=== PATIENT | male | born 1995 | race Caucasian/White ===

== ENCOUNTER 2022-04-01 10:30 | Outpatient (RCR) | payer OTHER, MEDICARE, MEDICAID, SELFPAY | END 2022-05-11 11:22 | disposition home or self-care (01) | PROVIDERS: PCP Physician Assistant Medical; Visit Provider Physician Assistant Medical | DX: Q05.9 Spina bifida, unspecified (principal); Z51.89 Encounter for other specified aftercare | CPT/HCPCS: 97110; 97140; 97161 ==

== ENCOUNTER 2022-05-27 15:08 | Outpatient (CLI) | payer OTHER, MEDICARE, MEDICAID, SELFPAY ==
--- OUTSIDE RECORDS SUMMARY | 2022-05-27 10:12 | XMS_ITS | Clinical Summary ---
:1995 Author Organization [facility] Address [address] [place] [address] Care Team Providers Name Role Phone Rob Tillman MD Primary Care Provider Source Comments You are receiving this document as you are listed as the primary care provider,follow-up provider, or the patient has been referred to you for consultation.This is in compliance with the Medicare and Medicaid EHR Incentive Program,which states Providers who transition their patient to another setting of careor provider of care or refers their patient to another provider of care shouldprovide summarycare record for each transition of care or referral. [facility] Allergies Active Allergy Reactions Severity Noted Date Comments Adhesive Rash 04/13/2013 Latex Other, see comments 09/12/2002 Precauti on Molds & Smuts Other, see comments 06/06/2012 [place] mo ld- Respiratory Distress Other Swelling 06/02/2012 Spider Venom: S evere local swelling Pollen Extract Breathing Difficulty High 06/02/2012 Nasal congestion Medications Medication Sig Dispensed Refills Start Date End Date Status Multiple daily. 0 Active Vitamins-Minerals (CENTRUM ADULTS OR) Carnitine 250 MG 500 mg Codeine 0 Active daily. cholecalciferol (VITAMIN Take 5,000 Units 0 Active D3) 1000 units tablet by mouth daily. cetirizine (ZYRTEC) 10 Take 1 Tablet by 0 06/02/2012 Active MG tablet mouth. ARIPiprazole (ABILIFY) 5 Take 1 Tablet (5 90 Tablet 1 12/12/19 22 Active MG tablet mg) by mouth daily. buPROPion (WELLBUTRIN Take 1 Tablet 90 Tablet 1 12/11/2021 Active XL) 300 MG 24 hour (300 mg) by release tablet mouth daily. sertraline (ZOLOFT) 100 Take 1 Tablet 90 Tablet 1 12/11/2021 Active MG tablet (100 mg) by mouth daily. methylphenidate Take 1 Tablet 90 Tablet 0 04/01/2022 Active (CONCERTA) 54 MG (54 mg) by mouth controlled release daily. tablet Active Problems Problem Noted Date Neurogenic dysfunction of the urinary bladder 12/19/19 21 Pelvic floor dysfunction 12/18/2020 Impaired mobility 10/13/2019 ADHD (attention deficit hyperactivity disorder), inatt entive type 08/30/2019 Nonverbal learning disorder 08/30/2019 Alternating esotropia with A pattern, s/p bimedial rec ession 10/05/07, then 09/23/2018 repair consecutive XT with bimedial advancement Overview: Surgery at [facility] - see scanned rec ords Hodgkin lymphoma, unspecified, lymph nodes of axilla a nd upper limb 04/21/2018 Spina bifida 04/21/2018 Attention deficit hyperactivity disorder (ADHD), combi divya type 06/07/2017 Major depressive disorder, single episode, severe 05/28 Mild intermittent asthma 06/03/2006 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 08/26 Encounters Date Type Specialty Care Team Description 05/13/2022 Office Visit Hematology and Wyatt Oneil Hodgki n lymphoma, Oncology unspecified, ly mph nodes of axilla and upper limb (HRC ) (Primary Dx) 04/17/2022 Lab Visit Laboratory Organic erectil e dysfunction 04/09/2022 Office Visit Urology Raj Castro, Organic er ectile dysfunction (Primary Dx); Neurogenic thalia gina 03/31/2022 Refill Psychiatry Humera Bush Refill MD (methylphenidat e); Rachelle 03/27/2022 Telemedicine Psychiatry Humera Bush, ADHD (at tention deficit hyperactivity disorder), inattentive type (HRC) (Primary Dx); Nonverbal learn ing disorder; Major depressiv e disorder, single episode, severe (HRC); Spina bifida, u nspecified hydrocephalus presence, unspecified spinal region (HRC); Anxiety (HRC) from Last 3 Months Immunizations Name Administration Dates Next Due Influenza IIV4 (Quadrivalent) 0.5mL (49438) 06/29/2019 Pfizer (Comirnaty) COVID-19, 12+ Yrs Purple Top 11/15/2020, 10/25/2020 Family History Medical History Relation Name Comments Glaucoma Negative Family History Macular Degeneration Negative Family History Retinal Detachment Negative Family History Social History Tobacco Use Types Packs/Day Years Used Date Smoking Tobacco: Never Smokeless Tobacco: Never Alcohol Use Standard Drinks/Week Comments Yes 0 (1 standard drink = 0.6 oz pure alcoho l) occasional Sex Assigned at Date Recorded Male 07/12/2021 3:57 PM UTILIZATION REVIEW NURSE Last Filed Vital Signs Vital Sign Reading Time Taken Comments Blood Pressure 135/72 05/13/2022 3:49 PM UTILIZATION REVIEW NURSE Pulse 82 05/13/2022 3:49 PM UTILIZATION REVIEW NURSE Temperature 36.6 ??C (97.8 ??F) 05/13/2022 3:49 PM UTILIZATION REVIEW NURSE Respiratory Rate 18 05/13/2022 3:49 PM UTILIZATION REVIEW NURSE Oxygen Saturation 100% 05/13/2022 3:49 PM UTILIZATION REVIEW NURSE Inhaled Oxygen Concentration - - Weight 69.3 kg (152 lb 12.8 oz) 05/13/2022 3:49 PM UTILIZATION REVIEW NURSE Height 154.9 cm (5' 1) 12/18/2020 2:08 PM CDT Body Mass Index 28.87 12/18/2020 2:08 PM CDT Plan of Treatment Upcoming Encounters Date Type Specialty Care Team Description 06/12/2022 Appointment Urology Raj Castro MD [address] [place], [place] [address] (Wo rk) 09/28/2022 Telemedicine Psychiatry Humera Bush MD [address] [place], [place] [address] (Wo rk) Health Maintenance Due Date Last Done Comments Hep C Screening (Preventive 1996 Services) HepB (1) 1996 Pneumococcal (1 - PCV) 2002 HIV Screening (Preventive 2012 Services) DTaP/Tdap/Td (6 - Tdap) 02/15/2014 02/14/2014, 10/30/2008, 10/10/2001, Additional history exists HPV Vaccine (2 - Male 09/12/2014 08/15/2014 3-dose series) HepA (2 of 2 - 2-dose 02/12/2015 08/15/2014 series) Zoster/Shingles (1 of 2) 2015 COVID-19 Vaccine (3 - 01/10/2021 11/15/2020, 10/25/2020 Booster for Pfizer series) Medicare Annual Wellness 06/28/2021 06/29/2019 Visit Asthma ACT 07/19/2021 07/19/2020, 07/19/2020, 08/16/2019, Additional history exists Influenza (#1) 2022 06/29/2019, 04/24/2016, 05/23/2014, Additional history exists MCV4 Completed 08/15/2014 Hib Aged Out No longer eligib le based on patient 's age to complete this topic IPV (Polio) Aged Out No longer eligib le based on patient 's age to complete this topic Procedures Procedure Name Priority Date/Time Associated Diagnosis Comme nts COMPLETE BLOOD STAT 05/13/2022 4:26 PM Hodgkin lymphoma, Re sults for this COUNT-W/DIFF UTILIZATION REVIEW NURSE unspecified, lymph procedure are in nodes of axilla and the resu lts upper limb (HRC) section. ANTITHYROID Routine 05/13/2022 4:26 PM Hodgkin lymphoma, Resu lts for this PEROXIDASE UTILIZATION REVIEW NURSE unspecified, lymph procedure are in nodes of axilla and the resu lts upper limb (HRC) section. TSH, SENSITIVE Routine 05/13/2022 4:26 PM Hodgkin lymphoma, Re sults for this UTILIZATION REVIEW NURSE unspecified, lymph procedure are in nodes of axilla and the resu lts upper limb (HRC) section. ESR Routine 05/13/2022 4:26 PM Hodgkin lymphoma, Resu lts for this UTILIZATION REVIEW NURSE unspecified, lymph procedure are in nodes of axilla and the resu lts upper limb (HRC) section. LD TOTAL (LDH) Routine 05/13/2022 4:26 PM Hodgkin lymphoma, Re sults for this UTILIZATION REVIEW NURSE unspecified, lymph procedure are in nodes of axilla and the resu lts upper limb (HRC) section. BASIC METABOLIC PANEL STAT 05/13/2022 4:26 PM Hodgkin lymph tony, Results for this UTILIZATION REVIEW NURSE unspecified, lymph procedure are in nodes of axilla and the resu lts upper limb (HRC) section. CBC AND DIFFERENTIAL STAT 05/13/2022 4:26 PM Hodgkin lympho ma, Results for this PANEL UTILIZATION REVIEW NURSE unspecified, lymph procedure are in nodes of axilla and the resu lts upper limb (HRC) section. LIPID PANEL AND Routine 04/17/2022 8:34 AM Organic erectile Re sults for this DIRECT LDL(IF NEEDED) CDT dysfunction proced ure are in the results section. HGB A1C Routine 04/17/2022 8:34 AM Organic erectile Resul ts for this CDT dysfunction procedure are i n the results section. TESTOSTERONE, MALES Routine 04/17/2022 8:34 AM Organic erectil e Results for this CDT dysfunction procedure are i n the results section. from Last 3 Months Results (ABNORMAL) Complete Blood Count-W/Diff (05/13/2022 4:26 PM UTILIZATION REVIEW NURSE) Analysis Performed At Patho logist Time Signature WBC 4.6 3.5 - 10.5 05/13/2022 [facility] x10(9)/L 4:[address] [facility] RBC 5.07 4.32 - 05/13/2022 [facility] 5.72 4:[address] [facility] x10(12)/L Hemoglobin 16.1 13.5 - 05/13/2022 [facility] 17.5 g/dL 4:[address] [facility] HCT 45.1 38.8 - 05/13/2022 [facility] 50.0 % 4:[address] [facility] MCV 89.0 80.0 - 05/13/2022 [facility] 100.0 fL 4:[address] [facility] MCH 31.8 27.6 - 05/13/2022 [facility] 33.3 pg 4:[address] [facility] MCHC 35.7 (H) 31.5 - 05/13/2022 [facility] 35.2 g/dL 4:[address] [facility] RDW 12.2 11.9 - 05/13/2022 [facility] 15.5 % 4:[address] [facility] Platelets 231 150 - 450 05/13/2022 [facility] x10(9)/L 4:37 PM UTILIZATION RE[facility]SE [facility] Automated NRBC 0 <=0 /100 05/13/2022 [facility] WBC 4:37 PM [facility] Neutrophil 2.2 1.7 - 7.0 05/13/2022 [facility] Absolute 10(9)/L 4:37 PM [facility] Lymphocyte 1.6 1.0 - 4.8 05/13/2022 [facility] Absolute 10(9)/L 4:37 PM [facility] Monocytes 0.6 0.2 - 0.9 05/13/2022 [facility] Absolute 10(9)/L 4:37 PM [facility] Eosinophil 0.2 0.0 - 0.5 05/13/2022 [facility] Absolute 10(9)/L 4:37 PM [facility] Basophil 0.1 0.0 - 0.3 05/13/2022 [facility] Absolute 10(9)/L 4:37 PM [facility] Automated Neut 2.2 10(9)/L 05/13/2022 [facility] Count (Prelim) 4:37 PM [facility] Comment: The Instrument Absolute Neutrop hil Count (IANC) is calculated from the automated differential and may differ sl ightly from the manual differential Absolute Neutrophil Count (IANC), if subsequently reported. Immature Gran % 0.0 0.0 - 0.5 % 05/13/2022 4:37 PM [facility] Specimen Anatomical Collection Method / Collection Time Recei rufus Time (Source) Location / Volume Laterality Blood Lab OP Venipuncture 05/13/2022 4:26 05/13 4:31 / Unknown PM UTILIZATION REVIEW NURSE PM UTILIZATION REVIEW NURSE Wyatt Oneil MD LAB_1 Performing Organization Address City/[facility]/ZIP [facility] Phon e Number [address] [address] TSH - today (05/13/2022 4:26 PM UTILIZATION REVIEW NURSE) P athologist Signature TSH, Sensitive 2.81 0.30 - 05/13/2022 [facility] 4.50 5:19 PM [facility] uIU/mL Specimen Anatomical Collection Method / Collection Time Recei rufus Time (Source) Location / Volume Laterality Blood Lab OP Venipuncture 05/13/2022 4:26 05/13 4:31 / Unknown PM UTILIZATION REVIEW NURSE PM UTILIZATION REVIEW NURSE Wyatt Oneil MD LAB_1 Performing Organization Address City/State/ZIP [facility] Phon e Number [address] [place] [address] Basic Metabolic Panel - STAT (05/13/2022 4:26 PM UTILIZATION REVIEW NURSE) athologist Signature Sodium 138 136 - 145 05/13/2022 [facility] mmol/L 5:06 PM [facility] Potassium 3.9 3.5 - 5.1 05/13/2022 [facility] mmol/L 5:06 PM [facility] Chloride 100 98 - 109 05/13/2022 [facility] mmol/L 5:[address] [facility] CO2 28 20 - 29 05/13/2022 [facility] mmol/L 5:06 PM [facility] Anion Gap 10 7 - 16 05/13/2022 [facility] mmol/L 5:06 PM [facility] Calcium 9.9 8.4 - 10.4 05/13/2022 [facility] mg/dL 5:06 PM [facility] BUN 15 7 - 26 05/13/2022 [facility] mg/dL 5:06 PM [facility] Creatinine 0.90 0.73 - 1.18 05/13/2022 [facility] mg/dL 5:06 PM [facility] Glucose 91 70 - 100 05/13/2022 [facility] mg/dL 5:06 PM [facility] Comment: The given reference range is fo r the fasting state. Non-fasting reference range for glucose is 70 - 180 mg/dL. Hours Fasting N/A 05/13/2022 5:06 PM [facility] GFR, Estimated >60 >60 mL/min/1.73m2 05/13/2022 5:06 P [facility] Specimen Anatomical Collection Method / Collection Time Recei rufus Time (Source) Location / Volume Laterality Blood Lab OP Venipuncture 05/13/2022 4:26 05/13 4:31 / Unknown PM UTILIZATION REVIEW NURSE PM UTILIZATION REVIEW NURSE Wyatt Oneil MD LAB_1 Performing Organization Address City/State/ZIP Code Phon e Number [facility] [address] [place] [address] Thyroperoxidase (TPO) Antibody (05/13/2022 4:26 PM UTILIZATION REVIEW NURSE) Patholo gist Method Time Signature Thyroperoxidase Ab <1 <=8 IU/ml 05/14/2022 [facility] 12:43 PM [facility] UTILIZATION REVIEW NURSE Specimen Anatomical Collection Method / Collection Time Recei rufus Time (Source) Location / Volume Laterality Blood Lab OP Venipuncture 05/13/2022 4:26 05/13 4:31 / Unknown PM UTILIZATION REVIEW NURSE PM UTILIZATION REVIEW NURSE Wyatt Oneil MD LAB_1 Performing Organization Address [facility]/ZIP Code Phon e Number [facility] [address] [address] Lactate Dehydrogenase (LDH) (05/13/2022 4:26 PM UTILIZATION REVIEW NURSE) P athologist Signature LD 172 119 - 235 05/13/2022 [facility] U/L 4:55 PM UTIL[facility]ATION REVIEW [facility]SE [facility]OSPITAL Specimen Anatomical Collection Method / Collection Time Recei rufus Time (Source) Location / Volume Laterality Blood Lab OP Venipuncture 05/13/2022 4:26 05/13 4:31 / Unknown PM UTILIZATION REVIEW NURSE PM UTILIZATION REVIEW NURSE Wyatt Oneil MD LAB_1 Performing Organization Address [facility] e Number [address] [address] ESR (Sedimentation Rate) (05/13/2022 4:26 PM UTILIZATION REVIEW NURSE) Analysis Performed At Patho logist Time Signature Sedimentation Rate 2 0 - 15 05/13/2022 [facility] mm/hr 5:38 PM UTILIZATION REVIEW NURSE HOSPITAL Specimen Anatomical Collection Method / Collection Time Recei rufus Time (Source) Location / Volume Laterality Blood Lab OP Venipuncture 05/13/2022 4:26 05/13 4:31 / Unknown PM UTILIZATION REVIEW NURSE PM UTILIZATION REVIEW NURSE Wyatt Oneil MD LAB_1 Performing Organization Address City/[facility] Phon e Number [address] [address] (ABNORMAL) Lipid Panel and Direct LDL (If Needed) (04/17/2022 8:34 AM CDT) Patholo gist Method Time Signature Cholesterol 210 (H) 0 - 199 04/17/2022 [facility] mg/dL 11:09 AM CENTRAL LAB CDT Triglyceride 191 (H) <=149 04/17/2022 [facility] mg/dL 11:09 AM [facility]AL LAB CDT HDL Cholesterol 33 (L) >=40 04/17/2022 [facility] mg/dL 11:09 AM [facility] CDT LDL, Calculated 139 (H) <130 04/17/2022 [facility] mg/dL 11:09 AM [facility] LAB CDT Non HDL Chol, 177 (H) <=159 04/17/2022 [facility] Calculated mg/dL 11:09 AM [facility]TRAL LAB CDT Cholesterol/HDL 6.4 04/17/2022 [facility] Ratio 11:09 AM [facility] LAB CDT Hours Fasting 0 04/17/2022 [facility] 11:09 AM CDT Specimen Anatomical Collection Method / Collection Time Recei rufus Time (Source) Location / Volume Laterality Blood Venipuncture / 04/17/2022 8:34 04/17/2022 8:38 Unknown AM CDT AM CDT Raj Castro MD LAB_1 Performing Organization Address [facility] Phon e Number [facility] [address] [address] [facility] [address] [place] [address] Testosterone,Adult Males or Individuals on Testosterone Hormone Therapy (04/17/2022 8:34 AM CDT) Analysis Performed At Patho logist Time Signature Testosterone 389 200 - 745 04/17/2022 [facility] ng/dL 11:40 AM CDT CENTRAL LAB Specimen Anatomical Collection Method / Collection Time Recei rufus Time (Source) Location / Volume Laterality Blood Venipuncture / 04/17/2022 8:34 04/17/2022 8:38 Unknown AM CDT AM CDT Raj Castro MD LAB_1 Performing Organization Address City/[facility] Phon e Number [facility] [address] [address] Hgb A1C (04/17/2022 8:34 AM CDT) Patholo gist Method Time Signature Hemoglobin A1C 4.8 <=5.6 % 04/17/2022 [facility] 11:44 AM CDT CEN[facility]AL LAB Specimen Anatomical Collection Method / Collection Time Recei rufus Time (Source) Location / Volume Laterality Blood Venipuncture / 04/17/2022 8:34 04/17/2022 8:38 Unknown AM CDT AM CDT Raj Castro MD LAB_1 Performing Organization Address City/State/ZIP Code Phon e Number [facility] [address] [place] [phone] from Last 3 Months Insurance Payer Benefit Plan Subscriber ID Effective Phone Address Typ e / Group Dates [facility] SELF [id number] 2014-Prese Commercial INSURED nt [employer]ARE [employer] [id number] 2021-Prese [phone] Medicare PLUS MEDICARE nt 07 Fly Moran Personal/Family Self 1995 [address] (Home) [address] [place] [id number] Care Teams Weatherization Specialist Relationship Specialty Start Date End Date Rob Tillman MD PCP - General Physical Medicine and 08/01/19 [address] [facility] [place], [place] [id number]
--- OUTSIDE RECORDS SUMMARY | 2022-05-27 10:12 | XMS_ITS | Encounter Summary ---
:1995 Author Organization Formerly [facility] Address [address] [place] [address] Care Team Providers Name Role Phone Rob Tillman MD Primary Care Provider Encounter Details Date Type Department Care Team Description 05/13/2022 Office Visit [facility] Cancer [facility], [facility] MD Brina unspecified, [facility] [address] [facility] nodes of axilla and [address] [place], [place] upper limb (HRC) [place] [phone] (Primary Dx) [phone] Social History Tobacco Use Types Packs/Day Years Used Date Smoking Tobacco: Never Smokeless Tobacco: Never Alcohol Use Standard Drinks/Week Comments Yes 0 (1 standard drink = 0.6 oz pure alcoho l) occasional Sex Assigned at Date Recorded Male 07/12/2021 3:57 PM [employer] documented as of this encounter Last Filed Vital Signs Vital Sign Reading Time Taken Comments Blood Pressure 135/72 05/13/2022 3:49 PM [employer] Pulse 82 05/13/2022 3:49 PM [employer] Temperature 36.6 ??C (97.8 ??F) 05/13/2022 3:49 PM [employer] Respiratory Rate 18 05/13/2022 3:49 PM [employer] Oxygen Saturation 100% 05/13/2022 3:49 PM [employer] Inhaled Oxygen Concentration - - Weight 69.3 kg (152 lb 12.8 oz) 05/13/2022 3:49 PM [employer] Height - - Body Mass Index 28.87 12/18/2020 2:08 PM CDT documented in this encounter Patient Instructions Patient InstructionsWiIsabel cordoba - 05/13/2022 3:50 PM CST DIAGNOSES: 1. 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 2. Mild neutropenia, persistent following prior chemotherapy. TREATMENT: 1. 4 months of ABVE-PC chemotherapy followed by 2100 cGy of radiation therapy to the chest and mediastinum, completed June 2013. PLAN: Lab work today Return 1 year Wyatt Oneil MD Patient placed on 1 year wait list and directed to OP lab. SCW 4:22 PM 05/13/22 ER AIRCRAFT documented in this encounter Progress Notes Wyatt Oneil MD - 05/13/2022 3:50 PM CST This office note has been dictated. [phone] Wyatt Oneil MD ER AIRCRAFT Karen Heath RN - 05/13/2022 3:50 PM CST Completed per provider's orders. Patient sent to OP lab Placed on 1 year waitlist for follow up with Dr. Oneil QOPI: Is patient starting new chemotherapy medications today or in the near future? No Karen Clark RN BSN 05/13/2022 4:28 PM ER AIRCRAFT Wyatt Oneil MD - 05/13/2022 12:00 AM CST NAME: LUCÍA MARTINEZ CSN: [id number] CLINIC NOTE DATE OF SERVICE: 05/13/2022 : 1995 DIAGNOSES: 1.History of stage II nodular-sclerosing Hodgkin lymphoma diagnosed in February 2013 at [facility], manifesting as 6.4 cm mediastinal mass with PET scan evidence of bilateral axillae and supraclavicular lymph node involvement identified with PET-CT and bone marrow biopsy. 2.Mild neutropenia persisting following prior chemotherapy. 3.Spina bifida. TREATMENT: Four months of ABVE-PC chemotherapy, followed by 2100 cGy of radiation therapy to the chest and mediastinum completed June 2013. SUBJECTIVE: Patient and his mother return for followup of a history of stage II nodular-sclerosing Hodgkin lymphoma. He is a 26-year-old man, now nearly 9 years status post completion of all therapy. For the most part, he feels well. He has been evaluated for erectile dysfunction. He follows with Dr. Tillman for spina bifida. 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 He still admits to fatigue. He has had a somewhat pruritic papular rash over his arms, which he feels isrelated to picking his skin. He has had no fevers, night sweats, or weight loss. There have been no infectious symptoms. He has been fully vaccinated for COVID-19, but also suffered COVID infection last July. PHYSICAL EXAMINATION: HEENT: There is no conjunctival pallor. Lymph: There is no cervical or axillary adenopathy. Neck: There is no thyromegaly. Skin: He has a number of excoriated papules over his arms. There is a little erythema in his lumbosacral incision. Lungs: Clear. Heart: Regular. Abdomen: Soft. No hepatosplenomegaly. ASSESSMENT: Nine years following chemoradiotherapy for stage IIA Hodgkin lymphoma with no clinical evidence of recurrence. PLAN: He is due for repeat labs today. He will return to clinic in 1 year. WYATT ONEIL MD [facility]ICOLE /[id number] ER AIRCRAFT documented in this encounter Plan of Treatment Upcoming Encounters Date Type Specialty Care Team Description 06/12/2022 Appointment Urology Raj Castro MD [address] [place] [address] [phone] (Wo rk) 09/28/2022 Telemedicine Psychiatry Humera Bush MD [address] [place] [phone] (Wo rk) documented as of this encounter Procedures Procedure Name Priority Date/Time Associated Comments Diagnosis CBC AND DIFFERENTIAL STAT 05/13/2022 4:26 PM Hodgkin lympho ma, Results for this PANEL [employer] unspecified, lymph procedure are in nodes of axilla and the resu lts upper limb (HRC) section. COMPLETE BLOOD STAT 05/13/2022 4:26 PM Hodgkin lymphoma, Re sults for this COUNT-W/DIFF [employer] unspecified, lymph procedure are in nodes of axilla and the resu lts upper limb (HRC) section. TSH, SENSITIVE Routine 05/13/2022 4:26 PM Hodgkin lymphoma, Re sults for this [employer] unspecified, lymph procedure are in nodes of axilla and the resu lts upper limb (HRC) section. BASIC METABOLIC PANEL STAT 05/13/2022 4:26 PM Hodgkin lymph tony, Results for this [employer] unspecified, lymph procedure are in nodes of axilla and the resu lts upper limb (HRC) section. ANTITHYROID Routine 05/13/2022 4:26 PM Hodgkin lymphoma, Resu lts for this PEROXIDASE [employer] unspecified, lymph procedure are in nodes of axilla and the resu lts upper limb (HRC) section. LD TOTAL (LDH) Routine 05/13/2022 4:26 PM Hodgkin lymphoma, Re sults for this [employer] unspecified, lymph procedure are in nodes of axilla and the resu lts upper limb (HRC) section. ESR Routine 05/13/2022 4:26 PM Hodgkin lymphoma, Resu lts for this [employer] unspecified, lymph procedure are in nodes of axilla and the resu lts upper limb (HRC) section. documented in this encounter Results (ABNORMAL) Complete Blood Count-W/Diff (05/13/2022 4:26 PM [employer]) Analysis Performed At [facility] logist Time Signature WBC 4.6 3.5 - 10.5 05/13/2022 [facility] x10(9)/L 4:37 PM [facility] RBC 5.07 4.32 - 05/13/2022 [facility] 5.72 4:37 PM [facility] x10(12)/L Hemoglobin 16.1 13.5 - 05/13/2022 [facility] 17.5 g/dL 4:37 PM [facility] HCT 45.1 38.8 - 05/13/2022 [facility] 50.0 % 4:37 PM [facility] MCV 89.0 80.0 - 05/13/2022 [facility] 100.0 fL 4:37 PM [facility] MCH 31.8 27.6 - 05/13/2022 [facility] 33.3 pg 4:37 PM [facility] MCHC 35.7 (H) 31.5 - 05/13/2022 [facility] 35.2 g/dL 4:37 PM [facility] RDW 12.2 11.9 - 05/13/2022 [facility] 15.5 % 4:37 PM [facility] Platelets 231 150 - 450 05/13/2022 [facility] x10(9)/L 4:37 PM [facility] Automated NRBC 0 <=0 /100 05/13/2022 [facility] WBC 4:37 PM [facility] Neutrophil 2.2 1.7 - 7.0 05/13/2022 [facility] Absolute 10(9)/L 4:37 PM [facility] Lymphocyte 1.6 1.0 - 4.8 05/13/2022 [facility] Absolute 10(9)/L 4:37 PM [facility] Monocytes 0.6 0.2 - 0.9 05/13/2022 [facility] Absolute 10(9)/L 4:37 PM [facility] Eosinophil 0.2 0.0 - 0.5 05/13/2022 [facility] Absolute 10(9)/L 4:37 PM [facility] Basophil 0.1 0.0 - 0.3 05/13/2022 [facility] Absolute 10(9)/L 4:37 PM [facility] Automated Neut 2.2 10(9)/L 05/13/2022 [facility] Count (Prelim) 4:37 PM [facility] Comment: The Instrument Absolute Neutrop hil Count (IANC) is calculated from the automated differential and may differ sl ightly from the manual differential Absolute Neutrophil Count (IANC), if subsequently reported. Immature Gran % 0.0 0.0 - 0.5 % 05/13/2022 4:37 PM [employer] [facility] Specimen Anatomical Collection Method / Collection Time Recei rufus Time (Source) Location / Volume Laterality Blood Lab OP Venipuncture 05/13/2022 4:26 05/13 4:31 / Unknown PM [employer] PM [employer] Wyatt Oneil MD LAB_1 Performing Organization Address [facility]/ZIP Code Phon e Number [address] [address] Thyroperoxidase (TPO) Antibody (05/13/2022 4:26 PM [employer]) Patholo gist Method Time Signature Thyroperoxidase Ab <1 <=8 IU/ml 05/14/2022 [facility] NERS 12:43 PM CENTRAL LAB [employer] Specimen Anatomical Collection Method / Collection Time Recei rufus Time (Source) Location / Volume Laterality Blood Lab OP Venipuncture 05/13/2022 4:26 05/13 4:31 / Unknown PM [employer] PM [employer] Wyatt Oneil MD LAB_1 Performing Organization Address [facility]/ZIP [facility] Phon e Number [facility] CENTRAL LAB [address] [address] TSH - today (05/13/2022 4:26 PM [employer]) P athologist Signature TSH, Sensitive 2.81 0.30 - 05/13/2022 [facility] 4.50 5:19 PM [facility] uIU/mL Specimen Anatomical Collection Method / Collection Time Recei rufus Time (Source) Location / Volume Laterality Blood Lab OP Venipuncture 05/13/2022 4:26 05/13 4:31 / Unknown PM [employer] PM [employer] Wyatt Oneil MD LAB_1 Performing Organization Address [facility]/ZIP [facility] Phon e Number [address] [address] ESR (Sedimentation Rate) (05/13/2022 4:26 PM [employer]) Analysis Performed At Patho logist Time Signature Sedimentation Rate 2 0 - 15 05/13/2022 [facility] mm/hr 5:38 PM [facility] Specimen Anatomical Collection Method / Collection Time Recei rufus Time (Source) Location / Volume Laterality Blood Lab OP Venipuncture 05/13/2022 4:26 05/13 4:31 / Unknown PM [employer] PM [employer] Wyatt Oneil MD LAB_1 Performing Organization Address [facility] e Number [address] [address] Lactate Dehydrogenase (LDH) (05/13/2022 4:26 PM [employer]) athologist Signature LD 172 119 - 235 05/13/2022 [facility] U/L 4:55 PM [facility] Specimen Anatomical Collection Method / Collection Time Recei rufus Time (Source) Location / Volume Laterality Blood Lab OP Venipuncture 05/13/2022 4:26 05/13 4:31 / Unknown PM [employer] PM [employer] Wyatt Oneil MD LAB_1 Performing Organization Address [facility] e Number [address] [address] Basic Metabolic Panel - STAT (05/13/2022 4:26 PM [employer]) athologist Signature Sodium 138 136 - 145 05/13/2022 [facility] mmol/L 5:06 PM [facility] Potassium 3.9 3.5 - 5.1 05/13/2022 [facility] mmol/L 5:06 PM [facility] Chloride 100 98 - 109 05/13/2022 [facility] mmol/L 5:06 PM [facility] CO2 28 20 - 29 05/13/2022 [facility] mmol/L 5:06 PM [facility] Anion Gap 10 7 - 16 05/13/2022 [facility] mmol/L 5:06 PM [facility] Calcium 9.9 8.4 - 10.4 05/13/2022 [facility] mg/dL 5:06 PM [facility] BUN 15 7 - 26 05/13/2022 [facility] mg/dL 5:06 PM [facility] Creatinine 0.90 0.73 - 1.18 05/13/2022 [facility] mg/dL 5:06 PM [facility] Glucose 91 70 - 100 05/13/2022 [facility] mg/dL 5:06 PM [facility] Comment: The given reference range is fo r the fasting state. Non-fasting reference range for glucose is 70 - 180 mg/dL. Hours Fasting N/A 05/13/2022 5:06 PM [employer] [facility] GFR, Estimated >60 >60 mL/min/1.73m2 05/13/2022 5:06 P M [employer] [facility] Specimen Anatomical Collection Method / Collection Time Recei rufus Time (Source) Location / Volume Laterality Blood Lab OP Venipuncture 05/13/2022 4:26 05/13 4:31 / Unknown PM [employer] PM [employer] Wyatt Oneil MD LAB_1 Performing Organization Address City/State/ZIP Code Phon e Number [facility] [address] [place] [address] documented in this encounter Visit Diagnoses Diagnosis Hodgkin lymphoma, unspecified, lymph nod es of axilla and upper limb (HRC) - Primary documented in this encounter Care Teams Systems Test Technician Relationship Specialty Start Date End Date Rob Tillman MD PCP - General Physical Medicine and 08/01/[address] [facility] [place] [address] documented as of this encounter
--- OUTSIDE RECORDS SUMMARY | 2022-05-27 10:12 | XMS_ITS | Encounter Summary ---
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 Please schedule an appointment with your primary care provider to discuss treatment options. Rob Tillman MD 04/20/2022, 12:21 PM documented in this encounter Plan of Treatment Upcoming Encounters Date Type Specialty Care Team Description 06/12/2022 Appointment Urology Raj Castro MD [address] [place] [phone] (Wo rk) 09/28/2022 Telemedicine Psychiatry Humera Bush MD [address] [place] [phone] (Wo rk) documented as of this encounter Procedures Procedure Name Priority Date/Time Associated Diagnosis Comme nts LIPID PANEL AND Routine 04/17/2022 8:34 AM Organic erectile Re sults for this DIRECT LDL(IF CDT dysfunction procedure are in NEEDED) the results section. TESTOSTERONE, MALES Routine 04/17/2022 8:34 AM Organic erectil e Results for this CDT dysfunction procedure are i n the results section. HGB A1C Routine 04/17/2022 8:34 AM Organic erectile Resul ts for this CDT dysfunction procedure are i n the results section. documented in this encounter Results (ABNORMAL) Lipid Panel and Direct LDL (If Needed) (04/17/2022 8:34 AM CDT) [facility] gist Method Time Signature Cholesterol 210 (H) 0 - 199 04/17/2022 [facility] mg/dL 11:09 AM CENTRAL LAB CDT Triglyceride [...] CENTRAL LAB CDT Hours Fasting 0 04/17/2022 [facility] 11:09 AM CDT Specimen Anatomical Collection Method / Collection Time Recei rufus Time (Source) Location / Volume Laterality Blood Venipuncture / 04/17/2022 8:34 04/17/2022 8:38 Unknown AM CDT AM CDT Raj aCstro MD LAB_1 Performing Organization Address City/State/ZIP Code Phon e Number [employer] [facility] CENTRAL LAB [address] [address] [facility] [address] [place] [address], [facility] Hgb A1C (04/17/2022 8:34 AM CDT) Patholo gist Method Time Signature Hemoglobin A1C 4.8 <=5.6 % 04/17/2022 [facility] 11:44 AM CDT CENTRAL LAB Specimen Anatomical Collection Method / Collection Time Recei rufus Time (Source) Location / Volume Laterality Blood Venipuncture / 04/17/2022 8:34 04/17/2022 8:38 Unknown AM CDT AM CDT Raj Castro MD LAB_1 Performing Organization Address City/[facility]/ZIP Code Phon e Number [facility] CENTRAL LAB [address] [address] Testosterone,Adult Males or Individuals on Testosterone Hormone Therapy (04/17/2022 8:34 AM CDT) Analysis Performed At Patho logist Time Signature Testosterone 389 200 - 745 04/17/2022 [facility] ng/dL 11:40 AM CDT CENTRAL LAB Specimen Anatomical Collection Method / Collection Time Recei rufus Time (Source) Location / Volume Laterality Blood Venipuncture / 04/17/2022 8:34 04/17/2022 8:38 Unknown AM CDT AM CDT Raj Castro MD LAB_1 Performing Organization Address City/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
--- OUTSIDE RECORDS SUMMARY | 2022-05-27 10:12 | XMS_ITS | Encounter Summary ---
:1995 Author Organization [employer] Address [address] [place] [address] Care Team Providers Name Role Phone Rob Tillman MD Primary Care Provider Reason for Visit Reason Comments CONSULT ED Encounter Details Date Type Department Care Team Description 04/09/2022 Office Visit Specialty Center Raj Castro Org anic erectile dysfunction (Primary Dx); [facility] Neurogenic bladder [address] [place] [address] [place], [place] [phone] [id number] Social History Tobacco Use Types Packs/Day Years Used Date Smoking Tobacco: Never Smokeless Tobacco: Never Alcohol Use Standard Drinks/Week Comments Yes 0 (1 standard drink = 0.6 oz pure alcoho l) occasional Sex Assigned at Date Recorded Male 07/12/2021 3:57 PM [employer] documented as of this encounter Patient Instructions Patient InstructionsRaj Castro MD - 04/09/2022 1:45 PM CDT Images from the original note were not included. What is Erectile Dysfunction? Male Reproductive Organs Erectile dysfunction, or ED, is when it is hard to get or keep an erection that's firm enough for sex. ED affects as many as 30 million men. Most men have problems with erections from time to time. But when this happens more than half of thetime, then ED is present. ED can happen when health problems limit blood flow or damage nerves in the penis. ED can also be caused by stress or emotional reasons. ED can be an early warning of a more serious illness. Heart disease, high blood pressure and high blood sugar can all cause ED. Finding andtreating the cause(s) of your ED can help your overall health and well-being. How Erections Work When you are not sexually aroused, your penis is soft and limp. During sexual arousal, nerve messages release chemicals that increase blood flow into the penis. The blood flows into 2 erection chambersmade of spongy tissue (the corpus cavernosum) in the penis. The smooth muscle in the erection chambers relaxes, which lets blood enter and stay in the chambers. The pressure of the blood in the chambers makes the penis firm, giving you an erection. After you have an orgasm, the blood flows out of the chambers and the erection goes away. What are the Symptoms of ED? When you have ED, it is hard to get or keep an erection that is firm enough for sex. Most men have trouble with erections from time to time, but in some men it is a regular and more bothersome problem.ED can cause: Low self-esteem Performance anxiety Depression Stress ED may affect the quality of a marriage or intimate relationships. What Causes ED? ED can result from health or emotional problems or from both. Lower blood flow or harm to nerves in the penis can lead to erection problems. Physical Causes of ED Some things that can increase the chances of getting ED (known as risk factors) are: Age over 50 High blood sugar (diabetes) High blood pressure High cholesterol Smoking Cardiovascular disease Drug or alcohol abuse Obesity Lack of exercise Even though ED becomes more common as men age, growing old is not the cause of the problem. ED can be an early sign of a more serious health problem. Finding and treating the cause(s) of your ED can improve your overall health and well-being. ED may happen because: Not enough blood flows into the penis Many health issues can reduce blood flow into the penis, such as heart disease, high blood sugar (diabetes), and smoking. The penis cannot store blood during an erection A man with this problem cannot keep an erection because blood does not stay trapped in the penis. This condition can occur in men of any age. Nerve signals from the brain or spinal cord do not reach the penis Certain diseases, injury or surgery in the pelvic area can harm nerves in the penis. Emotional Causes of ED Sex activity needs the mind and body to work together. Emotional or relationship problems can cause or worsen ED. Some emotional issues that can cause ED are: Depression Relationship conflicts Stress at home or work Worry about sexual performance How is ED Diagnosed? Finding the cause of your ED will help your health care provider find the best treatment choices foryou. Most health care providers will ask you about your general health and the history of your erection problem. Your health care provider may also give you a physical exam and order lab tests. Health and ED History Your doctor will ask you questions about your health and lifestyle. For example, certain medicines may be helping to cause your ED. Also, smoking or alcohol use can affect erections. Being open with your health providers will allow them to find the best treatment choices for you. It's important to discuss different things that you can do to improve your condition and your health. What Questions Might My Health Care Provider Ask? Questions About Health Problems Some questions you may be asked are: What health problems do you have? What medicines do you take? Do you smoke, drink, or use other drugs? If so, how much? Do you have any prior history of surgery or radiation therapy, especially in the pelvic area? Do you have urinary problems? Questions About ED Asking questions about your history of ED can help your health care provider find out whether your problems are with desire for sex, erection, ejaculation, or orgasm (climax). Some of these questions will be personal and may seem embarrassing. Honest answers will help find the cause and best treatmentfor your ED. Some questions about your ED that you may be asked are: How long have you had these symptoms? Did they start slowly or all at once? Do you wake up in the morning with an erection? Do you wake up during the night with an erection? If you do have erections, how firm are they? Is penetration difficult? Do your erections change at different times such as when entering a partner, during stimulation by mouth or with masturbation? Do you have problems with sex drive, arousal, ejaculation, or orgasm (climax)? How is this problem affecting your enjoyment of sex? What effect is this problem having on your relationship (if you are in one)? Questions About Stress and Emotional Health Your health care provider may ask you questions about feelings such as depression or worry. He or she may also ask about problems in your relationship with a partner. Some health care providers may askif it is okay to talk to your sex partner, also. Some questions you may be asked about your emotional health are: How is your relationship with your partner? Has anything changed lately? How satisfied are you with your sex life? Has anything changed lately? Are you under a lot of stress most of the time? Or has anything especially upsetting happened to you? Do you have any mental illnesses or depression? Are you taking any meds for depression or anxiety? Physical Exam A physical exam checks overall health. This may involve checking your blood pressure, penis and testicles. You may need to have a rectal exam to check your prostate. These tests are not painful and maygive useful information about the cause of your ED. Most patients do not need a lot of testing before starting treatment. Lab Tests To test for diseases that cause ED, your health care provider may order blood tests and collect a urine sample. Other Tests Erectile Function Tests Your health care provider will test to see how the blood vessels, nerves, muscles and other tissues of your penis and pelvic area are working. Normal nocturnal penile tumescence (NPT), or healthy automatic erections during sleep, shows that your nerves and blood supply are working properly. Imaging A duplex ultrasound shows what's happening inside your body by bouncing sound waves off an organ to form pictures on a monitor. It checks for blood flow, vein leaks, scars on erectile tissue and some signs of clogged arteries. If you take this test, you may be given an injection into your penis to cause an erection. The desktop technician can then see how the blood flow and pressure changes in your penis, aswell as how it expands. These images are compared to images of the limp penis. How is ED Treated? The treatment for ED depends on what is causing it. Your health care provider may ask you to change certain habits, stop smoking, or using drugs or alcohol. He or she may suggest treatment for emotional problems, relationship conflicts, depression, or performance anxiety. Or you may be asked to change the way you take other medicines. (Never stop or change any drug without first talking to your health care provider.) Testosterone Replacement Therapy If a blood test shows low testosterone levels (low T), testosterone replacement therapy (TRT) may help. However, adding TRT will not help your erection problems if you have normal testosterone levels. Supplements Dietary supplements (often called herbal remedies) for ED are popular but may not be safe or even work. Unlike prescription drugs, they do not have to be proven to work to be sold. Check with your health care provider before you take any supplements or drugs to treat your ED. Other Treatments Most of the best-known treatments for ED work well and are safe. But in making your choice, ask yourhealth care provider about any possible problems that could result with each option: Vacuum erection device Oral drugs Drugs in the penis Surgery Vacuum Erection Device Vacuum Erection Device National [place] of Diabetes and Digestive and Kidney Diseases, National Institutes of Health A vacuum erection device is a plastic tube that slips over the penis, making a seal with the skin ofthe body. A pump at the other end of the tube creates a low-pressure vacuum around the erectile tissue, which results in an erection. An elastic ring is then slipped onto the base of the penis. This holds the blood in the penis (and keeps it hard) for up to 30 minutes. With proper training, 75 out of 100 men can get a working erection using a vacuum erection device. Oral Drugs Drugs known as PDE-5 inhibitors relax muscle cells in the penis and increase blood flow. (These are the drugs you often see on TV and in Internet ads.) Viagra?? (sildenafil citrate) Levitra?? (vardenafil HCl) Cialis?? (tadalafil) Men with ED take these pills before having sex. The drugs boost the natural signals that are generated during sex to help you have a better erection that lasts longer. The drug works by relaxing the muscle cells in the penis, letting the blood flow better to give a firm erection. These drugs often work well, and nearly 80 out 100 men show improvement once they start using them. The side effects of PDE-5 inhibitors are mild and often last just a short time. The side effects also get weaker the longer you use the drug. The most common side effects are: Headache Stuffy nose Flushing Muscle aches In rare cases, sildenafil can cause blue-green shading of vision that lasts for a short time. There is no long-term risk and the problem goes away as the amount of the drug in the body lowers. It is important to follow the instructions for taking this drug to get the best results. If you are taking nitrates for your heart, you should speak with your health care provider before using a PDE-5 inhibitor to learn how it might affect your health. Drugs in the Penis If oral drugs don't work, another drug, alprostadil, is approved for use in men with ED. This drug comes in two forms, depending on how it is to be used: Self-Injection Therapy Medical Injections for Impotence The drug is injected into the side of penis with a very fine needle. The success rate for getting anerection firm enough to have sex is as high as 85%. Intraurethral Therapy Transurethral Therapy for Impotence A tiny medicated pellet of the drug is placed in the urethra (the tube that carries urine out of your body). Using the drug this way avoids having to give yourself a shot, but makes it less likely to work. The most common side effects of alprostadil are a burning feeling in the penis, and an erection thatcan last for over four hours and need medical attention to make it go down. Surgical Treatment When other treatments do not improve ED, your health care provider may offer you surgery. Surgeries that help treat ED are penile implant surgery and surgeries to fix problems with blood vessels in thepenis. Fixing blood vessels only helps in very specific cases. Penile Prostheses Penile implants (also called penile prostheses) are devices that are placed completely inside your body. They produce a stiff penis that lets you have normal sex. Penile implants are a good treatment choice for some men. There are two types of penile implants. Bendable Implant The simplest kind of implant consists of 2 [id number] rods that are most often made of silicone. These silicone rods give the man's penis the firmness needed to have sex. The implant can be bent downward for peeing or upward for sex. Inflatable Implant Penile Pump Implant - Inflatable Image ?? 2002 [employer]. With an inflatable implant, fluid-filled cylinders are placed lengthwise in the penis. Tubing connects these rods to a pump that is placed inside the scrotum (the sac that holds the testicles). When the pump pushes fluid into the cylinders, they make the penis hard. Inflatable implants are the most natural feeling of the penile implants, as they let you control firmness and size. In the simplest inflatable implants, the pump moves a small amount of fluid into the cylinders for erection then out again when erection is no longer needed. These devices are often called 2-part (or 2-component) penile implants. One part is the paired cylinders and the second part is the scrotal pump. A 3-part inflatable penile implant has paired cylinders, a scrotal pump, and a fluid reservoir in the belly. With these three-part devices, a larger volume of fluid is pumped into the cylinders for erection and out of the cylinders when erection is no longer needed. What is the Surgery Like? Penile implants are usually placed under anesthesia, during a 1-hour surgery. Usually 1 small surgical cut is made either above the penis where it joins the abdomen or under the penis where it joins the scrotum. No tissue is removed, blood loss is small and blood transfusion is almost never needed. A patient will usually spend 1 night in the hospital for observation. Most men have pain after the surgery for about 4 weeks. During this time, oral pain medicine is needed and you are not allowed to drive. If men limit their physical activity while pain is present, the pain usually ends sooner. Men can often be taught how to use the prosthesis for sex 1 month after surgery, but if there is still pain and soreness this may be delayed for another month. If there is an infection, or the implant fails to work, it will usually have to be removed. On rare occasions, the device can cause pain or reduced feeling. It is important to know that after an implant is placed, other non-surgical treatments will no longer work if that prosthesis is removed. Fortunately, most men with penile implants and their partners say that they're satisfied with the results. Penile Arterial Revascularization Young men (under 45) who have had injuries to the pelvis or penis are most likely to be helped by this treatment. This surgery fixes problems with blocked or injured blood vessels in the penis. It may help in rare cases. It is mostly considered for men with no known risk factors for hardened arteries.When an accident leaves a penile vessel too injured or blocked to carry blood, the surgeon may connect to a nearby artery to get around the site. This can clear a pathway so enough blood can be supplied to the penis to cause an erection. Venous Ligation Surgery This procedure binds leaky penile vessels that cause the penis to soften during an erection. Becauseproper firmness depends on blood flow through the arteries and relaxation of the spongy tissue in the penis, blocking off leaky veins makes sure there is enough blood trapped in the penis to create a good erection. Since long-term success rates are less than 5%, this technique is rarely a choice for correcting ED. Vascular surgeries are still thought of as experimental by some, and may not be covered by your health plan. Neither the penile arterial revascularization or venous ligation surgeries are recommended if you use tobacco or have: insulin-dependent high blood sugar widespread hardened arteries high blood serum cholesterol levels injured nerves diseased and/or wide-spread damaged blood vessels Your follow up appointment will be scheduled with one of the urology care team members. This may be one of our physician assistants or nurse practitioners. They are always in direct communication with your physician who remains responsible for your urologic care at [facility]. For Xray, CT test, and Ultrasound results, unless specifically noted, the results of these tests will be discussed at your next visit with your provider. Results will not be reviewed over the phone. If test results require immediate action we will contact you. You will likely see your results via your online chart prior to your provider seeing them and reviewing them. These will always be discussed at your follow up visit to explain them and answer any of your questions regarding the results. For medication refills you may need to be seen once a year. For your specific follow up please discuss with your provider. Thank you for continuing to trust us with your care. We are your partner. Our Urology team is always striving to improve your experience with us. You may randomly be selectedto receive a survey via email, text or phone. The survey is 9 questions long and takes less than oneminutes to complete. We would greatly appreciate your feedback. Thank you! Get Cost of Care Estimates - [phone] The health insurance marketplace has changed dramatically in the last few years. Our cost of care service will provide estimates over the phone for treatments or procedures billed through [facility]. To receive a cost estimate, simply call [phone] during regular business hours. If you have insurance coverage, you will need to verify your policy of coverage with your health planby calling the number located on the back of your insurance card and talking to member services. documented in this encounter Progress Notes Raj Castro MD - 04/09/2022 1:45 PM CDT Images from the original note were not included. Visit and Exam date: 04/09/2022 Assessment Encounter Diagnoses Name Primary? Organic erectile dysfunction Yes Neurogenic bladder Plan Neurogenic bladder Longstanding history of neurogenic bladder setting of spina bifida. Symptoms stable, continue to monitor for any acute changes in his urinary profile Erectile dysfunction I discussed the multifactorial etiology and management options for treatment of erectile dysfunctionwith Fly. Options for management of erectile dysfunction include no intervention, discontinuation of medications that can potentially impact erectile function unless indicated by his other providers . I also discussed behavioral modifications such as maintaining an active lifestyle, having a healthy diet, avoiding tobacco use, to mitigate worsening of erectile dysfunction. First-line medical options include phosphodiesterase type V inhibitors. Also discussed that working with a sexual health behavioral therapist can be effective in cases where there is associated psychosomatic issues impacting erectile dysfunction. Second line therapies include use of intraurethral alprostadil and intracavernosal injections. Surgical management options include placement of a penile prosthesis, with both inflatable and rigid devices being available. Adjuvant devices also including the use of vacuum devices. We also discussed that erectile dysfunction can be a marker of cardiovascular health so I do recommendcontinued close follow-up with primary care team to optimize any underlying comorbidities that can increase the risk of a cardiovascular event. After our discussion Fly and I discussed proceeding with the following plan: Recommend testosterone assessment along hemoglobin A1c and lipid panel to assess any potential endocrinopathy/cardiovascular risk factors for erectile dysfunction. We did discuss the link between spina bifida and erectile dysfunction with regards to the existing literature. Have recommended penile Doppler ultrasound at follow-up to assess for any evidence of vasculogenic erectile dysfunction. If workup is normal, would benefit from sexual behavior health evaluation to further explore potential psychosomatic factors that could contribute to erectile dysfunction. Please see the After Visit Summary for counseling, advice, and precautions that I gave the patient during today's visit. The clinical visit today with the patient was documented using dictation software. 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 old male seen in clinic today Fly has a history of the following: Neurogenic bladder in the setting of history of spina bifida Please see prior urologic notes Workup/treatments/issues in the interim since last appointment: Urinary symptoms stable. Presents today due to concerns with regards to erectile dysfunction. Endorses issues with initiating and maintaining erection for intimacy. Difficulty maintaining erection with self-stimulation. Denies any issues with pain with erection or penile curvature. Currently not in an intimate relationship, but has concerns about his erectile issues and wishes to see if they can be addressed prior to development of future intimate relationships Fly notes the following: Hematuria in the interim?: No Urinary retention in the interim? No Urinary tract infection in the interim?: No Changes in urinary habits?: No Patient has other no new genitourinary complaints today. Denies fevers, chills, chest pain, shortness of breath Family history and social history were reviewed and are current in Epic Allergies Allergen Reactions Latex Other, see comments Precaution Pollen Extract Breathing Difficulty Nasal congestion Adhesive Rash Molds & Smuts Other, see comments Joy mold- Respiratory Distress Other Swelling Spider Venom: Severe local swelling No past medical history on file. Objective There were no vitals taken for this visit. Pleasant and engaging. No apparent distress. Creatinine Date Value 09/10/2021 0.97 mg/dL 05/06/2021 0.89 mg/dL 09/17/2020 0.82 mg/dL 04/21/2018 0.93 mg/dl Raj Castro MD documented in this encounter Plan of Treatment Upcoming Encounters Date Type Specialty Care Team Description 06/12/2022 Appointment Urology Raj Castro MD [address], [place] [address] (Wo rk) 09/28/2022 Telemedicine Psychiatry Humera Bush MD [address] [place], [place] [address] (Wo rk) documented as of this encounter Results (ABNORMAL) Lipid Panel and [...] CENTRAL LAB CDT Hours Fasting 0 04/17/2022 [facility] 11:09 AM CDT Specimen Anatomical Collection Method / Collection Time Recei rufus Time (Source) Location / Volume Laterality Blood Venipuncture / 04/17/2022 8:34 04/17/2022 8:38 Unknown AM CDT AM CDT Raj Castro MD LAB_1 Performing Organization Address City/[facility] Phon e Number [facility] [address] [address] [facility] [address] [place] [address] Hgb A1C (04/17/2022 8:34 AM CDT) [facility] Method Time Signature Hemoglobin A1C 4.8 <=5.6 % 04/17/2022 [facility] 11:44 AM CDT CENTRAL LAB Specimen Anatomical Collection Method / Collection Time Recei rufus Time (Source) Location / Volume Laterality Blood Venipuncture / 04/17/2022 8:34 04/17/2022 8:38 Unknown AM CDT AM CDT Raj Castro MD LAB_1 Performing Organization Address City/[facility] Phon e Number [facility] [facility] [address] [address] Testosterone,Adult Males or Individuals on Testosterone Hormone Therapy (04/17/2022 8:34 AM CDT) Analysis Performed At Patho logist Time Signature Testosterone 389 200 - 745 04/17/2022 [facility] ng/dL 11:40 AM CDT [facility] Specimen Anatomical Collection Method / Collection Time Recei rufus Time (Source) Location / Volume Laterality Blood Venipuncture / 04/17/2022 8:34 04/17/2022 8:38 Unknown AM CDT AM CDT Raj Castro MD LAB_1 Performing Organization Address City/State/ZIP Code Phon e Number [facility] [address] [phone] documented in this encounter Visit Diagnoses Diagnosis Organic erectile dysfunction - Primary Impotence of organic origin Neurogenic bladder Neurogenic bladder, NOS documented in this encounter Care Teams Demolitionist Relationship Specialty Start Date End Date Rob Tillman MD PCP - General Physical Medicine and 08/01/[address] [place] [address] [place] [address] documented as of this encounter
--- OUTSIDE RECORDS SUMMARY | 2022-05-27 10:12 | XMS_ITS | Encounter Summary ---
:1995 Author Organization [employer] Address [address], [place] [address] Care Team Providers Name Role Phone Rob Tillman MD Primary Care Provider Reason for Visit Reason Onset Date Comments Refill 03/31/2022 methylphenidate Reeve 03/31/2022 Encounter Details Date Type Department Care Team Description 03/31/2022 Refill [facility] Psychiat ry Humera Bush, Refill [address] Fernanda Ellington MD (methylphenidate); [address] [place], [place] [id number] [phone] Social History Tobacco Use Types Packs/Day Years Used Date Smoking Tobacco: Never Smokeless Tobacco: Never Alcohol Use Standard Drinks/Week Comments Yes 0 (1 standard drink = 0.6 oz pure alcoho l) occasional Sex Assigned at Date Recorded 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 documented in this encounter Plan of Treatment Upcoming Encounters Date Type Specialty Care Team Description 06/12/2022 Appointment Urology Raj Castro MD [address] [place], [place] [address] (Wo rk) 09/28/2022 Telemedicine Psychiatry Humera Bush MD [address] [place], [place] [address] (Wo rk) documented as of this encounter Visit Diagnoses Not on filedocumented in this encounter Care Teams News Intern Relationship Specialty Start Date End Date Rob Tillman MD PCP - General Physical Medicine and 08/01/19 [address] [facility] [place] [address] documented as of this encounter
--- OUTSIDE RECORDS SUMMARY | 2022-05-27 10:13 | XMS_ITS | Encounter Summary ---
:1995 Author Organization [employer] Address [address], [place] [address] Care Team Providers Name Role Phone Rob Tillman MD Primary Care Provider Encounter Details Date Type Department Care Team Description 09/10/2021 Lab Visit [facility] Spina bifida without [address] [facility] hydrocephalus, unspecified [place], [place] [address] spinal region (HRC) [phone] Social History Tobacco Use Types Packs/Day Years Used Date Smoking Tobacco: Never Smokeless Tobacco: Never Alcohol Use Standard Drinks/Week Comments Yes 0 (1 standard drink = 0.6 oz pure alcoho l) occasional Sex Assigned at Date Recorded 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 BASIC METABOLIC Routine 09/10/2021 4:30 PM Spina bifida withou t Results for this PANEL CDT hydrocephalus, procedure are in unspecified spinal the resul ts region (HRC) section. COMPLETE BLOOD Routine 09/10/2021 4:30 PM Spina bifida without Results for this COUNT-NO DIFF CDT hydrocephalus, procedure ar e in unspecified spinal the resul ts region (HRC) section. documented in this encounter Results (ABNORMAL) Basic Metabolic Panel (09/10/2021 4:30 PM CDT) Analysis Performed At [facility] logist Time Signature Sodium 141 136 - 145 09/10/2021 [facility] mmol/L 9:17 PM CDT [facility] Potassium 4.0 3.5 - 5.1 09/10/2021 [facility] mmol/L 9:17 PM CDT [facility] Chloride 103 98 - 109 09/10/2021 [facility] mmol/L 9:17 PM CDT [facility] CO2 29 20 - 29 09/10/2021 [facility] mmol/L 9:17 PM CDT [facility] Anion Gap 9 7 - 16 09/10/2021 [facility] mmol/L 9:17 PM CDT [facility] Calcium 10.7 (H) 8.4 - 10.4 09/10/2021 [facility] mg/dL 9:17 PM CDT [facility] Comment: Low serum albumin may artificia lly lower total calcium, without impacting ionized calcium concentrations. If patie nt has or is at risk for hypoalbuminemia, consider ionized serum calcium to more a ccurately assess calcium status. BUN 12 7 - 26 mg/dL 09/10/2021 9:17 PM [facility] CDT LAB Creatinine 0.97 0.73 - 1.18 09/10/2021 9:17 PM [facility] mg/dL CDT LAB GFR, Estimated >60 >60 09/10/2021 9:17 PM [facility] mL/min/1.73m2 CDT LAB Glucose 92 70 - 100 mg/dL 09/10/2021 9:17 PM [facility]EN[facility] CDT LAB Comment: The given reference range is fo r the fasting state. Non-fasting reference range for glucose is 70 - 180 mg/dL. Hours Fasting 3 09/10/2021 9:17 PM CDT [facility] Specimen Anatomical Collection Method / Collection Time Recei rufus Time (Source) Location / Volume Laterality Blood Venipuncture / 09/10/2021 4:30 09/10/2021 4:30 Unknown PM CDT PM CDT Rob Tillman MD LAB_1 Performing Organization Address City/[facility] [address]/[facility] Phon e Number [facility] [address] [address] [facility] [address] [place] [phone] (ABNORMAL) Complete Blood Count-No Diff (09/10/2021 4:30 PM CDT) P athologist Signature WBC 5.5 3.5 - 10.5 09/10/2021 [facility] x10(9)/L 4:32 PM CDT LAB RBC 4.85 4.32 - 5.72 09/10/2021 [facility] x10(12)/L 4:32 PM CDT LAB Hemoglobin 15.3 13.5 - 17.5 09/10/2021 [facility] g/dL 4:32 PM CDT LAB HCT 42.9 38.8 - 50.0 09/10/2021 [facility] % 4:32 PM CDT LAB MCV 88.5 80.0 - 09/10/2021 [facility] 100.0 fL 4:32 PM CDT LAB MCH 31.5 27.6 - 33.3 09/10/2021 [facility] pg 4:32 PM CDT LAB MCHC 35.7 (H) 31.5 - 35.2 09/10/2021 [facility] g/dL 4:32 PM CDT LAB RDW 11.7 (L) 11.9 - 15.5 09/10/2021 [facility] % 4:32 PM CDT LAB Platelets 238 150 - 450 09/10/2021 [facility] x10(9)/L 4:32 PM CDT LAB Specimen Anatomical Collection Method / Collection Time Recei rufus Time (Source) Location / Volume Laterality Blood Venipuncture / 09/10/2021 4:30 09/10/2021 4:30 Unknown PM CDT PM CDT Rob Tillman MD LAB_1 Performing Organization Address City/State/ZIP Code Phon e Number [facility] [address] [place] [phone] TSH (09/10/2021 4:30 PM CDT) [facility] gist Method Time Signature TSH, Sensitive 2.17 0.30 - 09/10/2021 [facility] 4.50 9:24 PM CDT [facility] uIU/mL Specimen Anatomical Collection Method / Collection Time Recei rufus Time (Source) Location / Volume Laterality Blood Venipuncture / 09/10/2021 4:30 09/10/2021 4:30 Unknown PM CDT PM CDT Rob Tillman MD LAB_1 Performing Organization Address City/[facility] [address]/ZIP Code Phon e Number [facility] [address] [address] documented in this encounter Visit Diagnoses Diagnosis Spina bifida without hydrocephalus, unsp ecified spinal region (HRC) documented in this encounter Care Teams Chain Offbearer Relationship Specialty Start Date End Date Rob Tillman MD PCP - General Physical Medicine and 08/01/[address] [facility] [facility] [place], [place] [phone] documented as of this encounter
--- OUTSIDE RECORDS SUMMARY | 2022-05-27 10:13 | XMS_ITS | Encounter Summary ---
:1995 Author Organization [employer] Address [address] [place] [address] Care Team Providers Name Role Phone Rob Tillman MD Primary Care Provider Encounter Details Date Type Department Care Team Description 11/10/2021 Telemedicine [facility] Humera Bush, [facility] inattentive type (Primary Dx); Psychiatry Nonverbal learning disorder 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 Patient did not connect, a phone call was placed. Patient answered the phone and said he had the wrong time for the appointment and wouldnot be able to make it. Visit will be marked is a no-show in the chart 2 and a letter will be sent Humera Bush MD 11/10/2021 3:14 PM documented in this encounter Plan of Treatment Upcoming Encounters Date Type Specialty Care Team Description 06/12/2022 Appointment Urology Raj Castro MD [address] [place], [place] [address] (Wo rk) 09/28/2022 Telemedicine Psychiatry Humera Bush MD [address] [place], [place] [address] (Wo rk) documented as of this encounter Visit Diagnoses Diagnosis ADHD (attention deficit hyperactivity di sorder), inattentive type (HRC) - Primary Attention deficit disorder with hyperact ivity Nonverbal learning disorder documented in this encounter Care Teams Site Foreman Relationship Specialty Start Date End Date Rob Tillman MD PCP - General Physical Medicine and 08/01/19 [address] [facility] [address] documented as of this encounter
--- OUTSIDE RECORDS SUMMARY | 2022-05-27 10:13 | XMS_ITS | Encounter Summary ---
:1995 Author Organization [employer] Address [address] [place] [address] Care Team Providers Name Role Phone Rob Tillman MD Primary Care Provider Reason for Visit Reason Comments Rachelle Prior Authorization For Medication Wellbutrin XL 300mg Encounter Details Date Type Department Care Team Description 10/14/[address] [facility] Humera Bush Reeve; Tessy baca Psychiatry Authorization For 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 Estefania Qureshi RN - 10/14/2021 11:01 AM CDT Fax received for PA renewal for Wellbutrin XL 300mg. Electronic PA was initiated by RN now. documented in this encounter Plan of Treatment Upcoming Encounters Date Type Specialty Care Team Description 06/12/2022 Appointment Urology Raj Castro MD [address] [place], [place] [address] (Wo rk) 09/28/2022 Telemedicine Psychiatry Humera Bush MD [address] [place], [place] [address] (Wo rk) documented as of this encounter Visit Diagnoses Not on filedocumented in this encounter Care Teams Hair Boiler Operator Relationship Specialty Start Date End Date Rob Tillman MD PCP - General Physical Medicine and 08/01/19 [address] [facility] [place] [address] documented as of this encounter
--- OUTSIDE RECORDS SUMMARY | 2022-05-27 10:13 | XMS_ITS | Encounter Summary ---
:1995 Author Organization [facility] Address [address] [place] [address] Care Team Providers Name Role Phone Rob Tillman MD Primary Care Provider Reason for Visit Reason Comments QUESTIONS, GENERAL Encounter Details Date Type Department Care Team Description 12/18/2021 Telephone [facility] Neuroscience Jian Tillman, QUESTIONS, GENERAL Center Physical Medi cine 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 Denies drainage, no redness or fever. States he has minimal feeling in that foot. States his brace is not rubbing against the area. He has put neosporin on and covered with bandaid but thinks you should see it. Please advise Makenzie Elias RN 12/25/2021, 12:58 PM Cesar Combs - 12/25/2021 12:32 PM CDT Pt states that callous ripped open, he was unaware it had ripped open, currenty has a band aid on with neosporin on it. He think Dr. Tillman should look at it Cesar Combs 12/25/2021, 12:35 PM Makenzie Elias RN - 12/18/2021 3:07 PM CDT Pt sates he went in and had his brace adjusted so that it quit rubbing on the callous. Instructed to keep rubbing on callous. Apply lotion as needed and monitor. Makenzie Elias RN 12/18/2021, 3:10 PM Parker Elias - 12/18/2021 1:47 PM CDT Patient called stating he noticed a callus on his right foot and is requesting a call back from RN to discuss this as he is currently wearing a brace that is rubbing on it Parker Elias 12/18/2021, 1:48 PM documented in this encounter Plan of Treatment Upcoming Encounters Date Type Specialty Care Team Description 06/12/2022 Appointment Urology Raj Castro MD [address] [facility] [place] [place] [address] (Wo rk) 09/28/2022 Telemedicine Psychiatry Humera Bush MD [address] [place], [place] [address] (Wo rk) documented as of this encounter Visit Diagnoses Not on filedocumented in this encounter Care Teams Senior Office Assistant Relationship Specialty Start Date End Date Rob Tillman MD PCP - General Physical Medicine and 08/01/[address] [place], [place] [address] [place] [place] [address] documented as of this encounter
--- OUTSIDE RECORDS SUMMARY | 2022-05-27 10:13 | XMS_ITS | Encounter Summary ---
:1995 Author Organization [employer] Address [address] [place] [address] Care Team Providers Name Role Phone Rob Tillman MD Primary Care Provider Encounter Details Date Type Department Care Team Description 03/27/2022 Telemedicine [facility] Humera Bush, [facility] inattentive type (HRC) (Primary Dx); Psychiatry Nonverbal learning disorder; 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 Reviewed potential benefits, risks and confidentiality of telehealth visits. Confirmed patients' current location and contact information. Developed a safety plan to be used in the event of an emergency or safety concerns. Made contingency plan in the event of technical problems. Explained that the appropriateness of telehealth visits is determined by the provider and that patient may need to be seen in clinic in the future. This visit was conducted via video. Location of clinician: clinic Location of patient: home Current Outpatient Medications Medication Sig Note Dispense Refill ARIPiprazole (ABILIFY) 5 MG tablet Take 1 Tablet (5 mg) by mouth daily. 90 Tablet 1 buPROPion (WELLBUTRIN XL) 300 MG 24 hour release tablet Take 1 Tablet (300 mg) by mouth daily. 90 Tablet 1 Carnitine 250 MG 500 mg Codeine daily. cetirizine (ZYRTEC) 10 MG tablet Take 1 Tablet by mouth. 06/30/2018: PRN cholecalciferol (VITAMIN D3) 1000 units tablet Take 5,000 Units by mouth daily. methylphenidate (CONCERTA) 54 MG controlled release tablet Take 1 Tablet (54 mg) by mouth daily. 90Tablet 0 Multiple Vitamins-Minerals (CENTRUM ADULTS OR) daily. sertraline (ZOLOFT) 100 MG tablet Take 1 Tablet (100 mg) by mouth daily. 90 Tablet 1 No current facility-administered medications for this visit. Chief Complaint: Fly is seen on his own for routine follow-up Current History: Fly is a 26-year-old spina bifida who also has nonverbal learning disorder, ADHD, and anxiety. He currently resides on his own in an apartment with support services that come in. The right now he is working on completing an online computer program in artificial [employer]. He currently is not working at all. He tells me today that he has enough financially to continue to live independently in his apartment until he is done with his computer course but that he needs to ???get ajob. ?? He has an ILS worker, vocational rehab services. Fly tells me that his mood has been ???really good. ?? He brings up a concern that he has been having ???brain zaps. ?? These have only started in the last month and a generally occur between 3 and 5:00 a.m. in the afternoon. He has not made any lifestyle changes. We have not made any psychotropic changes for quite some time. Medical Review of Systems: There were no vitals filed for this visit. no side effects and no issues with pain. Has complaints about brain zaps Labs:No indication for labs at this time. AIMS/DISCUS:N/A Chemical Use: none Social History Living Situation: own apartment, living independently Activities: has few friends Education: online computer course Therapy: Supportive Other Services: ILS worker Ping Mental Status Exam: Fly presents as typical for him which is smiling, bright in a superficial type way. He smiles no matter what we talk about. Motor exam is consistent with spina bifida, speech issuperficial, overly optimistic and lacking detail. He tells me his mood is ???really good. ?? Content of the interview is about his computer course his plans to get a job. His thought process is quiteconcrete, he fails to see the larger picture of his situation. Cognitively general knowledge is adequate, he is reasonably focused, he has poor abstract skills. Insight and judgment are immature for his age. Assessment: Fly is overall stable in his mood is good. I explained that because we have not madeany medication changes at really doubt that his ???brain zaps, ???are related to the psychotropic medications. He says they last only a 2nd and do not cause any difficulty although they are bothersome.I suggested that he may want to check with his neurologist/neurosurgeon regarding these issues but it does not appear to be associated with his psychotropic medications. Most of our visit today was spent talking about psychosocial issues. It sounds as if Fly has enough money to pay his rent for a couple more months but did not after that. His current plan is to complete his computer course of the end of March and ankle look for a job. ?? He will not be able to afford rent after the end of April. I suggested it might be prudent to go out and try to find a job now that can bring in some money and he can look for a computer related job which is done with his course and continue to work part-time. He seemed very willing to do that but has limited capacity to really follow through. I have asked him to contact his ILS worker and is vocational rehab person as well as talk to his supportive therapist to hold him accountable to follow through. From a mental health standpoint if things continue to be stable he can return in 6 months. Risk Assessment: The patient is at low risk for aggression. Diagnosis: ADHD, nonverbal learning disorder, anxiety disorder not otherwise specified, spina bifida Plan:Continue current meds with no changes Discussed side effects and efficacy of all medications Continue with current psychotherapy Discussed healthy eating and exercise Discussed transition to adulthood issues Reach out to both ILS worker and vocational rehab support person regarding employment opportunities Follow-up with neurology/neurosurgeon regarding ???brain zaps. ?? Appointment in: 6 months, or earlier if needed Visit Summary: complex evaluation and medication management. This note created using speech-recognition software and may contain unintended word substitutions. documented in this encounter Plan of Treatment Upcoming Encounters Date Type Specialty Care Team Description 06/12/2022 Appointment Urology Raj Castro MD [address] [place], [place] [address] (Wo rk) 09/28/2022 Telemedicine Psychiatry Humera Bush MD [address] [place], [place] [address] (Wo rk) documented as of this encounter Visit Diagnoses Diagnosis ADHD (attention deficit hyperactivity di sorder), inattentive type (HRC) - Primary Attention deficit disorder with hyperact ivity Nonverbal learning disorder Major depressive disorder, single episod e, severe (HRC) Major depressive disorder, single episod e, severe, without mention of psychotic behavior Spina bifida, unspecified hydrocephalus presence, unspecified spinal region (HRC) Anxiety (HRC) Anxiety state, unspecified documented in this encounter Care Teams Customer Experience Manager Relationship Specialty Start Date End Date Rob Tillman MD PCP - General Physical Medicine and 08/01/19 [address] [facility] [place] [address] documented as of this encounter
--- OUTSIDE RECORDS SUMMARY | 2022-05-27 10:13 | XMS_ITS | Encounter Summary ---
:1995 Author Organization [employer] Address [address] [place] [address] Care Team Providers Name Role Phone Rob Tillman MD Primary Care Provider Encounter Details Date Type Department Care Team Description 12/11/2021 Telemedicine [facility] Humera Bush, [facility] inattentive type (Primary Dx); Psychiatry Nonverbal learning disorder; 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 ARIPiprazole (ABILIFY) 5 MG tablet Take 1 Tablet by mouth daily. 90 Tablet 1 ??? buPROPion (WELLBUTRIN XL) 300 MG 24 hour release tablet TAKE 1 TABLET BY MOUTH EVERY DAY 90 Tablet 1 ??? Carnitine 250 MG 500 mg Codeine daily. ??? cetirizine (ZYRTEC) 10 MG tablet Take 1 Tablet by mouth. 06/30/2018: PRN ??? cholecalciferol (VITAMIN D3) 1000 units tablet Take 5,000 Units by mouth daily. ??? methylphenidate (CONCERTA) 54 MG controlled release tablet Take 1 Tablet by mouth daily. 90 Tablet 0 ??? Multiple Vitamins-Minerals (CENTRUM ADULTS OR) daily. ??? sertraline (ZOLOFT) 100 MG tablet Take 1 Tablet (100 mg) by mouth daily. 30 Tablet 0 No current facility-administered medications for this visit. Chief Complaint: Fly is seen on his own and feels like things are going well Current History: Fly is a 26-year-old with ADHD, nonverbal learning disorder, anxiety, and spinabifida. He lives in his own apartment. I have not seen him for 6 months at which time he was workingpart-time at [employer]. He tells me that he ended that job in order to take another job that he felt was more related to his interest in computers. Unfortunately that involved an hour and a half commute each way so he did not keep that job for more than a few weeks. He now has been unemployed since then. He tells me that he spends all day playing video games and really has no other interactions. He has not followed up with his vocational rehab worker. He lost his ILS worker because the organizationproviding the services could no longer find staff and he did not follow up with anyone else. He is continuing to see his individual therapist. As we talk Fly does have some insight and indicates that he knows he is ???self sabotage thing, ???his progress by ???playing video games all day.?? Unfortunately, he really struggles to come up with a plan to change his behavior. Tells me that he only has 3000 dollars in savings and with his current rent unless he gets a job in the next few months he will not be able to pay his rent and lose his apartment. He shares that parents are not willing to let him move back home. Medical Review of Systems: There were no vitals filed for this visit. no side effects and no issues with pain Labs:No indication for labs at this time. AIMS/DISCUS:N/A Chemical Use: none Social History Living Situation: own apartment, living independently Activities: has few friends Education: N/A Therapy: Supportive Other Services: [facility] , vocational rehab Mental Status Exam: Fly is pleasant and interactive but superficial which is typical for him. Tells me his mood is very good but he is ???apathetic,?? because ???I play video games all day.?? Speech is a bit odd and that he is somewhat concrete and overly precise with his language. Motor exam is unremarkable. Content of the interview is about his employment, activities. His process is very concrete. While he has some insight into his difficulties he has very poor problem-solving skills. Insight and judgment overall have significant limitations Assessment: Fly is generally in a reasonably good mood and has some understanding about his situation. Ultimately I do not think independent living is going to work well for him because he sociallyisolated and ends up spending all his time on video games. We talked in detail about getting more supports in place. I asked him to call [facility] to get a mental health hospice case manager in place and then to ask for an [facility] worker. I suggested he recontact is vocational rehab counselor to work on employ min issues. He was able to verbally acknowledge that he should try to cut down on video games. Kamilla talked about social organizations within the community that he may be able to connect with. I have asked him to schedule a follow-up with me in 1 month to see if he is making progress on any of those goals. No pharmacologic changes are indicated today Risk Assessment: The patient is at low risk for self-injurious behavior and suicidal thinking. 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 buPROPion (WELLBUTRIN XL) 300 MG 24 hour release tablet Take 1 Tablet (300 mg) by mouth daily. methylphenidate (CONCERTA) 54 MG controlled release tablet Take 1 Tablet (54 mg) by mouth daily. sertraline (ZOLOFT) 100 MG tablet Take 1 Tablet (100 mg) by mouth daily. Discussed side effects and efficacy of all medications Discussed healthy eating and exercise Discussed issues related to excessive electronics use Discussed transition to adulthood issues Increase county services and social connections, resources were discussed Appointment in: 1 month Visit Summary: complex evaluation and medication management. This note created using speech-recognition software and may contain unintended word substitutions. documented in this encounter Plan of Treatment Upcoming Encounters Date Type Specialty Care Team Description 06/12/2022 Appointment Urology Raj Castro MD [address] [place], [place] [address] (Jeannie osei) 09/28/2022 Telemedicine Psychiatry Humera Bush MD [address] [place], [place] [address] (Jeannie osei) documented as of this encounter Visit Diagnoses [...] unspecified documented in this encounter Care Teams Crown Pouncer Relationship Specialty Start Date End Date Rob Tillman MD PCP - General Physical Medicine and 08/01/19 [address] [place] [address] documented as of this encounter
--- OUTSIDE RECORDS SUMMARY | 2022-05-27 10:13 | XMS_ITS | Encounter Summary ---
:1995 Author Organization [employer] Address [address] [place] [address] Care Team Providers Name Role Phone Rob Tillman MD Primary Care Provider Reason for Visit Reason Comments Reeve FATIGUE Encounter Details Date Type Department Care Team Description 11/06/2021 Telephone [facility] Humera Guerrero MD Reeve; FATIGUE 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 Humera Bush MD - 11/06/2021 2:10 PM CDT Please have him reschedule ALAN so the appt can be opened for someone else Humera Bush MD 11/06/2021 2:10 PM Estefania Qureshi RN - 11/06/2021 1:58 PM CDT Patient says that he's been dealing with severe fatigue for several months. He's also been having electrical zaps in my brain for a couple of weeks. He says he's been consistent with taking his meds. Overall sleep is good, but he says it doesn't feel like I get enough. He goes to bed at 7 p.m., toget up at 4:[address] a.m. to get ready and drive to work. He notes that he is having 14 hour work days, when you include commuting time. He is quitting this job as of November 12, and will look for something else. He's missed a day of work occasionally (like today), and other times, he's gone home early because of the fatigue. He did not have the appt with Dr. Bush on November 10 at 3 p.m. written down. He doesn't get home from work until 4:30. He will have to reschedule, unless Dr. Bush would still want to see him thatday (at 4:30). RN said that would have to be OKed by , so will forward message to her for review and recommendations. Anabel Funk - 11/06/2021 10:45 AM CDT Medications - Side Effects / Symptoms Describe a brief summary of your symptoms: Fly states he's been having severe fatigue For the past several months - sores the past 3 m or so. So bad that he's left work early or stayed home a lot. Also having electrical shock type pains in the middle of his head. If a prescription is needed, where can we send it? {[facility] Is it okay to leave a detailed message on your voicemail? Yes No need to call today Is there anything else I can help you with today? no documented in this encounter Plan of Treatment Upcoming Encounters Date Type Specialty Care Team Description 06/12/2022 Appointment Urology Raj Castro MD [address] [place], [place] [address] (Wo rk) 09/28/2022 Telemedicine Psychiatry Humera Bush MD [address] [place], [place] [address] (Wo rk) documented as of this encounter Visit Diagnoses Not on filedocumented in this encounter Care Teams Personnel Recruiter Relationship Specialty Start Date End Date Rob Tillman MD PCP - General Physical Medicine and 08/01/19 [address] [facility] [place] [address] documented as of this encounter
--- OUTSIDE RECORDS SUMMARY | 2022-05-27 10:13 | XMS_ITS | Encounter Summary ---
:1995 Author Organization [employer] Address [address] [place] [address] Care Team Providers Name Role Phone Rob Tillman MD Primary Care Provider Encounter Details Date Type Department Care Team Description 09/29/2021 Telephone [facility]ty [facility] [address] Raj Castro MD Urology Clinic [address] 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 Angeles Almeida RN - 09/29/2021 1:18 PM CDT Please let patient's mother know letter was sent to patient's OPS. If she requires letter to state other items, please have her send a message citing such specifics. Thanks. Angeles Castro RN 09/29/2021, 1:19 PM Mila Rock - 09/29/2021 12:04 PM CDT Mother is requesting a letter for medical necessity. They are requesting his employer stating supporting why he uses the bathroom more and also more frequently. Mila Rock 09/29/2021, 12:05 PM documented in this encounter Plan of Treatment Upcoming Encounters Date Type Specialty Care Team Description 06/12/2022 Appointment Urology Raj Castro MD [address] [place], [place] [address] (Wo rk) 09/28/2022 Telemedicine Psychiatry Humera Bush MD [address] [place], [place] [address] (Wo rk) documented as of this encounter Visit Diagnoses Not on filedocumented in this encounter Care Teams Truss Maker Relationship Specialty Start Date End Date Rob Tillman MD PCP - General Physical Medicine and 08/01/19 [address] [facility] [place] [place] [address] documented as of this encounter
--- OUTSIDE RECORDS SUMMARY | 2022-05-27 10:13 | XMS_ITS | Encounter Summary ---
:1995 Author Organization [employer] Address [address] [place] [address] Care Team Providers Name Role Phone Rob Tillman MD Primary Care Provider Reason for Visit Reason Comments Refill Encounter Details Date Type Department Care Team Description 10/14/2021 Refill [facility] Psychiat Humera Guerrero MD Refill 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 Refill was not needed per below. Karuna Church - 10/16/2021 12:13 PM CDT Patient made an appt on 11.10.21. Karuna Church - 10/14/2021 11:13 AM CDT LM x1 for return call (schedule appt) Estefania Qureshi RN - 10/14/2021 11:02 AM CDT No PA needed; drug is covered by current plan. PA message is also close. Estefania Qureshi RN - 10/14/2021 10:01 AM CDT Last refill for the zoloft was done on 10/09/21, so no refill is needed today. Patient was last seen by on 02/26/21 and was to return in 6 months. Will route to the clinic assistants to contact patient (or mom) for scheduling documented in this encounter Plan of Treatment Upcoming Encounters Date Type Specialty Care Team Description 06/12/2022 Appointment Urology Raj Castro MD [address] [place], [place] [address] (Wo rk) 09/28/2022 Telemedicine Psychiatry Humera Bush MD [address] [place], [place] [address] (Wo rk) documented as of this encounter Visit Diagnoses Not on filedocumented in this encounter Care Teams Senior Interactive Developer Relationship Specialty Start Date End Date Rob Tillman MD PCP - General Physical Medicine and 08/01/19 [address] [facility] [place] [address] documented as of this encounter
--- OUTSIDE RECORDS SUMMARY | 2022-05-27 10:13 | XMS_ITS | Encounter Summary ---
:1995 Author Organization [employer] Address [address] [place] [address] Care Team Providers Name Role Phone Rob Tillman MD Primary Care Provider Reason for Visit Reason Comments BACK PAIN Encounter Details Date Type Department Care Team Description 01/22/2022 Telephone [facility] Neuroscience Matthew Chau MD BACK PAIN Center Neurosurgery/Ortho [address] [place] [address] 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 Patient reports right shoulder and back pain. Also, patient reports pain in his chest and to the right of the sternum when sneezing. This started 2 weeks ago and happened from no where. Patient stated that neck pain resolved as of now. He started school and has been more tired. Spoke with Dr. Hansen. Patient will need to be evaluated in the office with primary doctor as there is no updated imaging to review. Patient was advised to call back once seen by PCP. Patient is ok to be seen by BELEN for further work up if needed. Patient agreed with the plan. Lakia Jo RN 01/23/22 10:23 AM Alessia Gil - 01/22/2022 8:41 AM CDT Patient calling to speak with Dr Tyrone carbajal regarding some consistent pain he is having in hisback and neck . Patient would like to speak with a nurse to discuss Alessia Gil 01/22/2022, 8:42 AM documented in this encounter Plan of Treatment Upcoming Encounters Date Type Specialty Care Team Description 06/12/2022 Appointment Urology Raj Castro MD [address] [place], [place] [address] (Wo rk) 09/28/2022 Telemedicine Psychiatry Humera Bush MD [address] [place], [place] [address] (Wo rk) documented as of this encounter Visit Diagnoses Not on filedocumented in this encounter Care Teams Supervisor Pairing And Inspecting Relationship Specialty Start Date End Date Rob Tillman MD PCP - General Physical Medicine and 08/01/19 [address] [facility] Rehabilitation [place], [place] [id number] documented as of this encounter
--- OUTSIDE RECORDS SUMMARY | 2022-05-27 10:13 | XMS_ITS | Encounter Summary ---
:1995 Author Organization [employer] Address [address] [place] [address] Care Team Providers Name Role Phone Rob Tillman MD Primary Care Provider Reason for Visit Reason Onset Date Comments Refill 12/11/2021 Reeve 12/11/2021 Encounter Details Date Type Department Care Team Description 12/11/2021 Refill [facility] Humera Bush MD Refill; Reeve 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 documented in this encounter Plan of Treatment Upcoming Encounters Date Type Specialty Care Team Description 06/12/2022 Appointment Urology Raj Castro MD [address] [place] [address] [place] [address] (Wo rk) 09/28/2022 Telemedicine Psychiatry Humera Bush MD [address] [place], [place] [address] (Wo rk) documented as of this encounter Visit Diagnoses Not on filedocumented in this encounter Care Teams Route Process Administrator Relationship Specialty Start Date End Date Rob Tillman MD PCP - General Physical Medicine and 08/01/19 [address] [facility] [place] [address] documented as of this encounter
--- OUTSIDE RECORDS SUMMARY | 2022-05-27 10:13 | XMS_ITS | Encounter Summary ---
:1995 Author Organization [facility] Address [address], [place] [address] Care Team Providers Name Role Phone Rob Tillman MD Primary Care Provider Reason for Visit Reason Comments ERRONEOUS ENTRY Encounter Details Date Type Department Care Team Description 12/25/2021 Telephone [facility] Neuroscience Jian Tillman, ERRONEOUS ENTRY Center Physical Medi cine [address] [facility]. 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 as of this encounter Plan of Treatment Upcoming Encounters Date Type Specialty Care Team Description 06/12/2022 Appointment Urology Raj Castro MD [address] [place], [place] [address] (Wo rk) 09/28/2022 Telemedicine Psychiatry Humera Bush MD [address] [place], [place] [address] (Wo rk) documented as of this encounter Visit Diagnoses Not on filedocumented in this encounter Care Teams Marshmallow Runner Relationship Specialty Start Date End Date Rob Tillman MD PCP - General Physical Medicine and 08/01/19 [address] [facility] [place] [place] [address] documented as of this encounter
--- OUTSIDE RECORDS SUMMARY | 2022-05-27 10:13 | XMS_ITS | Encounter Summary ---
:1995 Author Organization [employer] Address [address] [place] [address] Care Team Providers Name Role Phone Rob Tillman MD Primary Care Provider Reason for Visit Reason Comments Rachelle Encounter Details Date Type Department Care Team Description 11/19/2021 Telephone [facility] Humera Bush MD Reeve 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 We have not received a refill request from the pharmacy, and patient was not able to request on the pharmacy mobile fermin. Karuna Church - 11/19/2021 2:36 PM CDT Medications - Side Effects / Symptoms Describe a brief summary of your symptoms: Patient states there is an electric shock sensation in his head. And patient also states he is having increased fatigue. Patient states he forgot to fill his sertraline when it was due and he feels he is having withdrawalside effects. Patient wants to talk to the nurse. (also please fill this medication karuna) [Lapel Padder Blindstitch: If the pt is calling after 3:30pm, was the caller reminded that their call may not be returned until the following day: No Share with caller: If we are not able to get back to you by the end of the day and your symptoms worsen, please contact the [facility] at [phone] OR at .] If a prescription is needed, where can we send it? No: [facility] [Lapel Padder Blindstitch: Please add the requested pharmacy to 'Meds & Orders' ] Is it okay to leave a detailed message on your voicemail? Yes Is there anything else I can help you with today? no documented in this encounter Plan of Treatment Upcoming Encounters Date Type Specialty Care Team Description 06/12/2022 Appointment Urology Raj Castro MD [address] [place], [place] [address] (Wo rk) 09/28/2022 Telemedicine Psychiatry Humera Bush MD [address] [place], [place] [address] (Wo rk) documented as of this encounter Visit Diagnoses Not on filedocumented in this encounter Care Teams Shrimp Header Relationship Specialty Start Date End Date Rob Tillman MD PCP - General Physical Medicine and 08/01/19 [address] [facility] Rehabilitation [place], [place] [id number] documented as of this encounter
--- OUTSIDE RECORDS SUMMARY | 2022-05-27 10:13 | XMS_ITS | Encounter Summary ---
:1995 Author Organization [facility] Address [address] [place] [address] Care Team Providers Name Role Phone Rob Tillman MD Primary Care Provider Reason for Visit Reason Comments Refill Encounter Details Date Type Department Care Team Description 10/02/[address] [facility] Psychiat Humera Guerrero MD Refill 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 Stacy Leach - 10/09/2021 8:54 AM CDT 2 attempts made Stacy Leach - 10/07/2021 10:20 AM CDT Lm tcb x 2 Stacy Leach - 10/03/2021 2:23 PM CDT Lm tcb x1 Norma Ramos, MARC - 10/03/2021 8:16 AM CDT No follow up appointment scheduled. Last seen 03/07/21 and was to return in 6 months. Will route to clinical research spec to attempt to schedule patient. Please route back to nursing once scheduled for appointment. Thanks! documented in this encounter Plan of Treatment Upcoming Encounters Date Type Specialty Care Team Description 06/12/2022 Appointment Urology Raj Castro MD [address] [place], [place] [address] (Wo rk) 09/28/2022 Telemedicine Psychiatry Humera Bush MD [address] [place], [place] [address] (Wo rk) documented as of this encounter Visit Diagnoses Not on filedocumented in this encounter Care Teams Skip Locator Relationship Specialty Start Date End Date Rob Tillman MD PCP - General Physical Medicine and 08/01/19 [address] [facility] [place] [address] documented as of this encounter
--- OUTSIDE RECORDS SUMMARY | 2022-05-27 10:14 | XMS_ITS | Encounter Summary ---
:1995 Author Organization [facility] Address [address] [place] [address] Care Team Providers Name Role Phone Rob Tillman MD Primary Care Provider Reason for Referral Therapies (Routine) - Closed Specialty Diagnoses / Procedures Referred By Contact Refer red To Contact Diagnoses Pelvic floor dysfunction Rob Tillman MD [address] [place] [id number] Referral ID Status Reason Start Date Expiration Date Visits Requ ested Visits Authorized [id number] Closed 12/26/2020 12/25/2021 1 1 Scheduling Instructions Your provider has recommended an appoint ment with a [facility] Physical Therapist. Call [facility] at . We suggest you call your health insurance company about your coverage an d benefits for this appointment. Encounter Details Date Type Department Care Team Description 12/25/2020 Notes/Orders [facility] Candie Acosta, PT Pelvic floor PHYSICAL THERAPY [address] dysfunction (Primary [address] 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 If you agree with this recommendation, please sign. Do not close the Notes and Orders encounter. Click on Done to remove message from your In Basket. Thank you. documented in this encounter Plan of Treatment Upcoming Encounters Date Type Specialty Care Team Description 06/12/2022 Appointment Urology Raj Castro MD [address] [place], [place] [address] (Wo rk) 09/28/2022 Telemedicine Psychiatry Humera Bush MD [address] [place], [place] [address] (Wo rk) Scheduled Referrals Name Type Priority Associated Diagnoses Order S chedule Physical Therapy Referral Routine Pelvic floor dysfunction Ordered: 12/26/2020 documented as of this encounter Visit Diagnoses Diagnosis Pelvic floor dysfunction - Primary Pelvic muscle wasting documented in this encounter Care Teams Uniform Maker Relationship Specialty Start Date End Date Rob Tillman MD PCP - General Physical Medicine and 08/01/19 [address] [facility] [place] [place] [address] documented as of this encounter
--- OUTSIDE RECORDS SUMMARY | 2022-05-27 10:14 | XMS_ITS | Encounter Summary ---
:1995 Author Organization [facility] Address [address] [place] [address] Care Team Providers Name Role Phone Rob Tillman MD Primary Care Provider Reason for Visit Reason Comments Refill Encounter Details Date Type Department Care Team Description 07/24/2021 Refill [facility] Psychiat Humera Guerrero MD Refill 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 IC HEALTH MICROBIOLOGIST documented in this encounter Plan of Treatment Upcoming Encounters Date Type Specialty Care Team Description 06/12/2022 Appointment Urology Raj Castro MD [address] [place] [phone] (Wo rk) 09/28/2022 Telemedicine Psychiatry Humera Bush MD [address] [place], [place] [address] (Wo rk) documented as of this encounter Visit Diagnoses Not on filedocumented in this encounter Care Teams Tire Repairer Relationship Specialty Start Date End Date Rob Tillman MD PCP - General Physical Medicine and 08/01/[address] [place] [address] [place] [address] documented as of this encounter
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
--- OUTSIDE RECORDS SUMMARY | 2022-05-27 10:14 | XMS_ITS | Encounter Summary ---
:1995 Author Organization [employer] Address [address] [place] [address] Care Team Providers Name Role Phone Rob Tillman MD Primary Care Provider Reason for Visit Reason Comments Rachelle Prior Authorization Request Encounter Details Date Type Department Care Team Description 04/02/2021 Telephone [facility] Humera Bush Reeve; Tessy baca Psychiatry Authorization Request 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 Charisma Lloyd LPN - 04/02/2021 4:40 PM CDT Spoke with [facility] and scripts were transferred to [facility]. Spoke with [facility] and they will contact [place] to see if it is just needing NDC # and NPI # updated since the transfer. Electric Power Machine Operator unable to see where additional PA is needed. Pharmacist Urban will return call if needing anything more from Dr. Bush's office. documented in this encounter Plan of Treatment Upcoming Encounters Date Type Specialty Care Team Description 06/12/2022 Appointment Urology Raj Castro MD [address] [place], [place] [address] (Wo rk) 09/28/2022 Telemedicine Psychiatry Humera Bush MD [address] [place], [place] [address] (Wo rk) documented as of this encounter Visit Diagnoses Not on filedocumented in this encounter Care Teams Spaghetti Machine Operator Relationship Specialty Start Date End Date Rob Tillman MD PCP - General Physical Medicine and 08/01/19 [address] [facility] Rehabilitation [place], [place] [phone] documented as of this encounter
--- OUTSIDE RECORDS SUMMARY | 2022-05-27 10:14 | XMS_ITS | Encounter Summary ---
:1995 Author Organization [employer] Address [address] [place] [address] Care Team Providers Name Role Phone Rob Tillman MD Primary Care Provider Reason for Referral Procedure/Equipment (Routine) - Closed Specialty Diagnoses / Procedures Referred By Contact Refer red To Contact Diagnoses Neurogenic dysfunction of the urinary bladder Pelvic floor dysfunction [facility] [address] [place] [address]. [place] [address] Referral ID Status Reason Start Date Expiration Date Visits Requ ested Visits Authorized [id number] Closed 02/12/2021 05/14/2022 20 20 Scheduling Instructions . Reason for Visit Reason Comments Pelvic Health Procedure/Equipment (Routine) - Closed Specialty Diagnoses / Procedures Referred By Contact Refer red To Contact Diagnoses Neurogenic dysfunction of the urinary bladder Pelvic floor dysfunction [facility] [address] [place] [address]. [place] [phone] Referral ID Status Reason Start Date Expiration Date Visits Requ ested Visits Authorized [id number] Closed 02/12/2021 05/14/2022 20 20 Encounter Details Date Type Department Care Team Description 02/12/2021 Office Visit [facility] Candie Smith, PT Neurogenic dysfunction of the urinary bl adder; PHYSICAL THERAPY [address] [place] [address] Pelvic floor dysfunction [address] [place] [address]. 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 Status complicated with spina bifida with L hip dysplasia with multiple surgeries and non-surgical candidate for hip replacement, Hodgkin lymphoma, asthma, s/p shunt with hydrocephalus, s/p thoracolumbar fusion,chiari decompression. Positive findings include L hip ROM, voidingposture, faulty breathing pattern with accessory breathing, scar mobility, pelvic floor coordinationwith bulge with breath holding. Functional impairments of elevated fluid volumes, elevated bladder irritants. Improvements include urinary frequency, urinary hesitancy, scar mobility, breathing pattern, pelvic floor ROM. Patient will benefit from Skilled Physical Therapy services to address these impairments. Goals (10 visits): Not assessed on 02/12/2021 1. Normalize fluid intake to 64-80 ounces. per day, reduce bladder irritants by 10%. 2. Normalize frequency of voids, voiding every 3-4 hours. 3. Based on pelvic floor assessment, patient will demonstrate stable resting tone within functional limits demonstrating good coordination and neuromuscular control appropriate for normal voiding and defecation patterns. PLAN Plan for Next Session: Pt declining PT for L hip at this time Pt wanting to continue HEP independently and f/u with PT via myChart in 1 month for status Treatment Plan: Treatment: Neuromuscular reeducation - biofeedback training, physiologic quieting and downtraining techniques for pelvic floor relaxation, pelvic floor strengthening, coordination and endurance training, and diaphragmatic breathing Manual therapy - connective tissue manipulation, MET, ischemic compression, trigger point release, myofascial release techniques, instruction in self techniques, internal trigger point, myofascial release techniques, and abdominal massage Therapeutic exercises - pelvic and core stabilization, pelvic alignment corrections, strengthening and flexibility/stretching Therapeutic activities - posture, body mechanics training, Home Management Training - instruction and progression of toileting postures, constipation and urge management strategies dilator/vibrator use, positioning for intercourse, lubricant options Frequency of Treatment: 1 sessions every week to every other week. Expected Total Visits: 10. VISIT INFORMATION Medicare Insurance Info: Total Units Used (including today): Today's Visit Number: 2 Progress Note Needed at Visit Number: 10 Certification Period: 12/18/2020 - 03/17/21 Date of Onset: 10/31/2020 Treatment Diagnoses: ICD-10-CM 1. Neurogenic dysfunction of the urinary bladder N31.9 2. Pelvic floor dysfunction M62.89 Past Medical History, Diagnostic Tests, and Medications: Reviewed in [facility]. Urodynamic study: Barriers/Restrictions: Spina bifida/neurogenic bladder Precautions: Patient Active Problem List Diagnosis ??? Hodgkin lymphoma, unspecified, lymph nodes of axilla and upper limb (HRC) ??? Spina bifida (HRC) ??? Alternating esotropia with A pattern, s/p bimedial recession 10/05/07, then repair consecutive XT with bimedial advancement 05/09/08 ??? Attention deficit hyperactivity disorder (ADHD), combined type ??? Major depressive disorder, single episode, severe (HRC) ??? Mild intermittent asthma ??? 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 (HRC) ??? ADHD (attention deficit hyperactivity disorder), inattentive type ??? Nonverbal learning disorder ??? 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[employer], has unrestricted access to restroom Dietary Considerations and Fluid Intake: Caffeine consumption: 32 ounces coffee/day, 12 caffeinated regular soda per other day Fluid intake: 72 ounces of water - large amounts throughout day, 16-24 ounces of cows milk, 8-16 ounces V8 per day Evening fluid levels: n/a--denies Diet: chocolate, sugar intake: soda Total fluid volume: 128-156 ounces Bladder irritants: 31% Recommendation per body weight: 66 ounces/day Pertinent Medical History Date of Last Prostate Exam: denies Smoking status: non-smoker History of back or hip pain: Low back pain when sitting in old wheel chair at work, scheduled for wheel chair screen Surgical History: Past Surgical History: Procedure Laterality Date ??? STRABISMUS SURG; 2 HORIZONTAL MUSC Bilateral 05/09/2008 Medial rectus advancement OU ??? STRABISMUS SURG; 2 HORIZONTAL MUSC Bilateral 10/05/2007 A-pattern ET w/BSOOA. 4.5mm RMRc w/ 1/2 muscle w/ superior transposition. 4.0 mm LMRc 1/4 muscle superior transposition. Multiple L hip surgeries: Valgus producing osteotomy/left femoral dislocation T8-L4 fusion hydrocephalus shunt Chiari decompression Medications Reviewed: Yes Exercise History: Denies Current Family/Community Support: lives with family: parents, brother, dog Goals: Not yet, will come up with them as we go OBJECTIVE Estimated body mass index is 24.94 kg/m?? as calculated from the following: Height as of 12/18/20: 5' 1 (1.549 m). Weight as of 12/18/20: 132 lb (59.9 kg). Posture/Observations: Seated voiding posture: With squatty potty Pelvis: anterior pelvic tilt Femoral: left femoral adduction/internal rotation Transfers/Transitional Movements/Functional Mobility: Independent, sit to stand with use of B forearm crutches Gait: step through with bilateral B forearm crutches, limited weight bearing on L LE Rib angle: Total 75 degrees/70 degrees post session R 40 degrees/35 degrees post session L 35 degrees Scar: R rib angle: mid puckering mid incision R posterior rib: limited mobility mid and inferior scar Thoracolumbar scar: limited mobility Breathing pattern: Abdominal: WFL Rib cage excursion: limited R with apical/accessory substitution Pelvic floor: Pelvic Floor examination: Perineal observation: good skin health, symmetry with no scars Perineal rest position: elevated Breathing pattern: limited ischial fanning L Perineum descent: paradoxical contraction of pelvic floor, valsalva Sensory Screen: intact to light touch S2-S5 B THERAPY OUTCOMES None collected today TODAY'S SESSION Home management (20 minutes): Pt instructed in: Fluid volume/bladder irritants Bladder irritants/pH Caffeine and impact on sleep Manual therapy (10 minutes): Skin rolling: R UQ (petechiae noted)--instructed for home R posterior rib cage to iliac crest (histamine response)--instructed for home Neuromuscular Re-education (25 minutes): Objective assessment 3-part breath in supine X 5, tactile cues on lateral rib cage X 5, green theraband X 5 Supine reverse kegel X 5--finger on sit bones Side lying reverse kegel X 5--fingers on tail bone Therapeutic activity (5 minutes): Pt was given verbal instruction followed by demonstration followed lastly by an opportunity to practice toilet posture to encourage full emptying:. ??? Squatty potty with feet supported and use of shoes for traction/brace on ??? Pelvic tilts ??? Lean forward bending at the hips three times ??? Avoid valsalva--replacing with diaphragmatic breathing/everse kegel--use of fingers on sit bone and tailbone Pt demonstrated good understanding of educational information given. Patient's Response to Therapy: Improved rib cage mobility with manual therapy, improved breathing pattern without accessory breathing with tactile feedback to rib cage, good ROM to pelvic floor with feedback of fingers on ischial tuberosity and tailbone Home Program with Expected Frequency: Diaphragmatic breathing with green theraband 1-5 minutes 3X/day Supine/sidelying reverse kegel supine 1-5 minutes 3X/day Current Self-Management: Fluid volume/bladder irritants Voiding strategies/reverse kegel Timed Code Minutes: 60 minutes Untimed Code Minutes: 0 minutes Total Treatment Time: 60 minutes Candie Acosta, VIRAL 02/12/2021 documented in this encounter Plan of Treatment Upcoming Encounters Date Type Specialty Care Team Description 06/12/2022 Appointment Urology Raj Castro MD [address] [place], [place] [address] (Wo rk) 09/28/2022 Telemedicine Psychiatry Humera Bush MD [address] [place], [place] [address] (Wo rk) Scheduled Referrals Name Type Priority Associated Diagnoses Order S chedule Rehab Therapies Follow Referral Routine Neurogenic dysfunc tion Ordered: 02/12/2021 Up of the urinary b ladder Pelvic floor dysfunction documented as of this encounter Visit Diagnoses Diagnosis Neurogenic dysfunction of the urinary bl adder Neurogenic bladder, NOS Pelvic floor dysfunction Pelvic muscle wasting documented in this encounter Care Teams Oven Tender Relationship Specialty Start Date End Date Rob Tillman MD PCP - General Physical Medicine and 08/01/19 295 [facility] [place] [address] documented as of this encounter
--- OUTSIDE RECORDS SUMMARY | 2022-05-27 10:14 | XMS_ITS | Encounter Summary ---
:1995 Author Organization [facility] [facility] [email or web address] Address [address] [place] [address] Care Team Providers Name Role Phone Rob Tillman MD Primary Care Provider Reason for Visit Reason Comments THERAPY ORDERS Encounter Details Date Type Department Care Team Description [email or web address] THERAPY ORDERS Center Informatics Specialist apy [address] 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 In order to remain compliant with CMS guidelines, we need your co-signature on this Plan of Care within 30 days. Please sign the 12/18/20 POC Certification for Physical Therapy. If you do not see the Plan of Care in the [employer] Epic Notes folder in your In Basket, please let us know, so we can resend the note to you. No action is needed for this telephone encounter Thank you so much for your help! documented in this encounter Plan of Treatment Upcoming Encounters Date Type Specialty Care Team Description 06/12/2022 Appointment Urology Raj Castro MD [address] [place], [place] [address] (Wo rk) 09/28/2022 Telemedicine Psychiatry Humera Bush MD [address] [place], [place] [address] (Wo rk) documented as of this encounter Visit Diagnoses Not on filedocumented in this encounter Care Teams Process Maintenance Technician Relationship Specialty Start Date End Date Rob Tillman MD PCP - General Physical Medicine and 08/01/19 295 [facility] [place] [place] [address] documented as of this encounter
--- OUTSIDE RECORDS SUMMARY | 2022-05-27 10:14 | XMS_ITS | Encounter Summary ---
:1995 Author Organization [facility] Address [address], [place] [address] Care Team Providers Name Role Phone Rob Tillman MD Primary Care Provider Reason for Visit Reason Comments Dme Supply [facility] Encounter Details Date Type Department Care Team Description [facility] ([facility] Neuroscience [place] MD [facility]) Physical Medicine [address] 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 Sent to scanning, Thank you. Josias Gee 02/03/2021, 4:05 PM Rob Tillman MD - 02/03/2021 3:11 PM CDT Form completed, given to clinical research manager for faxing. Rob Tillman MD 02/03/2021, 3:11 PM Chantelle Blank, RN - 01/31/2021 8:54 AM CDT On MD desk Chantelle Blank RN 01/31/2021, 8:56 AM Abigail Willett - 01/31/2021 8:00 AM CDT Images from the original note were not included. Recd fax from [facility] Placed fax in providers right fax folder to review Abigail Willett 01/31/2021, 8:00 AM documented in this encounter Plan of Treatment Upcoming Encounters Date Type Specialty Care Team Description 06/12/2022 Appointment Urology Raj Castro MD [address] [place], [place] [address] (Wo rk) 09/28/2022 Telemedicine Psychiatry Humera Bush MD [address] [place], [place] [address] (Wo rk) documented as of this encounter Visit Diagnoses Not on filedocumented in this encounter Care Teams Pin Or Clip Fastener Relationship Specialty Start Date End Date Rob Tillman MD PCP - General Physical Medicine and 08/01/19 295 [facility] [place] [address] documented as of this encounter
--- OUTSIDE RECORDS SUMMARY | 2022-05-27 10:14 | XMS_ITS | Encounter Summary ---
:1995 Author Organization [facility] Address [address], [place] [address] Care Team Providers Name Role Phone Rob Tillman MD Primary Care Provider Reason for Visit Reason Comments Forms shower chair back and remova ble arm Encounter Details Date Type Department Care Team Description 01/21/2021 Telephone [facility] Rob Tillman Forms ([facility] MD Sophie back and removable Physical Medicine [address] arm) [address] 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 Sent to scanning, Thank you. Josias Gee 01/24/2021, 3:30 PM Rob Tillman MD - 01/24/2021 2:15 PM CDT Form completed, given to clinical support nurse for faxing. Requested documentation was added to note dated 01/13/21. Rob Tillman MD 01/24/2021, 2:18 PM Dariana Lundberg CMA - 01/22/2021 8:42 AM CDT Form printed and placed in folder for review and signature. Dariana Lundberg CMA 01/22/2021, 8:43 AM Cesar Combs - 01/21/2021 1:55 PM CDT Images from the original note were not included. Recd fax from [employer] Placed in providers right fax Cesar Combs 01/21/2021, 1:56 PM documented in this encounter Plan of Treatment Upcoming Encounters Date Type Specialty Care Team Description 06/12/2022 Appointment Urology Raj Castro MD [address] [place], [place] [address] (Wo rk) 09/28/2022 Telemedicine Psychiatry Humera Bush MD [address] [place], [place] [address] (Wo rk) documented as of this encounter Visit Diagnoses Not on filedocumented in this encounter Care Teams Varnish Blender Relationship Specialty Start Date End Date Rob Tillman MD PCP - General Physical Medicine and 08/01/19 [address] [facility] Rehabilitation [place], [place] [phone] documented as of this encounter
--- OUTSIDE RECORDS SUMMARY | 2022-05-27 10:14 | XMS_ITS | Encounter Summary ---
:1995 Author Organization [facility] Address [address] [place] [address] Care Team Providers Name Role Phone Rob Tillman MD Primary Care Provider Reason for Visit Reason Comments Questions, Aftercare Encounter Details Date Type Department Care Team Description 09/02/2021 Telephone [facility] Lynch Questions, Aftercare [facility] MD Sophie Physical Medicine [address] 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 Makenzie Elias RN 09/08/2021, 3:29 PM Makenzie Elias RN - 09/04/2021 9:54 AM CST I called pt, He states that he is at work and will call us back later. States he has the phone number to call. Makenzie Elias RN 09/04/2021, 9:55 AM RNATIONAL LOGISTICS MANAGER Rob Tillman MD - 09/03/2021 5:22 PM CST Provider is unclear on why patient is having significant fatigue as well as a change in his bladder/bowel habits. It is possible that both the diarrhea and Urination is she could be related to the caffeine but this is unclear at this time. Provider will order labs which will include blood count, electrolytes as well as thyroid test. Provider recommends that patient remain hydrated. Rob Tillman MD 09/03/2021, 5:25 PM RNATIONAL LOGISTICS MANAGER Makenzie Elias RN - 09/02/2021 4:[address] Tillman, Pt called to states he is falling asleep at job no matter how much caffeine he is taking in, also states that he is having to use the bathroom too frequently (both urination and states having diarrhea) States this is going to make him lose his job (I also told him about previous message per Dr Tillman and he would like to have lab drawn to check his thyroid also) Please advise and order lab. Makenzie Elias RN 09/02/2021, 4:43 PM RNATIONAL LOGISTICS MANAGER Alessia Gil - 09/02/2021 2:19 PM CST Patient calling to speak with Dr Tillman about some GI issues he is having that would possible get him fired. Please call patient to discuss Alessia Gil 09/02/2021, 2:21 PM RNATIONAL LOGISTICS MANAGER documented in this encounter Plan of Treatment Upcoming Encounters Date Type Specialty Care Team Description 06/12/2022 Appointment Urology Raj Castro MD [address] [place] [address] (Wo rk) 09/28/2022 Telemedicine Psychiatry Humera Bush MD [address] [place], [place] [address] (Wo rk) documented as of this encounter Results (ABNORMAL) Basic Metabolic Panel (09/10/2021 4:30 PM CDT) Analysis Performed At [facility] Time Signature Sodium 141 136 - 145 09/10/2021 [facility] mmol/L 9:17 PM CDT [facility] Potassium 4.0 3.5 - 5.1 09/10/2021 [facility] mmol/L 9:17 PM CDT [facility] Chloride 103 98 - 109 09/10/2021 [facility] mmol/L 9:17 PM CDT [facility] CO2 29 20 - 29 09/10/2021 [facility] mmol/L 9:17 PM CDT [facility] Anion Gap 9 7 - 16 09/10/2021 [facility] mmol/L 9:17 PM CDT [facility] Calcium 10.7 (H) 8.4 - 10.4 09/10/2021 [facility] mg/dL 9:17 PM CDT [facility] Comment: Low serum albumin may artificia lly lower total calcium, without impacting ionized calcium concentrations. If patie nt has or is at risk for hypoalbuminemia, consider ionized serum calcium to more a ccurately assess calcium status. BUN 12 7 - 26 mg/dL 09/10/2021 9:17 PM [facility] CDT LAB Creatinine 0.97 0.73 - 1.18 09/10/2021 9:17 PM [facility] mg/dL CDT LAB GFR, Estimated >60 >60 09/10/2021 9:17 PM [facility] mL/min/1.73m2 CDT LAB Glucose 92 70 - 100 mg/dL 09/10/2021 9:17 PM [facility] CDT LAB Comment: The given reference range is fo r the fasting state. Non-fasting reference range for glucose is 70 - 180 mg/dL. Hours Fasting 3 09/10/2021 9:17 PM CDT [facility] Specimen Anatomical Collection Method / Collection Time Recei rufus Time (Source) Location / Volume Laterality Blood Venipuncture / 09/10/2021 4:30 09/10/2021 4:30 Unknown PM CDT PM CDT Rob Tillman MD LAB_1 Performing Organization Address City/[facility]/ZIP Code Phon e Number [facility] [address] [address] [facility] [address] [place] [address], [facility] (ABNORMAL) Complete Blood Count-No Diff (09/10/2021 4:30 PM CDT) P athologist Signature WBC 5.5 3.5 - 10.5 09/10/2021 [facility] x10(9)/L 4:32 PM CDT LAB RBC 4.85 4.32 - 5.72 09/10/2021 [facility] x10(12)/L 4:32 PM CDT LAB Hemoglobin 15.3 13.5 - 17.5 09/10/2021 [facility] g/dL 4:32 PM CDT LAB HCT 42.9 38.8 - 50.0 09/10/2021 [facility] % 4:32 PM CDT LAB MCV 88.5 80.0 - 09/10/2021 [facility] 100.0 fL 4:32 PM CDT LAB MCH 31.5 27.6 - 33.3 09/10/2021 [facility] pg 4:32 PM CDT LAB MCHC 35.7 (H) 31.5 - 35.2 09/10/2021 [facility] g/dL 4:32 PM CDT LAB RDW 11.7 (L) 11.9 - 15.5 09/10/2021 [facility] % 4:32 PM CDT LAB Platelets 238 150 - 450 09/10/2021 [facility] x10(9)/L 4:32 PM CDT LAB Specimen Anatomical Collection Method / Collection Time Recei rufus Time (Source) Location / Volume Laterality Blood Venipuncture / 09/10/2021 4:30 09/10/2021 4:30 Unknown PM CDT PM CDT Rob Tillman MD LAB_1 Performing Organization Address City/[facility]/ZIP Code Phon e Number [facility] [id number] [place] [phone] TSH (09/10/2021 4:30 PM CDT) [facility] gist Method Time Signature TSH, Sensitive 2.17 0.30 - 09/10/2021 [facility] 4.50 9:24 PM CDT [facility] uIU/mL Specimen Anatomical Collection Method / Collection Time Recei rufus Time (Source) Location / Volume Laterality Blood Venipuncture / 09/10/2021 4:30 09/10/2021 4:30 Unknown PM CDT PM CDT Rob Tillman MD LAB_1 Performing Organization Address City/State/ZIP Code Phon e Number [facility] [address] [address] documented in this encounter Visit Diagnoses Diagnosis Spina bifida without hydrocephalus, unsp ecified spinal region (HRC) - Primary documented in this encounter Care Teams Apprenticeship Consultant Relationship Specialty Start Date End Date Rob Tillman MD PCP - General Physical Medicine and 08/01/19 [address] [facility] [place] [address] documented as of this encounter
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
--- OUTSIDE RECORDS SUMMARY | 2022-05-27 10:14 | XMS_ITS | Encounter Summary ---
:1995 Author Organization [facility] Address [address] [place] [address] Care Team Providers Name Role Phone Rob Tillman MD Primary Care Provider Reason for Visit Reason Comments Billing Question Encounter Details Date Type Department Care Team Description 01/22/2021 Telephone Specialty Center [address] Jaquan Soria Billing Question Orthopedics Clinic [address] [place] [address]. 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 I call patient accounting ([phone]) and they show every thing was paid by insurance. I called and relayed this to Fly and told him taht if he has any further questions related to this issue to contact patient accounting at the number above. He had no further questions or concerns. documented in this encounter Plan of Treatment Upcoming Encounters Date Type Specialty Care Team Description 06/12/2022 Appointment Urology Raj Castro MD [address] [place], [place] [address] (Wo rk) 09/28/2022 Telemedicine Psychiatry Humera Bush MD [address] [place], [place] [address] (Wo rk) documented as of this encounter Visit Diagnoses Not on filedocumented in this encounter Care Teams [place] Relationship Specialty Start Date End Date Rob Tillman MD PCP - General Physical Medicine and 08/01/19 [address] [facility] [place] [address] documented as of this encounter
--- OUTSIDE RECORDS SUMMARY | 2022-05-27 10:14 | XMS_ITS | Encounter Summary ---
:1995 Author Organization [facility] Address [address], [place] [address] Care Team Providers Name Role Phone Rob Tillman MD Primary Care Provider Reason for Referral Procedure/Equipment (Routine) - New Request Specialty Diagnoses / Procedures Referred By Contact Refer red To Contact Diagnoses Spina bifida without hydrocephalus, unspecified spinal region (HRC) Rob Tillman MD Procedures Wheelchair/Scooter Repairs [address] [place] [address] Referral ID Status Reason Start Date Expiration Date Visits V isits Requested Authorized [id number] New Request 07/14/2021 10/13/2022 1 1 R WEIGHER Reason for Visit Reason Comments Revisit Encounter Details Date Type Department Care Team Description 07/14[facility] Sp[facility] bifi da without hydrocephalus, unspecified spinal region (HRC) (Primary Dx); [facility] MD Sophie Neurogenic bladder; Physical Medicine [address] Neurogenic bowel; [address] 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 Revisit History of Present Illness: I had the pleasure of seeing Mr. Fly Moran on 03/28/2018 in the physical medicine and rehabilitation outpatient clinic in follow-up with regards to spina bifida. ?? Fly Moran is a 22 y.o. old male with a hx of spina bifida . Pt was referred to OP SCI clinic from Hope Cook at the [facility] for general SCI care and management. [...] seen in Physical Medicine Rehabilitation and on December of 2020. ?? Patient states today that he is doing ???pretty good? 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 ?? In the interim a shower chair was ordered, he says that this is working well. ?? Mood is good she, says he is emotionally doing well. ?? He does complain of fatigue but he attributes this to having a full-time schedule at work. ?? As an aside patient had his CADI waiver covered automatic pillbox, this is been going well for him. ?? Overall patient is eating and sleeping well. ?? He does not have any significant pain complaints and has not had any recent falls in the interim. ?? Bowel and bladder are consistent, has not had to do any intermittent cathing in a long time and he has a daily bowel movement, no accidents. ?? Patient did admit to erectile dysfunction but would like to defer treatment for later conversation. ?? DME/Therapies/Function: Therapies: not in any formal therapies, working on HEP Equipment: MWC, [employer] crutches. ADL's: independent Past Medical History: Spina bifida astma Myelomeningocele Depression Anxiety ADHD Hodgkin's Disease ? Family History: Non-contributory ?? Social history: He is working at [employer]. He is working on [employer]. The patient lives with hisparents. He reports [...] ? Molds & Smuts Other, see comments Langley mold- Respiratory Distress ??? Other Swelling Spider Venom: Severe local swelling Physical Exam: Gen: sitting in manual wheelchair with no acute distress Respiratory: breathing comfortably in room air. Cognition: Grossly intact, able to engage in conversation fully in appropriately Labs: Hemoglobin Date Value 05/06/2021 16.8 g/dL 04/20/2020 16.2 g/dL 04/20/2019 17.5 g/dL 04/21/2018 15.9 g/dl WBC Date Value 05/06/2021 4.9 x10(9)/L 04/20/2020 3.2 x10(9)/L (L) 04/20/2019 4.2 x10(9)/L 04/21/2018 5.1 k/ul BUN Date Value 05/06/2021 17 mg/dL 04/21/2018 14 mg/dl Sodium (mmol/L) Date Value 05/06/2021 139 04/21/2018 140 Potassium (mmol/L) Date Value 05/06/2021 4.0 04/21/2018 3.5 Chloride (mmol/L) Date Value 05/06/2021 101 04/21/2018 102 Glucose Date Value 05/06/2021 100 mg/dL 04/21/2018 82 mg/dl Creatinine Date Value 05/06/2021 0.89 mg/dL 04/21/2018 0.93 mg/dl GFR, Estimated Date Value 05/06/2021 >60 mL/min/1.73m2 04/21/2018 >60 ml/min/1.73m2 GFR, Est., If Black (ml/min/1.73m2) Date Value 04/21/2018 >60 Calcium Date Value 05/06/2021 10.0 mg/dL 04/21/2018 9.8 mg/dl Anion Gap (calc.) (mmol/L) Date Value 04/21/2018 8 Anion Gap (mmol/L) Date Value 05/06/2021 8 No results found for: CRP Sedimentation Rate (mm/hr) Date Value 04/20/2020 1 Alkaline Phosphatase (U/L) Date Value 05/06/2021 76 04/21/2018 79 Impression: 25 y.o. old male with a hx of spina bifida, [facility] Doing [facility]. ?? Plan: 1. Patient education: I went over the above diagnoses and treatment plan with him and answered all of his questions. 2. Exercise program: Continue HEP, stay active 3. Medications: none prescribed this visit 4. Imaging Orders: none per Physical Medicine and Rehabilitation 5. Continue seeing in the community for hx of depression and anxiety 6. Erectile dysfunction: Deferred treatment for later time 7. DME: 1. Torso wings ordered ([facility]) 2. Bilateral AFOs and shoe lift ordered ([facility]) 8. Follow as indicated: 1. NSGY 2. Oncology 3. Urology 4. Ophthalmology 9. Follow up: [address] Tillman Billing based on: time Total time for the visit was 30 minutes including [id number] time spent reviewing records, counseling, and coordination of care. Location of provider: Clinic Location of patient: Home Rob Tillman MD 07/14/2021, 1:03 PM Physical Medicine & Rehabilitation R WEIGHER documented in this encounter Plan of Treatment Upcoming Encounters Date Type Specialty Care Team Description 06/12/2022 Appointment Urology Raj Castro MD [address] [place], [place] [address] (Wo rk) 09/28/2022 Telemedicine Psychiatry Humera Bush MD [address] [place], [place] [address] (Wo rk) documented as of this encounter Visit Diagnoses Diagnosis Spina bifida without hydrocephalus, unsp ecified spinal region (HRC) - Primary Neurogenic bladder Neurogenic bladder, NOS Neurogenic bowel Gait abnormality Abnormality of gait documented in this encounter 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
--- OUTSIDE RECORDS SUMMARY | 2022-05-27 10:14 | XMS_ITS | Encounter Summary ---
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 Patient will benefit from [facility] Occup[employer]rap[employer] for education re: AE options to maximize independence and UE exercise program to maximize UE function and prevent injury. Education provided including handouts and goals met - D/C OT. Long-Term Goals: Pt will have education re: AE options and UE exercises to maximize independence with ADLs. Pt will have education re: community resources to maximize independence and participation in ADLs and IADLs PLAN Reason for Discharge: eval, and education completed on initial visit Discharge Plan: No further out patient Occupational Therapy is indicated at this time VISIT INFORMATION Medicare Insurance Info: Total Units Used (including today): Today's Visit Number: 1 Progress Note Needed at Visit Number: 10 Certification Period: 01/13/2021 - 04/12/21 Date of Onset: Past Medical History, Diagnostic Tests, and Medications: Reviewed in [employer]. 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 Hobbies/Interests: taking classes/ certifications ADL STATUS: Feeding: independent Grooming/Hygiene: modified independent Dressing: modified independent Bathroom Location and Set-Up: main level Current shower chair: standard shower chair Bathing: modified independent Time spent in shower chair per day: 1 hour ILS 1 X per week - shopping and laundry - hoping for more frequency Medical service - plans for 2 X per month to Once living in own home Toileting: working with pelvic floor therapist Adaptive equipment for toilet task: Bowel management: Continent- diet helping with management Bladder management: } Pelvic floor therapy to assist with hesitancy Medication Management: pill set up in med box with assist of ILS worker - Meal Prep: making light meals, using crutches and walker Home management: ILS worker will assist Finances: ILS worker assist with budgeting Shopping: ILS takes shopping to help with easier with food MOBILITY SKILLS: Bed to w/c transfer: using crutches at home for mobility and transfers Ambulation: with crutches and walker Manual w/c propulsion: independent Able to perform weight shifts: independent Hours spent sitting in w/c each day: mostly using crutches ath ome Using lyft for transportation - does not drive At home uses crutches; Has trailing walker Current seating/mobility: Current shower chair is standard chair - unsure if if would work in new shower at apartment Grab bar at home refer to PT note for more details Sensation: History of pressure ulcers: 15 + years ago Current pressure ulcer: none Previous Therapy for This Condition: Yes Outcome Measures: None - eval only Current Family/Community Support: family and mom attends treatment this date Patient's Goals: Get exercises ' Move into independent apartment OBJECTIVE Estimated body mass index is 24.94 kg/m?? as calculated from the following: Height as of 12/18/20: 5' 1 (1.549 m). Weight as of 12/18/20: 132 lb (59.9 kg). Upper Extremity Function Bilateral UE ROM / strength WNL Muscle Tone: WNL UE Stomps : issued STOMPS program for UE strengthening Provided handouts, education , demonstration and green theraband Pt and mom instructed and mom will help set up at home Cognition Alert, oriented and good historian Pt easily distracted - although able to direct back to task Adaptive Equipment Recommendations: Patient already owns: Manual chair Canes Shower chair with back Recommendations: Shower stool to allow chair to fit into new shower TODAY'S SESSION OT Evaluation: 40 minutes. A Moderate Complexity Occupational Therapy Evaluation CPT 67865 was completed. Occupational profile/history: expanded review of records and medical history. Assessment: 3-5 performance deficits. Please see function and assessment sections. Clinical decision making: consideration of several treatment options and patient may have co-morbidities. Self-Care/Home Management: 15 minutes. Patient Education: Provided education regarding role of OT inoutpatient therapy. Provided instruction in STOMPS HEP Education re: shower chair options and set up for new shower chair Patient's Response to Therapy: Active participant in evaluation and education Home Program: Fly Moran educated in Home Program to improve UE strength - STOMPS PROGRAM Education re: adaptive equipment For shower at home Timed Code Minutes: 15 minutes Untimed Code Minutes: 40 minutes Total Treatment Time: 55 minutes Katy Somers OTR/L 01/13/2021 Associated attestation - Rob Tillman MD - 01/14/2021 10:53 PM CDT Rob Tillman MD 01/14/2021, 10:53 PM documented in this encounter Plan of Treatment Upcoming Encounters Date Type Specialty Care Team Description 06/12/2022 Appointment Urology Raj Castro MD [address], [place] [address] (Wo rk) 09/28/2022 Telemedicine Psychiatry Humera Bush MD [address] [place], [place] [address] (Wo rk) documented as of this encounter Visit Diagnoses Diagnosis Spina bifida of lumbar region with hydro cephalus (HRC) - Primary Impaired mobility Other ill-defined conditions Activity of daily living alteration Debility, unspecified documented in this encounter Care Teams Channel Program Manager Relationship Specialty Start Date End Date Rob Tillman MD PCP - General Physical Medicine and 08/01/19 [address] [facility] [place] [place] [address] documented as of this encounter
--- OUTSIDE RECORDS SUMMARY | 2022-05-27 10:14 | XMS_ITS | Encounter Summary ---
:1995 Author Organization [facility] Address [address] [place] [address] Care Team Providers Name Role Phone Rob Tillman MD Primary Care Provider Encounter Details Date Type Department Care Team Description 05/06/2021 Lab Visit 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 Wyatt Oneil MD PRESIDENT CLIENT SERVICES documented in this encounter Plan of Treatment Upcoming Encounters Date Type Specialty Care Team Description 06/12/2022 Appointment Urology Raj Castro MD [address] [place] [phone] (Wo rk) 09/28/2022 Telemedicine Psychiatry Humera Bush MD [address] [place] [phone] (Wo rk) documented as of this encounter Procedures Procedure Name Priority Date/Time Associated Comments Diagnosis CBC AND DIFFERENTIAL STAT 05/06/2021 11:40 Hodgkin lymphoma , Results for this PANEL AM VICE PRESIDENT CLIENT SERVICES unspecified, lymph procedure are in nodes of axilla and the resu lts upper limb (HRC) section. COMPLETE BLOOD STAT 05/06/2021 11:40 Hodgkin lymphoma, Resu lts for this COUNT-W/DIFF AM VICE PRESIDENT CLIENT SERVICES unspecified, lymph procedure are in nodes of axilla and the resu lts upper limb (HRC) section. LIVER PANEL(HEPATIC STAT 05/06/2021 11:40 Hodgkin lymphoma, Results for this FUNCTION PANEL) AM VICE PRESIDENT CLIENT SERVICES unspecified, lymph proced ure are in nodes of axilla and the resu lts upper limb (HRC) section. TSH, SENSITIVE Routine 05/06/2021 11:40 Hodgkin lymphoma, Resu lts for this AM VICE PRESIDENT CLIENT SERVICES unspecified, lymph procedure are in nodes of axilla and the resu lts upper limb (HRC) section. BASIC METABOLIC PANEL STAT 05/06/2021 11:40 Hodgkin lymphom a, Results for this AM VICE PRESIDENT CLIENT SERVICES unspecified, lymph procedure are in nodes of axilla and the resu lts upper limb (HRC) section. documented in this encounter Results (ABNORMAL) Complete Blood Count-W/Diff (05/06/2021 11:40 AM VICE PRESIDENT CLIENT SERVICES) Analysis Performed At Patho logist Time Signature WBC 4.9 3.5 - 10.5 05/06/2021 [facility] x10(9)/L 11:54 AM [facility] RBC 5.31 4.32 - 05/06/2021 [facility] 5.72 11:54 AM [facility] x10(12)/L Hemoglobin 16.8 13.5 - 05/06/2021 [facility] 17.5 g/dL 11:54 AM [facility] HCT 47.0 38.8 - 05/06/2021 [facility] 50.0 % 11:54 AM [facility] MCV 88.5 80.0 - 05/06/2021 [facility] 100.0 fL 11:54 AM [facility] MCH 31.6 27.6 - 05/06/2021 [facility] 33.3 pg 11:54 AM [facility] MCHC 35.7 (H) 31.5 - 05/06/2021 [facility] 35.2 g/dL 11:54 AM [facility] RDW 12.2 11.9 - 05/06/2021 [facility] 15.5 % 11:54 AM [facility] Platelets 242 150 - 450 05/06/2021 [facility] x10(9)/L 11:54 AM [facility] Automated NRBC 0 <=0 /100 05/06/2021 [facility] WBC 11:54 AM [facility] Neutrophil 2.8 1.7 - 7.0 05/06/2021 [facility] Absolute 10(9)/L 11:54 AM [facility] Lymphocyte 1.3 1.0 - 4.8 05/06/2021 [facility] Absolute 10(9)/L 11:54 AM [facility] Monocytes 0.6 0.2 - 0.9 05/06/2021 [facility] Absolute 10(9)/L 11:54 AM [facility] Eosinophil 0.1 0.0 - 0.5 05/06/2021 [facility] Absolute 10(9)/L 11:54 AM [facility] Basophil 0.1 0.0 - 0.3 05/06/2021 [facility] Absolute 10(9)/L 11:54 AM [facility] Automated Neut 2.8 10(9)/L 05/06/2021 [facility] Count (Prelim) 11:54 AM [facility] Comment: The Instrument Absolute Neutrop hil Count (IANC) is calculated from the automated differential and may differ sl ightly from the manual differential Absolute Neutrophil Count (IANC), if subsequently reported. Immature Gran % 0.0 0.0 - 0.5 % 05/06/2021 11:54 AM CS T [facility] Specimen Anatomical Collection Method / Collection Time Recei rufus Time (Source) Location / Volume Laterality Blood Lab OP Venipuncture 05/06/2021 11:40 11/0 02/2021 / Unknown AM VICE PRESIDENT CLIENT SERVICES 11:44 AM VICE PRESIDENT CLIENT SERVICES Wyatt Oneil MD LAB_1 Performing Organization Address City/State/ZIP Code Phon e Number [address] [id number] TSH - today (05/06/2021 11:40 AM VICE PRESIDENT CLIENT SERVICES) P athologist Signature TSH, Sensitive 2.52 0.30 - 05/06/2021 [facility] 4.50 12:47 PM [facility] uIU/mL Specimen Anatomical Collection Method / Collection Time Recei rufus Time (Source) Location / Volume Laterality Blood Lab OP Venipuncture 05/06/2021 11:40 11/0 02/2021 / Unknown AM VICE PRESIDENT CLIENT SERVICES 11:44 AM VICE PRESIDENT CLIENT SERVICES Wyatt Oneil MD LAB_1 Performing Organization Address [facility] Phon e Number [address] [phone] Liver Panel (Hepatic Function Panel) - STAT (05/06/2021 11:40 AM VICE PRESIDENT CLIENT SERVICES) P athologist Signature Alkaline 76 40 - 150 05/06/2021 [facility] Phosphatase U/L 12:29 PM [facility] Bilirubin, Total 0.6 0.2 - 1.2 05/06/2021 [facility] mg/dL 12:29 PM [facility] Bilirubin, 0.2 0.0 - 0.5 05/06/2021 [facility] Direct mg/dL 12:29 PM [facility] AST (SGOT) 22 10 - 40 05/06/2021 [facility] U/L 12:29 PM [facility] ALT (SGPT) 27 0 - 55 U/L 05/06/2021 [facility] 12:29 PM [facility] Protein, Total 7.6 6.4 - 8.3 05/06/2021 [facility] g/dL 12:29 PM [facility] Albumin 4.5 3.5 - 5.0 05/06/2021 [facility] g/dL 12:29 PM [facility] Specimen Anatomical Collection Method / Collection Time Recei rufus Time (Source) Location / Volume Laterality Blood Lab OP Venipuncture 05/06/2021 11:40 11/0 02/2021 / Unknown AM VICE PRESIDENT CLIENT SERVICES 11:44 AM VICE PRESIDENT CLIENT SERVICES Wyatt Oneil MD LAB_1 Performing Organization Address City/[facility] Phon e Number [address] [phone] (ABNORMAL) Basic Metabolic Panel - STAT (05/06/2021 11:40 AM VICE PRESIDENT CLIENT SERVICES) P athologist Signature Sodium 139 136 - 145 05/06/2021 [facility] mmol/L 12:29 PM [facility] Potassium 4.0 3.5 - 5.1 05/06/2021 [facility] mmol/L 12:29 PM [facility] Chloride 101 98 - 109 05/06/2021 [facility] mmol/L 12:29 PM [facility] CO2 30 (H) 20 - 29 05/06/2021 [facility] mmol/L 12:29 PM [facility] Anion Gap 8 7 - 16 05/06/2021 [facility] mmol/L 12:29 PM [facility] Calcium 10.0 8.4 - 10.4 05/06/2021 [facility] mg/dL 12:29 PM [facility] BUN 17 7 - 26 05/06/2021 [facility] mg/dL 12:29 PM [facility] Creatinine 0.89 0.73 - 05/06/2021 [facility] 1.18 mg/dL 12:29 PM [facility] GFR, Estimated >60 >60 05/06/2021 [facility] mL/min/1.7 12:29 PM [facility] 3m2 Glucose 100 70 - 100 05/06/2021 [facility] mg/dL 12:29 PM [facility] Comment: The given reference range is fo r the fasting state. Non-fasting reference range for glucose is 70 - 180 mg/dL. Hours Fasting Unknown 05/06/2021 12:29 PM [facility] Specimen Anatomical Collection Method / Collection Time Recei rufus Time (Source) Location / Volume Laterality Blood Lab OP Venipuncture 05/06/2021 11:40 11/0 02/2021 / Unknown AM VICE PRESIDENT CLIENT SERVICES 11:44 AM VICE PRESIDENT CLIENT SERVICES Wyatt Oneil MD LAB_1 Performing Organization Address City/State/ZIP Code Phon e Number [address] [phone] documented in this encounter Visit Diagnoses Diagnosis Hodgkin lymphoma, unspecified, lymph nod es of axilla and upper limb (HRC) documented in this encounter Care Teams Blind Teacher Relationship Specialty Start Date End Date Rob Tillman MD PCP - General Physical Medicine and 08/01/[address] [place] [place] [address] documented as of this encounter
--- OUTSIDE RECORDS SUMMARY | 2022-05-27 10:14 | XMS_ITS | Encounter Summary ---
:1995 Author Organization [employer] Address [address] [place] [address] Care Team Providers Name Role Phone Rob Tillman MD Primary Care Provider Reason for Visit Reason Comments Rachelle Prior Authorization For Medication Encounter Details Date Type Department Care Team Description 07/22/2021 Telephone [facility] Humera Bush Reeve; Tessy baca Psychiatry Authorization For 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 PA for methylphenidate ER (Concerta) 54mg tabs approved from 07/29/21-07/29/22. PACKAGER Tomeka Adams RN - 07/22/2021 1:57 PM CST Rec'd fax that formulary exception/PA is needed for Concerta 54 mg tabs. PA initiated. PACKAGER documented in this encounter Plan of Treatment Upcoming Encounters Date Type Specialty Care Team Description 06/12/2022 Appointment Urology Raj Castro MD [address] [place], [place] [address] (Wo rk) 09/28/2022 Telemedicine Psychiatry Humera Bush MD [address] [place], [place] [address] (Wo rk) documented as of this encounter Visit Diagnoses Not on filedocumented in this encounter Care Teams Plate Stacker Relationship Specialty Start Date End Date Rob Tillman MD PCP - General Physical Medicine and 08/01/19 [address] [facility] [place] [address] documented as of this encounter
--- OUTSIDE RECORDS SUMMARY | 2022-05-27 10:14 | XMS_ITS | Encounter Summary ---
:1995 Author Organization [employer] Address [address], [place] [address] Care Team Providers Name Role Phone Rob Tillman MD Primary Care Provider Reason for Visit Reason Comments Rachelle Medication Side Effects Encounter Details Date Type Department Care Team Description 09/02/2021 Telephone [facility] ry Humera Bush Reeve; Medication Side [address] MD Effects [address] [place] [id number] [phone] Social History Tobacco Use Types Packs/Day Years Used Date Smoking Tobacco: Never Smokeless Tobacco: Never Alcohol Use Standard Drinks/Week Comments Yes 0 (1 standard drink = 0.6 oz pure alcoho l) occasional Sex Assigned at Date Recorded 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 He remains unscheduled. Closing encounter. Stacy Leach - 09/24/2021 11:44 AM CDT Left message to call us back x2 Stacy Leach - 09/22/2021 8:46 AM CDT Left message to call us back regarding scheduling an appointment. Nadine Larson - 09/17/2021 4:47 PM CDT Pt was on the bus at the time of call. Asked pt to call clinic back to schedule. Pt agreed. CA will wait 2 days to see if pt calls back before another attempt. Ghazala Sosa RN - 09/17/2021 4:39 PM CDT Pt has not contacted clinic to schedule future appt. CA's, pls contact pt to schedule an appt with Dr. Bush to discuss medication changes. Thank you. Tomeka Adams RN - 09/04/2021 11:29 AM CST Per our conversation the other day, pt is taking Concerta at 4:30 AM after he wakes up and before hegoes to work. Left detailed VM for pt discussing the need to schedule and suggesting he schedule an apt during a break time at work. Asked him to call the clinic back to schedule. FYI to Dr. Bush. OMER OPERATIONS ASSOCIATE Humera Bush MD - 09/04/2021 11:13 AM CST Please clarify what time he is taking his Concerta. Let him know that he will need to schedule an appointment to discuss medication changes. I understand his work schedule, is it perhaps possible to have the appointment during 1 of his breaks at work Humera Bush MD 09/04/2021 11:14 AM OMER OPERATIONS ASSOCIATE Tomeka Adams RN - 09/04/2021 10:25 AM CST Spoke w/ pt who reports that he is going to earlier as discussed a couple of days ago. Has been going to bed after he takes his meds at 7:00 PM and gets up at 4 AM for work. Falls asleep immediately and sleeps through the night and even sometimes sleeps through his alarm. Is finding himself nodding off throughout the day at work. Is due for an apt (last seen February 2021), but has declined to schedule due to his work hours. Discussed that his meds have not been adjusted in quite some time so notsure it is a medication issue, but will pass along update to Dr. Bush to get any other advice/recommendations. Routed to Dr. Bush to review and advise. Ayaka Cobb I - 09/04/2021 9:23 AM CST Medications - Side Effects / Symptoms Describe a brief summary of your symptoms: Pt describing same symptoms. Patient is nodding off for a couple of seconds then jerking awake. It has been getting worse in the last couple of weeks and in the last couple of days. Increased caffeine usage does not help. Patient refused to schedule appt with Dr. Bush. He is only available after 4:30 M-F or weekends. Hegets off work at 3:30 and said he does not know if he could do an appt before his hour drive home. [Extractor Operator Solvent Process: If the pt is calling after 3:30pm, was the caller reminded that their call may not be returned until the following day: No Share with caller: If we are not able to get back to you by the end of the day and your symptoms worsen, please contact the Careline at [phone] OR at .] If a prescription is needed, where can we send it? Confirmed. Is it okay to leave a detailed message on your voicemail? No Is there anything else I can help you with today? no OMER OPERATIONS ASSOCIATE Humera Bush MD - 09/02/2021 4:00 PM CST Noted, agree with the plan Humera Bush MD 09/02/2021 4:00 PM OMER OPERATIONS ASSOCIATE Tomeka Adams RN - 09/02/2021 3:49 PM CST Spoke w/ pt who reports that he has been having difficulty staying awake at his new job that he started in June. 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 He goes to bed between 9 and 10 PM and sleeps well through the night, but has to get up at 4 AM for his job. He takes Concerta and Zoloft at 4:30 AM, and then takes his Abilify in the evening hours. Has been drinking a lot of caffeine which is not helpful. Discussed him going to sleep earlier to get a full night of rest as he is only getting 6 hours of sleep nightly if he goes to bed at 10 PM. States there have been nights where he has gone to bed earlier and he seemed to be less tired the next day, so encouraged him to continue going to bed ear lier. Will forward update to Dr. Bush to advise if any further suggestions/recommendations. Stacy Rose - 09/02/2021 3:07 PM CST Medications - Side Effects / Symptoms Describe a brief summary of your symptoms: Fly said he is having a lot of trouble staying awake at work. Because of the sleep issues he hasbeen drinking a lot of caffeine and that is causing issues also. He is wondering what Dr. Bush thinks he should do? [Extractor Operator Solvent Process: If the pt is calling after 3:30pm, was the caller reminded that their call may not be returned until the following day: Yes Share with caller: If we are not able to get back to you by the end of the day and your symptoms worsen, please contact the Careline at [phone] OR at .] If a prescription is needed, where can we send it? No: [facility] [Extractor Operator Solvent Process: Please add the requested pharmacy to 'Meds & Orders' ] Is it okay to leave a detailed message on your voicemail? Yes Is there anything else I can help you with today? no OMER OPERATIONS ASSOCIATE documented in this encounter Plan of Treatment Upcoming Encounters Date Type Specialty Care Team Description 06/12/2022 Appointment Urology Raj Castro MD [address] [place], [place] [address] (Wo rk) 09/28/2022 Telemedicine Psychiatry Humera Bush MD [address] [place], [place] [address] (Wo rk) documented as of this encounter Visit Diagnoses Not on filedocumented in this encounter Care Teams Frameman Relationship Specialty Start Date End Date Rob Tillman MD PCP - General Physical Medicine and 08/01/19 [address] [facility] [place] [place] [address] documented as of this encounter
--- OUTSIDE RECORDS SUMMARY | 2022-05-27 10:14 | XMS_ITS | Encounter Summary ---
:1995 Author Organization [employer] Address [address] [place] [address] Care Team Providers Name Role Phone Rob Tillman MD Primary Care Provider Encounter Details Date Type Department Care Team Description 03/07/2021 Telemedicine [facility]era Bush[facility] inattentive type (Primary Dx); Psychiatry Nonverbal learning disorder; 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 This visit was conducted via Video Location of clinician: clinic Location of patient: [...] facility-administered medications for this visit. Chief Complaint: lFy is seen for follow-up and tells me that his ???mom told him to schedule.?? Current History: Fly is a 25-year-old with nonverbal learning disorder, ADHD, anxiety and spina bifida. He was seen just 1 week ago and was stable and I suggested he return in 3-4 months. He tells me today that he has no idea why he has this appointment but his ???mom told him to schedule.?? Since that talk to him last he has moved into an independent living situation and now is in his own apartment. He has an ILS worker who comes in several times a week as well as support through vocational rehab. Fly spending essentially his entire day online. He does not get out and socialize except when heworks. He is working 5 days a week for 4 hours at a time but does not have any social relationship with people that he works with. He tells me that work is ???boring, ???but ???it gets me out. He continues to see his therapist every other and did take my advice and schedule some more regular appointments as he not seeing him regularly over the summer months There is no collaborative information available from mom regarding concerns or difficulties Medical Review of Systems: There were no vitals filed for this visit. no side effects and no issues with pain Labs:No indication for labs at this time. AIMS/DISCUS:N/A Chemical Use: none Social History Living Situation: own apartment, living independently Activities: has few friends, works at [employer] 20 hours per week, and Wednesday Education: N/A Therapy: Supportive Other Services: [facility], Vocational rehab Mental Status Exam: Fly is pleasant and interactive, generally appropriate. He is seated in front of his computer and has been playing video games. Affect is superficially bright which is typical for him any tells me his mood is ???fine.?? Speech is generally unremarkable except that he is quite repetitive and struggles with open-ended questions, he is quite concrete and his comments and does not give any details unless prodded to do so. Even then he provides minimal information. His interaction overall is somewhat socially immature. Cognitively he has very poor abstract reasoning he is reasonably focused but concrete. Content to the interviews about his moved to his apartment. His thought process is organized but perseverative. Insight and judgment have limitations. Assessment: Fly indicates today he has no idea why he is at this appointment except that his momtold him to schedule. We talked about the difference between my role in his care and that of his therapist and his other community supports. Fly needs to have increased community contact in work onmore structure to his day socialization. Can do that with his ILS worker, his parents and his therapist. Feels like his medications are stable and do not need to be changed. I talked about support services that would be available in the community in discuss some organizations where he might get more social support. If things remain stable pharmacologically he can return to see me in 6 months time. I let him know that if his mom has specific concerns she is always welcome to call the clinic. Risk Assessment: The patient is at low risk for aggression. Diagnosis: ADHD, nonverbal learning disorder, anxiety disorder not otherwise specified, spina bifida Plan: Continue current meds with no changes No Medications ordered this encounter Continue with current psychotherapy Continue all current social and educational plans Discussed healthy eating and exercise Appointment in: 6 months, or earlier if needed Visit Summary: complex evaluation and medication management. Humera Bush MD This note created using speech-recognition software and may contain unintended word substitutions. documented in this encounter Plan of Treatment Upcoming Encounters Date Type Specialty Care Team Description 06/12/2022 Appointment Urology Raj Castro MD [address] [place], [place] [address] (Wo rk) 09/28/2022 Telemedicine Psychiatry Humera Bush MD [address] [place], [place] [address] (Wo rk) documented as of this encounter Visit Diagnoses Diagnosis ADHD (attention deficit hyperactivity di sorder), inattentive type ([facility]) - Primary Attention deficit disorder with hyperact ivity Nonverbal learning disorder Major depressive disorder, single episod e, severe ([facility]) Major depressive disorder, single episod e, severe, without mention of psychotic behavior documented in this encounter Care Teams Tailings Man Relationship Specialty Start Date End Date Rob Tillman MD PCP - General Physical Medicine and 08/01/19 [address] [facility] [place] [address] documented as of this encounter
--- OUTSIDE RECORDS SUMMARY | 2022-05-27 10:14 | XMS_ITS | Encounter Summary ---
:1995 Author Organization [facility] Address [address] [place] [address] Care Team Providers Name Role Phone Rob Tillman MD Primary Care Provider Reason for Visit Reason Comments Dme Supply [facility]- Letter/ Certifica te of Medical Necessity [facility] Encounter Details Date Type Department Care Team Description 02/27/2021 Telephone [facility] Rob Tillman Dme Supply ([facility]- [facility] MD Sophie Letter/ Certificate of Physical Medicine [address] Medical Necessity [address] 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 Rob Tillman MD 03/12/2021, 3:17 PM Beverley Oliver - 03/04/2021 2:20 PM CDT Printed and placed on providers desk aKruna Woods RN - 02/27/2021 12:05 PM CDT TELESCOPE MAINTENANCE: please print Sign Hanger Supervisor Letter/Certificate of Medial Necessity form and place in provider in box. Karuna Woods RN Jadon Chua - 02/27/2021 11:28 AM CDT Images from the original note were not included. Rec'd fax from [facility] with RX- Letter/ Certificate of Medical Necessity to [facility] Fax placed in Providers RightFax Folder Jadon Chua 02/27/2021, 11:29 AM documented in this encounter Plan of Treatment Upcoming Encounters Date Type Specialty Care Team Description 06/12/2022 Appointment Urology Raj Castro MD [address] [place], [place] [address] (Wo rk) 09/28/2022 Telemedicine Psychiatry Humera Bush MD [address] [place], [place] [address] (Wo rk) documented as of this encounter Visit Diagnoses Not on filedocumented in this encounter Care Teams Space Officer Relationship Specialty Start Date End Date Rob Tillman MD PCP - General Physical Medicine and 08/01/19 [address] [place] [address] documented as of this encounter
--- OUTSIDE RECORDS SUMMARY | 2022-05-27 10:14 | XMS_ITS | Encounter Summary ---
:1995 Author Organization [facility] Address [address] [place] [address] Care Team Providers Name Role Phone Rob Tillman MD Primary Care Provider Encounter Details Date Type Department Care Team Description 05/06/2021 Office Visit [facility] Cancer Wyatt Oneil lymphoma, unspecified, lymph nodes of axilla and upper limb (HRC) (Primary Dx); [facility], unspecified hydrocephalus presence, unspecified spinal region (HRC) [address] [address] [phone] Social History Tobacco Use Types Packs/Day Years Used Date Smoking Tobacco: Never Smokeless Tobacco: Never Alcohol Use Standard Drinks/Week Comments Yes 0 (1 standard drink = 0.6 oz pure alcoho l) occasional Sex Assigned at Date Recorded Male 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 documented as of this encounter Last Filed Vital Signs Vital Sign Reading Time Taken Comments Blood Pressure 126/80 05/06/2021 10:44 AM YOUTH DIRECTOR Pulse 94 05/06/2021 10:44 AM YOUTH DIRECTOR Temperature 36.7 ??C (98.1 ??F) 05/06/2021 10:44 AM YOUTH DIRECTOR Respiratory Rate 20 05/06/2021 10:44 AM YOUTH DIRECTOR Oxygen Saturation 97% 05/06/2021 10:44 AM YOUTH DIRECTOR Inhaled Oxygen Concentration - - Weight 57.2 kg (126 lb 1.7 oz) 05/06/2021 10:44 AM YOUTH DIRECTOR Height - - Body Mass Index 23.83 12/18/2020 2:08 PM CDT documented in this encounter Patient Instructions Patient InstructionsHuWyatt leon MD - 05/06/2021 10:20 AM CST DIAGNOSES: 1. 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 2. Mild neutropenia, persistent, following prior chemotherapy. ?? TREATMENT: Four months of ABVE-PC chemotherapy followed by 2100 cGy of radiation to the chest and mediastinum completed June 2013. PLAN: Lab work today Send copy of my note to [place] [address] FAX: [phone] Return 1 year Wyatt Oneil MD - Lab will be draw - Follow-up appointment with Dr. Oneil scheduled on 05/06/22 @3:50pm at [facility] [place]. Magdy Miugel 11:25 AM 05/06/21 REMINDER! If you are not feeling well please call before you come to the clinic. H DIRECTOR documented in this encounter Progress Notes Wyatt Oneil MD - 05/06/2021 10:20 AM CST This office note has been dictated. [id number] Wyatt Oneil MD H DIRECTOR Vani Oneal RN - 05/06/2021 10:20 AM CST Completed per provider's orders. QOPI: Is patient starting new chemotherapy medications today or in the near future? 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 2.Mild neutropenia, persistent following prior chemotherapy. TREATMENT: 1. 4 months of ABVE-PC chemotherapy followed by 2100 cGy of radiation therapy to the chest and mediastinum, completed June 2013. SUBJECTIVE: The patient and his mother return for followup of stage II nodular sclerosing Hodgkin lymphoma. He is a 25-year-old man, disabled from spina bifida, who is now 7-1/2 years status post completion of therapy. He has had no clinical evidence of recurrence and now is in a long-term monitoring phase for survivorship. He has had no clinical evidence of disease recurrence. For the most part, he feels well. He is now working at [employer] and has gotten his own apartment in [place]. 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 For the most part, he feels well. He has had occasional night sweats. He has had no pain. He had an inclusion cyst removed from beneath his chin this past year. There has been no other significant medical issues. He has not seen his facility rehab director, Dr. Tillman, in the past year and has not seen a primary care provider. He gets his healthcare through [facility] Of note, is his mother was recently diagnosed with Matthieu's thyroiditis. PHYSICAL EXAMINATION: HEENT: There is no conjunctival pallor or scleral icterus. Neck: There is no cervical or axillary adenopathy. Lungs: Clear. Heart: Regular. Extremities: He has bilateral knee braces in place. He has had his Pfizer COVID vaccine. ASSESSMENT: 7 years following combined modality therapy for Hodgkin's lymphoma, currently in remission. PLAN: He will have routine labs including CBC, BMP, liver function tests, and TSH today. I suggested he establish care with a primary care physician. Return to clinic in 1 year with repeat labs. WYATT ONEIL MD [facility] /[id number] cc:[address] [address] H DIRECTOR documented in this encounter Plan of Treatment Upcoming Encounters Date Type Specialty Care Team Description 06/12/2022 Appointment Urology Raj Castro MD [address] [place], [place] [address] (Wo rk) 09/28/2022 Telemedicine Psychiatry Humera Bush MD [address] [place] [place], [place] [address] (Wo rk) documented as of this encounter Results TSH - today (05/06/2021 11:40 AM YOUTH DIRECTOR) athologist Signature TSH, Sensitive 2.52 0.30 - 05/06/2021 [facility] 4.50 12:47 PM YOU[facility] DIRECTOR [facility]OSPITAL uIU/mL Specimen Anatomical Collection Method / Collection Time Recei rufus Time (Source) Location / Volume Laterality Blood Lab OP Venipuncture 05/06/2021 11:40 11/0 02/2021 / Unknown AM YOUTH DIRECTOR 11:44 AM YOUTH DIRECTOR Wyatt Oneil MD LAB_1 Performing Organization Address City/State/ZIP Code Phon e Number [address] [address] Liver Panel (Hepatic Function Panel) - STAT (05/06/2021 11:40 AM YOUTH DIRECTOR) athologist Signature Alkaline 76 40 - 150 05/06/2021 [facility] Phosphatase U/L 12:29 PM [facility] DIRECTOR [facility]OSPITAL Bilirubin, Total 0.6 0.2 - 1.2 05/06/2021 [facility] mg/dL 12:29 PM [facility] Bilirubin, 0.2 0.0 - 0.5 05/06/2021 [facility] Direct mg/dL 12:29 PM [facility] AST (SGOT) 22 10 - 40 05/06/2021 [facility] U/L 12:29 PM [facility] ALT (SGPT) 27 0 - 55 U/L 05/06/2021 [facility] 12:29 PM [facility] Protein, Total 7.6 6.4 - 8.3 05/06/2021 [facility] g/dL 12:29 PM [facility] Albumin 4.5 3.5 - 5.0 05/06/2021 [facility] g/dL 12:29 PM [facility] Specimen Anatomical Collection Method / Collection Time Recei rufus Time (Source) Location / Volume Laterality Blood Lab OP Venipuncture 05/06/2021 11:40 11/0 02/2021 / Unknown AM YOUTH DIRECTOR 11:44 AM YOUTH DIRECTOR Wyatt Oneil MD LAB_1 Performing Organization Address City/State/ZIP Code Phon e Number [address] [address] (ABNORMAL) Basic Metabolic Panel - STAT (05/06/2021 11:40 AM YOUTH DIRECTOR) P athologist Signature Sodium 139 136 - 145 05/06/2021 [facility] mmol/L 12:29 PM [facility] Potassium 4.0 3.5 - 5.1 05/06/2021 [facility] mmol/L 12:29 PM [facility] Chloride 101 98 - 109 05/06/2021 [facility] mmol/L 12:29 PM [facility] CO2 30 (H) 20 - 29 05/06/2021 [facility] mmol/L 12:29 PM [facility] Anion Gap 8 7 - 16 05/06/2021 [facility] mmol/L 12:29 PM [facility] Calcium 10.0 8.4 - 10.4 05/06/2021 [facility] mg/dL 12:29 PM [facility] BUN 17 7 - 26 05/06/2021 [facility] mg/dL 12:29 PM [facility] Creatinine 0.89 0.73 - 05/06/2021 [facility] 1.18 mg/dL 12:29 PM [facility] GFR, Estimated >60 >60 05/06/2021 [facility] mL/min/1.7 12:29 PM [facility] 3m2 Glucose 100 70 - 100 05/06/2021 [facility] mg/dL 12:29 PM [facility] Comment: The given reference range is fo r the fasting state. Non-fasting reference range for glucose is 70 - 180 mg/dL. Hours Fasting Unknown 05/06/2021 12:29 PM YOUTH DIRECTOR [facility] Specimen Anatomical Collection Method / Collection Time Recei rufus Time (Source) Location / Volume Laterality Blood Lab OP Venipuncture 05/06/2021 11:40 11/0 02/2021 / Unknown AM YOUTH DIRECTOR 11:44 AM YOUTH DIRECTOR Wyatt Oneil MD LAB_1 Performing Organization Address City/State/ZIP Code Phon e Number [address] [address] documented in this encounter Visit Diagnoses Diagnosis Hodgkin lymphoma, unspecified, lymph nod es of axilla and upper limb (HRC) - Primary Spina bifida, unspecified hydrocephalus presence, unspecified spinal region (HRC) documented in this encounter Care Teams Railcar Switchman Relationship Specialty Start Date End Date Rob Tillman MD PCP - General Physical Medicine and 08/01/19 [facility] [address] Rehabilitation [place], [place] [phone] documented as of this encounter
--- OUTSIDE RECORDS SUMMARY | 2022-05-27 10:14 | XMS_ITS | Encounter Summary ---
:1995 Author Organization [facility] Address [address] [address] Care Team Providers Name Role Phone Rob Tillman MD Primary Care Provider Reason for Visit Reason Onset Date Comments Reeve 03/06/2021 Medication Request 03/06/2021 concerta Encounter Details Date Type Department Care Team Description 03/06/2021 Refill [facility] Psychiat ry Humera Bush Reeve; Medication [address] MD Request (concerta) [address] [place] [id number] [phone] Social History Tobacco Use Types Packs/Day Years Used Date Smoking Tobacco: Never Smokeless Tobacco: Never Alcohol Use Standard Drinks/Week Comments Yes 0 (1 standard drink = 0.6 oz pure alcoho l) occasional Sex Assigned at Date Recorded 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 Bryan Reis RN - 03/07/2021 9:00 AM CDT Refill on hold as patient has appt today, 03/07/2021 10:30 am. RN will address request after appt. Anabel Funk - 03/06/2021 8:24 AM CDT Knows he has appt tomorrow, but wd like rx sent today. documented in this encounter Plan of Treatment Upcoming Encounters Date Type Specialty Care Team Description 06/12/2022 Appointment Urology Raj Castro MD [address] [place], [place] [address] (Wo rk) 09/28/2022 Telemedicine Psychiatry Humera Bush MD [address] [place], [place] [address] (Wo rk) documented as of this encounter Visit Diagnoses Not on filedocumented in this encounter Care Teams Edger Hand Relationship Specialty Start Date End Date Rob Tillman MD PCP - General Physical Medicine and 08/01/19 [address] [facility] [place] [place] [address] documented as of this encounter
--- OUTSIDE RECORDS SUMMARY | 2022-05-27 10:14 | XMS_ITS | Encounter Summary ---
:1995 Author Organization [facility] Address [address] [place] [address] Care Team Providers Name Role Phone Rob Tillman MD Primary Care Provider Reason for Visit Reason Onset Date Comments Refill 07/17/2021 Encounter Details Date Type Department Care Team Description 07/17/2021 Refill [facility] [place] [facility] Psychiat Humera Bush MD Refill 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 GE GANG WEIGHER Lisa Chavez - 07/17/2021 12:03 PM CST Pt aware appt is needed for August, will call back to schedule when available. Patient out of meds. GE GANG WEIGHER documented in this encounter Plan of Treatment Upcoming Encounters Date Type Specialty Care Team Description 06/12/2022 Appointment Urology Raj Castro MD [address] [place], [place] [address] (Wo rk) 09/28/2022 Telemedicine Psychiatry Humera Bush MD [address] [place], [place] [address] (Wo rk) documented as of this encounter Visit Diagnoses Not on filedocumented in this encounter Care Teams Leather Roller Relationship Specialty Start Date End Date Rob Tillman MD PCP - General Physical Medicine and 08/01/19 [address] [facility] [place] [address] documented as of this encounter
--- OUTSIDE RECORDS SUMMARY | 2022-05-27 10:14 | XMS_ITS | Encounter Summary ---
:1995 Author Organization [facility] Address [address], [place] [address] Care Team Providers Name Role Phone Rob Tillman MD Primary Care Provider Reason for Visit Reason Comments Dme Supply [facility] Encounter Details Date Type Department Care Team Description 08/12/2021 Telephone [facility] Rob Tillman Dme Sup ply ([facility]) [facility] Physical Medicine [address] 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 Rob Tillman MD 08/12/2021, 4:06 PM INSPECTOR Ashanti Sethi - 08/12/2021 10:06 AM CST Printed, filled out if appropriate, given to the Doctor to view/sign. BERTO Velázquez INSPECTOR Abigail Willett - 08/12/2021 9:44 AM CST Images from the original note were not included. Cd fax from [facility] signature Please see the providers right fax folder to review the fax for this TE. Abigail Willett 08/12/2021, 9:44 AM INSPECTOR documented in this encounter Plan of Treatment Upcoming Encounters Date Type Specialty Care Team Description 06/12/2022 Appointment Urology Raj Castro MD [address] [place], [place] [address] (Wo rk) 09/28/2022 Telemedicine Psychiatry Humera Bush MD [address] [place], [place] [address] (Wo rk) documented as of this encounter Visit Diagnoses Not on filedocumented in this encounter Care Teams Pediatric Physiatrist Relationship Specialty Start Date End Date Rob Tillman MD PCP - General Physical Medicine and 08/01/19 [address] [facility] [place] [address] documented as of this encounter
--- OUTSIDE RECORDS SUMMARY | 2022-05-27 10:14 | XMS_ITS | Encounter Summary ---
:1995 Author Organization [facility] Address [address] [place] [address] Care Team Providers Name Role Phone Rob Tillman MD Primary Care Provider Encounter Details Date Type Department Care Team Description 02/20/2021 Telemedicine [facility] Humera Bush, [facility] inattentive type (Primary Dx); Psychiatry Nonverbal learning disorder; 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 Reason for Visit: Routine follow-up for psychiatric medication management ?? I discussed with the patient/parent that this visit is a telehealth visit that will be billed to their insurance.??Reviewed potential benefits, risks and confidentiality of telehealth visits.?? Confirmed patients' current location and contact information. Developed a safety plan to be used in the event of an emergency or safety concerns. Made contingency plan in the event of technical problems. Explained that the appropriateness of telehealth visits is determined by the provider and that patient mayneed to be seen in clinic in the future. ?? This visit was conducted via Video Location of clinician: Clinic Location of patient: Home Chief Complaint: Fly is seen in follow up today and reports things are mostly boring Current History: Fly is a 25 year old young man with ADHD, anxiety, nonverbal learning disorder and spina bifida. At the last visit on 12/13/20, he was spending too much of his time playing video games and felt it made him irritable. Today he reports that his life is rather boring. He feels he does the same few things over and over (eat, sleep, play video games, and work). He has been working 10-20 hours a week, which the hours worked vary from week to week. He would like to work more, in orderto get out of the house, and earn more money. His dad briefly participates in the visit, and says that Fly needs to be responsible for paying some bills, so working more would be nice. Fly saysthat in general, when he is not working, he is playing video games. He shares that he does not really want to socialize, outside of video games. He tells me that he has not been seeing his therapist enough, and needs to see them more often. Later on in the visit, he states that he is going to get his hair cut, but also realizes he has a therapy appointment at 2:00 p.m. today. We told him that he needs to attend his therapy appointment and re-schedule the haircut. He states his mood as ???melancholy?? , and feels that way because of how mundane he perceives his current routines. Medical Review of Systems: No side effects and no issues with pain. Did get the COVID Vaccine in October. Labs: Up to date. AIMS/DISCUS: Patient is seen on camera and no movements of concern are noted. ?? 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 His speech is significant and that he really is quite perseverative, struggles with any open-ended abstract questions, goes back to the same comments multiple times., and his motor exam is consistent with spina bifida. He states his mood as ???melancholy?? , but his affect is euthymic. He is socially immature. He has very poor abstract thinking, and lacks the ability to follow through. The content of the interview is about therapy, and adding more structure to his life. His thought process is very concrete, and he has a poor memory. His insight and judgment are limited, but generally adequate. Assessment: Fly is a 25-year-old young man with spina bifida and associated learning issues who is seen today in follow-up. His mental health appears stable, and the medications continue to be helpful. However, he is frustrated with the relationship he has with his parents, and he feels he bothersthem. We talked about ways he could add some extra structure in his life, and improve the relationship with his parents. He reports that he is still spending a lot of his time playing video games, but has not been consistently going to therapy. He would benefit from consistently going to therapy, and also involving his parents to an extent during his therapy visits, in order to improve communication b etween them. Risk Assessment: The patient is at low risk for aggression. ?? Diagnosis:ADHD, non verbal learning disorder, anxiety NOS, spina bifida Plan: Continue current meds with no changes Continue with current psychotherapy Discussed need to implement family and behavioral therapy interventions Patient agrees with the treatment plan Discussed issues related to excessive electronics use Discussed transition to adulthood issues Appointment in: 3-4 months Visit Summary: Complex evaluation and medication management. Kevan Mclaughlin DO, PGY3 02/20/21 12:23 PM Pager: [phone] This note created using speech-recognition software and may contain unintended word substitutions. I was present by live videoconference with the resident on 02/20/21 during the duran portions of the service and participated in the management of the service. I have reviewed and verified the documentation. I have discussed the care with the resident, and agree with the findings and plan of care as documented in the resident's note. Humera Bush MD 02/20/2021 4:39 PM documented in this encounter Plan of Treatment Upcoming Encounters Date Type Specialty Care Team Description 06/12/2022 Appointment Urology Raj Castro MD [address] [place], [place] [address] (Wo rk) 09/28/2022 Telemedicine Psychiatry Humera Bush MD [address] [place], [place] [address] (Wo rk) documented as [...] unspecified documented in this encounter Care Teams Litharge Supervisor Relationship Specialty Start Date End Date Rob Tillman MD PCP - General Physical Medicine and 08/01/19 [address] [facility] [place] [address] documented as of this encounter
--- OUTSIDE RECORDS SUMMARY | 2022-05-27 10:15 | XMS_ITS | Encounter Summary ---
:1995 Author Organization [employer] Address [address] [place] [address] Care Team Providers Name Role Phone Rob Tillman MD Primary Care Provider Reason for Visit Reason Comments Rachelle Prior Authorization For Medication wellbutrin Encounter Details Date Type Department Care Team Description 10/22/2020 Telephone [facility] Humera Bush Reeve; Tessy baca Psychiatry Authorization For 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 Approved ffrom 09/22/20-10/22/21. Pharmacy notified and will notify pt. Tomeka Adams RN 10/23/2020, 3:51 PM Tomeka Adams RN - 10/22/2020 3:38 PM CDT PA complete via Cover My Meds. Awaiting determination. Tomeka Adams RN 10/22/2020, 3:38 PM Tomeka Adams RN - 10/22/2020 3:25 PM CDT Pharmacy confirms that PA is needed through pt's [employer] insurance. Phone number for [employer] - [phone] PA initiated. Tomeka Adams RN 10/22/2020, 3:28 PM Karuna Church - 10/22/2020 3:09 PM CDT PA received scanned to RN/STREET LIGHT CLEANER. documented in this encounter Plan of Treatment Upcoming Encounters Date Type Specialty Care Team Description 06/12/2022 Appointment Urology Raj Castro MD [address] [place], [place] [address] (Wo rk) 09/28/2022 Telemedicine Psychiatry Humera Bush MD [address] [place], [place] [address] (Wo rk) documented as of this encounter Visit Diagnoses Not on filedocumented in this encounter Care Teams Compressor Operator Relationship Specialty Start Date End Date Rob Tillman MD PCP - General Physical Medicine and 08/01/19 [address] [facility] [place] [address] documented as of this encounter
--- OUTSIDE RECORDS SUMMARY | 2022-05-27 10:15 | XMS_ITS | Encounter Summary ---
:1995 Author Organization [employer] Address [address], [place] [address] Care Team Providers Name Role Phone Rob Tillman MD Primary Care Provider Reason for Visit Reason Comments Rachelle Medication Questions Encounter Details Date Type Department Care Team Description 09/20/2020 Telephone [facility] ry Humera Bush Reeve; Medication 5 Fernanda Ellington MD Questions [address] [place] [address] [phone] Social History Tobacco Use Types Packs/Day Years Used Date Smoking Tobacco: Never Smokeless Tobacco: Never Alcohol Use Standard Drinks/Week Comments Yes 0 (1 standard drink = 0.6 oz pure alcoho l) occasional Sex Assigned at Date Recorded 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 Lisa Chavez - 09/20/2020 3:59 PM CDT Discussed with Director Of Occupational Therapy Yuliana. Referred patient to speak with [facility]. Tomeka Adams RN - 09/20/2020 3:32 PM CDT Please contact pt and clarify what he is needing. Is patient requesting refills on his meds to be sent to [facility] at this time? If so, I am happy to provide refills, but RN unable to answer questions about billing and outstanding balance. Please call pt back and direct him to contact billing regarding his outstanding balance. Tomeka Adams RN 09/20/2020, 3:36 PM Lisa Chavez - 09/20/2020 3:16 PM CDT [facility] - Medications - Med Change / Question Name of medication(s): unsure What is your question or concern? Family/patient has questions about prescriptions and billing. Needs to use [facility] going forward due to insurance but has an outstanding balance. Is it okay to leave a detailed message on your voicemail? Yes [Sword Swallower: If the pt is calling after 3:30pm, was the caller reminded that their call may not be returned until the following day: No] If a prescription is needed, which pharmacy would you like this filled at? No: [Sword Swallower: Please add the requested pharmacy to 'Meds & Orders' ] Is there anything else I can help you with today? no Lisa Chavez documented in this encounter Plan of Treatment Upcoming Encounters Date Type Specialty Care Team Description 06/12/2022 Appointment Urology Raj Castro MD [address] [place] [phone] (Wo rk) 09/28/2022 Telemedicine Psychiatry Humera Bush MD [address] [place] [phone] (Wo rk) documented as of this encounter Visit Diagnoses Not on filedocumented in this encounter Care Teams Flight Line Service Attendant Relationship Specialty Start Date End Date Rob Tillman MD PCP - General Physical Medicine and 08/01/[address] [place] [address] [place] [address] documented as of this encounter
--- OUTSIDE RECORDS SUMMARY | 2022-05-27 10:15 | XMS_ITS | Encounter Summary ---
:1995 Author Organization [employer] Address [address] [place] [address] Care Team Providers Name Role Phone Rob Tillman MD Primary Care Provider Reason for Visit Reason Comments Rachelle Medication Request Encounter Details Date Type Department Care Team Description 03/15/2020 Telephone [facility] Humera Bush Reeve; Medication [address] 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 Pt lost a 90 d/s of Zoloft. They have been notified that insurance may not cover and they may need to pay out of pocket. Contacted pharmacy to discuss situation. Stated it went through insurance w/out any issues and will fill for pt. Updated pt. Was understanding. Tomeka Adams RN 03/15/2020, 11:34 AM Tomeka Adams RN - 03/15/2020 11:23 AM CDT ----- Message from Humera Bush MD sent at 03/15/2020 11:17 AM CDT ----- Please call pharmacy and explain early refill is being requested due to losing meds Humera Bush MD 03/15/2020 11:22 AM documented in this encounter Plan of Treatment Upcoming Encounters Date Type Specialty Care Team Description 06/12/2022 Appointment Urology Raj Castro MD [address] [place], [place] [address] (Wo rk) 09/28/2022 Telemedicine Psychiatry Humera Bush MD [address] [place], [place] [address] (Wo rk) documented as of this encounter Visit Diagnoses Not on filedocumented in this encounter Care Teams Assembly Machine Tender Relationship Specialty Start Date End Date Rob Tillman MD PCP - General Physical Medicine and 08/01/19 [address] [facility] [place] [address] documented as of this encounter
--- OUTSIDE RECORDS SUMMARY | 2022-05-27 10:15 | XMS_ITS | Encounter Summary ---
:1995 Author Organization [facility] Address [address] [place] [address] Care Team Providers Name Role Phone Rob Tillman MD Primary Care Provider Reason for Visit Reason Comments Video Visit Spina bifida without hydroce phalus, unspecified spinal region Encounter Details Date Type Department Care Team Description 02/09/2020 Telemedicine [facility] Rob Tillman Spina bifi da without hydrocephalus, unspecified spinal region (HRC) (Primary Dx); [facility] MD Sophie Neurogenic bladder; Physical Medicine [address] Neurogenic bowel; [address] 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 Video Visit Spina bifida without hydrocephalus, unspecified spinal region History of Present Illness: I had the pleasure of seeing Mr. Fly Moran on 03/28/2018 in the physical medicine and rehabilitation outpatient clinic in follow-up with regards to spina bifida. ?? Fly Moran is a 22 y.o. old male with a hx of spina bifida . Pt was referred to OP SCI clinic from Hope Cook at the [facility] for general SCI care and management. [...] is insensate in theBLE distally. Interval Hx: Video visit Since last being seen, patient is been doing well. Memory is stable. Continues to follow with consulting providers addressing his sleep apnea. Patient also got his wheelchair in the interim and states that he has had a great reduction in his back pain. Other issues discussed were: Neurogenic Bowel: normal, full sensation, no accidents Neurogenic Bladder: voids with high PVR's, following with urology as needed Spasticity: none MSK Pain: minimal pain since being in new chair Neuropathic pain: none at this time Skin: had some skin breakdown between toes but this is improving. Mother keep close tabs on this andhelps with any wound care Sexuality: not discussed Mood: described as darrel. Mom states that he is not driven these days; frustrated about not having access disability housing, started a DBT program, benefiting ?? DME/Therapies/Function: Therapies: not in any formal therapies, working on HEP Equipment: MWC, [place] crutches, got new WC and now no pain ADL's: independent Past Medical History: Spina bifida astma Myelomeningocele Depression Anxiety ADHD Hodgkin's Disease ? Family History: Non-contributory ?? Social history: He is currently in college ([employer]?) studying IT. The patient lives with his parents. He reports thathe has never smoked. He has never used smokeless tobacco. Medications: Current Outpatient Medications Medication Sig Note Dispense Refill ??? ARIPiprazole (ABILIFY) 5 MG tablet Take 1 Tablet by mouth daily. 90 Tablet 1 ??? Carnitine 250 MG 500 mg Codeine daily. ??? cetirizine (ZYRTEC) 10 MG tablet Take 1 Tablet by mouth. 06/30/2018: PRN ??? cholecalciferol (VITAMIN D3) 1000 units tablet Take 1,000 Units by mouth daily. ??? methylphenidate (CONCERTA) 54 MG controlled release tablet Take 1 Tablet by mouth daily. Hard script given, e script not working 90 Tablet 0 ??? Multiple Vitamins-Minerals (CENTRUM [...] ? Molds & Smuts Other, see comments Voss mold- Respiratory Distress ??? Other Swelling Spider Venom: Severe local swelling Physical Exam: General: Seated in wheelchair comfortably Respiratory: Breathing is nonlabored Cognition: Superficially intact, able to engage in conversation appropriately and answer questions Labs: Hemoglobin Date Value 04/20/2019 17.5 g/dL 04/21/2018 15.9 g/dl WBC Date Value 04/20/2019 4.2 x10(9)/L 04/21/2018 5.1 k/ul BUN (mg/dl) Date Value 04/21/2018 14 Sodium (mmol/L) Date Value 04/21/2018 140 Sodium, WB (mmol/L) Date Value 04/20/2019 139 Potassium (mmol/L) Date Value 04/21/2018 3.5 Potassium, Whole Blood (mmol/L) Date Value 04/20/2019 3.9 Chloride (mmol/L) Date Value 04/21/2018 102 Glucose (mg/dl) Date Value 04/21/2018 82 Creatinine (mg/dl) Date Value 04/21/2018 0.93 Creatinine Whole Blood (mg/dL) Date Value 04/20/2019 0.9 GFR, Estimated (ml/min/1.73m2) Date Value 04/21/2018 >60 GFR, Est., If Black (ml/min/1.73m2) Date Value 04/21/2018 >60 Calcium Date Value 04/20/2019 9.9 mg/dL 04/21/2018 9.8 mg/dl Anion Gap (calc.) (mmol/L) Date Value 04/21/2018 8 No results found for: CRP No results found for: ESR Alkaline Phosphatase (U/L) Date Value 04/20/2019 71 04/20/2019 68 04/21/2018 79 Impression: 22 y.o. old male with a hx of spina bifida, [facility] Doing [facility]. ?? Plan: 1. Patient education: I went over the above diagnoses and treatment plan with him and answered all of his questions. 2. Exercise program: Continue HEP, stay active 3. Medications: none prescribed this visit 4. Continue to follow up with Neurosurgery regarding any pertinent imaging and any possible procedure to address short-term memory loss such as a ventriculostomy. 5. Imaging Orders: none per Physical Medicine and Rehabilitation 6. Continue seeing MH in the community for hx of depression and anxiety 7. Continue sleep services for central sleep apnea 8. Follow as indicated: 1. NSGY 2. Oncology 3. Urology 4. Ophthalmology 9. Follow up: 6 months Location of provider: clinic Location of patient: home I spent a total of 25 minutes with the patient with > 50% of the time spent in education, counseling, and coordination of care. Rob Tillman MD 10/09/2019, 1:08 PM Physical Medicine and Rehabilitation documented in this encounter Plan of Treatment Upcoming Encounters Date Type Specialty Care Team Description 06/12/2022 Appointment Urology Raj Castro MD [address] [facility] [place], [place] [address] (Jeannie osei) 09/28/2022 Telemedicine Psychiatry Humera Bush MD [address] [place], [place] [address] (Jeannie osei) documented as of this encounter Visit Diagnoses Diagnosis Spina bifida without hydrocephalus, unsp ecified spinal region (HRC) - Primary Neurogenic bladder Neurogenic bladder, NOS Neurogenic bowel Gait abnormality Abnormality of gait documented in this encounter Care Teams Digital Strategy Specialist Relationship Specialty Start Date End Date Rob Tillman MD PCP - General Physical Medicine and 08/01/[address] [place] [address] [place] [address] documented as of this encounter
--- OUTSIDE RECORDS SUMMARY | 2022-05-27 10:15 | XMS_ITS | Encounter Summary ---
:1995 Author Organization [employer] Address [address] [place] [address] Care Team Providers Name Role Phone Rob Tillman MD Primary Care Provider Reason for Visit Reason Comments FOLLOW-UP,LAB lab case arrived [place], [place] Encounter Details Date Type Department Care Team Description 01/29/2020 Telephone [facility] Lisa Haddad, FOLLOW-UP,LAB (lab case [address] 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 documented as of this encounter Nursing Notes Lisa Haddad LDA - 01/29/2020 4:55 PM CDT Lab case arrived from Primary Data for LAUREL insert on 02/08/20 @ [place] DIO Mohamud documented in this encounter Plan of Treatment Upcoming Encounters Date Type Specialty Care Team Description 06/12/2022 Appointment Urology Raj Castro MD [address] [place] [phone] (Wo rk) 09/28/2022 Telemedicine Psychiatry Humera Bush MD [address] [place], [place] [address] (Wo rk) documented as of this encounter Visit Diagnoses Not on filedocumented in this encounter Care Teams Cesspool Cleaner Relationship Specialty Start Date End Date Rob Tillman MD PCP - General Physical Medicine and 08/01/19 [address] [facility] [place] [place] [address] documented as of this encounter
--- OUTSIDE RECORDS SUMMARY | 2022-05-27 10:15 | XMS_ITS | Encounter Summary ---
:1995 Author Organization [employer] Address [address] [place] [address] Care Team Providers Name Role Phone Rob Tillman MD Primary Care Provider Encounter Details Date Type Department Care Team Description 04/12/2020 Telemedicine [facility] Humera Bush, ADHD (attention deficit hype ractivity disorder), inattentive type (Primary Dx); [address] 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 Chief Complaint: Fly is seen today with his mother present for FU after restarting Zoloft Current History: Fly is a 24-year-old young man with nonverbal learning disorder, anxiety disorder, ADHD and spina bifida. He has had some significant difficulty with medication compliance. At the last visit we restarted his Zoloft at 100 mg which he had inadvertently stopped. There has been a marked improvement since restarting. Mom said it took only several days before they noticed that was much more upbeat, motivated and much less irritable. Fly says he feels ???much better, ???since he has restarted the medication. Right now they continue to work on long-term goal setting and motivation to achieve those goals. They are working with the upper caser about looking for community job placement. They have found an apartment which would be very good for him but needs to be working 10-15 hours a week in order to affordit. Medical Review of Systems: There were no vitals filed for this visit. no side effects and no issues with pain Labs:No indication for labs at this time. AIMS/DISCUS:The patient is observed and no movements of concern noted Chemical Use: none Social History Living Situation: bio parents Activities: has few friends, no/limited extracurricular activities Education: N/A Therapy: None Other Services: [facility] worker, upper caser with [employer] Mental Status Exam: Fly is noticeably bright and talkative today. Speech is unremarkable except for his tendency to be somewhat repetitive and concrete which is consistent with his visits. Motor exam is consistent with his spina bifida. His affect is bright and he tells me that his mood is ???muchbetter now.?? Content of the interview is about job excessive electronic use, lack of social contact. His process concrete but organized. He is less scattered than he has been on all past visits. He is alert,, fund of knowledge is adequate, he is reasonably focused, cognitively he struggles with abstract open-ended issues. Insight and judgment are adequate. Assessment: Fly is doing better by both his account and mom's perspective since restarting the Zoloft. He still struggles with low motivation. On wondering increasing to 150 mg might be worthwhile in Fly agrees to give that a try. We talked about a community-based resources that might be useful to expand socialization I gave them some specific suggestions. He will continue work with his [employer] worker for job placement. Because we are increasing his medications they return to the clinic in 1 month Risk Assessment: The patient is at low risk for aggression. Diagnosis:ADHD, anxiety disorder NOS, NVLD, spina bifida Plan: Add/change medications as follows: Increase Zoloft to 150 mg daily No Medications ordered this encounter Discussed side effects and efficacy of all medications Discussed healthy eating and exercise Discussed issues related to excessive electronics use Discussed transition to adulthood issues Discussed community resources for increased socialization Appointment in: 1 month Visit Summary: complex evaluation and medication management. Humera Buhs MD This note created using speech-recognition software and may contain unintended word substitutions. documented in this encounter Plan of Treatment Upcoming Encounters Date Type Specialty Care Team Description 06/12/2022 Appointment Urology Raj Castro MD [address] [place] [phone] (Wo rk) 09/28/2022 Telemedicine Psychiatry Humera Bush MD [address] [place], [place] [address] (Wo rk) documented as of this encounter Visit Diagnoses Diagnosis ADHD (attention deficit hyperactivity di sorder), inattentive type (HRC) - Primary Attention deficit disorder with hyperact ivity Nonverbal learning disorder Spina bifida, unspecified hydrocephalus presence, unspecified spinal region (HRC) Anxiety (HRC) Anxiety state, unspecified documented in this encounter Care Teams Development Rep Relationship Specialty Start Date End Date Rob Tillman MD PCP - General Physical Medicine and 08/01/[address] [place] [address] [place] [address] documented as of this encounter
--- OUTSIDE RECORDS SUMMARY | 2022-05-27 10:15 | XMS_ITS | Encounter Summary ---
:1995 Author Organization [employer] Address [address], [place] [address] Care Team Providers Name Role Phone Rob Tillman MD Primary Care Provider Reason for Visit Reason Comments QUESTIONS, GENERAL Encounter Details Date Type Department Care Team Description 10/07/2020 Telephone [facility] [address], Provider QUESTIONS, GENERAL Urology Clinic [address] [place] [address]. 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 Sol Butcher 10/08/2020, 8:20 AM Thomas Larson - 10/07/2020 5:06 PM CDT Miscellaneous Questions [Appt Center: If this call is after 3 p.m., communicate to patient: If we are not able to get back to you by the end of the day and your symptoms worsen please contact the Careline at [phone] OR at .] Is this a question/concern or an FYI? Question/Concern What is your question or concern? PATIENT WOULD LIKE TO KNOW IF HIS URODYNAMICS APPOINTMENT CAN BE PUSHED OUT HALF AN HR. Have you recently been seen for this? No Is it okay to leave a detailed message on your voicemail? Yes Thomas Larson documented in this encounter Plan of Treatment Upcoming Encounters Date Type Specialty Care Team Description 06/12/2022 Appointment Urology Raj Castro MD [address] [place], [place] [address] (Wo rk) 09/28/2022 Telemedicine Psychiatry Humera Bush MD [address] [place], [place] [address] (Wo rk) documented as of this encounter Visit Diagnoses Not on filedocumented in this encounter Care Teams Warehouse Packer Relationship Specialty Start Date End Date Rob Tillman MD PCP - General Physical Medicine and 08/01/19 [address] [facility] [place] [place] [address] documented as of this encounter
--- OUTSIDE RECORDS SUMMARY | 2022-05-27 10:15 | XMS_ITS | Encounter Summary ---
:1995 Author Organization [employer] Address [address], [place] [address] Care Team Providers Name Role Phone Rob Tillman MD Primary Care Provider Reason for Visit Reason Comments Reeve LETTER NEEDED Encounter Details Date Type Department Care Team Description 07/01/2020 Telephone [facility] Humera Bush Reeve; LETTER NEEDED [address] [place] [address] [phone] Social History Tobacco Use Types Packs/Day Years Used Date Smoking Tobacco: Never Smokeless Tobacco: Never Alcohol Use Standard Drinks/Week Comments Yes 0 (1 standard drink = 0.6 oz pure alcoho l) occasional Sex Assigned at Date Recorded 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 Contacted pharmacy who verifies that the pt's Wellbutrin was processed through his insurance w/ a $0 copay and picked up on 07/18/20. No further action needed. Closing encounter at this time. Tomeka Adams RN 07/23/2020, 10:53 AM Tomeka Nicholson RN - 07/09/2020 2:00 PM CST Contacted the number for Medicare today. The territory representative said she could not help me as I do not have access to pt's chart. She stated I needed to call the prescription benefit plan, but was unable to give freelance copywriter a number for them. Attempted to contact pt. Left detailed VM letting him know that freelance copywriter has been unable to figure outexactly what is needed by contacting his insurance company. Asked that he contact them to find out exactly what is needed and where to send the information to and relay that onto the clinic. Provided clinic number to call with any further questions and to call to provide information to of what needs to be done for name brand Wellbutrin XL. Tomeka Adams RN 07/09/2020, 2:03 PM Tomeka Nicholson RN - 07/03/2020 3:30 PM CST The number that pt provided is not the correct number to get in touch with his plan regarding brand name Wellbutrin. Contacted pt - reports that there is also a number listed, 1-800-medicare. Will attempt to contact this number to discuss getting coverage for brand name Wellbutrin XL. Pt reports he has about a month of his Wellbutrin left, so is not in immediate need of a refill. Tomeka Adams RN 07/03/2020, 3:31 PM Tomeka Nicholson RN - 07/01/2020 4:04 PM CST PA has come back closed. Will wait to see if pt is able to send letter rec'd by insurance company. Tomeka Adams RN 07/01/2020, 4:05 PM Tomeka Nicholson RN - 07/01/2020 4:00 PM CST Have initiated a PA to see if that works to get coverage of Wellbutrin XL brand name. Tomeka Adams RN 07/01/2020, 4:00 PM R WHEELCHAIR MECHANIC Nadine Larson - 07/01/2020 3:22 PM CST Forms & Letters - All Types What form/letter are you requesting? Medically necessity statement for the brand name drug for Wellbutrin. Per mother and pt, pt received a letter stating that pt needs a statement for Brand name of wellbutrin and not generic brand. Generic doesn't work well with pt. Per letter received from pts RX plan, Medicare and [employer] has merged for 2020. Insurance will determine if Wellbutrin is covered once statement from provider is received and reviewed with in 72hrs. Customer ID# on letter is: [phone] Group RX #: [id number] (Pt will try to email and attach letter from insurance plan via [employer]) How would you like to receive your form/ letter?: [Gum Rolling Machine Operator:this may require a Release of Information form to be completed/signed] Call [phone] - No fax number on letter received Is it okay to leave a detailed message on your voicemail? Yes [Gum Rolling Machine Operator]: Communicate to patient: Forms/letters may take up to 7-10 business days to complete. We will complete it as soon as possible and return it to the location you requested ?? If the form/letter is medication related - route this encounter to the pool manager ?? If the form/letter is non-medication related - route this encounter to the [facility] Is there anything else I can help you with today? no Nadine Larson R WHEELCHAIR MECHANIC documented in this encounter Plan of Treatment Upcoming Encounters Date Type Specialty Care Team Description 06/12/2022 Appointment Urology Raj Castro MD [address] [place] [phone] (Wo rk) 09/28/2022 Telemedicine Psychiatry Humera Bush MD [address] [place], [place] [address] (Wo rk) documented as of this encounter Visit Diagnoses Not on filedocumented in this encounter Care Teams Felt Hat Mellowing Machine Operator Relationship Specialty Start Date End Date Rob Tillman MD PCP - General Physical Medicine and 08/01/[address] [place] [address] [place] [address] documented as of this encounter
--- OUTSIDE RECORDS SUMMARY | 2022-05-27 10:15 | XMS_ITS | Encounter Summary ---
:1995 Author Organization [facility] Address [address] [place] [address] Care Team Providers Name Role Phone Rob Tillman MD Primary Care Provider Encounter Details Date Type Department Care Team Description 04/18/2020 Telemedicine [facility] Cancer Wyatt Oneil lymphoma, unspecified, lymph nodes of axilla and upper limb (HRC) (Primary Dx); Center at [facility] MD Brina Spina bifida, unspecified hydrocephalus presence, unspecified spinal region (HRC) [address] [phone] Social History Tobacco Use Types Packs/Day Years Used Date Smoking Tobacco: Never Smokeless Tobacco: Never Alcohol Use Standard Drinks/Week Comments Yes 0 (1 standard drink = 0.6 oz pure alcoho l) occasional Sex Assigned at Date Recorded 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 2. Mild neutropenic persistent lab testing at [facility] in June 2017. ?? TREATMENT: Four months of the ABVe-PC chemotherapy followed by 2100 cGy of radiation to the chest and mediastinum, completed in June 2013. PLAN: Arrange lab visit (orders entered) Return 1 year for in person or video visit Wy[place] Oneil MD - Lab appointment tomorrow, 04/19/20 @11:00am at the [facility] ([id number] [id number]). - You have been added to Dr. Oneil's March 2021 waitlist. Our office will contact you closer to that time for scheduling. Patient aware + AVS Mailed. Jaquan Mccain 04/18/2020, 9:05 AM documented in this encounter Progress Notes [place] Oneil MD - 04/18/2020 8:30 AM CDT This office note has been dictated. [id number] Wyatt Oneil MD Vani Oneal RN - 04/18/2020 8:30 AM CDT Completed per provider's orders. QOPI: Is patient starting new chemotherapy medications today or in the near future? No Vani Oneal RN 04/18/2020 9:33 AM [place] Oneil MD - 04/18/2020 12:00 AM CDT LUCÍA MARTINEZ CSN: [id number] CLINIC NOTE DATE OF SERVICE: 04/18/2020 : 1995 DIAGNOSES: 1. 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 2. Mild neutropenia, persistent, following prior chemotherapy. TREATMENT: Four months of ABVE-PC chemotherapy followed by 2100 cGy of radiation to the chest and mediastinum completed June 2013. SUBJECTIVE: The patient returns for followup of stage II nodular sclerosing Hodgkin lymphoma. He is a 24-year-old man with whom I performed a 10-minute video visit today for followup. He is now 7 years from original diagnosis and continues to feel well. Other health problems include spina bifida. He is sequestering at home. Currently is unemployed, but is taking classes online. He has had no fevers, night sweats, or weight loss. He is overdue for laboratory evaluation. ASSESSMENT: History of stage II Hodgkin disease, now 7 years status post chemoradiotherapy. PLAN: We will arrange routine labs at the [facility]. I can call him with the results. Return to clinic in 1 year for an in-person or video visit. WYATT ONEIL MD [facility]/ANJALIL /[id number] documented in this encounter Plan of Treatment Upcoming Encounters Date Type Specialty Care Team Description 06/12/2022 Appointment Urology Raj Castro MD [address] [place], [place] [phone] (Wo rk) 09/28/2022 Telemedicine Psychiatry Humera Bush MD [address] [place], [place] [address] (Wo rk) documented as of this encounter Visit Diagnoses Diagnosis Hodgkin lymphoma, unspecified, lymph nod es of axilla and upper limb (HRC) - Primary Spina bifida, unspecified hydrocephalus presence, unspecified spinal region (HRC) documented in this encounter Care Teams Industrial Engineer Relationship Specialty Start Date End Date Rob Tillman MD PCP - General Physical Medicine and 08/01/19 [address] [facility] Rehabilitation [place], [place] [phone] documented as of this encounter
--- OUTSIDE RECORDS SUMMARY | 2022-05-27 10:15 | XMS_ITS | Encounter Summary ---
:1995 Author Organization [employer] Address [address] [place] [address] Care Team Providers Name Role Phone Rob Tillman MD Primary Care Provider Reason for Referral Procedure/Equipment (Routine) - Closed Specialty Diagnoses / Procedures Referred By Contact Refer red To Contact Diagnoses Neurogenic dysfunction of the urinary bladder Pelvic floor dysfunction Raj Castro MD [address] [place] [address] Referral ID Status Reason Start Date Expiration Date Visits Requ ested Visits Authorized [id number] Closed 12/18/2020 03/19/2022 20 20 Scheduling Instructions . Reason for Visit Reason Comments Pelvic Health Therapies (Routine) - Closed Specialty Diagnoses / Procedures Referred By Contact Refer red To Contact Diagnoses Neurogenic bladder Pelvic floor dysfunction Raj Castro MD [address] [place] [id number] Referral ID Status Reason Start Date Expiration Date Visits Requ ested Visits Authorized [id number] Closed 10/31/2020 10/31/2021 999 999 Encounter Details Date Type Department Care Team Description 12/18/2020 Office Visit [place] Candie Smith, PT Neurogenic dysfunction of the urinary bl adder (Primary Dx); PHYSICAL THERAPY [address] Pelvic floor dysfunction [address] 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 documented as of this encounter Last Filed Vital Signs Vital Sign Reading Time Taken Comments Blood Pressure - - Pulse - - Temperature - - Respiratory Rate - - Oxygen Saturation - - Inhaled Oxygen Concentration - - Weight 59.9 kg (132 lb) 12/18/2020 2:08 PM CDT Height 154.9 cm (5' 1) 12/18/2020 2:08 PM CDT Body Mass Index 24.94 12/18/2020 2:08 PM CDT documented in this encounter Progress Notes Candie Acosta, PT - 12/18/2020 8:00 AM CDT PHYSICAL THERAPY PELVIC HEALTH INITIAL EVALUATION ASSESSMENT Patient presents with referral diagnosis of neurogenic bladder with impaired pelvic floor relaxationand bladder dyssynergia. Status complicated with spina bifida with L hip dysplasia with multiple surgeries and non-surgical candidate for hip replacement, Hodgkin lymphoma, spina bifida, asthma, s/p shunt with hydrocephalus, s/p thoracolumbar fusion,chiari decompression. Positive findings include L hip ROM, voiding posture, faulty breathing pattern with limited pelvic floor ROM. Functional impairments of elevated fluid volumes, elevated bladder irritants, urinary frequency, hesitancy with reliance on self cath. Patient will benefit from Skilled Physical Therapy services to address these impairments. Evaluation billed as High Complexity as supported by: 3+ personal factors and/or co-morbidities impacting plan of care (see Problem List for details). Examination of body systems using standardized tests and measures addressing a total of 4 or more elements from any of the following (body structures and function, activity limitations, and/or participation restrictions) (elevated fluid volumes, elevated bladder irritants, urinary frequency, hesitancywith reliance on self cath). Clinical presentation is unstable/unpredictable (unstable--limited hip ROM with multiple hip surgeries). Physical Therapist exercised clinical decision-making of a high complexity. Goals (10 visits): 1. Normalize fluid intake to 64-80 ounces. per day, reduce bladder irritants by 10%. 2. Normalize frequency of voids, voiding every 3-4 hours. 3. Based on pelvic floor assessment, patient will demonstrate stable resting tone within functional limits demonstrating good coordination and neuromuscular control appropriate for normal voiding and defecation patterns. PLAN Plan for Next Session: NIH CPSI secondary to 0% on PFIQ F/u with Physical Medicine for L hip limitations for [place] [facility] [place]vic floor perineal assessment Treatment Plan: Treatment: Neuromuscular reeducation - biofeedback [...] History, Diagnostic Tests, and Medications: Reviewed in [facility]. Urodynamic study: Barriers/Restrictions: Spina bifida/neurogenic bladder [...] mobility SUBJECTIVE Chief Complaint: Urinary: Frequency: every 2-3 hours Urgency: denies Urge awareness: present Nocturia: 0X/night Incontinence: denies Voiding: Self cath: only with hesitancy (rare) Dysuria: denies Feeling of incomplete bladder emptying: denies Post-void dribbling: denies Bowel: Frequency: 1-2X/day Vicco stool type: 4 Straining: denies Incomplete bowel emptying: denies Pain/bleeding with defecation: denies Fecal urgency: denies Fecal incontinence: denies Sexual health: Sexually active: self masturbation Frequency: 2X/week Pain with erection/ejaculation: denies Erectile dysfunction: present since puberty Pain: Pain is not an issue for this episode of care for this patient. Symptom Duration: long history since childhood Previous Treatment for this Condition: Catherization Followed by Physical Medicine for Spina Bifida management Occupation: [employer], has unrestricted access to restroom Dietary Considerations and Fluid Intake: Caffeine consumption: 64 ounces coffee/day, 12-24 caffeinated regular soda per day Fluid intake: 144 ounces of water - large amounts throughout day, 16-24 ounces of cows milk, 8-16 ounces orange juice Evening fluid levels: n/a--denies Diet: chocolate, artificial sweeteners, sugar intake: soda Total fluid volume: 244-272 ounces Bladder irritants: 34% Recommendation per body weight: 66 ounces/day Pertinent [...] go OBJECTIVE Estimated body mass index is 24.56 kg/m?? as calculated from the following: Height as of 09/07/19: 5' 1 (1.549 m). Weight as of 09/07/19: 130 lb (59 kg). Posture/Observations: Standing voiding posture: With bilateral forearm crutches: Pelvis: anterior pelvic tilt L femoral adduction/internal rotation Weight bearing L Seated voiding posture: Pelvis: anterior pelvic tilt Femoral: left femoral adduction/internal rotation Transfers/Transitional Movements/Functional Mobility: Independent, sit to stand with use of B forearm crutches Gait: step through with bilateral B forearm crutches, limited weight bearing on L LE Breathing pattern: apical ROM: Passive ROM L/E: Hip defer to next visit, limited abduction to 0 degrees with compensation of internal rotation in toilet posture Pelvic floor: defer to next visit Abdominals: defer to next visit Sensation: defer to next visit Palpation: defer to next visit THERAPY OUTCOMES PT - Pelvic Health Pelvic Floor Impact Questionnaire (PFIQ) (0-300, 0 being best): 0 TODAY'S SESSION Initial Evaluation, High Complexity (30 minutes) Neuromuscular Re-education (15 minutes): Anatomy and physiology of bladder/pelvic floor and role in bladder/bowel/sexual health Diaphragmatic breathing/reverse kegel X 5--use of Barrel pelvic core model Self-Care/Home Management Training (15 minutes): Pt instructed in: Fluid volume/bladder irritants Voiding: seated and standing with hip neutral, pelvis neutral, reverse kegel Patient's Response to Therapy: Hip internal rotation when attempting hip abduction >0 degrees in sitting posture, good understanding of behavioral recommendation today, improved abdominal expansion but good report of pelvic floor relaxation with reverse kegel today Home Program with Expected Frequency: Diaphragmatic breathing/reverse kegel supine 1-5 minutes 3X/day Current Self-Management: Fluid volume/bladder irritants Voiding strategies/reverse kegel Timed Code Minutes: 30 minutes Untimed Code Minutes: 30 minutes Total Treatment Time: 60 minutes Candie Acosta, PT 12/18/2020 documented in this encounter Plan of Treatment Upcoming Encounters Date Type Specialty Care Team Description 06/12/2022 Appointment Urology Raj Castro MD [address] [place], [place] [address] (Wo rk) 09/28/2022 Telemedicine Psychiatry Humera Bush MD [address] [place], [place] [address] (Wo rk) Scheduled Referrals Name Type Priority Associated Diagnoses Order S chedule Rehab Therapies Follow Referral Routine Neurogenic dysfunc tion Ordered: 12/18/2020 Up of the urinary b ladder Pelvic floor dysfunction documented as of this encounter Visit Diagnoses Diagnosis Neurogenic dysfunction of the urinary bl adder - Primary Neurogenic bladder, NOS Pelvic floor dysfunction Pelvic muscle wasting documented in this encounter Care Teams Associate Professor Of Library Media Relationship Specialty Start Date End Date Rob Tillman MD PCP - General Physical Medicine and 08/01/19 [address] [facility] [place] [address] documented as of this encounter
--- OUTSIDE RECORDS SUMMARY | 2022-05-27 10:15 | XMS_ITS | Encounter Summary ---
:1995 Author Organization [employer] Address [address] [place] [address] Care Team Providers Name Role Phone Rob Tillman MD Primary Care Provider Reason for Visit Reason Comments Rachelle FYI Encounter Details Date Type Department Care Team Description 05/02/2020 Telephone [facility] Humera Bush MD Reeve; FYI 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 Tomeka Adams RN 05/02/2020, 9:23 AM CIATE PROGRAMMER ANALYST Gayla Kiran - 05/02/2020 9:14 AM CST Miscellaneous Questions & FYI's Is this a question/concern or an FYI? FYI What is your comment or FYI? Pt is wanting to let Dr Bush know that he wants to continue using [facility] for his medications, if any questions ok to call back Is it okay to leave a detailed message on your voicemail? No [Medical Front Desk Specialist: If the pt is calling after 3:30pm, was the caller reminded that their call may not be returned until the following day: No] Gayla Kiran CIATE PROGRAMMER ANALYST documented in this encounter Plan of Treatment Upcoming Encounters Date Type Specialty Care Team Description 06/12/2022 Appointment Urology Raj Castro MD [address] [place], [place] [address] (Wo rk) 09/28/2022 Telemedicine Psychiatry Humera Bush MD [address] [place], [place] [address] (Wo rk) documented as of this encounter Visit Diagnoses Not on filedocumented in this encounter Care Teams Printer Helper Relationship Specialty Start Date End Date Rob Tillman MD PCP - General Physical Medicine and 08/01/19 [address] [facility] [place] [address] documented as of this encounter
--- OUTSIDE RECORDS SUMMARY | 2022-05-27 10:15 | XMS_ITS | Encounter Summary ---
:1995 Author Organization [employer] Address [address] [place] [address] Care Team Providers Name Role Phone Rob Tillman MD Primary Care Provider Encounter Details Date Type Department Care Team Description 03/15/2020 Telemedicine [facility] Humera Bush, ADHD (attention deficit hype ractivity disorder), inattentive type (Primary Dx); [address] 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 Chief Complaint: Fly is seen with his mother, he ran out of medication for his sertraline 2 weeks ago Current History: Fly is a 24-year-old with spina bifida nonverbal learning disorder who also struggles with mood regulation and attention span issues. He tells me today that he felt like the increase in his Zoloft from 50-100 mg was extremely helpful. Mom concurs that things seemed to be heading in a good direction. He was happier, more willing to do things, less oppositional. She says about 2 weeks ago things took a turn and he has once again been more resistant. As we talk it became evident that Fly lost his medications and somewhere between 2 and 3 weeks ago he discontinued his sertraline. He has continued on his other medications. He cannot offer any particular explanation as to what happened he just says that he ???could not find the bottle.?? He had been making good progress, was more receptive to working with his vocational rehab person, had put and so several job applications, was meeting with his ILS worker on a regular basis. Medical Review of Systems: There were no vitals filed for this visit. no side effects and no issues with pain Labs:No indication for labs at this time. AIMS/DISCUS:The patient is observed in the office and no movements of concern noted Chemical Use: none Social History Living Situation: bio parents Activities: has few friends, no/limited extracurricular activities, excessive video game or electronics use Education: N/A Therapy: None Other Services: [facility] worked, [facility] case manager Mental Status Exam: Fly is pleasant and talkative, he is clearly brighter and more interactive than some of her past visits, eye contact is appropriate. Speech and motor exams are unremarkable except for deficits related to his spina bifida. His affect is bright and he tells me his mood is ???it still pretty good even though I stopped my medicine.?? Content to the interviews around behavior, activities, video games. His thought process is concrete but organized. Cognitively he has clear deficits in abstract thinking, he tends to lose track of the conversation and go back to talking about videogames. He is alert, general knowledge seems to be good, he has a reasonably good memory. Insight judgment is immature for his age. Assessment: Fly appears to have had a positive benefit to the Zoloft but unfortunately discontinuing the medication 2 weeks ago when he ???lost his pills.?? I suggested we restart at 100 mg. I will contact the pharmacy and request an early refill due to lost medicine. We talked about strategies to keep me up-to-date if difficulties arise in the future. Mom feels like recommendations that we madein the past for increased structure were really quite helpful and if Fly stays busy and has things to do his mood is much improved. He will continue to work with his [employer] worker as well as his vocational rehab person Risk Assessment: The patient is at low risk for aggression. Diagnosis: ADHD, anxiety disorder not otherwise specified, nonverbal learning disorder, spina bifida Plan: Add/change medications as follows: Restart Zoloft 100 mg daily, nurse will call the pharmacy to request an early refill Outpatient ordered medications Medication Sig sertraline (ZOLOFT) 100 MG tablet Take 1 Tablet by mouth daily. Discussed side effects and efficacy of all medications Discussed need to implement family and behavioral therapy interventions Continue all current social and educational plans Discussed healthy eating and exercise Discussed issues related to excessive electronics use Appointment in: 3-4 weeks Visit Summary: complex evaluation and medication management. Humera Bush MD This note created using speech-recognition software and may contain unintended word substitutions. documented in this encounter Plan of Treatment Upcoming Encounters Date Type Specialty Care Team Description 06/12/2022 Appointment Urology Raj Castro MD [address] [place], [place] [address] (Wo rk) 09/28/2022 Telemedicine Psychiatry Humera Bush MD [address] [place], [place] [address] (Wo rk) documented as of this encounter Visit Diagnoses Diagnosis ADHD (attention deficit hyperactivity di sorder), inattentive type (HRC) - Primary Attention deficit disorder with hyperact ivity Nonverbal learning disorder Spina bifida, unspecified hydrocephalus presence, unspecified spinal region (HRC) Anxiety (HRC) Anxiety state, unspecified documented in this encounter Care Teams Interior Wall Assembler Relationship Specialty Start Date End Date Rob Tillman MD PCP - General Physical Medicine and 08/01/19 [address] [facility] [place] [address] documented as of this encounter
--- OUTSIDE RECORDS SUMMARY | 2022-05-27 10:15 | XMS_ITS | Encounter Summary ---
:1995 Author Organization [employer] Address [address] [place] [address] Care Team Providers Name Role Phone Rob Tillman MD Primary Care Provider Encounter Details Date Type Department Care Team Description 06/04/2020 Office Visit [facility] Sánchez Aceves, Obstructive sleep [address] Blaise Wells DDS, MS apnea (adult) [place], [place] [address] (pediatric) (Primary [phone] [place], [place] Dx) [address] Social History Tobacco Use Types Packs/Day Years Used Date Smoking Tobacco: Never Smokeless Tobacco: Never Alcohol Use Standard Drinks/Week Comments Yes 0 (1 standard drink = 0.6 oz pure alcoho l) occasional Sex Assigned at Date Recorded 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 Oral appliance use: nightly Use of elastics: yes Sleep: no significant changes noticed, other than he has been sleeping in a little later than his usual. No problems noticed with appliance. Complications from oral appliance use: neg ROS: Jaw pain or dysfunction: neg - went away Dental pain: neg - went away Bite change: neg PFSH: no health changes. Doing well. Enjoying video games. O: Extraoral exam: no swelling, mass, or lymphadenopathy. Jaw range of motion: unrestricted, no TMJ noise, no pain. Points tender to palpation: No tenderness to palpation on the masticatory muscles, SCM muscles or TMJs. Intraoral exam: Soft tissue exam: WNL Dental exam: WNL Occlusion: Intercuspal dental contacts: solid on both posterior segments. Oral appliance fit: good fit, slightly low retention. Patient's ability to further protrude when OA in place is 4 mm approx A: Diagnosis: ??obstructive sleep apnea-??mild HST 06/12/19 - RDI 5 Referring provider:??Ruth Ann Khan Progress: no changes perceived on sleep or fatigue. P: Will continue to use device qhs. Adjustment of oral appliance today: 1 mm further forward after discussing with pt. He will try it at this setting for a week. If no difference on his sleep, and no problems on jaw andbite, he will adjust it further forward 1 more mm. he will watch for changes in sleep and sleep apnea symptoms in response to adjustment of the appliance. heshould watch for bite changes and do jaw exercises in the morning to reset his jaw. Will either discontinue using device or discuss with me if complications from its use. Recommended follow up with us in no later than 6 months or sooner as needed. Jose G Aceves DDS, MS CTIVE CIGARETTE SLITTER documented in this encounter Plan of Treatment Upcoming Encounters Date Type Specialty Care Team Description 06/12/2022 Appointment Urology Raj Castro MD [address] [place], [place] [address] (Wo rk) 09/28/2022 Telemedicine Psychiatry Humera Bush MD [address] [place], [place] [address] (Wo rk) documented as of this encounter Visit Diagnoses Diagnosis Obstructive sleep apnea (adult) (pediatr ic) - Primary documented in this encounter Care Teams Executive Account Manager Relationship Specialty Start Date End Date Rob Tillman MD PCP - General Physical Medicine and 08/01/19 [address] [facility] [place] [address] documented as of this encounter
--- OUTSIDE RECORDS SUMMARY | 2022-05-27 10:15 | XMS_ITS | Encounter Summary ---
:1995 Author Organization [employer] Address [address], [place] [address] Care Team Providers Name Role Phone Rob Tillman MD Primary Care Provider Encounter Details Date Type Department Care Team Description 07/11/2020 Lab Visit [facility] ADHD (attention deficit hype ractivity disorder), inattentive type; [address] [facility] Nonverbal learning disorder; [place], [place] [address] Major depressive disorder, s grace episode, severe ([facility]) [phone] Social History Tobacco Use Types Packs/Day Years Used Date Smoking Tobacco: Never Smokeless Tobacco: Never Alcohol Use Standard Drinks/Week Comments Yes 0 (1 standard drink = 0.6 oz pure alcoho l) occasional Sex Assigned at Date Recorded 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 Nonverbal learning disorder Major depressive disorder, single episode, severe (HRC) HGB A1C Routine 07/11/2020 8:15 AM ADHD (attention Result s for this METAL DRILLING MACHINE OPERATOR deficit hyperactivity proced ure are in disorder), inattentive the r esults type section. Nonverbal learning disorder Major depressive disorder, single episode, severe (HRC) documented in this encounter Results Hgb A1C (07/11/2020 8:15 AM METAL DRILLING MACHINE OPERATOR) [facility] icix Method Time Signature Hemoglobin A1C 4.7 <=5.6 % 07/11/2020 [facility] 2:13 PM METAL DRILLING MACHINE OPERATOR [facility] Specimen Anatomical Collection Method / Collection Time Recei rufus Time (Source) Location / Volume Laterality Blood Venipuncture / 07/11/2020 8:15 07/11/2020 8:15 Unknown AM METAL DRILLING MACHINE OPERATOR AM METAL DRILLING MACHINE OPERATOR Humera Bush MD LAB_1 Performing Organization Address City/State/ZIP Code Phon e Number [facility] [address] [address] Lipid Panel and Direct LDL(If Needed) (07/11/2020 8:15 AM METAL DRILLING MACHINE OPERATOR) [facility] icix Method Time Signature Cholesterol 180 0 - 199 07/11/2020 [facility] mg/dL 11:48 AM METAL DRILLING MACHINE OPERATOR [facility] Triglyceride 85 <=149 07/11/2020 [facility] mg/dL 11:48 AM METAL DRILLING MACHINE OPERATOR [facility] HDL Cholesterol 44 >=40 07/11/2020 [facility] mg/dL 11:48 AM METAL DRILLING MACHINE OPERATOR [facility] LDL, Calculated 119 <130 07/11/2020 [facility] mg/dL 11:48 AM METAL DRILLING MACHINE OPERATOR [facility] Non HDL Chol, 136 mg/dL 07/11/2020 [facility] Calculated 11:48 AM METAL DRILLING MACHINE OPERATOR [facility] Cholesterol/HDL 4.1 07/11/2020 [facility] Ratio 11:48 AM METAL DRILLING MACHINE OPERATOR [facility] Hours Fasting 14 07/11/2020 [facility] 11:48 AM METAL DRILLING MACHINE OPERATOR Specimen Anatomical Collection Method / Collection Time Recei rufus Time (Source) Location / Volume Laterality Blood Venipuncture / 07/11/2020 8:15 07/11/2020 8:15 Unknown AM METAL DRILLING MACHINE OPERATOR AM METAL DRILLING MACHINE OPERATOR Humera Bush MD LAB_1 Performing Organization Address City/State/ZIP Code Phon e Number [facility] [address] [address] [facility] [address] [place], [place] [phone] documented in this encounter Visit Diagnoses Diagnosis ADHD (attention deficit hyperactivity di sorder), inattentive type (HRC) Attention deficit disorder with hyperact ivity Nonverbal learning disorder Major depressive disorder, single episod e, severe (HRC) Major depressive disorder, single episod e, severe, without mention of psychotic behavior documented in this encounter Care Teams Pearl Peller Relationship Specialty Start Date End Date Rob Tillman MD PCP - General Physical Medicine and 08/01/[address] [place] [address] [place] [address] documented as of this encounter
--- OUTSIDE RECORDS SUMMARY | 2022-05-27 10:15 | XMS_ITS | Encounter Summary ---
:1995 Author Organization [employer] Address [address] [place] [address] Care Team Providers Name Role Phone Rob Tillman MD Primary Care Provider Reason for Visit Reason Comments Follow Up Asthma Encounter Details Date Type Department Care Team Description 07/19/2020 Telephone Central Outreach Rob Tillman MD Follow Up Asthma [address] [facility] 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 ACT Score was Asthma Control Test - Adult 07/19/2020 ACT Total 25 Risk Assessment 0 ACTION: Patient has no questions or concerns. Encounter closed. S B DRIVER documented in this encounter Plan of Treatment Upcoming Encounters Date Type Specialty Care Team Description 06/12/2022 Appointment Urology Raj Castro MD [address] [place], [place] [address] (Wo rk) 09/28/2022 Telemedicine Psychiatry Humera Bush MD [address] [place], [place] [address] (Wo rk) documented as of this encounter Visit Diagnoses Not on filedocumented in this encounter Care Teams Mallet And Die Cutter Relationship Specialty Start Date End Date Rob Tillman MD PCP - General Physical Medicine and 08/01/19 [address] [facility] [place] [address] documented as of this encounter
--- OUTSIDE RECORDS SUMMARY | 2022-05-27 10:15 | XMS_ITS | Encounter Summary ---
:1995 Author Organization [employer] Address [address] [place] [address] Care Team Providers Name Role Phone Rob Tillman MD Primary Care Provider Encounter Details Date Type Department Care Team Description 01/17/2020 Telemedicine [facility] Humera Bush, ADHD (attention deficit hype ractivity disorder), inattentive type (Primary Dx); [address] [place] Nonverbal learning disorder; 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 Chief Complaint: Fly was seen with his mom present, he is concerned about his ???lack of motivation.?? Current History: Fly is a 24-year-old with spina bifida who has been struggling to transition tomore age-appropriate adult activities. At his last visit he felt like his mood had improved and things are going relatively well although he did acknowledge that he was very poorly motivated to follow up with lot of things. Today he feels like his mood is not as good and he is more irritable. He is particularly susceptible to the weather and when it is cloudy he feels ???sadder.?? He acknowledges that when he gets out and goes outside he does feel ???much better,?? but he is very poorly motivated to go out and so most days he stays inside for the whole day. In general he is getting on a bed and playing video games for the entire day with no other activity. He knows that he should be following uplooking for a job and he has a vocational rehab worker but he is not consistently looking for work. He is wondering if changes in medications or services might be useful. Mom points out that there hasbeen a lot of positives. He does have an ILS worker now and sees that person reliably, he has started to do some job hunting which is also a recent improvement. Medical Review of Systems: There were no [...] use Education: N/A Therapy: None Other Services: Has started to see his ILS worker, does have a county telehealth case manager Mental Status Exam: Fly's more despondent and irritable today than our last visit. Eye contact is appropriate, speech is adequate. Affect ranges from neutral to more anxious appearing you tells me his mood is ???not as good.?? Motor exam is consistent with his spina bifida. Content of the interview is around his daytime behavior, his excessive video game playing. His thought process is bit concrete but organized, he has poor abstract thinking. Cognitively he is alert, focus is good, general knowledge is good, memory is adequate. Insight judgment have some limitations. Assessment: Fly is generally stable. He feels like his mood has deteriorated somewhat and is wondering if medication changes might be helpful. We talked about increasing his Zoloft to 100 mg but also emphasized need for more structure on a day-to-day basis. He agreed to work with his mom to set upa daily schedule and follow that schedule which would significantly limit his video game time. We also talked about increasing services, specifically considering day treatment. The purpose of day treatment would be to teach him coping strategies and provide alternative activities to his video game playing. Both mom and Fly were eager to investigate possible options for a day treatment program. Risk Assessment: The patient is at low risk for aggression. Diagnosis: Nonverbal learning disorder, ADHD, anxiety disorder not otherwise specified, spina bifida Plan: Add/change medications as follows: Increase Zoloft to 100 mg daily Outpatient ordered medications Medication Sig sertraline (ZOLOFT) 100 MG tablet Take 1 Tablet by mouth daily. Discussed side effects and efficacy of all medications Discussed need to implement family and behavioral therapy interventions Discussed healthy eating and exercise Discussed transition to adulthood issues Follow-up with current [facility] telehealth case manager to investigate options for in-home services, discussed day treatment options in detail in resources were suggested for intensive outpatient programming Appointment in: 3-4 weeks, or earlier if needed Visit Summary: complex evaluation and medication management. Humera Bush MD This note created using speech-recognition software and may contain unintended word substitutions. documented in this encounter Plan of Treatment Upcoming Encounters Date Type Specialty Care Team Description 06/12/2022 Appointment Urology Raj Castro MD [address] [place], [place] [address] (Wo rk) 09/28/2022 Telemedicine Psychiatry Humera Bush MD [address] [place], [place] [address] (Wo rk) documented as of this encounter Visit Diagnoses Diagnosis ADHD (attention deficit hyperactivity di sorder), inattentive type (HRC) - Primary Attention deficit disorder with hyperact ivity Nonverbal learning disorder Anxiety (HRC) Anxiety state, unspecified Spina bifida, unspecified hydrocephalus presence, unspecified spinal region (HRC) documented in this encounter Care Teams Pharmacy Student Relationship Specialty Start Date End Date Rob Tillman MD PCP - General Physical Medicine and 08/01/19 [address] [facility] [place] [place] [address] documented as of this encounter
--- OUTSIDE RECORDS SUMMARY | 2022-05-27 10:15 | XMS_ITS | Encounter Summary ---
:1995 Author Organization [employer] Address [address] [place] [address] Care Team Providers Name Role Phone Rob Tillman MD Primary Care Provider Reason for Visit Reason Comments PAIN, MOUTH Encounter Details Date Type Department Care Team Description 03/22/2020 Telephone Sod TMD Priscilla Bagley, PAIN, MOUTH [address] 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 Tooth pain happens upon removal of appliance in the mornings. It is mild, lasts for a few minutes, he has continued using appliance. His appt with us is not until April. Appliance will need adjustments. I told him we will call him if there are last minute cancellations. Please put him on wait list. Thanks. Jose G Lottie Dennis - 03/22/2020 1:28 PM CDT Pt states LAUREL is causing tooth pain, especially when he bites down. Feels as if it is moving his teeth.Feels pain caused by pressure from device. No sores or soft tissue tenderness. documented in this encounter Plan of Treatment Upcoming Encounters Date Type Specialty Care Team Description 06/12/2022 Appointment Urology Raj Castro MD [address] [place], [place] [address] (Wo rk) 09/28/2022 Telemedicine Psychiatry Humera Bush MD [address] [place], [place] [address] (Wo rk) documented as of this encounter Visit Diagnoses Not on filedocumented in this encounter Care Teams Electrical Wirer Relationship Specialty Start Date End Date Rob Tillman MD PCP - General Physical Medicine and 08/01/19 [address] [facility] Rehabilitation [place], [place] [id number] documented as of this encounter
--- OUTSIDE RECORDS SUMMARY | 2022-05-27 10:15 | XMS_ITS | Encounter Summary ---
:1995 Author Organization [employer] Address [address] [place] [address] Care Team Providers Name Role Phone Rob Tillman MD Primary Care Provider Encounter Details Date Type Department Care Team Description 10/07/2020 Telemedicine [facility] Humera Bush[facility] inattentive type (Primary Dx); Psychiatry Nonverbal learning disorder; 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 At his last visit we continued his medications of Zoloft and Wellbutrin for mood and anxiety along with methylphenidate to manage focus and attention and a low dose of Abilify which has been used to help organized his thinking. He has done very well on this combination of medication currently has made great progress towards independence. 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 He is working with an [employer] worker and now is working with a community-based company [employer] for independent supported housing. He feels like his has been very stable, he is organized. Momconcurs that things are going very well. They recently took a trip to [facility] and were able to leave Fly home alone and he did quite well in managing on his own. Medical Review of Systems: There were no vitals filed for this visit. no side effects and no issues with pain Labs:No indication for labs at this time. AIMS/DISCUS:N/A Chemical Use: none Social History Living Situation: bio parents Activities: has few friends, works at [employer] 20 hours a week Education: N/A Therapy: None Other Services: ILS worker Mental Status Exam: Fly is very pleasant and smiling. His attitude is upbeat and optimistic, he smiling and tells me his mood is ???really good.?? Speech is generally unremarkable, he is more concrete than expected for his age but very appropriate. Is seen seated in his car, parked on the side ofthe road with his mom so motor exam is not evaluated. He is more spontaneous in conversation today than he has been for many of our past visits. Content to the interviews about his recent successes, plans to move out. His thought process is a bit concrete but very organized and otherwise unremarkable.Fund of knowledge is adequate, focus is good, he talks about work, community services. Insight and judgment are adequate. Assessment: Fly has really made some nice progress over the last year so and is doing quite well. Based on his success no medication changes will are indicated today. Our long-term goal be for medications simplification if at all possible but right now we will leave things as they are. If he remains stable he can return to the clinic in 6 months time. Risk Assessment: The patient is at low risk for aggression. Diagnosis: ADHD, NVLD, anxiety disorder NOS, spina bifida Plan: Continue current meds with no changes No Medications ordered this encounter Discussed side effects and efficacy of all medications Continue all current social and educational plans Discussed transition to adulthood issues Appointment in: 2 weeks Visit Summary: complex evaluation and medication management. Humera Bush MD This note created using speech-recognition software and may contain unintended word substitutions. documented in this encounter Plan of Treatment Upcoming Encounters Date Type Specialty Care Team Description 06/12/2022 Appointment Urology Raj Castro MD [address] [place] [phone] (Wo rk) 09/28/2022 Telemedicine Psychiatry Humera Bush MD [address] [place], [place] [address] (Wo rk) documented as of this encounter Visit Diagnoses Diagnosis ADHD (attention deficit hyperactivity di sorder), inattentive type ([facility]) - Primary Attention deficit disorder with hyperact ivity Nonverbal learning disorder Major depressive disorder, single episod e, severe ([facility]) Major depressive disorder, single episod e, severe, without mention of psychotic behavior Anxiety ([facility]) Anxiety state, unspecified documented in this encounter Care Teams Coal Trammer Relationship Specialty Start Date End Date Rob Tillman MD PCP - General Physical Medicine and 08/01/[address] [place] [address] [place] [address] documented as of this encounter
--- OUTSIDE RECORDS SUMMARY | 2022-05-27 10:15 | XMS_ITS | Encounter Summary ---
:1995 Author Organization [employer] Address [address] [place] [address] Care Team Providers Name Role Phone Rbo Tillman MD Primary Care Provider Encounter Details Date Type Department Care Team Description 12/13/2020 Telemedicine [facility]era Bush[facility] inattentive type (Primary Dx); Psychiatry Nonverbal learning disorder; 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 Chief Complaint: Fly is seen for unclear reasons today, he says his mom wanted him to make him an appt Current History: Fly is seen today and seems a bit puzzled by the visit. 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 He tells me that he can not remember why he scheduled the appointment. He believes his mother had a specific reason but she is not available at the time of the visit. He thinks it might be a about his excessive video game playing. He tells me that he plays approximately 12 hours a day. This is recently increased since he has completed his online computer course that he was taking. He tells me that he has applied for 2 jobs since completing the course but was not able to get either 1 of them. He believes he has been more irritable lately which he attributes to ???boredom.?? He indicates that still works 20 hours a week but other than working and will he does not ???do anything else.?? He continues to work with a therapist but apparently is only seeing that person every other week and ?? ?can not remember well for doing. Medical Review of Systems: There were no vitals filed for this visit. no side effects and no issues with pain Labs:No indication for labs at this time. 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 Speech is unremarkable, his motor exam is consistent with his spina bifida. He tellsme that his mood has been more irritable but denies any other significant problems. His interaction is notable for being somewhat socially immature. He has very poor abstract thinking and limited information about why he is visiting today. Content of the interview is about his lack of activities. His thought process is quite concrete, he has a poor memory. Insight judgment have some limitations but are generally adequate. Assessment: Fly is a 25-year-old young man with spina bifida and associated learning issues who is really struggling currently with lack of structure at times when he is not working. His mood is generally good unless feels like he has nothing to do. Unfortunately as a result his turn to increased gaining which sounds like it has worsened his irritability. I do not perceive this as a medication issue and really feel like there needs to be some stronger behavioral interventions with increased structure. We spent a lot of time talking about community resources, volunteer jobs etc.. It is not clearif the family has other concerns and mom is not present at visit today. I shared with Fly that his mom is welcome to call and they could reschedule at a time when she could be present or she could simply call the clinic and let us know if she has any concerns. I have also asked Fly to work with his therapist more regularly Risk Assessment: The patient is at low risk for aggression. Diagnosis:ADHD, non verbal learning disorder, anxiety NOS, spina bifida Plan: Continue current meds with no changes Outpatient ordered medications Medication Sig ARIPiprazole (ABILIFY) 5 MG tablet Take 1 Tablet by mouth daily. sertraline (ZOLOFT) 100 MG tablet Take 1 Tablet by mouth daily. WELLBUTRIN XL 300 MG 24 hour release tablet Take 1 Tablet by mouth daily. Discussed side effects and efficacy of all medications Continue with current psychotherapy Discussed healthy eating and exercise Discussed transition to adulthood issues Referred to several community options for increased socialization Appointment in: 3 months, or earlier if needed Visit Summary: complex evaluation and medication management. Humera Bush MD This note created using speech-recognition software and may contain unintended word substitutions. documented in this encounter Plan of Treatment Upcoming Encounters Date Type Specialty Care Team Description 06/12/2022 Appointment Urology Raj Castro MD [address] [place], [place] [phone] (Wo rk) 09/28/2022 Telemedicine Psychiatry Humera Bush MD [address] [place], [place] [address] (Wo rk) documented as [...] ([facility]) documented in this encounter Care Teams Warp Worker Relationship Specialty Start Date End Date Rob Tillman MD PCP - General Physical Medicine and 08/01/19 [address] [facility] Rehabilitation [place], [place] [phone] documented as of this encounter
--- OUTSIDE RECORDS SUMMARY | 2022-05-27 10:15 | XMS_ITS | Encounter Summary ---
:1995 Author Organization [employer] Address [address] [place] [address] Care Team Providers Name Role Phone Rob Tillman MD Primary Care Provider Encounter Details Date Type Department Care Team Description 04/20/2020 Lab Visit [facility] Hodgkin lymphoma, [address] unspecified, [place] [address] axilla and upper limb ([facility]) [phone] Social History Tobacco Use Types Packs/Day Years Used Date Smoking Tobacco: Never Smokeless Tobacco: Never Alcohol Use Standard Drinks/Week Comments Yes 0 (1 standard drink = 0.6 oz pure alcoho l) occasional Sex Assigned at Date Recorded 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 COMPLETE BLOOD STAT 04/20/2020 9:39 AM Hodgkin lymphoma, Re sults for this COUNT-W/DIFF CDT unspecified, lymph procedure are in nodes of axilla and the resu lts upper limb ([facility]) section. LIVER PANEL(HEPATIC STAT 04/20/2020 9:39 AM Hodgkin lymphom a, Results for this FUNCTION PANEL) CDT unspecified, lymph proced ure are in nodes of axilla and the resu lts upper limb ([facility]) section. BASIC METABOLIC PANEL STAT 04/20/2020 9:39 AM Hodgkin lymph tony, Results for this CDT unspecified, lymph procedure are in nodes of axilla and the resu lts upper limb ([facility]) section. TSH, SENSITIVE (WITH Routine 04/20/2020 9:39 AM Hodgkin lympho ma, Results for this REFLEX) CDT unspecified, lymph procedure are in nodes of axilla and the resu lts upper limb ([facility]) section. LD TOTAL (LDH) Routine 04/20/2020 9:39 AM Hodgkin lymphoma, Re sults for this CDT unspecified, lymph procedure are in nodes of axilla and the resu lts upper limb ([facility]) section. ESR Routine 04/20/2020 9:39 AM Hodgkin lymphoma, Resu lts for this CDT unspecified, lymph procedure are in nodes of axilla and the resu lts upper limb ([facility]) section. documented in this encounter Results (ABNORMAL) Complete Blood Count-W/Diff (04/20/2020 9:39 AM CDT) Analysis Performed At [facility] Time Signature WBC 3.2 (L) 3.5 - 10.5 04/20/2020 [facility] x10(9)/L 9:44 AM CDT RBC 5.19 4.32 - 04/20/2020 [facility] 5.72 9:44 AM CDT x10(12)/L Hemoglobin 16.2 13.5 - 04/20/2020 [facility] 17.5 g/dL 9:44 AM CDT HCT 45.8 38.8 - 04/20/2020 [facility] 50.0 % 9:44 AM CDT MCV 88.2 80.0 - 04/20/2020 [facility] 100.0 fL 9:44 AM CDT MCH 31.2 27.6 - 04/20/2020 [facility] 33.3 pg 9:44 AM CDT MCHC 35.4 (H) 31.5 - 04/20/2020 [facility] 35.2 g/dL 9:44 AM CDT RDW 11.9 11.9 - 04/20/2020 [facility] 15.5 % 9:44 AM CDT Platelets 201 150 - 450 04/20/2020 [facility] x10(9)/L 9:44 AM CDT Neutrophil 1.5 (L) 1.7 - 7.0 04/20/2020 [facility] Absolute 10(9)/L 9:44 AM CDT Lymphocyte 1.1 1.0 - 4.8 04/20/2020 [facility] Absolute 10(9)/L 9:44 AM CDT Monocytes 0.4 0.2 - 0.9 04/20/2020 [facility] Absolute 10(9)/L 9:44 AM CDT Eosinophil 0.1 0.0 - 0.5 04/20/2020 [facility] Absolute 10(9)/L 9:44 AM CDT Basophil 0.1 0.0 - 0.3 04/20/2020 [facility] Absolute 10(9)/L 9:44 AM CDT Immature Gran % 0.0 0.0 - 0.5 04/20/2020 [facility] % 9:44 AM CDT Specimen Anatomical Collection Method / Collection Time Recei rufus Time (Source) Location / Volume Laterality Blood Venipuncture / 04/20/2020 9:39 04/20/2020 9:39 Unknown AM CDT AM CDT Wyatt Oneil MD LAB_1 Performing Organization Address City/State/ZIP Code Phon e Number [facility] [address] [place] [address] ESR (Sedimentation Rate) (04/20/2020 9:39 AM CDT) Analysis Performed At Patho logist Time Signature Sedimentation Rate 1 0 - 15 04/20/2020 [facility] mm/hr 10:19 AM CDT Specimen Anatomical Collection Method / Collection Time Recei rufus Time (Source) Location / Volume Laterality Blood Venipuncture / 04/20/2020 9:39 04/20/2020 9:39 Unknown AM CDT AM CDT Wyatt Oneil MD LAB_1 Performing Organization Address City/State/ZIP Code Phon e Number [facility] [address] [place] [address] Lactate Dehydrogenase (LDH) (04/20/2020 9:39 AM CDT) athologist Signature LD 176 119 - 235 04/20/2020 [facility] U/L 4:41 PM CDT LABORATORY Specimen Anatomical Collection Method / Collection Time Recei rufus Time (Source) Location / Volume Laterality Blood Venipuncture / 04/20/2020 9:39 04/20/2020 9:39 Unknown AM CDT AM CDT Wyatt Oneil MD LAB_1 Performing Organization Address City/[facility]/ZIP Code Phon e Number [facility] [address] [place] [address] Liver Panel (Hepatic Function Panel) - STAT (04/20/2020 9:39 AM CDT) athologist Signature Alkaline 69 40 - 150 04/20/2020 [facility] Phosphatase U/L 4:41 PM CDT LABORATORY Bilirubin, Total 0.6 0.2 - 1.2 04/20/2020 [facility] mg/dL 4:41 PM CDT LABORATORY Bilirubin, 0.3 0.0 - 0.5 04/20/2020 [facility] Direct mg/dL 4:41 PM CDT LABORATORY AST (SGOT) 27 10 - 40 04/20/2020 [facility] U/L 4:41 PM CDT LABORATORY ALT (SGPT) 28 0 - 55 U/L 04/20/2020 [facility] 4:41 PM CDT LABORATORY Protein, Total 7.0 6.4 - 8.3 04/20/2020 [facility] g/dL 4:41 PM CDT LABORATORY Albumin 4.7 3.5 - 5.0 04/20/2020 [facility] g/dL 4:41 PM CDT LABORATORY Specimen Anatomical Collection Method / Collection Time Recei rufus Time (Source) Location / Volume Laterality Blood Venipuncture / 04/20/2020 9:39 04/20/2020 9:39 Unknown AM CDT AM CDT Wyatt Oneil MD LAB_1 Performing Organization Address City/[facility]/ZIP Code Phon e Number [facility] [address] [place] [address] Basic Metabolic Panel - STAT (04/20/2020 9:39 AM CDT) P athologist Signature Sodium 140 136 - 145 04/20/2020 [facility] mmol/L 4:41 PM CDT LABORATORY Potassium 4.0 3.5 - 5.1 04/20/2020 [facility] mmol/L 4:41 PM CDT LABORATORY Chloride 103 98 - 109 04/20/2020 [facility] mmol/L 4:41 PM CDT LABORATORY CO2 29 20 - 29 04/20/2020 [facility] mmol/L 4:41 PM CDT LABORATORY Anion Gap 8 7 - 16 04/20/2020 [facility] mmol/L 4:41 PM CDT LABORATORY Calcium 9.7 8.4 - 10.4 04/20/2020 [facility] mg/dL 4:41 PM CDT LABORATORY BUN 14 7 - 26 04/20/2020 [facility] mg/dL 4:41 PM CDT LABORATORY Creatinine 0.90 0.73 - 04/20/2020 [facility] 1.18 mg/dL 4:41 PM CDT LABORATORY GFR, Estimated >60 >60 04/20/2020 [facility] mL/min/1.7 4:41 PM CDT LABORATORY 3m2 Glucose 84 70 - 100 04/20/2020 [facility] mg/dL 4:41 PM CDT LABORATORY Comment: The given reference range is fo r the fasting state. Non-fasting reference range for glucose is 70 - 180 mg/dL. Hours Fasting Unknown 04/20/2020 4:41 PM CDT [facility] Specimen Anatomical Collection Method / Collection Time Recei rufus Time (Source) Location / Volume Laterality Blood Venipuncture / 04/20/2020 9:39 04/20/2020 9:39 Unknown AM CDT AM CDT Wyatt Oneil MD LAB_1 Performing Organization Address City/[facility]/ZIP Code Phon e Number [facility] [address] [place], [place] [phone] [facility] [address] [place] [address], [facility] TSH with Free T4 (if TSH Abnormal) (04/20/2020 9:39 AM CDT) P athologist Signature TSH, Reflex 3.00 0.30 - 4.50 04/20/2020 [facility] uIU/mL 5:14 PM CDT LABORATORY Specimen Anatomical Collection Method / Collection Time Recei rufus Time (Source) Location / Volume Laterality Blood Venipuncture / 04/20/2020 9:39 04/20/2020 9:39 Unknown AM CDT AM CDT Narrative [facility] - 04/20/2020 5:14 P M CDT Lab will automatically reflex to Free T4 when TSH results are <0.30 uIU/mL or >4.50 mIU/mL. Wyatt Oneil MD LAB_1 Performing Organization Address City/State/ZIP Code Phon e Number [facility] [address] [place] [address] documented in this encounter Visit Diagnoses Diagnosis Hodgkin lymphoma, unspecified, lymph nod es of axilla and upper limb ([facility]) documented in this encounter Care Teams Nude Model Relationship Specialty Start Date End Date Rob Tillman MD PCP - General Physical Medicine and 08/01/19 [address] [facility] Rehabilitation [place], [place] [phone] documented as of this encounter
--- OUTSIDE RECORDS SUMMARY | 2022-05-27 10:15 | XMS_ITS | Encounter Summary ---
:1995 Author Organization [employer] Address [address] [address] Care Team Providers Name Role Phone Rob Tillman MD Primary Care Provider Reason for Referral Therapies (Routine) - Closed Specialty Diagnoses / Procedures Referred By Contact Refer red To Contact Diagnoses Neurogenic bladder Pelvic floor dysfunction Raj Castro MD [address] [place] [address] Referral ID Status Reason Start Date Expiration Date Visits Requ ested Visits Authorized [id number] Closed 10/31/2020 10/31/2021 999 999 Scheduling Instructions Your provider has recommended an appoint ment with a [facility] Physical Therapist. Call [facility] at [phone]. We suggest you call your health insurance company about your coverage an d benefits for this appointment. Reason for Visit Reason Comments Follow-up DISCUSS UDS RESULTS Encounter Details Date Type Department Care Team Description 10/31/2020 Office Visit Specialty Center Raj Castro Neu rogenic bladder (Primary Dx); [facility] Pelvic floor dysfunction 435 [facility]. [address] 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 This may be one of our physician assistants or nurse practitioners. They are always in direct communication with your physician who remains responsible for your urologic care at On license of [facility]. For Xray, CT test, and Ultrasound results, unless specifically noted, the results of these tests will be discussed at your next visit with your provider. Results will not be reviewed over the phone. If test results require immediate action we will contact you. For medication refills you may need to [...] you! Get Cost of Care Estimates - [phone] The health insurance marketplace has changed dramatically in the last few years. Our cost of care service will provide estimates over the phone for treatments or procedures billed through [facility]. To receive a cost estimate, simply call [phone] during regular business hours. If you have insurance coverage, you will need to verify your policy of coverage with your health planby calling the number located on the back of your insurance card and talking to member services. documented in this encounter Progress Notes Raj Castro MD - 10/31/2020 3:00 PM CDT Images from the original note were not included. Visit and Exam date: 10/31/2020 Assessment Encounter Diagnoses Name Primary? Neurogenic bladder Yes ??? Pelvic floor dysfunction Plan Urodynamics reviewed revealing impaired pelvic floor relaxation would bladder dyssynergia. Recommended pelvic floor physical therapy/biofeedback for management of pelvic floor dysfunction. Referral hasbeen provided. Follow-up in 4-6 months for reassessment of clinical symptoms. Also did discuss otheroptions such as routine performance of clean intermittent catheterization which Fly knows how toperform, as well as consideration of other management strategies such as Botox injection into the urinary sphincter, skeletal muscle relaxants such as baclofen/Flexeril Please see the After Visit Summary for counseling, advice, and precautions that I gave the patient during today's visit. The clinical visit today with the patient was documented using dictation software. Please excuse any typographical errors in bmx rider Subjective Fly Moran is a 25 y.o. old male seen in clinic today Fly has a history of the following: Neurogenic bladder in the setting of history of spina bifida Please see prior urologic notes Workup/treatments/issues in the interim since last appointment: Underwent urodynamic testing in the interim. Presents for review of test results Fly notes the following: Hematuria in the interim?: No Urinary retention in the interim? No Urinary tract infection in the interim?: No Changes in urinary habits?: No Patient has other no new genitourinary complaints today. Denies fevers, chills, chest pain, shortness of breath Family history and social history were reviewed and are current in Epic Allergies Allergen Reactions ??? Latex Other, see comments Precaution ??? Pollen Extract Breathing Difficulty Nasal congestion ??? Adhesive Rash ? ? Molds & Smuts Other, see comments [place] mold- Respiratory Distress ??? Other Swelling Spider Venom: Severe local swelling No past medical history on file. Objective BP 118/79 (BP Location: Right Arm, BP Cuff Size: Regular) Pulse (!) 120 Pleasant and engaging. No apparent distress. Creatinine Date Value 09/17/2020 0.82 mg/dL 04/20/2020 0.90 mg/dL 04/21/2018 0.93 mg/dl Creatinine Whole Blood (mg/dL) Date Value 04/20/2019 0.9 Raj Castro MD documented in this encounter Plan of Treatment Upcoming Encounters Date Type Specialty Care Team Description 06/12/2022 Appointment Urology Raj Castro MD [address] [place], [place] [address] (Wo rk) 09/28/2022 Telemedicine Psychiatry Humera Bush MD [address] [place], [place] [address] (Wo rk) Scheduled Referrals Name Type Priority Associated Diagnoses Order S chedule Physical Therapy Referral Routine Neurogenic blad gina Ordered: 10/31/2020 Pelvic floor dysfunction documented as of this encounter Visit Diagnoses Diagnosis Neurogenic bladder - Primary Neurogenic bladder, NOS Pelvic floor dysfunction Pelvic muscle wasting documented in this encounter Care Teams Engineering Documentation Specialist Relationship Specialty Start Date End Date Rob Tillman MD PCP - General Physical Medicine and 08/01/19 [address] [facility] [place] [address] documented as of this encounter
--- OUTSIDE RECORDS SUMMARY | 2022-05-27 10:15 | XMS_ITS | Encounter Summary ---
:1995 Author Organization [employer] Address [address] [place] [address] Care Team Providers Name Role Phone Rob Tillman MD Primary Care Provider Encounter Details Date Type Department Care Team Description 02/26/2020 Office Visit [place] [facility] Sánchez Aceves, Obstructive sleep [address] 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 ROS: No dental changes. PFSH: Not assessed. O: No extraoral swelling, mass, or lymph. Good jaw range of motion, straight, no TMJ noises, no pain. A: Diagnosis: obstructive sleep apnea-??mild HST 06/12/19 - RDI 5 Referring provider:??Ruth Ann Khan P: Mandibular advancement device inserted and adjusted for even occlusal contacts. AM tax senior associate made and explained how to use daily, after removal of oral appliance, to help reset bite.Explained jaw exercises to help minimize bite changes and pain. Patient will use the appliance at the current setting and watch for changes in his sleep apnea symptoms from the use of the oral appliance and report back to us next visit Explanation on how to use and clean oral appliance provided today. Explained signs and symptoms to watch for with regards potential bite changes and jaw dysfunction orpain. Self-care recommendations for TMD provided, to be used if jaw pain develops. Recommended to return to see us in 4 weeks to assess her sleep, re-evaluate his jaw position and anydifficulties with the oral appliance. Jose G Aceves DDS, [place] documented in this encounter Plan of Treatment Upcoming Encounters Date Type Specialty Care Team Description 06/12/2022 Appointment Urology Raj Castro MD [address] [place], [place] [address] (Wo rk) 09/28/2022 Telemedicine Psychiatry Humera Bush MD [address] [place], [place] [address] (Wo rk) documented as of this encounter Visit Diagnoses Diagnosis Obstructive sleep apnea (adult) (pediatr ic) - Primary documented in this encounter Care Teams Air Traffic Control Supervisor Relationship Specialty Start Date End Date Rob Tillman MD PCP - General Physical Medicine and 08/01/19 295 [facility] Rehabilitation [address] documented as of this encounter
--- OUTSIDE RECORDS SUMMARY | 2022-05-27 10:15 | XMS_ITS | Encounter Summary ---
:1995 Author Organization [employer] Address [address] [place] [address] Care Team Providers Name Role Phone Rob Tillman MD Primary Care Provider Encounter Details Date Type Department Care Team Description 07/09/2020 Telemedicine [facility] Humera Bush, [facility] inattentive type (Primary Dx); Psychiatry Nonverbal learning disorder; 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 Chief Complaint: Fly is seen for FU and feels like things are stable Current History: Fly is a 24-year-old young man with spina bifida, nonverbal learning disorder, anxiety and ADHD. He has had some low motivation and possible depressive symptoms and has been takinga combination of Wellbutrin, Zoloft, Abilify, and methylphenidate. 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 He has been working now for about 3 weeks and works 21 hours a week. He shares that he has had positive feedback from his fiberglass boat assembly supervisor regarding his work performance. He feels like his mood has been very good, he is motivated. 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 Pharmacologically tells me that has added back the short-acting methylphenidate in the afternoon since he has been working. He tells me he can feel that his thinking gets more ???cloudy,?? by about 1 in the afternoon and he takes the short-acting to help him through the rest of his work day and findsit very effective. Mom was briefly involved with the visit on phone before connecting with Fly on video. Mom sharesthat she also believes things are going much better for him. Medical Review of Systems: There were no vitals filed for this visit. no side effects and no issues with pain Labs:No indication for labs at this time. AIMS/DISCUS:N/A Chemical Use: none Social History Living Situation: bio parents Activities: has few friends, no/limited extracurricular activities. Working at [employer] as a parking cashier about 20 hours a week Education: Taking one online class Therapy: None Other Services: Sprinkle worker Mental Status Exam: Fly is seen sitting at his desk, affect is bright and he is very talkative and interactive. Speech is unremarkable in production but his use of language tends to be more concrete than expected for his age. He lacks spontaneous social conversation typical for his age but does answer questions when he is asked. He tells me his mood is ???really pretty good,?? and his affect is bright throughout her visit. Content of the interview is about his recent job, his improved mood. Histhought process is organized but concrete. He is alert, cognitively fund of knowledge is good, he isquite focused today, talks about recent events, past occurrences, memory seems to be good. Insight and judgment are adequate. Assessment: Fly is very upbeat and pleasant today. His mood and anxiety seem to be much improved. I suspect much of his benefit is related to his job. He is getting out on a regular basis and reports that he has had a positive evaluation from his fiberglass boat assembly supervisor at work that he is doing a good job. Ayde agrees that things are going well a. Both mom and Fly feel like the medications have been very effective an are not looking to make any specific changes today. I suggested that if he continuesto do well he can check back in 3 months time period Risk Assessment: The patient is at low risk for aggression. Diagnosis:ADHD, NVLD, anietty NOS, spina bifida Plan: Continue current meds [...] plans Discussed healthy eating and exercise Discussed transition to adulthood issues Labs ordered Appointment in: 3 months, or earlier if needed Visit Summary: complex evaluation and medication management. Humera Bush MD This note created using speech-recognition software and may contain unintended word substitutions. 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) [facility] Method Time Signature Hemoglobin A1C 4.7 <=5.6 % 07/11/2020 [facility] 2:13 PM MACHINE REPAIRMAN [facility] Specimen Anatomical Collection Method / Collection Time Recei rufus Time (Source) Location / Volume Laterality Blood Venipuncture / 07/11/2020 8:15 07/11/2020 8:15 Unknown AM MACHINE REPAIRMAN AM MACHINE REPAIRMAN Humera Bush MD LAB_1 Performing Organization Address City/State/ZIP Code Phon e Number [facility] [address] [address] Lipid Panel and Direct LDL(If Needed) (07/11/2020 8:15 AM MACHINE REPAIRMAN) [facility] Method Time Signature Cholesterol 180 0 - 199 07/11/2020 [facility] mg/dL 11:48 AM MACHINE REPAIRMAN [facility] Triglyceride 85 <=149 07/11/2020 [facility] mg/dL 11:48 AM MACHINE REPAIRMAN [facility] HDL Cholesterol 44 >=40 07/11/2020 [facility] mg/dL 11:48 AM MACHINE REPAIRMAN [facility] LDL, Calculated 119 <130 07/11/2020 [facility] mg/dL 11:48 AM MACHINE REPAIRMAN [facility] Non HDL Chol, 136 mg/dL 07/11/2020 [facility] Calculated 11:48 AM MACHINE REPAIRMAN [facility] Cholesterol/HDL 4.1 07/11/2020 [facility] Ratio 11:48 AM MACHINE REPAIRMAN [facility] Hours Fasting 14 07/11/2020 [facility] 11:48 AM MACHINE REPAIRMAN Specimen Anatomical Collection Method / Collection Time Recei rufus Time (Source) Location / Volume Laterality Blood Venipuncture / 07/11/2020 8:15 07/11/2020 8:15 Unknown AM MACHINE REPAIRMAN AM MACHINE REPAIRMAN Humera Bush MD LAB_1 Performing Organization Address City/State/ZIP Code Phon e Number [facility] [address] [address] [facility] [address] [place], [place] [phone] documented in this encounter Visit Diagnoses Diagnosis ADHD (attention deficit hyperactivity di sorder), inattentive type ([facility]) - Primary Attention deficit disorder with hyperact ivity Nonverbal learning disorder Major depressive disorder, single episod e, severe ([facility]) Major depressive disorder, single episod e, severe, without mention of psychotic behavior documented in this encounter Care Teams Regional Sales Leader Relationship Specialty Start Date End Date Rob Tillman MD PCP - General Physical Medicine and 08/01/[address] [place] [address] [place] [address] documented as of this encounter
--- OUTSIDE RECORDS SUMMARY | 2022-05-27 10:15 | XMS_ITS | Encounter Summary ---
:1995 Author Organization [employer] Address [address] [place] [address] Care Team Providers Name Role Phone Rob Tillman MD Primary Care Provider Reason for Visit Reason Onset Date Comments Reeve 03/05/2020 Refill 03/05/2020 concerta Encounter Details Date Type Department Care Team Description 03/05/2020 Refill [place] [facility] Humera Bush Reeve; Refill [address] 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 Tomeka Adams RN 03/05/2020, 11:08 AM documented in this encounter Plan of Treatment Upcoming Encounters Date Type Specialty Care Team Description 06/12/2022 Appointment Urology Raj Castro MD [address] [place], [place] [address] (Wo rk) 09/28/2022 Telemedicine Psychiatry Humera Bush MD [address] [place], [place] [address] (Wo rk) documented as of this encounter Visit Diagnoses Not on filedocumented in this encounter Care Teams Manager Payroll Relationship Specialty Start Date End Date Rob Tillman MD PCP - General Physical Medicine and 08/01/19 295 [facility] [place] [place] [address] documented as of this encounter
--- OUTSIDE RECORDS SUMMARY | 2022-05-27 10:15 | XMS_ITS | Encounter Summary ---
:1995 Author Organization [facility] Address [address], [place] [address] Care Team Providers Name Role Phone Rob Tillman MD Primary Care Provider Encounter Details Date Type Department Care Team Description 09/17/2020 Lab Visit [facility] 435 Neurogenic bladder Laboratory 435 [facility] 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 documented in this encounter Results Creatinine / GFR (09/17/2020 4:22 PM CDT) Patholo gist Method Time Signature Creatinine 0.82 0.73 - 09/17/2020 [facility] 1.[facility] 6:52 PM CDT [facility]AL [facility] mg/dL GFR, Estimated >60 >60 09/17/2020 [facility] mL/min/1. 6:52 PM CDT CENTRAL LAB 73m2 Specimen Anatomical Collection Method / Collection Time Recei rufus Time (Source) Location / Volume Laterality Blood Venipuncture / 09/17/2020 4:22 09/17/2020 4:22 Unknown PM CDT PM CDT Raj Castro MD LAB_1 Performing Organization Address City/State/ZIP Code Phon e Number [facility]AL [facility] [address] [phone] documented in this encounter Visit Diagnoses Diagnosis Neurogenic bladder Neurogenic bladder, NOS documented in this encounter Care Teams Production Line Manager Relationship Specialty Start Date End Date Rob Tillman MD PCP - General Physical Medicine and 08/01/[address] [place] [address] [place] [address] documented as of this encounter
--- OUTSIDE RECORDS SUMMARY | 2022-05-27 10:15 | XMS_ITS | Encounter Summary ---
:1996 Author Organization [employer] Address [address] [place] [address] Care Team Providers Name Role Phone Rob Tillman MD Primary Care Provider Reason for Visit Reason Comments Procedure Urodynamics Procedure/Equipment (Routine) - Closed Specialty Diagnoses / Procedures Referred By Contact Refer red To Contact Diagnoses Neurogenic bladder Raj Castro MD [address] [place] [address] Referral ID Status Reason Start Date Expiration Date Visits Requ ested Visits Authorized [id number] Closed 09/17/2020 12/17/2021 1 1 Encounter Details Date Type Department Care Team Description 10/14/2020 Office Visit Specialty [facility] [address] U[facility] [address] [place] [address]. 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 You have just completed a Urodynamics Evaluation. ?? You may resume your usual activities and diet. ?? To avoid complications, please drink 4 to 6 large glasses of water or juice today and tomorrow. (If suffering from incomplete emptying, please ask the licensed occupational therapy assistant about specific directions). There are generally no adverse of long lasting side effects from Urodynamics testing. You may, however, experience a burning sensation of pass a small amount of blood when urinating for the next 24 to 48 hours. This is considered normal following catheterization. Please contact Dr. Raj Castro at [phone] if any problems should arise or you experience any of the following after 48 to 72 hours: ?? Burning, frequency, urgency or pain with urination ?? Blood in urine ?? Lower back pain ?? Fever ?? Foul odor The above symptoms can be caused by an infection of the urinary tract / bladder (UTI) and you may need to be seen in our office for a follow up visit. documented in this encounter Plan of Treatment Upcoming Encounters Date Type Specialty Care Team Description 06/12/2022 Appointment Urology Raj Catsro MD [address] [place], [place] [address] (Wo rk) 09/28/2022 Telemedicine Psychiatry Humera Bush MD [address] [place], [place] [address] (Wo rk) Scheduled Referrals Name Type Priority Associated Diagnoses Order S chedule URODYNAMICS (UDS) Referral Routine Neurogenic bladder Orde red: 09/17/2020 documented as of this encounter Visit Diagnoses Not on filedocumented in this encounter Care Teams Field Artillery Basic Relationship Specialty Start Date End Date Rob Tillman MD PCP - General Physical Medicine and 08/01/19 [address] [facility] Rehabilitation [place], [place] [phone] documented as of this encounter
--- OUTSIDE RECORDS SUMMARY | 2022-05-27 10:15 | XMS_ITS | Encounter Summary ---
:1995 Author Organization [facility] Address [address] [place] [address] Care Team Providers Name Role Phone Rob Tillman MD Primary Care Provider Reason for Referral Procedure/Equipment (Routine) - Closed Specialty Diagnoses / Procedures Referred By Contact Refer red To Contact Diagnoses Neurogenic bladder Raj Castro MD [address] [place] [address] Referral ID Status Reason Start Date Expiration Date Visits Requ ested Visits Authorized [id number] Closed 09/17/2020 12/17/2021 1 1 Scheduling Instructions . Reason for Visit Reason Comments Follow-up kindey ultrasound Encounter Details Date Type Department Care Team Description 09/17/2020 Office Visit Specialty Center Raj Castro, Allyson rogenic bladder [facility] (Primary Dx) [facility]. 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 Your follow up appointment will be scheduled with one of the urology care team members. This may be one of our physician assistants or nurse practitioners. They are always in direct communication with your physician who remains responsible for your urologic care at [facility]. For Xray, CT test, and Ultrasound results, [...] you! Get Cost of Care Estimates - [phone] The health insurance marketplace has changed dramatically in the last few years. Our cost of care service will provide estimates over the phone for treatments or procedures billed through [facility]. To receive a cost estimate, simply call [phone] during regular business hours. If you have insurance coverage, you will need to verify your policy of coverage with your health planby calling the number located on the back of your insurance card and talking to member services. Urodynamic Studies: About These TestsURODYNAMIC TESTING INFORMATION AND PREPARATION Your physician has ordered Urodynamic testing in order to evaluate your urinary function. During this test we will try to reproduce your bladder symptoms. The information gathered from the testing willallow your physician to determine the cause of your urinary problem(s) and the best treatment for you. INSTRUCTIONS FOR THE DAY OF TESTING 1. You should come to your appointment with a Moderately full bladder. 2. You will be asked to sign an informed consent at the time of your procedure. A parent or legal guardian must accompany a child or anyone not capable of giving informed consent for themselves. 3. You may eat and drink before this test. 4. You may take your normal medications, except anticholinergic. If you are taking an anticholinergic (oxybutynin, ditropan, sanctura, vesicare, detrol, myrbetriq, trospium chloride, solifenacin succinate, mirabegron), please stop 3 days before testing or your testing may be cancelled. ??? Urodynamic testing takes approximately 1?? hours. ??? For further information regarding urodynamics testing (also called cystometry) please go to [email or web address] and type in the search box ???urodynamics?? . ??? If there are special needs that you have or questions you need answered, please contact [phone]. What is urodynamic testing? Urodynamic testing is a group of tests that show how your body stores and releases urine. The type of test varies from person to person. A simple urodynamic test is done in a doctor's office. Other tests may be done in a hospital or surgery center. Why is this test done? These tests are done to help find out why a person has symptoms such as: ?? Leaking urine. ?? Feeling the need to urinate often. ?? Pain when urinating. ?? A weak stream of urine. ?? Frequent urinary tract infections. How do you prepare for the test? You may be asked to arrive for the test with a full bladder. How is the test done? For basic urodynamic testing: ?? You will urinate into a container while the amount of urine and how fast it flows out of the bladder are measured. ?? A thin, flexible tube called a catheter is then inserted into the bladder through the urethra. The urethra is the tube that carries urine from the bladder to the outside of the body. This catheter helps measure how much urine is still in the bladder. ?? The bladder may be filled with water through the catheter until you have the first urge to urinate. The amount of water in the bladder is measured at this point. Then more water may be added while you resist urinating until you no longer can keep from urinating. ?? The doctor will remove the catheter. ?? Sometimes X-rays are taken during a test. If they are, your bladder may be filled with fluid thatwill show up on an X-ray. How long does the test take? How long the test will take depends on the type of test you have. Ask your doctor how long your specific test or tests should take. What happens after the test? ?? You will probably be able to go home right away. It depends on the reason for the test. ?? You can go back to your usual activities right away. ?? You may be sore after the test. Soaking in a warm tub may help. Follow-up care is a duran part of your treatment and safety. Be sure to make and go to all appointments, and call your doctor if you are having problems. It's also a good idea to keep a list of the medicines you take. Ask your doctor when you can expect to have your test results. Where can you learn more? 1. Go to [email or web address].[email or web address]/healthlibrary. 2. Enter S106 in the search box. Current as of: December 25, 2019?Content Version: 12.8 ?? [employer]. Care instructions adapted under license by your healthcare professional. If you have questions abouta medical condition or this instruction, always ask your healthcare professional. [employer] disclaims any warranty or liability for your use of this information. documented in this encounter Progress Notes Raj Castro MD - 09/17/2020 3:15 PM CDT Images from the original note were not included. Visit and Exam date: 09/17/2020 Assessment Encounter Diagnosis Name Primary? Neurogenic bladder Yes Plan In office renal ultrasound performed. Please see procedure note. Creatinine ordered to assess renal function Urodynamics recommended for longitudinal surveillance of neurogenic bladder and to confirm normal compliance and assess current cystometric capacity. We discussed the risks, benefits alternatives and details with regards to performance of this. May also provide insight into subjective complaints of uri nary hesitancy, which may be due to pelvic floor dysfunction. RTC 1 year for in person exam. Can review urodynamic testing via video visit once completed Please see the After Visit Summary for counseling, advice, and precautions that I gave the patient during today's visit. The clinical visit today with the patient was documented using dictation software. 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 old male seen in clinic today Fly has a history of the following: Neurogenic bladder in the setting of history of spina bifida Please see prior urologic notes Workup/treatments/issues in the interim since last appointment: No acute urologic issues the interim. Has complaints of urinary hesitancy but this is been stable. Denies any issues with urinary tract infections or hospitalizations due to urinary tract infection. Fly notes the following: Hematuria in the [...] ? Molds [employer] Smuts Other, see comments Berger mold- Respiratory Distress ??? Other Swelling Spider Venom: Severe local swelling No past medical history on file. Objective BP 133/85 (BP Location: Right Arm, BP Cuff Size: Regular) Pulse 83 Pleasant and engaging. No apparent distress. Creatinine Date Value 09/17/2020 0.82 mg/dL 04/20/2020 0.90 mg/dL 04/21/2018 0.93 mg/dl Creatinine Whole Blood (mg/dL) Date Value 04/20/2019 0.9 Ultrasound procedure note Name: Fly Moran Date: 09/18/20 Exam: Limited renal ultrasound Technique: Continuous sonographic imaging of the Left and right kidneys were assessed for moore scale appearancewith the use of 3.5 mHz transducer Findings: The Left kidney was normal in echogenicity. Size of the Left kidney was 10.2 cm. Hydronephrosis was identified and mild. Documentation images were obtained The Right kidney was normal in echogenicity. Size of the Right kidney was 9.6 cm. Hydronephrosis wasidentified and mild. Documentation images were obtained Raj Castro MD documented in this encounter Plan of Treatment Upcoming Encounters Date Type Specialty Care Team Description 06/12/2022 Appointment Urology Raj Castro MD [address] [place], [place] [address] (Wo rk) 09/28/2022 Telemedicine Psychiatry Humera Bush MD [address] [place], [place] [address] (Wo rk) Scheduled Referrals Name Type Priority Associated Diagnoses Order S chedule URODYNAMICS (UDS) Referral Routine Neurogenic bladder Orde red: 09/17/2020 documented as of this encounter Results Creatinine / GFR (09/17/2020 4:22 PM CDT) [facility] Method Time Signature Creatinine 0.82 0.73 - 09/17/2020 [email or web address] 1.18 6:52 PM CDT [facility] mg/dL GFR, Estimated >60 >60 09/17/2020 [facility] mL/min/1. 6:52 PM CDT [facility] 73m2 Specimen Anatomical Collection Method / Collection Time Recei rufus Time (Source) Location / Volume Laterality Blood Venipuncture / 09/17/2020 4:22 09/17/2020 4:22 Unknown PM CDT PM CDT Raj Castro MD LAB_1 Performing Organization Address City/State/ZIP Code Phon e Number [facility] [address] [place] [id number] documented in this encounter Visit Diagnoses Diagnosis Neurogenic bladder - Primary Neurogenic bladder, NOS documented in this encounter Care Teams Staffing Director Relationship Specialty Start Date End Date Rob Tillman MD PCP - General Physical Medicine and 08/01/[address] [place] [address] [place] [address] documented as of this encounter
--- OUTSIDE RECORDS SUMMARY | 2022-05-27 10:15 | XMS_ITS | Encounter Summary ---
:1995 Author Organization [employer] Address [address] [place] [address] Care Team Providers Name Role Phone Rob Tillman MD Primary Care Provider Reason for Visit Reason Onset Date Comments Reeve 06/18/2020 Refill 06/18/2020 Encounter Details Date Type Department Care Team Description 06/18/2020 Refill [facility] Humera Guerrero MD Reeve; Refill 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 Tomeka Adams RN 06/19/2020, 10:57 AM HIP LEADER Anabel Funk - 06/19/2020 10:38 AM CST F/u 07/09 Anabel Funk HIP LEADER Stacy Leach - 06/18/2020 9:50 AM CST Lm Tcb X1. HIP LEADER Tomeka Adams RN - 06/18/2020 9:12 AM CST No follow up appointment scheduled. Last seen 04/12/20 and was to return in 1 month. Will route to clinic charge nurse to attempt to schedule patient. Please route back to nursing to authorize once scheduled for appointment. Thanks. Tomeka Adams RN 06/18/2020, 9:12 AM HIP LEADER Lynette Joshi - 06/18/2020 8:05 AM CST PT doesn't have a dose for today - totally out. Lynette Joshi 06/18/2020, 8:06 AM HIP LEADER documented in this encounter Plan of Treatment Upcoming Encounters Date Type Specialty Care Team Description 06/12/2022 Appointment [facility]rology [facility] Castro MD [address] [facility] [place] [place] [address] (Wo rk) 09/28/2022 Telemedicine Psychiatry Humera Bush MD [address] [place], [place] [address] (Wo rk) documented as of this encounter Visit Diagnoses Not on filedocumented in this encounter Care Teams Ultrasound Tech Relationship Specialty Start Date End Date Rob Tillman MD PCP - General Physical Medicine and 08/01/19 [address] [facility] [place] [address] documented as of this encounter
--- OUTSIDE RECORDS SUMMARY | 2022-05-27 10:16 | XMS_ITS | Encounter Summary ---
:1995 [facility] Address [address] [place] [address] Care Team Providers Name Role Phone Rob Tillman MD Primary Care Provider Reason for Visit Reason Comments LETTER NEEDED [facility]-Letter/Certifi miguelangel of Medical Necessity. Encounter Details Date Type Department Care Team Description 08/28/2019 Telephone [facility] Rob Tillman LETTER NEE DED ([facility]-Letter/Certific Physical Medicine [address] ate of Medical [address] 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 Sent to scanning. Josias Gee 08/29/2019, 8:39 AM CING TECHNICIAN Rob Tillman MD - 08/28/2019 4:43 PM CST Form completed, given to clinic physician director for faxing. Rob Tillman MD 08/28/2019, 4:43 PM CING TECHNICIAN Chantelle Blank, RN - 08/28/2019 1:45 PM CST On MD desk Chantelle Blank RN 08/28/2019, 1:45 PM CING TECHNICIAN Josias Gee - 08/28/2019 9:23 AM CST Rec'd fax [facility]-Letter/Certificate of Medical Necessity. Placed fax in providers right fax folder for review. Josias Gee 08/28/2019, 9:23 AM CING TECHNICIAN documented in this encounter Plan of Treatment Upcoming Encounters Date Type Specialty Care Team Description 06/12/2022 Appointment Urology Raj Castro MD [address] [place], [place] [address] (Wo rk) 09/28/2022 Telemedicine Psychiatry Humera Bush MD [address] [place], [place] [address] (Wo rk) documented as of this encounter Visit Diagnoses Not on filedocumented in this encounter Care Teams Barrel Centerer Relationship Specialty Start Date End Date Rob Tillman MD PCP - General Physical Medicine and 08/01/19 [address] [facility] [place] [address] documented as of this encounter
--- OUTSIDE RECORDS SUMMARY | 2022-05-27 10:16 | XMS_ITS | Encounter Summary ---
:1995 [facility] Address [address] [place] [address] Care Team Providers Name Role Phone Rbo Tillman MD Primary Care Provider Reason for Visit Procedure/Equipment (Routine) - Incomplete Specialty Diagnoses / Procedures Referred By Contact Refer red To Contact Diagnoses Scoliosis of thoracic spine, unspecified scoliosis type Nataliia Henry PA-C Procedures CT Thoracic Spine WO IV Cont [address] [place] [address] Referral ID Status Reason Start Date Expiration Date Visits V isits Requested Authorized [id number] Incomplete 08/22/2019 11/20/2020 1 1 Encounter Details Date Type Department Care Team Description 08/28/2019 [facility] Scoliosis of thoracic spine, unspecified scoliosis type; Procedure [facility] E, PA-C 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 CT THORACIC SPINE Routine 08/28/2019 9:38 AM Scoliosis of thor acic Results for this WO IV CONT FOOT CUTTER spine, unspecified procedure are in scoliosis type the results section. documented in this encounter Results CT Lumbar Spine WO IV Cont (08/28/2019 9:38 AM FOOT CUTTER) Anatomical Region Laterality Modality Spine, L-Spine Computed Tomography Specimen (Source) Anatomical Collection Method Collection Time Re ceived Time Location / / Volume Laterality 08/28/2019 9:38 AM FOOT CUTTER Narrative 08/28/2019 1:08 PM FOOT CUTTER EXAM: CT THORACIC SPINE WO IV CONT, CT LUMBAR SPINE WO IV CONT LOCATION: [facility] DATE/TIME: 08/28/2019 9:38 AM INDICATION: T-spine fusion, follow up; e valuate above t8-l5 fusion COMPARISON: Scoliosis radiographs 2019 TECHNIQUE: THORACIC SPINE CT: Routine without IV co ntrast. Multiplanar reformats. Dose reduction techniques were used. LUMBAR SPINE CT: Routine without IV cont rast. Multiplanar reformats. Dose reduction techniques were used. FINDINGS: THORACIC AND LUMBAR SPINE CT: VERTEBRA: Redemonstration of 45 degrees levoconvex curvature of the upper thoracic spine and 35 degrees dextroconvex curvature of the mid thoracic spine, overall unchanged in the 08/22/2019 thoracic spine radiogr aph study. Redemonstration of the T8-L4 right-sided fusion hardware, unchanged in appearance. No evidence of interval hardware complication such as fracture or hardware loosening. There are multilevel laminectomies from T12 through L5. There is solid osseous fusion across the disc spaces from T8 through L4 as well as solid dorsal lateral osseous fusion of the posterior elements across the hardware construct. There are erosive endplate changes along the anterior superior aspect of the T8 endplate as well as along the anterior inferior L4 endplate. There is moderate to severe left-sided l oss of disc height at T7-T8 secondary to the scoliotic curvature. Additionally, there is moderate to sever e right-sided loss of disc height at T5- T6 secondary to the curvature. There is moderate left-sided loss of dis c height at L4-L5. CANAL/FORAMINA: There is moderate to sev ere bilateral neural foraminal stenosis at T7-T8. There is moderate to severe right and moderate left neural foraminal stenosis at T12-L1. There is moderate to se armando right and moderate left neural fora dwaine stenosis at L1-L2. Mild to moderate bilateral neural foraminal stenosis at L2-L3. Mild to moderate bilateral neural foraminal stenosis at L3-L4. Moderate ri ght and severe left neural foraminal ysabel nosis at L4-L5. Moderate bilateral neural foraminal stenosis at L5-S1. At T7-T8, there is a left central disc p rotrusion which results in mild to moderate to possibly moderate left-sided spinal canal stenosis. EXTRASPINAL: Unremarkable. No nodules in the visualized lung parenchyma. IMPRESSION: THORACIC SPINE CT: 1. ??Redemonstration of the T8-L4 right- sided fusion hardware unchanged compared to the scoliosis radiographs dated 08/22/2027. No evidence of interval hardware fracture or loosening. 2. ??There is solid osseous fusion acros s the T8-L4 disc spaces as well as the posterior elements. 3. ??There are erosive degenerative endp late changes along the anterior superior aspect of the T8 endplate. 4. ??At T7-T8, there is a left central d isc protrusion which results in mild to moderate to possibly moderate left-sided spinal canal stenosis. 5. ??There is moderate to severe bilater al neural foraminal stenosis at T7-T8. There is moderate to severe right and moderate left neural foraminal stenosis at T12-L1. 6. ??There is moderate to severe left-si ded loss of disc height at T7-T8, and moderate to severe right-sided loss of disc height at T5-T6. LUMBAR SPINE CT: 1. ??Multilevel laminectomies from T12-L 5. 2. ??No significant spinal canal stenosi s. 3. ??Erosive degenerative endplate yoo es along the anterior inferior L4 endplate. 4. ??There is moderate to severe right a nd moderate left neural foraminal stenosis at L1-L2. 5. ??There is moderate right and severe left neural foraminal stenosis at L4-L5. 6. ??There is moderate bilateral neural foraminal stenosis at L5-S1. Procedure Note Dontae Jones MD - 08/28/2019For matting of this note might be different from the original. EXAM: CT THORACIC SPINE WO IV CONT, CT L UMBAR SPINE WO IV CONT [facility]: [facility] DATE/TIME: 08/28/2019 9:38 AM INDICATION: T-spine fusion, follow up; e valuate above t8-l5 fusion COMPARISON: Scoliosis radiographs 2019 TECHNIQUE: THORACIC SPINE CT: Routine without IV co ntrast. Multiplanar reformats. Dose reduction techniques were used. LUMBAR SPINE CT: Routine without IV cont rast. Multiplanar reformats. Dose reduction techniques were used. FINDINGS: THORACIC AND LUMBAR SPINE CT: VERTEBRA: Redemonstration of 45 degrees levoconvex curvature of the upper thoracic spine and 35 degrees dextroconvex curvature of the mid thoracic spine, overall unchanged in the 08/22/2019 thoracic spine radiograph study. Redemonstration of the T8-L4 right-sided fusion hardware, unchanged in appearance. No evidence of interval hardware complication such as fracture or hardware loosening. There are multilevel laminectomies from T12 through L5. There is solid osseous fusion across the disc spaces from T8 through L4 as well as solid dorsal lateral osseous fusion of the posterior elements across the hardware construct. There are erosive endplate changes along the anterior superior aspect of the T8 endplate as well as along the anterior inferior L4 endplate. There is moderate to severe left-sided l oss of disc height at T7-T8 secondary to the scoliotic curvature. Additionally, there is moderate to sever e right-sided loss of disc height at T5- T6 secondary to the curvature. There is moderate left-sided loss of dis c height at L4-L5. CANAL/FORAMINA: There is moderate to sev ere bilateral neural foraminal stenosis at T7-T8. There is moderate to severe right and moderate left neural foraminal stenosis at T12-L1. There is moderate to severe right and moderate left neural foraminal stenosis at L1-L2. Mild to moderate bilateral neural foraminal stenosis at L2-L3. Mild to moderate bilateral neural foraminal stenosis at L3-L4. Moderate right and severe left neural foraminal stenosis at L4-L5. Moderate bi lateral neural foraminal stenosis at L5-S1. At T7-T8, there is a left central disc p rotrusion which results in mild to moderate to possibly moderate left-sided spinal canal stenosis. EXTRASPINAL: Unremarkable. No nodules in the visualized lung parenchyma. IMPRESSION: THORACIC SPINE CT: 1. Redemonstration of the T8-L4 right-si ded fusion hardware unchanged compared to the scoliosis radiographs dated 08/22/2027. No evidence of interval hardware fracture or loosening. 2. There is solid osseous fusion across the T8-L4 disc spaces as well as the posterior elements. 3. There are erosive degenerative endpla te changes along the anterior superior aspect of the T8 endplate. 4. At T7-T8, there is a left central dis c protrusion which results in mild to moderate to possibly moderate left-sided spinal canal stenosis. 5. There is moderate to severe bilateral neural foraminal stenosis at T7-T8. There is moderate to severe right and moderate left neural foraminal stenosis at T12-L1. 6. There is moderate to severe left-side d loss of disc height at T7-T8, and moderate to severe right-sided loss of disc height at T5-T6. LUMBAR SPINE CT: 1. Multilevel laminectomies from T12-L5. 2. No significant spinal canal stenosis. 3. Erosive degenerative endplate changes along the anterior inferior L4 endplate. 4. There is moderate to severe right and moderate left neural foraminal stenosis at L1-L2. 5. There is moderate right and severe le ft neural foraminal stenosis at L4-L5. 6. There is moderate bilateral neural fo raminal stenosis at L5-S1. Matthew Hansen MD RAD CT CT Thoracic Spine WO IV Cont (08/28/2019 9:38 AM FOOT CUTTER) Anatomical Region Laterality Modality Spine, T-Spine, Skeletal Computed Tomogr aphy Specimen (Source) Anatomical Collection Method Collection Time Re ceived Time Location / / Volume Laterality 08/28/2019 9:38 AM FOOT CUTTER Narrative 08/28/2019 1:08 PM FOOT CUTTER EXAM: CT THORACIC SPINE WO IV CONT, CT LUMBAR SPINE WO IV CONT [facility]: [facility] DATE/TIME: 08/28/2019 9:38 AM INDICATION: T-spine fusion, follow up; e valuate above t8-l5 fusion COMPARISON: Scoliosis radiographs 2019 TECHNIQUE: THORACIC SPINE CT: Routine without IV co ntrast. Multiplanar reformats. Dose reduction techniques were used. LUMBAR SPINE CT: Routine without IV cont rast. Multiplanar reformats. Dose reduction techniques were used. FINDINGS: THORACIC AND LUMBAR SPINE CT: VERTEBRA: Redemonstration of 45 degrees levoconvex curvature of the upper thoracic spine and 35 degrees dextroconvex curvature of the mid thoracic spine, overall unchanged in the 08/22/2019 thoracic spine radiogr aph study. Redemonstration of the T8-L4 right-sided fusion hardware, unchanged in appearance. No evidence of interval hardware complication such as fracture or hardware loosening. There are multilevel laminectomies from T12 through L5. There is solid osseous fusion across the disc spaces from T8 through L4 as well as solid dorsal lateral osseous fusion of the posterior elements across the hardware construct. There are erosive endplate changes along the anterior superior aspect of the T8 endplate as well as along the anterior inferior L4 endplate. There is moderate to severe left-sided l oss of disc height at T7-T8 secondary to the scoliotic curvature. Additionally, there is moderate to sever e right-sided loss of disc height at T5- T6 secondary to the curvature. There is moderate left-sided loss of dis c height at L4-L5. CANAL/FORAMINA: There is moderate to sev ere bilateral neural foraminal stenosis at T7-T8. There is moderate to severe right and moderate left neural foraminal stenosis at T12-L1. There is moderate to se armando right and moderate left neural fora dwaine stenosis at L1-L2. Mild to moderate bilateral neural foraminal stenosis at L2-L3. Mild to moderate bilateral neural foraminal stenosis at L3-L4. Moderate ri ght and severe left neural foraminal ysabel nosis at L4-L5. Moderate bilateral neural foraminal stenosis at L5-S1. At T7-T8, there is a left central disc p rotrusion which results in mild to moderate to possibly moderate left-sided spinal canal stenosis. EXTRASPINAL: Unremarkable. No nodules in the visualized lung parenchyma. IMPRESSION: THORACIC SPINE CT: 1. ??Redemonstration of the T8-L4 right- sided fusion hardware unchanged compared to the scoliosis radiographs dated 08/22/2027. No evidence of interval hardware fracture or loosening. 2. ??There is solid osseous fusion acros s the T8-L4 disc spaces as well as the posterior elements. 3. ??There are erosive degenerative endp late changes along the anterior superior aspect of the T8 endplate. 4. ??At T7-T8, there is a left central d isc protrusion which results in mild to moderate to possibly moderate left-sided spinal canal stenosis. 5. ??There is moderate to severe bilater al neural foraminal stenosis at T7-T8. There is moderate to severe right and moderate left neural foraminal stenosis at T12-L1. 6. ??There is moderate to severe left-si ded loss of disc height at T7-T8, and moderate to severe right-sided loss of disc height at T5-T6. LUMBAR SPINE CT: 1. ??Multilevel laminectomies from T12-L 5. 2. ??No significant spinal canal stenosi s. 3. ??Erosive degenerative endplate yoo es along the anterior inferior L4 endplate. 4. ??There is moderate to severe right a nd moderate left neural foraminal stenosis at L1-L2. 5. ??There is moderate right and severe left neural foraminal stenosis at L4-L5. 6. ??There is moderate bilateral neural foraminal stenosis at L5-S1. Procedure Note Dontae Jones MD - 08/28/2019For matting of this note might be different from the original. EXAM: CT THORACIC SPINE WO IV CONT, CT L UMBAR SPINE WO IV CONT LOCATION: [facility] DATE/TIME: 08/28/2019 9:38 AM INDICATION: T-spine fusion, follow up; e valuate above t8-l5 fusion COMPARISON: Scoliosis radiographs 2019 TECHNIQUE: THORACIC SPINE CT: Routine without IV co ntrast. Multiplanar reformats. Dose reduction techniques were used. LUMBAR SPINE CT: Routine without IV cont rast. Multiplanar reformats. Dose reduction techniques were used. FINDINGS: THORACIC AND LUMBAR SPINE CT: VERTEBRA: Redemonstration of 45 degrees levoconvex curvature of the upper thoracic spine and 35 degrees dextroconvex curvature of the mid thoracic spine, overall unchanged in the 08/22/2019 thoracic spine radiograph study. Redemonstration of the T8-L4 right-sided fusion hardware, unchanged in appearance. No evidence of interval hardware complication such as fracture or hardware loosening. There are multilevel laminectomies from T12 through L5. There is solid osseous fusion across the disc spaces from T8 through L4 as well as solid dorsal lateral osseous fusion of the posterior elements across the hardware construct. There are erosive endplate changes along the anterior superior aspect of the T8 endplate as well as along the anterior inferior L4 endplate. There is moderate to severe left-sided l oss of disc height at T7-T8 secondary to the scoliotic curvature. Additionally, there is moderate to sever e right-sided loss of disc height at T5- T6 secondary to the curvature. There is moderate left-sided loss of dis c height at L4-L5. CANAL/FORAMINA: There is moderate to sev ere bilateral neural foraminal stenosis at T7-T8. There is moderate to severe right and moderate left neural foraminal stenosis at T12-L1. There is moderate to severe right and moderate left neural foraminal stenosis at L1-L2. Mild to moderate bilateral neural foraminal stenosis at L2-L3. Mild to moderate bilateral neural foraminal stenosis at L3-L4. Moderate right and severe left neural foraminal stenosis at L4-L5. Moderate bi lateral neural foraminal stenosis at L5-S1. At T7-T8, there is a left central disc p rotrusion which results in mild to moderate to possibly moderate left-sided spinal canal stenosis. EXTRASPINAL: Unremarkable. No nodules in the visualized lung parenchyma. IMPRESSION: THORACIC SPINE CT: 1. Redemonstration of the T8-L4 right-si ded fusion hardware unchanged compared to the scoliosis radiographs dated 08/22/2027. No evidence of interval hardware fracture or loosening. 2. There is solid osseous fusion across the T8-L4 disc spaces as well as the posterior elements. 3. There are erosive degenerative endpla te changes along the anterior superior aspect of the T8 endplate. 4. At T7-T8, there is a left central dis c protrusion which results in mild to moderate to possibly moderate left-sided spinal canal stenosis. 5. There is moderate to severe bilateral neural foraminal stenosis at T7-T8. There is moderate to severe right and moderate left neural foraminal stenosis at T12-L1. 6. There is moderate to severe left-side d loss of disc height at T7-T8, and moderate to severe right-sided loss of disc height at T5-T6. LUMBAR SPINE CT: 1. Multilevel laminectomies from T12-L5. 2. No significant spinal canal stenosis. 3. Erosive degenerative endplate changes along the anterior inferior L4 endplate. 4. There is moderate to severe right and moderate left neural foraminal stenosis at L1-L2. 5. There is moderate right and severe le ft neural foraminal stenosis at L4-L5. 6. There is moderate bilateral neural fo raminal stenosis at L5-S1. 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
--- OUTSIDE RECORDS SUMMARY | 2022-05-27 10:16 | XMS_ITS | Encounter Summary ---
:1995 Author Organization [facility] Address [address] [place] [address] Care Team Providers Name Role Phone Rob Tillman MD Primary Care Provider Reason for Referral Therapies (Routine) - Closed Specialty Diagnoses / Procedures Referred By Contact Refer red To Contact Diagnoses Spina bifida without hydrocephalus, unspecified spinal region (HRC) Gait abnormality Rob Tillman MD [address] [place] [id number] Referral ID Status Reason Start Date Expiration Date Visits Requ ested Visits Authorized [id number] Closed 09/01/2019 10/31/2019 1 1 Scheduling Instructions Your provider has recommended an appoint ment with a [facility] Physical Therapist. Please stop at the clinic check out desk for assistance with scheduling or if you prefer to call for your appointment you may call [facility] at [phone]. We suggest you call your [facility] insurance company about your coverage and benefits for this appointment. 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 Rob Tillman MD 09/01/2019, 5:02 PM RLOCKING MACHINE OPERATOR Chantelle Blank RN - 08/31/2019 1:50 PM CST [employer], called patient's mom- measuring for his new wheel chair Patient is currently going to school- so he is using his wheel chair more than ever [employer] thinks patient may benefit from pressure mapping as well If MD agrees- please place orders for Chantelle Blank RN 08/31/2019, 1:53 PM RLOCKING MACHINE OPERATOR Chantelle Blank RN - 08/31/2019 10:22 AM CST LMTCB Chantelle Blank RN 08/31/2019, 10:23 AM RLOCKING MACHINE OPERATOR Kasi Tillman - 08/29/2019 4:11 PM CST Pt's mother Is returning call please call Kasi Tillman 08/29/2019, 4:11 PM RLOCKING MACHINE OPERATOR Chantelle Blank RN - 08/28/2019 4:49 PM CST LMTCB Chantelle Blank RN 08/28/2019, 4:49 PM RLOCKING MACHINE OPERATOR Josias Gee - 08/28/2019 12:46 PM CST Patients mother Dariana, requesting a call back regarding some questions she has about pressure mapping. Please advise, Thank you. RLOCKING MACHINE OPERATOR documented in this encounter Plan of Treatment Upcoming Encounters Date Type Specialty Care Team Description 06/12/2022 Appointment Urology Raj Castro MD [address] [place], [place] [address] (Wo rk) 09/28/2022 Telemedicine Psychiatry Humera Bush MD [address] [place], [place] [address] (Wo rk) Scheduled Referrals Name Type Priority Associated Diagnoses Order S chedule Physical Therapy Referral Routine Spina bifida without Ord ered: 09/01/2019 hydrocephalus, unspecified spinal region (H [facility]) Gait abnormality documented as of this encounter Visit Diagnoses Diagnosis Spina bifida without hydrocephalus, unsp ecified spinal region (HRC) - Primary Gait abnormality Abnormality of gait documented in this encounter Care Teams Snag Grinder Relationship Specialty Start Date End Date Rob Tillman MD PCP - General Physical Medicine and 08/01/19 [address] [facility] [place] [place] [address] documented as of this encounter
--- OUTSIDE RECORDS SUMMARY | 2022-05-27 10:16 | XMS_ITS | Encounter Summary ---
:1995 Author Organization [facility] Address [address] [place] [address] Care Team Providers Name Role Phone Rob Tillman MD Primary Care Provider Reason for Visit Procedure/Equipment (Routine) - Closed Specialty Diagnoses / Procedures Referred By Contact Refer red To Contact Diagnoses Spina bifida without hydrocephalus, unspecified spinal region (HRC) Gait abnormality Rob Tillman MD Procedures Wheelchair Cushion [address] [place] [address] Referral ID Status Reason Start Date Expiration Date Visits Requ ested Visits Authorized [id number] Closed 04/03/2019 07/02/2020 1 1 Encounter Details Date Type Department Care Team Description 10/13/2019 Office Visit Caitlyn Mcknight Impaired mobility [facility], PT (Primary Dx) Physical Therapy [address] [facility] 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 Patient demonstrates impairments in strength, range of motion, functional mobility, gait and balance. 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 Pt was pressure mapped on his current Crystal cushion with no concerns with increased pressure in IT's or coccyx. Pt's pain is located at T7-8 level which is just proximal to his instrumentation and his current backrest height is just below his scapulae without lateralsupports therefore not providing the support he needs. He has noted scoliosis above his instrumentation level which is being assessed by Dr. Hansen because it has been progressing since his spinal fusion surgery. Pt will benefit from a higher backrest, possibly with lateral supports to provide greatersupport due to his scoliosis and further assessment to determine if a different cushion would help with improvement alignment and stability. Skilled Physical Therapy is necessary to assist with addresshis seating and mobility needs. Evaluation billed as Low Complexity as supported by: Physical Therapist exercised clinical decision-making of a low complexity. Goals (within 1 session): 1. Pt will attend a wheelchair evaluation and appropriate equipment will be discussed for the patient to increase her/his independence with mobility and MRADLs including but not limited to cooking, dressing and grooming-MET. 2. The evaluation will be completed by this therapist and sent to . A face to face visit between pt and Dr. Tillman will occur. PLAN Reason for Discharge: No further Skilled Physical Therapy necessary at this time and will discontinue skilled PT services at this time due to maximal benefit and completion of the clinic assessment and hold, with plan to discharge upon approval and obtaining the mobility device. Reassessment of mobility equipment or changein status of the individual may be required in the future but will occur prior to 04/13/2020. Treatment Plan: Home assessment/ trial to be completed by vendor to ensure safe maneuverability and appropriate device will be determined at that time. Pending home evaluation, a letter of medical necessity will be completed by this therapist and sent to . This letter will then be sent to insurance for pre-authorization. Upon approval from insurance, pt will receive the recommended mobility device and utilize this device in her/his home for increased independence and safety with MRADLs. [facility] Insurance Info: Today's Visit Number: 1 Progress Note Needed at Visit Number: 10 Medicare Insurance Info: Total Units Used (including today): Today's Visit Number: 1 Progress Note Needed at Visit Number: 10 Certification Period: 10/13/2019 - 01/10/20 Date of Onset: with worsening 08/15/2019 Vendor: [employer], although not present Treatment Diagnoses: ICD-10-CM 1. Impaired mobility Z74.09 Past Medical History, Diagnostic Tests, and Medications: Reviewed in [facility] [employer]. No past medical history on file. Patient Active Problem List Diagnosis ??? Hodgkin lymphoma, unspecified, lymph nodes of axilla and upper limb (HRC) ??? Spina bifida (HRC) ??? Alternating esotropia with A pattern, s/p bimedial recession 10/05/07, then repair consecutive XT with bimedial advancement 05/09/08 ??? Attention deficit hyperactivity disorder (ADHD), combined type (HRC) ??? Major depressive disorder, single episode, severe (HRC) ??? Mild intermittent asthma (HRC) ??? 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 (HRC) ??? ADHD (attention deficit hyperactivity disorder), inattentive type (HRC) ??? Nonverbal learning disorder Acetylcysteine (V-ZIZFUP-O-CYSTEINE OR), 1200mg daily, , Disp: , Rfl: ARIPiprazole (ABILIFY) 2 MG tablet, Take 5 mg by mouth daily., , Disp: , Rfl: Carnitine 250 MG, 500 mg Codeine daily., , Disp: , Rfl: cetirizine (ZYRTEC) 10 MG tablet, Take 1 Tablet by mouth., Note (06/30/2018): PRN, Disp: , Rfl: cholecalciferol (VITAMIN D3) 1000 units tablet, Take 1,000 Units by mouth daily., , Disp: , Rfl: methylphenidate (CONCERTA) 54 MG controlled release tablet, Take 54 mg by mouth daily. Hard script given, e script not working, , Disp: , Rfl: methylphenidate (RITALIN) 10 MG tablet, Take 10 mg by mouth daily as needed., , Disp: , Rfl: Multiple Vitamins-Minerals (CENTRUM ADULTS OR), daily., , Disp: , Rfl: sertraline (ZOLOFT) 50 MG tablet, Take 25 mg for one week then increase to 50 mg (Patient taking differently: Take 50 mg by mouth daily.), , Disp: 30 Tablet, Rfl: 1 WELLBUTRIN XL 300 MG 24 hour release tablet, , , Disp: , Rfl: No current facility-administered medications on file as of 10/13/2019. Past Surgical History: Procedure Laterality Date ??? STRABISMUS SURG; 2 HORIZONTAL [facility] Bilateral 05/09/2008 Medial rectus advancement OU ??? STRABISMUS SURG; 2 HORIZONTAL [facility] Bilateral 10/05/2007 A-pattern ET w/BSOOA. 4.5mm RMRc w/ / muscle w/ superior transposition. 4.0 mm LMRc 07/01 muscle superior transposition. Barriers/Restrictions: leg length discrepancy, spinal fusions from T8-L4 Precautions: none noted SUBJECTIVE Per thoracic CT scan on 08/28/2019: At T7-T8, there is a left central disc protrusion which results inmild to moderate to possibly moderate left-sided spinal canal stenosis. Pt arrives 10 minutes late to initial evaluation. Pt presents with his mother. 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 Pt presents for seating and mobility evaluation. Pt reports he was previously working with [employer] for his wheelchair needs and no longer is able due to that clinic not accepting Medicare. He go this manual w/c almost 5 years ago and cushion about 2 years ago. He is starting to see increased scoliosis and had surgery about 2011 for fusion. Prior to surgery he had backrest with lateral supports, but currently has a backrest that comes to just below his scapulae. He gets increased back pain after 10-12 minutes. The back pain is located between his shoulder blades and lateral at level just above his fusion. Last week he couldn't bend over to ties shoes and could not straighten up. He does not have skin breakdown on his buttocks. When doing school work hesits in a computer chair. He has lost some strength due to sitting more. He is working with Dr. Hansen due to changes in hi ventricles and changes in spine above his instrumentation. Fell downstairs and landed on his left elbow and was having pain and decreased range of motion, but it is resolved now.Gets skin break down between toes due AFO's and decreased circulation. Decreased sensation on right and no sensation on the left Pain: Current: 07/07, Location of Pain: (B) low back and Pain Quality: Aching Recent/Planned Surgeries: none Cardio-Respiratory Status: intact Current Seating/Mobility: (Type - Simulation Educator-Model) Chair: [employer] jasiel lila [employer], age: 4-5 years w/c Cushion: crystal basic, age: 2-3 years shortened seat length on left w/c Back: lumbar height, basic backrest , age: 4-5 years Funding source: Medicare Home Environment: Patient lives with family in a house. Entrance: stairs, with 4 steps with railing-family assists W/C Accessible Rooms: yes Community ADL: Transportation: car. Driving requirements: not a petrol tanker driver Employment/Educational requirements: currently in school Hobbies/Interests: school Prior Level of Function: Normal/Independent with all activities Current Level of Function: Patient is limited to walking household distances with (B) forearm crutches Patient is limited in static postures: sitting 10-20 minutes Previous Therapy for This Condition: No Current Family/Community Support: yes Patient Goals: Get a new cushion OBJECTIVE Estimated body mass index is 24.56 kg/m?? as calculated from the following: Height as of 09/07/19: 5' 1 (1.549 m). Weight as of 09/07/19: 130 lb (59 kg). Observation/ Posture: ROM: UE ROM: RIGHT LEFT Shoulder Flexion WNL WNL Shoulder Extension WNL WNL Shoulder Abduction WNL WNL Shoulder External Rotation WNL WNL Shoulder Internal Rotation WNL WNL Elbow Flexion WN: WNL Elbow Extension WNL WNL Wrist Flexion WNL WNL Wrist Extension WNL WNL LE ROM: Left hip fixed in Dysplastic left hip with suspected fusion of the left femoral head and ileum Lacking end range hip abduction (B) Ankle ROM not formally tested due to wearing AFO's Strength: UE MMT: RIGHT LEFT Shoulder Flexion 5/5 5/5 Shoulder Extension 5/5 5/5 Shoulder Abduction 5/5 5/5 Shoulder External Rotation 4+/5 4+/5 Shoulder Internal Rotation 5/5 5/5 Elbow Flexion 5/5 5/5 Elbow Extension 5/5 5/5 Wrist Flexion 5/5 5/5 Wrist Extension 5/5 5/5 LE MMT: Not formally tested,although antigravity strength in hip extensors and knee extensors which allows him to stand with UE support to perform sit to stand transfers No active movement in (B) ankle joints Balance: Sitting: Good sitting edge of mat without back suppport Standing: Fair with UE support for transfers Alignment: Pelvic Obliquity: left Scoliosis: Suspected multilevel spinal dysraphism from L3 through the upper sacrum. Dysplastic left hip with suspected fusion of the left femoral head and ileum. Hardware instrumentation of the proximal femur as seen previously. Major Curve: Dominant thoracic levocurvature measuring 45 degrees from T2 through T7, apex at T4.?? Minor Curve(s): Thoracolumbar dextrocurvature measuring 38 degrees from T8 through T4.?? Sagittal Balance: 2 cm positive. Pelvic rotation with shortened side on left Sensation: Impaired sensation on right LE, no sensation on left History of Pressure sores: yes, after surgeries from wearing HKAFO's on medial knee and became neurotic and required wound care Current pressure sores: no Pressure mapping: Seated on mat peak pressure on right IT 256mmHg and mild redness under left IT as well Seated on Crystal cushion 94 mmHg with no red hot spots Cognitive/Visual Status: Memory Skills: impaired, mild cognitive impaired Problem Solving: impaired, mild cognitive impaired Judgment: impaired, mild cognitive impaired Attn/Concentration: impaired, mild cognitive impaired Vision: intact-with glasses Hearing: intact Services: 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 ADL Status: Dressing: independent partially from sitting Bathing: independent from shower chair Feeding: independent Grooming/Hygiene: independent in standing with leaning against counter Toileting: independent- self cath Meal Prep: assist Home management: assist Bowel management: Continent Bladder management: Continent Mobility Skills: Bed to w/c transfer: independent with stand pivot transfer with use of UE's w/c to commode transfer: independent with stand pivot transfer with use of UE's Ambulation: NT, per pt report he can ambulate household distances Manual w/c propulsion: independent with good form Able to perform weight shifts: independent Type: lateral, anterior weight shifts, transfers Hours spent sitting in w/c each day: 9 CLINICAL CRITERIA / ALGORITHM SUMMARY: 1. Is there a mobility limitation causing an inability to safely participate in one or more MobilityRelated Activities of Daily Living in a reasonable time frame: yes. 2. Are there cognitive or sensory deficits (awareness/judgement/vision/etc) that limit the users ability to safely participate in one or more MRADL's? no. If yes, can they be accommodated/compensated for to allow use of a mobility assistive device to participate in MRADL's? N/A. 3. Does the user demonstrate the ability or potential ability and willingness to safely use the mobility assistive device? yes. 4. Can the mobility deficit be sufficiently resolved with only the use of a cane or walker? No, due to diagnosis of Spina Bifda with LE weakness and decreased range of motion pt is not a functional community ambulator 5. Does the user's environment support the use of a manual wheelchair? yes. 6. If a manual wheelchair is recommended, does the user have sufficient function/abilities to use the recommended equipment? yes. Pt has good form when propelling and does not complain of shoulder pain. 7. If a POV is recommended, does the user have sufficient stability and upper extremity function to operate it? N/A. 8. If a power wheelchair is recommended, does the user have sufficient function/abilities to use therecommended equipment? N/A. THERAPY OUTCOMES No outcome data collected. TODAY'S SESSION Initial Evaluation, Low Complexity (45 minutes) Wheelchair Management (15 minutes) Pt and pt's mother were educated that best option for managing pain may be a different backrest to assist with providing support and stabilty. Educated on process of obtaining new backrest and/or cushion as needed. Patient's Response to Therapy: Pt verbalizes understanding of plan of care and process for getting new backrest and/or cushion Home Program with Expected Frequency: N/A Timed Code Minutes: 15 minutes Untimed Code Minutes: 45 minutes Total Treatment Time: 60 minutes I, the undersigned, certify that the above prescribed, durable, medical equipment, is medically necessary as part of my treatment for Fly Moran. In my opinion, the equipment prescribed is reasonable and necessary according to the accepted standards of medical practice and treatment for impaired mobility and has not been prescribed as convenience equipment. If you require further information or clarification, please do not hesitate to contact this therapist at . Thank you for your prompt action with this matter. Sincerely, Caitlyn Dong, [facility] License # [id number] 10/13/2019 For Certifying Physician: Please sign below and fax this report, with your signature, to our clinic at [phone]. Your signature is required to continue treatment of the above patient per Medicare / Medical Assistance regulations. I certify / re-certify the need for the above services furnished under this treatment plan while under my care. Rob Tillman Date Associated attestation - Rob Tillman MD - 10/16/2019 8:39 AM CDT Rob Tillman MD 10/16/2019, 8:39 AM documented in this encounter Plan of Treatment Upcoming Encounters Date Type Specialty Care Team Description 06/12/2022 Appointment Urology Raj Castro MD [address] [place] [phone] (Wo rk) 09/28/2022 Telemedicine Psychiatry Humera Bush MD [address] [place] [address], [place] [phone] (Wo rk) documented as of this encounter Visit Diagnoses Diagnosis Impaired mobility - Primary Other ill-defined conditions documented in this encounter Care Teams Pure Pak Machine Operator Relationship Specialty Start Date End Date Rob Tillman MD PCP - General Physical Medicine and 08/01/19 [address] [facility] [place] [address] documented as of this encounter
--- OUTSIDE RECORDS SUMMARY | 2022-05-27 10:16 | XMS_ITS | Encounter Summary ---
:1995 Author Organization [facility] Address [address] [address] Care Team Providers Name Role Phone Rob Tillman MD Primary Care Provider Encounter Details Date Type Department Care Team Description 08/28/2019 Correspondence [facility] Rob Tillman ATIF [facility] MD Sophie CERTIFICATION OF Physical Medicine [address] [facility] [address] 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
--- OUTSIDE RECORDS SUMMARY | 2022-05-27 10:16 | XMS_ITS | Encounter Summary ---
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 AVA Meng documented in this encounter Plan of Treatment Upcoming Encounters Date Type Specialty Care Team Description 06/12/2022 Appointment Urology Raj Castro MD [address] [place], [place] [phone] (Wo rk) 09/28/2022 Telemedicine Psychiatry Humera Bush MD [address] [place], [place] [address] (Wo rk) documented as of this encounter Visit Diagnoses Not on filedocumented in this encounter Care Teams Tax Lawyer Relationship Specialty Start Date End Date Rob Tillman MD PCP - General Physical Medicine and 08/01/19 [address] [facility] [place] [address] documented as of this encounter
--- OUTSIDE RECORDS SUMMARY | 2022-05-27 10:16 | XMS_ITS | Encounter Summary ---
:1995 Author Organization [facility] Address [address] [place] [address] Care Team Providers Name Role Phone Rob Tillman MD Primary Care Provider Encounter Details Date Type Department Care Team Description 09/20/2019 Office Visit [facility] Humera Bush, Nonverbal learning disorder (Primary Dx); [address] JIMENEZ ADHD (attention deficit hyperactivity di sorder), inattentive type; [address]. 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 Current Outpatient Medications Medication Sig Note Dispense Refill ??? Acetylcysteine (W-ZQMMTL-Q-CYSTEINE OR) 1200mg daily ??? ARIPiprazole (ABILIFY) 2 MG tablet Take 5 mg by mouth daily. ??? Carnitine 250 MG 500 mg Codeine daily. ??? cetirizine (ZYRTEC) 10 MG tablet Take 1 Tablet by mouth. 06/30/2018: PRN ??? cholecalciferol (VITAMIN D3) 1000 units tablet Take 1,000 Units by mouth daily. ??? methylphenidate (CONCERTA) 54 MG controlled release tablet Take 54 mg by mouth daily. Hard script given, e script not working ??? methylphenidate (RITALIN) 10 MG tablet Take 15 mg by mouth daily. ??? Multiple Vitamins-Minerals (CENTRUM ADULTS OR) daily. ??? WELLBUTRIN XL 300 MG 24 hour release tablet No current facility-administered medications for this visit. Chief Complaint: Fly is seen via video with his mom, he is complaining of decreased motivation Current History: Fly is seen via tele video, he is accompanied by his mom who reports that he isstruggling with the structure. Fly is now home full- time due to changes in his school schedule related to the kaplan virus. Mom feels like this has been a very difficult change for him to navigate because he does not do well with structure. Fly shares that he is now ???completely unmotivated to do anything.?? He spending most of his time playing video games. He has been particularly preoccupied with 1 specific game. Mom says that he has a project that he knew working on for school online and has been avoiding it because he is playing games of time. They now have put plan place where she is completely eliminated his access to any online video games until he completes his project. Fly's able to acknowledge that he does not do well he with the lack of structure. He attributes it to lack of motivation although it has been a longstanding problem. Pharmacologically at his last visit we discontinued his Anafranil due to lack of efficacy. He did not call us back for follow-up to get his Zoloft prescription which was going to replace afternoon and therefore he has not started that medication. In addition he has been utilizing only 10 mg short-acting methylphenidate in the late afternoon when he had homework because he was having a hard time sleeping pills. He does feel that the 10 mg has been substantially helpful and mom concurs that there is anoticeable difference when he takes it. Medical Review of Systems: There were no vitals filed for this visit. no side effects and no issues with pain Labs:No indication for labs at this time. AIMS/DISCUS:N/A Chemical Use: none Social History Living Situation: bio parents Activities: no/limited extracurricular activities, excessive video game or electronics use Education: Currently in but is doing them enrolled in classes at [employer] but isdoing them online Therapy: None Other Services: [facility] social work case manager, KARYNA hernandez in place, [facility] worker Mental Status Exam: Fly is pleasant and talkative. Eye contact is appropriate. Speech is generally unremarkable except that he has a tendency to interject is somewhat intrusive manner. Motor exam is consistent with his spina bifida. He tells me his mood has been ???unmotivated,?? but his affect is inconsistent with that as he is smiling throughout the visit. Content to the interviews about his frustrations over his excessive video game playing. His thought process is a bit concrete but organized. If he is focused and attentive, fund of knowledge seems to be adequate although he tangential and overly detailed at times. He has a somewhat perseverative manner today. Insight and judgment are adequate. Assessment: Fly tolerated discontinuing the Anafranil with no difficulties. It is difficult to know whether or not it has played a role in what he perceives to be poor motivation given the completechange in his circumstances since I saw him last. Mom believes that the medication adjustment has nothing to do with his lack of motivation and related entirely to the fact that now has no structure to his day and 24 hour access to his video games. Mom is working with Fly to set up more specific schedule with from expectations and guidelines. We talked about starting the Zoloft for his underlying anxiety which has always been a problem for him. He comes perseverative and worried quite easily. He is ruminative and then gets preoccupied with his worries. Will start at 25 mg for week and then increase to 50 mg. I reminded Fly to give me acall in 2 weeks with an update and to schedule a video follow-up in 6 weeks. Risk Assessment: The patient is at low risk for aggression. Diagnosis: ADHD primarily inattentive type, anxiety disorder not otherwise specified Plan: Add/change medications as follows: Start Zoloft 25 mg for a week then increase to [address] Bush in 2 weeks with a phone update No Medications ordered this encounter Discussed side effects and efficacy of all medications Continue all current social and educational plans Discussed healthy eating and exercise Discussed the need for increased structure Appointment in: 6 weeks, or earlier if needed Visit Summary: complex evaluation and medication management. Humera Bush MD This note created using speech-recognition software and may contain unintended word substitutions. documented in this encounter Plan of Treatment Upcoming Encounters Date Type Specialty Care Team Description 06/12/2022 Appointment Urology Raj Castro MD [address] [place], [place] [address] (Wo rk) 09/28/2022 Telemedicine Psychiatry Humera Bush MD [address] [place], [place] [address] (Wo rk) documented as of this encounter Visit Diagnoses Diagnosis Nonverbal learning disorder - Primary ADHD (attention deficit hyperactivity di sorder), inattentive type (HRC) Attention deficit disorder with hyperact ivity Spina bifida, unspecified hydrocephalus presence, unspecified spinal region (HRC) Anxiety (HRC) Anxiety state, unspecified documented in this encounter Care Teams Head Insulation Board Saw Operator Relationship Specialty Start Date End Date Rob Tillman MD PCP - General Physical Medicine and 08/01/19 [address] [facility] [place] [place] [address] documented as of this encounter
--- OUTSIDE RECORDS SUMMARY | 2022-05-27 10:16 | XMS_ITS | Encounter Summary ---
:1995 Author Organization [facility] Address [address] [place] [address] Care Team Providers Name Role Phone Rob Tillman MD Primary Care Provider Reason for Visit Reason Comments Revisit Encounter Details Date Type Department Care Team Description 11/30/2019 Phone Visit [facility] Scoliosis of t horacic spine, unspecified scoliosis type (Primary Dx); [facility] Hydrocephalus, unspecified type ([facility]C) Neurosurgery[facility]tho [place] [address] 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 Consult for Neuromuscular scoliosis with Dr. Guilherme Wells ( [facility] [place]) 2. F/U in Jul 2021 with scoliosis x-rays and head CT Matthew Hansen MD 11/30/2019, 4:15 PM documented in this encounter Progress Notes Matthew Hansen MD - 11/30/2019 3:00 PM CDT NEUROSURGERY PHONE VISIT Had a long conversation with Fly and his Mom today. 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 With respect to the former, we got CTs of the lumbar and thoracic spine. The lumbar images show someDDD of the L4-5 disk and some expected facet arthropathy here and at the level below, but overall very minimal. The thoracic images show that the UIV, T8, is tilted 20 degrees to the left. On top of this T7-T8 adds 15 degrees more of tilt plus a mild left laterolisthesis. Above this he has a compensatory levoscoliosis with a neutral T1 but unfortunately it is here where he has the truncal shift. Slight shoulder asymmetry with the left shoulder 2 cms below the right one. There are no bony plastic changes at T7-8 that suggest instability. Considering the nature of his truncal shift, as well as his current level of pain, I'd suggest leaving it alone, insisting on PT and potentially sending him for injections in our pain clinic. Trying tocorrect his especific deformity entails quite a large surgery that may Be associated with worse interscapular pain. At least that has been my experience for this type of surgery on this location. I'd recommend f/u in 2 years with scloi xrays. At the same time I mentioned to them that y experience with this type of problem is limited and I have encouraged them to get a second opinion. Specifically with Dr. Sumi Wells from [facility] [place]. Dr. Wells is an expert in neuromuscular deformities and the best deformity surgeon in the [place] in my opinion. With respect to the HCP, I had a chance of discussing his case with Dr. Tessy Hernandez from [facility]. The issue here is wetehr a IIIrd ventriculostomy would help. The idea is that the currently asymptomatic ventriculomegaly could lead to early memory decline as he ages. Redoing his shunt has a huge risk of cerebral mantle collapse and SDH. The problem is that his HCP is probably also reated to decrease CSF absortion capacity, hence a IIIrd ventriculostomy would not achieve much. More over, these are often not followed by a decrease in ventricular size. So, although his ventriculomegaly may not be the best - theoretically - in the buttermaker, attempting to fix it is more dangerous than leaving it alone.Hence we would just recommend f/u imaging - next CT early 2021. Time:20 min Matthew Hansen MD 11/30/2019, 4:14 PM documented in this encounter Plan of Treatment Upcoming Encounters Date Type Specialty Care Team Description 06/12/2022 Appointment Urology Raj Castro MD [address] [place], [place] [address] (Wo rk) 09/28/2022 Telemedicine Psychiatry Humera Bush MD [address] [place], [place] [address] (Wo rk) documented as of this encounter Visit Diagnoses Diagnosis Scoliosis of thoracic spine, unspecified scoliosis type - Primary Hydrocephalus, unspecified type (HRC) documented in this encounter Care Teams Vision Teacher Relationship Specialty Start Date End Date Rob Tillman MD PCP - General Physical Medicine and 08/01/19 [address] [facility] [place] [address] documented as of this encounter
--- OUTSIDE RECORDS SUMMARY | 2022-05-27 10:16 | XMS_ITS | Encounter Summary ---
:1995 Author Organization [facility] Address [address] [place] [address] Care Team Providers Name Role Phone Rob Tillman MD Primary Care Provider Reason for Visit Reason Comments Rachelle Increased Depression Medication Request Encounter Details Date Type Department Care Team Description 11/15/2019 Telephone [facility] Humera Bush Reeve; Increased [address] 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 Routed to [place] to attempt to schedule appointment. Please route back to nursing for action once scheduled. Stacy Lubin RN Soraya Mcmullen - 11/15/2019 1:56 PM CDT Miscellaneous Questions & FYI's Is this a question/concern or an FYI? Question What is your question? Increased depression Pt also needs refill on Wellbutrin, Methylphenidate and Sertraline [Fork Lift Truck Operator: If the pt is calling after 3:30pm, was the caller reminded that their call may not be returned until the following day: Yes] Soraya Mcmullen documented in this encounter Plan of Treatment Upcoming Encounters Date Type Specialty Care Team Description 06/12/2022 Appointment Urology Raj Castro MD [address] [place], [place] [address] (Wo rk) 09/28/2022 Telemedicine Psychiatry Humera Bush MD [address] [place], [place] [address] (Wo rk) documented as of this encounter Visit Diagnoses Not on filedocumented in this encounter Care Teams Wireline Field Operator Relationship Specialty Start Date End Date Rob Tillman MD PCP - General Physical Medicine and 08/01/19 [address] [facility] [place] [address] documented as of this encounter
--- OUTSIDE RECORDS SUMMARY | 2022-05-27 10:16 | XMS_ITS | Encounter Summary ---
:1995 Author Organization [facility] Address [address] [place] [address] Care Team Providers Name Role Phone Rob Tillman MD Primary Care Provider Reason for Visit Procedure/Equipment (Routine) - Incomplete Specialty Diagnoses / Procedures Referred By Contact Refer red To Contact Diagnoses Scoliosis of thoracic spine, unspecified scoliosis type Nataliia Henry PA-C Procedures XR Scoliosis 2 Views [address] [place] [address] Referral ID Status Reason Start Date Expiration Date Visits V isits Requested Authorized [id number] Incomplete 08/22/2019 11/20/2020 1 1 Encounter Details Date Type Department Care Team Description 08/22/2019 [facility] thoracic spine, Radiology [address] [facility] unspecified [address] [facility] 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 documented in this encounter Results XR Scoliosis 2 Views (08/22/2019 4:27 PM IN TUBE CONVERSION TECHNICIAN) Anatomical Region Laterality Modality Spine, C-Spine, T-Spine, L-Spine Compute d Radiography Specimen (Source) Anatomical Collection Method Collection Time Re ceived Time Location / / Volume Laterality 08/22/2019 4:27 PM IN TUBE CONVERSION TECHNICIAN Narrative 08/23/2019 8:54 AM IN TUBE CONVERSION TECHNICIAN EXAM: XR SCOLIOSIS 2 VIEWS LOCATION: [facility] DATE/TIME: 08/22/2019 4:27 PM INDICATION: Redo scoliosis XR having him hold on to a bar (like 2019 xr) COMPARISON: Scoliosis x-ray 08/22/2019 an d 06/30/2018 IMPRESSION: 12 thoracic rib-bearing and 5 lumbar typ e vertebrae. ??Unchanged S-shaped thoracolumbar curvature and multilevel right lateral instrumented fusion from T8 through L4 as described previously. Multilevel spinal dysraphism from L3 through the sa daniel. Mild midthoracic spondylosis. Unchanged ancillary findings as described previously. Measurements: Major Curve: In the current position the dominant thoracic levocurvature from T2 through T7 measures 48 degrees. This is unchanged compared to the 2019 exam. Minor Curve(s): Thoracal lumbar dextrocu rvature from T8 through L4 measures 34 degrees, also unchanged accounting for slight differences in measurement technique. Sagittal Balance: Sagittal balance canno t be accurately measured in the current position which obscures the lower cervical vertebra on the lateral view. Procedure Note Fazal Stockton MD - 08/23/2019Formatt ing of this note might be different from the original. EXAM: XR SCOLIOSIS 2 VIEWS LOCATION: [facility] DATE/TIME: 08/22/2019 4:27 PM INDICATION: Redo scoliosis XR having him hold on to a bar (like 2019 xr) COMPARISON: Scoliosis x-ray 08/22/2019 an d 06/30/2018 IMPRESSION: 12 thoracic rib-bearing and 5 lumbar typ e vertebrae. Unchanged S-shaped thoracolumbar curvature and multilevel right lateral instrumented fusion from T8 through L4 as described previously. Multilevel spinal dysraphism from L3 through the sacrum. Mild midthor acic spondylosis. Unchanged ancillary findings as described previously. Measurements: Major Curve: In the current position the dominant thoracic levocurvature from T2 through T7 measures 48 degrees. This is unchanged compared to the 2019 exam. Minor Curve(s): Thoracal lumbar dextrocu rvature from T8 through L4 measures 34 degrees, also unchanged accounting for slight differences in measurement technique. Sagittal Balance: Sagittal balance canno t be accurately measured in the current position which obscures the lower cervical vertebra on the lateral view. Nataliia JEAN GD documented in this encounter Visit Diagnoses Diagnosis Scoliosis of thoracic spine, unspecified scoliosis type documented in this encounter Care Teams Snack Stewardess Relationship Specialty Start Date End Date Rob Tillman MD PCP - General Physical Medicine and 08/01/[address] [place] [address] [place] [address] documented as of this encounter
--- OUTSIDE RECORDS SUMMARY | 2022-05-27 10:16 | XMS_ITS | Encounter Summary ---
:1995 Author Organization [facility] Address [address], [place] [address] Care Team Providers Name Role Phone Rob Tillman MD Primary Care Provider Reason for Visit Reason Comments Revisit Spina bifida without hydroce phalus, unspecified spinal region (HRC) Encounter Details Date Type Department Care Team Description 10/09/2019 Telemedicine [facility] Rob Tillman Spina bifi da without hydrocephalus, unspecified spinal region (HRC) (Primary Dx); Neuro[facility] MD Sophie Gait abnormality Physical Medicine [address] 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 Revisit Spina bifida without hydrocephalus, unspecified spinal region [...] SCI clinic from [facility] at [facility] for general SCI care and management. [...] being seen, patient is been doing well. In the interim, patient has had a decline in his short-term memory status. He underwent a CT scan which revealed enlarged ventricle as well as the ventricle there was also small than expected. Patient has been in touch with Neurosurgery who will confer with their colleagues in hopes of coming up with a plan for possible intervention. Patient denies any headaches or vision changes. He also denies any new changes in his balance or gait. In addition, asleep referral was placed at patient's last visit in March and now patient is pending further investigation of what might be central sleep apnea. Other issues discussed were: Neurogenic Bowel: normal, full sensation, no accidents Neurogenic Bladder: voids with high PVR's, following with urology as needed Spasticity: none MSK Pain: patient has had right paraspinal pain above his incision which is around the midthoracic area. According to patient's mother that, this is worse with vertical loading. Neuropathic pain: none at this time Skin: had some skin breakdown between toes but this is improving. Mother keep close tabs on this andhelps with any wound care Sexuality: not discussed Mood: +depression/anxiety, sees MH in the community, benefitting ?? DME/Therapies/Function: Therapies: not in any formal therapies, working on [facility] Equipment: MWC, Madhavid crutches, awaiting formal wheelchair assessment which is scheduled for 10/13/19 ADL's: independent Past Medical History: Spina bifida astma Myelomeningocele Depression Anxiety ADHD Hodgkin's Disease ? Family History: Non-contributory ?? Social history: He is currently in college ([employer]?) studying IT. The patient lives with his parents. He reports thathe has never smoked. He has never used smokeless tobacco. Medications: Current Outpatient Medications Medication Sig Note Dispense Refill ??? Acetylcysteine (E-TVZDXB-E-CYSTEINE OR) 1200mg daily ??? ARIPiprazole (ABILIFY) 2 [...] ??? methylphenidate (RITALIN) 10 MG tablet Take 10 mg by mouth daily as needed. ??? Multiple Vitamins-Minerals (CENTRUM ADULTS OR) daily. ??? sertraline (ZOLOFT) 50 MG tablet Take 25 mg for one week then increase to 50 mg (Patient taking differently: Take 50 mg by mouth daily.) 30 Tablet 1 ??? WELLBUTRIN XL 300 MG 24 hour release tablet No current facility-administered medications for this visit. Allergies: Allergies Allergen Reactions ??? Latex Other, see comments Precaution ??? Pollen Extract Breathing Difficulty Nasal congestion ??? Adhesive Rash ? ? Molds & Smuts Other, see comments [place] mold- Respiratory Distress ??? Other Swelling Spider Venom: Severe local swelling Physical Exam: Not applicable, this was a phone visit Labs: Hemoglobin Date Value 04/20/2019 17.5 g/dL [...] [facility] Doing well. ?? Plan: 1. Patient [...] for hx of depression and anxiety 7. Pending Sleep Services plan for central sleep apnea 8. Follow as indicated: 1. NSGY 2. Oncology 3. Urology 4. Ophthalmology 9. Follow up: 4-6 months I spent a total of 25 minutes with the patient with > 50% of the time spent in education, counseling, and coordination of care. Rob Tillman MD 10/09/2019, 3:44 PM Physical Medicine and Rehabilitation documented in this encounter Plan of Treatment Upcoming Encounters Date Type Specialty Care Team Description 06/12/2022 Appointment Urology Raj Castro MD [address] [place], [place] [address] (Wo rk) 09/28/2022 Telemedicine Psychiatry Humera Bush MD [address] [place], [place] [address] (Wo rk) documented as of this encounter Visit Diagnoses Diagnosis Spina bifida without hydrocephalus, unsp ecified spinal region (HRC) - Primary Gait abnormality Abnormality of gait documented in this encounter Care Teams Metal Products Viewer Relationship Specialty Start Date End Date Rob Tillman MD PCP - General Physical Medicine and 08/01/19 [address] [facility] [place] [address] documented as of this encounter
--- OUTSIDE RECORDS SUMMARY | 2022-05-27 10:16 | XMS_ITS | Encounter Summary ---
:1995 Author Organization [facility] Address [address] [address] Care Team Providers Name Role Phone Rob Tillman MD Primary Care Provider Reason for Visit Reason Comments Forms Encounter Details Date Type Department Care Team Description 12/19/2019 Telephone [facility] Neuroscience Stalin son, Rob Barrios MD Forms Center Physical Medi cine [address] 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 Form sent to cathy. Billy Thomas 12/21/2019, 8:54 AM Karuna Woods RN - 12/20/2019 1:39 PM CDT CA: please send completed form to appropriate location. Karuna Woods RN Rob Tillman MD - 12/20/2019 1:36 PM CDT Form completed, given to clinical trial assistant for faxing. Rob Tillman MD 12/20/2019, 1:36 PM Beverley Oliver - 12/19/2019 2:19 PM CDT Printed and placed on providers desk Billy Thomas - 12/19/2019 9:36 AM CDT Images from the original note were not included. Received a prescription form & letter of medical necessity from [facility] [employer] and placed into provider rightfax folder. Please advise Billy Thomas 12/19/2019, 9:36 AM documented in this encounter Plan of Treatment Upcoming Encounters Date Type Specialty Care Team Description 06/12/2022 Appointment Urology Raj Castro MD [address] [place], [place] [address] (Wo rk) 09/28/2022 Telemedicine Psychiatry Humera Bush MD [address] [place], [place] [address] (Wo rk) documented as of this encounter Visit Diagnoses Not on filedocumented in this encounter Care Teams Hand Candle Dipper Relationship Specialty Start Date End Date Rob Tillman MD PCP - General Physical Medicine and 08/01/19 [address] [facility] Rehabilitation [place], [place] [id number] documented as of this encounter
--- OUTSIDE RECORDS SUMMARY | 2022-05-27 10:16 | XMS_ITS | Encounter Summary ---
:1995 Author Organization [facility] Address [address] [place] [address] Care Team Providers Name Role Phone Rob Tillman MD Primary Care Provider Reason for Referral Procedure/Equipment (Routine) - Incomplete Specialty Diagnoses / Procedures Referred By Contact Refer red To Contact Diagnoses 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 (HRC) Matthew Hansen MD Procedures CT Lumbar Spine WO IV Cont [address] [place] [address] Referral ID Status Reason Start Date Expiration Date Visits V isits Requested Authorized [id number] Incomplete 08/25/2019 11/23/2020 1 1 DRY ENGINEER Reason for Visit Reason Comments Orders Needed NEED ADDITIONAL LSPINE ORDER Encounter Details Date Type Department Care Team Description 08/25/2019 [facility]phone [facility] Specialty Judy Pizano Orders Needed (NEED Center CT L ADDITIONAL LSPINE 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 Billy Thomas 08/25/2019, 12:54 PM DRY ENGINEER Radha Cavanaugh, RN - 08/25/2019 12:[address] lumbar ordered. Radha Cavanaugh, MARC 08/25/2019, 12:40 PM DRY ENGINEER documented in this encounter Plan of Treatment Upcoming Encounters Date Type Specialty Care Team Description 06/12/2022 Appointment Urology Raj Castro MD [address] [place], [place] [address] (Wo rk) 09/28/2022 Telemedicine Psychiatry Humera Bush MD [address] [place], [place] [address] (Wo rk) documented as of this encounter Results CT Lumbar Spine WO IV Cont (08/28/2019 9:38 AM FOUNDRY ENGINEER) Anatomical Region Laterality Modality Spine, L-Spine Computed Tomography Specimen (Source) Anatomical Collection Method Collection Time Re ceived Time Location / / Volume Laterality 08/28/2019 9:38 AM FOUNDRY ENGINEER Narrative 08/28/2019 1:08 PM FOUNDRY ENGINEER EXAM: CT THORACIC SPINE WO IV CONT, [...] at L5-S1. Matthew Hansen MD RAD CT documented in this encounter Visit Diagnoses Diagnosis Spina bifida of lumbar region with hydro cephalus (HRC) - Primary Scoliosis of thoracic spine, unspecified scoliosis type Spina bifida of lumbar region with hydro cephalus (HRC) documented in this encounter Care Teams Second Time Worker Relationship Specialty Start Date End Date Rob Tillman MD PCP - General Physical Medicine and 08/01/[address] [place] [address] [place] [address] documented as of this encounter
--- OUTSIDE RECORDS SUMMARY | 2022-05-27 10:16 | XMS_ITS | Encounter Summary ---
:1995 Author Organization [facility] Address [address], [place] [address] Care Team Providers Name Role Phone Rob Tillman MD Primary Care Provider Reason for Visit Reason Comments Revisit Renal US Encounter Details Date Type Department Care Team Description 09/07/2019 Office Visit Specialty Center Raj Castro, Allyson rogenic bladder [address] [facility] (Primary Dx) 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 This may be one of our physician assistants or nurse practitioners. They are always in direct communication with your physician who remains responsible for your urologic care at [facility]. For Xray, CT test, and Ultrasound results, [...] you! Get Cost of Care Estimates - [phone] The health insurance marketplace has changed dramatically in the last few years. Our cost of care service will provide estimates over the phone for treatments or procedures billed through [facility]. To receive a cost estimate, simply call [phone] during regular business hours. If you have insurance coverage, you will need to verify your policy of coverage with your health planby calling the number located on the back of your insurance card and talking to member services. documented in this encounter Progress Notes Raj Castro MD - 09/07/2019 10:00 AM CDT Images from the original note were not included. Visit and Exam date: 09/07/2019 Assessment Encounter Diagnosis Name Primary? Neurogenic bladder Yes Plan In office renal ultrasound performed. Please see procedure note. Recommend urodynamic testing withinthe next year for surveillance of functional status of bladder and to assure appropriate bladder compliance in the setting of clean intermittent catheterization. Please see the After Visit Summary for counseling, advice, and precautions that I gave the patient during today's visit. The clinical visit today with the patient was documented using dictation software. Please excuse any typographical errors in ecommerce marketing manager Subjective Fly Moran is a 24 y.o. old male seen in clinic today Fly has a history of the following: Neurogenic bladder in the setting spina bifida managed with clean intermittent catheterization Please see prior urologic notes Workup/treatments/issues in the interim since last appointment: No acute urologic issues in the interim. Has no difficulty with catheterization. No hospitalizations for urinary tract infections in the interim Fly notes the following: Hematuria in the [...] ? Molds & Smuts Other, see comments [place] mold- Respiratory Distress ??? Other Swelling Spider Venom: Severe local swelling No past medical history on file. Objective BP (!) 140/93 (BP Location: Right Arm, BP Cuff Size: Regular) Pulse (!) 101 Ht 5' 1 (1.549 m) Wt 130 lb (59 kg) BMI 24.56 kg/m?? Pleasant and engaging. No apparent distress. Creatinine (mg/dl) Date Value 04/21/2018 0.93 Creatinine Whole Blood (mg/dL) Date Value 04/20/2019 0.9 Ultrasound procedure note Name: Fly Moran Date: 09/09/19 Exam: Limited renal ultrasound Technique: Continuous sonographic imaging of the left and right kidney was assessed for moore scale appearance with the use of 3.5 mHz transducer Findings: The Left kidney was normal in echogenicity. Size of the Left kidney was 10 cm. Hydronephrosis was not identified. Documentation images were obtained.The Right kidney was normal in echogenicity. Size ofthe Right kidney was 10.7 cm. Hydronephrosis was not identified. Documentation images were obtained Total visit time of 15 minutes (greater than 50% of this time spent in [id number] counseling and coordination of cares). The total time is exclusive of time spent in the performance of procedures or any other separately billable service. Raj Castro MD documented in this encounter Plan of Treatment Upcoming Encounters Date Type Specialty Care Team Description 06/12/2022 Appointment Urology Raj Castro MD [address] [place], [place] [address] (Wo rk) 09/28/2022 Telemedicine Psychiatry Humera Bush MD [address] [place], [place] [address] (Wo rk) documented as of this encounter Visit Diagnoses Diagnosis Neurogenic bladder - Primary Neurogenic bladder, NOS documented in this encounter Care Teams Lamp Shade Joiner Relationship Specialty Start Date End Date Rob Tillman MD PCP - General Physical Medicine and 08/01/19 [address] [facility] [place] [place] [address] documented as of this encounter
--- OUTSIDE RECORDS SUMMARY | 2022-05-27 10:16 | XMS_ITS | Encounter Summary ---
:1995 Author Organization [email or web address] Address [address] [address] Care Team Providers Name Role Phone oRb Tillman MD Primary Care Provider Reason for Visit Reason Comments Rachelle UPDATE Encounter Details Date Type Department Care Team Description 10/05/2019 Telephone [facility] Humera Bush MD [place]; UPDATE 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 Bush in 2 weeks with a phone update Placed call back to pt. He reports that Zoloft 50mg is going well, states he feels significantly better since starting the medication. Reports that he feels more optimistic and he doubts himself less, which in turn helps him to focus on his work. Has tolerated medication well, no side effects. Will continue on this dose till appt on 10/19- confirmed appt day/time with pt. Routed to Dr. Bush as FYI only Elsie Dyson, RN Barrett Larson - 10/05/2019 2:21 PM CDT Miscellaneous Questions & FYI's Is this a question/concern or an FYI? Question What is your question? Patient is calling stating he was told to call back and update Dr. Bush on how he is doing with themedication sertraline (ZOLOFT) 50 MG tablet. Is it okay to leave a detailed message on your voicemail? Yes [Nurse Extern: If the pt is calling after 3:30pm, was the caller reminded that their call may not be returned until the following day: No] Is there anything else I can help you with today? no Barrett Larson documented in this encounter Plan of Treatment Upcoming Encounters Date Type Specialty Care Team Description 06/12/2022 Appointment Urology Raj Castro MD [address] [place], [place] [address] (Wo rk) 09/28/2022 Telemedicine Psychiatry Humera Bush MD [address] [place], [place] [address] (Wo rk) documented as of this encounter Visit Diagnoses Not on filedocumented in this encounter Care Teams Multiskill Operator Relationship Specialty Start Date End Date Rob Tillman MD PCP - General Physical Medicine and 08/01/19 [address] [facility] [place] [address] documented as of this encounter
--- OUTSIDE RECORDS SUMMARY | 2022-05-27 10:16 | XMS_ITS | Encounter Summary ---
:1995 [facility] Address [address] [place] [address] Care Team Providers Name Role Phone Rob Tillman MD Primary Care Provider Reason for Visit Procedure/Equipment (Routine) - Incomplete Specialty Diagnoses / Procedures Referred By Contact Refer red To Contact Diagnoses Spina bifida, unspecified hydrocephalus presence, unspecified spinal region (HRC) Scoliosis of thoracic spine, unspecified scoliosis type Matthew Hansen MD Procedures XR Scoliosis [address] [place] [address] Referral ID Status Reason Start Date Expiration Date Visits V isits Requested Authorized [id number] Incomplete 08/22/2019 11/20/2020 1 1 Encounter Details Date Type Department Care Team Description 08/22/2019 [facility] Spina bifida, unspecified hydrocephalus presence, unspecified spinal region (HRC); Procedure [facility] Alen Castro Scoliosis of thoracic spine, unspecified scoliosis type Radiology [address] 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 spinal region (H RC) Scoliosis of thoracic spine, unspecified scoliosis type documented in this encounter Results XR Scoliosis 2 Views (08/22/2019 2:31 PM WELDER) Anatomical Region Laterality Modality Spine, C-Spine, T-Spine, L-Spine Compute d Radiography Specimen (Source) Anatomical Collection Method Collection Time Re ceived Time Location / / Volume Laterality 08/22/2019 2:31 PM WELDER Narrative 08/23/2019 8:49 AM WELDER EXAM: XR SCOLIOSIS 2 VIEWS LOCATION: [facility] DATE/TIME: 08/22/2019 2:31 PM INDICATION: Hx of spina bifida/scoliosis evaluate for change COMPARISON: X-ray 06/30/2018 IMPRESSION: 12 thoracic rib-bearing and 5 lumbar typ e vertebrae. ??S-shaped thoracolumbar curvature, with dominant upper thoracic levocurvature further detailed below. Overall unchanged spinal alignment and vertebr al body heights. Right lateral instrumen flex fusion extending from T8 through L4 without evidence for hardware failure or loosening as seen previously. Suspected multilevel spinal dysraphism from L3 thro ugh the upper sacrum. Dysplastic left hi p with suspected fusion of the left femoral head and ileum. Hardware instrumentation of the proximal femur as seen previously. Redemonstration of a catheter coile d within the pelvis, potentially part of a ventriculoperitoneal shunt which appears to be discontinuous in the lower neck. This is unchanged. Measurements: Major Curve: Dominant thoracic levocurva ture measuring 45 degrees from T2 through T7, apex at T4. Minor Curve(s): Thoracolumbar dextrocurv ature measuring 38 degrees from T8 through T4. Sagittal Balance: 2 cm positive. Procedure Note Fazal Stockton MD - 08/23/2019Formatt ing of this note might be different from the original. EXAM: XR SCOLIOSIS 2 VIEWS LOCATION: [facility] DATE/TIME: 08/22/2019 2:31 PM INDICATION: Hx of spina bifida/scoliosis evaluate for change COMPARISON: X-ray 06/30/2018 IMPRESSION: 12 thoracic rib-bearing and 5 lumbar typ e vertebrae. S-shaped thoracolumbar curvature, with dominant upper thoracic levocurvature further detailed below. Overall unchanged spinal alignment and vertebral body heights. Right lateral instrumented fusion extending from T8 through L4 without evidence for hardware failure or loosening as seen previously. Suspected multilevel spinal dysraphism from L3 through the upper sacrum. Dysplastic left hip with suspected fusio n of the left femoral head and ileum. Hardware instrumentation of the proximal femur as seen previously. Redemonstration of a catheter coiled within the pelvis, potentially part of a ventriculoperitoneal shunt which ap pears to be discontinuous in the lower neck. This is unchanged. Measurements: Major Curve: Dominant thoracic levocurva ture measuring 45 degrees from T2 through T7, apex at T4. Minor Curve(s): Thoracolumbar dextrocurv ature measuring 38 degrees from T8 through T4. Sagittal Balance: 2 cm positive. Matthew Hansen MD RAD GD documented in this encounter Visit Diagnoses Diagnosis Spina bifida, unspecified hydrocephalus presence, unspecified spinal region (HRC) Scoliosis of thoracic spine, unspecified scoliosis type documented in this encounter Care Teams Filling Room Operator Relationship Specialty Start Date End Date Rob Tillman MD PCP - General Physical Medicine and 08/01/[address] [place] [address] [place] [address] documented as of this encounter
--- OUTSIDE RECORDS SUMMARY | 2022-05-27 10:16 | XMS_ITS | Encounter Summary ---
:1995 Author Organization [employer] Address [address] [place] [address] Care Team Providers Name Role Phone Rob Tillman MD Primary Care Provider Encounter Details Date Type Department Care Team Description 08/24/2019 Telephone [facility] Nataliia Burrows, [facility] [address] [place] [address] [place] [address] [address] [facility] [address] 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 Hansen fax folder for review. Billy Thomas 08/29/2019, 8:41 AM LOADER Billy Thomas - 08/29/2019 8:18 AM CST Lab results have not been received. Blueprint Machine Operator reached Beverley with [facility] JOHANNA and requested for results to be faxed to [phone]. Per Beverley she will be sending this today. Will watch to make sure results are received. Billy Thomas 08/29/2019, 8:19 AM LOADER Karuna Woods RN - 08/25/2019 2:25 PM CST CA: please follow up on lab results from [facility]. Karuna Woods RN LOADER Karuna Woods RN - 08/25/2019 1:59 PM CST Patient and mother advised of provider recommendations from below message and states understanding. Mother also states that patient had blood work completed today at [facility] and JOHANNA was signed to send results to clinic. Karuna Woods RN LOADER Sadie Londono PA-C - 08/24/2019 4:[address] Hansen spoke with Dr. Hernnadez and they did not think a 3rd ventriculostomy would be appropriate, rather a programmable SPINNING FRAME CLEANER shunt. Please have pt f/u with Dr. Hansen within the next month to discuss options, as Dr. Hernandez may do the shunt but will discuss with family first. Sadie Londono PA-C 08/24/2019, 4:43 PM LOADER Nataliia Henry PA-C - 08/24/2019 8:[address] Hansen to discuss patient's case with Dr. Hernandez as to whether or not he would be a good candidate for 3rd ventriculostomy, or if he should be referred to see Dr. Hernandez. Patient will need to be called with plan once obtained. LOADER documented in this encounter Plan of Treatment Upcoming Encounters Date Type Specialty Care Team Description 06/12/2022 Appointment Urology Raj Castro MD [address] [place], [place] [address] (Wo rk) 09/28/2022 Telemedicine Psychiatry Humera Bush MD [address] [place], [place] [address] (Wo rk) documented as of this encounter Visit Diagnoses Not on filedocumented in this encounter Care Teams Landscape Architect Relationship Specialty Start Date End Date Rob Tillman MD PCP - General Physical Medicine and 08/01/19 [address] [facility] Rehabilitation [place], [place] [phone] documented as of this encounter
--- OUTSIDE RECORDS SUMMARY | 2022-05-27 10:16 | XMS_ITS | Encounter Summary ---
:1995 Author Organization [facility] Address [address] [place] [address] Care Team Providers Name Role Phone Rob Tillman MD Primary Care Provider Encounter Details Date Type Department Care Team Description 12/18/2019 Office Visit [facility] Sánchez Aceves, Obstructive sleep [address] 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 ROS: Dental: no changes to dentition since last visit. We still need xrays to be sent to our clinic from dental office. PFSH: no changes to health reported. O: Extraoral exam: no swelling, mass, or lymphadenopathy. Jaw range of motion: unrestricted, no TMJ noise, no pain. Points tender to palpation: none Intercuspal dental contacts: holds shimstock on bilateral posterior pairs Jaw Protrusion: 12 mm, straight. A: Diagnosis: obstructive sleep apnea- mild HST 06/12/19 - RDI 5 Referring provider: Ruth Ann Still: We took impressions of the teeth and bite registration today for fabrication of a somnomed flex appliance. Yvon gauge set at +6 mm out of a total of 12 mm of jaw protrusive range. Patient will return to clinic in 4 weeks to be fitted with the appliance. Jose G Aceves DDS, [place] documented in this encounter Plan of Treatment Upcoming Encounters Date Type Specialty Care Team Description 06/12/2022 Appointment Urology Raj Castro MD [address] [place], [place] [address] (Wo rk) 09/28/2022 Telemedicine Psychiatry Humera Bush MD [address] [place], [place] [address] (Wo rk) documented as of this encounter Visit Diagnoses Diagnosis Obstructive sleep apnea - Primary Obstructive sleep apnea (adult) (pediatr ic) documented in this encounter Care Teams Community Health Education Coordinator Relationship Specialty Start Date End Date Rob Tillman MD PCP - General Physical Medicine and 08/01/19 [address] [facility] [place] [address] documented as of this encounter
--- OUTSIDE RECORDS SUMMARY | 2022-05-27 10:16 | XMS_ITS | Encounter Summary ---
:1995 Author Organization [employer] Address [address] [place] [address] Care Team Providers Name Role Phone Rob Tillman MD Primary Care Provider Encounter Details Date Type Department Care Team Description 08/30/2019 Office Visit [facility] Humera Bush, ADHD (attention deficit hype ractivity disorder), inattentive type (Primary Dx); [address] [place] Nonverbal learning disorder; [address]. 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 Acetylcysteine (Q-TEHOZT-V-CYSTEINE OR) 1200mg daily ??? ARIPiprazole (ABILIFY) 2 [...] medications for this visit. 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 At his last visit we changed him from short acting 40 mg methylphenidate in the morning to 54 mg extended release methylphenidate. Fly feels like he now is able to focus and concentrate throughout the school day and that is much improved but he acknowledges that by about 3:00 a.m. the medication wears off and he cannot focus on his homework. He also continues carlos very ruminative and anxious about a wide range of things particularly performance and school. Hismood overall has been quite good. Since his last visit by neuro surgery and has had some increase in his ventricle size, his scoliosisis generally stable. Neuro surgery is doing some consulting about what might be the next step from aneuro surgery standpoint. He was referred for neuropsych testing because of ongoing concerns about cognitive decline over the past couple of years. Medical Review of Systems: There were no vitals filed for this visit. no issues with pain and no acute medical issues. Increase in ventricular size being followed by Neurosurgery Labs:No indication for labs at this time. AIMS/DISCUS:N/A Chemical Use: Occasional social alcohol use Social History Living Situation: bio parents Activities: no/limited extracurricular activities, excessive video game or electronics use Education: Currently in college Therapy: Currently looking for a new therapist Other Services: [facility] older adult social work specialist, [facility] worker, [facility] worker in place Mental Status Exam: Fyl is a very pleasant talkative young man who does a good job advocating for himself. Eye contact is appropriate. Speech is unremarkable, he tends to be distracted in his conversation interject Ting comments that are directly related to the current topic but is very redirectabl e. Motor exam is consistent with his spina bifida. He tells me his mood has been ???pretty good,?? and he smiling throughout his visit. Content of the interview is about the benefit from changes in his medications, ongoing worries. His thought process is generally organized, he is a bit more concretethan expected for his age but not excessively so. He is not particularly perseverative repetitive. Fund of knowledge is good. Insight judgment are adequate. Assessment: Fly has had a positive benefit from changing to a high dose short-acting methylphenidate in the morning to 54 mg extended release which now lasts from the morning time until about 3:00 p.m.. He does say that he has trouble focusing for homework after that point and I suggested that it would be very reasonable to use short-acting methylphenidate 15 mg at about 3:00 p.m. before he needsto start his homework. We will continue to simplify his other medications. The Anafranil that he is on was started for his intrusive repetitive thinking and he thinks it may have been somewhat helpful for that when it was started but it was quite sometime ago. He continues to have a lot of ruminative negative thinking abouthimself and has a lot of generalized worries. One option would be to increase the Anafranil dose butI have concerns about side effects particularly urinary retention constipation, dry mouth and excessive sedation. I think it would be easier in the long run it to try an SSRI to see if he would get benefit with his anxiety from that class of medication. I suggested that he go ahead and taper off of the Anafranil by going down to 25 mg for 1 week and then discontinue it. I will have mom give me a callnext week once he is off that medication and we will initiate a trial of Zoloft for his anxiety. Our long-term goal continues to be the simplification of his medications. Once he is on the Zoloft Isuggest that we stop the Wellbutrin as this is again a medication that I am not clear on why it was started. Wellbutrin is a good antidepressant but not particularly good at treating anxiety for many people and I am hopeful that the Zoloft will be able to treat the anxiety and we will then discontinuethe Wellbutrin completely. Once the Wellbutrin is gone we would discontinue his Abilify, again medication being prescribed for unclear reasons. I anticipate seen Fly every few weeks until things are stable with his medications. Risk Assessment: The patient is at low risk for aggression. 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 before doing homework. Continue with Concerta 54 mg. Given instructions to taper off of the Anafranil mom togive me a call next week in anticipation of starting Zoloft for anxiety Discussed side effects and efficacy of all medications Discussed healthy eating and exercise Discussed transition to adulthood issues Appointment in: 3 weeks, or earlier if needed Visit Summary: 40 minutes with >50% of the time spent on educational counseling regarding treatment options. Humera Bush MD This note created using speech-recognition software and may contain unintended word substitutions. N RESOURCES COMPLIANCE MANAGER documented in this encounter Plan of Treatment Upcoming Encounters Date Type Specialty Care Team Description 06/12/2022 Appointment Urology Raj Castro MD [address] [place], [place] [address] (Wo rk) 09/28/2022 Telemedicine Psychiatry Humera Bush MD [address] [place], [place] [address] (Wo rk) documented as of this encounter Visit Diagnoses Diagnosis ADHD (attention deficit hyperactivity di sorder), inattentive type (HRC) - Primary Attention deficit disorder with hyperact ivity Nonverbal learning disorder Spina bifida, unspecified hydrocephalus presence, unspecified spinal region (HRC) Anxiety (HRC) Anxiety state, unspecified documented in this encounter Care Teams Potato Chip Sorter Relationship Specialty Start Date End Date Rob Tillman MD PCP - General Physical Medicine and 08/01/19 [address] [place] [address] documented as of this encounter
--- OUTSIDE RECORDS SUMMARY | 2022-05-27 10:16 | XMS_ITS | Encounter Summary ---
:1995 Author Organization [employer] Address [address] [address] Care Team Providers Name Role Phone Rob Tillman MD Primary Care Provider Reason for Visit Reason Comments ERRONEOUS ENTRY Encounter Details Date Type Department Care Team Description 08/30/2019 Telephone [facility] Germania Bush MD ERRONEOUS ENTRY Psychiatry [address] [place] [address], [place] [address] [facility] [place], [place] [id number] [phone] Social History Tobacco Use Types Packs/Day Years Used Date Smoking Tobacco: Never Smokeless Tobacco: Never Alcohol Use Standard Drinks/Week Comments Yes 0 (1 standard drink = 0.6 oz pure alcoho l) occasional Sex Assigned at Date Recorded 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 documented as of this encounter Nursing Notes Elsie Dyson RN - 08/30/2019 9:22 AM CST AN BLANKET WEAVER documented in this encounter Plan of Treatment Upcoming Encounters Date Type Specialty Care Team Description 06/12/2022 Appointment Urology Raj Castro MD [address] [place] [address] (Wo rk) 09/28/2022 Telemedicine Psychiatry Humera Bush MD [address] [place] [address] (Wo rk) documented as of this encounter Visit Diagnoses Not on filedocumented in this encounter Care Teams Propagation Worker Relationship Specialty Start Date End Date Rob Tillman MD PCP - General Physical Medicine and 08/01/19 [address] [place] [place] [address] documented as of this encounter
--- OUTSIDE RECORDS SUMMARY | 2022-05-27 10:16 | XMS_ITS | Encounter Summary ---
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 documented in this encounter Results SCANNED LAB (08/25/2019 12:00 AM SAFETY TEACHER) Specimen (Source) Anatomical Location Collection Method / Collectio n Time Received Time / Laterality Volume 08/25/2019 Narrative This result has an attachment that is no t available. Rob Tillman MD LAB_1 documented in this encounter Visit Diagnoses Not on filedocumented in this encounter Care Teams Motor Analyst Relationship Specialty Start Date End Date Rob Tillman MD PCP - General Physical Medicine and 08/01/[address] [place] [address] [place] [address] documented as of this encounter
--- OUTSIDE RECORDS SUMMARY | 2022-05-27 10:16 | XMS_ITS | Encounter Summary ---
:1995 Author Organization [facility] Address [address] [place] [address] Care Team Providers Name Role Phone Rob Tillman MD Primary Care Provider Reason for Visit Reason Comments RELEASE OF RECORDS [facility] Office visit notes. Encounter Details Date Type Department Care Team Description 08/31/2019 [facility] MD Sophie ([place] [facility] [address] [facility] and [address] [facility]. 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 Rob Tillman MD 09/01/2019, 4:48 PM DEVELOPER Keke Larson RMA - 08/31/2019 3:31 PM CST Printed and placed on 's desk. BERTO Henning 08/31/2019, 3:31 PM DEVELOPER Josias Gee - 08/31/2019 2:38 PM CST Rec'd fax [facility] visit notes. Placed fax in providers right fax folder for review. Josias Gee 08/31/2019, 2:38 PM DEVELOPER documented in this encounter Plan of Treatment Upcoming Encounters Date Type Specialty Care Team Description 06/12/2022 Appointment Urology Raj Castro MD [address] [place], [place] [address] (Wo rk) 09/28/2022 Telemedicine Psychiatry Humera Bush MD [address] [place], [place] [address] (Wo rk) documented as of this encounter Visit Diagnoses Not on filedocumented in this encounter Care Teams Restaurant Worker Relationship Specialty Start Date End Date Rob Tillman MD PCP - General Physical Medicine and 08/01/19 [address] [facility] [place] [address] documented as of this encounter
--- OUTSIDE RECORDS SUMMARY | 2022-05-27 10:16 | XMS_ITS | Encounter Summary ---
:1995 Author Organization [employer] Address [address], [place] [address] Care Team Providers Name Role Phone Rob Tillman MD Primary Care Provider Reason for Visit Reason Comments [facility] Encounter Details Date Type Department Care Team Description 11/01/2019 Telephone [facility] Humera Bush MD [facility] [address] 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 Just had a follow-up visit on 10/20/19. Elsie Dyson RN BERTOT Karuna Church - 11/01/2019 8:26 AM CDT Miscellaneous Questions & FYI's Is this a question/concern or an FYI? FYI What is your comment or FYI? [facility] manages the prescription benefits for the health plan for your patient. Areview of your patientsretail and mail service prescription histor indicates that they may have stopped using their medication Sertraline 50 mg. Consider discussing your patients therapy with them as soon as possible. If you recently changed or plan to change the patients medication, please sidregard. Is it okay to leave a detailed message on your voicemail? No return call is being requested. [Trend Investigator: If the pt is calling after 3:30pm, was the caller reminded that their call may not be returned until the following day: No not after 330] Karuna Church documented in this encounter Plan of Treatment Upcoming Encounters Date Type Specialty Care Team Description 06/12/2022 Appointment Urology Raj Castro MD [address] [place], [place] [phone] (Wo rk) 09/28/2022 Telemedicine Psychiatry Humera Bush MD [address] [place], [place] [address] (Wo rk) documented as of this encounter Visit Diagnoses Not on filedocumented in this encounter Care Teams Middle School Coach Relationship Specialty Start Date End Date Rob Tillman MD PCP - General Physical Medicine and 08/01/19 [address] [facility] [place] [address] documented as of this encounter
--- OUTSIDE RECORDS SUMMARY | 2022-05-27 10:16 | XMS_ITS | Encounter Summary ---
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 AVA Meng documented in this encounter Plan of Treatment Upcoming Encounters Date Type Specialty Care Team Description 06/12/2022 Appointment Urology Raj Castro MD [address] [place] [phone] (Wo rk) 09/28/2022 Telemedicine Psychiatry Humera Bush MD [address] [place], [place] [address] (Wo rk) documented as of this encounter Visit Diagnoses Not on filedocumented in this encounter Care Teams Lobster Fisherman Relationship Specialty Start Date End Date Rob Tillman MD PCP - General Physical Medicine and 08/01/[address] [place] [address] [place] [address] documented as of this encounter
--- OUTSIDE RECORDS SUMMARY | 2022-05-27 10:16 | XMS_ITS | Encounter Summary ---
:1995 Author Organization [employer] Address [address] [place] [address] Care Team Providers Name Role Phone Rob Tillman MD Primary Care Provider Encounter Details Date Type Department Care Team Description 10/20/2019 Telemedicine [facility] Humera Bush, ADHD (attention deficit hype ractivity disorder), inattentive type (Primary Dx); [address] [place] Nonverbal learning disorder; 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 Acetylcysteine (G-KTTOFS-I-CYSTEINE OR) 1200mg daily ??? ARIPiprazole (ABILIFY) 5 MG tablet Take 1 Tablet by mouth daily. 30 Tablet 1 ??? Carnitine 250 MG 500 mg Codeine daily. ??? cetirizine (ZYRTEC) 10 MG tablet Take 1 Tablet by mouth. 06/30/2018: PRN ??? cholecalciferol (VITAMIN D3) 1000 units tablet Take 1,000 Units by mouth daily. ??? methylphenidate (CONCERTA) 54 MG controlled release tablet Take 54 mg by mouth daily. Hard script given, e script not working ??? Multiple Vitamins-Minerals (CENTRUM ADULTS OR) daily. ??? sertraline (ZOLOFT) 50 MG tablet Take 25 mg for one week then increase to 50 mg (Patient taking differently: Take 50 mg by mouth daily.) 30 Tablet 1 ??? WELLBUTRIN XL 300 MG 24 hour release tablet No current facility-administered medications for this visit. Chief Complaint: Fly feels like the addition of Zoloft has been very helpful Current History: Fly is a 24-year-old young man with nonverbal learning disorder and spina bifida who is seen for follow-up after starting Zoloft. Started on 25 mg with the dose increased to 50 mg.He feels like his anxiety has improved significantly with the addition of the Zoloft. He is not taking the methylphenidate at this point. He is doing all online classes because COVID-19. In general both mom and Fly feel like things are stable. They do not believe that increasing themedication further is indicated Medical Review of Systems: There were no vitals filed for this visit. no side effects and no issues with pain Labs:No indication for labs at this time. AIMS/DISCUS:The patient is observed in the office and no movements of concern noted Chemical Use: denies Social History Living Situation: bio parents Activities: has few friends, no/limited extracurricular activities, excessive video game or electronics use Education: Currently in college Therapy: Supportive Other Services: [facility] healthcare social workerdavid in place, [facility] worker Mental Status Exam: Fly is pleasant and talkative. Eye contact is adequate. Speech is generally unremarkable, perhaps mildly decreased in prosody. He at times gets a bit tangential with his topics.Motor exam is consistent with his spina bifida. His affect is bright, he smiling and he tells me hismood is ???better.?? Content of the interview is about COVID-19, school, upcoming events. His thought process is organized, more concrete than typical for his age but otherwise unremarkable. Insight and judgment are adequate. Assessment: Fly feels like he is doing well with his current dose of Zoloft at 50 mg. I suggested that we could move forward with decreasing his Abilify which has been a long-term goal. I think there is some hesitancy to make changes today because things are so stable and there is a lot of stress due to COVID-19. We decided to wait a bit to try decreasing the Anafranil only suggested to him that they could go down to half a pill, 2.5 mg a time he felt comfortable that was fine waiting a few weeks to do that until perhaps schedules are more back to normal. He is no longer taking the short-actingmethylphenidate and that will be discontinued from his medication list. Risk Assessment: The patient is at low risk for aggression. Diagnosis: Nonverbal learning disorder, ADHD primarily inattentive type, anxiety disorder Plan: Add/change medications as follows: Consider decreasing to Abilify 2.5 mg when comfortable over the next few weeks once things are more stable due to COVID-19. Discontinue short-acting late afternoon methylphenidate as he is not taking does Outpatient ordered medications Medication Sig ARIPiprazole (ABILIFY) 5 MG tablet Take 1 Tablet by mouth daily. Discussed side effects and efficacy of all medications Continue all current social and educational plans Discussed healthy eating and exercise Appointment in: 4-6 weeks, or earlier if needed Visit Summary: complex evaluation and medication management. Humera Bush MD This note created using speech-recognition software and may contain unintended word substitutions. documented in this encounter Plan of Treatment Upcoming Encounters Date Type Specialty Care Team Description 06/12/2022 Appointment Urology Raj Castro MD [address] [place], [place] [address] (Wo rk) 09/28/2022 Telemedicine Psychiatry Humera Bush MD [address] [place], [place] [address] (Wo rk) documented as of this encounter Visit Diagnoses Diagnosis ADHD (attention deficit hyperactivity di sorder), inattentive type ([facility]) - Primary Attention deficit disorder with hyperact ivity Nonverbal learning disorder Spina bifida, unspecified hydrocephalus presence, unspecified spinal region ([facility]) Anxiety ([facility]) Anxiety state, unspecified documented in this encounter Care Teams Manager Developmental Relationship Specialty Start Date End Date Rob Tillman MD PCP - General Physical Medicine and 08/01/19 [address] [facility] [place] [address] documented as of this encounter
--- OUTSIDE RECORDS SUMMARY | 2022-05-27 10:16 | XMS_ITS | Encounter Summary ---
:1995 Author Organization [facility] Address [address] [place] [address] Care Team Providers Name Role Phone Rob Tillman MD Primary Care Provider Encounter Details Date Type Department Care Team Description 11/30/2019 Telemedicine [facility] Humera Bush, Nonverbal learning disorder (Primary Dx); [address] ADHD (attention deficit hyperactivity di sorder), inattentive type; 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 Acetylcysteine (E-BUBGAU-J-CYSTEINE OR) 1200mg daily ??? ARIPiprazole (ABILIFY) 5 [...] ??? sertraline (ZOLOFT) 50 MG tablet Take 1 Tablet by mouth daily. 90 Tablet 1 ??? WELLBUTRIN XL 300 MG 24 hour release tablet Take 1 Tablet by mouth daily. 90 Tablet 1 No current facility-administered medications for this visit. Chief Complaint: Fly is a 24-year-old with spina bifida and significant mood and motivation issues, he feels things are going well with his mood and anxiety Current History: Fly was seen today for video visit with his mom present. He shares that he passed his classes with grades of C this spring semester. Unfortunately, he needed to get B's in order toincrease his GPA high enough to meet his probationary status requirements. He is now suspended from [facility]. He needs to write a letter of appeal in order to register for classes in the fall with anexplanation as to how he is going to do things differently and why he is struggling. He seems to have little regard for this in our interview but that is typical for him, he does not show a lot of concern about his situation. He is also working with his marketing community liaison for housing options. He found an apartment that would be suitable for him but it is not clear what he needs todo for next steps in order to move out. He shares that his mood is actually ???quite good, and his anxiety has improved. The Concerta has helped with focus and attention. Mom agrees that mood and irritability overall has substantially improved in this medication combination seems to be working well. About 30-45 minutes after he takes his Co ncerta in the morning he is much more motivated and productive. Unfortunately he continues to spend most of his time playing video games. Mom says they have ???given up,?? trying to motivate him to do more age-appropriate activities. The big plan at this point is for mom and dad to work with the briefcase sewer and soham soriano to assist him in the steps to move out. They will then put in briefcase sewer, ILS worker,[facility] worker in place in the new apartment along with a home health care nurse. With those supports in place they are hoping that he will be able to take some next steps towards independence. Medical Review of Systems: There were no vitals filed for this visit. no side effects and no issues with pain Labs:No indication for labs at this time. AIMS/DISCUS:The patient is observed in the office and no movements of concern noted Chemical Use: none Social History Living Situation: bio parents Activities: has few friends, no/limited extracurricular activities Education: Now suspended from [employer] Therapy: None Other Services: [employer] worker, on hold due to COVID-19, [facility] briefcase sewer, waiver in place Mental Status Exam: Fly is a very superficially bright 24-year-old. Eye contact is appropriate. Speech is adequate. He has a superficial smile that does not change and his affect is inconsistent with what we are talking about. He continues to smile regardless of the content of our conversation or the seriousness of what we are discussing. He says his mood is ???that is really good.?? Motor exam is consistent with his spina bifida. Content to the interviews about his current circumstances and upcoming goals. Thought process is very concrete. He has a very difficult time articulating long-term goals in a realistic way, executive functioning seems to be significantly impaired. His thought process is organized otherwise, no suicidality. Cognitively he is alert and focused. Very poor abstract reasoning. General fund of knowledge is less than expected for his age. Insight judgment are limited. Assessment: Fly is a very pleasant young man with a superficial attitude and poor executive functioning likely related to his spina bifida. Mom shares that he is meeting with the neuro surgeon later today because of ongoing concerns about his Chiari malformation and 4th ventricle enlargement as well as concerns about evolving spina bifida. Surgery may be in his future which would change plans potentially regarding independent living. If surgery is not going to be considered they are going to move forward with independent living. Pharmacologically things are stable in both Fly and his mom agree that things are going well with his mood and anxiety overall. Mom is very realistic and aware that his lack of motivation for change is not a symptom of his mental health issues but more likely due to his cognitive differences related to his spina bifida. No pharmacologic interventions are suggested today. I did ask that they keep me up today regarding both his move out of the house as well as any possible surgery. He can check back with me in 3 months time if things remain generally stable. Risk Assessment: The patient is at low risk for aggression. Diagnosis: Nonverbal learning disorder, ADHD, anxiety disorder not otherwise specified, spina bifida Plan: Continue current meds with no changes Outpatient ordered medications Medication Sig ARIPiprazole (ABILIFY) 5 MG tablet Take 1 Tablet by mouth daily. Discussed side effects and efficacy of all medications Continue with current psychotherapy Continue all current social and educational plans Discussed healthy eating and exercise Discussed issues related to excessive electronics use Discussed transition to adulthood issues Appointment in: 3-4 months, or earlier if needed Visit Summary: 25 minutes with >50% of the time spent on educational counseling regarding diagnosis and prognosis and treatment options as well as Community Services as he transitions to [place] Humera Bush MD This note created using speech-recognition software and may contain unintended word substitutions. documented in this encounter Plan of Treatment Upcoming Encounters Date Type Specialty Care Team Description 06/12/2022 Appointment Urology Raj Castro MD [address] [place] [phone] (Wo rk) 09/28/2022 Telemedicine Psychiatry Humera Bush MD [address] [place], [place] [address] (Wo rk) documented as of this encounter Visit Diagnoses Diagnosis Nonverbal learning disorder - Primary ADHD (attention deficit hyperactivity di sorder), inattentive type ([facility]) Attention deficit disorder with hyperact ivity Spina bifida, unspecified hydrocephalus presence, unspecified spinal region ([facility]) Anxiety ([facility]) Anxiety state, unspecified documented in this encounter Care Teams Powder Room Attendant Relationship Specialty Start Date End Date Rob Tillman MD PCP - General Physical Medicine and 08/01/[address] [place] [address] [place] [address] documented as of this encounter
--- OUTSIDE RECORDS SUMMARY | 2022-05-27 10:16 | XMS_ITS | Encounter Summary ---
:1995 Author Organization [email or web address] Address [address] [place] [address] Care Team Providers Name Role Phone Rob Tillman MD Primary Care Provider Reason for Visit Reason Onset Date Comments Video Visit 12/13/2019 Consult/Transfer Care (Routine) - Closed Specialty Diagnoses / Procedures Referred By Contact Refer red To Contact Diagnoses LAUREL (obstructive sleep apnea) Ruth Ann Khan PA-C [address] [place] [address] Referral ID Status Reason Start Date Expiration Date Visits Requ ested Visits Authorized [id number] Closed 07/05/2019 10/03/2020 1 1 Encounter Details Date Type Department Care Team Description 12/13/2019 Telemedicine [place] TMD Sánchez Aceves, Obstructive sleep [address] 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 HPI: Fly has sleep apnea. He had sleep study completed because of feeling unrefreshed. He doesn't know if he snores. Mother says he snores once in a while, only if over tired or allergy season. Sleeps from 9 pm to 7 am. He feels like he sleeps well but wakes up not being rested. This has been going on since he finished his chemotherapy, which was 6 years ago. Home Sleep Test on 06/12/[address] Vegas are as follows: Home Sleep Test (HST) Interpretation ?? Date of Interpretation: 06/15/2019 BMI: Estimated body mass index is 26.26 kg/m?? as calculated from the following: Height as of this encounter: 5' 1 (1.549 m). Weight as of this encounter: 139 lb (63 kg). Manhattan Score: Manhattan Score: 14 Neck Circumference: 14.5 ? Device Name/Type: Carefusion NOX-T3 (Type III) Hypopnea Definition: AASM Rule: Technical Quality: 99 % ?? This home sleep test was performed as a/an Diagnostic study without a sleep partner in bed. ?? 1. The total recording time was 482.2 minutes. 2. Snoring was reported as none 3. Respiratory Events: a. Obstructive Apneas: 3 b. Central Apneas: 3 c. Mixed Apneas: 1 d. Hypopneas: 34 e. Overall RDI: 5.1 f. Non-Supine RDI: g. Supine RDI: 0 4. Oxygen Desaturations: a. Lowest O2 saturation was 81 % b. Total Sleep Time SpO2 was </= 88% was 0 minutes. 5. Positional Data: a. % Time Supine: 16.1 % b. % Time Non-Supine: 82.4 % 6. EKG: No significant cardiac arrhythmias were noted ?? Impression: ?? 1. This study indicates at least mild obstructive sleep apnea. ?? Recommendations: 1. Consider trial of auto-titrating CPAP with close clinical follow-up given degree of hypersomnia. If not tolerated, patient may be candidate for an oral appliance. 2. Would suggest optimizing sleep hygiene measures, especially avoiding alcohol and sedatives. Avoiding sleep deprivation would also be beneficial. 3. The patient should avoid dangers of driving while excessively drowsy. 4. Weight management if indicated. ?? I attest that I have conducted an epoch by epoch review of??all of the raw data for this sleep study. ? Ruth Ann Vegas MD ROS: Dental status: sees dentist every 6 months. Healthy teeth. Had orthodontia several years ago, to correct over bite. Upper retainer at night only. DDS outside of . Bite discomfort or instability: neg Dental pain: neg Dental mobility: neg Periodontal disease: neg Sleep bruxism: yes; used to break retainers from grinding. Parafunctional jaw habits: neg Jaw pain: neg Jaw joint noise or locking: neg Headaches: neg Ear pain: neg Constitutional: weight changes: neg Nasal congestion, nasal breathing difficulties: neg MEDICAL HX: hodgkin lymphoma; spina bifida. Family Hx of Apnea: father has LAUREL and uses oral appliance - somnomed. O: O CONSTITUTIONAL: General Appearance/Communication: vitals were not taken today. Patient is alert, oriented in space and time, no acute distress. Mother present during appointment also HEENT: no swelling or asymmetry on face, head or neck. MANDIBULAR MOVEMENT: self measured Opening: unrestricted ; opening pattern: straight Lateral jaw movements: symmetric, unrestricted, pain-free Protrusive: unrestricted, straight, pain-free TMJ SOUNDS/MECHANICAL SIGNS: none PALPATION: self palpation of masticatory structures with my guidance: Temporalis: Left 0; Right 0 Masseter: Left 0; Right 0 TMJs: Left 0; Right 0 OCCLUSION: Anterior Guidance: positive anterior relationship of OJ and OB, with what appears to be a class I occlusion. Dental - appears to have complete dental arches, no third molars CO Stability ([place]): Reports bilateral posterior occlusal contacts upon tooth tapping. Solid on bilateral posterior teeth DENTAL INSPECTION: limited dental inspection. INTRAORAL SOFT TISSUE: limited soft tissue examination. A: Obstructive sleep apnea - mild HST 06/12/19 - RDI 5 Referring provider: Ruth Ann Khan Impression: good candidate for OAT P: I explained the management of obstructive sleep apnea with an oral appliance - mandibular advancement device. I explained the design and mechanism of action. I explained possible side effects includingbite changes and TMD related symptoms. I explained the effectiveness of oral appliances and prognosis based on severity. Oral appliance - Panthera or Somnomed flex; favoring panthera to help with sleep bruxism We discussed titration and adjustments to the oral appliance, and watermelon inspector follow up visits. I explained the need to follow up with sleep medicine and a sleep study with the oral appliance to assess the management of LAUREL after we have titrated the oral appliance. They will call dental office to have them send us xrays prior to next visit, which is already scheduled for next week for dental impressions. Jose G Aceves DDS, Clinician located at home. Patient located at home Billing based on: complexity documented in this encounter Plan of Treatment Upcoming Encounters Date Type Specialty Care Team Description 06/12/2022 Appointment Urology Raj Castro MD [address] [place], [place] [address] (Wo rk) 09/28/2022 Telemedicine Psychiatry Humera Bush MD [address] [place], [place] [address] (Wo rk) Scheduled Referrals Name Type Priority Associated Diagnoses Order S chedule Dental Sleep Apnea Referral Routine LAUREL (obstructive sleep Ordered: 07/05/2019 Consult apnea) documented as of this encounter Visit Diagnoses Diagnosis Obstructive sleep apnea (adult) (pediatr ic) - Primary documented in this encounter Care Teams Harbor Boat Pilot Relationship Specialty Start Date End Date Rob Tillman MD PCP - General Physical Medicine and 08/01/19 [address] [facility] Rehabilitation [place], [place] [id number] documented as of this encounter
--- OUTSIDE RECORDS SUMMARY | 2022-05-27 10:17 | XMS_ITS | Encounter Summary ---
:1995 Author Organization [facility] Address [address] [place] [address] Care Team Providers Name Role Phone No Primary/Referring, Phy Primary Care Provider Unavailable Reason for Referral (Routine) - Closed Specialty Diagnoses / Procedures Referred By Contact Refer red To Contact Diagnoses Leg length discrepancy Rob Tillman MD Procedures Other-Dme [address] [place] [address] Referral ID Status Reason Start Date Expiration Date Visits Requ ested Visits Authorized [id number] Closed 07/28/2019 10/26/2020 1 1 EMS SUPPORT OFFICER Procedure/Equipment (Routine) - Closed Specialty Diagnoses / Procedures Referred By Contact Refer red To Contact Diagnoses Valgus deformity of foot, left Leg length discrepancy Rob Tillman MD [address] [place] [address] Referral ID Status Reason Start Date Expiration Date Visits Requ ested Visits Authorized [id number] Closed 07/27/2019 10/25/2020 1 1 EMS SUPPORT OFFICER Reason for Visit Reason Comments Orders Needed shoe lift Encounter Details Date Type Department Care Team Description 07/26/2019 Telephone [facility] Rob Tillman Orders Nee ded (shoe [facility] MD Sophie lift) Physical Medicine [address] [facility] [address] 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 Please fax order to House Sitter. Rob Tillman MD 07/28/2019, 1:42 PM EMS SUPPORT OFFICER Kasandra Markham - 07/26/2019 10:38 AM CST Pt is in need of a new order for his shoe lift. Provided the folling info: 1 3/4 inch Rocker toe and heel Left foot only Would like this faxed to House Sitter. EMS SUPPORT OFFICER documented in this encounter Plan of Treatment Upcoming Encounters Date Type Specialty Care Team Description 06/12/2022 Appointment Urology Raj Castro MD [address] [place], [place] [address] (Wo rk) 09/28/2022 Telemedicine Psychiatry Humera Bush MD [address] [place], [place] [address] (Wo rk) Scheduled Referrals Name Type Priority Associated Diagnoses Order S chedule Other - Order Referral Routine Valgus deformity of foot, left Ordered: 07/27/2019 Leg length discrepancy documented as of this encounter Visit Diagnoses Diagnosis Valgus deformity of foot, left - Primary Leg length discrepancy Unequal leg length (acquired) documented in this encounter Care Teams Telegraphic Typewriter Operator Chief Relationship Specialty Start Date End Date No Primary/Referring, Phy PCP - General 09/23/18 documented as of this encounter
--- OUTSIDE RECORDS SUMMARY | 2022-05-27 10:17 | XMS_ITS | Encounter Summary ---
:1995 Author Organization [employer] Address [address], [place] [address] Care Team Providers Name Role Phone No Primary/Referring, Phy Primary Care Provider Unavailable Reason for Referral Consult/Transfer Care (Routine) - Closed Specialty Diagnoses / Procedures Referred By Contact Refer red To Contact Diagnoses LAUREL (obstructive sleep apnea) Ruth Ann Khan PA-C [address] [place] [address] Referral ID Status Reason Start Date Expiration Date Visits Requ ested Visits Authorized [id number] Closed 06/13/2019 09/11/2020 1 1 Scheduling Instructions . NCIAL QUANTITATIVE ANALYST Reason for Visit Procedure/Equipment (Routine) - Closed Specialty Diagnoses / Procedures Referred By Contact Refer red To Contact Diagnoses Snoring Daytime sleepiness History of sleep apnea Ruth Ann Khan PA-C [address] [place] [address] Referral ID Status Reason Start Date Expiration Date Visits Requ ested Visits Authorized [id number] Closed 05/16/2019 08/14/2020 1 1 Encounter Details Date Type Department Care Team Description 06/12/2019 Sleep Procedure [facility] Ruth Ann Khan LAUREL (obstructive sleep apnea) (Primary Dx); [facility] IAN Fink Sleep disturbance [address] [place] [address] [place], [place] [phone] Social History Tobacco Use Types Packs/Day Years Used Date Smoking Tobacco: Never Smokeless Tobacco: Never Alcohol Use Standard Drinks/Week Comments Yes 0 (1 standard drink = 0.6 oz pure alcoho l) occasional Sex Assigned at Date Recorded 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 [facility] 1. Your sleep study needs to be reviewed by a Sleep Specialist prior to scheduling a follow-up visitor other procedure or potential treatment. 2. The review of your test can take up to 14 days, after which time your provider's clinic will be contacting you to discuss the next steps. 3. If you have any questions or problems with your treatment plan, please contact your ordering provider???s clinic as the Sleep Center technologists are not able to discuss the details of your sleep procedure. HST - Diagnostic/OA Study Patient Information Name Fly Moran Gender Male ID [id number] Date of 1995 Recording Information Recording Date 06/12/2019 Bed Time Starts 10:00 PM Recording Time 10:00 PM Bed Time Ends 6:02 AM Recording Duration 10h 48m 30s Sleep Time 8h 2m (482.2m) Respiration Overview AHI 5.1 MEHRAN 5.1 Snore Index 0.2% AHI is the number of Apneas and Hypopnea per hour. MEHRAN is the number of oxygen desaturations per hour. Snore Index is the percentage of time spent snoring versus the total time spent in bed. Respiratory Indices total supine Respiratory Count total supine Apnea/Hypopnea Index 5.1 /h 0.0 /h Apneas 7 0 Apnea Index 0.9 /h 0.0 /h Obstructive 3 0 Hypopnea Index 4.2 /h 0.0 /h Mixed 1 0 Snore Index 0.2 % 0.0 % Central 3 0 Flow Limitation Index 8.7 % 14.3 % Hypopneas 34 0 Longest Apnea 17 s - s Average Apnea 14 s - s Longest Hypopnea 45 s - s Average Hypopnea 26 s - s Saturation total supine Pulse total supine Desaturation Index 5.1 /h 0.0 /h Average Pulse 79 bpm 97 bpm Desaturation Count 41 0 Highest Pulse 159 bpm 109 bpm Lowest SpO2 81.0 % 97.0 % Lowest Pulse 59 bpm 84 bpm Average SpO2 97.2 % 98.1 % Pulse time < 40bpm 0.0 % 0.0 % Baseline SpO2 97.3 % 98.1 % Pulse time > 100bpm 4.6 % 30.5 % Desaturation < 90%: 0.0 /h 0.0 /h Average Pulse SD 5.0 bpm bpm Desaturation < 88%: 0.0 /h 0.0 /h Average Desat Drop 3.3 % % SpO2 time < 90%: 0.0 % 0.0 % Average Low Desat 95.0 % % SpO2 time < 88%: 0.0 % 0.0 % Positional & Quality Data Position and Activity Other total supine Supine Time 104.3 m 16.1 % Oximeter Quality 75.2 %Poor Non-Supine Time 534.7 m 82.4 % Flow Quality 79.3 %Poor Upright Time 9.5 m 1.5 % RIP Quality 75.0 %Poor Activity Time 101.1 m 15.6 % Paradoxical Index 0.0 % 0.0 % Invalid Data Time 0 m 0.0 % Est. Sleep Efficiency 93.8 % 5.2 % Respiration Rate 13.1 16.2 Fly Moran, [id number] Created On: 06/13/2019 9:15:05 AM HST - Diagnostic/OA Study NCIAL QUANTITATIVE ANALYST documented in this encounter Progress Notes Ida Hernandez - 06/12/2019 3:00 PM CST Images from the original note were not included. HST - Diagnostic/OA Study Patient Information Name Fly Moran Gender Male ID [id number] Date of 1995 Recording Information Recording Date 06/12/2019 Bed Time Starts 10:00 PM Recording Time 10:00 PM Bed Time Ends 6:02 AM Recording Duration 10h 48m 30s Sleep Time 8h 2m (482.2m) Respiration Overview AHI 5.1 MEHRAN 5.1 Snore Index 0.2% AHI is the number of Apneas and Hypopnea per hour. MEHRAN is the number of oxygen desaturations per hour. Snore Index is the percentage of time spent snoring versus the total time spent in bed. Respiratory Indices total supine Respiratory Count total supine Apnea/Hypopnea Index 5.1 /h 0.0 /h Apneas 7 0 Apnea Index 0.9 /h 0.0 /h Obstructive 3 0 Hypopnea Index 4.2 /h 0.0 /h Mixed 1 0 Snore Index 0.2 % 0.0 % Central 3 0 Flow Limitation Index 8.7 % 14.3 % Hypopneas 34 0 Longest Apnea 17 s - s Average Apnea 14 s - s Longest Hypopnea 45 s - s Average Hypopnea 26 s - s Saturation total supine Pulse total supine Desaturation Index 5.1 /h 0.0 /h Average Pulse 79 bpm 97 bpm Desaturation Count 41 0 Highest Pulse 159 bpm 109 bpm Lowest SpO2 81.0 % 97.0 % Lowest Pulse 59 bpm 84 bpm Average SpO2 97.2 % 98.1 % Pulse time < 40bpm 0.0 % 0.0 % Baseline SpO2 97.3 % 98.1 % Pulse time > 100bpm 4.6 % 30.5 % Desaturation < 90%: 0.0 /h 0.0 /h Average Pulse SD 5.0 bpm bpm Desaturation < 88%: 0.0 /h 0.0 /h Average Desat Drop 3.3 % % SpO2 time < 90%: 0.0 % 0.0 % Average Low Desat 95.0 % % SpO2 time < 88%: 0.0 % 0.0 % Positional & Quality Data Position and Activity Other total supine Supine Time 104.3 m 16.1 % Oximeter Quality 75.2 %Poor Non-Supine Time 534.7 m 82.4 % Flow Quality 79.3 %Poor Upright Time 9.5 m 1.5 % RIP Quality 75.0 %Poor Activity Time 101.1 m 15.6 % Paradoxical Index 0.0 % 0.0 % Invalid Data Time 0 m 0.0 % Est. Sleep Efficiency 93.8 % 5.2 % Respiration Rate 13.1 16.2 Fly Moran, [id number] Created On: 06/13/2019 9:15:05 AM HST - Diagnostic/OA Study NCIAL QUANTITATIVE ANALYST Ruth Ann Vegas MD - 06/12/2019 3:00 PM CST Home Sleep Test (HST) Interpretation Date of Interpretation: 06/15/2019 BMI: Estimated body mass index is 26.26 kg/m?? as calculated from the following: Height as of this encounter: 5' 1 (1.549 m). Weight as of this encounter: 139 lb (63 kg). Aurora Score: Aurora Score: 14 Neck Circumference: 14.5 Device Name/Type: Carefusion NOX-T3 (Type III) Hypopnea Definition: AASM Rule: Technical Quality: 99 % This home sleep test was performed as a/an Diagnostic study without a sleep partner in bed. 1. The total recording time was 482.2 [...] EKG: No significant cardiac arrhythmias were noted Impression: 1. This study indicates at least mild obstructive sleep apnea. Recommendations: 1. Consider trial of auto-titrating CPAP with close clinical follow-up given degree of hypersomnia. If not tolerated, patient may be candidate for an oral appliance. 2. Would suggest optimizing sleep hygiene measures, especially avoiding alcohol and sedatives. Avoiding sleep deprivation would also be beneficial. 3. The patient should avoid dangers of driving while excessively drowsy. 4. Weight management if indicated. I attest that I have conducted an epoch by epoch review of all of the raw data for this sleep study. Ruth Ann Vegas MD NCIAL QUANTITATIVE ANALYST documented in this encounter Nursing Notes Ida Hernandez - 06/12/2019 3:00 PM CST Patient was given the option to begin treatment immediately if HST shows mild/moderate apnea and possible titration for severe apnea or she may choose a follow up with a sleep provider. Patient prefersto follow up with a sleep provider before proceeding with treatment if HST is positive for LAUREL. NCIAL QUANTITATIVE ANALYST Ida Hernandez - 06/12/2019 3:00 PM CST HST/diagnostic. Patient slept in both supine and lateral positions. Study shows that the patient hasa mild degree of sleep apnea. EKG appears normal. No snores were heard on this recording. A follow up order was placed per patient preference before proceeding with treatment. NCIAL QUANTITATIVE ANALYST documented in this encounter Plan of Treatment Upcoming Encounters Date Type Specialty Care Team Description 06/12/2022 Appointment Urology Raj Castro MD [address] [place], [place] [address] (Wo rk) 09/28/2022 Telemedicine Psychiatry Humera Bush MD [address] [place], [place] [address] (Wo rk) Scheduled Referrals Name Type Priority Associated Diagnoses Order S chedule SLEEP STUDY RESULTS Referral Routine LAUREL (obstructive slee p Ordered: 06/13/2019 (PULM) apnea) documented as of this encounter Visit Diagnoses Diagnosis LAUREL (obstructive sleep apnea) - Primary Obstructive sleep apnea (adult) (pediatr ic) Sleep disturbance Sleep disturbance, unspecified documented in this encounter Care Teams Digital Media Representative Relationship Specialty Start Date End Date No Primary/Referring, Phy PCP - General 09/23/18 documented as of this encounter
--- OUTSIDE RECORDS SUMMARY | 2022-05-27 10:17 | XMS_ITS | Encounter Summary ---
:1995 Author Organization [employer] Address [address] [place] [address] Care Team Providers Name Role Phone Rob Tillman MD Primary Care Provider Reason for Visit Reason Comments Rachelle Prior Authorization For Medication Encounter Details Date Type Department Care Team Description 08/18/2019 Telephone [facility] Humera Bush Reeve; Prior [address] JIMENEZ Authorization For S. 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 Approved from 06/28/2019- 08/18/2020. Pharmacy notified and will notify pt. Tomeka Adams RN 08/21/2019, 9:19 AM RVISOR PLASTIC SHEETS Tomeka Adams RN - 08/18/2019 1:58 PM CST Received a letter from Lindy Fuller stating the need for a PA for Methylphenidate tab 54 mg ER. PA initiated. Tomeka Adams, RN 08/18/2019, 1:59 PM RVISOR PLASTIC SHEETS documented in this encounter Plan of Treatment Upcoming Encounters Date Type Specialty Care Team Description 06/12/2022 Appointment Urology Raj Castro MD [address] [place], [place] [address] (Wo rk) 09/28/2022 Telemedicine Psychiatry Humera Bush MD [address] [place], [place] [address] (Wo rk) documented as of this encounter Visit Diagnoses Not on filedocumented in this encounter Care Teams Video Recorder Mechanic Relationship Specialty Start Date End Date Rob Tillman MD PCP - General Physical Medicine and 08/01/19 [address] [facility] [place] [address] documented as of this encounter
--- OUTSIDE RECORDS SUMMARY | 2022-05-27 10:17 | XMS_ITS | Encounter Summary ---
:1995 Author Organization [employer] Address [address] [place] [address] Care Team Providers Name Role Phone No Primary/Referring, Phy Primary Care Provider Unavailable Reason for Visit Reason Comments Concerns Encounter Details Date Type Department Care Team Description 04/12/2019 Telephone Specialty Center [address] Raj Castro MD Concerns Urology Clinic [address] [facility] 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 Pt reported that this first started about two weeks ago and has been experiencing off and on, not every time he voids. Pt admitted to rarely performing CIC. Discussed the possibility that pt may be in overflow retention and effects that could result in for pt's body such as hydronephrosis, renal dysfunction, and UTI. Therefore, this RN suggested CIC TID per Dr. Castro's 09/06/18 OV note. Pt reported he had multiple months worth of catheters and would start to perform CIC TID per Dr. Castro's recs. Pt denied other questions or concerns and will call if arise. Angeles Castro RN 04/13/2019, 9:27 AM Hafsa Larson - 04/12/2019 4:19 PM CDT Patient called, states he has new concerns that he would like to speak with nurse about. It's about patient's urge to urine again right after urinating. Please advise. Hafsa Larson 04/12/2019, 4:20 PM documented in this encounter Plan of Treatment Upcoming Encounters Date Type Specialty Care Team Description 06/12/2022 Appointment Urology Raj Castro MD [address] [place], [place] [address] (Wo rk) 09/28/2022 Telemedicine Psychiatry Humera Bush MD [address] [place], [place] [address] (Wo rk) documented as of this encounter Visit Diagnoses Not on filedocumented in this encounter Care Teams Sample Builder Relationship Specialty Start Date End Date No Primary/Referring, Phy PCP - General 09/23/18 documented as of this encounter
--- OUTSIDE RECORDS SUMMARY | 2022-05-27 10:17 | XMS_ITS | Encounter Summary ---
:1995 Author Organization [facility] Address [address] [place] [address] Care Team Providers Name Role Phone Rob Tillman MD Primary Care Provider Reason for Visit Procedure/Equipment (Routine) - Incomplete Specialty Diagnoses / Procedures Referred By Contact Refer red To Contact Diagnoses Spina bifida without hydrocephalus, unspecified spinal region (HRC) Rob Tillman MD Procedures CT Head WO IV Cont [address] [place] [address] Referral ID Status Reason Start Date Expiration Date Visits V isits Requested Authorized [id number] Incomplete 07/28/2019 10/26/2020 1 1 Encounter Details Date Type Department Care Team Description [facility]2019 [facility] CT Rob Barrios MD without 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 documented in this encounter Results CT Head WO IV Cont (08/18/2019 12:06 PM FLAT LOCKER) Anatomical Region Laterality Modality Head Computed Tomography Specimen (Source) Anatomical Collection Method Collection Time Re ceived Time Location / / Volume Laterality 08/18/2019 12:06 PM FLAT LOCKER Narrative 08/18/2019 3:40 PM FLAT LOCKER EXAM: CT HEAD WO IV CONT LOCATION: [facility] DATE/TIME: 08/18/2019 12:06 PM INDICATION: History of spina bifida, now with increased memory issues, fatigue, and anxiety. Please rule out acute active process. COMPARISON: Brain MRI 05/10/2014. TECHNIQUE: Routine without IV contrast. Multiplanar reformats. Dose reduction techniques were used. FINDINGS: INTRACRANIAL CONTENTS: No intracranial h emorrhage, extraaxial collection, or mass effect. Right parietal approach shunt catheter terminating within the body of the right lateral ventricle. Diffuse enlar gement of the lateral ventricle preferen tially involving the atria and posterior bodies. Stable enlargement of the third ventricle. The pattern is unchanged compared to 05/10/2014. No evidence for trans ependymal edema or temporal horn dilatio n. Nodular heterotopia along the ventricular margin, better seen on previous MRI. No shift in midline structures. Chiari II malformation. VISUALIZED ORBITS/SINUSES/MASTOIDS: No i ntraorbital abnormality. No paranasal sinus mucosal disease. No middle ear or mastoid effusion. BONES/SOFT TISSUES: No acute abnormality . IMPRESSION: 1. ??No acute intracranial process. 2. ??Right parietal approach shunt chao ter with stable enlargement of the ventricular system. 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 Procedure Note Sundblad, Luis Armando J, MD - 08/18/2019Forma tting of this note might be different from the original. EXAM: CT HEAD WO IV CONT LOCATION: [facility] DATE/TIME: 08/18/2019 12:06 PM INDICATION: History of spina bifida, now with increased memory issues, fatigue, and anxiety. Please rule out acute active process. COMPARISON: Brain MRI 05/10/2014. TECHNIQUE: Routine without IV contrast. Multiplanar reformats. Dose reduction techniques were used. FINDINGS: INTRACRANIAL CONTENTS: No intracranial h emorrhage, extraaxial collection, or mass effect. Right parietal approach shunt catheter terminating within the body of the right lateral ventricle. Diffuse enlargement of the lateral ventricle preferentially involvi ng the atria and posterior bodies. Stable enlargement of the third ventricle. The pattern is unchanged compared to 05/10/2014. No evidence for transependymal edema or temporal horn dilation. Nodular heterotopia along the ventricular margin, better seen on previous MRI. No shift in midline structures. Chiari II malformation. VISUALIZED ORBITS/SINUSES/MASTOIDS: No i ntraorbital abnormality. No paranasal sinus mucosal disease. No middle ear or mastoid effusion. BONES/SOFT TISSUES: No acute abnormality . IMPRESSION: 1. No acute intracranial process. 2. Right parietal approach shunt cathete r with stable enlargement of the ventricular system. 3. Chiari II malformation. Rob Tillman MD RAD CT documented in this encounter Visit Diagnoses Diagnosis Spina bifida without hydrocephalus, unsp ecified spinal region (HRC) documented in this encounter Care Teams Barrel Filler Relationship Specialty Start Date End Date Rob Tillman MD PCP - General Physical Medicine and 08/01/[address] [place] [address] [place] [address] documented as of this encounter
--- OUTSIDE RECORDS SUMMARY | 2022-05-27 10:17 | XMS_ITS | Encounter Summary ---
:1995 Author Organization [facility] Address [address], [place] [address] Care Team Providers Name Role Phone No Primary/Referring, Phy Primary Care Provider Unavailable Reason for Visit Reason Comments Follow Up, Test Results Consult/Transfer Care (Routine) - Closed Specialty Diagnoses / Procedures Referred By Contact Refer red To Contact Diagnoses LAUREL (obstructive sleep apnea) Ruth Ann Khan PA-C [address] [place] [address] Referral ID Status Reason Start Date Expiration Date Visits Requ ested Visits Authorized [id number] Closed 06/13/2019 09/11/2020 1 1 Encounter Details Date Type Department Care Team Description 07/28/2019 Office Visit Specialty Center Steph Sood, LAUREL ( obstructive sleep [facility] WIND ENERGY ENGINEER, SHIPPER/RECEIVER apnea) (Primary Dx) Clinic [address] [place] [address]. 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 documented as of this encounter Last Filed Vital Signs Vital Sign Reading Time Taken Comments Blood Pressure 121/81 07/28/2019 2:27 PM PLANOGRAPH OPERATOR Pulse 105 07/28/2019 2:27 PM PLANOGRAPH OPERATOR Temperature 36.6 ??C (97.8 ??F) 07/28/2019 2:01 PM PLANOGRAPH OPERATOR Respiratory Rate 12 07/28/2019 2:01 PM PLANOGRAPH OPERATOR Oxygen Saturation 100% 07/28/2019 2:01 PM PLANOGRAPH OPERATOR Inhaled Oxygen Concentration - - Weight 57.7 kg (127 lb 3.2 oz) 07/28/2019 2:01 PM PLANOGRAPH OPERATOR Height 154.9 cm (5' 1) 07/28/2019 2:01 PM PLANOGRAPH OPERATOR Body Mass Index 24.03 07/28/2019 2:01 PM PLANOGRAPH OPERATOR documented in this encounter Patient Instructions Patient InstructionsSteph Sood, WIND ENERGY ENGINEER, SHIPPER/RECEIVER - 07/28/2019 1:45 PM CST If you do not feel the benefits of the oral appliance (or if you are not a candidate), contact our clinic and I will place an order for auto CPAP (with your dad's machine). Optimize sleep hygiene measures, especially avoiding alcohol and sedatives. Avoiding sleep deprivation would also be beneficial. Exercise. Follow up to be determined. Definitions Apnea: cessation, or near cessation, of airflow Hypopnea: a reduction of airflow whose severity is insufficient to meet the criteria for an apnea. RDI - Respiratory disturbance index - Total number of events (apneas, hypopneas per hour of sleep. 5-15 = mild obstructive sleep apnea Scheduling Instructions DENTAL DEVICE FOR SLEEP APNEA: ??Your physician has ordered that you receive a dental orthotic for sleep apnea. Dental devices are created by dental providers, however are usually covered under your medical insurance. ??In most cases, your medical insurance will require prior authorization for the dental device. Remember, prior authorization does not mean you are covered 100% - you may be responsiblefor a co-payment, co-insurance and/or deductible. ?? INSURED BY [employer]: If you are insured by [employer] and plan to use a [employer] or [employer] Partner Provider of Dental Orthotics, we will request prior authorization for you. You will be notified by [employer] of their decision. If approved and if you plan to use a [employer] Provider of Dental Orthotics, the dental office will contact you to schedule an appointment. ? If you have not been called, please call one of these clinics where this service is provided ?? [facility] [phone]. [facility] (scheduling at [facility], Counselor and [place]) [phone]. ? If you choose to use a non-HP or HP Partner provider, you will be responsible for working with your dentist and insurance company to obtain prior authorization. ?? NON-[facility] INSURANCE: You will be responsible for working with your dentist and insurance company to obtain prior authorization. ??Today you will be provided with the order for the dental orthotic. Additional information will be provided upon request. It may take up to 4 weeks for your insurance company to make a determination on prior authorization. OGRAPH OPERATOR documented in this encounter Progress Notes Steph Sood APRN, CNP - 07/28/2019 1:45 PM CST Chief Complaint Fly Moran is a 24 y.o. old male who is here to discuss results of Home Sleep Test and develop aplan of care. S: HPI Patient was originally seen for complaints of daytime sleepiness, snoring and untreated LAUREL. Baseline [place] Sleepiness Score was 14/24. A Home Sleep Test was recommended and completed on 06/12/2019. Patient reports he slept well the night of his test. Patient is here with his mother, Norma who also helps with the history. Norma states patient has been more anxious, depressed and has low energy. He has a history of SAD and recently started using his light box again, about 30 minutes per daywhen he is on his computer at home on the morning. Patient is willing to try an oral appliance to treat his mild obstructive sleep apnea. However, his father has a CPAP machine that is not being used so if he needed a CPAP, they would prefer to use that machine. Past Medical History: Patient Active Problem List Diagnosis ??? 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 ARIPiprazole (ABILIFY) 2 MG tablet Take 5 mg by mouth daily. ??? Carnitine 250 MG 500 mg Codeine daily. ??? cetirizine (ZYRTEC) 10 MG tablet Take 1 Tablet by mouth. 06/30/2018: PRN ??? cholecalciferol (VITAMIN D3) 1000 units tablet Take 5,000 Units by mouth daily. ??? clomiPRAMINE (ANAFRANIL) 25 MG capsule Take 100 mg by mouth every evening. ??? Methylphenidate HCl (RITALIN OR) Take 2 Tablets by mouth daily. ??? Multiple Vitamins-Minerals (CENTRUM ADULTS OR) daily. ??? WELLBUTRIN XL 300 MG 24 hour release tablet No current facility-administered medications for this visit. O: Results of vital signs today reviewed. BP 121/81 (BP Location: Other) Comment (BP Location): Right wrist Pulse (!) 105 Temp 97.8 ??F (36.6 ??C) (Tympanic) Resp 12 Ht 5' 1 (1.549 m) Wt 127 lb 3.2 oz (57.7 kg) SpO2 100% BMI 24.03 kg/m?? General: The patient is a very pleasant, well groomed male in no acute distress with appropriate conversation and mannerisms. Results of Home Sleep Test on 06/12/[address] [place] are as follows: This home sleep test was performed as [...] indicates at least mild obstructive sleep apnea. Assessment/Plan #1 Obstructive sleep apnea The pathophysiology of obstructive sleep apnea and study findings were reviewed in detail with the patient and mother. Patient appears willing to address his daytime sleepiness and sleep apnea with an oral appliance. Patient given options for medical record retrieval specialist providers and patient chose [facility]. Reviewed other options for treating sleep apnea today. Patient reminded of risks associated with untreated obstructive sleep apnea such as high blood pressure, heart disease, stroke and motor vehicle accidents. Exercise encouraged. Phone number given for patient to schedule with the dental clinic. Referral was placed by Ruth Ann Ca PA-C on 07/05/2019. If patient does not feel the benefits after 1-2 months at his final setting, will recommend auto CPAP 5-15 cmH2O. See AVS for additional patient instructions reviewed during visit. Patient to return to clinic as needed. Time spent with patient 30 minutes, over half of which was spent in education, counseling, and coordination of care. Steph Sood APRN, CNP OGRAPH OPERATOR documented in this encounter Plan of Treatment Upcoming Encounters Date Type Specialty Care Team Description 06/12/2022 Appointment Urology Raj Castro MD [address] [place], [place] [address] (Jeannie osei) 09/28/2022 Telemedicine Psychiatry Humera Bush MD [address] [place], [place] [address] (Jeannie osei) Scheduled Referrals Name Type Priority Associated Diagnoses Order S chedule SLEEP STUDY RESULTS Referral Routine LAUREL (obstructive slee p Ordered: 06/13/2019 (PULM) apnea) documented as of this encounter Visit Diagnoses Diagnosis LAUREL (obstructive sleep apnea) - Primary Obstructive sleep apnea (adult) (pediatr ic) documented in this encounter Care Teams Footwear Production Machine Operator Relationship Specialty Start Date End Date No Primary/Referring, Phy PCP - General 09/23/18 documented as of this encounter
--- OUTSIDE RECORDS SUMMARY | 2022-05-27 10:17 | XMS_ITS | Encounter Summary ---
:1995 Author Organization [facility] Address [address] [place] [address] Care Team Providers Name Role Phone No Primary/Referring, Phy Primary Care Provider Unavailable Encounter Details Date Type Department Care Team Description 04/20/2019 Lab Visit [facility] Hodgkin lymphoma, [address] 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 ONCOLOGY COMPLETE Routine 04/20/2019 9:04 AM Hodgkin lymphoma, Results for this METABOLIC PANEL CDT unspecified, lymph proced ure are in nodes of axilla and the resu lts upper limb (HRC) section. COMPLETE BLOOD Waiting 04/20/2019 9:04 AM Hodgkin lymphoma, Re sults for this COUNT-W/DIFF CDT unspecified, lymph procedure are in nodes of axilla and the resu lts upper limb (HRC) section. LIVER PANEL(HEPATIC Routine 04/20/2019 9:04 AM Hodgkin lymphom a, Results for this FUNCTION PANEL) CDT unspecified, lymph proced ure are in nodes of axilla and the resu lts upper limb (HRC) section. TSH, SENSITIVE (WITH Routine 04/20/2019 9:04 AM Hodgkin lympho ma, Results for this REFLEX) CDT unspecified, lymph procedure are in nodes of axilla and the resu lts upper limb (HRC) section. documented in this encounter Results (ABNORMAL) Complete Blood Count-W/Diff (04/20/2019 9:04 AM CDT) Analysis Performed At Patho logist Time Signature WBC 4.2 3.5 - 10.5 04/20/2019 [facility] x10(9)/L 9:09 AM CDT RBC 5.55 4.32 - 04/20/2019 [facility] 5.72 9:09 AM CDT x10(12)/L Hemoglobin 17.5 13.5 - 04/20/2019 [facility] 17.5 g/dL 9:09 AM CDT HCT 50.3 (H) 38.8 - 04/20/2019 [facility] 50.0 % 9:09 AM CDT MCV 90.6 80.0 - 04/20/2019 [facility] 100.0 fL 9:09 AM CDT MCH 31.5 27.6 - 04/20/2019 [facility] 33.3 pg 9:09 AM CDT MCHC 34.8 31.5 - 04/20/2019 [facility] 35.2 g/dL 9:09 AM CDT RDW 12.3 11.9 - 04/20/2019 [facility] 15.5 % 9:09 AM CDT Platelets 257 150 - 450 04/20/2019 [facility] x10(9)/L 9:09 AM CDT Neutrophil 2.3 1.7 - 7.0 04/20/2019 [facility] Absolute 10(9)/L 9:09 AM CDT Lymphocyte 1.1 1.0 - 4.8 04/20/2019 [facility] Absolute 10(9)/L 9:09 AM CDT Monocytes 0.5 0.2 - 0.9 04/20/2019 [facility] Absolute 10(9)/L 9:09 AM CDT Eosinophil 0.2 0.0 - 0.5 04/20/2019 [facility] Absolute 10(9)/L 9:09 AM CDT Basophil 0.1 0.0 - 0.3 04/20/2019 [facility] Absolute 10(9)/L 9:09 AM CDT Immature Gran % 0.0 0.0 - 0.5 04/20/2019 [facility] % 9:09 AM CDT Specimen Anatomical Collection Method / Collection Time Recei rufus Time (Source) Location / Volume Laterality Blood Venipuncture / 04/20/2019 9:04 04/20/2019 9:04 Unknown AM CDT AM CDT Wyatt Oneil MD LAB_1 Performing Organization Address City/State/ZIP Code Phon e Number [facility] [address] [place] [address] [facility] (ABNORMAL) Oncology Complete Metabolic Panel ([facility] ONLY) (04/20/2019 9:04 AM CDT) P athologist Signature Sodium, WB 139 136 - 145 04/20/2019 [facility] mmol/L 10:10 AM CDT Potassium, Whole 3.9 3.5 - 5.1 04/20/2019 [facility] B Blood mmol/L 10:10 AM CDT CO2 31 (H) 20 - 29 04/20/2019 [facility] mmol/L 10:10 AM CDT Chloride, Whole 102 95 - 106 04/20/2019 [facility] Blood mmol/L 10:10 AM CDT Glucose, Whole 73 70 - 180 04/20/2019 [facility] Blood mg/dL 10:10 AM CDT Calcium 9.9 8.4 - 10.4 04/20/2019 [facility] mg/dL 10:10 AM CDT BUN Whole Blood 18 7 - 20 04/20/2019 [facility] mg/dL 10:10 AM CDT Creatinine, 0.9 0.7 - 1.2 04/20/2019 [facility] Whole Blood mg/dL 10:10 AM CDT Alkaline 68 40 - 150 04/20/2019 [facility] Phosphatase U/L 10:10 AM CDT ALT (SGPT) 73 (H) 0 - 55 U/L 04/20/2019 [facility] 10:10 AM CDT AST (SGOT) 37 10 - 40 04/20/2019 [facility] U/L 10:10 AM CDT Bilirubin, Total 0.8 0.2 - 1.2 04/20/2019 [facility] mg/dL 10:10 AM CDT Albumin 4.0 3.5 - 5.0 04/20/2019 [facility] g/dL 10:10 AM CDT Protein, Total 7.7 6.4 - 8.3 04/20/2019 [facility] g/dL 10:10 AM CDT Specimen Anatomical Collection Method / Collection Time Recei rufus Time (Source) Location / Volume Laterality Blood Venipuncture / 04/20/2019 9:04 04/20/2019 9:04 Unknown AM CDT AM CDT Wyatt Oneil MD LAB_1 Performing Organization Address City/State/ZIP Code Phon e Number [facility] [place] [address] [facility] TSH with Free T4 (if TSH Abnormal) (04/20/2019 9:04 AM CDT) P athologist Signature TSH, Reflex 1.91 0.30 - 04/20/2019 [facility] 4.50 12:07 PM CDT [facility] uIU/mL Specimen Anatomical Collection Method / Collection Time Recei rufus Time (Source) Location / Volume Laterality Blood Venipuncture / 04/20/2019 9:04 04/20/2019 9:04 Unknown AM CDT AM CDT Narrative [facility] - 04/20/2019 12:07 PM CDT Lab will automatically reflex to Free T4 when TSH results are <0.30 uIU/mL or >4.50 mIU/mL. Wyatt Oneil MD LAB_1 Performing Organization Address City/State/ZIP Code Phon e Number [facility] [address] [address] (ABNORMAL) Liver Panel(Hepatic Function Panel) (04/20/2019 9:04 AM CDT) [facility] Method Time Signature Alkaline 71 40 - 150 04/20/2019 [facility] Phosphatase U/L 11:49 AM CDT [facility] Bilirubin, 0.6 0.2 - 1.2 04/20/2019 [facility] Total mg/dL 11:49 AM CDT [facility] Bilirubin, 0.2 0.0 - 0.5 04/20/2019 [facility] Direct mg/dL 11:49 AM CDT [facility] AST (SGOT) 30 10 - 40 04/20/2019 [facility] U/L 11:49 AM CDT [facility] ALT (SGPT) 71 (H) 0 - 55 04/20/2019 [facility] U/L 11:49 AM CDT [facility] Protein, Total 7.8 6.4 - 8.3 04/20/2019 [facility] g/dL 11:49 AM CDT [facility] Albumin 4.4 3.5 - 5.0 04/20/2019 [facility] g/dL 11:49 AM CDT [facility] Specimen Anatomical Collection Method / Collection Time Recei rufus Time (Source) Location / Volume Laterality Blood Venipuncture / 04/20/2019 9:04 04/20/2019 9:04 Unknown AM CDT AM CDT Wyatt Oneil MD LAB_1 Performing Organization Address City/State/ZIP Code Phon e Number [facility] [address] [address] documented in this encounter Visit Diagnoses Diagnosis Hodgkin lymphoma, unspecified, lymph nod es of axilla and upper limb (HRC) documented in this encounter Care Teams Automatic Vulcanizing Operator Relationship Specialty Start Date End Date No Primary/Referring, Phy PCP - General 09/23/18 documented as of this encounter
--- OUTSIDE RECORDS SUMMARY | 2022-05-27 10:17 | XMS_ITS | Encounter Summary ---
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
--- OUTSIDE RECORDS SUMMARY | 2022-05-27 10:17 | XMS_ITS | Encounter Summary ---
:1995 Author [facility] Address [address] [place] [address] Care Team Providers Name Role Phone No Primary/Referring, Phy Primary Care Provider Unavailable Reason for Referral Procedure/Equipment (Routine) - Closed Specialty Diagnoses / Procedures Referred By Contact Refer red To Contact Diagnoses Snoring Daytime sleepiness History of sleep apnea Ruth Ann Khan PA-C [address] [place] [id number] Referral ID Status Reason Start Date Expiration Date Visits Requ ested Visits Authorized [id number] Closed 05/16/2019 08/14/2020 1 1 Scheduling Instructions Your provider has placed an order for yo u to have a home sleep test. You will be contacted within the next 3 business day s to discuss the scheduling your set-up and return appointments for this device. The re may be a delay in the set-up of your home sleep test due to insurance coverage jami ification and prior-authorization requirements. The location and contact i nformation for the site where you will corn picker your device is as follows: [facility] A [address] [address] (option 2) [email or web address] 1. You will be scheduled for 2 visits to the sleep center (set up and return). Please allow up to 1 hour for each appointment, as there will be a significant amount of information covered in order to ensure y our test is a successful one. 2. Please notify us immediately at (option 2) if you are unable to keep your appointments. Failure to cance l or re-schedule your appointment will result in a cancellation fee. 3. Based upon the results of your home s leep test one of the following may occur: a.You may be referred back to your [facility] provider for a results visit to discuss the next steps. b.You may be referred for an in-center sleep study for a more thorough diagnostic test. c.You may be referred for an in-center sleep study to titrate Positive Airway Pressure (PAP) for treatment of obstruct edwin sleep apnea (LAUREL). NESS OBJECTS CONSULTANT Reason for Visit Reason Comments New Arrival Screening #1 Referred by sindi Coello k measures 14.5 inches. Consult/Transfer Care (Routine) - Closed Specialty Diagnoses / Procedures Referred By Contact Refer red To Contact Diagnoses History of snoring Rob Tillman MD [address] [place] [address] Referral ID Status Reason Start Date Expiration Date Visits Requ ested Visits Authorized [id number] Closed 04/03/2019 07/02/2020 1 1 Encounter Details Date Type Department Care Team Description 05/16/2019 Office Visit Specialty Center Ruth Ann Khan (Primary Dx); [facility] Daytime sleepiness; Clinic [address] History of sleep apnea; [address] 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 documented as of this encounter Last Filed Vital Signs Vital Sign Reading Time Taken Comments Blood Pressure 120/78 05/16/2019 1:39 PM BUSINESS OBJECTS CONSULTANT Pulse 104 05/16/2019 1:39 PM BUSINESS OBJECTS CONSULTANT Temperature 36.2 ??C (97.1 ??F) 05/16/2019 1:39 PM BUSINESS OBJECTS CONSULTANT Respiratory Rate 12 05/16/2019 1:39 PM BUSINESS OBJECTS CONSULTANT Oxygen Saturation 99% 05/16/2019 1:39 PM BUSINESS OBJECTS CONSULTANT Inhaled Oxygen Concentration - - Weight 63 kg (139 lb) 05/16/2019 1:39 PM BUSINESS OBJECTS CONSULTANT Height 154.9 cm (5' 1) 05/16/2019 1:39 PM BUSINESS OBJECTS CONSULTANT Body Mass Index 26.26 05/16/2019 1:39 PM BUSINESS OBJECTS CONSULTANT documented in this encounter Patient Instructions Patient InstructionsRuth Ann Khan PA-C - 05/16/2019 1:45 PM CST A sleep test is recommended to further evaluate your symptoms. I ordered a home sleep test and someone will call you to set up a date and time to corn picker the home sleep test equipment and instruct you on how to use it. We will call you with the results so you can decide which treatment you prefer to go with. You should be aware that these are expensive tests and treatments and I would recommend that you check with your insurance for coverage prior to having the tests and treatments done. Avoid Driving While Drowsy Remember that untreated sleep apnea can lead to cardiovascular events such as heart attack, stroke, high blood pressure, insulin resistance and cognitive impairment. The following measures and instructions are designed to help you achieve good sleep: Sleep Hygiene for people with trouble sleeping Allow at least a 1-hour period to unwind before bedtime. Reduce time in bed - if you are awake in bed more than 20 minutes and think that you will not fall asleep shortly, get out of bed and move to a different room. Do a quiet activity until you feel sleepy, then return to bed. Avoid trying to sleep, go to bed only when you feel like you can fall asleep. Avoid clock watching - turn your clock around so that you can't see it. Always get up at the same time every day-maintain a regular sleep schedule. Avoid late night exercise, but try to get regular exercise during the day Avoid tobacco Avoid alcohol-Alcohol fragments your sleep. Avoid caffeine-Caffeine can prevent good sleep for up to 12 hours after ingested Avoid falling asleep with the TV or radio on. Keep bedroom environment, quiet, dark, and at a comfortable temperature. Avoid large meals before bedtime. Limit liquids in the evening. Avoid Daytime Napping On IPAD try court assistant to shut off blue light There is an fermin to remove blue light from your computer OMEGA MORGAN NESS OBJECTS CONSULTANT documented in this encounter Progress Notes Ruth Ann Khan PA-C - 05/16/2019 1:45 PM CST PULMONARY SLEEP CONSULT CHIEF COMPLAINT: Fly Moran is a 23 y.o. old male here for a sleep consultation regarding daytime sleepiness, snoring and untreated LAUREL. He completed a PSG at [facility] about 8 years ago and opted not to treat what he remembers to be mild LAUREL. (we do not have those results) He has more daytime sleepiness now even aftersleeping 10 hours, so he came in to be re-evaluated. HISTORY OF PRESENT ILLNESS: Patient states sleep has been a problem for >8 years. Snoring is: minimal. Patient does not awaken with choking/gasping/shortness of breath. Patient does not awaken with headache, does not awaken with dry mouth/sore throat. Patient does not have symptoms of gastroesophageal reflux. The average time to bed is 8pm during the work week and on weekends. The average time to get to sleep is 5 minutes. Patient does not awaken from sleep. Patient awakens usually at 5am during the week and 8am on weekends. Upon waking the patient is with feeling tired. Number of caffeinated beverages each day: 3-5 Throughout the daytime the patient has moderate sleepiness. Patient has had a decrease in concentration, or memory. Sleepiness does affect daytime function. Motor vehicle accidents have not occurred due to sleepiness. Average number of naps each day: none [place]roke sleepiness score is 14/24. Movement during sleep does not consist of leg movements, and or kicking. Patient does not talk, walk in sleep. Patient does have symptoms of bruxism. Patient does not have cataplexy. Patient does not have sleep paralysis. Patient does not have hypnogogic dreams. Patient Active Problem List Diagnosis ??? Hodgkin lymphoma, unspecified, lymph nodes of axilla and upper limb (HRC) ??? Spina bifida (HRC) ??? 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 ALLERGIES: Latex; Pollen extract; Adhesive; Molds & smuts; and Other SOCIAL HISTORY: Smoking status: NEVER SMOKED Average number of alcoholic drinks each week: 0. Drug Use: none FAMILY SLEEP HISTORY: Father has LAUREL Review of Systems: As outlined above. CONSTITUTIONAL: fatigue EYES: glasses ENT: negative CARDIOVASCULAR: negative GASTROINTESTINAL: negative GENITOURINARY: negative MUSCULOSKELETAL: negative SKIN: negative NEUROLOGIC: Trouble walking, numbness and tingling HEMATOLOGIC/LYMPHATIC/IMMUNOLOGIC: negative PHYSICAL EXAMINATION: Today's vitals reviewed: BP 120/78 Pulse (!) 104 Temp 97.1 ??F (36.2 ??C) (Tympanic) Resp 12 Ht 5' 1 (1.549 m) Wt 139 lb (63 kg) SpO2 99% BMI 26.26 kg/m?? General appearance: The patient is a pleasant, well groomed in no acute distress with appropriate conversation and mannerisms. Head: normal cephalic Oropharynx: Mallampati class 2-3. Skin: Exposed skin color normal. Neuro: A & O. Speech normal, patient is in a wheelchair. ASSESSMENT/PLAN ICD-10-CM 1. Snoring R06.83 Sleep Study (Home)-Portable Setup 2. Daytime sleepiness R40.0 Sleep Study (Home)-Portable Setup 3. History of sleep apnea Z86.69 Sleep Study (Home)-Portable Setup 4. Spina bifida, unspecified hydrocephalus presence, unspecified spinal region (HRC) Q05.9 5. Hodgkin lymphoma, unspecified, lymph nodes of axilla and upper limb (HRC) C81.94 We discussed HST versus in center study for testing and he chose HST. We also discussed treatment options based on severity. HST ordered. Patient wants to be called with results before making a decision on treatment option. He is interested in the MAD if his LAUREL is still mild. See AVS for additional patient instructions reviewed during visit. Thank you for allowing me to participate in your patient's care. If you have any questions, please feel free to contact me. Time spent with patient 45 minutes, over half of which was spent in education, counseling, and coordination of care. Ruth Ann Khan PA-C 05/16/19 NESS OBJECTS CONSULTANT documented in this encounter Plan of Treatment Upcoming Encounters Date Type Specialty Care Team Description 06/12/2022 Appointment Urology Raj Castro MD [address], [place] [address] (Wo rk) 09/28/2022 Telemedicine Psychiatry Humera Bush MD [address] [place], [place] [address] (Jeannie osei) Scheduled Referrals Name Type Priority Associated Diagnoses Order S chedule Sleep Study Referral Routine Snoring Ordered: 05/16/2019 (Home)-Portable Setup Daytime sl eepiness History of sleep apnea documented as of this encounter Visit Diagnoses Diagnosis Snoring - Primary Other dyspnea and respiratory abnormalit y Daytime sleepiness History of sleep apnea Personal history of other specified dise ases Spina bifida, unspecified hydrocephalus presence, unspecified spinal region (HRC) Hodgkin lymphoma, unspecified, lymph nod es of axilla and upper limb (HRC) documented in this encounter Care Teams Studio Designer Relationship Specialty Start Date End Date No Primary/Referring, Phy PCP - General 09/23/18 documented as of this encounter
--- OUTSIDE RECORDS SUMMARY | 2022-05-27 10:17 | XMS_ITS | Encounter Summary ---
:1995 Author Organization [email or web address] Address [address] [place] [address] Care Team Providers Name Role Phone No Primary/Referring, Phy Primary Care Provider Unavailable Encounter Details Date Type Department Care Team Description 10/20/2018 Office Visit Mily Foster C O Monocular exotropia OS, s/p strabismus s urgery x 2 (Primary Dx); Ophthalmology [address] DVD (dissociated vertical deviation); [address] 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 We have added some horizontal prism to your specs to help you with control. Continue glasses multimedia engineer. Return to clinic in as needed with me. Return with Dr. Marcus as instructed. If anything changes, please do not hesitate to give us a call back at : BL: [phone], option 4. Thank you for choosing [facility] and allowing us to be a part of your eye care. SHERLY Lawrence documented in this encounter Progress Notes Mily Larson [place] - 10/20/2018 2:00 PM CDT No Primary/Referring No address on file Patient accompanied by: mother Sent by: Dr. Marcus Last dilated: 09/23/2018 Past eye treatment: None, Current glasses, Previous patching of OD and Strabismus surgery: x2 Past Surgical History: Procedure Laterality Date ??? STRABISMUS SURG; 2 HORIZONTAL MUSC Bilateral 05/09/2008 Medial rectus advancement OU ??? STRABISMUS SURG; 2 HORIZONTAL MUSC Bilateral 10/05/2007 A-pattern ET w/BSOOA. 4.5mm RMRc w/ 1/2 muscle w/ superior transposition. 4.0 mm LMRc 1/4 muscle superior transposition. Fly Moran is a 23 y.o. male who presents today for re-evaluation of Strabismus and glasses - w/prism. Pt here for re-evaluation of computer glasses and ground in prism. Pt sits close to computer without compter glasses. Current distance and computer glasses are 2 yrs old. Pt has not updated distance glasses yet. Patient/parents denies redness, mattering, tearing, photophobia, and pain. Sx: as above FH: denies cataract, glc, strab, and blindness. Social: planning to move to cities and live on own. Currently living at home with parents. Review of Systems CONSTITUTIONAL: (+Hodgkins Disease), ENT: (-) , PULMONARY: (-), CARDIOVASCULAR: (-), GASTROINTESTINAL: (-), GENITOURINARY: (+neurogenic bladder), MUSCULOSKELETAL: (+), SKIN: (-), NEUROLOGIC: (+Spina Bifida w/ hydrocephalus), HEME: (-) Exam: See ophthalmic forms. Imp/Plan: Encounter Diagnoses Name Primary? Monocular exotropia OS, s/p strabismus surgery x 2 Within monofixation range. Prism to help keep eyes aligned. Denies diplopia. Observe for now. Poor stereo - 0/0/2 ??? Nystagmus Observe for now. Watch for AHP. Magnifier glass and or other visual aids as needed. ??? 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 Both distance and computer glasses updated today. Pt liked an additional 6pd prism CHRIS to help with control / jumping vision. Will not touch vertical prism as it doesn't seem to bother pt - ground in to both specs. RTC with me prn. Follow up with Dr. Marcus as instructed. 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
--- OUTSIDE RECORDS SUMMARY | 2022-05-27 10:17 | XMS_ITS | Encounter Summary ---
:1995 Author Organization [employer] Address [address] [place] [address] Care Team Providers Name Role Phone No Primary/Referring, Phy Primary Care Provider Unavailable Reason for Visit Reason Comments Questions cath supplies Encounter Details Date Type Department Care Team Description 05/24/2019 Telephone Specialty Center [address] Raj Castro, Questions (cath Urology Clinic MD supplies) [address] [facility] 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 Also faxed order to his case workerCraig at [phone] as requested. No further questions at this time. MARC Westbrook 05/24/2019, 12:12 PM ER INSPECTOR Hafsa Larson - 05/24/2019 11:24 AM CST Patient called states he's looking to get some new catheters. Patient states he needs to have the Rxsent to case manager. Is requesting a call back on who he should reach out in regards to the new caths. Please advise. Hafsa Larson 05/24/2019, 11:25 AM ER INSPECTOR documented in this encounter Plan of Treatment Upcoming Encounters Date Type Specialty Care Team Description 06/12/2022 Appointment Urology Raj Castro MD [address] [place], [place] [address] (Wo rk) 09/28/2022 Telemedicine Psychiatry Humera Bush MD [address] [place], [place] [address] (Wo rk) documented as of this encounter Visit Diagnoses Not on filedocumented in this encounter Care Teams Director Of Market Research Relationship Specialty Start Date End Date No Primary/Referring, Phy PCP - General 09/23/18 documented as of this encounter
--- OUTSIDE RECORDS SUMMARY | 2022-05-27 10:17 | XMS_ITS | Encounter Summary ---
:1995 Author Organization [facility] Address [address] [place] [address] Care Team Providers Name Role Phone No Primary/Referring, Phy Primary Care Provider Unavailable Reason for Referral Consult/Transfer Care (Routine) - Closed Specialty Diagnoses / Procedures Referred By Contact Refer red To Contact Diagnoses History of snoring Rob Tillman MD [address] [place] [address] Referral ID Status Reason Start Date Expiration Date Visits Requ ested Visits Authorized [id number] Closed 04/03/2019 07/02/2020 1 1 Scheduling Instructions Your provider has recommended an appoint ment with [facility]. This is not a sleep study order and must first be re viewed by a sleep specialist to determine the next steps. The review process looks at multiple factors including your insurance requirements, personal health history, a nd [place] [employer] guidelines. This referral will be reviewed within 1 business day and sent to scheduling for one of the following appointments: - Consultation/Office Visit with a Sleep Medicine Specialist - Consultation/Office Visit with an Inso mnia Specialist - In-Center Overnight Sleep Study - Portable/Home Sleep Test If you do not hear from our scheduling s taff within the next 7 days, please contact us at [phone]. Procedure/Equipment (Routine) - Closed Specialty Diagnoses / Procedures Referred By Contact Refer red To Contact Diagnoses Spina bifida without hydrocephalus, unspecified spinal region (HRC) Gait abnormality Rob Tillman MD Procedures Wheelchair Cushion [address] [place] [address] Referral ID Status Reason Start Date Expiration Date Visits Requ ested Visits Authorized [id number] Closed 04/03/2019 07/02/2020 1 1 Reason for Visit Reason Comments Revisit Spina bifida Encounter Details Date Type Department Care Team Description 04/03/2019 Office Visit Rob Bagley Spina bifi da without hydrocephalus, unspecified spinal region (HRC) (Primary Dx); [facility] MD Sophie Gait abnormality; Physical Medicine [address] [facility] Neurogenic bowel; [address] [facility]. 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 Revisit Spina bifida History of Present Illness: I had the pleasure of seeing Mr. Fly Moran on 03/28/2018 in the physical medicine and rehabilitation outpatient clinic in follow-up with regards to spina bifida. ?? Fly Moran is a 22 y.o. old male with a hx of spina bifida . Pt was referred to OP SCI clinic from Hope Cook at the [facility] for general SCI care and management. Fly [...] is insensate in theBLE distally. Interval Hx: Since last being seen, patient is been doing well. Patient has reported poor removed since the weather has changed to cold and long to me. Patient continues to see a mental health providers in the community. Mom and patient both reported week when his parents were out of town and during the time he had an uptick in his anxiety and depression. Other issues discussed were: Neurogenic Bowel: normal, full sensation, no accidents Neurogenic Bladder: voids with high PVR's, following with urology as needed Spasticity: none MSK Pain: resolved neck stiffness and resolve mild back pain Neuropathic pain: none at this time Skin: skin lesions from picking, + acne-stable Sexuality: not discussed Mood: +depression/anxiety, sees MH in the community, poor mood with weather change, continues to follow mental health providers in the community ?? DME/Therapies/Function: Therapies: not in any formal therapies, working on HEP Equipment: MWC, Innov[employer] crutches ADL's: independent Past Medical History: Spina bifida astma Myelomeningocele Depression Anxiety ADHD Hodgkin's Disease ? Family History: Non-contributory ?? Social history: He is currently in college ([employer]?) studying IT. The patient lives with his parents. He reports thathe has never smoked. He has never used smokeless tobacco. Medications: Current Outpatient Medications Medication Sig Note Dispense Refill ??? acyclovir (ZOVIRAX) 400 MG tablet Take 1 Tablet by mouth. ??? ARIPiprazole (ABILIFY) 2 MG tablet Take 2 mg by mouth daily. ??? Carnitine 250 MG 500 mg Codeine daily. ??? cetirizine (ZYRTEC) 10 MG tablet Take 1 Tablet by mouth. 06/30/2018: PRN ??? cholecalciferol (VITAMIN D3) 1000 units tablet Take 5,000 Units by mouth daily. ??? clomiPRAMINE (ANAFRANIL) 25 MG capsule Take 25 mg by mouth every evening. ??? DULoxetine (CYMBALTA) 30 MG capsule Take 1 Capsule by mouth. ??? Lisdexamfetamine (VYVANSE) 70 MG capsule Take 70 mg by mouth daily. ??? Melatonin (MELATONIN) 1 MG Take 1 Tablet by mouth. 06/30/2018: Patient not taking ??? Methylphenidate HCl (RITALIN OR) Take 2 Tablets by mouth daily. ??? Multiple Vitamins-Minerals (CENTRUM ADULTS OR) daily. ??? WELLBUTRIN XL 300 MG 24 hour release tablet No current facility-administered medications for this visit. Allergies: Allergies Allergen Reactions ??? Latex Other, see comments Precaution ??? Pollen Extract Breathing Difficulty Nasal congestion ??? Adhesive Rash ? ? Molds & Smuts Other, see comments Edgar mold- Respiratory Distress ??? Other Swelling Spider Venom: Severe local swelling Physical Exam: Vitals: 04/03/19 1544 BP: 114/72 Pulse: 98 General: NAD, pleasant, in C Mental status: displays appropriate affect Head: normocephalic and atraumatic Eyes: EOMI, normal conjuctiva Respiratory: normal WOB, no cough on exam Cardiovascular: normal heart rate Extremities: no obvious swelling in any of the four extremities, B/l AFO in place Skin: intact where visible Posture: +scoliosis Gait: NT, transfers independently from surface to surface Range of motion: full functional range of motion in all joints tested Sensation: insensate distal BLE Reflexes: 2 + throughout Strength: 5/5 in all muscles tested except distal LE, +AFO b/l Tone: no spasticity or atrophy noted Cognition: superficially intact Labs: Hemoglobin (g/dl) Date Value 04/21/2018 15.9 WBC (k/ul) Date Value 04/21/2018 5.1 BUN (mg/dl) Date Value 04/21/2018 14 Sodium (mmol/L) Date Value 04/21/2018 140 Potassium (mmol/L) Date Value 04/21/2018 3.5 Chloride (mmol/L) Date Value 04/21/2018 102 Glucose (mg/dl) Date Value 04/21/2018 82 Creatinine (mg/dl) Date Value 04/21/2018 0.93 GFR, Estimated (ml/min/1.73m2) Date Value 04/21/2018 >60 GFR, Est., If Black (ml/min/1.73m2) Date Value 04/21/2018 >60 Calcium (mg/dl) Date Value 04/21/2018 9.8 Anion Gap (calc.) (mmol/L) Date Value 04/21/2018 8 No results found for: CRP No results found for: ESR Alkaline Phosphatase (U/L) Date Value 04/21/2018 79 Impression: 22 y.o. old male [...] none per Physical Medicine and Rehabilitation 5. New J 2 cushion ordered 6. Continue seeing MH in the community for hx of depression and anxiety 7. Sleep Services referral placed for assessment for sleep apnea 8. Follow as indicated: 1. NSGY 2. Oncology 3. Urology 4. Ophthalmology 9. Follow up: 6 months I spent a total of 40 minutes with the patient with > 50% of the time spent in education, counseling, and coordination of care. Rob Tillman MD 04/03/2019, 3:59 PM Physical Medicine and Rehabilitation documented in this encounter Plan of Treatment Upcoming Encounters Date Type Specialty Care Team Description 06/12/2022 Appointment Urology Raj Castro MD [address] [facility] [place] [place] [address] (Jeannie osei) 09/28/2022 Telemedicine Psychiatry Humera Bush MD [address] [place], [place] [address] (Jeannie osei) Scheduled Referrals Name Type Priority Associated Diagnoses Order [facility] Sleep Services Referral Routine History of snoring Ordered : 04/03/2019 documented as of this encounter Visit Diagnoses Diagnosis Spina bifida without hydrocephalus, unsp ecified spinal region (HRC) - Primary Gait abnormality Abnormality of gait Neurogenic bowel Neurogenic bladder Neurogenic bladder, NOS History of snoring documented in this encounter Care Teams Game Farm Helper Relationship Specialty Start Date End Date No Primary/Referring, Phy PCP - General 09/23/18 documented as of this encounter
--- OUTSIDE RECORDS SUMMARY | 2022-05-27 10:17 | XMS_ITS | Encounter Summary ---
:1995 Author Organization [facility] Address [address] [place] [address] Care Team Providers Name Role Phone No Primary/Referring, Phy Primary Care Provider Unavailable Encounter Details Date Type Department Care Team Description 04/20/2019 Office Visit [facility] Wyatt Oneil W, Hodgkin lymphoma, [address] [place] [address] unspecified, lymph [address]. 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 1. 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 Mild neutropenia persisting on lab testing [place] Jun 2017 ?? TREATMENT 4 months of ABVe-PC chemotherapy followed by 2100 cGy radiation to chest and mediastinum completed June 2013 ?? PLAN: ?? Yearly lab testing: CBC BMP LFT TSH due today echocardiogram every 2 years next due August 2020 Return 1 year Wyatt Oneil MD Patient is schedule as md instructed. Joslyn documented in this encounter Progress Notes Wyatt Oneil MD - 04/20/2019 8:30 AM CDT This office note has been dictated. [id number] Wyatt Oneil MD Wyatt Oneil MD - 04/20/2019 12:00 AM CDT LUCÍA MARTINEZ CSN: [id number] CLINIC NOTE DATE OF SERVICE: 04/20/2019 : 1995 DIAGNOSES: 1. 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 2. Mild neutropenic persistent lab testing at [facility] in June 2017. TREATMENT: Four months of the ABVe-PC chemotherapy followed by 2100 cGy of radiation to the chest and mediastinum, completed in June 2013. SUBJECTIVE: The patient and his mother return for followup of history of stage II nodular sclerosing Hodgkin disease. He is a 23-year-old male living at home with his parents in [place] and attending [employer] for [employer]. He is now over 6 years status post completion of therapy for Hodgkin lymphoma and continues to feel well. He denies headaches, fevers, chills, cough, or chest pain. His other major comorbidity includes spina bifida with associated scoliosis and pelvic obliquity. He has had multiple prior surgeries in the past including a T8 through L4 anterior fusion. He is here today for followup and for the most part feels well. He had some issues with neurogenic bladder earlier this year, which has been managed with increased frequency of self cathing. His anxiety and depression are relatively well managed. He has had no evidence of recurrence of his Hodgkin disease. He had a surveillance echocardiogram and pulmonary function testing in August of this year, which were normal. He is due for labs. PHYSICAL EXAMINATION: HEENT: There is no scleral icterus. No oral lesions. No cervical adenopathy. Lungs: Clear. Heart: Regular rhythm. Abdomen: Soft. Extremities: There is no lower extremity edema. ASSESSMENT: Prior history of Hodgkin disease treated with combined chemoradiotherapy with no clinical evidence of recurrence. PLAN: We will obtain routine labs today. Return to clinic in 1 year. He will be due for an echocardiogram August 2020. WYATT ONEIL MD [facility]/JALIL /[id number] documented in this encounter Plan of Treatment Upcoming Encounters Date Type Specialty Care Team Description 06/12/2022 Appointment Urology Raj Castro MD [address] [place], [place] [address] (Wo sea) 09/28/2022 Telemedicine Psychiatry Humera Bush MD [address] [place], [place] [address] (Jeannie osei) documented as of this encounter Results TSH with Free T4 (if TSH Abnormal) (04/20/2020 9:39 AM CDT) athologist Signature TSH, Reflex 3.00 0.30 - 4.50 04/20/2020 [facility] uIU/mL 5:14 PM CDT LABORATORY Specimen Anatomical Collection Method / Collection Time Recei rufus Time (Source) Location / Volume Laterality Blood Venipuncture / 04/20/2020 9:39 04/20/2020 9:39 Unknown AM CDT AM CDT Narrative [facility] - 04/20/2020 5:14 P M CDT Lab will automatically reflex to Free T4 when TSH results are <0.30 uIU/mL or >4.50 mIU/mL. Wyatt Oneil MD LAB_1 Performing Organization Address City/State/ZIP Code Phon e Number [facility] [address] [place] [address] (ABNORMAL) Oncology Complete Metabolic Panel ([facility] ONLY) (04/20/2019 9:04 AM CDT) athologist Signature Sodium, WB 139 136 - 145 04/20/2019 [facility] mmol/L 10:10 AM CDT Potassium, Whole 3.9 3.5 - 5.1 04/20/2019 [facility] Blood mmol/L 10:10 AM CDT CO2 31 (H) 20 - 29 04/20/2019 [facility] mmol/L 10:10 AM CDT Chloride, Whole 102 95 - 106 04/20/2019 [facility] Blood mmol/L 10:10 AM CDT Glucose, Whole 73 70 - 180 04/20/2019 [facility] Blood mg/dL 10:10 AM CDT Calcium 9.9 8.4 - 10.4 04/20/2019 [facility] mg/dL 10:10 AM CDT BUN Whole Blood 18 7 - 20 04/20/2019 [facility] mg/dL 10:10 AM CDT Creatinine, 0.9 0.7 - 1.2 04/20/2019 [facility] Whole Blood mg/dL 10:10 AM CDT Alkaline 68 40 - 150 04/20/2019 [facility] Phosphatase U/L 10:10 AM CDT ALT (SGPT) 73 (H) 0 - 55 U/L 04/20/2019 [facility] 10:10 AM CDT AST (SGOT) 37 10 - 40 04/20/2019 [facility] U/L 10:10 AM CDT Bilirubin, Total 0.8 0.2 - 1.2 04/20/2019 [facility] mg/dL 10:10 AM CDT Albumin 4.0 3.5 - 5.0 04/20/2019 [facility] g/dL 10:10 AM CDT Protein, Total 7.7 6.4 - 8.3 04/20/2019 [facility] g/dL 10:10 AM CDT Specimen Anatomical Collection Method / Collection Time Recei rufus Time (Source) Location / Volume Laterality Blood Venipuncture / 04/20/2019 9:04 04/20/2019 9:04 Unknown AM CDT AM CDT Wyatt Oneil MD LAB_1 Performing Organization Address City/[facility]/ZIP Code Phon e Number [facility] [address] [place] [address] SOUTH TSH with Free T4 (if TSH Abnormal) (04/20/2019 9:04 AM CDT) P athologist Signature TSH, Reflex 1.91 0.30 - 04/20/2019 [facility] 4.50 12:07 PM CDT [facility] uIU/mL Specimen Anatomical Collection Method / Collection Time Recei rufus Time (Source) Location / Volume Laterality Blood Venipuncture / 04/20/2019 9:04 04/20/2019 9:04 Unknown AM CDT AM CDT [facility] - 04/20/2019 12:07 PM CDT Lab will automatically reflex to Free T4 when TSH results are <0.30 uIU/mL or >4.50 mIU/mL. Wyatt Oneil MD LAB_1 Performing Organization Address City/State/ZIP Code Phon e Number [facility] [address] [phone] (ABNORMAL) Liver Panel(Hepatic Function Panel) (04/20/2019 9:04 AM CDT) Patholo gist Method Time Signature Alkaline 71 40 - 150 04/20/2019 [facility] Phosphatase U/L 11:49 AM CDT [facility] Bilirubin, 0.6 0.2 - 1.2 04/20/2019 [facility] Total mg/dL 11:49 AM CDT [facility] Bilirubin, 0.2 0.0 - 0.5 04/20/2019 [facility] Direct mg/dL 11:49 AM CDT [facility] AST (SGOT) 30 10 - 40 04/20/2019 [facility] U/L 11:49 AM CDT [facility] ALT (SGPT) 71 (H) 0 - 55 04/20/2019 [facility]/L 11:49 AM CDT [facility] Protein, Total 7.8 6.4 - 8.3 04/20/2019 [facility] g/dL 11:49 AM CDT [facility] Albumin 4.4 3.5 - 5.0 04/20/2019 [facility] g/dL 11:49 AM CDT [facility] Specimen Anatomical Collection Method / Collection Time Recei rufus Time (Source) Location / Volume Laterality Blood Venipuncture / 04/20/2019 9:04 04/20/2019 9:04 Unknown AM CDT AM CDT Wyatt Oneil MD LAB_1 Performing Organization Address City/State/[facility] Code Phon e Number [facility] [address] [address] documented in this encounter Visit Diagnoses Diagnosis Hodgkin lymphoma, unspecified, lymph nod es of axilla and upper limb (HRC) - Primary documented in this encounter Care Teams Cardiac Exercise Specialist Relationship Specialty Start Date End Date No Primary/Referring, Phy PCP - General 09/23/18 documented as of this encounter
--- OUTSIDE RECORDS SUMMARY | 2022-05-27 10:17 | XMS_ITS | Encounter Summary ---
:1995 Author Organization [facility] Address [address], [place] [address] Care Team Providers Name Role Phone Rob Tillman MD Primary Care Provider Encounter Details Date Type Department Care Team Description 08/15/2019 Correspondence [facility] Sophie Physical Medicine [address] [facility] [address] [facility] 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
--- OUTSIDE RECORDS SUMMARY | 2022-05-27 10:17 | XMS_ITS | Encounter Summary ---
:1995 Author Organization [email or web address] Address [address] [place] [address] Care Team Providers Name Role Phone No Primary/Referring, Phy Primary Care Provider Unavailable Reason for Referral Consult/Transfer Care (Routine) - Closed Specialty Diagnoses / Procedures Referred By Contact Refer red To Contact Diagnoses LAUREL (obstructive sleep apnea) Ruth Ann Khan PA-C [address] [place] [id number] Referral ID Status Reason Start Date Expiration Date Visits Requ ested Visits Authorized [id number] Closed 07/05/2019 10/03/2020 1 1 Scheduling Instructions DENTAL DEVICE FOR SLEEP APNEA: Your phys ician has ordered that you receive a dental orthotic for sleep apnea. Dental devices are created by dental providers, however are usually covered under your medical insur ance. In most cases, your medical insurance will require prior authorization for the dental device. Remember, prior authorization does not mean you are covered 100% - you may be responsible for a co-payment, co-insurance and/or deductible. INSURED BY [employer]: If you are in sured by [email or web address] and plan to use a HP or HP Partner Provider of Dental Orthoti cs, we will request prior authorization for you. You will be notified by [facility] ers Insurance of their decision. If approved and if you plan to use a HP Provider of Dental Orthotics, the dental office will contact you to schedule an appointment. If you have not been called, please call one of these clinics where this service is provided [facility] . [facility] (scheduling at [facility] [place]) [phone]. If you choose to use a non-HP or HP Part ner provider, you will be responsible for working with your dentist and insurance company to obtain prior authorization. NON-[employer] INSURANCE: You will b e responsible for working with your dentist and insurance company to obtain prior au thorization. Today you will be provided with the order for the dental orthotic. Addit ional information will be provided upon request. It may take up to 4 weeks for y our insurance company to make a determination on prior authorization. OMER SUPPORT CONSULTANT Reason for Visit Reason Comments Follow Up, Test Results Encounter Details Date Type Department Care Team Description 06/30/2019 Telephone [facility] Ruth Ann Khan, Follow Up, Test [facility] [address] 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 Teresa Gomez RN 07/05/2019, 12:43 PM OMER SUPPORT CONSULTANT Ruth Ann Khan PA-C - 07/05/2019 12:28 PM CST Order placed. Please call and tell the patient to call [phone] to schedule his consult visit. Thanks OMER SUPPORT CONSULTANT Teresa Gomez RN - 07/04/2019 11:10 AM CST Spoke to pt, he verbalizes understanding. He would like to proceed with a referral for a MAD. Ruth Ann, Could you please place that referral order? Thank you! Teresa Gomez RN 07/04/2019, 11:15 AM OMER SUPPORT CONSULTANT Ruth Ann Khan PA-C - 06/30/2019 10:29 AM CST His HST revealed very mild LAUREL, so this would qualify him to use the MAD if he wants to. Team, please call and tell him this and if he wants to try the MAD, I can order it. Let me know what he wants. Thanks, OMER SUPPORT CONSULTANT documented in this encounter Plan of Treatment Upcoming Encounters Date Type Specialty Care Team Description 06/12/2022 Appointment Urology Raj Castro MD [address] [place], [place] [address] (Wo rk) 09/28/2022 Telemedicine Psychiatry Humera Bush MD [address] [place], [place] [address] (Wo rk) Scheduled Referrals Name Type Priority Associated Diagnoses Order S chedule Dental Sleep Apnea Referral Routine LAUREL (obstructive sleep Ordered: 07/05/2019 Consult apnea) documented as of this encounter Visit Diagnoses Diagnosis LAUREL (obstructive sleep apnea) - Primary Obstructive sleep apnea (adult) (pediatr ic) documented in this encounter Care Teams Lead Fabricator Relationship Specialty Start Date End Date No Primary/Referring, Phy PCP - General 09/23/18 documented as of this encounter
--- OUTSIDE RECORDS SUMMARY | 2022-05-27 10:17 | XMS_ITS | Encounter Summary ---
:1995 Author Organization [facility] Address [address] [place] [address] Care Team Providers Name Role Phone Rob Tillman MD Primary Care Provider Reason for Referral Procedure/Equipment (Routine) - Incomplete Specialty Diagnoses / Procedures Referred By Contact Refer red To Contact Diagnoses Spina bifida without hydrocephalus, unspecified spinal region (HRC) Rob Tillman MD Procedures CT Head WO IV Cont [address] [place] [address] Referral ID Status Reason Start Date Expiration Date Visits V isits Requested Authorized [id number] Incomplete 07/28/2019 10/26/2020 1 1 URCE CONSERVATION MANAGER Consult/Transfer Care (Routine) - Closed Specialty Diagnoses / Procedures Referred By Contact Refer red To Contact Diagnoses Spina bifida without hydrocephalus, unspecified spinal region (HRC) Rob Tillman MD [address] [place] [address] Referral ID Status Reason Start Date Expiration Date Visits Requ ested Visits Authorized [id number] Closed 07/28/2019 10/26/2020 1 1 Scheduling Instructions Your provider has recommended an appoint ment with [facility]. You may call [phone], option 2 for ques tions or to schedule your appointment. If you prefer, a attendance secretary will contact you [facility] the next 3 business days to assist you in setting up this appointment. There are many treatment options for diego k pain. Each has benefits and risks. We want to make sure you understand all the opti ons available to you. That way you can make an informed decision about your care. Yo u will see one of our medical spine experts to ensure you get the best information a nd care for your specific condition. After your visit with the medical spine expert , you may decide whether you want to pursue other treatment options or see a spine s urgeon. Our medical spine experts will: - Confirm your diagnosis. - Help you understand what options are a vailable to you - Help you decide on the best treatment option for you. - Help you care for your back. The supplier quality specialist will help create a treatment plan with you that you and your primary care doctor can work on together to relieve your pain. URCE CONSERVATION MANAGER Encounter Details Date Type Department Care Team Description 07/26/2019 [facility] Rob Correa MD Center Physical [facility]ine [address] [place] [address] [place] [address] [phone] Social History Tobacco Use Types Packs/Day Years Used Date Smoking Tobacco: Never Smokeless Tobacco: Never Alcohol Use Standard Drinks/Week Comments Yes 0 (1 standard drink = 0.6 oz pure alcoho l) occasional Sex Assigned at Date Recorded Male 07/12/2021 3:57 PM RESOURCE CONSERVATION MANAGER documented as of this encounter Nursing Notes Ankita Rubio - 08/03/2019 8:[address] has been scheduled for 08/18/19 at 11:00AM at [facility]. Ankita Rubio 08/03/2019, 8:58 AM URCE CONSERVATION MANAGER Ankita Rubio - 08/01/2019 10:33 AM CST Maintenance Aide spoke to pt to help schedule appt with Dr. Hansen at next available on 08/22/19 at 2:00PM. Ptwas advised that he needs to complete CT head prior. Pt requesting for television writer to contact his mother to schedule the CT. LM on Mom's phone to call Radiology scheduling line for CT. Phone number left on message. Ankita Rubio 08/01/2019, 10:55 AM URCE CONSERVATION MANAGER Beulah Morton, MARC - 07/28/2019 4:[address] Tillman ordered a head CT for further evaluation of the ventricles, ok to schedule once head CT completed, will schedule with Dr. Hansen's team.Beulah Morton, MARC 07/28/2019, 4:42 PM URCE CONSERVATION MANAGER Kasandra Markham - 07/28/2019 3:09 PM CST Mom called back to follow up on request. Informed her Dr. Tillman placed order for neurosurgery consult and that I would forward message to neurosurgery team to review/advise on scheduling. Mom states pt is experiencing increased fatigue, anxiety, depression, and frequent episodes of memory loss/ recall. Please advise on scheduling. Thank yoU! URCE CONSERVATION MANAGER Rob Tillman MD - 07/28/2019 1:43 PM CST If patient is having new symptoms, then patient should be seen by Neurosurgery 1st in order to ensure a timely triage of his symptoms. Neurosurgery referral placed. CT head ordered. Rob Tillman MD 07/28/2019, 1:43 PM URCE CONSERVATION MANAGER Diana Ruby - 07/26/2019 11:22 AM CST Patient and his mother called stating his psychiatrist Dr. Cavanaugh suggested due to his symptoms he should be seen again In neurosurgery to evaluate his RADIO STATION MANAGER shunt. But they need another referral. Also wondering if Primo would like to see him again first or if we can just put in the order. Please call patients Mother at [phone]. Diana Ruby 07/26/2019, 11:27 AM URCE CONSERVATION MANAGER documented in this encounter Plan of Treatment Upcoming Encounters Date Type Specialty Care Team Description 06/12/2022 Appointment Urology Raj Castro MD [address] [place], [place] [address] (Wo rk) 09/28/2022 Telemedicine Psychiatry Humera Bush MD [address] [place], [place] [address] (Wo rk) Scheduled Referrals Name Type Priority Associated Diagnoses Order S chedule Spine-Surgical Referral Routine Spina bifida without Order ed: 07/28/2019 Consult-Adults hydrocephalus, unspecified spinal region (HRC) documented as of this encounter Results CT Head WO IV Cont (08/18/2019 12:06 PM RESOURCE CONSERVATION MANAGER) Anatomical Region Laterality Modality Head Computed Tomography Specimen (Source) Anatomical Collection Method Collection Time Re ceived Time Location / / Volume Laterality 08/18/2019 12:06 PM RESOURCE CONSERVATION MANAGER Narrative 08/18/2019 3:40 PM RESOURCE CONSERVATION MANAGER EXAM: CT HEAD WO IV CONT LOCATION: [facility] DATE/TIME: 08/18/2019 12:06 PM [...] system. 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 Procedure Note Luis Armando Ibarra MD - 08/18/2019Forma tting of this note [...] unsp ecified spinal region (HRC) - Primary Spina bifida without hydrocephalus, unsp ecified spinal region (HRC) documented in this encounter Care Teams Compressor Repairer Relationship Specialty Start Date End Date Rob Tillman MD PCP - General Physical Medicine and 08/01/[address] [place] [id number] documented as of this encounter
--- OUTSIDE RECORDS SUMMARY | 2022-05-27 10:17 | XMS_ITS | Encounter Summary ---
:1995 Author Organization [employer] Address [address] [place] [address] Care Team Providers Name Role Phone No Primary/Referring, Phy Primary Care Provider Unavailable Reason for Referral Consult/Transfer Care (Routine) - Closed Specialty Diagnoses / Procedures Referred By Contact Refer red To Contact Diagnoses Autism (HRC) Attention deficit disorder, unspecified hyperactivity presence Depression, unspecified depression type Anxiety disorder, unspecified type (HRC) Hanane Padilla MD [address] [place], [place] [address] Referral ID Status Reason Start Date Expiration Date Visits Requ ested Visits Authorized [id number] Closed 06/29/2019 09/27/2020 1 1 Scheduling Instructions Your provider has recommended an appoint ment with Behavioral Health. You may call [phone] to schedule your appointmen t. This recommended service/s may not be covered by your health plan (health insu aziza). To find out your specific benefit coverage, please call the number on your insurance card.?? Please note that in order to maintain access for all patients, [facility] does have a late cancellation policy.?? In order to avoid being restri cted from scheduling future appointments in Behavioral Health you will need to cance l at least 48 hours in advance. We request you that you arrive 30 minutes before yo ur first appointment to complete paperwork. EGE SCOUTING COORDINATOR Reason for Visit Reason Comments Welcome To Medicare Encounter Details Date Type Department Care Team Description 06/29/2019 Office Visit [facility] Hanane Padilla MD Welcome to Medicare preventive visit (Pr imary Dx); Practice [address] Autism; [address] [place], [place] Atten tion deficit disorder, unspecified hyperactivity presence; [place]. [address] Depression, unspecified depression type; [place], [place] [phone] Anxiety diso rder, unspecified type; [address] (Work) Encounter for immunization; [phone] Spina bif antonio, unspecified hydrocephalus presence, unspecified spinal region (HRC) Social History Tobacco Use Types Packs/Day Years Used Date Smoking Tobacco: Never Smokeless Tobacco: Never Alcohol Use Standard Drinks/Week Comments Yes 0 (1 standard drink = 0.6 oz pure alcoho l) occasional Sex Assigned at Date Recorded Male 07/12/2021 3:57 PM COLLEGE SCOUTING COORDINATOR documented as of this encounter Last Filed Vital Signs Vital Sign Reading Time Taken Comments Blood Pressure 111/74 06/29/2019 2:39 PM COLLEGE SCOUTING COORDINATOR Pulse 99 06/29/2019 2:39 PM COLLEGE SCOUTING COORDINATOR Temperature 36.9 ??C (98.4 ??F) 06/29/2019 2:39 PM COLLEGE SCOUTING COORDINATOR Respiratory Rate 20 06/29/2019 2:39 PM COLLEGE SCOUTING COORDINATOR Oxygen Saturation - - Inhaled Oxygen Concentration - - Weight 62.6 kg (138 lb) 06/29/2019 2:39 PM COLLEGE SCOUTING COORDINATOR Height 154.9 cm (5' 1) 06/29/2019 2:39 PM COLLEGE SCOUTING COORDINATOR Body Mass Index 26.07 06/29/2019 2:39 PM COLLEGE SCOUTING COORDINATOR documented in this encounter Patient Instructions Patient InstructionsPeSara mayfield, NURIA - 06/29/2019 2:40 PM CST Annual Wellness Visit Summary Your care team is recommending the following tests, procedures or services. Some of these recommendations may not be fully covered by Medicare or your insurance. If you have questions, check with your insurance to determine coverage before completing these services. Health Maintenance Due Health Maintenance Due Topic Date Due ??? Medicare Welcome Visit 1995 ??? HIV Screening (Preventive Services) 2012 ??? DTaP/Tdap/Td (1 - Tdap) 2015 ??? Influenza (1) 02/26/2019 If your Medicare Welcome or Annual Wellness Visit is showing you are due in the above list, this will be updated after this visit. You had this completed today and are not due for another year. EGE SCOUTING COORDINATOR documented in this encounter Progress Notes Hanane Padilla MD - 06/29/2019 2:40 PM CST Medicare Welcome Subjective/Historical: Fly Moran is a 23 y.o. old male Chief Complaint Patient presents with ??? Welcome To Medicare Current Concerns: Referral to Behavioral Health/psychiatrist for his autism, ADD depression and anxiety. He has been diagnosed with depression and anxiety since childhood. He says he had symptoms since he was age 15. He was diagnosed with autism at age 20. He is high functioning autistic. He was seeing psychiatrist Bianca martinez at [facility] in the past. He is currently on Abilify, clomipramine, Ritalin and pro p.r.n.. 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 History of a spina bifid the, and uses AFO braces, has gait abnormality. Mini-Cog Assessment Word Recall: 3 Clock Draw: 2 Total: 5 Additional Assessments Completed: PHQ-2 was administered today with a total score of: 6 Has a Health Care Directive on file? no. Pertinent Positives from Medicare Wellness Form: MEDICARE ANNUAL WELLNESS CONCERNS 06/29/2019 How many servings of fruits and vegetables do you eat a day? 2 to 4 Do you have difficulty doing any of the following activities? Dressing Driving or using transportation Laundry Do you feel unsteady when walking? Yes If yes, do you use a? Other Do you have rugs (not carpet) in your home? Yes The patient's health maintenance, problem list, past medical history, past surgical history, family history, medication list, allergies, and immunization records have been reviewed and updated in the patient record as necessary. Observed Vitals: BP 111/74 (BP Location: Right Arm, BP Cuff Size: Large) Pulse 99 Temp 98.4 ??F (36.9 ??C) (Oral) Resp 20 Ht 5' 1 (1.549 m) Wt 138 lb (62.6 kg) BMI 26.07 kg/m?? Vision Results: Right eye 20/40, left eye 20/50 Physical Exam: General Appearance: alert, well appearing and in no apparent distress HEENT: lids normal, sclera clear and conjunctiva normal and oropharynx clear, ear canals clear and TMs normal Neck: no lymphadenopathy and no thyromegaly or nodules Heart: regular rate and rhythm and no murmurs, gallops or rubs Lungs: clear to ausculation and no wheezes, rales or rhonchi Abdomen: soft, nondistended, nontender, no palpable masses and no organomegaly Extremities: no edema Skin: no rashes or worrisome lesions Assessment/Plan (Z00.00) Welcome to Medicare preventive visit (primary encounter diagnosis) Plan: Counseling and education provided today includes proper nutrition and health habits, fall prevention, and for those items ordered above. Plan for future preventive services in Patient Instructions. (F84.0) Autism (HRC) Plan: Behavioral Health (F98.8) Attention deficit disorder, unspecified hyperactivity presence Plan: Behavioral Health (F32.9) Depression, unspecified depression type (HRC) Plan: Behavioral Health (F41.9) Anxiety disorder, unspecified type (HRC) Plan: Behavioral Health Spina bifida Continue to see physical medicine rehab provider, using AFO braces (Z23) Encounter for immunization Plan: Influenza IIV4 (Quadrivalent) 0.5mL (03694) Hanane Padilla MD EGE SCOUTING COORDINATOR documented in this encounter Plan of Treatment Upcoming Encounters Date Type Specialty Care Team Description 06/12/2022 Appointment Urology Raj Castro MD [address] [facility] [place], [place] [address] (Wo rk) 09/28/2022 Telemedicine Psychiatry Humera Bush MD [address] [place], [place] [address] (Wo rk) Scheduled Referrals Name Type Priority Associated Diagnoses [facility] Referral Routine Autism Ordered: 06/29/2019 Attention deficit disorder, unspecified hyperactivity presence Depression, unspecified depression type Anxiety disorder, unspecifie d type documented as of this encounter Visit Diagnoses Diagnosis Welcome to Medicare preventive visit - P rimary Autism (HRC) Autistic disorder, current or active sta te Attention deficit disorder, unspecified hyperactivity presence Depression, unspecified depression type Anxiety disorder, unspecified type (HR) Encounter for immunization Need for other specified prophylactic va ccination against single bacterial disease Spina bifida, unspecified hydrocephalus presence, unspecified spinal region (HR) documented in this encounter Care Teams Surveillance Camera Technician Relationship Specialty Start Date End Date No Primary/Referring, Phy PCP - General 09/23/18 documented as of this encounter
--- OUTSIDE RECORDS SUMMARY | 2022-05-27 10:17 | XMS_ITS | Encounter Summary ---
:1995 Author Organization [employer] Address [address] [place] [address] Care Team Providers Name Role Phone Rob Tillman MD Primary Care Provider Reason for Referral Procedure/Equipment (Routine) - Incomplete Specialty Diagnoses / Procedures Referred By Contact Refer red To Contact Diagnoses Scoliosis of thoracic spine, unspecified scoliosis type Nataliia Henry PA-C Procedures CT Thoracic Spine WO IV Cont [address] [place] [address] Referral ID Status Reason Start Date Expiration Date Visits V isits Requested Authorized [id number] Incomplete 08/22/2019 11/20/2020 1 1 CIPAL SYSTEMS ENGINEER Consult/Transfer Care (Routine) - Closed Specialty Diagnoses / Procedures Referred By Contact Refer red To Contact Diagnoses Spina bifida, unspecified hydrocephalus presence, unspecified spinal region (HRC) Hydrocephalus, unspecified type (HRC) Memory loss Matthew Hansen MD [address] [place] [address] Referral ID Status Reason Start Date Expiration Date Visits Requ ested Visits Authorized [id number] Closed 08/22/2019 11/20/2020 1 1 Scheduling Instructions Your provider has recommended an appoint ment with Neuropsychological Testing. You may call [phone] to schedule your appoi ntment. If you prefer, a senior scheduler will contact you within the next 3 business d ays to assist you in setting up this appointment. CIPAL SYSTEMS ENGINEER Procedure/Equipment (Routine) - Incomplete Specialty Diagnoses / Procedures Referred By Contact Refer red To Contact Diagnoses Scoliosis of thoracic spine, unspecified scoliosis type Nataliia Henry PA-C Procedures XR Scoliosis 2 Views [address] [place] [address] Referral ID Status Reason Start Date Expiration Date Visits V isits Requested Authorized [id number] Incomplete 08/22/2019 11/20/2020 1 1 CIPAL SYSTEMS ENGINEER Procedure/Equipment (Routine) - Incomplete Specialty Diagnoses / Procedures Referred By Contact Refer red To Contact Diagnoses Spina bifida, unspecified hydrocephalus presence, unspecified spinal region (HRC) Scoliosis of thoracic spine, unspecified scoliosis type Matthew Hansen MD Procedures XR Scoliosis 2 Views [address] [place] [address] Referral ID Status Reason Start Date Expiration Date Visits V isits Requested Authorized [id number] Incomplete 08/22/2019 11/20/2020 1 1 CIPAL SYSTEMS ENGINEER Reason for Visit Reason Comments Revisit Consult/Transfer Care (Routine) - Closed Specialty Diagnoses / Procedures Referred By Contact Refer red To Contact Diagnoses Spina bifida without hydrocephalus, unspecified spinal region (HRC) Rob Tillman MD [address] [place] [address] Referral ID Status Reason Start Date Expiration Date Visits Requ ested Visits Authorized [id number] Closed 07/28/2019 10/26/2020 1 1 Encounter Details Date Type Department Care Team Description 08/22/2019 Office Visit Tanisha Hansen, Scoliosis of t horacic spine, unspecified scoliosis type (Primary Dx); [facility] Alen Castro Spina bifida, unspecified hydrocephalus presence, unspecified spinal region (HRC); [facility]Ortho [address] [facility] Hydrocephalus, unspecified type (HRC); Spine [place], [place] Memory loss [address] [address] [place] [address] [phone] Social History Tobacco Use Types Packs/Day Years Used Date Smoking Tobacco: Never Smokeless Tobacco: Never Alcohol Use Standard Drinks/Week Comments Yes 0 (1 standard drink = 0.6 oz pure alcoho l) occasional Sex Assigned at Date Recorded Male 07/12/2021 3:57 PM PRINCIPAL SYSTEMS ENGINEER documented as of this encounter Last Filed Vital Signs Vital Sign Reading Time Taken Comments Blood Pressure 117/81 08/22/2019 2:47 PM PRINCIPAL SYSTEMS ENGINEER Pulse 100 08/22/2019 2:47 PM PRINCIPAL SYSTEMS ENGINEER Temperature 36.6 ??C (97.9 ??F) 08/22/2019 2:47 PM PRINCIPAL SYSTEMS ENGINEER Respiratory Rate - - Oxygen Saturation - - Inhaled Oxygen Concentration - - Weight - - Height - - Body Mass Index - - documented in this encounter Patient Instructions Patient InstructionsBeulah Morton RN - 08/22/2019 2:00 PM CST Neurosurgery/Spine Clinic Patient Instructions You should stop for re-do the the scoliosis x-rays today on your way out. will talk to for a possible 3rd ventriculostomy Talk to your primary care provider for a work up for fatigue. You have been referred to Neuropsychology for memory loss. This clinic will call you with a date forth appointment. Call clinic to let the care team know once the Neuropsychology appointment is completed. Follow up with Dr. Matthew Hansen this will be addressed after talks to Dr. Hernandez. If tests were ordered, they will be reviewed at your next office visit. Please allow 10-14 days for forms to be completed and 2-3 business days for medication refills. If you have a change in your insurance plans, please notify the clinic so we can update our records.If we have incorrect insurance information, it can cause delays in clinic appointments and surgeries. Because we are a Level 1 Trauma Center and employ exceptional surgical staff, occasionally our surgeons must respond to hospital emergencies. This may delay the clinic or cause us to reschedule appointments. We make every attempt to limit these disruptions to you and ask for your understanding. Please call the Neurosurgery/Spine Clinic at [phone] with any further questions or concerns. CIPAL SYSTEMS ENGINEER documented in this encounter Progress Notes Nataliia Henry PA-C - 08/22/2019 2:00 PM CST CIPAL SYSTEMS ENGINEER Nataliia Henry PA-C - 08/22/2019 2:00 PM CST Neurosurgery Clinic Follow Up Note Chief Complaint: f/u scoliosis Fly is a pleasant 24 y.o. old male who presents today for follow up visit. 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 The shunt was noted to be disconnected for a long time but ventricle size has been stable.. He was initially evaluated in our clinic on 06/30/2018 for asymptomatic scoliosis measuring 49 degreesat that time. He is here today for routine f/u. He is having upper thoracic muscular pain, not recently worsening. He often will feel like something needs to be pop. He is also having a lot of fatigue and depression, he is working with a psychiatrist for depression but hasn't seen his PCP for any fatigue work up. He denies headaches. He is having more difficulty with memory and recall. This has declined, his mom notes this seemed to start after his cancer treatment in . He is going to school, takes classes. He can only tolerate 2 classes at a time. He has difficulty following multi-step commands, and computation is slower. He has short term memory problems as well, sometimes can't remember the day before. He sees Dr. Tillman in PMR. Physical Examination: BP 117/81 (BP Location: Left Arm, BP Cuff Size: Regular) Pulse 100 Temp 97.9 ??F (36.6 ??C) (Tympanic) Shunt pumps Imaging Studies: Scoliosis XR 12 thoracic rib-bearing and 5 lumbar type vertebrae. S-shaped thoracolumbar curvature, with dominantupper thoracic levocurvature further detailed below. Overall unchanged [...] as seen previously. Redemonstration of a catheter coiledwithin the pelvis, potentially part of a ventriculoperitoneal shunt which appears to be discontinuous in the lower neck. This is unchanged. ?? Measurements: ?? Major Curve: Dominant thoracic levocurvature measuring 45 degrees from T2 through T7, apex at T4.?? Minor Curve(s): Thoracolumbar dextrocurvature measuring 38 degrees from T8 through T4.?? Sagittal Balance: 2 cm positive. Increased truncal shift which is now 3.5 cm to the left.?? Head CT 07/28/19 1. No acute intracranial process. 2. Right parietal approach shunt catheter with stable enlargement of the ventricular system. 3. Chiari II malformation. Assessment 24 yo M with T8-L4 fusion, h/o myelomeningocele. Increased truncal shift but stable overall curves. This is becoming mildly symptomatic with muscle spasms above his fusion. Shunted hydrocephalus with disconnect, Chiari malformation. Stable very significant ventriculomegalybut recent decline in function (memory) Plan We reviewed that his truncal shift appears worsened, and will get a CT to evaluate above the fusion. Regarding the hydrocephalus, he may need retreatment surgically. Dr. Hansen will consult with Dr. Hernandez if he would be a good candidate for 3rd ventriculostomy. He is at very high risk for overdrainage/subdural hematomas with replacing his CRUSHER FEEDER shunt. We will refer him for neuropsych testing. Follow up after this is completed by phone for the plan onshunting. Fly verbalizes understanding and states no further questions at this time. The plan of care was developed in conjunction with Dr Hansen who also saw and evaluated the patient.Patient was instructed to follow up in after or sooner if symptoms change, worsen, or if questions arise. Nataliia Henry PA-C Neurosurgery Total time spent with the patient was 25 minutes, of which over 50% was spent on counseling. CIPAL SYSTEMS ENGINEER Billy Thomas - 08/22/2019 2:00 PM CST [facility] Billy Thomas 08/24/2019, 8:34 AM CIPAL SYSTEMS ENGINEER Billy Thomas - 08/22/2019 2:00 PM CST Reached patient and his mother Dariana to schedule his CT. Patient is now scheduled for 08/28/2019 at 9:00am at [facility]. CIPAL SYSTEMS ENGINEER documented in this encounter Nursing Notes Beulah Morton, RN - 08/22/2019 2:00 PM CST Per plan of care note scoliosis x-ray order placed.Beulah Morton, MARC 08/22/2019, 12:47 PM CIPAL SYSTEMS ENGINEER documented in this encounter Plan of Treatment Upcoming Encounters Date Type Specialty Care Team Description 06/12/2022 Appointment Urology Raj Castro MD [address] [place], [place] [address] (Wo rk) 09/28/2022 Telemedicine Psychiatry Humera Bush MD [address] [place], [place] [address] (Wo rk) Scheduled Referrals Name Type Priority Associated Diagnoses Order S chedule NEUROPSYCHOLOGICAL Referral Routine Spina bifida, Ordered: TESTING/CONSULT-ADULT unspecified 2019 [[id number]] hydrocephalus presence, unspecified spinal region (H RC) Hydrocephalus, unspecified type (HRC) Memory loss documented as of this encounter Results CT Thoracic Spine WO IV Cont (08/28/2019 9:38 AM PRINCIPAL SYSTEMS ENGINEER) Anatomical Region Laterality Modality Spine, T-Spine, Skeletal Computed Tomogr aphy Specimen (Source) Anatomical Collection Method Collection Time Re ceived Time Location / / Volume Laterality 08/28/2019 9:38 AM PRINCIPAL SYSTEMS ENGINEER Narrative 08/28/2019 1:08 PM PRINCIPAL SYSTEMS ENGINEER EXAM: CT THORACIC SPINE WO IV [...] at L5-S1. Nataliia Henry PA-C RAD CT XR Scoliosis 2 Views (08/22/2019 4:27 PM PRINCIPAL SYSTEMS ENGINEER) Anatomical Region Laterality Modality Spine, C-Spine, T-Spine, L-Spine Compute d Radiography Specimen (Source) Anatomical Collection Method Collection Time Re ceived Time Location / / Volume Laterality 08/22/2019 4:27 PM PRINCIPAL SYSTEMS ENGINEER Narrative 08/23/2019 8:54 AM PRINCIPAL SYSTEMS ENGINEER EXAM: XR SCOLIOSIS 2 VIEWS LOCATION: [facility] DATE/TIME: 08/22/2019 4:27 PM INDICATION: [...] original. EXAM: XR SCOLIOSIS 2 VIEWS LOCATION: [facility] DATE/TIME: 08/22/2019 4:27 PM INDICATION: [...] cervical vertebra on the lateral view. Nataliia Henry PA-C RAD GD XR Scoliosis 2 Views (08/22/2019 2:31 PM PRINCIPAL SYSTEMS ENGINEER) Anatomical Region Laterality Modality Spine, C-Spine, T-Spine, L-Spine Compute d Radiography Specimen (Source) Anatomical Collection Method Collection Time Re ceived Time Location / / Volume Laterality 08/22/2019 2:31 PM PRINCIPAL SYSTEMS ENGINEER Narrative 08/23/2019 8:49 AM PRINCIPAL SYSTEMS ENGINEER EXAM: XR SCOLIOSIS 2 VIEWS LOCATION: [facility] DATE/TIME: 08/22/2019 2:31 PM INDICATION: Hx of [...] original. EXAM: XR SCOLIOSIS 2 VIEWS LOCATION: [facility] DATE/TIME: 08/22/2019 2:31 PM INDICATION: Hx of [...] thoracic spine, unspecified scoliosis type - Primary Spina bifida, unspecified hydrocephalus presence, unspecified spinal region (HRC) Hydrocephalus, unspecified type (HRC) Memory loss Spina bifida, unspecified hydrocephalus presence, unspecified spinal region (HRC) Scoliosis of thoracic spine, unspecified scoliosis type Scoliosis of thoracic spine, unspecified scoliosis type Scoliosis of thoracic spine, unspecified scoliosis type Spina bifida of lumbar region with hydro cephalus (HRC) documented in this encounter Care Teams Middle School Tutor Relationship Specialty Start Date End Date Rob Tillman MD PCP - General Physical Medicine and 08/01/19 [address] [facility] [place] [address] documented as of this encounter
--- OUTSIDE RECORDS SUMMARY | 2022-05-27 10:17 | XMS_ITS | Encounter Summary ---
:1995 Author Organization [employer] Address [address], [place] [address] Care Team Providers Name Role Phone Rob Tillman MD Primary Care Provider Encounter Details Date Type Department Care Team Description 08/15/2019 Orders Only External to External, [place] [address] Social History Tobacco Use Types Packs/Day Years Used Date Smoking Tobacco: Never Smokeless Tobacco: Never Alcohol Use Standard Drinks/Week Comments Yes 0 (1 standard drink = 0.6 oz pure alcoho l) occasional Sex Assigned at Date Recorded Male 07/12/2021 3:57 PM TIN PLATER documented as of this encounter Plan of Treatment Upcoming Encounters Date Type Specialty Care Team Description 06/12/2022 Appointment Urology Raj Castro MD [address] [place], [place] [address] (Wo rk) 09/28/2022 Telemedicine Psychiatry Humera Bush MD [address] [place], [place] [address] (Wo rk) documented as of this encounter Procedures Procedure Name Priority Date/Time Associated Diagnosis Comme nts SCANNED ORDER 08/15/2019 12:00 AM Results for this TIN PLATER procedure are i n the results section . documented in this encounter Results SCANNED ORDER (08/15/2019 12:00 AM TIN PLATER) Specimen (Source) Anatomical Location Collection Method / Collectio n Time Received Time / Laterality Volume 08/15/2019 Narrative This result has an attachment that is no t available. Provider External DUMMY/OTHER/AR documented in this encounter Visit Diagnoses Not on filedocumented in this encounter Care Teams Workers' Compensation Claims Examiner Relationship Specialty Start Date End Date Rob Tillman MD PCP - General Physical Medicine and 08/01/[address] [place] [address] [place] [address] documented as of this encounter
--- OUTSIDE RECORDS SUMMARY | 2022-05-27 10:17 | XMS_ITS | Encounter Summary ---
:1995 Author Organization [facility] Address [address] [place] [address] Care Team Providers Name Role Phone Rob Tillman MD Primary Care Provider Reason for Visit Reason Comments Forms [facility] Encounter Details Date Type Department Care Team Description 08/15/[facility] Forms ([facility] Neuroscience Foster MD Sophie Physical Medicine [address] [place] [phone] Social History Tobacco Use Types Packs/Day Years Used Date Smoking Tobacco: Never Smokeless Tobacco: Never Alcohol Use Standard Drinks/Week Comments Yes 0 (1 standard drink = 0.6 oz pure alcoho l) occasional Sex Assigned at Date Recorded Male 07/12/2021 3:57 PM CHEMICAL DEPENDENCY PROFESSIONAL documented as of this encounter Nursing Notes Alejandro Jordan I - 08/16/2019 2:44 PM CST Faxed to [facility] attn to vianney esquivel at [phone] and placed in scanning folder Alejandro Jordan 08/16/2019, 2:44 PM ICAL DEPENDENCY PROFESSIONAL Rob Tillman MD - 08/15/2019 5:23 PM CST Form completed, given to director of clinical services for faxing. Rob Tillman MD 08/15/2019, 5:23 PM ICAL DEPENDENCY PROFESSIONAL Chantelle Blank, RN - 08/15/2019 12:03 PM CST On MD desk Chantelle Blank RN 08/15/2019, 12:03 PM ICAL DEPENDENCY PROFESSIONAL Golden Veloz - 08/15/2019 11:40 AM CST Received Order form from [facility] requesting provider to sign for a cushion replacement. Micheal dawson's right fax folder for review, signature and date. Place in [place] to do basket once completed. Golden Veloz 08/15/2019, 11:41 AM ICAL DEPENDENCY PROFESSIONAL documented in this encounter Plan of Treatment Upcoming Encounters Date Type Specialty Care Team Description 06/12/2022 Appointment Urology Raj Castro MD [address] [place], [place] [address] (Wo rk) 09/28/2022 Telemedicine Psychiatry Humera Bush MD [address] [place], [place] [address] (Wo rk) documented as of this encounter Visit Diagnoses Not on filedocumented in this encounter Care Teams Wafer Batter Mixer Relationship Specialty Start Date End Date Rob Tillman MD PCP - General Physical Medicine and 08/01/19 [address] [facility] [place] [address] documented as of this encounter
--- OUTSIDE RECORDS SUMMARY | 2022-05-27 10:17 | XMS_ITS | Encounter Summary ---
:1995 Author Organization [employer] Address [address] [place] [address] Care Team Providers Name Role Phone Rob Tillman MD Primary Care Provider Reason for Visit Reason Comments Follow Up Asthma Encounter Details Date Type Department Care Team Description 08/16/2019 Telephone Central Outreach Hanane Padilla MD Follow Up Asthma [address] [place] [place] [address] [place] [address] [place], [place] [phone] (Wo rk) [address] [phone] Social History Tobacco Use Types Packs/Day Years Used Date Smoking Tobacco: Never Smokeless Tobacco: Never Alcohol Use Standard Drinks/Week Comments Yes 0 (1 standard drink = 0.6 oz pure alcoho l) occasional Sex Assigned at Date Recorded Male 07/12/2021 3:57 PM DAMASCENER documented as of this encounter Nursing Notes Caitlin Mcintosh RN - 08/16/2019 4:01 PM CST I reached out to the patient via Asthma Disease Registry Care team action needed: I was unable to complete the Asthma Management Plan due to no asthma medications on patient's Medication List, patient did not identify any asthma triggers. Please complete thepended response letter, mail it and sign the pended AMP order. Caitlin Mcintosh RN 08/16/2019, 4:01 PM SCENER documented in this encounter Plan of Treatment Upcoming Encounters Date Type Specialty Care Team Description 06/12/2022 Appointment Urology Raj Castro MD [address] [place], [place] [address] (Wo rk) 09/28/2022 Telemedicine Psychiatry Humera Bush MD [address] [place], [place] [address] (Wo rk) documented as of this encounter Visit Diagnoses Not on filedocumented in this encounter Care Teams Sulfonator Operator Relationship Specialty Start Date End Date Rob Tillman MD PCP - General Physical Medicine and 08/01/19 [address] [facility] [place] [place] [address] documented as of this encounter
--- OUTSIDE RECORDS SUMMARY | 2022-05-27 10:17 | XMS_ITS | Encounter Summary ---
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
--- OUTSIDE RECORDS SUMMARY | 2022-05-27 10:17 | XMS_ITS | Encounter Summary ---
:1995 Author Organization [employer] Address [address] [place] [address] Care Team Providers Name Role Phone Rob Tillman MD Primary Care Provider Encounter Details Date Type Department Care Team Description 06/12/2019 Consent for [facility]ions Department RH INFORM ED CONSENT FOR Procedure/Treatment SLEEP/AU AUDREY/VIDEO Social History Tobacco Use Types Packs/Day Years Used Date Smoking Tobacco: Never Smokeless Tobacco: Never Alcohol Use Standard Drinks/Week Comments Yes 0 (1 standard drink = 0.6 oz pure alcoho l) occasional Sex Assigned at Date Recorded Male 07/12/2021 3:57 PM BAG MENDER documented as of this encounter Plan of Treatment Upcoming Encounters Date Type Specialty Care Team Description 06/12/2022 Appointment Urology Raj Castro MD [address] [place], [place] [address] (Wo rk) 09/28/2022 Telemedicine Psychiatry Humera Bush MD [address] [place], [place] [address] (Wo rk) documented as of this encounter Visit Diagnoses Not on filedocumented in this encounter Care Teams High Density Talc Coater Operator Relationship Specialty Start Date End Date Rob Tillman MD PCP - General Physical Medicine and 08/01/19 [address] [facility] [place] [address] documented as of this encounter
--- OUTSIDE RECORDS SUMMARY | 2022-05-27 10:17 | XMS_ITS | Encounter Summary ---
:1995 Author Organization [employer] Address [address] [place] [address] Care Team Providers Name Role Phone Rob Tillman MD Primary Care Provider Reason for Visit Consult/Transfer Care (Routine) - Closed Specialty Diagnoses / Procedures Referred By Contact Refer red To Contact Diagnoses Autism (HRC) Attention deficit disorder, unspecified hyperactivity presence Depression, unspecified depression type Anxiety disorder, unspecified type (HRC) Hanane Padilla MD [address] [place], [place] [address] Referral ID Status Reason Start Date Expiration Date Visits Requ ested Visits Authorized [id number] Closed 06/29/2019 09/27/2020 1 1 Encounter Details Date Type Department Care Team Description 08/16/2019 Office Visit Humera Glez ADHD (atten tion deficit hyperactivity disorder), inattentive type (Primary Dx); Psychiatry MD Isauro Spina bifida, unspecified hydrocephalus presence, unspecified spinal region (HRC); [address] Arnold-Chiari malformation (HR); [address] . 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 They are here for transfer of care. History of Present Illness: Fly is a 24-year-old who currently resides at home with his mom and his dad in [facility]. Fly has a history dating back to . 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 Mom estimates that he had between 10 and 15 surgical procedures related to his spina bifida or orthopedic sequela of spina bifida. He has a shunt that has been in place but has been nonfunctional for about 10 years. He has had a Chiari decompression. Things were generally stable for him for quite some time until he developed Hodgkin's lymphoma in high school. He underwent 4 rounds of chemotherapy,surgical tumor resection as well as radiation therapy. He has been cancer free since 2015. Fly grew up with his family in [place] but they moved here to the [facility] in 2014. He had been home schooled until 8th grade and then attended his community-based high school. When they moved to [place] Fly was a senior in high school and he enrolled in [employer] and ultimately graduated from that program the spring. During high school he generally did quite well. He had limited special education support and had a [address] in place. He struggled socially in high schoolhowever and felt like he did not really fit in easily with other students. After graduating from high school he enrolled as a freshman in the [employer]. On his own at the [employer] hehad significant difficulties. He failed his 1st semester of classes. There are multiple complications due to a foot infection that resulted in cellulitis and required inpatient hospitalization. Efeays he did not understand the rigors of college studying. He often times did not go to was classes,he was staying in his room playing video games all the time and mom said he ???shut down.?? At somepoint during that time he was started on fluoxetine for what sounds like was in assumed episode of depression. Mom says that Fly had substantial changes after he recovered from his cancer. He has had chronicdifficulties with motivation and energy. He received multiple mental health diagnoses over the past several years including ADHD, anxiety, depression. Once he moved to the [facility] he started receiving psychiatric services. At 1 point it was apparently recommended that he be evaluated for ???autism.?? Mom says they went to the [place] [facility] [employer] and at the age of 20 he received a diagnosis of an autism spectrum disorder. Fly also started working with a community psychiatrist who now has retired which has necessitated the transfer of care. Was started on methylphenidate and takes 40 mg immediate release methylphenidate once a day in the morning. He believes this was started for his ADHD. He is on Wellbutrin XL 300 mg with Abilify 5 mg for depression, clomipramine 100 mg at nightfor ???my obsessing.?? In addition he takes an acetylcysteine 600 mg twice daily for ???skin picking .?? In reviewing specific symptoms of anxiety depression in autism things are a bit vague. Fly states that his biggest difficulty right now is related to his lack of motivation and his poor follow through. He is not motivated to do a lot of things although he does not endorse symptoms of anhedonia or overt depression. He denies any suicidal thoughts or plans. He does not have any sense of failure or low self-esteem. He does have very difficult times with concentration. He says he cannot keep his mind on anything. He tells me that he gets a lot of energy early in the morning after he takes his methylphenidate and then by mid day has a ???giant crash.?? Although he uses the word anxious to describehimself his primary worry is an obsessive focus on ???wanting a girlfriend.?? He does not have a generalized worries. He is not overly focused on perfectionism or performance issues, there are no separation issues. He does say that he is overwhelmed in certain situations. Specifically if he is in a no isy place he gets easily agitated and tends to feel like he does not want to ???do anything.?? Mom describes him at home as being generally content and happy but with very low motivation. She agrees that he is very easily overwhelmed. He is currently attending a community college and has been doing so often on for the past 5 years. He takes only couple of classes at a time. When he 1st started their he failed 2 or 3 classes in a row. Mom says he just was not serious about getting anything done. The family eventually threatened him and made it clear that unless he was either working or going to school successfully he would need to move out of their house. This seemed to provide some impetus for improved performance and he has been doing much better in school since that time. 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 He had excellent eye contact and was very socially motivated. He loved to include others in activities and wouldinvite them to participate in games and play time. On the other hand if he could find someone to interact with mom said he was also very capable of entertaining himself in seem to be content on his own. His communication was excellent, he expressed his emotions. Mom describes him as being very empathetic. He tolerated change in transition with no difficulty. He had no significant sensory issues. He had a slight increase in his gag reflex and noisy places bothered him but that was all. He could always tell what other people were sent soon from an emotional standpoint. He had some tendency to be a bit black and white in his thinking and occasionally would need a joke or a comment explained to him. He did struggle with abstract problem solving and symptoms of impulsivity and inattention. He had no overall developmental delays. He was described as being his early talker who excelled academically. Yohanid have a tendency to become preoccupied with particular activities. This interest would very and change from time to time and was never on subjects or things that were unusual or atypical. He had no repetitive excessive motor behaviors such as rocking, flapping or other self stimulatory behaviors. Currently Fly voices a lot of frustration over his general situation but is future oriented. Within the next 5 years he would like to move on from his community college to a community-based 4 year college where he can get his degree in some area of computer technology. He views himself as eventually living independently in his own apartment but in the [facility] area near his family. He would like to have a ???girlfriend.?? He is very interested and motivated to expand his current social relationships. He feels his biggest barrier to success at this point is his ongoing difficulty with task completion, organization. Because he is unfocused and disorganized he is often very unmotivated to approach tasks. Psychiatric Review of Symptoms: See history of present illness Past Psychiatric History: 1. Multiple previous diagnoses including anxiety, depression, nonverbal learning disorder, autism spectrum disorder, ADHD 2. Other than current medications he had a brief trial of Adderall XR which he felt ???was not effective.?? He also recalls that he was tried on fluoxetine and duloxetine at some point in the past formood, both were ineffective 3. Looking for a current therapist but has had intermittent therapy for the past couple of years 4. 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 Does have chronic fatigue and attributes this to his cancer chemotherapy that he had years ago. No issues with pain, denies cardiovascular, respiratory or gastrointestinal issues Current Medications: Methylphenidate immediate release 40 mg daily, Abilify 5 mg daily, Wellbutrin XL 300 mg daily, clomipramine 100 mg at bedtime, multivitamin, vitamin D3, N-acetylcysteine 600 mg twice daily Past Medical History: 1. Spina bifida with hydrocephalus and shunt placement. Shunt is currently nonfunctional and has been so for 10 years 2. Chiari decompression surgery 3. More than 10 and less than 15 surgeries related to his spina bifida and orthopedic issues 4. Hodgkin's lymphoma stage IIA with resulting chemotherapy radiation and surgical resection, cancerfree since 2014 5. Scoliosis 6. Hospitalization for cellulitis in the past Family History: Family psychiatric history is significant for depression in both parents and siblings often on over the years. Social History: Fly is 1 of 3 children born to father Aron and mother Dariana. Aron is an civil engineering intern for [employer] and is 51 years old. Mom is 50 and works as a health fitness professional part-time and is otherwise at home. There is a sister Tennille who is a civil preparedness training officer and attending [place] [employer]. She is currently living at home on a temporary basis for an computer meteorologist. There is a brother Alex who is 19 and studying computer science at the [employer]. Fly is currently trying to complete his 2 year degree in computer science at [employer] in [facility]. He graduated from high school in 2015. He lives with his parents in their home in [facility]. He currently does not drive. He has his driver operator's permit but hasnot pursued getting a driver operator's license. He is very nervous about driving. He uses occasional alcohol, primarily beer and only in social settings. He has very limited peers and friends. He is currently involved in a social skills young adult group and has found that to be very meaningful for him. Fly's states that he spends his spare time playing video games and being with his dog. He also enjoys p [employer] board games with his family. Developmental History: Fly was born after a planned uncomplicated vaginal delivery with a weight of 7 lb and 10 oz. Mom denies use of drugs alcohol or cigarettes during the . Despite his spina bifida there was no history of any type of social, cognitive, or motor delays. He was home schooled until 8th grade. In high school he [facility] [employer] [facility]. Mental Status Exam: Is a very pleasant young man who comes in with bilateral wrist crutches. His body habitus is consistent with his diagnosis of spina bifida. His affect is bright and he is smiling. Speech is unremarkable. Eye contact is appropriate. He tells me his mood is ???pretty good today.?? Is interaction style has a somewhat stilted component in that he seems a bit superficial at times but he is very appropriate, asks questions, is able to advocate for himself and provide information. Content of the interview is about his history and his current difficulties. His thought process is organized. He is not excessively concrete, he is not perseverative repetitive in any way. Cognitively thereare no issues. He is reasonably focused and attentive in my office, fund of knowledge is good, his memory is adequate. Insight judgment are reasonably good. Assessment: Fly comes in today with his mom with the primary purpose of transfer of care. We hada lengthy discussion about differential diagnosis and initial impressions. Based on his developmental history and clinical presentation in my office he does not meet the medical criteria for a diagnosis of an autism spectrum disorder. Mom does not bring any collaborative testing or information with her today. Given the history that they provide with exceptional language development and relative weakness in information processing, memory and nonverbal skills he likely does meet the diagnosis of nonverbal learning disorder which he shares has been given to him by multiple providers in the past. I letthem know that until I actually review the testing all be unable to provide that diagnosis but it seems based on presentation and history that it is likely. His current primary difficult centers around his poor motivation, decreased organization and lack offollow-through along with decreased attenti span and easy distraction. Was a bit confused by his current methylphenidate dosing which is 40 mg immediate release once a day in the morning. I have asked mom to verify that it is not an extended release product but they both stated that they believed it was immediate release and they described it as being a tablet and not a capsule suggesting that infected is immediate release. His description of affect from the methylphenidate is also consistent with immediate release. He says that he takes it in the morning and has an immediate ???jolt,?? and then abated ???crash,?? right after lunch. We talked in detail about transitioning him to a extended release formulation but before I make any specific changes mom is going to check with the pharmacy and clarify exactly what he is currently taking. I reviewed his other medications including Wellbutrin, clomipramine, and Abilify. It is not clear tome why he is on an antipsychotic and neither Fly nor his mom could really provide me with much information. I suggested that it would be reasonable to taper off of that medication given the likelihood of long-term side effects and the lack of clear indication for to use. They do feel that the Wellbutrin has helped with his focus and attention as well as mood to some degree. He has been on Anafranil apparently for his ???obsession about getting .?? He continues to struggle with that although mom says it is a ???little bit better.?? I have concerns about interactions between the Wellbutrin and the clomipramine as Wellbutrin is a potent 2D6 inhibitor which is the enzyme needed to metabolize clomipramine. Diagnostically the most prominent diagnosis at this time is his ADHD. As I get to know him better all better understand the degree to which he may have underlying mood or anxiety symptoms and adjust the diagnosis as clinically indicated. I shared that medication changes need to be made systematically and over time so that we all understand whether not the changes cause any benefit or side effects. I also would like to review the previous evaluations that have been done by other providers before making too many changes. Finally, I spent some time addressing the perception that mom has that Fly's change dramaticallyafter his chemotherapy and radiation. Certainly there may have been true physiologic and neurologic changes after chemotherapy and radiation but it was also occurring at a time of significant transition. He was in the process of leaving the highly structured high school programming and moving in to independent adulthood and college services. It is likely that that particular change also played a significant role in his inability to cope and manage. With untreated ADHD and poor executive functioning as well as his probable nonverbal learning disorder the college campus was likely overwhelming. Oftentimes students with significant learning differences struggle to make the change from high school tocollege. His learning differences in addition to his tendency to be socially isolated put him at significant risk for failure in a college environment. I strongly recommended that they work on independent life skills and social structure and support as they move forward into adulthood with the hope that Fly can transition from their home into a community-based independent living situation. Diagnosis: ADHD, primarily inattentive type. Rule out nonverbal learning disorder. Rule out underlying mood or anxiety disorder. Plan: 1. Mom to obtain further details about exact medications and dosing from the pharmacist and fax them to the clinic 2. Mom will obtain past evaluations from previous providers, neuropsychological testing, school evaluations etc 3. Anticipate discontinuing his 40 mg short-acting methylphenidate and starting him on Concerta 54 mg once daily in the morning 4. Schedule follow-up in 10 days to 2 weeks time to assess changes with his stimulant medication andmove forward to simplify his other medications as clinically indicated, most likely tapering off theAbilify as a next step. 5. Referral to [facility] for further driving evaluation if the family is interested 6. Referral to [facility] for transition services for young adults with physical disabilities No Medications ordered this encounter Follow-up visit: 1-2 weeks Visit Summary: psychiatric evaluation.. Start Time: 8:30 a.m. Stop Time: 9:30 a.m. Humera Bush MD ONAL CARE AIDE documented in this encounter Plan of Treatment Upcoming Encounters Date Type Specialty Care Team Description 06/12/2022 Appointment Urology Raj Castro MD [address], [place] [address] (Wo rk) 09/28/2022 Telemedicine Psychiatry Humera Bush MD [address] [place], [place] [address] (Wo rk) Scheduled Referrals Name Type Priority Associated Diagnoses Order S [facility] Behavioral Health Referral Routine Autism Ordered: 06/29/2019 Attention deficit disorder, unspecified hyperactivity presence Depression, unspecified depression type Anxiety disorder, unspecifie d type documented as of this encounter Visit Diagnoses Diagnosis ADHD (attention deficit hyperactivity di sorder), inattentive type (HRC) - Primary Attention deficit disorder with hyperact ivity Spina bifida, unspecified hydrocephalus presence, unspecified spinal region (HRC) Arnold-Chiari malformation (HRC) Spina bifida with hydrocephalus, unspeci fied region History of ventriculoperitoneal shunting Nonverbal learning disorder documented in this encounter Care Teams Truck Driver'S Offsider Relationship Specialty Start Date End Date Rob Tillman MD PCP - General Physical Medicine and 08/01/19 [address] [facility] [place] [address] documented as of this encounter
--- OUTSIDE RECORDS SUMMARY | 2022-05-27 10:18 | XMS_ITS | Encounter Summary ---
:1995 Author Organization [employer] Address [address] [place] [address] Care Team Providers Name Role Phone Unavailable Primary Care Provider Unavailable Encounter Details Date Type Department Care Team Description 05/16/2018 Telephone [facility] Unass igned, Provider Center Neurosurgery/Ortho [address] [place] [address] [address] [facility]. 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 Hansen on 06/30/17 at 1:00PM. Pt was in agreement of date, time, and location for appt. Ankita Rubio 05/27/2018, 11:55 AM ERECTOR Billy Thomas - 05/20/2018 3:43 PM CST Reached patient and relayed message below to him. Patient was in agreement to schedule. However patient has a class everyday from 8:00am - 4:00pm expect for fridays. I relayed that Dr. Hansen is only here on Wednesday and . He stated he could possibly leave class early for a 3:00pm appointment but would have to call back with his Mother to decide when. Patient was provided our clinic number [phone] to return call to schedule. Will wait for his return call to schedule. If he does not will try calling again late next week. Billy Thomas 05/20/2018, 3:45 PM ERECTOR Melania Fair - 05/18/2018 10:48 AM CST LMTCB ERECTOR Melania Fair - 05/17/2018 10:32 AM CST LMTCB ERECTOR Billy Thomas - 05/16/2018 8:14 AM CST LMTRC Per Radha, MARC Ely is referring this patient for a 2nd opinion with Dr. Hansen for spina bifida. Ok per MARC Chavira for next available. Billy Thomas 05/16/2018, 8:17 AM ERECTOR documented in this encounter Plan of Treatment Upcoming Encounters Date Type Specialty Care Team Description 06/12/2022 Appointment Urology Raj Castro MD [address] [place], [place] [address] (Wo rk) 09/28/2022 Telemedicine Psychiatry Humera Bush MD [address] [place], [place] [address] (Wo rk) documented as of this encounter Visit Diagnoses Not on filedocumented in this encounter
--- OUTSIDE RECORDS SUMMARY | 2022-05-27 10:18 | XMS_ITS | Encounter Summary ---
:1995 Author Organization [employer] Address [address] [place] [address] Care Team Providers Name Role Phone Unavailable Primary Care Provider Unavailable Reason for Visit Reason Comments Consult, New Patient neurogenic bladder Consult/Transfer Care (Routine) - Closed Specialty Diagnoses / Procedures Referred By Contact Refer red To Contact Urology Diagnoses Spina bifida, unspecified hydrocephalus presence, unspecified spinal region (HRC) Gait abnormality Neurogenic bowel Neurogenic bladder Rob Tillman MD [facility] [address] [place] [address] [place] [address] Fax: Referral ID Status Reason Start Date Expiration Date Visits Requ ested Visits Authorized [id number] Closed 03/28/2018 06/27/2019 1 1 Encounter Details Date Type Department Care Team Description 09/06/2018 Office Visit Specialty Center Raj Castro, Allyson rogenic bladder [facility] (Primary Dx) 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 This may be one of our physician assistants or nurse practitioners. They are always in direct communication with your physician who remains responsible for your urologic care at [facility]. For Xray, CT test, and [...] you! Get Cost of Care Estimates - [phone] The health insurance marketplace has changed dramatically in the last few years. Our cost of care service will provide estimates over the phone for treatments or procedures billed through [facility]. To receive a cost estimate, simply call [phone] during regular business hours. If you have insurance coverage, you will need to verify your policy of coverage with your health planby calling the number located on the back of your insurance card and talking to member services. documented in this encounter Progress Notes Raj Castro MD - 09/06/2018 10:30 AM CDT Images from the original note were not included. Date of Service and Exam date: 09/06/2018 Assessment Encounter Diagnosis Name Primary? Neurogenic bladder Yes Plan We discussed the pathogenesis of neurogenic bladder. We discussed the main goals with regards to management of the neurogenic bladder patient of minimizing risks of upper urinary tract deterioration, minimizing issues with urinary tract infections and facilitating social continence. Review of recent renal ultrasound from the [facility] reveals no evidence of hydronephrosis. Patient did have a history of non-Hodgkin's lymphoma managed with cyclophosphamide and wanted to discuss potential risk long-term and we did discuss the association of cyclophosphamide with urothelial malignancy. We discussed the importance of being vigilant or issues with hematuria. We also discussedreasonably one could consider a voided urine cytology annually for surveillance I also discussed my recommendation for intermittent catheterization three times a day to ensure maximal bladder drainage and to reduce the risk of upper urinary tract deterioration. He does understand the potential risk of development of long-term permanent renal dysfunction as a result of noncompliance with routine intermittent self-catheterization Please see the After Visit Summary for counseling, advice, and precautions that I gave the patient during today's visit. The clinical visit today with the patient was documented using dictation software. Please excuse any typographical errors in habilitation specialist Subjective CC/HPI: Fly Moran is a 23 y.o. old male seen in consult for urologic evaluation and treatment of neurogenic bladder in the setting of spina bifida/diastematomyelia Fly notes the following with regards to symptoms: Onset: Childhood Quality/location/duration: Inability to void spontaneously managed with Valsalva voiding, non-frequent catheterization. Currently catheterizes once a week on average Incitiing factors: None Alleviating factors: None Aggravating factors: None Associated symptoms: None Prior workup/treatment for condition: Underwent prior urodynamic testing at the [facility] lFy notes the following pertinent urologic history: Prior urologic surgery: No Prior urinary tract trauma: No Gross hematuria:No Dysuria:No History of urinary retention:Yes History of urinary tract infections:Yes Prior pelvic radiation or chemical exposure:No Prior history of sexually transmitted disease: No ROS: 14 pts reviewed with patient, as documented on Intake Form; see HPI for pertinent positives andnegatives. His past medical history, family history, social history, medications, and allergies have been reviewed and are current in [facility]. Objective BP (!) 146/85 Pulse (!) 120 Ht 5' 1 (1.549 m) Wt 140 lb (63.5 kg) BMI 26.45 kg/m?? Constitutional: Vitals reviewed above. Pleasant mannerism and in no apparent distress. Skin: Warm and dry. No active rashes, lesions, infections noted. Neck: Symmetric, no obvious mass. Respiratory: Easily breathing on room air. Good respiratory excursion. No obvious wheezes. CV: Heart rate RRR. No JVD noted. GI: flat, soft, not distended, nontender. No obvious abdominal masses, pulsations, nor HSM. No guarding or rebound. No obvious abdominal or inguinal hernias. Musculoskeletal: Wheelchair bound Neuro: Cranial nerves II-XII grossly intact. Psych: Normal affect. Alert and oriented to person, place and time. Answers questions appropriately. Lymph: No inguinal lymphadenopathy present bilaterally. : -- No CVA tenderness bilaterally noted with percussion. Lab: Creatinine (mg/dl) Date Value 04/21/2018 0.93 Imaging: US Retroperitoneum Kidney [id number]/7/2018 [facility] Result Impression IMPRESSION: No significant change compared to prior study. Normal renal parenchyma without identified stones or hydronephrosis. Result Narrative EXAM: US RETROPERITONEUM KIDNEY BILATERAL COMPARISON: US retroperitoneal limited dated 07/13/2017 and PET/CT dated 06/12/2013. FINDINGS: Right kidney: 11.1 cm Cortical thickness: Normal.? Parenchymal echogenicity: Normal. Collecting system: No hydronephrosis Masses: None detected. Left kidney: 11.0 cm Cortical thickness: Normal.? Parenchymal echogenicity: Normal. Collecting system: No hydronephrosis. Masses: None detected. Bladder: Normal. documented in this encounter Plan of Treatment Upcoming Encounters Date Type Specialty Care Team Description 06/12/2022 Appointment Urology Raj Castro MD [address] [place] [phone] (Wo rk) 09/28/2022 Telemedicine Psychiatry Humera Bush MD [address] [place], [place] [address] (Wo rk) Scheduled Referrals Name Type Priority Associated Diagnoses Order S chedule Urology Referral Routine Spina bifida, unspecified Or dered: 03/28/2018 Consult-Adults hydrocephalus presence, unspecified spinal region (HRC) Gait abnormality Neurogenic bowel Neurogenic bladder documented as of this encounter Visit Diagnoses Diagnosis Neurogenic bladder - Primary Neurogenic bladder, NOS documented in this encounter
--- OUTSIDE RECORDS SUMMARY | 2022-05-27 10:18 | XMS_ITS | Encounter Summary ---
:1995 Author Organization [email or web address] Address [address] [place] [address] Care Team Providers Name Role Phone Unavailable Primary Care Provider Unavailable Reason for Referral Procedure/Equipment (Routine) - Incomplete Specialty Diagnoses / Procedures Referred By Contact Refer red To Contact Diagnoses Spina bifida, unspecified hydrocephalus presence, unspecified spinal region (HRC) Matthew Hansen MD Procedures XR Scoliosis 2 [address] [place] [address] Referral ID Status Reason Start Date Expiration Date Visits V isits Requested Authorized [id number] Incomplete 06/30/2018 09/29/2019 1 1 HISTORIAN Reason for Visit Reason Comments SECOND OPINION Encounter Details Date Type Department Care Team Description 06/30/2018 Office Visit [facility] Scoliosis of t horacic spine, unspecified scoliosis type (Primary Dx); [facility] Al[place] Castro Spina bifida, unspecified hydrocephalus presence, unspecified spinal region (HRC) Neurosurgery/Ortho [address] [place]ine [place], [place] [address] 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 encounter Last Filed Vital Signs Vital Sign Reading Time Taken Comments Blood Pressure 149/88 06/30/2018 1:23 PM FILM HISTORIAN Pulse 93 06/30/2018 1:23 PM FILM HISTORIAN Temperature 35.8 ??C (96.4 ??F) 06/30/2018 1:23 PM FILM HISTORIAN Respiratory Rate - - Oxygen Saturation - - Inhaled Oxygen Concentration - - Weight 54.4 kg (120 lb) 06/30/2018 1:23 PM FILM HISTORIAN Height 154.9 cm (5' 1) 06/30/2018 1:23 PM FILM HISTORIAN Body Mass Index 22.67 06/30/2018 1:23 PM FILM HISTORIAN documented in this encounter Patient Instructions Patient InstructionsSadie Londono PA-C - 06/30/2018 1:00 PM CST Neurosurgery/Spine Clinic Patient Instructions Follow up with Dr. Matthew Hansen in 2 years with scoliosis XR. If tests were ordered, they will be [...] ask for your understanding. Please call the [facility] at [phone] with any further questions or concerns. HISTORIAN documented in this encounter Progress Notes Sadie Londono PA-C - 06/30/2018 1:00 PM CST Neurosurgery Clinical Consultation Primary Care Physician: Referring Physician: Dr. Ely Chief Complaint: scoliosis HPI: Fly is a pleasant 22 y.o. 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 Fly has no back or neck pain. His RLE is intact but his left side is weaker. He ambulates with crutches. He has a functional dislocation of his left hip. Previous spine surgeries: T8-L4 fusion This is not a work comp injury. Anesthesia Hx: denies problems with general anesthesia No history of MRSA Past Medical Hx: Hodgkin's lymphoma Spina bifida Scoliosis Hydrocephalus s/p shunt Chiari malformation Allergies: Latex; Pollen extract; Adhesive; Molds & smuts; and Other Current Outpatient Medications Medication Sig Note Dispense [...] by mouth. 06/30/2018: Patient not taking ??? Multiple Vitamins-Minerals ([facility] OR) daily. ??? WELLBUTRIN XL 300 MG 24 hour release tablet No current facility-administered medications for this visit. Past Surgical Hx: S/p shunt Chiari decompression T8-L4 fusion Multiple L hip surgeries Social hx: Level of education: high school Marital status: single Work status: student Smoking status: none EtOH consumption: none Family hx: Maternal grandmother-colon Review of Symptoms: As stated in HPI. Remainder of complete review of systems is negative Oswestry Score: see epic Physical Examination: BP (!) 149/88 Pulse 93 Temp (!) 96.4 ??F (35.8 ??C) (Tympanic) Ht 5' 1 (1.549 m) Wt 120 lb (54.4 kg) BMI 22.67 kg/m? General: in no acute distress. Alert and oriented x 3 ?? HEENT: head normocephalic and atraumatic ?? Neurological: CN II-XII grossly intact, speech clear and fluent in character and contact. ?? Musculoskeletal: LLE weakness, ?? Gait: antalgic gait favoring LLE, ambulates with crutches ?? Respiratory: Breathing unlabored. ?? Psych: appropriate affect and mood ?? Skin: Warm to touch to bilateral upper/lower extremities. No skin rashes or lesions noted Imaging Studies: Scoliosis radiographs: Nomenclature is based on 12 thoracic vertebrae, 12 paired ribs and bilateral lumbar-type vertebral bodies. ?? Sagittal balance is not accurately measured on a technical basis as the exact position of the C7 vertebral body is obscured due to overlying soft tissues of the shoulders and proximal arms. The sagittal balance is approximately 4.2 cm positive. ?? Lumbar lordosis measures 53 degrees. ?? Thoracic kyphosis measures 32.4 degrees. ?? Levoconvex scoliosis of the thoracic spine measuring 49 degrees. Compensatory dextroconvex curvatureof the thoracolumbar spine measuring 31.5 degrees. Postsurgical changes bilateral fusion with transversely oriented fixation screws at T8-L4 with a laterally oriented connecting ankur no evidence of hardware complication. L5 laminectomy. ?? Coronal balance is 1.4 cm the left of CSVL. Assessment: 22 yo male with h/o T8-L4 fusion for spina bifida and asymptomatic thoracic scoliosis measuring 49 degrees Plan: Patient was seen in collaboration with Dr. Hansen, and we discussed the plan in full. We reviewed the current imaging with the patient using anatomical models to explain the pathophysiology and surgical and non-surgical treatment options for Fly's condition. Since Fly is asymptomatic right now, there is no surgery recommended. If he did require surgery he would need a mid-cervical fusion extended down to the top of his current fusion at T8. The patient is in agreement with plan and has no further questions at this time. Fly will followup in 2 years or sooner if questions, concerns, or change in symptoms. Thank you for allowing me to be a part of this patient's care. Sadie Londono PA-C Neurosurgery Total time spent was 45 minutes of which more than 50% was used in counseling time, including discussion of prognosis and various surgical and non-surgical treatment options and associated risks. This note was transcribed using Dragon, there might be some spelling errors or word substitutions that were not noticed on first review HISTORIAN documented in this encounter Nursing Notes Gabrielle Lemus RN - 06/30/2018 1:00 PM CST Per [facility]OR[facility]il Hansen, order placed for AP/lat scoliosis xrays prior to visit Gabrielle Lemus RN 06/30/2018, 11:18 AM HISTORIAN documented in this encounter Plan of Treatment Upcoming Encounters Date Type Specialty Care Team Description 06/12/2022 Appointment Urology Raj Castro MD [address] [place], [place] [address] (Wo rk) 09/28/2022 Telemedicine Psychiatry Humera Bush MD [address] [place], [place] [address] (Wo rk) documented as of this encounter Results XR Scoliosis 2 Views (06/30/2018 1:19 PM FILM HISTORIAN) Anatomical Region Laterality Modality Spine, C-Spine, T-Spine, L-Spine Compute d Radiography Specimen (Source) Anatomical Collection Method Collection Time Re ceived Time Location / / Volume Laterality 06/30/2018 1:19 PM FILM HISTORIAN Narrative 06/30/2018 2:47 PM FILM HISTORIAN [facility] XR SCOLIOSIS 2 VIEWS 06/30/2018 1:19 PM INDICATION: Spinal stability COMPARISON: None FINDINGS: Nomenclature is based on 12 thoracic jami tebrae, 12 paired ribs and bilateral lumbar-type vertebral bodies. Sagittal balance is not accurately measu red on a technical basis as the exact position of the C7 vertebral body is obscured due to overlying soft tissues of the shoulders and proximal arms. The sagittal balance is approximately 4.2 cm positive. Lumbar lordosis measures 53 degrees. Thoracic kyphosis measures 32.4 degrees. Levoconvex scoliosis of the thoracic spi ne measuring 49 degrees. Compensatory dextroconvex curvature of the thoracolumbar spine measuring 31.5 degrees. Postsurgical changes bilateral fusion with transve rsely oriented fixation screws at T8-L4 with a laterally oriented connecting ankur no evidence of hardware complication. L5 laminectomy. Coronal balance is 1.4 cm the left of CS VL. Procedure Note David Brownlee MD - 06/30/2018Formatt ing of this note might be different from the original. [facility] XR SCOLIOSIS 2 VIEWS 06/30/2018 1:19 PM INDICATION: Spinal stability COMPARISON: None FINDINGS: Nomenclature is based on 12 thoracic jami tebrae, 12 paired ribs and bilateral lumbar-type vertebral bodies. Sagittal balance is not accurately measu red on a technical basis as the exact position of the C7 vertebral body is obscured due to overlying soft tissues of the shoulders and proximal arms. The sagittal balance is approximately 4.2 cm positive. Lumbar lordosis measures 53 degrees. Thoracic kyphosis measures 32.4 degrees. Levoconvex scoliosis of the thoracic spi ne measuring 49 degrees. Compensatory dextroconvex curvature of the thoracolumbar spine measuring 31.5 degrees. Postsurgical changes bilateral fusion with transversely oriented fixation screws at T8-L4 with a laterally oriented connecting ankur no evidence of hardware complication. L5 laminectomy. Coronal balance is 1.4 cm the left of CS VL. Matthew Hansen MD RAD GD documented in this encounter Visit Diagnoses Diagnosis Scoliosis of thoracic spine, unspecified scoliosis type - Primary Spina bifida, unspecified hydrocephalus presence, unspecified spinal region (HRC) Spina bifida, unspecified hydrocephalus presence, unspecified spinal region (HRC) documented in this encounter
--- OUTSIDE RECORDS SUMMARY | 2022-05-27 10:18 | XMS_ITS | Encounter Summary ---
:1995 Author Organization [facility] Address [address] [place] [address] Care Team Providers Name Role Phone No Primary/Referring, Phy Primary Care Provider Unavailable Reason for Referral Consult/Transfer Care (Routine) - Closed Specialty Diagnoses / Procedures Referred By Contact Refer red To Contact Diagnoses Folliculitis Rob Tillman MD [address] [place] [address] Referral ID Status Reason Start Date Expiration Date Visits Requ ested Visits Authorized [id number] Closed 09/27/2018 12/27/2019 1 1 Scheduling Instructions Your provider has recommended an appoint ment with [facility]. You may call [phone] to schedule your appoi ntment. If you prefer, a mobile home installer will contact you within the next 3 business d ays to assist you in setting up this appointment. We suggest you call your [employer] insurance company about your coverage and benefits for this appointment. Reason for Visit Reason Comments Revisit Encounter Details Date Type Department Care Team Description 09/27/2018 Office Visit Rob Bagley Spina bifi da without hydrocephalus, unspecified spinal region (HRC) (Primary Dx); [facility] MD Sophie Folliculitis; Physical Medicine [address] Gait abnormality; [address] 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 History of Present Illness: I had the pleasure of seeing Mr. Fly Moran on 03/28/2018 in the physical medicine and rehabilitation outpatient clinic in follow-up with regards to spina bifida. ?? Fly Moran is a 22 y.o. old male with a hx of spina bifida . Pt was referred to OP SCI clinic from Hope Cook at the [facility] for general SCI care and management. 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 Interval Hx: Since last being seen, pt has been doing well. He has been able to get in to see all consulting providers (urology, NSGY oncology, ophthalmology) in order to establish care. 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 Plans to [employer] and subsequently his bachelors in the coming months. Other issues discussed were: Neurogenic Bowel: normal, full sensation, no accidents Neurogenic Bladder: voids with high PVR's, following with urology as needed Spasticity: none MSK Pain: mild back pain, +trigger point, resolved neck stiffness MSK: L calcaneal fx, ongoing healing Neuropathic pain: none at this time Skin: skin lesions from picking, + acne, perhaps worse compared previous visit Sexuality: not discussed Mood: +depression/anxiety, sees MH in the community, improved mood with weather change ?? DME/Therapies/Function: Therapies: not in any formal therapies, working on HEP Equipment: MWC, [employer] crutches ADL's: independent Past Medical History: Spina [...] ? Molds & Smuts Other, see comments [place] mold- Respiratory Distress ??? Other Swelling Spider Venom: Severe local swelling Physical Exam: Vitals: 09/27/18 1320 BP: (!) 138/100 Pulse: (!) 112 General: NAD, pleasant, in [place] Mental status: displays appropriate affect Head: normocephalic and atraumatic Eyes: EOMI, normal conjuctiva Respiratory: normal WOB, no cough on exam Cardiovascular: normal heart rate Extremities: no obvious swelling in any of the four extremities, B/l AFO in place Skin: intact where visible Posture: +scoliosis Gait: NT MSK: +Mid back Trigger point, L of midline Range of motion: full functional range of [...] [facility] Doing well. ?? Plan: 1. Patient education: I went over the above diagnoses and treatment plan with him and answered all of his questions. 2. Exercise program: Continue HEP, stay active 3. Medications: none prescribed this visit 4. Imaging Orders: none 5. Interventions: none 6. Continue seeing MH in the community for hx of depression and anxiety 7. Dermatology referral placed for increased acne v. folliculitis 8. Follow as indicated: 1. NSGY 2. Oncology 3. Urology 4. Ophthalmology 9. Follow up: 6 months I spent a total of 40 minutes with the patient with > 50% of the time spent in education, counseling, and coordination of care. Rob Tillman MD 09/27/2018 Physical Medicine and Rehabilitation documented in this encounter Plan of Treatment Upcoming Encounters Date Type Specialty Care Team Description 06/12/2022 Appointment Urology Raj Castro MD [address] [place], [place] [address] (Wo rk) 09/28/2022 Telemedicine Psychiatry Humera Bush MD [address] [place], [place] [address] (Wo rk) Scheduled Referrals Name Type Priority Associated Diagnoses Order S chedule Dermatology Referral Routine Folliculitis Ordered: 2018 Consult-Adult/Peds documented as of this encounter Visit Diagnoses Diagnosis Spina bifida without hydrocephalus, unsp ecified spinal region (HRC) - Primary Folliculitis Other specified disease of hair and hair follicles Gait abnormality Abnormality of gait Trigger point documented in this encounter Care Teams Field Assembly Supervisor Relationship Specialty Start Date End Date No Primary/Referring, Phy PCP - General 09/23/18 documented as of this encounter
--- OUTSIDE RECORDS SUMMARY | 2022-05-27 10:18 | XMS_ITS | Encounter Summary ---
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
--- OUTSIDE RECORDS SUMMARY | 2022-05-27 10:18 | XMS_ITS | Encounter Summary ---
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 documented in this encounter Results OUTSIDE IMAGING (07/13/2017 12:00 AM CV TECH) Anatomical Region Laterality Modality Other Specimen (Source) Anatomical Location Collection Method / Collectio n Time Received Time / Laterality Volume 07/13/2017 Narrative This result has an attachment that is no t available. Phy No Primary/Referring RAD_1 documented in this encounter Visit Diagnoses Not on filedocumented in this encounter Care Teams Concessions Manager Relationship Specialty Start Date End Date No Primary/Referring, Phy PCP - General 09/23/18 documented as of this encounter
--- OUTSIDE RECORDS SUMMARY | 2022-05-27 10:18 | XMS_ITS | Encounter Summary ---
:1995 Author Organization [employer] Address [address] [place] [address] Care Team Providers Name Role Phone No Primary/Referring, Phy Primary Care Provider Unavailable Reason for Visit Reason Comments Other Encounter Details Date Type Department Care Team Description 09/23/2018 Telephone [facility] Lindsay Shannon MD Other [address] 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 After looked at his old records: suggested an director it visit for computer glasses and recheck prisms KASIE Vieira 09/23/2018, 3:52 PM Informed pt. Will have CA call pt to schedule documented in this encounter Plan of Treatment Upcoming Encounters Date Type Specialty Care Team Description 06/12/2022 Appointment Urology Raj Castro MD [address] [place], [place] [address] (Wo rk) 09/28/2022 Telemedicine Psychiatry Humera Bush MD [address] [place], [place] [address] (Wo rk) documented as of this encounter Visit Diagnoses Not on filedocumented in this encounter Care Teams Supervisor Welding Equipment Repairer Relationship Specialty Start Date End Date No Primary/Referring, Phy PCP - General 09/23/18 documented as of this encounter
--- OUTSIDE RECORDS SUMMARY | 2022-05-27 10:18 | XMS_ITS | Encounter Summary ---
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 documented in this encounter Results CARDIAC ECHO (09/26/2014 12:00 AM CDT) Specimen (Source) Anatomical Location Collection Method / Collectio n Time Received Time / Laterality Volume 09/26/2014 Narrative This result has an attachment that is no t available. Phy No Primary/Referring DUMMY/OTHER/AR documented in this encounter Visit Diagnoses Not on filedocumented in this encounter
--- OUTSIDE RECORDS SUMMARY | 2022-05-27 10:18 | XMS_ITS | Encounter Summary ---
:1995 Author Organization [facility] Address [address] [place] [address] Care Team Providers Name Role Phone Unavailable Primary Care Provider Unavailable Reason for Referral Consult/Transfer Care (Routine) - Closed Specialty Diagnoses / Procedures Referred By Contact Refer red To Contact Ophthalmology Diagnoses Spina bifida, unspecified hydrocephalus presence, unspecified spinal region (HRC) Gait abnormality Neurogenic bowel Neurogenic bladder Rob Tillman MD Ophthalmology [address] [facility] [address] [place] [address] [place] [address] Fax: Referral ID Status Reason Start Date Expiration Date Visits Requ ested Visits Authorized [id number] Closed 03/28/2018 06/27/2019 1 1 Scheduling Instructions Your provider has recommended an appoint ment with [facility] Ophthalmology. You may call [phone] to schedule your a ppointment. If you prefer, a personnel scheduler will contact you within the next 3 business d ays to assist you in setting up this appointment. We suggest you call your [employer] insurance company about your coverage and benefits for this appointment. Consult/Transfer Care (Routine) - Closed Specialty Diagnoses / Procedures Referred By Contact Refer red To Contact Hematology and Diagnoses Spina bifida, unspecified hydrocephalus presence, unspecified spinal region (HRC) Gait abnormality Neurogenic bowel Neurogenic bladder Rob Tillman, [place] Oncology Oncology [address] [facility]. [address] [place] [address] Fax: Referral ID Status Reason Start Date Expiration Date Visits Requ ested Visits Authorized [id number] Closed 03/28/2018 06/27/2019 1 1 Scheduling Instructions Your provider has recommended an appoint ment [facility]. You may call [phone] to schedule your appointment. If you prefer, a personnel scheduler will contact you within the ne xt 3 business days to assist you in setting up this appointment. We suggest you call your health insurance company about your coverage and benefits for this appointme nt. Consult/Transfer Care (Routine) - Closed Specialty Diagnoses / Procedures Referred By Contact Refer red To Contact Neurosurgery Diagnoses Spina bifida, unspecified hydrocephalus presence, unspecified spinal region (HRC) Gait abnormality Neurogenic bowel Neurogenic bladder Rob Tillman MD [facility]tho [address] [place] [address] [place] [address] Phone: Fax: Referral ID Status Reason Start Date Expiration Date Visits Requ ested Visits Authorized [id number] Closed 03/28/2018 06/27/2019 1 1 Scheduling Instructions Your provider has recommended an appoint ment with [facility]. You may call [phone], option 2 for ques tions or to schedule your appointment. If you prefer, a personnel scheduler will contact you [facility] the next 3 business days to assist [...] Help you care for your back. The patient relations specialist will help create a treatment plan with you that you and your primary care doctor can work on together to relieve your pain. Consult/Transfer Care (Routine) - Closed Specialty Diagnoses / Procedures Referred By Contact Refer red To Contact Urology Diagnoses Spina bifida, unspecified hydrocephalus presence, unspecified spinal region (HRC) Gait abnormality Neurogenic bowel Neurogenic bladder Rob Tillman MD [facility] [address] [place] [address] [place] [address] Fax: Referral ID Status Reason Start Date Expiration Date Visits Requ ested Visits Authorized [id number] Closed 03/28/2018 06/27/2019 1 1 Scheduling Instructions Your provider has recommended an appoint ment with [facility]. You may call [phone] to schedule your appoi ntment. If you prefer, a personnel scheduler will contact you within the next 3 business d ays to assist you in setting up this appointment. We suggest you call your [employer] insurance company about your coverage and benefits for this appointment. Reason for Visit Reason Comments Consult, New Patient Encounter Details Date Type Department Care Team Description 03/28/2018 Office Visit Rob Bagley Spina bifi da, unspecified hydrocephalus presence, unspecified spinal region (HRC) (Primary Dx); [facility] MD Sophie Gait abnormality; Physical Medicine [address] Neurogenic bowel; [address] 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 Consult, New Patient History of Present Illness: I had the pleasure of seeing Mr. Fly Moran on 03/28/2018 in the physical medicine and rehabilitation outpatient clinic in follow-up with regards to spina bifida. Fly Moran is a 22 y.o. old male with a hx of spina bifida . Pt was referred to OP SCI clinic from Hope oCok at the [facility] for general SCI care and management. [...] he is insensate in the BLE distally. Pt The following was discussed: Neurogenic Bowel: normal, full sensation, no accidents Neurogenic Bladder: voids with high PVR's (>350cc) Spasticity: none MSK Pain: mild back pain MSK: L calcaneal fx Neuropathic pain: none at this time Skin: skin lesions from picking Sexuality: not discussed Mood: +depression/anxiety, sees MH in the community DME/Therapies/Function: Therapies: not in any formal therapies Equipment: MWKeshawn, [place] crutches ADL's: independent Past Medical History: Spina bifida astma Myelomeningocele Depression Anxiety ADHD Hodgkin's Disease Family History: Non-contributory Social history: He is currently in college ([employer]?) studying IT. The patient lives with his parents. He reports thathe has never smoked. He has never used smokeless tobacco. Medications: No current outpatient prescriptions on file. No current facility-administered medications for this visit. Allergies: No Known Allergies Physical Exam: Vitals: 03/28/18 1559 BP: 124/79 Pulse: 81 General: NAD, pleasant, in [facility], able to self transfer Mental status: displays appropriate affect Head: normocephalic and atraumatic Eyes: conjunctivae, lids, pupils, and irises are within normal limits Respiratory: normal WOB, no cough on exam Cardiovascular: normal heart rate Extremities: no obvious swelling in any of the four extremities, B/l AFO in place Skin: intact where visible Posture: +scoliosis Gait: NT Range of motion: full functional range of motion in all joints tested Sensation: insensate distal BLE Reflexes: 2 + throughout Strength: 5/5 in all muscles tested except distal LE, +AFO b/l Tone: no spasticity or atrophy noted Cognition: superficially intact Labs: No results found for: HGB, WBC No results found for: BUN, SODIUM, K, CHLORIDE, CO2, GLUCOSE, CREATININE, GFR, CA, ANIONGAP No results found for: CRP No results found for: ESR No results found for: ALKPHOS Impression: 22 y.o. old male with a hx of spina bifida, here to establish care at [facility]. Plan: 1. Patient education: I went over the above diagnoses and treatment plan with him and answered all of his questions. 2. Exercise program: Continue HEP, stay active 3. Medications: none prescribed this visit 4. Imaging Orders: none 5. Interventions: none 6. Continue seeing MH in the community for hx of depression and anxiety 7. Referrals: 1. NSGY referral to establish care (Jhoana 2. Oncology referral to establish care (Thad) 3. Urology referral to establish care (Toyin) 4. Ophthalmology referral placed for establishing care 8. Follow up: 6 months I spent a total of 60 minutes with the patient with > 50% of the time spent in education, counseling, and coordination of care. Rob Tillman MD 03/28/2018 Physical Medicine and Rehabilitation documented in this encounter Plan of Treatment Upcoming Encounters Date Type Specialty Care Team Description 06/12/2022 Appointment Urology Raj Castro MD [address] [place], [place] [address] (Wo rk) 09/28/2022 Telemedicine Psychiatry Humera Bush MD [address] [place], [place] [address] (Wo rk) Scheduled Referrals Name Type Priority Associated Diagnoses Order S chedule Urology Consult-Adults Referral Routine Spina bifida, Orde red: 03/28/2018 unspecified hydrocephalus presence, unspecified spinal region (HRC) Gait abnormality Neurogenic bowel Neurogenic bladder Spine-Surgical Referral Routine Spina bifida, Ordered: 06/2017 Consult-Adults unspecified hydrocephalus presence, unspecified spinal region (HRC) Gait abnormality Neurogenic bowel Neurogenic bladder Oncology/Hematology Referral Routine Spina bifida, Ordered : 03/28/2018 Consult Adult unspecified hydrocephalus presence, unspecified spinal region (HRC) Gait abnormality Neurogenic bowel Neurogenic bladder Ophthalmology Referral Routine Spina bifida, Ordered: 06/2017 Consult-Adult/Peds unspecified hydrocephalus presence, unspecified spinal region (HRC) Gait abnormality Neurogenic bowel Neurogenic bladder documented as of this encounter Visit Diagnoses Diagnosis Spina bifida, unspecified hydrocephalus presence, unspecified spinal region (HRC) - Primary Gait abnormality Abnormality of gait Neurogenic bowel Neurogenic bladder Neurogenic bladder, NOS documented in this encounter
--- OUTSIDE RECORDS SUMMARY | 2022-05-27 10:18 | XMS_ITS | Encounter Summary ---
:1995 Author Organization [facility] Address [address] [place] [address] Care Team Providers Name Role Phone Unavailable Primary Care Provider Unavailable Reason for Visit Procedure/Equipment (Routine) - Incomplete Specialty Diagnoses / Procedures Referred By Contact Refer red To Contact Diagnoses Spina bifida, unspecified hydrocephalus presence, unspecified spinal region (HRC) Matthew Hansen MD Procedures XR Scoliosis 2 Views [address] [place] [address] Referral ID Status Reason Start Date Expiration Date Visits V isits Requested Authorized [id number] Incomplete 06/30/2018 09/29/2019 1 1 Encounter Details Date Type Department Care Team Description 06/30/2018 [facility], [facility] Alen Castro unspecified Radiology 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 spinal region (HRC) documented in this encounter Results XR Scoliosis 2 Views (06/30/2018 1:19 PM REPRODUCTION ARTIST) Anatomical Region Laterality Modality Spine, C-Spine, T-Spine, L-Spine Compute d Radiography Specimen (Source) Anatomical Collection Method Collection Time Re ceived Time Location / / Volume Laterality 06/30/2018 1:19 PM REPRODUCTION ARTIST Narrative 06/30/2018 2:47 PM REPRODUCTION ARTIST [facility] XR SCOLIOSIS 2 VIEWS 06/30/2018 1:19 PM [...] note might be different from the original. [facility] XR SCOLIOSIS 2 VIEWS 06/30/2018 1:19 PM [...]
--- OUTSIDE RECORDS SUMMARY | 2022-05-27 10:18 | XMS_ITS | Encounter Summary ---
:1995 Author Organization [facility] Address [address] [place] [address] Care Team Providers Name Role Phone Unavailable Primary Care Provider Unavailable Reason for Referral Procedure/Equipment (Routine) - Closed Specialty Diagnoses / Procedures Referred By Contact Refer red To Contact Diagnoses Hodgkin lymphoma, unspecified, lymph nodes of axilla and upper limb (HRC) Wyatt Oneil MD [address] [place] [phone] Referral ID Status Reason Start Date Expiration Date Visits Requ ested Visits Authorized [id number] Closed 04/21/2018 2019 1 1 Scheduling Instructions Your provider has recommended an appoint ment with [facility]. You may call [phone] t o schedule your appointment. If you prefer, a business process analyst will contact you within the ne xt 3 business days to assist you in setting up this appointment. We suggest you call your health insurance company about your coverage and benefits for this appointme nt. Consult/Transfer Care (Routine) - Closed Specialty Diagnoses / Procedures Referred By Contact Refer red To Contact Diagnoses Hodgkin lymphoma, unspecified, lymph nodes of axilla and upper limb (HRC) Wyatt Oneil MD [address] [place] [address] Referral ID Status Reason Start Date Expiration Date Visits Requ ested Visits Authorized [id number] Closed 04/21/2018 2019 1 1 Scheduling Instructions Your provider has recommended an appoint ment with [facility]. You may call [phone] to carla edule your appointment. If you prefer, a business process analyst will contact you within the ne xt 3 business days to assist you in setting up this appointment. We suggest you call your [employer] insurance company about your coverage and benefits for this appointme nt. Procedure/Equipment (Routine) - Closed Specialty Diagnoses / Procedures Referred By Contact Refer red To Contact Diagnoses Hodgkin lymphoma, unspecified, lymph nodes of axilla and upper limb (HRC) Wyatt Oneil MD [address] [place] [address] Referral ID Status Reason Start Date Expiration Date Visits Requ ested Visits Authorized [id number] Closed 04/21/2018 2019 1 1 Scheduling Instructions Your provider has recommended an appoint ment with [facility]. You may call [phone] to schedule your appoi ntment. If you prefer, a business process analyst will contact you within the next 3 business d ays to assist you in setting up this appointment. We suggest you call your [facility] insurance [employer] about your coverage and benefits for this appointment. Reason for Visit Consult/Transfer Care (Routine) - Closed Specialty Diagnoses / Procedures Referred By Contact Refer red To Contact Hematology and Diagnoses Spina bifida, unspecified hydrocephalus presence, unspecified spinal region (HRC) Gait abnormality Neurogenic bowel Neurogenic bladder Rob Tillman, [place] [facility] [address] [facility]. [address] [place] [address] Fax: Referral ID Status Reason Start Date Expiration Date Visits Requ ested Visits Authorized [id number] Closed 03/28/2018 06/27/2019 1 1 Encounter Details Date Type Department Care Team Description 04/21/2018 Office Visit [facility] One[facility], Schneider Hodgkin lymphoma, unspecifie d, lymph nodes of axilla and upper limb (HRC) (Primary Dx); [address] Brina MD Spina bifida, unspecified hydrocephalus presence, unspecified spinal region (HRC) [address]. 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 Mild neutropenia persisting on lab testing [place] Jun 2017 TREATMENT 4 months of ABVe-PC chemotherapy followed by 2100 cGy radiation to chest and mediastinum completed June 2013 PLAN: No need for additional CT imaging Yearly lab testing: CBC BMP LFT TSH due today echocardiogram every 2 years next due August 2018 Pulmonary function testing next due August 2018 Sign up for on-line services Return Dr Oneil 1 year Wyatt Oneil MD Pt scheduled as instructed Unable to sign up pt for online services since account already established, gave number to Tech assistance to access Jace Kirby documented in this encounter Progress Notes Wyatt Oneil MD - 04/21/2018 2:00 PM CDT This office note has been dictated. [id number] Wyatt Oneil MD Wyatt Oneil MD - 04/21/2018 12:00 AM CDT FLY MARTINEZ CSN: [id number] CLINIC NOTE DATE OF SERVICE: 04/21/2018 : 1995 I was asked to see this patient by Dr. Tillman for long-term followup of previously treated stage IIA classic Hodgkin lymphoma. HISTORY OF PRESENT ILLNESS: This is a 22-year-old single white male with spina bifida, cerebral palsy, and Arnold-Chiari malformation, who is living with his family in [place], who is here today with his mother for long-term followup of Hodgkin lymphoma. Five years ago in February 2013, he was found to have a 6 cm mediastinal mass serendipitously identified on thoracic spine films for scoliosis. He was evaluated and treated at the [facility], and was found to have stage IIA disease based on PET-CT and bone marrow biopsy, with 6 sites of involvement. He was treated with 4 months of ABVE-PC consisting of Adriamycin, bleomycin, vincristine, etoposide, Cytoxan, and prednisone. He had an intermediate response after 2 cycles, but a complete PET response following the 4th cycle. He then underwent involved field radiation therapy to the mediastinum, bilateral supraclavicular and bilateral axillary regions with 2100 cGy completed June 2013. He is here today for followup and continues to feel well. He was last seen at the [facility] in June 2017. He was noted to have persistent mild leukopenia following his chemotherapy and radiation. His last echocardiogram was in 2016, as were his final imaging studies. He otherwise feels well. He denies headaches, fevers, chills, cough, or chest pain. He had problems with cellulitis of the left foot at one point, and recently a foot fracture. He has had no fevers, night sweats, weight loss, or cardiopulmonary limitation from his prior therapy. 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 PAST MEDICAL HISTORY: 1. Significant for spina bifida and Arnold-Chiari malformation with cerebral palsy. 2. History of depression and anxiety with attention deficit disorder. 3. History of significant cellulitis of the left leg, 2015. 4. Chronic mild neutropenia following treatment for his lymphoma. 5. Neurogenic bladder. SOCIAL HISTORY: He is single, lives with his parents in [place]. HABITS: He does not smoke and rarely consumes alcohol. FAMILY HISTORY: There is no family history of lymphoma. A maternal grandmother had colon cancer. REVIEW OF SYSTEMS: See HPI. PHYSICAL EXAMINATION: General: This is a young wheelchair-bound man in no apparent distress. HEENT: There is no scleral icterus. No oral lesions. Lymphatics: No cervical, supraclavicular, or axillary adenopathy. Lungs: Clear. Heart: Regular. Abdomen: Soft. ASSESSMENT: Five years following combined-modality therapy for stage IIA classic nodular sclerosing Hodgkin disease, with no clinical evidence of recurrence. PLAN: I used NCCN guidelines to help develop a followup care plan. Obtain yearly routine labs to consist of a CBC, BMP, liver function tests, and TSH. He is due for an echocardiogram next year, and will also obtain baseline PFTs, given his radiation, bleomycin exposure, and underlying scoliosis. I will ask him to set up for online services. He will return to Oncology in 1 year. WYATT ONEIL MD [facility]/JALIL /[id number] documented in this encounter Plan of Treatment Upcoming Encounters Date Type Specialty Care Team Description 06/12/2022 Appointment Urology Raj Castro MD [address] [place] [phone] (Jeannie osei) 09/28/2022 Telemedicine Psychiatry Humera Bush MD [address] [place], [place] [address] (Wo rk) Scheduled Referrals Name Type Priority Associated Diagnoses Order S chedule Echocardiogram Referral Routine Hodgkin lymphoma, Ordered: 04/21/2018 unspecified, lymph nodes of axilla and upper limb (HRC) Lung Health/Pulmonary Referral Routine Hodgkin lymphoma, O rdered: 04/21/2018 Consult-Adult unspecified, lymph nodes of axilla and upper limb (HRC) Pft/Spirometry Referral Routine Hodgkin lymphoma, Ordered: 04/21/2018 unspecified, lymph nodes of axilla and upper limb (HRC) documented as of this encounter Results TSH with Free T4 (if TSH Abnormal) (04/21/2018 2:58 PM CDT) athologist Signature TSH, with 1.15 0.30 - [facility] Reflex 4.50 [facility]ATORIES uIU/ml Specimen Anatomical Collection Method Collection Time Receive d Time (Source) Location / / Volume Laterality 04/21/2018 2:58 PM 8 2:59 CDT PM CDT Narrative [facility] - 04/21/2018 7:56 PM C DT Performed at [facility], [address] [place] [address] ??[id number] Wyatt Oneil MD LAB_1 Performing Organization Address City/State/ZIP Code Phon e Number [facility] [phone] Liver Panel(Hepatic Function Panel) (04/21/2018 2:58 PM CDT) Patholo gist Method Time Signature Alkaline 79 40 - 150 [facility] Phosphatase U/L LABORATORIES Bilirubin, Total 0.4 0.2 - 1.2 [facility] mg/dl [facility] Bilirubin, 0.2 0.0 - 0.5 [facility] Direct mg/dl LABORATORIES ALT (SGPT) 41 0 - 55 U/L [facility] AST (SGOT) 24 10 - 40 [facility] U/L [facility] Protein, Total 6.9 6.4 - 8.3 [facility] g/dl [facility] Albumin 3.9 3.5 - 5.0 [facility] g/dl [facility] A/G Ratio, calc. 1.3 >1.0 [facility] Specimen Anatomical Collection Method Collection Time Receive d Time (Source) Location / / Volume Laterality 04/21/2018 2:58 PM 8 2:59 CDT PM CDT Narrative [facility] - 04/21/2018 7:52 PM C DT Performed at [address] ??[id number] Wyatt Oneil MD LAB_1 Performing Organization Address [facility] Phon e Number [facility] [phone] (ABNORMAL) Basic Metabolic Panel (04/21/2018 2:58 PM CDT) [facility] [employer] Method Time Signature Sodium 140 136 - 145 [facility] mmol/L [facility] Potassium 3.5 3.5 - 5.1 [facility] mmol/L [facility] Chloride 102 98 - 109 [facility] mmol/L [facility] CO2 30 (H) 20 - 29 [facility] mmol/L [facility] Anion Gap 8 7 - 16 [facility] (calc.) mmol/L [facility] Glucose 82 70 - 180 [facility] mg/dl [facility] Calcium 9.8 8.4 - 10.4 [facility] mg/dl [facility] BUN 14 7 - 26 [facility] mg/dl [facility] Creatinine 0.93 0.73 - [facility] 1.18 mg/dl LAB[facility]IES GFR, Estimated >60 >60 [facility] ml/min/1.7 LAB[facility]ATORIES 3m2 GFR, Est., If >60 >60 [facility] Black ml/min/1.7 LABORATORIES 3m2 Specimen Anatomical Collection Method Collection Time Receive d Time (Source) Location / / Volume Laterality 04/21/2018 2:58 PM 8 2:59 CDT PM CDT Narrative [facility] - 04/21/2018 7:52 PM C DT Performed at [facility], [address] [place] [address] ??[id number] Wyatt Oneil MD LAB_1 Performing Organization Address [facility] Phon e Number [facility] [phone] (ABNORMAL) Complete Blood Count-W/Diff (04/21/2018 2:58 PM CDT) [facility] [employer] Method Time Signature WBC 5.1 4.0 - [facility] 11.0 k/ul LAB[facility]ATOR[facility] RBC 4.87 4.5 - 5.9 [facility] M/ul [facility] Hemoglobin 15.9 13.5 - [facility] 17.5 g/dl LAB[facility] HCT 44.6 41.0 - [facility] 53.0 % LAB[facility]IES MCV 91.6 80 - 100 [facility] fl [facility] MCH 32.6 26 - 34 [facility] pg [facility] MCHC 35.7 32 - 36 [facility] g/dl [facility] RDW 12.8 11.5 - [facility] 14.5 % LAB[facility] Platelets 254 150 - 450 [facility] k/ul [facility] PMN/Band 54 % [facility] Lymph 28 % [facility] [place] 15 % [facility] Eos 2 % [facility] Baso 1 % [facility] Neutrophil 2.7 1.8 - 7.7 [facility] Absolute k/ul LAB[facility]IES Lymph Absolute 1.4 1.0 - 4.8 [facility] k/ul [facility] [place] Absolute 0.8 (H) 0.1 - 0.7 [facility] k/ul [facility] Eos Absolute 0.1 0.0 - 0.5 [facility] k/ul [facility] Baso Absolute 0.0 0.0 - 0.2 [facility] k/ul [facility] Immature Gran 0 % [facility] Imm Gran 0.0 0 k/ul [facility] Absolute [facility] Specimen Anatomical Collection Method Collection Time Receive d Time (Source) Location / / Volume Laterality 04/21/2018 2:58 PM 8 2:59 CDT PM CDT Narrative [facility] - 04/21/2018 7:32 PM C DT Performed at [facility], [address] [place] [phone] Wyatt Oneil MD LAB_1 Performing Organization Address City/State/ZIP Code Phon e Number [facility] [phone] documented in this encounter Visit Diagnoses Diagnosis Hodgkin lymphoma, unspecified, lymph nod es of axilla and upper limb (HRC) - Primary Spina bifida, unspecified hydrocephalus presence, unspecified spinal region (HRC) Hodgkin lymphoma, unspecified, lymph nod es of axilla and upper limb (HRC) documented in this encounter
--- OUTSIDE RECORDS SUMMARY | 2022-05-27 10:18 | XMS_ITS | Encounter Summary ---
:1995 Author Organization [facility] 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
--- OUTSIDE RECORDS SUMMARY | 2022-05-27 10:18 | XMS_ITS | Encounter Summary ---
:1995 Author Organization [employer] Address [address] [place] [address] Care Team Providers Name Role Phone Unavailable Primary Care Provider Unavailable Encounter Details Date Type Department Care Team Description 04/21/2018 Lab Visit [facility] Hodgkin lymphoma, [address] 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 Caitlyn Kamara RN Wyatt Oneil MD - 04/25/2018 8:34 AM CDT Please call pt: previously mildly low WBC is now normal! Wyatt Oneil MD documented in this encounter Plan of Treatment Upcoming Encounters Date Type Specialty Care Team Description 06/12/2022 Appointment Urology Raj Castro MD [address] [place] [address] (Wo rk) 09/28/2022 Telemedicine Psychiatry Humera Bush MD [address] [place], [place] [address] (Wo rk) documented as of this encounter Procedures Procedure Name Priority Date/Time Associated Diagnosis Comme nts COMPLETE BLOOD Routine 04/21/2018 2:58 PM Hodgkin lymphoma, Re sults for this COUNT-W/DIFF CDT unspecified, lymph procedure are in nodes of axilla and the resu lts upper limb (HRC) section. LIVER PANEL(HEPATIC Routine 04/21/2018 2:58 PM Hodgkin lymphom a, Results for this FUNCTION PANEL) CDT unspecified, lymph proced ure are in nodes of axilla and the resu lts upper limb (HRC) section. BASIC METABOLIC Routine 04/21/2018 2:58 PM Hodgkin lymphoma, R esults for this PANEL CDT unspecified, lymph procedure are in nodes of axilla and the resu lts upper limb (HRC) section. TSH, SENSITIVE Routine 04/21/2018 2:58 PM Hodgkin lymphoma, Re sults for this (WITH REFLEX) CDT unspecified, lymph procedur e are in nodes of axilla and the resu lts upper limb (HRC) section. documented in this encounter Results TSH with Free T4 (if TSH Abnormal) (04/21/2018 2:58 PM CDT) athologist Signature TSH, with 1.15 0.30 - [facility] Reflex 4.50 LAB[facility]ATORIES uIU/ml Specimen Anatomical Collection Method Collection Time Receive d Time (Source) Location / / Volume Laterality 04/21/2018 2:58 PM 8 2:59 CDT PM CDT Narrative [facility] - 04/21/2018 7:56 PM C DT Performed at [facility], [address] ??[id number] Wyatt Oneil MD LAB_1 Performing Organization Address City/State/ZIP Code Phon e Number [facility] [phone] Liver Panel(Hepatic Function Panel) (04/21/2018 2:58 PM CDT) [facility] Method Time Signature Alkaline 79 40 - [...] 04/21/2018 7:52 PM C DT Performed at [address] ??[id number] Wyatt Oneil MD LAB_1 Performing Organization Address City/State/ZIP Code Phon e Number [facility] [phone] (ABNORMAL) Basic Metabolic Panel (04/21/2018 2:58 PM CDT) [facility] Method Time Signature Sodium 140 136 - [...] 04/21/2018 7:52 PM C DT Performed at [address] ??[id number] Wyatt Oneil MD LAB_1 Performing Organization Address City/State/ZIP Code Phon e Number [facility] [phone] (ABNORMAL) Complete Blood Count-W/Diff (04/21/2018 2:58 PM CDT) [facility] Method Time Signature WBC 5.1 4.0 - [...] [facility] Lymph 28 % [facility] [place] 15 % [facility] Eos 2 % [facility] Baso 1 % [facility] Neutrophil 2.7 1.8 - 7.7 [facility] Absolute k/ul LAB[facility]ATORIES Lymph Absolute 1.4 1.0 - 4.8 [facility] k/ul [facility] [place] Absolute 0.8 (H) 0.1 - 0.7 [facility] [...] 04/21/2018 7:32 PM C DT Performed at [facility], [address] [place] [id number] Wyatt Oneil MD LAB_1 Performing Organization Address City/State/ZIP Code Phon e Number [facility] [phone] documented in this encounter Visit Diagnoses Diagnosis Hodgkin lymphoma, unspecified, lymph nod es of axilla and upper limb (HRC) documented in this encounter
--- OUTSIDE RECORDS SUMMARY | 2022-05-27 10:18 | XMS_ITS | Encounter Summary ---
:1995 Author Organization [facility] Address [address] [place] [address] Care Team Providers Name Role Phone Unavailable Primary Care Provider Unavailable Reason for Visit Procedure/Equipment (Routine) - Incomplete Specialty Diagnoses / Procedures Referred By Contact Refer red To Contact Procedures Provider, Foreign Images Foreign Image(S) MR Head [address] [place] [address] Referral ID Status Reason Start Date Expiration Date Visits V isits Requested Authorized [id number] Incomplete 08/18/2019 11/16/2020 1 1 Encounter Details Date Type Department Care Team Description 05/10/2014 Ancillary Procedure [facility] PACS Provider, [address] [address] [address] [place] [address] Social History Tobacco Use Types Packs/Day Years Used Date Smoking Tobacco: Never Assessed Sex Assigned at Date Recorded 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 documented in this encounter Results Foreign Image(S) MR Head (05/10/2014 12:00 AM DENTURE TECHNICIAN) Specimen (Source) Anatomical Location Collection Method / Collectio n Time Received Time / Laterality Volume Narrative EXTERNAL RESULTS - 08/18/2019 3:18 PM CS T These outside images have been uploaded into PACS. If the results were provided, they will be located in the pa luz mariant's chart under the Media or Imaging tab. Foreign Images Provider RAD NON-REPORTABLES Performing Organization Address City/State/ZIP Code Phon e Number EXTERNAL RESULTS documented in this encounter Visit Diagnoses Not on filedocumented in this encounter
--- OUTSIDE RECORDS SUMMARY | 2022-05-27 10:18 | XMS_ITS | Encounter Summary ---
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
--- OUTSIDE RECORDS SUMMARY | 2022-05-27 10:18 | XMS_ITS | Encounter Summary ---
:1995 Author Organization [facility] Address [address] [place] [address] Care Team Providers Name Role Phone Unavailable Primary Care Provider Unavailable Reason for Visit Reason Comments Symptoms Encounter Details Date Type Department Care Team Description 08/15/2018 Telephone [facility] Matthew Chau MD Symptoms Center Neurosurgery/Ortho [address] [place] [place] [address] 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 documented as of this encounter Nursing Notes Beulah Morton RN - 08/29/2018 9:19 AM CST Will close encounter as patient has not returned calls.Beulah Morton RN 08/29/2018, 9:20 AM F LIBRARIAN MUSIC DEPARTMENT Beulah Morton RN - 08/25/2018 11:28 AM CST [facility].Beulah Morton RN 08/25/2018, 11:29 AM F LIBRARIAN MUSIC DEPARTMENT Beulah Morton RN - 08/15/2018 4:22 PM CST [facility].Beulah Morton RN 08/15/2018, 4:22 PM F LIBRARIAN MUSIC DEPARTMENT Billy Thomas - 08/15/2018 8:35 AM CST Patient is calling to report some symptoms that he has been experiencing in the last 5 or so days. His neck has been really stiff and at times painful (last 2 days). The pain is located in the center of his vetebral column. He is also having trouble talking and his mouth seems to not respond as fast as he would like it to. He also noticed that he has been more clumsy then usual as well. Patient wouldlike a return call to further discuss and be advised. Billy Thomas 08/15/2018, 8:40 AM F LIBRARIAN MUSIC DEPARTMENT documented in this encounter Plan of Treatment Upcoming Encounters Date Type Specialty Care Team Description 06/12/2022 Appointment Urology Raj Castro MD [address] [place], [place] [address] (Wo rk) 09/28/2022 Telemedicine Psychiatry Humera Bush MD [address] [place] [address] (Wo rk) documented as of this encounter Visit Diagnoses Not on filedocumented in this encounter
--- OUTSIDE RECORDS SUMMARY | 2022-05-27 10:18 | XMS_ITS | Encounter Summary ---
:1995 Author Organization [employer] Address [address] [place] [address] Care Team Providers Name Role Phone Unavailable Primary Care Provider Unavailable Reason for Visit Reason Comments Test Results Encounter Details Date Type Department Care Team Description 08/30/2018 Telephone [facility] Wyatt Oneil MD Test Results [address] [facility]. . 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 Results discussed, and also plans to bring in documents pertaining to guardianship and verbal release. They are also interested in online services. Annabelle Lake LPN 08/30/2018, 4:10 PM UMER AFFAIRS DIRECTOR Annabelle Lake LPN - 08/30/2018 11:15 AM CST Did not find document in Media, supporting Naa's legal status RE: Fly. Nor is there a JOHANNA. LMTCB on Naa's phone, since demographics indicated she was legal guardian. Message on Fly's VM states that he doesn't check VM, and he doesn't have online services. Will keep this message for ashort while, but send letter. Annabelle Lake LPN 08/30/2018, 11:18 AM UMER AFFAIRS DIRECTOR Annabelle Lake LPN - 08/30/2018 11:11 AM CST ----- Message from Wyatt Oneil MD sent at 08/30/2018 9:38 AM CONSUMER AFFAIRS DIRECTOR ----- Call with nml echo results Wyatt Oneil MD UMER AFFAIRS DIRECTOR documented in this encounter Plan of Treatment Upcoming Encounters Date Type Specialty Care Team Description 06/12/2022 Appointment Urology Raj Castro MD [address] [place] [address] (Wo rk) 09/28/2022 Telemedicine Psychiatry Humera Bush MD [address] [place], [place] [address] (Wo rk) documented as of this encounter Visit Diagnoses Not on filedocumented in this encounter
--- OUTSIDE RECORDS SUMMARY | 2022-05-27 10:18 | XMS_ITS | Encounter Summary ---
:1995 Author Organization [email or web address] Address [address] [place] [address] Care Team Providers Name Role Phone Unavailable Primary Care Provider Unavailable Reason for Visit Procedure/Equipment (Routine) - Closed Specialty Diagnoses / Procedures Referred By Contact Refer red To Contact Diagnoses Hodgkin lymphoma, unspecified, lymph nodes of axilla and upper limb (HRC) Wyatt Oneil MD [address] [place] [address] Referral ID Status Reason Start Date Expiration Date Visits Requ ested Visits Authorized [id number] Closed 04/21/2018 2019 1 1 Encounter Details Date Type Department Care Team Description 09/05/2018 Office Visit Specialty Center 401 Hodg kin lymphoma, Pulmonary Lab unspecified, lymph nodes [address] 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 Kasandra Lr RN - 09/05/2018 1:00 PM CDT I still am not able to access the results yet Romi Ivan RN - 09/05/2018 1:00 PM CDT Results available in view study image. Romi Ivan RN 09/13/2018, 11:40 AM documented in this encounter Plan of Treatment Upcoming Encounters Date Type Specialty Care Team Description 06/12/2022 Appointment Urology Raj Castro MD [address] [place], [place] [address] (Wo rk) 09/28/2022 Telemedicine Psychiatry Humera Bush MD [address] [place], [place] [address] (Wo rk) documented as of this encounter Procedures Procedure Name Priority Date/Time Associated Diagnosis Comme nts PFT TESTING Routine 09/05/2018 1:13 PM Hodgkin lymphoma, Resu lts for this CDT unspecified, lymph procedure are in the nodes of axilla and results section. upper limb (HRC) documented in this encounter Results PFT Testing (09/05/2018 1:13 PM CDT) Specimen (Source) Anatomical Collection Method Collection Time Re ceived Time Location / / Volume Laterality 09/05/2018 1:13 PM CDT Wyatt Oneil MD [facility] Performing Organization Address City/State/ZIP Code Phon e Number [facility] documented in this encounter Visit Diagnoses Diagnosis Hodgkin lymphoma, unspecified, lymph nod es of axilla and upper limb (HRC) - Primary documented in this encounter
--- OUTSIDE RECORDS SUMMARY | 2022-05-27 10:18 | XMS_ITS | Encounter Summary ---
:1995 Author Organization [employer] Address [address] [place] [address] Care Team Providers Name Role Phone Unavailable Primary Care Provider Unavailable Reason for Visit Procedure/Equipment (Routine) - Closed Specialty Diagnoses / Procedures Referred By Contact Refer red To Contact Diagnoses Hodgkin lymphoma, unspecified, lymph nodes of axilla and upper limb (HRC) Wyatt Oneil MD [address] [place] [id number] Referral ID Status Reason Start Date Expiration Date Visits Requ ested Visits Authorized [id number] Closed 04/21/2018 2019 1 1 Encounter Details Date Type Department Care Team Description 08/29/2018 Notes/Orders Anna Echocardio grams Encounter for follow-up [address] 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 documented as of this encounter Progress Notes Wyatt Oneil MD - 08/29/2018 10:00 AM CST Call with nml echo results Wyatt Oneil MD MBLY MACHINE FEEDER documented in this encounter Plan of Treatment Upcoming Encounters Date Type Specialty Care Team Description 06/12/2022 Appointment Urology Raj Castro MD [address] [place], [place] [address] (Wo rk) 09/28/2022 Telemedicine Psychiatry Humera Bush MD [address] [place], [place] [address] (Wo rk) documented as of this encounter Procedures Procedure Name Priority Date/Time Associated Comments Diagnosis EJECTION FRACTION Routine 08/29/2018 9:53 Results for this AM ASSEMBLY MACHINE FEEDER procedure are i n the results section. CARDIAC ROUTINE Routine 08/29/2018 9:53 Encounter for Results for this ECHOCARDIOGRAM AM ASSEMBLY MACHINE FEEDER follow-up procedure are in examination after the result s completed treatment section. for malignant neoplasm documented in this encounter Results EJECTION FRACTION (08/29/2018 9:53 AM ASSEMBLY MACHINE FEEDER) P athologist Signature EF 55 % [facility] EF test type ECHO [facility] Specimen (Source) Anatomical Collection Method Collection Time Re ceived Time Location / / Volume Laterality 08/29/2018 9:53 AM ASSEMBLY MACHINE FEEDER Wyatt Oneil MD [facility] STEAM DRIER TENDER/RH Performing Organization Address City/State/ZIP Code Phon e Number [facility] [address] [place] [address] CARDIAC ROUTINE ECHOCARDIOGRAM (08/29/2018 9:53 AM ASSEMBLY MACHINE FEEDER) Specimen (Source) Anatomical Collection Method Collection Time Re ceived Time Location / / Volume Laterality 08/29/2018 9:53 AM ASSEMBLY MACHINE FEEDER Narrative [facility] - 08/29/2018 5:10 PM ASSEMBLY MACHINE FEEDER Contrast: ?Contrast Allergy: Clinical Indications:Chemo follow up ?? CONCLUSION: Echo 2018-08-29 09:53. ?? Rhythm is sinus tachycardia throughout. 1. Normal LV size and systolic function . Visually estimated LVEF is ?? 55%. Strain imaging is limited by subop timal apical images, however ?? ranges from -18 to -20 (normal). 2. Normal RV size and function. ?? 3. No hemodynamically significant valvu lar abnormalities. 4. IVC is normal in size and responsive to inspiration indicating ?? normal RA pressure. ?? No prior study available for comparison . Left Ventricular Ejection Fraction: 55 % ICD Codes: ? Technical Quality: Patient Vital Signs: Ht HT ??61 ?Ht(in): ?Wt (lb) :120 ?BSA: ?? 1.53 ?BP: ? / ? IV Information: IV Inserted By: IV Site: IV Site Appearance: IV Size: IV Removed By: IV Other: ?2D, Doppler a nd color flow Doppler study ?performed. ? Measurements: 2D ECHO Body Height ? 61 in ? Body Weight ? 120 lb ? Body Surface Area ? 1.5 m? LV Diastolic Diameter Base LX ? 3.9 cm ?3.5-5.7 LV Systolic Diameter Base LX ?2. 6 cm ?2.3-4.9 LV Diastolic Diameter Index ? 2. 5 cm/m? IVS Diastolic Thickness ? 0.92 cm ? 0.6-1.1 cm LVPW Diastolic Thickness ? 0.78 cm ? 0.6-1.1 cm DOPPLER AV Peak Velocity ?100 cm/s ? AV Peak Gradient ?4 mmHg ? AV Mean Gradient ?2.5 mmHg ? AV Velocity Time Integral ? 1 7 cm ? LVOT Peak Velocity ?81.6 cm/s ? LVOT Peak Gradient ?2.7 mmHg ? LVOT Mean Gradient ?1.2 mmHg ? LVOT Velocity Time Integral ? 11 .7 cm ? LVOT Diameter ? 2 cm ? LVOT Area ? 3.1 cm? LVOT AV VTI Ratio ? 0.69 ? AV Stroke Volume ?36 cm? AV Area Cont Eq vti ? 2.1 cm? AV Area Cont Eq pk ?2.5 cm? COLOR DOPPLER LVOT Diameter ? 2 cm ? Left Ventricle: ? Normal LV size an d systolic function. No ? gross reg ional wall motion abnormalities ? identifie d. Normal left ventricular wall ? thickness . ??Diastolic function not assessed. Right Ventricle: ?Normal RV size an d function. Left Atrium: ?Normal LA size Right Atrium: ? Normal RA size. Aortic Valve: ? Aortic valve is tri-leaflet and functions ? normally. Mitral Valve: ? Trace mitral reg urgitation. Tricuspid Valve: ?Trace tricuspid r egurgitation. Unable to ? accuratel y assess PA pressure due to ? inadequat e TR envelope. Pulmonic Valve: ? Trace pulmonic re gurgitation. Aorta: ?Aorta is nor mal in dimension proximally. Pericardium: ?No gross perica rdial effusion. IVC: ?IVC is norm al in size and responsive to ? inspirati on indicating normal RA pressure. IAS: ?Interatrial septum appears intact. 3D Imaging/Contrast: ?Norma Michelle ??(Electronically Signed) ??Final Date:29 August 2018 17:09 Procedure Note Norma Michelle MD - 08/29/2018Forma tting of this note might be different from the original. Contrast: Contrast Allergy: Clinical Indications:Chemo follow up CONCLUSION: Echo 2018-08-29 09:53. Rhythm is sinus tachycardia throughout. 1. Normal LV size and systolic function . Visually estimated LVEF is 55%. Strain imaging is limited by subop timal apical images, however ranges from -18 to -20 (normal). 2. Normal RV size and function. 3. No hemodynamically significant valvu lar abnormalities. 4. IVC is normal in size and responsive to inspiration indicating normal RA pressure. No prior study available for comparison . Left Ventricular Ejection Fraction: 55 % ICD Codes: Technical Quality: Patient Vital Signs: Ht HT 61 Ht(in): Wt (lb):120 BSA: 1.53 BP: / IV Information: IV Inserted By: IV Site: IV Site Appearance: IV Size: IV Removed By: IV Other: 2D, Doppler and color flow Doppler stud y performed. Measurements: 2D ECHO Body Height 61 in Body Weight 120 lb Body Surface Area 1.5 m?? LV Diastolic Diameter Base LX 3.9 cm 3. 5-5.7 LV Systolic Diameter Base LX 2.6 cm 2.3 -4.9 LV Diastolic Diameter Index 2.5 cm/m?? IVS Diastolic Thickness 0.92 cm 0.6-1.1 cm LVPW Diastolic Thickness 0.78 cm 0.6-1. 1 cm DOPPLER AV Peak Velocity 100 cm/s AV Peak Gradient 4 mmHg AV Mean Gradient 2.5 mmHg AV Velocity Time Integral 17 cm LVOT Peak Velocity 81.6 cm/s LVOT Peak Gradient 2.7 mmHg LVOT Mean Gradient 1.2 mmHg LVOT Velocity Time Integral 11.7 cm LVOT Diameter 2 cm LVOT Area 3.1 cm?? LVOT AV VTI Ratio 0.69 AV Stroke Volume 36 cm?? AV Area Cont Eq vti 2.1 cm?? AV Area Cont Eq pk 2.5 cm?? COLOR DOPPLER LVOT Diameter 2 cm Left Ventricle: Normal LV size and syst olic function. No gross regional wall motion abnormalitie s identified. Normal left ventricular wal l thickness. Diastolic function not asses sed. Right Ventricle: Normal RV size and fun ction. Left Atrium: Normal LA size Right Atrium: Normal RA size. Aortic Valve: Aortic valve is tri-leafl et and functions normally. Mitral Valve: Trace mitral regurgitatio n. Tricuspid Valve: Trace tricuspid regurg itation. Unable to accurately assess PA pressure due to inadequate TR envelope. Pulmonic Valve: Trace pulmonic regurgit ation. Aorta: Aorta is normal in dimension pro ximally. Pericardium: No gross pericardial effus ion. IVC: IVC is normal in size and responsi ve to inspiration indicating normal RA pressu re. IAS: Interatrial septum appears intact. 3D Imaging/Contrast: Norma Michelle (Electronically Signed) Final Date:29 August 2018 17:09 Wyatt Oneil MD [facility] E[facility]/RH Performing Organization Address City/State/ZIP Code Phon e Number [facility] [address] [place] [address] documented in this encounter Visit Diagnoses Diagnosis Encounter for follow-up examination afte r completed treatment for malignant neoplasm (HRC) - Primary Unspecified follow-up examination documented in this encounter
--- OUTSIDE RECORDS SUMMARY | 2022-05-27 10:18 | XMS_ITS | Encounter Summary ---
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
--- OUTSIDE RECORDS SUMMARY | 2022-05-27 10:18 | XMS_ITS | Encounter Summary ---
:1995 Author Organization [facility] Address [address], [place] [address] Care Team Providers Name Role Phone Unavailable Primary Care Provider Unavailable Reason for Visit Procedure/Equipment (Routine) - Incomplete Specialty Diagnoses / Procedures Referred By Contact Refer red To Contact Procedures Provider, Foreign Images Foreign Image(S) MR Head [address] [place] [address] Referral ID Status Reason Start Date Expiration Date Visits V isits Requested Authorized [id number] Incomplete 08/18/2019 11/16/2020 1 1 Encounter Details Date Type Department Care Team Description 01/04/2014 Ancillary Procedure [facility] Radiology PACS Provider, [address] [address] [address] [place] [address] Social History Tobacco Use Types Packs/Day Years Used Date Smoking Tobacco: Never Assessed Sex Assigned at Date Recorded 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 documented in this encounter Results Foreign Image(S) MR Head (01/04/2014 12:00 AM CDT) Specimen (Source) Anatomical Location Collection Method / Collectio n Time Received Time / Laterality Volume Narrative EXTERNAL RESULTS - 08/18/2019 3:20 PM CS T These outside images have [...]
--- OUTSIDE RECORDS SUMMARY | 2022-05-27 10:18 | XMS_ITS | Encounter Summary ---
:1995 Author Organization [facility] Address [address] [place] [address] Care Team Providers Name Role Phone Unavailable Primary Care Provider Unavailable Reason for Visit Reason Comments Consult, New Patient Consult/Transfer Care (Routine) - Closed Specialty Diagnoses / Procedures Referred By Contact Refer red To Contact Neurosurgery Diagnoses Spina bifida, unspecified hydrocephalus presence, unspecified spinal region (HRC) Gait abnormality Neurogenic bowel Neurogenic bladder Rob Tillman [place] [facility] [address] [place] [address] [place] [address] Phone: Fax: Referral ID Status Reason Start Date Expiration Date Visits Requ ested Visits Authorized [id number] Closed 03/28/2018 06/27/2019 1 1 Encounter Details Date Type Department Care Team Description 05/13/2018 Office Visit [facility] Ronnell Ely M D Hydrocephalus Neuroscience [facility] [address] [facility] (P rimary Dx) Neurosurgery/Ortho S Spine [facility] [address] 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 documented as of this encounter Last Filed Vital Signs Vital Sign Reading Time Taken Comments Blood Pressure 139/80 05/13/2018 12:03 PM MEDICAL RECORD ADMINISTRATOR Pulse 89 05/13/2018 12:03 PM MEDICAL RECORD ADMINISTRATOR Temperature 37.1 ??C (98.7 ??F) 05/13/2018 12:03 PM MEDICAL RECORD ADMINISTRATOR Respiratory Rate - - Oxygen Saturation - - Inhaled Oxygen Concentration - - Weight 56.7 kg (125 lb) 05/13/2018 12:03 PM MEDICAL RECORD ADMINISTRATOR Height 154.9 cm (5' 1) 05/13/2018 12:03 PM MEDICAL RECORD ADMINISTRATOR Body Mass Index 23.62 05/13/2018 12:03 PM MEDICAL RECORD ADMINISTRATOR documented in this encounter Patient Instructions Patient InstructionsRadha Cavanaugh RN - 05/13/2018 11:30 AM CST Neurosurgery Center Patient Instructions Follow up: with Dr. Ronnell Ely as needed.. Please arrive 20 minutes early to have xrays done prior to your appointment; if ordered from your last appointment. If tests were ordered, they will be reviewed at your next office visit. Please allow 10-14 days for forms to be completed and 2-3 business days for medication refills to beaddressed. If you have a change in your [...] ask for your understanding. Please call the Neurosurgery Center [phone] with any further questions or concerns. Thank you for coming to see us today. We are your partner. CAL RECORD ADMINISTRATOR documented in this encounter Progress Notes Ronnell Ely MD - 05/13/2018 11:30 AM CST Date of Service: 05/13/18 Fly Moran is a 22 y.o. old male. Neurosurgery consultation is requested by Rob Coello Chief concern: Spina bifida, history of hydrocephalus and scoliosis requiring scoliosis correction fusion surgery HPI: Fly Moran is accompanied to neurosurgery clinic with his mother. He is referred by Dr. Rob Tillman for assistance in establishing local multidisciplinary health care providers given his complexmedical history, including stage II A Hodgkin's lymphoma, status post chemotherapy and radiation (hesees Dr. Jonah Oneil for advice), history of spina bifida and myelomeningocele (he sees Dr. Tillmanin physical medicine rehabilitation), Arnold-Chiari malformation status post decompression, hydrocephalus status post shunt (referred to Neurosurgery), history of scoliosis corrective surgery. I reviewed the records provided by the [facility]. Of note, Mr. Moran has discontinuity of his shunt, but is doing very well and does not appear to be shunt dependent. The recommendation is not to remove or revise the shunt. Regarding his clinical function, he does have neurogenic bladder and performs self catheterization (not as frequently as he should), despite dislocated left hip he can ambulatewith crutches. His sensory and motor function are stable. I can feel everything except the left foot. The sensation in my left thigh and leg is diminished compared to the right. In my left leg I have difficulty feeling pain. I can feel my sitting surface. ROS: Doing well. Denies headache. Denies back pain. No change in neurological motor or functional level. No past medical history on file. No past surgical history on file. Imaging: Thoracic spine x-ray dated 04/05/2017, viewable in PACS T8-L4 instrumented fusion construct. Above level left coronal tilt. Exam: He can easily extend the right knee against gravity but struggles to extend the left knee against gravity. He wears bilateral AFOs. A/P: Mr. Moran is doing very well. Despite the aforementioned comorbidities as listed in history of present illness, his neurological level is stable, as it has been for years, unchanged. I do not think the hydrocephalus is symptomatic. I do not think he has a clinically significant syrinx. We do not havebrain imaging on file. We will request any available brain imaging from the [facility] team. I do not think Mr. Moran needs follow up regarding the Chiari malformation or hydrocephalus. We will have his imaging on record however. Regarding the scoliosis, I will refer him to a colleague who isan expert at scoliosis corrective surgery. I am not saying he needs surgery now, but I would like exp ert advice on how to follow his above fusion scoliotic curve. We will plan follow up with sitting scoliosis x-rays. Visit time: 45 minutes. Greater than 50% of time spent counseling or coordinating care. Ronnell Ely MD 05/13/2018, 5:52 PM CAL RECORD ADMINISTRATOR documented in this encounter Plan of Treatment Upcoming Encounters Date Type Specialty Care Team Description 06/12/2022 Appointment Urology Raj Castro MD [address] [place], [place] [address] (Wo rk) 09/28/2022 Telemedicine Psychiatry Humera Bush MD [address] [place], [place] [address] (Wo rk) documented as of this encounter Visit Diagnoses Diagnosis Hydrocephalus (HRC) - Primary Obstructive hydrocephalus documented in this encounter
--- OUTSIDE RECORDS SUMMARY | 2022-05-27 10:18 | XMS_ITS | Encounter Summary ---
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 documented in this encounter Results SPIROMETRY--SCAN (09/26/2014 12:00 AM CDT) Specimen (Source) Anatomical Location Collection Method / Collectio n Time Received Time / Laterality Volume 09/26/2014 Narrative This result has an attachment that is no t available. Provider [facility] EEG/RH documented in this encounter Visit Diagnoses Not on filedocumented in this encounter
--- OUTSIDE RECORDS SUMMARY | 2022-05-27 10:18 | XMS_ITS | Encounter Summary ---
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 documented as of this encounter Plan of Treatment Upcoming Encounters Date Type Specialty Care Team Description 06/12/2022 Appointment Urology Raj Castro MD [address] [place], [place] [address] (Wo rk) 09/28/2022 Telemedicine Psychiatry Humera Bush MD [address] [place], [place] [address] (Wo rk) documented as of this encounter Visit Diagnoses Not on filedocumented in this encounter Care Teams Marriage Therapist Relationship Specialty Start Date End Date Rob Tillman MD PCP - General Physical Medicine and 08/01/19 [address] [facility] Rehabilitation [place], [place] [phone] documented as of this encounter
[2022-05-27 14:15] LABS: Albumin* 4.9 g/dL (3.3-5.0); Chloride* 103 mmol/L (96-114); Potassium* 4.3 mmol/L (3.6-5.1); Sodium* 142 mmol/L (135-149)
[2022-05-27 14:17] LABS: Creatinine* 0.9 mg/dL (0.5-1.5); Estimated Glomerular Filt Rate 122 ml/min
[2022-05-27 14:18] LABS: Alanine Aminotransferase* 73 U/L (4-50); Alkaline Phosphatase* 75 U/L (40-150); Aspartate Amino Transferase* 46 U/L (12-35); Bilirubin Total* 0.5 mg/dL (0.1-1.5); Blood Urea Nitrogen* 12 mg/dL (5-24); Carbon Dioxide* 35 mmol/L (20-32); Total Protein* 7.6 g/dL (6.0-8.3)
[2022-05-27 14:22] LABS: Glucose* 92 mg/dL (60-115)
[2022-05-27 15:17] LABS: Iron* 119 ug/dL (49-181)
[2022-05-28 03:50] LABS: Lab Add On Test New Spec Needed
[2022-05-28 04:42] LABS: Hepatitis C Virus Antibody* Negative (Negative)
[2022-05-28 22:47] LABS: HIV 1/2/P24 Combo Screen* Negative (Negative)
[2022-05-29 01:42] LABS: Testosterone, Adult Male 318 ng/dL (300-1080)
== END 2022-05-27 15:09 | disposition home or self-care (01) ==
PROVIDERS: PCP Physician Assistant Medical; Visit Provider Physician Assistant Medical
DX: R53.83 Other fatigue (principal); R74.8 Abnormal levels of other serum enzymes
CPT/HCPCS: 80053; 83540; 84403; 84443; 86703; 86803

== ENCOUNTER 2022-06-04 15:35 | Outpatient (CLI) | payer OTHER, MEDICAID, SELFPAY ==
--- OUTSIDE RECORDS SUMMARY | 2022-06-04 15:39 | XMS_ITS | Encounter Summary ---
:1995 Author Organization [facility] Address [address] [place] [address] Care Team Providers Name Role Phone Rob Tillman MD Primary Care Provider Reason for Visit Reason Comments BACK PAIN Encounter Details Date Type Department Care Team Description 01/22/2022 [facility] Neuroscience Matthew Chau MD BACK PAIN Center Neurosurgery/Ortho [address] [place] [address] 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
--- OUTSIDE RECORDS SUMMARY | 2022-06-04 15:39 | XMS_ITS | Encounter Summary ---
:1995 Author Organization [facility] Address [address] [place] [address] Care Team Providers Name Role Phone Rob Tillman MD Primary Care Provider Reason for Visit Reason Comments Questions, Aftercare Encounter Details Date Type Department Care Team Description 09/02/2021 Telephone [facility] Questions, Aftercare [facility] MD Sophie Physical Medicine [address] 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. Makenzie Elias RN 09/08/2021, 3:29 PM Makenzie Elias RN - 09/04/2021 9:54 AM CST I called pt, He states that he is at work and will call us back later. States he has the phone number to call. Makenzie Elias RN 09/04/2021, 9:[address]RA[address]AN Rob Tillman MD - 09/03/2021 5:22 PM [...] hydrated. Rob Tillman MD 09/03/2021, 5:[address] BRAKEMAN Makenzie Elias RN - 09/02/2021 4:39 PM [...] lab. Makenzie Elias RN 09/02/2021, 4:[address] BRA[address]AN Alessia Gil - 09/02/2021 2:19 PM CST Patient calling to speak with Dr Tillman about some GI issues he is having that would possible get him fired. Please call patient to discuss Alessia Gil 09/02/2021, 2:[address] BRAKEMAN documented in this encounter Plan of Treatment Upcoming Encounters Date Type Specialty Care Team Description 06/12/2022 Appointment Urology Raj Castro MD [address] [place] [address] (Wo rk) 09/28/2022 Telemedicine Psychiatry Humera Bush MD [address] [place], [place] [address] (Wo rk) documented as of this encounter Results (ABNORMAL) Basic Metabolic Panel (09/10/2021 4:30 PM CDT) [facility] Signature Sodium 141 136 - 145 09/10/2021 [facility] mmol/L 9:17 PM CDT [facility] Potassium 4.0 3.5 - 5.1 09/10/2021 [facility] mmol/L 9:17 PM CDT [facility] Chloride 103 98 - 109 09/10/20[facility] mmol/L 9:17 PM CDT [facility] CO2 29 20 - 29 09/10/2021 [facility] mmol/L 9:17 PM CDT [facility] Anion Gap 9 7 - 16 09/10/2021 [facility] mmol/L 9:17 PM CDT C[facility] Calcium 10.7 (H) 8.4 - 10.4 09/10/2021 [facility] mg/dL 9:17 PM CDT C[facility]AL [facility] Comment: Low serum albumin may artificia lly lower total calcium, without impacting ionized calcium concentrations. If patie nt has or is at risk for hypoalbuminemia, consider ionized serum calcium to more a ccurately assess calcium status. BUN 12 7 - 26 mg/dL 09/10/2021 9:17 PM [facility] CDT LAB Creatinine 0.97 0.73 - 1.18 09/10/2021 9:17 PM [facility] mg/dL CDT LAB GFR, Estimated >60 >60 09/10/2021 9:17 PM [facility] mL/min/1.73m2 CDT LAB Glucose 92 70 - 100 mg/dL 09/10/2021 9:17 PM [facility] CDT LAB Comment: The given reference range is fo r the fasting state. Non-fasting reference range for glucose is 70 - 180 mg/dL. Hours Fasting 3 09/10/2021 9:17 PM CDT [facility] Specimen Anatomical Collection Method / Collection Time Recei rufus Time (Source) Location / Volume Laterality Blood Venipuncture / 09/10/2021 4:30 09/10/2021 4:30 Unknown PM CDT PM CDT Rob Tillman MD LAB_1 Performing Organization Address City/[facility]/ZIP Code Phon e Number [facility] [address] [address] [facility] [address] [place], [place] [phone], [facility] (ABNORMAL) Complete Blood Count-No Diff (09/10/2021 4:30 PM CDT) P athologist Signature WBC 5.5 3.5 - 10.5 09/10/2021 [facility] x10(9)/L 4:32 PM CDT LAB RBC 4.85 4.32 - 5.72 09/10/2021 [facility] x10(12)/L 4:32 PM CDT LAB Hemoglobin 15.3 13.5 - 17.5 09/10/2021 [facility] g/dL 4:32 PM CDT LAB HCT 42.9 38.8 - 50.0 09/10/2021 [facility] % 4:32 PM CDT LAB MCV 88.5 80.0 - 09/10/2021 [facility] 100.0 fL 4:32 PM CDT LAB MCH 31.5 27.6 - 33.3 09/10/2021 [facility] pg 4:32 PM CDT LAB MCHC 35.7 (H) 31.5 - 35.2 09/10/2021 [facility] g/dL 4:32 PM CDT LAB RDW 11.7 (L) 11.9 - 15.5 09/10/2021 [facility] % 4:32 PM CDT LAB Platelets 238 150 - 450 09/10/2021 [facility] x10(9)/L 4:32 PM CDT LAB Specimen Anatomical Collection Method / Collection Time Recei rufus Time (Source) Location / Volume Laterality Blood Venipuncture / 09/10/2021 4:30 09/10/2021 4:30 Unknown PM CDT PM CDT Rob Tillman MD LAB_1 Performing Organization Address City/[facility]/ZIP Code Phon e Number [facility] [id number] [place] [phone] TSH (09/10/2021 4:30 PM CDT) [facility] gist Method Time Signature TSH, Sensitive 2.17 0.30 - 09/10/2021 [facility] 4.50 9:24 PM CDT CEN[facility]AL [facility] uIU/mL Specimen Anatomical Collection Method / Collection Time Recei rufus Time (Source) Location / Volume Laterality Blood Venipuncture / 09/10/2021 4:30 09/10/2021 4:30 Unknown PM CDT PM CDT Rob Tillman MD LAB_1 Performing Organization Address City/State/ZIP Code Phon e Number [facility] [address] [address] documented in this encounter Visit Diagnoses Diagnosis Spina bifida without hydrocephalus, unsp ecified spinal region (HRC) - Primary documented in this encounter Care Teams Senior Research Engineer Relationship Specialty Start Date End Date Rob Tillman MD PCP - General Physical Medicine and 08/01/19 [address] [facility] [address] documented as of this encounter
--- OUTSIDE RECORDS SUMMARY | 2022-06-04 15:39 | XMS_ITS | Encounter Summary ---
:1995 Author Organization [facility] Address [address] [place] [address] Care Team Providers Name Role Phone Rob Tillman MD Primary Care Provider Encounter Details Date Type Department Care Team Description 05/13/2022 Office Visit [facility], Center at 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 documented as of this encounter Last Filed Vital Signs Vital Sign Reading Time Taken Comments Blood Pressure 135/72 05/13/2022 3:49 PM ROOF SERVICE TECHNICIAN Pulse 82 05/13/2022 3:49 PM ROOF SERVICE TECHNICIAN Temperature 36.6 ??C (97.8 ??F) 05/13/2022 3:49 PM ROOF SERVICE TECHNICIAN Respiratory Rate 18 05/13/2022 3:49 PM ROOF SERVICE TECHNICIAN Oxygen Saturation 100% 05/13/2022 3:49 PM ROOF SERVICE TECHNICIAN Inhaled Oxygen Concentration - - Weight 69.3 kg (152 lb 12.8 oz) 05/13/2022 3:49 PM ROOF SERVICE TECHNICIAN Height - - Body Mass Index 28.87 12/18/2020 2:08 PM CDT documented in this encounter Patient Instructions Patient InstructionsWiIsabel cordoba - 05/13/2022 3:50 PM CST DIAGNOSES: 1. 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 SCW 4:22 PM 05/13/22 SERVICE TECHNICIAN documented in this encounter Progress Notes Wyatt Oneil MD - 05/13/2022 3:50 PM CST This office note has been dictated. [phone] Wyatt Oneil MD SERVICE TECHNICIAN Karen Heath RN - 05/13/2022 3:50 PM CST Completed per provider's orders. Patient sent to OP lab Placed on 1 year waitlist for follow up with Dr. Oneil QOPI: Is patient starting new chemotherapy medications today or in the near future? No Karen Clark RN BSN 05/13/2022 4:28 PM SERVICE TECHNICIAN Wyatt Oneil MD - 05/13/2022 12:00 AM CST NAME: LUCÍA MARTINEZ CSN: [id number] CLINIC NOTE DATE OF SERVICE: 05/13/2022 : 1995 DIAGNOSES: 1.History of stage II nodular-sclerosing Hodgkin lymphoma diagnosed in February 2013 at [facility], manifesting as 6.4 cm mediastinal mass with [...] clinic in [address] [facility]/NICOLE /[id number] SERVICE TECHNICIAN documented in this encounter Plan of Treatment Upcoming Encounters Date Type Specialty Care Team Description 06/12/2022 Appointment Urology Raj Castro MD [address] [place] [phone] (Wo rk) 09/28/2022 Telemedicine Psychiatry Humera Bush MD [address] [place] [address] (Wo rk) documented as of this encounter Procedures Procedure Name Priority Date/Time Associated Comments Diagnosis CBC AND DIFFERENTIAL STAT 05/13/2022 4:26 PM Hodgkin lympho ma, Results for this PANEL ROOF SERVICE TECHNICIAN unspecified, lymph procedure are in nodes of axilla and the resu lts upper limb (HRC) section. COMPLETE BLOOD STAT 05/13/2022 4:26 PM Hodgkin lymphoma, Re sults for this COUNT-W/DIFF ROOF SERVICE TECHNICIAN unspecified, lymph procedure are in nodes of axilla and the resu lts upper limb (HRC) section. TSH, SENSITIVE Routine 05/13/2022 4:26 PM Hodgkin lymphoma, Re sults for this ROOF SERVICE TECHNICIAN unspecified, lymph procedure are in nodes of axilla and the resu lts upper limb (HRC) section. BASIC METABOLIC PANEL STAT 05/13/2022 4:26 PM Hodgkin lymph tony, Results for this ROOF SERVICE TECHNICIAN unspecified, lymph procedure are in nodes of axilla and the resu lts upper limb (HRC) section. ANTITHYROID Routine 05/13/2022 4:26 PM Hodgkin lymphoma, Resu lts for this PEROXIDASE ROOF SERVICE TECHNICIAN unspecified, lymph procedure are in nodes of axilla and the resu lts upper limb (HRC) section. LD TOTAL (LDH) Routine 05/13/2022 4:26 PM Hodgkin lymphoma, Re sults for this ROOF SERVICE TECHNICIAN unspecified, lymph procedure are in nodes of axilla and the resu lts upper limb (HRC) section. ESR Routine 05/13/2022 4:26 PM Hodgkin lymphoma, Resu lts for this ROOF SERVICE TECHNICIAN unspecified, lymph procedure are in nodes of axilla and the resu lts upper limb (HRC) section. documented in this encounter Results (ABNORMAL) Complete Blood Count-W/Diff (05/13/2022 4:26 PM ROOF SERVICE TECHNICIAN) Analysis Performed At [facility] logist Time Signature WBC 4.6 3.5 - 10.5 05/13/2022 [facility] x10(9)/L 4:37 PM [facility] RBC 5.07 4.32 - 05/13/2022 [facility] 5.72 4:37 PM [facility] x10(12)/L Hemoglobin 16.1 13.5 - 05/13/2022 [facility] 17.5 g/dL 4:37 PM [facility] HCT 45.1 38.8 - 05/13/2022 [facility] 50.0 % 4:37 PM [facility] MCV 89.0 80.0 - 05/13/2022 [facility] 100.0 fL 4:37 PM [facility] MCH 31.8 27.6 - 05/13/2022 [facility] 33.3 pg 4:37 PM [facility] MCHC 35.7 (H) 31.5 - 05/13/2022 [facility] 35.2 g/dL 4:37 PM [facility] RDW 12.2 11.9 - 05/13/2022 [facility] 15.5 % 4:37 PM [facility] Platelets 231 150 - 450 05/13/2022 [facility] x10(9)/L 4:37 PM [facility] Automated NRBC 0 <=0 /100 05/13/2022 [facility] WBC 4:37 PM [facility] Neutrophil 2.2 1.7 - 7.0 05/13/2022 [facility] Absolute 10(9)/L 4:37 PM [facility] Lymphocyte 1.6 1.0 - 4.8 05/13/2022 [facility] Absolute 10(9)/L 4:37 PM [facility] Monocytes 0.6 0.2 - 0.9 05/13/2022 [facility] Absolute 10(9)/L 4:37 PM [facility] Eosinophil 0.2 0.0 - 0.5 05/13/2022 [facility] Absolute 10(9)/L 4:37 PM [facility] Basophil 0.1 0.0 - 0.3 05/13/2022 [facility] Absolute 10(9)/L 4:37 PM [facility] Automated Neut 2.2 10(9)/L 05/13/2022 [facility] Count (Prelim) 4:37 PM [facility] Comment: The Instrument Absolute Neutrop hil Count (IANC) is calculated from the automated differential and may differ sl ightly from the manual differential Absolute Neutrophil Count (IANC), if subsequently reported. Immature Gran % 0.0 0.0 - 0.5 % 05/13/2022 4:37 PM ROOF SERVICE TECHNICIAN [facility] Specimen Anatomical Collection Method / Collection Time Recei rufus Time (Source) Location / Volume Laterality Blood Lab OP Venipuncture 05/13/2022 4:26 05/13 4:31 / Unknown PM ROOF SERVICE TECHNICIAN PM ROOF SERVICE TECHNICIAN Wyatt Oneil MD LAB_1 Performing Organization Address [facility]/ZIP Code Phon e Number [address] [address] Thyroperoxidase (TPO) Antibody (05/13/2022 4:26 PM ROOF SERVICE TECHNICIAN) Patholo gist Method Time Signature Thyroperoxidase Ab <1 <=8 IU/ml 05/14/2022 [facility] NERS 12:43 PM CENTRAL LAB ROOF SERVICE TECHNICIAN Specimen Anatomical Collection Method / Collection Time Recei rufus Time (Source) Location / Volume Laterality Blood Lab OP Venipuncture 05/13/2022 4:26 05/13 4:31 / Unknown PM ROOF SERVICE TECHNICIAN PM ROOF SERVICE TECHNICIAN Wyatt Oneil MD LAB_1 Performing Organization Address [facility]/ZIP [facility] Phon e Number [facility] [address] [address] TSH - today (05/13/2022 4:26 PM ROOF SERVICE TECHNICIAN) P athologist Signature TSH, Sensitive 2.81 0.30 - 05/13/2022 [facility] 4.50 5:19 PM [facility] uIU/mL Specimen Anatomical Collection Method / Collection Time Recei rufus Time (Source) Location / Volume Laterality Blood Lab OP Venipuncture 05/13/2022 4:26 05/13 4:31 / Unknown PM ROOF SERVICE TECHNICIAN PM ROOF SERVICE TECHNICIAN Wyatt Oneil MD LAB_1 Performing Organization Address [facility]/ZIP [facility] Phon e Number [address] [address] ESR (Sedimentation Rate) (05/13/2022 4:26 PM ROOF SERVICE TECHNICIAN) Analysis Performed At Patho logist Time Signature Sedimentation Rate 2 0 - 15 05/13/2022 [facility] mm/hr 5:38 PM [facility] Specimen Anatomical Collection Method / Collection Time Recei rufus Time (Source) Location / Volume Laterality Blood Lab OP Venipuncture 05/13/2022 4:26 05/13 4:31 / Unknown PM ROOF SERVICE TECHNICIAN PM ROOF SERVICE TECHNICIAN Wyatt Oneil MD LAB_1 Performing Organization Address [facility] e Number [address] [address] Lactate Dehydrogenase (LDH) (05/13/2022 4:26 PM ROOF SERVICE TECHNICIAN) athologist Signature LD 172 119 - 235 05/13/2022 [facility] U/L 4:55 PM [facility] Specimen Anatomical Collection Method / Collection Time Recei rufus Time (Source) Location / Volume Laterality Blood Lab OP Venipuncture 05/13/2022 4:26 05/13 4:31 / Unknown PM ROOF SERVICE TECHNICIAN PM ROOF SERVICE TECHNICIAN Wyatt Oneil MD LAB_1 Performing Organization Address [facility] e Number [address] [address] Basic Metabolic Panel - STAT (05/13/2022 4:26 PM ROOF SERVICE TECHNICIAN) athologist Signature Sodium 138 136 - 145 05/13/2022 [facility] mmol/L 5:06 PM [facility] Potassium 3.9 3.5 - 5.1 05/13/2022 [facility] mmol/L 5:06 PM [facility] Chloride 100 98 - 109 05/13/2022 [facility] mmol/L 5:06 PM [facility] CO2 28 20 - 29 05/13/2022 [facility] mmol/L 5:06 PM [facility] Anion Gap 10 7 - 16 05/13/2022 [facility] mmol/L 5:06 PM [facility] Calcium 9.9 8.4 - 10.4 05/13/2022 [facility] mg/dL 5:06 PM [facility] BUN 15 7 - 26 05/13/2022 [facility] mg/dL 5:06 PM [facility] Creatinine 0.90 0.73 - 1.18 05/13/2022 [facility] mg/dL 5:06 PM [facility] Glucose 91 70 - 100 05/13/2022 [facility] mg/dL 5:06 PM [facility] Comment: The given reference range is fo r the fasting state. Non-fasting reference range for glucose is 70 - 180 mg/dL. Hours Fasting N/A 05/13/2022 5:06 PM ROOF SERVICE TECHNICIAN [facility] GFR, Estimated >60 >60 mL/min/1.73m2 05/13/2022 5:06 P M ROOF SERVICE TECHNICIAN [facility] Specimen Anatomical Collection Method / Collection Time Recei rufus Time (Source) Location / Volume Laterality Blood Lab OP Venipuncture 05/13/2022 4:26 05/13 4:31 / Unknown PM ROOF SERVICE TECHNICIAN PM ROOF SERVICE TECHNICIAN Wyatt Oneil MD LAB_1 Performing Organization Address City/State/ZIP Code Phon e Number [facility] [address] [place] [address] documented in this encounter Visit Diagnoses Diagnosis Hodgkin lymphoma, unspecified, lymph nod es of axilla and upper limb (HRC) - Primary documented in this encounter Care Teams Photo Technician Relationship Specialty Start Date End Date Rob Tillman MD PCP - General Physical Medicine and 08/01/19 [facility] [place] [address] documented as of this encounter
--- OUTSIDE RECORDS SUMMARY | 2022-06-04 15:39 | XMS_ITS | Encounter Summary ---
:1995 Author Organization [facility] Address [address], [place] [address] Care Team Providers Name Role Phone Rob Tillman MD Primary Care Provider Reason for Visit Reason Comments Rachelle Medication Side Effects Encounter Details Date Type Department Care Team Description 09/02/2021 Telephone [facility] ry Humera Bush Reeve; Medication Side [address] MD Effects [address] [place] [id number] [phone] Social History Tobacco Use Types Packs/Day Years Used Date Smoking Tobacco: Never Smokeless Tobacco: Never Alcohol Use Standard Drinks/Week Comments Yes 0 (1 standard drink = 0.6 oz pure alcoho l) occasional Sex Assigned at Date Recorded 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 He remains unscheduled. Closing encounter. Stcay Leach - 09/24/2021 11:44 AM CDT Left [...] back to schedule. FYI to Dr. Bush. OARDER Humera Bush MD - 09/04/2021 11:13 AM CST Please clarify what time he is taking his Concerta. Let him know that he will need to schedule an appointment to discuss medication changes. I understand his work schedule, is it perhaps possible to have the appointment during 1 of his breaks at work Humera Bush MD 09/04/2021 11:14 AM OARDER Tomeka Adams RN - 09/04/2021 10:25 AM [...] an appt before his hour drive home. [Home Restoration Service Cleaner: If the pt is calling after 3:30pm, was the caller reminded that their call may not be returned until the following day: No Share with caller: If we are not able to get back to you by the end of the day and your symptoms worsen, please contact the Careline at [phone] OR at .] If a prescription is needed, where can we send it? Confirmed. Is it okay to leave a detailed message on your voicemail? No Is there anything else I can help you with today? no OARDER Humera Bush MD - 09/02/2021 4:00 PM CST Noted, agree with the plan Humera Bush MD 09/02/2021 4:00 PM OARDER Tomeka Adams RN - 09/02/2021 3:49 PM CST Spoke w/ pt who reports that he has been having difficulty staying awake at his new job that he started in June. 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 He goes to bed between 9 [...] what Dr. Bush thinks he should do? [Home Restoration Service Cleaner: If the pt is calling after 3:30pm, was the caller reminded that their call may not be returned until the following day: Yes Share with caller: If we are not able to get back to you by the end of the day and your symptoms worsen, please contact the Careline at [phone] OR at .] If a prescription is needed, where can we send it? No: [facility] [Home Restoration Service Cleaner: Please add the requested pharmacy to 'Meds & Orders' ] Is it okay to leave a detailed message on your voicemail? Yes Is there anything else I can help you with today? no OARDER documented in this encounter Plan of Treatment Upcoming Encounters Date Type Specialty Care Team Description 06/12/2022 Appointment Urology Raj Castro MD [address] [place], [place] [address] (Wo rk) 09/28/2022 Telemedicine Psychiatry Humera Bush MD [address] [place], [place] [address] (Wo rk) documented as of this encounter Visit Diagnoses Not on filedocumented in this encounter Care Teams Assistant Counsel Relationship Specialty Start Date End Date Rob Tillman MD PCP - General Physical Medicine and 08/01/19 295 [facility] [place] [address] documented as of this encounter
--- OUTSIDE RECORDS SUMMARY | 2022-06-04 15:39 | XMS_ITS | Encounter Summary ---
:1995 Author Organization [facility] Address [address] [place] [address] Care Team Providers Name Role Phone Rob Tillman MD Primary Care Provider Reason for Visit Reason Comments Refill Encounter Details Date Type Department Care Team Description 10/02/2021 Refill [facility] Psychiat Humera Guerrero MD Refill 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 Will route to clinical esthetician to attempt to schedule patient. Please route back to nursing once scheduled for appointment. Thanks! documented in this encounter Plan of Treatment Upcoming Encounters Date Type Specialty Care Team Description 06/12/2022 Appointment Urology Raj Castro MD [address] [place], [place] [address] (Wo rk) 09/28/2022 Telemedicine Psychiatry Humera Bush MD [address] [place], [place] [address] (Wo rk) documented as of this encounter Visit Diagnoses Not on filedocumented in this encounter Care Teams Charging Board Operator Relationship Specialty Start Date End Date Rob Tillman MD PCP - General Physical Medicine and 08/01/19 295 [facility] [place] [address] documented as of this encounter
--- OUTSIDE RECORDS SUMMARY | 2022-06-04 15:39 | XMS_ITS | Encounter Summary ---
:1995 Author Organization [facility] Address [address] [place] [address] Care Team Providers Name Role Phone Rob Tillman MD Primary Care Provider Reason for Visit Reason Comments Refill Encounter Details Date Type Department Care Team Description 10/14/2021 Refill [facility] Psychiat Humera Guerrero MD Refill 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
--- OUTSIDE RECORDS SUMMARY | 2022-06-04 15:39 | XMS_ITS | Encounter Summary ---
:1995 Author Organization [facility] Address [address] [place] [address] Care Team Providers Name Role Phone Rob Tillman MD Primary Care Provider Reason for Visit Reason Comments Rachelle Encounter Details Date Type Department Care Team Description 11/19/2021 Telephone [facility] Humera Bush MD [place] 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 (also please fill this medication karuna) [Manager Sterile: If the pt is calling after 3:30pm, was the caller reminded that their call may not be returned until the following day: No Share with caller: If we are not able to get back to you by the end of the day and your symptoms worsen, [facility] [phone] OR at .] If a prescription is needed, where can we send it? No: [facility] [Manager Sterile: Please add the requested pharmacy to 'Meds & Orders' ] Is it okay to leave a detailed message on your voicemail? Yes Is there anything else I can help you with today? no documented in this encounter Plan of Treatment Upcoming Encounters Date Type Specialty Care Team Description 06/12/2022 Appointment Urology Raj Castro MD [address] [place], [place] [address] (Wo rk) 09/28/2022 Telemedicine Psychiatry Humera Bush MD [address] [place], [place] [address] (Wo rk) documented as of this encounter Visit Diagnoses Not on filedocumented in this encounter Care Teams Medical Housekeeper Relationship Specialty Start Date End Date Rob Tillman MD PCP - General Physical Medicine and 08/01/19 295 [facility] Rehabilitation [place], [place] [id number] documented as of this encounter
--- OUTSIDE RECORDS SUMMARY | 2022-06-04 15:39 | XMS_ITS | Encounter Summary ---
:1995 Author Organization [facility] Address [address] [address] Care Team Providers Name Role Phone Rob Tillman MD Primary Care Provider Reason for Visit Reason Comments Dme Supply [facility] Encounter Details Date Type Department Care Team Description 08/12/2021 Telephone [facility] Rob Tillman Dme Sup ply ([facility]) [facility] Physical Medicine [address] 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 Rob Tillman MD 08/12/2021, 4:06 PM VISITOR HOME BASE HEAD START Ashanti Sethi - 08/12/2021 10:06 AM CST Printed, filled out if appropriate, given to the Doctor to view/sign. BERTO Velázquez VISITOR HOME BASE HEAD START Abigail Willett - 08/12/2021 9:44 AM CST Images from the original note were not included. Cd fax from [facility] signature Please see the providers right fax folder to review the fax for this TE. Abigail Willett 08/12/2021, 9:44 AM VISITOR HOME BASE HEAD START documented in this encounter Plan of Treatment Upcoming Encounters Date Type Specialty Care Team Description 06/12/2022 Appointment Urology Raj Castro MD [address] [place], [place] [address] (Wo rk) 09/28/2022 Telemedicine Psychiatry Humera Bush MD [address] [place], [place] [address] (Wo rk) documented as of this encounter Visit Diagnoses Not on filedocumented in this encounter Care Teams Pharm Spec Relationship Specialty Start Date End Date Rob Tillman MD PCP - General Physical Medicine and 08/01/19 295 [facility] [place] [place] [address] documented as of this encounter
--- OUTSIDE RECORDS SUMMARY | 2022-06-04 15:39 | XMS_ITS | Encounter Summary ---
:1995 Author [facility] Address [address], [place] [address] Care Team Providers Name Role Phone Rob Tillman MD Primary Care Provider Reason for Visit Reason Comments ERRONEOUS ENTRY Encounter Details Date Type Department Care Team Description 12/25/2021 Telephone [facility] Neuroscience Jian Tillman, ERRONEOUS ENTRY Center Physical Medi cine [address] [facility]. 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 as of this encounter Plan of Treatment Upcoming Encounters Date Type Specialty Care Team Description 06/12/2022 Appointment Urology Raj Castro MD [address] [place], [place] [address] (Wo rk) 09/28/2022 Telemedicine Psychiatry Huemra Bush MD [address] [place], [place] [address] (Wo rk) documented as of this encounter Visit Diagnoses Not on filedocumented in this encounter Care Teams Data Storage Specialist Relationship Specialty Start Date End Date Rob Tillman MD PCP - General Physical Medicine and 08/01/19 295 [facility] [place] [address] documented as of this encounter
--- OUTSIDE RECORDS SUMMARY | 2022-06-04 15:39 | XMS_ITS | Clinical Summary ---
:1995 Author Organization [employer] Address [address] [place] [address] Care Team Providers Name Role Phone Rob [...] for each transition of care or referral. [employer]linify Allergies Active Allergy Reactions Severity Noted Date Comments Adhesive Rash 04/13/2013 Latex Other, see comments 09/12/2002 Precauti on Molds & Smuts Other, see comments 06/06/2012 [place] mo ld- Respiratory Distress Other Swelling 06/02/2012 [...] Neurogenic dysfunction of the urinary bladder 12/19/19 Pelvic floor dysfunction 12/18/2020 Impaired mobility 10/13/2019 ADHD (attention deficit hyperactivity disorder), inatt entive type 08/30/2019 Nonverbal learning disorder 08/30/2019 Alternating esotropia with A pattern, s/p bimedial rec ession 10/05/07, then 09/23/2018 repair consecutive XT with bimedial advancement Overview: Surgery at [facility] - see scanned rec ords Hodgkin lymphoma, unspecified, lymph nodes of axilla a nd upper limb 04/21/2018 Spina bifida 04/21/2018 Attention deficit hyperactivity disorder (ADHD), combi divya type 06/07/2017 Major depressive disorder, single episode, severe 05/28 Mild intermittent asthma 06/03/2006 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 08/26 Encounters Date Type Specialty Care Team Description 06/03/2022 Telephone Endocrinology Nurse, [id number] End APPOINTMEN T REQUEST (Referral for l ow testosterone) 05/13/2022 Office Visit Hematology and Wyatt Oneil l ymphoma, Oncology MD Brina unspecified, ly mph nodes of axilla and upper limb (HRC ) (Primary Dx) 04/17/2022 Lab Visit Laboratory Organic erectil e dysfunction 04/09/2022 Office Visit Urology Raj Castro, Organic er ectile dysfunction (Primary Dx); Neurogenic blad gina 03/31/2022 Refill Psychiatry Humera Bush MD (methylphenidat e); Rachelle 03/27/2022 Telemedicine Psychiatry Humera Bush ADHD (atten tion deficit hyperactivity disorder), inattentive type (HRC) (Primary Dx); MD Isauro Nonverbal learn ing disorder; Major depressiv e disorder, single episode, severe (HRC); Spina bifida, u nspecified hydrocephalus presence, unspecified spinal region (HRC); Anxiety (HRC) from Last 3 Months Immunizations Name Administration Dates Next Due Influenza IIV4 (Quadrivalent) 0.5mL (15158) 06/29/2019 Pfizer (Comirnaty) COVID-19, 12+ Yrs Purple [...] at Date Recorded Male 07/12/2021 3:57 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 Last Filed Vital Signs Vital Sign Reading Time Taken Comments Blood Pressure 135/72 05/13/2022 3:49 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 TEACHER Pulse 82 05/13/2022 3:49 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 TEACHER Temperature 36.6 ??C (97.8 ??F) 05/13/2022 3:49 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 TEACHER Respiratory Rate 18 05/13/2022 3:49 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 TEACHER Oxygen Saturation 100% 05/13/2022 3:49 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 TEACHER Inhaled Oxygen Concentration - - Weight 69.3 kg (152 lb 12.8 oz) 05/13/2022 3:49 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 TEACHER Height 154.9 cm (5' 1) 12/18/2020 2:08 PM CDT Body Mass Index 28.87 12/18/2020 2:08 PM CDT Plan of Treatment Upcoming Encounters Date Type Specialty Care Team Description 06/12/2022 Appointment Urology Raj Castro MD [address] [place], [place] [address] (Wo rk) 09/28/2022 Telemedicine Psychiatry Humera Bush MD [address] [place], [place] [address] (Wo rk) Health Maintenance [...] Hodgkin lymphoma, Re sults for this COUNT-W/DIFF BOOKKEEPING TEACHER unspecified, lymph procedure are in nodes of axilla and the resu lts upper limb (HRC) section. ANTITHYROID Routine 05/13/2022 4:26 PM Hodgkin lymphoma, Resu lts for this PEROXIDASE BOOKKEEPING TEACHER unspecified, lymph procedure are in nodes of axilla and the resu lts upper limb (HRC) section. TSH, SENSITIVE Routine 05/13/2022 4:26 PM Hodgkin lymphoma, Re sults for this BOOKKEEPING TEACHER unspecified, lymph procedure are in nodes of axilla and the resu lts upper limb (HRC) section. ESR Routine 05/13/2022 4:26 PM Hodgkin lymphoma, Resu lts for this BOOKKEEPING TEACHER unspecified, lymph procedure are in nodes of axilla and the resu lts upper limb (HRC) section. LD TOTAL (LDH) Routine 05/13/2022 4:26 PM Hodgkin lymphoma, Re sults for this BOOKKEEPING TEACHER unspecified, lymph procedure are in nodes of axilla and the resu lts upper limb (HRC) section. BASIC METABOLIC PANEL STAT 05/13/2022 4:26 PM Hodgkin lymph tony, Results for this BOOKKEEPING TEACHER unspecified, lymph procedure are in nodes of axilla and the resu lts upper limb (HRC) section. CBC AND DIFFERENTIAL STAT 05/13/2022 4:26 PM Hodgkin lympho ma, Results for this PANEL BOOKKEEPING TEACHER unspecified, lymph procedure are in nodes of [...] (ABNORMAL) Complete Blood Count-W/Diff (05/13/2022 4:26 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 TEACHER) Analysis Performed At Patho logist Time Signature WBC 4.6 3.5 - 10.5 05/13/2022 [facility] x10(9)/L 4:37 PM [facility] RBC 5.07 4.32 - 05/13/2022 [facility] 5.72 4:37 PM [facility] x10(12)/L Hemoglobin 16.1 13.5 - 05/13/2022 [facility] 17.5 g/dL 4:37 PM [facility] HCT 45.1 38.8 - 05/13/2022 [facility] 50.0 % 4:37 PM [facility] MCV 89.0 80.0 - 05/13/2022 [facility] 100.0 fL 4:37 PM [facility] MCH 31.8 27.6 - 05/13/2022 [facility] 33.3 pg 4:37 PM [facility] MCHC 35.7 (H) 31.5 - 05/13/2022 [facility] 35.2 g/dL 4:37 PM [facility] RDW 12.2 11.9 - 05/13/2022 [facility] 15.5 % 4:37 PM [facility] Platelets 231 150 - 450 05/13/2022 [facility] x10(9)/L 4:37 PM [facility] Automated NRBC 0 <=0 /100 05/13/2022 [facility] WBC 4:37 PM [facility] Neutrophil 2.2 1.7 - 7.0 05/13/2022 [facility] Absolute 10(9)/L 4:37 PM [facility] Lymphocyte 1.6 1.0 - 4.8 05/13/2022 [facility] Absolute 10(9)/L 4:37 PM [facility] Monocytes 0.6 0.2 - 0.9 05/13/2022 [facility] Absolute 10(9)/L 4:37 PM [facility] Eosinophil 0.2 0.0 - 0.5 05/13/2022 [facility] Absolute 10(9)/L 4:37 PM [facility] Basophil 0.1 0.0 - 0.3 05/13/2022 [facility] Absolute 10(9)/L 4:37 PM [facility] Automated Neut 2.2 10(9)/L 05/13/2022 [facility] Count (Prelim) 4:37 PM [facility] Comment: The Instrument Absolute Neutrop hil Count (IANC) is calculated from the automated differential and may differ sl ightly from the manual differential Absolute Neutrophil Count (IANC), if subsequently reported. Immature Gran % 0.0 0.0 - 0.5 % 05/13/2022 4:37 PM [facility] Specimen Anatomical Collection Method / Collection Time Recei rufus Time (Source) Location / Volume Laterality Blood Lab OP Venipuncture 05/13/2022 4:26 05/13 4:31 / Unknown 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 TEACHER 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 TEACHER Wyatt Oneil MD LAB_1 Performing Organization Address City/State/ZIP Code Phon e Number [address] [address] TSH - today (05/13/2022 4:26 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 TEACHER) P athologist Signature TSH, Sensitive 2.81 0.30 - 05/13/2022 [facility] 4.50 5:19 PM [facility] uIU/mL Specimen Anatomical Collection Method / Collection Time Recei rufus Time (Source) Location / Volume Laterality Blood Lab OP Venipuncture 05/13/2022 4:26 05/13 4:31 / Unknown 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 TEACHER 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 TEACHER Wyatt Oneil MD LAB_1 Performing Organization Address City/[facility]/ZIP [facility] Phon e Number [facility] [address] [place] [address] Basic Metabolic Panel - STAT (05/13/2022 4:26 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 TEACHER) athologist Signature Sodium 138 136 - 145 05/13/2022 [facility] mmol/L 5:06 PM [facility] Potassium 3.9 3.5 - 5.1 05/13/2022 [facility] mmol/L 5:06 PM [facility] Chloride 100 98 - 109 05/13/2022 [facility] mmol/L 5:06 PM [facility] CO2 28 20 - 29 05/13/2022 [facility] mmol/L 5:06 PM [facility] Anion Gap 10 7 - 16 05/13/2022 [facility] mmol/L 5:06 PM [facility] Calcium 9.9 8.4 - 10.4 05/13/2022 [facility] mg/dL 5:06 PM [facility] BUN 15 7 - 26 05/13/2022 [facility] mg/dL 5:06 PM [facility] Creatinine 0.90 0.73 - 1.18 05/13/2022 [facility] mg/dL 5:06 PM [facility] Glucose 91 70 - 100 05/13/2022 [facility] mg/dL 5:06 PM [facility] Comment: The given reference range is fo r the fasting state. Non-fasting reference range for glucose is 70 - 180 mg/dL. Hours Fasting N/A 05/13/2022 5:06 PM [facility] GFR, Estimated >60 >60 mL/min/1.73m2 05/13/2022 5:06 P M [facility] Specimen Anatomical Collection Method / Collection Time Recei rufus Time (Source) Location / Volume Laterality Blood Lab OP Venipuncture 05/13/2022 4:26 05/13 4:31 / Unknown 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 TEACHER 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 TEACHER Wyatt Oneil MD LAB_1 Performing Organization Address City/[facility]/ZIP Code Phon e Number [address] [address] Thyroperoxidase (TPO) Antibody (05/13/2022 4:26 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 TEACHER) Patholo gist Method Time Signature Thyroperoxidase Ab <1 <=8 IU/ml 05/14/2022 [facility] 12:43 PM CENTRAL LAB BOOKKEEPING TEACHER Specimen Anatomical Collection Method / Collection Time Recei rufus Time (Source) Location / Volume Laterality Blood Lab OP Venipuncture 05/13/2022 4:26 05/13 4:31 / Unknown 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 TEACHER 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 TEACHER Wyatt Oneil MD LAB_1 Performing Organization Address City/[facility]/ZIP Code Phon e Number [facility] [address] [address] Lactate Dehydrogenase (LDH) (05/13/2022 4:26 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 TEACHER) P athologist Signature LD 172 119 - 235 05/13/2022 [facility] U/L 4:55 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 Specimen Anatomical Collection Method / Collection Time Recei rufus Time (Source) Location / Volume Laterality Blood Lab OP Venipuncture 05/13/2022 4:26 05/13 4:31 / Unknown 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 TEACHER 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 TEACHER Wyatt Oneil MD LAB_1 Performing Organization Address City/[facility]/ZIP Code Phon e Number [address] [address] ESR (Sedimentation Rate) (05/13/2022 4:26 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 TEACHER) Analysis Performed At Patho logist Time Signature Sedimentation Rate 2 0 - 15 05/13/2022 [facility] mm/hr 5:38 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 Specimen Anatomical Collection Method / Collection Time Recei rufus Time (Source) Location / Volume Laterality Blood Lab OP Venipuncture 05/13/2022 4:26 05/13 4:31 / Unknown 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 TEACHER 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 TEACHER Wyatt Oneil MD LAB_1 Performing Organization Address City/[facility] Phon e Number [address] [address] (ABNORMAL) Lipid Panel and Direct LDL (If [...] CENTRAL LAB CDT Hours Fasting 0 04/17/2022 [place] [facility] 11:09 AM CDT Specimen Anatomical Collection Method / Collection Time Recei rufus Time (Source) Location / Volume Laterality Blood Venipuncture / 04/17/2022 8:34 04/17/2022 8:38 Unknown AM CDT AM CDT Raj Castro MD LAB_1 Performing Organization Address [facility] Phon e Number [facility]AL LAB [address] [address] [facility] [address] [place] [address], [facility] Testosterone,Adult Males or Individuals on Testosterone Hormone Therapy (04/17/2022 8:34 AM CDT) Analysis Performed At Patho logist Time Signature Testosterone 389 200 - 745 04/17/2022 [facility] ng/dL 11:40 AM CDT CENTRAL LAB Specimen Anatomical Collection Method / Collection Time Recei rufus Time (Source) Location / Volume Laterality Blood Venipuncture / 04/17/2022 8:34 04/17/2022 8:38 Unknown AM CDT AM CDT Raj Castro MD LAB_1 Performing Organization Address [facility] Phon e Number [facility] CENTRAL LAB [address] [address] Hgb A1C (04/17/2022 8:34 AM CDT) Patholo gist Method Time Signature Hemoglobin A1C 4.8 <=5.6 % 04/17/2022 [facility] 11:44 AM CDT CENTRAL LAB Specimen Anatomical Collection Method / Collection Time Recei rufus Time (Source) Location / Volume Laterality Blood Venipuncture / 04/17/2022 8:34 04/17/2022 8:38 Unknown AM CDT AM CDT Raj Castro MD LAB_1 Performing Organization Address City/State/ZIP Code Phon e Number [facility] [address] [place] [address] from Last 3 Months Insurance Payer Benefit Plan Subscriber ID Effective Phone Address Typ e / Group Dates [employer] SELF [id number] 2014-Prese Commercial INSURED nt UCARE UCARE CONNECT [id number] 2021-Prese [phone] Medicare PLUS MEDICARE nt 07 Fly Moran Personal/Family Self 1995 [address] (Home) [address], [place] [address] Care Teams Rn Clinical Relationship Specialty Start Date End Date Rob Tillman MD PCP - General Physical Medicine and 08/01/19 [address] [facility] [place] [address]
--- OUTSIDE RECORDS SUMMARY | 2022-06-04 15:39 | XMS_ITS | Encounter Summary ---
:1995 Author Organization [employer] Address [address] [place] [address] Care Team Providers Name Role Phone Rob Tillman MD Primary Care Provider Encounter Details Date Type Department Care Team Description 11/10/2021 Telemedicine [facility] Bush[facility] inattentive type (Primary Dx); Psychiatry Nonverbal learning disorder 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 Patient did not [...] 06/12/2022 Appointment Urology Raj Castro MD [address] [place], [place] [address] (Wo rk) 09/28/2022 Telemedicine Psychiatry Humera Bush MD [address] [place], [place] [address] (Wo rk) documented as of this encounter Visit Diagnoses Diagnosis ADHD (attention deficit hyperactivity di sorder), inattentive type (HRC) - Primary Attention deficit disorder with hyperact ivity Nonverbal learning disorder documented in this encounter Care Teams Speedometer Mechanic Relationship Specialty Start Date End Date Rbo Tillman MD PCP - General Physical Medicine and 08/01/19 [address] [facility] [place] [address] documented as of this encounter
--- OUTSIDE RECORDS SUMMARY | 2022-06-04 15:39 | XMS_ITS | Encounter Summary ---
:1995 Author Organization [employer] Address [address] [place] [address] Care Team Providers Name Role Phone Rob Tillman MD Primary Care Provider Reason for Visit Reason Comments Rachelle Prior Authorization For Medication Wellbutrin XL 300mg Encounter Details Date Type Department Care Team Description 10/14/[address] [facility] Humera Bush Reeve; Tessy baca Psychiatry Authorization For 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
--- OUTSIDE RECORDS SUMMARY | 2022-06-04 15:39 | XMS_ITS | Encounter Summary ---
:1995 Author Organization [employer] Address [address] [place] [address] Care Team Providers Name Role Phone Rob Tillman MD Primary Care Provider Reason for Visit Reason Onset Date Comments Refill 12/11/2021 [place] 12/11/2021 Encounter Details Date Type Department Care Team Description 12/11/2021 Refill [facility] Humera Bush MD Refill; Reeve 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 documented in this encounter Plan of Treatment Upcoming Encounters Date Type Specialty Care Team Description 06/12/2022 Appointment Urology Raj Castro MD [address] [place] [address] [place] [phone] (Wo rk) 09/28/2022 Telemedicine Psychiatry Humera Bush MD [address] [place], [place] [address] (Wo rk) documented as of this encounter Visit Diagnoses Not on filedocumented in this encounter Care Teams Drywall Worker Relationship Specialty Start Date End Date Rob Tillman MD PCP - General Physical Medicine and 08/01/19 [address] [facility] [place] [address] documented as of this encounter
--- OUTSIDE RECORDS SUMMARY | 2022-06-04 15:39 | XMS_ITS | Encounter Summary ---
:1995 Author Organization [employer] Address [address] [address] Care Team Providers Name Role Phone Rob Tillman MD Primary Care Provider Reason for Visit Reason Onset Date Comments Refill 03/31/2022 methylphenidate Reeve 03/31/2022 Encounter Details Date Type Department Care Team Description 03/31/2022 Refill [facility] Humera Bush, Refill [address] MD (methylphenidate); [address] [place], [place] [address] [phone] Social History Tobacco Use Types Packs/Day Years Used Date Smoking Tobacco: Never Smokeless Tobacco: Never Alcohol Use Standard Drinks/Week Comments Yes 0 (1 standard drink = 0.6 oz pure alcoho l) occasional Sex Assigned at Date Recorded 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 documented in this encounter Plan of Treatment Upcoming Encounters Date Type Specialty Care Team Description 06/12/2022 Appointment Urology Raj Castro MD [address] [place], [place] [address] (Wo rk) 09/28/2022 Telemedicine Psychiatry Humera Bush MD [address] [place], [place] [address] (Wo rk) documented as of this encounter Visit Diagnoses Not on filedocumented in this encounter Care Teams Investigation Specialist Relationship Specialty Start Date End Date Rob Tillman MD PCP - General Physical Medicine and 08/01/19 295 [facility] [place] [address] documented as of this encounter
--- OUTSIDE RECORDS SUMMARY | 2022-06-04 15:39 | XMS_ITS | Encounter Summary ---
:1995 Author Organization [employer] Address [address] [place] [address] Care Team Providers Name Role Phone Rob Tillman MD Primary Care Provider Encounter Details Date Type Department Care Team Description 04/17/2022 Lab Visit [facility] Organic erectile [address] [facility] dysfunction [place], [place] [address] Social History Tobacco Use Types Packs/Day Years Used Date Smoking Tobacco: Never Smokeless Tobacco: Never Alcohol Use Standard Drinks/Week Comments Yes 0 (1 standard drink = 0.6 oz pure alcoho l) occasional Sex Assigned at Date Recorded Male 07/12/2021 3:57 PM CRAYON SAWYER documented as of this encounter Progress Notes Rob Tillman MD - 04/17/2022 8:50 AM CDT Your cholesterol is higher than normal. Please schedule an appointment with your primary care provider to discuss treatment options. Rob Tillman MD 04/20/2022, 12:21 PM documented in this encounter Plan of Treatment Upcoming Encounters Date Type Specialty Care Team Description 06/12/2022 Appointment Urology Raj Castro MD [address] [place] [phone] (Wo rk) 09/28/2022 Telemedicine Psychiatry Humera Bush MD [address] [place] [phone] (Wo rk) documented as of [...] LDL (If Needed) (04/17/2022 8:34 AM CDT) [facility] gist Method Time Signature Cholesterol 210 (H) 0 - 199 04/17/2022 [facility] mg/dL 11:09 AM CENTRAL LAB CDT Triglyceride [...] CENTRAL LAB CDT Hours Fasting 0 04/17/2022 [place] [facility] 11:09 AM CDT Specimen Anatomical Collection Method / Collection Time Recei rufus Time (Source) Location / Volume Laterality Blood Venipuncture / 04/17/2022 8:34 04/17/2022 8:38 Unknown AM CDT AM CDT Raj Castro MD LAB_1 Performing Organization Address City/State/ZIP Code Phon e Number [facility] CENTRAL LAB [address] [address] [facility] [address] [place], [place] [phone], [facility] Hgb A1C (04/17/2022 8:34 AM CDT) Patholo gist Method Time Signature Hemoglobin A1C 4.8 <=5.6 % 04/17/2022 [facility] 11:44 AM CDT CENTRAL LAB Specimen Anatomical Collection Method / Collection Time Recei rufus Time (Source) Location / Volume Laterality Blood Venipuncture / 04/17/2022 8:34 04/17/2022 8:38 Unknown AM CDT AM CDT Raj Castro MD LAB_1 Performing Organization Address City/[facility]/ZIP Code Phon e Number [facility] CENTRAL LAB [address] [address] Testosterone,Adult Males or Individuals on Testosterone Hormone [...] Raj Castro MD LAB_1 Performing Organization Address City/[facility] Code Phon e Number [facility] CENTRAL LAB [address] [address] documented in this encounter Visit Diagnoses Diagnosis 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
--- OUTSIDE RECORDS SUMMARY | 2022-06-04 15:39 | XMS_ITS | Encounter Summary ---
:1995 Author Organization [employer] Address [address] [place] [address] Care Team Providers Name Role Phone Rob Tillman MD Primary Care Provider Reason for Visit Reason Comments Reeve FATIGUE Encounter Details Date Type Department Care Team Description 11/06/2021 Telephone Man [facility] Humera Guerrero MD Reeve; FATIGUE 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
--- OUTSIDE RECORDS SUMMARY | 2022-06-04 15:39 | XMS_ITS | Encounter Summary ---
:1995 Author Organization [employer] Address [address] [place] [address] Care Team Providers Name Role Phone Rob Tillman MD Primary Care Provider Reason for Visit Reason Comments APPOINTMENT REQUEST Referral for low testosteron e Encounter Details Date Type Department Care Team Description 06/03/2022 Telephone [facility] 3800 Nurse, [id number] End APPOINTMENT REQUEST Endocrinology [address] (Referral for low [address] [place] [address] testosterone) [facility]. 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 documented as of this encounter Nursing Notes Hope Cantrell - 06/03/2022 9:11 AM CST Faxed referral rec'd from [facility] low testosterone DECLINED Due to limited access are not accepting outside referrals at this time and please refer [facility] [phone] documented in this encounter Plan of Treatment Upcoming Encounters Date Type Specialty Care Team Description 06/12/2022 Appointment Urology Raj Castro MD [facility] [address] [place], [place] [address] (Wo rk) 09/28/2022 Telemedicine Psychiatry Humera Bush MD [address] [place], [place] [address] (Wo rk) documented as of this encounter Visit Diagnoses Not on filedocumented in this encounter Care Teams Campus Safety Officer Relationship Specialty Start Date End Date Rob Tillman MD PCP - General Physical Medicine and 08/01/[address] [place] [address] [place] [address] documented as of this encounter
--- OUTSIDE RECORDS SUMMARY | 2022-06-04 15:39 | XMS_ITS | Encounter Summary ---
:1995 Author Organization [employer] Address [address] [place] [address] Care Team Providers Name Role Phone Rob Tillman MD Primary Care Provider Encounter Details Date Type Department Care Team Description 03/27/2022 Telemedicine [facility] Humera Bush, [facility]), inattentive type (HRC) (Primary Dx); Psychiatry Nonverbal learning disorder; 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 He currently is not working at all. [...] 06/12/2022 Appointment Urology Raj Castro MD [address] [place], [place] [address] (Wo rk) 09/28/2022 Telemedicine Psychiatry Humera Bush MD [address] [place], [place] [address] (Wo rk) documented as [...] unspecified documented in this encounter Care Teams Copier Technician Relationship Specialty Start Date End Date Rob Tillman MD PCP - General Physical Medicine and 08/01/19 295 [facility] [place] [address] documented as of this encounter
--- OUTSIDE RECORDS SUMMARY | 2022-06-04 15:39 | XMS_ITS | Encounter Summary ---
:1995 Author Organization [employer] Address [address] [place] [address] Care Team Providers Name Role Phone Rob Tillman MD Primary Care Provider Encounter Details Date Type Department Care Team Description 12/11/2021 Telemedicine [facility] Humera Bush, [facility]), inattentive type (Primary Dx); Psychiatry Nonverbal learning disorder; 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 He tells me that he ended that [...] friends Education: N/A Therapy: Supportive Other Services: [facility] , vocational rehab Mental Status Exam: Fly [...] in place. I asked him to call [facility] to get a mental health registered nurse hh case manager in place and then to ask for an [facility] worker. I suggested he recontact is vocational [...] Appointment Urology Raj Castro MD [address] [place], [place] [address] (Jeannie osei) 09/28/2022 Telemedicine Psychiatry Humera Bush MD [address] [place], [place] [address] (Jeannie osei) documented as [...] unspecified documented in this encounter Care Teams Tube And Manifold Builder Relationship Specialty Start Date End Date Rob Tillman MD PCP - General Physical Medicine and 08/01/19 295 [place] [address] documented as of this encounter
--- OUTSIDE RECORDS SUMMARY | 2022-06-04 15:39 | XMS_ITS | Encounter Summary ---
:1995 Author Organization [employer] Address [address], [place] [address] Care Team Providers Name Role Phone Rob Tillman MD Primary Care Provider Encounter Details Date Type Department Care Team Description 09/10/2021 Lab Visit [facility] Spina bifida without [address] [facility] hydrocephalus, unspecified [place], [place] [address] spinal region (HRC) [phone] Social History Tobacco Use Types Packs/Day Years Used Date Smoking Tobacco: Never Smokeless Tobacco: Never Alcohol Use Standard Drinks/Week Comments Yes 0 (1 standard drink = 0.6 oz pure alcoho l) occasional Sex Assigned at Date Recorded 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 Plan of Treatment Upcoming Encounters Date Type Specialty Care Team Description 06/12/2022 Appointment Urology Raj Castro MD [address] [place], [place] [address] (Wo rk) 09/28/2022 Telemedicine Psychiatry Humera Bush MD [address] [place], [place] [address] (Wo rk) documented as [...] (09/10/2021 4:30 PM CDT) Analysis Performed At [facility] logist Time Signature Sodium 141 136 - 145 09/10/2021 [facility] mmol/L 9:17 PM CDT CENTRAL LAB Potassium 4.0 3.5 - 5.1 09/10/2021 [facility] mmol/L 9:17 PM CDT CENTRAL LAB Chloride 103 98 - 109 09/10/2021 [facility] mmol/L 9:17 PM CDT CEN[facility]AL LAB CO2 29 20 - 29 09/10/2021 [facility] mmol/L 9:17 PM CDT C[facility]AL LAB Anion Gap 9 7 - 16 09/10/2021 [facility] mmol/L 9:17 PM CDT C[facility]AL LAB Calcium 10.7 (H) 8.4 - 10.4 09/10/2021 [facility] mg/dL 9:17 PM CDT CENTRAL LAB Comment: Low serum albumin may artificia lly lower total calcium, without impacting ionized calcium concentrations. If patie nt has or is at risk for hypoalbuminemia, consider ionized serum calcium to more a ccurately assess calcium status. BUN 12 7 - 26 mg/dL 09/10/2021 9:17 PM [facility] CENTR[facility] CDT LAB Creatinine 0.97 0.73 - 1.18 09/10/2021 9:17 PM [facility] mg/dL CDT LAB GFR, Estimated >60 >60 09/10/2021 9:17 PM [facility] CENTRAL mL/min/1.73m2 CDT LAB Glucose 92 70 - 100 mg/dL 09/10/2021 9:17 PM [facility] CENTRAL CDT LAB Comment: The given reference range is fo r the fasting state. Non-fasting reference range for glucose is 70 - 180 mg/dL. Hours Fasting 3 09/10/2021 9:17 PM CDT [facility] Specimen Anatomical Collection Method / Collection Time Recei rufus Time (Source) Location / Volume Laterality Blood Venipuncture / 09/10/2021 4:30 09/10/2021 4:30 Unknown PM CDT PM CDT Rob Tillman MD LAB_1 Performing Organization Address City/[facility] Phon e Number [facility] [address] [address] [facility] [address] [place] [phone] (ABNORMAL) Complete Blood Count-No Diff (09/10/2021 4:30 PM CDT) P athologist Signature WBC 5.5 3.5 - 10.5 09/10/2021 [facility] x10(9)/L 4:32 PM CDT LAB RBC 4.85 4.32 - 5.72 09/10/2021 [facility] x10(12)/L 4:32 PM CDT LAB Hemoglobin 15.3 13.5 - 17.5 09/10/2021 [place] g/dL 4:32 PM CDT LAB HCT 42.9 38.8 - 50.0 09/10/2021 [facility] % 4:32 PM CDT LAB MCV 88.5 80.0 - 09/10/2021 [facility] 100.0 fL 4:32 PM CDT LAB MCH 31.5 27.6 - 33.3 09/10/2021 [facility] pg 4:32 PM CDT LAB MCHC 35.7 (H) 31.5 - 35.2 09/10/2021 [facility] g/dL 4:32 PM CDT LAB RDW 11.7 (L) 11.9 - 15.5 09/10/2021 [facility] % 4:32 PM CDT LAB Platelets 238 150 - 450 09/10/2021 [facility] x10(9)/L 4:32 PM CDT LAB Specimen Anatomical Collection Method / Collection Time Recei rufus Time (Source) Location / Volume Laterality Blood Venipuncture / 09/10/2021 4:30 09/10/2021 4:30 Unknown PM CDT PM CDT Rob Tillman MD LAB_1 Performing Organization Address City/State/ZIP Code Phon e Number [facility] [address] [place] [phone] TSH (09/10/2021 4:30 PM CDT) [facility] gist Method Time Signature TSH, Sensitive 2.17 0.30 - 09/10/2021 [facility] 4.50 9:24 PM CDT CENTRAL LAB uIU/mL Specimen Anatomical Collection Method / Collection Time Recei rufus Time (Source) Location / Volume Laterality Blood Venipuncture / 09/10/2021 4:30 09/10/2021 4:30 Unknown PM CDT PM CDT Rob Tillman MD LAB_1 Performing Organization Address City/[facility]/ZIP Code Phon e Number [facility] [address] [address] documented in this encounter Visit Diagnoses Diagnosis Spina bifida without hydrocephalus, unsp ecified spinal region (HRC) documented in this encounter Care Teams National Sales Trainer Relationship Specialty Start Date End Date Rob Tillman MD PCP - General Physical Medicine and 08/01/19 [facility] [place], [place] [phone] documented as of this encounter
--- OUTSIDE RECORDS SUMMARY | 2022-06-04 15:39 | XMS_ITS | Encounter Summary ---
:1995 Author Organization [employer] Address [address] [place] [address] Care Team Providers Name Role Phone Rob Tillman MD Primary Care Provider Encounter Details Date Type Department Care Team Description 09/29/2021 Telephone Specialty Center 435 Raj Castro MD U[facility] [address] 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
--- OUTSIDE RECORDS SUMMARY | 2022-06-04 15:39 | XMS_ITS | Encounter Summary ---
:1995 Author Organization [facility] Address [address] [address] Care Team Providers Name Role Phone Rob Tillman MD Primary Care Provider Reason for Visit Reason Comments RESULTS, X-RAY [facility] XR Scoli osis 02/10/22 Encounter Details Date Type Department Care Team Description 02/13/2022 [facility] MD Sophie ([facility] Physical Medicine [address] XR Scoliosis 02/10/22) [address] 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 Tillman 's desk/box to view/sign. BERTO Velázquez 02/13/2022 2:17 PM Abigail Willett 02/13/2022 1:44 PM CDT Recd written report from [facility] XR Scoliosis 02/10/22 Please see the providers right fax folder to review the fax for this TE. Abigail Willett 02/13/2022, 1:44 PM documented in this encounter Plan of Treatment Upcoming Encounters Date Type Specialty Care Team Description 06/12/2022 Appointment Urology Raj Castro MD [address] [place], [place] [address] (Wo rk) 09/28/2022 Telemedicine Psychiatry Humera Bush MD [address] [place], [place] [address] (Wo rk) documented as of this encounter Visit Diagnoses Not on filedocumented in this encounter Care Teams Bit And Shank Department Supervisor Relationship Specialty Start Date End Date Rob Tillman MD PCP - General Physical Medicine and 08/01/19 295 [facility] [place] [address] documented as of this encounter
--- OUTSIDE RECORDS SUMMARY | 2022-06-04 15:39 | XMS_ITS | Encounter Summary ---
:1995 Author Organization [employer] Address [address] [place] [address] Care Team Providers Name Role Phone Rob Tillman MD Primary Care Provider Reason for Visit Reason Comments CONSULT ED Encounter Details Date Type Department Care Team Description 04/09/2022 Office Visit Specialty Center Raj Castro Org anic erectile dysfunction (Primary Dx); 435 [facility] Neurogenic bladder 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 The nuclear worker technician can then see how the blood [...] Vacuum Erection Device Vacuum Erection Device National [place] of Diabetes and Digestive and Kidney Diseases, [...] simplest kind of implant consists of 2 knqc-hb-udum rods that are most often made of silicone. These silicone rods give the man's penis the firmness needed to have sex. The implant can be bent downward for peeing or upward for sex. Inflatable Implant Penile Pump Implant - Inflatable Image ?? 2002 [employer]. With an inflatable implant, fluid-filled cylinders are [...] responsible for your urologic care at [facility]. For Xray, CT test, and Ultrasound results, [...] you! Get Cost of Care Estimates - [phone] The health insurance marketplace has changed dramatically in the last few years. Our cost of care service will provide estimates over the phone for treatments or procedures billed through [facility]. To receive a cost estimate, simply call [phone] during regular business hours. If you have [...] software. Please excuse any typographical errors in rn on site Subjective Fly Moran is a 26 y.o. [...] Rash Molds & Smuts Other, see comments [place] mold- Respiratory Distress Other Swelling Spider Venom: [...] 06/12/2022 Appointment Urology Raj Castro MD [address] [place], [place] [address] (Wo rk) 09/28/2022 Telemedicine Psychiatry Humera Bush MD [address] [place], [place] [address] (Wo rk) documented as [...] CENTRAL LAB CDT Hours Fasting 0 04/17/2022 [facility] 11:09 AM CDT Specimen Anatomical Collection Method / Collection Time Recei rufus Time (Source) Location / Volume Laterality Blood Venipuncture / 04/17/2022 8:34 04/17/2022 8:38 Unknown AM CDT AM CDT Raj Castro MD LAB_1 Performing Organization Address City/[facility] Phon e Number [facility] [address] [address] [facility] [address] [place] [address] Hgb A1C (04/17/2022 8:34 AM CDT) [facility] Method Time Signature Hemoglobin A1C 4.8 <=5.6 % 04/17/2022 [facility] 11:44 AM CDT CENTRAL LAB Specimen Anatomical Collection Method / Collection Time Recei rufus Time (Source) Location / Volume Laterality Blood Venipuncture / 04/17/2022 8:34 04/17/2022 8:38 Unknown AM CDT AM CDT Raj Castro MD LAB_1 Performing Organization Address City/[facility] Phon e Number [facility] LAB [address] [address] Testosterone,Adult Males or Individuals on Testosterone Hormone Therapy (04/17/2022 8:34 AM CDT) Analysis Performed At Patho logist Time Signature Testosterone 389 200 - 745 04/17/2022 [facility] ng/dL 11:40 AM CDT CENTRAL LAB Specimen Anatomical Collection Method / Collection Time Recei rufus Time (Source) Location / Volume Laterality Blood Venipuncture / 04/17/2022 8:34 04/17/2022 8:38 Unknown AM CDT AM CDT Raj Castro MD LAB_1 Performing Organization Address City/State/ZIP Code Phon e Number [employer] [facility] [address] [phone] documented in this encounter Visit Diagnoses Diagnosis 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
--- OUTSIDE RECORDS SUMMARY | 2022-06-04 15:40 | XMS_ITS | Encounter Summary ---
:1995 Author Organization [facility] Address [address] [place] [address] Care Team Providers Name Role Phone Rob Tillman MD Primary Care Provider Reason for Visit Reason Comments Dme Supply [facility]- Letter/ Certifica te of Medical Necessity [facility] Encounter Details Date Type Department Care Team Description 02/27/2021 Telephone [facility] Rob Tillman Dme Supply ([facility]- [facility] MD Sophie Letter/ Certificate of Physical Medicine [address] Medical Necessity [address] 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 Rob Tillman MD 03/12/2021, 3:17 PM Beverley Oliver - 03/04/2021 2:20 PM CDT Printed and placed on providers desk Karuna Woods RN - 02/27/2021 12:05 PM CDT CLEARANCE COORDINATOR: please print Annual Greenhouse Manager Letter/Certificate of Medial Necessity form and place in provider in box. Karuna Woods RN Jadon Chua - 02/27/2021 11:28 AM CDT Images from the original note were not included. Rec'd fax from [facility] with RX- Letter/ Certificate of Medical Necessity to [employer] Fax placed in Providers Right[employer]ax Folder Jadon Chua 02/27/2021, 11:29 AM documented in this encounter Plan of Treatment Upcoming Encounters Date Type Specialty Care Team Description 06/12/2022 Appointment Urology Raj Castro MD [address] [place], [place] [address] (Wo rk) 09/28/2022 Telemedicine Psychiatry Humera Bush MD [address] [place], [place] [address] (Wo rk) documented as of this encounter Visit Diagnoses Not on filedocumented in this encounter Care Teams Oil Spreader Operator Relationship Specialty Start Date End Date Rob Tillman MD PCP - General Physical Medicine and 08/01/19 295 [place] [address] documented as of this encounter
--- OUTSIDE RECORDS SUMMARY | 2022-06-04 15:40 | XMS_ITS | Encounter Summary ---
:1995 Author Organization [employer] Address [address] [facility] [place] [place] [address] Care Team Providers Name Role Phone Rob Tillman MD Primary Care Provider Reason for Visit Reason Comments Rachelle Prior Authorization Request Encounter Details Date Type Department Care Team Description 04/02/[address] [facility] Humera Bush Reeve; Tessy baca Psychiatry Authorization Request 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 Charisma Lloyd LPN - 04/02/2021 4:40 PM CDT Spoke with [facility] and scripts were transferred to [facility]. Spoke with [facility] and they will contact PR to see if it is just needing NDC # and NPI # updated since the transfer. Mint Machine Operator unable to see where additional PA is needed. Pharmacist Urban will return call if needing anything more from Dr. Bush's office. documented in this encounter Plan of Treatment Upcoming Encounters Date Type Specialty Care Team Description 06/12/2022 Appointment Urology Raj Castro MD [address] [place], [place] [address] (Wo rk) 09/28/2022 Telemedicine Psychiatry Humera Bush MD [address] [place], [place] [address] (Wo rk) documented as of this encounter Visit Diagnoses Not on filedocumented in this encounter Care Teams Gaming Cage Cashier Relationship Specialty Start Date End Date Rob Tillman MD PCP - General Physical Medicine and 08/01/19 295 [facility] Rehabilitation [place], [place] [id number] documented as of this encounter
--- OUTSIDE RECORDS SUMMARY | 2022-06-04 15:40 | XMS_ITS | Encounter Summary ---
:1995 Author Organization [employer] Address [address] [place] [address] Care Team Providers Name Role Phone Rob Tillman MD Primary Care Provider Reason for Visit Reason Comments Rachelle Prior Authorization For Medication Encounter Details Date Type Department Care Team Description 07/22/2021 Telephone [facility] Humera Bush Reeve; Tessy baca Psychiatry Authorization For 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 PA for methylphenidate ER (Concerta) 54mg tabs approved from 07/29/21-07/29/22. T SERVICES ASSISTANT Tomeka Adams RN - 07/22/2021 1:57 PM CST Rec'd fax that formulary exception/PA is needed for Concerta 54 mg tabs. PA initiated. T SERVICES ASSISTANT documented in this encounter Plan of Treatment Upcoming Encounters Date Type Specialty Care Team Description 06/12/2022 Appointment Urology Raj Castro MD [address] [place], [place] [address] (Wo rk) 09/28/2022 Telemedicine Psychiatry Humera Bush MD [address] [place], [place] [address] (Wo rk) documented as of this encounter Visit Diagnoses Not on filedocumented in this encounter Care Teams Comsec Manager Relationship Specialty Start Date End Date Rob Tillman MD PCP - General Physical Medicine and 08/01/19 [address] [facility] [place] [address] documented as of this encounter
--- OUTSIDE RECORDS SUMMARY | 2022-06-04 15:40 | XMS_ITS | Encounter Summary ---
:1995 Author Organization [facility] Address [address] [address] Care Team Providers Name Role Phone Rob Tillman MD Primary Care Provider Reason for Visit Reason Comments Dme Supply Handi- rehab accessories Encounter Details Date Type Department Care Team Description 01/31/2021 [facility] Dme Supply ([facility]- [facility] [place] MD [facility] re[facility] accessories) Physical Medicine [address] 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 Sent to scanning, Thank you. Josias Gee 02/03/2021, 4:05 PM Rob Tillman MD - 02/03/2021 3:11 PM CDT Form completed, given to clinical program director for faxing. Rob Tillman MD 02/03/2021, 3:11 [...] 06/12/2022 Appointment Urology Raj Castro MD [address] [place], [place] [address] (Wo rk) 09/28/2022 Telemedicine Psychiatry Humera Bush MD [address] [place], [place] [address] (Wo rk) documented as of this encounter Visit Diagnoses Not on filedocumented in this encounter Care Teams Cook Helper Preserves Relationship Specialty Start Date End Date Rob Tillman MD PCP - General Physical Medicine and 08/01/19 [address] [facility] [place] [address] documented as of this encounter
--- OUTSIDE RECORDS SUMMARY | 2022-06-04 15:40 | XMS_ITS | Encounter Summary ---
:1995 Author Organization [employer] Address [address], [place] [address] Care Team Providers Name Role Phone Rob Tillman MD Primary Care Provider Reason for Visit Reason Onset Date Comments Reeve 03/06/2021 Medication Request 03/06/2021 concerta Encounter Details Date Type Department Care Team Description 03/06/2021 Refill [facility] Psychiat ry Humera Bush Reeve; Medication [address] MD Request (concerta) [address] [place] [phone] Social History Tobacco Use Types Packs/Day Years Used Date Smoking Tobacco: Never Smokeless Tobacco: Never Alcohol Use Standard Drinks/Week Comments Yes 0 (1 standard drink = 0.6 oz pure alcoho l) occasional Sex Assigned at Date Recorded 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 encounter Nursing Notes Norma Ramos RN - 03/11/2021 12:43 PM CDT Medication: Concerta 54 mg tablet #90 (90 day supply) Last filled per [place]-BUILD[place] SERVICES ENGINEER: 12/15/20 Last visit: 03/07/21 Return to clinic: [...] 06/12/2022 Appointment Urology Raj Castro MD [address] [place], [place] [address] (Wo rk) 09/28/2022 Telemedicine Psychiatry Humera Bush MD [address] [place], [place] [address] (Wo rk) documented as of this encounter Visit Diagnoses Not on filedocumented in this encounter Care Teams Research Chemist Relationship Specialty Start Date End Date Rob Tillman MD PCP - General Physical Medicine and 08/01/19 [address] [facility] [place] [address] documented as of this encounter
--- OUTSIDE RECORDS SUMMARY | 2022-06-04 15:40 | XMS_ITS | Encounter Summary ---
:1995 Author Organization [employer] Address [address] [place] [address] Care Team Providers Name Role Phone Rob Tillman MD Primary Care Provider Encounter Details Date Type Department Care Team Description 10/07/2020 Telemedicine [facility]era Bush[facility] inattentive type (Primary Dx); Psychiatry Nonverbal learning disorder; 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 He is working with an [employer] worker and now is working with a community-based company [employer] for independent supported housing. He feels like his has been very stable, he is organized. Momconcurs that things are going very well. They recently took a trip to [facility] and were able to leave Fly home [...] Description 06/12/2022 Appointment Urology Raj Castro MD [address] [place] [phone] (Wo rk) 09/28/2022 Telemedicine Psychiatry Humera Bush MD [address] [place], [place] [address] (Wo rk) documented as [...] unspecified documented in this encounter Care Teams Trauma Coordinator Relationship Specialty Start Date End Date Rob Tillman MD PCP - General Physical Medicine and 08/01/[address] [place] [address] [place] [address] documented as of this encounter
--- OUTSIDE RECORDS SUMMARY | 2022-06-04 15:40 | XMS_ITS | Encounter Summary ---
:1995 Author Organization [employer] Address [address] [place] [address] Care Team Providers Name Role Phone Rob Tillman MD Primary Care Provider Reason for Referral Procedure/Equipment (Routine) - Closed Specialty Diagnoses / Procedures Referred By Contact Refer red To Contact Diagnoses Neurogenic dysfunction of the urinary bladder Pelvic floor dysfunction [facility] Physical Therapy [address] [place] [address]. [place] [address] Referral ID Status Reason Start Date Expiration Date Visits Requ ested Visits Authorized [id number] Closed 02/12/2021 05/14/2022 20 20 Scheduling Instructions . Reason for Visit Reason Comments Pelvic Health Procedure/Equipment (Routine) - Closed Specialty Diagnoses / Procedures Referred By Contact Refer red To Contact Diagnoses Neurogenic dysfunction of the urinary bladder Pelvic floor dysfunction [facility] Physical Therapy [address] [place] [address]. [place] [phone] Referral ID Status Reason Start Date Expiration Date Visits Requ ested Visits Authorized [id number] Closed 02/12/2021 05/14/2022 20 20 Encounter Details Date Type Department Care Team Description 02/12/2021 Office Visit [facility] Candie Smith, PT Neurogenic dysfunction of the urinary bl adder; PHYSICAL THERAPY [address] [place] [address] Pelvic floor dysfunction [address] [place] [address]. 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. 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
--- OUTSIDE RECORDS SUMMARY | 2022-06-04 15:40 | XMS_ITS | Encounter Summary ---
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 Occupational profile/history: expanded review of [...] 06/12/2022 Appointment Urology Raj Castro MD [address] [place], [place] [address] (Wo rk) 09/28/2022 Telemedicine Psychiatry Humera Bush MD [address] [place], [place] [address] (Wo rk) documented as of this encounter Visit Diagnoses Diagnosis Spina bifida of lumbar region with hydro cephalus (HRC) - Primary Impaired mobility Other ill-defined conditions Activity of daily living alteration Debility, unspecified documented in this encounter Care Teams Skilled Helper Relationship Specialty Start Date End Date Rob Tillman MD PCP - General Physical Medicine and 08/01/19 295 [facility] [place] [address] documented as of this encounter
--- OUTSIDE RECORDS SUMMARY | 2022-06-04 15:40 | XMS_ITS | Encounter Summary ---
:1995 Author Organization [employer] Address [address] [place] [address] Care Team Providers Name Role Phone Rob Tillman MD Primary Care Provider Reason for Visit Reason Comments Refill Encounter Details Date Type Department Care Team Description 07/24/2021 Refill [facility] Psychiat Humera Guerrero MD Refill 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 CTURES ENGINEER documented in this encounter Plan of Treatment Upcoming Encounters Date Type Specialty Care Team Description 06/12/2022 Appointment Urology Raj Castro MD [address] [place] [phone] (Wo rk) 09/28/2022 Telemedicine Psychiatry Humera Bush MD [address] [place], [place] [address] (Wo rk) documented as of this encounter Visit Diagnoses Not on filedocumented in this encounter Care Teams Compounder Helper Relationship Specialty Start Date End Date Rob Tillman MD PCP - General Physical Medicine and 08/01/[address] [place] [address] [place] [address] documented as of this encounter
--- OUTSIDE RECORDS SUMMARY | 2022-06-04 15:40 | XMS_ITS | Encounter Summary ---
:1995 Author Organization [facility] Address [address] [place] [address] Care Team Providers Name Role Phone Rob Tillman MD Primary Care Provider Encounter Details Date Type Department Care Team Description 05/06/2021 Lab Visit [facility] Hodgk in lymphoma, Laboratory unspecified, lymph nodes [address] [facility] [place] [address] ([facility]) [phone] Social History Tobacco Use Types Packs/Day Years Used Date Smoking Tobacco: Never Smokeless Tobacco: Never Alcohol Use Standard Drinks/Week Comments Yes 0 (1 standard drink = 0.6 oz pure alcoho l) occasional Sex Assigned at Date Recorded 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 Wyatt Oneil MD SEMAKER documented in this encounter Plan of Treatment Upcoming Encounters Date Type Specialty Care Team Description 06/12/2022 Appointment Urology Raj Castro MD [address] [place] [phone] (Wo rk) 09/28/2022 Telemedicine Psychiatry Humera Bush MD [address] [place] [phone] (Wo rk) documented as of this encounter Procedures Procedure Name Priority Date/Time Associated Comments Diagnosis CBC AND DIFFERENTIAL STAT 05/06/2021 11:40 Hodgkin lymphoma , Results for this PANEL AM CHEESEMAKER unspecified, lymph procedure are in nodes of axilla and the resu lts upper limb (HRC) section. COMPLETE BLOOD STAT 05/06/2021 11:40 Hodgkin lymphoma, Resu lts for this COUNT-W/DIFF AM CHEESEMAKER unspecified, lymph procedure are in nodes of axilla and the resu lts upper limb (HRC) section. LIVER PANEL(HEPATIC STAT 05/06/2021 11:40 Hodgkin lymphoma, Results for this FUNCTION PANEL) AM CHEESEMAKER unspecified, lymph proced ure are in nodes of axilla and the resu lts upper limb (HRC) section. TSH, SENSITIVE Routine 05/06/2021 11:40 Hodgkin lymphoma, Resu lts for this AM CHEESEMAKER unspecified, lymph procedure are in nodes of axilla and the resu lts upper limb (HRC) section. BASIC METABOLIC PANEL STAT 05/06/2021 11:40 Hodgkin lymphom a, Results for this AM CHEESEMAKER unspecified, lymph procedure are in nodes of axilla and the resu lts upper limb (HRC) section. documented in this encounter Results (ABNORMAL) Complete Blood Count-W/Diff (05/06/2021 11:40 AM CHEESEMAKER) Analysis Performed At Patho logist Time Signature WBC 4.9 3.5 - 10.5 05/06/2021 [facility] x10(9)/L 11:54 AM [facility] RBC 5.31 4.32 - 05/06/2021 [facility] 5.72 11:54 AM [facility] x10(12)/L Hemoglobin 16.8 13.5 - 05/06/2021 [facility] 17.5 g/dL 11:54 AM [facility] HCT 47.0 38.8 - 05/06/2021 [facility] 50.0 % 11:54 AM [facility] MCV 88.5 80.0 - 05/06/2021 [facility] 100.0 fL 11:54 AM [facility] MCH 31.6 27.6 - 05/06/2021 [facility] 33.3 pg 11:54 AM [facility] MCHC 35.7 (H) 31.5 - 05/06/2021 [facility] 35.2 g/dL 11:54 AM [facility] RDW 12.2 11.9 - 05/06/2021 [facility] 15.5 % 11:54 AM [facility] Platelets 242 150 - 450 05/06/2021 [facility] x10(9)/L 11:54 AM [facility] Automated NRBC 0 <=0 /100 05/06/2021 [facility] WBC 11:54 AM [facility] Neutrophil 2.8 1.7 - 7.0 05/06/2021 [facility] Absolute 10(9)/L 11:54 AM [facility] Lymphocyte 1.3 1.0 - 4.8 05/06/2021 [facility] Absolute 10(9)/L 11:54 AM [facility] Monocytes 0.6 0.2 - 0.9 05/06/2021 [facility] Absolute 10(9)/L 11:54 AM [facility] Eosinophil 0.1 0.0 - 0.5 05/06/2021 [facility] Absolute 10(9)/L 11:54 AM [facility] Basophil 0.1 0.0 - 0.3 05/06/2021 [facility] Absolute 10(9)/L 11:54 AM [facility] Automated Neut 2.8 10(9)/L 05/06/2021 [facility] Count (Prelim) 11:54 AM [facility] Comment: The Instrument Absolute Neutrop hil Count (IANC) is calculated from the automated differential and may differ sl ightly from the manual differential Absolute Neutrophil Count (IANC), if subsequently reported. Immature Gran % 0.0 0.0 - 0.5 % 05/06/2021 11:54 AM [facility] Specimen Anatomical Collection Method / Collection Time Recei rufus Time (Source) Location / Volume Laterality Blood Lab OP Venipuncture 05/06/2021 11:40 11/0 02/2021 / Unknown AM CHEESEMAKER 11:44 AM CHEESEMAKER Wyatt Oneil MD LAB_1 Performing Organization Address City/State/ZIP Code Phon e Number [address] [address] TSH - today (05/06/2021 11:40 AM CHEESEMAKER) P athologist Signature TSH, Sensitive 2.52 0.30 - 05/06/2021 [facility] 4.50 12:47 PM [facility] uIU/mL Specimen Anatomical Collection Method / Collection Time Recei rufus Time (Source) Location / Volume Laterality Blood Lab OP Venipuncture 05/06/2021 11:40 11/0 02/2021 / Unknown AM CHEESEMAKER 11:44 AM CHEESEMAKER Wyatt Oneil MD LAB_1 Performing [address] [facility] Phon e Number [address] [address] Liver Panel (Hepatic Function Panel) - STAT (05/06/2021 11:40 AM CHEESEMAKER) P athologist Signature Alkaline 76 40 - 150 05/06/2021 [facility] Phosphatase U/L 12:29 PM [facility] Bilirubin, Total 0.6 0.2 - 1.2 05/06/2021 [facility] mg/dL 12:29 PM [facility] Bilirubin, 0.2 0.0 - 0.5 05/06/2021 [facility] Direct mg/dL 12:29 PM [facility] AST (SGOT) 22 10 - 40 05/06/2021 [facility] U/L 12:29 PM [facility] ALT (SGPT) 27 0 - 55 U/L 05/06/2021 [facility] 12:29 PM [facility] Protein, Total 7.6 6.4 - 8.3 05/06/2021 [facility] g/dL 12:29 PM [facility] Albumin 4.5 3.5 - 5.0 05/06/2021 [facility] g/dL 12:29 PM [facility] Specimen Anatomical Collection Method / Collection Time Recei rufus Time (Source) Location / Volume Laterality Blood Lab OP Venipuncture 05/06/2021 11:40 11/0 02/2021 / Unknown AM CHEESEMAKER 11:44 AM CHEESEMAKER Wyatt Oneil MD LAB_1 Performing Organization Address City/[facility] Phon e Number [address] [address] (ABNORMAL) Basic Metabolic Panel - STAT (05/06/2021 11:40 AM CHEESEMAKER) P athologist Signature Sodium 139 136 - 145 05/06/2021 [facility] mmol/L 12:29 PM [facility] Potassium 4.0 3.5 - 5.1 05/06/2021 [facility] mmol/L 12:29 PM [facility] Chloride 101 98 - 109 05/06/2021 [facility] mmol/L 12:29 PM [facility] CO2 30 (H) 20 - 29 05/06/2021 [facility] mmol/L 12:29 PM [facility] Anion Gap 8 7 - 16 05/06/2021 [facility] mmol/L 12:29 PM [facility] Calcium 10.0 8.4 - 10.4 05/06/2021 [facility] mg/dL 12:29 PM [facility] BUN 17 7 - 26 05/06/2021 [facility] mg/dL 12:29 PM [facility] Creatinine 0.89 0.73 - 05/06/2021 [facility] 1.18 mg/dL 12:29 PM [facility] GFR, Estimated >60 >60 05/06/2021 [facility] mL/min/1.7 12:29 PM [facility] 3m2 Glucose 100 70 - 100 05/06/2021 [facility] mg/dL 12:29 PM [facility] Comment: The given reference range is fo r the fasting state. Non-fasting reference range for glucose is 70 - 180 mg/dL. Hours Fasting Unknown 05/06/2021 12:29 PM [facility] Specimen Anatomical Collection Method / Collection Time Recei rufus Time (Source) Location / Volume Laterality Blood Lab OP Venipuncture 05/06/2021 11:40 11/0 02/2021 / Unknown AM CHEESEMAKER 11:44 AM CHEESEMAKER Wyatt Oneil MD LAB_1 Performing Organization Address City/State/ZIP Code Phon e Number [address] [address] documented in this encounter Visit Diagnoses Diagnosis Hodgkin lymphoma, unspecified, lymph nod es of axilla and upper limb (HRC) documented in this encounter Care Teams Cone Trucker Relationship Specialty Start Date End Date Rob Tillman MD PCP - General Physical Medicine and 08/01/[address] [place] [address] documented as of this encounter
--- OUTSIDE RECORDS SUMMARY | 2022-06-04 15:40 | XMS_ITS | Encounter Summary ---
:1995 Author [facility] Address [address] [place] [address] Care Team Providers Name Role Phone Rob Tillman MD Primary Care Provider Reason for Visit Reason Comments THERAPY ORDERS Encounter Details Date Type Department Care Team Description 01/06/2021 [facility]phone [facility] [place] THERAPY ORDERS Center Boiler Tester apy [address] 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
--- OUTSIDE RECORDS SUMMARY | 2022-06-04 15:40 | XMS_ITS | Encounter Summary ---
:1995 Author Organization [employer] Address [address] [place] [address] Care Team Providers Name Role Phone Rob Tillman MD Primary Care Provider Encounter Details Date Type Department Care Team Description 12/13/2020 Telemedicine [facility] Humera Bush, [facility]), inattentive type (Primary Dx); Psychiatry Nonverbal learning disorder; 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
--- OUTSIDE RECORDS SUMMARY | 2022-06-04 15:40 | XMS_ITS | Encounter Summary ---
:1995 Author Organization [facility] [facility] Address [address], [place] [address] Care Team Providers Name Role Phone Rob Tillman MD Primary Care Provider Reason for Referral Therapies (Routine) - Closed Specialty Diagnoses / Procedures Referred By Contact Refer red To Contact Diagnoses Neurogenic bladder Pelvic floor dysfunction Raj Castro MD [address] [place] [address] Referral ID Status Reason Start Date Expiration Date Visits Requ ested Visits Authorized [id number] Closed 10/31/2020 10/31/2021 999 999 Scheduling Instructions Your provider has recommended an appoint ment with a [facility] Physical Therapist. Call [facility] at . We suggest you call your health insurance company about your coverage an d benefits for this appointment. Reason for Visit Reason Comments Follow-up DISCUSS UDS RESULTS Encounter Details Date Type Department Care Team Description 10/31/2020 Office Visit Specialty Center Raj Castro Neu rogenic bladder (Primary Dx); [facility] Pelvic floor dysfunction [facility]. 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 For Xray, CT test, and Ultrasound results, [...] you! Get Cost of Care Estimates - [phone] The health insurance marketplace has changed dramatically in the last few years. Our cost of care service will provide estimates over the phone for treatments or procedures billed through [facility]. To receive a cost estimate, simply call [phone] during regular business hours. If you have [...] software. Please excuse any typographical errors in transportation dispatch manager Subjective Fly Moran is a 25 y.o. [...] ? Molds & Smuts Other, see comments [place] mold- Respiratory Distress ??? Other Swelling Spider [...] 06/12/2022 Appointment Urology Raj Castro MD [address] [place], [place] [address] (Wo rk) 09/28/2022 Telemedicine Psychiatry Humera Bush MD [address] [place], [place] [address] (Wo rk) Scheduled Referrals Name Type Priority Associated Diagnoses Order S chedule Physical Therapy Referral Routine Neurogenic blad gina Ordered: 10/31/2020 Pelvic floor dysfunction documented as of this encounter Visit Diagnoses Diagnosis Neurogenic bladder - Primary Neurogenic bladder, NOS Pelvic floor dysfunction Pelvic muscle wasting documented in this encounter Care Teams Livestock Slaughterer Relationship Specialty Start Date End Date Rob Tillman MD PCP - General Physical Medicine and 08/01/19 [address] [facility] [place] [place] [address] documented as of this encounter
--- OUTSIDE RECORDS SUMMARY | 2022-06-04 15:40 | XMS_ITS | Encounter Summary ---
:1995 Author Organization [employer] Address [address] [place] [address] Care Team Providers Name Role Phone Rob Tillman MD Primary Care Provider Reason for Visit Reason Comments Billing Question Encounter Details Date Type Department Care Team Description 01/22/2021 Telephone Specialty Center 435 Jaquan Soria Billing Question Orthopedics Clinic [address] [place] [address]. 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 I call patient accounting ([phone]) and they show every thing was paid [...] 06/12/2022 Appointment Urology Raj Castro MD [address] [place], [place] [address] (Wo rk) 09/28/2022 Telemedicine Psychiatry Humera Bush MD [address] [place], [place] [address] (Wo rk) documented as of this encounter Visit Diagnoses Not on filedocumented in this encounter Care Teams Minister Of Religion Relationship Specialty Start Date End Date Rob Tillman MD PCP - General Physical Medicine and 08/01/19 [address] [facility] [place] [address] documented as of this encounter
--- OUTSIDE RECORDS SUMMARY | 2022-06-04 15:40 | XMS_ITS | Encounter Summary ---
:1995 Author Organization [employer] Address [address], [place] [address] Care Team Providers Name Role Phone Rob Tillman MD Primary Care Provider Reason for Referral Procedure/Equipment (Routine) - Closed Specialty Diagnoses / Procedures Referred By Contact Refer red To Contact Diagnoses Spina bifida without hydrocephalus, unspecified spinal region (HRC) Rob Tillman MD Procedures Other-Dme [address] [place] [address] Referral ID Status Reason Start Date Expiration Date Visits Requ ested Visits Authorized [id number] Closed 01/13/2021 04/14/2022 1 1 Procedure/Equipment (Routine) - Closed Specialty Diagnoses / Procedures Referred By Contact Refer red To Contact Diagnoses Spina bifida without hydrocephalus, unspecified spinal region (HRC) Rob Tillman MD Procedures Other-Dme [address] [place] [address] Referral ID Status Reason Start Date Expiration Date Visits Requ ested Visits Authorized [id number] Closed 01/13/2021 04/14/2022 1 1 Reason for Visit Reason Comments Follow-up Spina bifida without hydroce phalus, unspecified spinal region (HRC) Consult/Transfer Care (Routine) - Closed Specialty Diagnoses / Procedures Referred By Contact Refer red To Contact Diagnoses Spina bifida without hydrocephalus, unspecified spinal region (HRC) Rob Tillman MD [address] [place] [address] Referral ID Status Reason Start Date Expiration Date Visits Requ ested Visits Authorized [id number] Closed 12/09/2020 03/10/2022 1 1 Encounter Details Date Type Department Care Team Description 01/13/2021 [facility] Spina bifi da without hydrocephalus, unspecified spinal region (HRC) (Primary Dx); Neuroscience Center MD Sophie Neurogenic bladder; Physical Medicine [address] Neurogenic bowel; [address] 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 We hope [...] Treatment plan: I will reach out to [facility] about backrest and cushion for your [...] treatment plan is please contact us at [phone] (for medical questions) or at [phone] (for questions regarding therapy). documented in this encounter Progress Notes Rob Tillman MD - 01/13/2021 2:00 PM CDT Physical Medicine [place] [address] Date of Service: 01/13/2021 Primary Care Provider: [...] SCI clinic from Hope Cook at the [facility] for general SCI care and management. Fly [...] placed. ?? He has been working on [employer] certificates. ?? 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 ?? DME/Therapies/Function: Therapies: not in any formal therapies, working on HEP Equipment: MWC, SMARTECH MFGfstrand crutches. ADL's: independent Past Medical History: Spina bifida astma Myelomeningocele Depression Anxiety ADHD Hodgkin's Disease ? Family History: Non-contributory ?? Social history: He is working at [employer]. He is working on [employer]!. The patient lives with hisparents. He reports [...] ? Molds & Smuts Other, see comments [place] mold- Respiratory Distress ??? Other Swelling Spider [...] PM Physical Medicine & Rehabilitation PGY-2 Pager: [phone] Chart and pertinent labs reviewed. Agree with assessment and plan per above described. I personally performed the history and physical examination of the patient and discussed the management with the resident. I reviewed and edited the resident's note and agree with the documented findings and plan ofcare. Billing based on: time Total time for the visit was 30 minutes including fbs-kakc-ao-face time spent reviewing records, counseling, and coordination [...] 06/12/2022 Appointment Urology Raj Castro MD [address] [place], [place] [address] (Jeannie osei) 09/28/2022 Telemedicine Psychiatry Humera Bush MD [address] [place], [place] [address] (Jeannie osei) documented as of this encounter Visit Diagnoses Diagnosis Spina bifida without hydrocephalus, unsp ecified spinal region (HRC) - Primary Neurogenic bladder Neurogenic bladder, NOS Neurogenic bowel Gait abnormality Abnormality of gait documented in this encounter Care Teams Security Management Specialist Relationship Specialty Start Date End Date Rob Tillman MD PCP - General Physical Medicine and 08/01/[address] [place] [address] documented as of this encounter
--- OUTSIDE RECORDS SUMMARY | 2022-06-04 15:40 | XMS_ITS | Encounter Summary ---
:1995 Author Organization [employer] Address [address] [place] [address] Care Team Providers Name Role Phone Rob Tillman MD Primary Care Provider Encounter Details Date Type Department Care Team Description 03/07/2021 Telemedicine [facility] Humera Bush, [facility] inattentive type (Primary Dx); Psychiatry Nonverbal learning disorder; 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 Chief Complaint: Fly is seen for follow-up and tells me [...] Wednesday Education: N/A Therapy: Supportive Other Services: [facility], Vocational rehab Mental Status Exam: Fly is [...] 06/12/2022 Appointment Urology Raj Castro MD [address] [place], [place] [address] (Wo rk) 09/28/2022 Telemedicine Psychiatry Humera Bush MD [address] [place], [place] [address] (Wo rk) documented as of this encounter Visit Diagnoses Diagnosis ADHD (attention deficit hyperactivity di sorder), inattentive type (HRC) - Primary Attention deficit disorder with hyperact ivity Nonverbal learning disorder Major depressive disorder, single episod e, severe (HRC) Major depressive disorder, single episod e, severe, without mention of psychotic behavior documented in this encounter Care Teams Cogeneration Technician Relationship Specialty Start Date End Date Rob Tillman MD PCP - General Physical Medicine and 08/01/19 [address] [facility] [place] [address] documented as of this encounter
--- OUTSIDE RECORDS SUMMARY | 2022-06-04 15:40 | XMS_ITS | Encounter Summary ---
:1995 Author Organization [facility] Address [address], [place] [address] Care Team Providers Name Role Phone Rob Tillman MD Primary Care Provider Reason for Referral Procedure/Equipment (Routine) - New Request Specialty Diagnoses / Procedures Referred By Contact Refer red To Contact Diagnoses Spina bifida without hydrocephalus, unspecified spinal region (HRC) Rob Tillman MD Procedures Wheelchair/Scooter Repairs [address] [place] [address] Referral ID Status Reason Start Date Expiration Date Visits V isits Requested Authorized [id number] New Request 07/14/2021 10/13/2022 1 1 SUPPORT CONTROL OFFICER Reason for Visit Reason Comments Revisit Encounter Details Date Type Department Care Team Description 07/14/2021 [facility] Spina bifi da without hydrocephalus, unspecified spinal region (HRC) (Primary Dx); Neuroscience Center MD Sophie Neurogenic bladder; Physical Medicine [address] Neurogenic bowel; [address] 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 ADL's: independent Past Medical History: Spina bifida astma Myelomeningocele Depression Anxiety ADHD Hodgkin's Disease ? Family History: Non-contributory ?? Social history: He is working at [employer]. He is working on [employer]. The patient lives with hisparents. He reports [...] ? Molds & Smuts Other, see comments [place] mold- Respiratory Distress ??? Other Swelling Spider [...] [facility] Doing [facility]. ?? Plan: 1. Patient [...] 2. Bilateral AFOs and shoe lift ordered ([employer] orth[employer]) 8. Follow as indicated: 1. NSGY 2. Oncology 3. Urology 4. Ophthalmology 9. Follow up: [address] Tillman Billing based on: time Total time for the visit was 30 minutes including cdg-vbll-di-face time spent reviewing records, counseling, and coordination of care. Location of provider: Clinic Location of patient: Home Rob Tillman MD 07/14/2021, 1:03 PM Physical Medicine & Rehabilitation SUPPORT CONTROL OFFICER documented in this encounter Plan of Treatment Upcoming Encounters Date Type Specialty Care Team Description 06/12/2022 Appointment Urology Raj Castro MD [address] [place], [place] [address] (Wo rk) 09/28/2022 Telemedicine Psychiatry Humera Bush MD [address] [place], [place] [address] (Wo rk) documented as of this encounter Visit Diagnoses Diagnosis Spina bifida without hydrocephalus, unsp ecified spinal region (HRC) - Primary Neurogenic bladder Neurogenic bladder, NOS Neurogenic bowel Gait abnormality Abnormality of gait documented in this encounter Care Teams Channel Worker Relationship Specialty Start Date End Date Rob Tillman MD PCP - General Physical Medicine and 08/01/19 [address] [facility] [place] [address] documented as of this encounter
--- OUTSIDE RECORDS SUMMARY | 2022-06-04 15:40 | XMS_ITS | Encounter Summary ---
:1995 Author Organization [employer] Address [address] [place] [address] Care Team Providers Name Role Phone Rob Tillman MD Primary Care Provider Reason for Referral Therapies (Routine) - Closed Specialty Diagnoses / Procedures Referred By Contact Refer red To Contact Diagnoses Pelvic floor dysfunction Rob Tillman MD [address] [place] [address] Referral ID Status Reason Start Date Expiration Date Visits Requ ested Visits Authorized [id number] Closed 12/26/2020 12/25/2021 1 1 Scheduling Instructions Your provider has recommended an appoint ment with a [facility] Physical Therapist. Call [facility] Outpatient Rehabilitation at [phone]. We suggest you call your health insurance company about your coverage an d benefits for this appointment. Encounter Details Date Type Department Care Team Description 12/25/2020 Notes/Orders [place] Candie Acosta, PT Pelvic floor PHYSICAL THERAPY [address] dysfunction (Primary [address] 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 documented as of this encounter Progress Notes [...] 06/12/2022 Appointment Urology Raj Castro MD [address] [place], [place] [address] (Wo rk) 09/28/2022 Telemedicine Psychiatry Humera Bush MD [address] [place], [place] [address] (Wo rk) Scheduled Referrals Name Type Priority Associated Diagnoses Order S chedule Physical Therapy Referral Routine Pelvic floor dysfunction Ordered: 12/26/2020 documented as of this encounter Visit Diagnoses Diagnosis Pelvic floor dysfunction - Primary Pelvic muscle wasting documented in this encounter Care Teams Imcu Nurse Relationship Specialty Start Date End Date Rob Tillman MD PCP - General Physical Medicine and 08/01/19 [address] [facility] [address] documented as of this encounter
--- OUTSIDE RECORDS SUMMARY | 2022-06-04 15:40 | XMS_ITS | Encounter Summary ---
:1996 Author Organization [employer] Address [address], [place] [address] Care Team Providers Name Role Phone Rob Tillman MD Primary Care Provider Reason for Visit Reason Comments Rachelle Medication Questions Encounter Details Date Type Department Care Team Description 09/20/2020 Telephone [facility] ry Humera Bush Reeve; Medication [address] MD Questions [address] [place] [address] [phone] Social History Tobacco Use Types Packs/Day Years Used Date Smoking Tobacco: Never Smokeless Tobacco: Never Alcohol Use Standard Drinks/Week Comments Yes 0 (1 standard drink = 0.6 oz pure alcoho l) occasional Sex Assigned at Date Recorded 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 Lisa Chavez - 09/20/2020 3:59 PM CDT Discussed with Rand Butting Machine Operator Yuliana. Referred patient to speak with [facility] [...] a detailed message on your voicemail? Yes [Barrel Reamer: If the pt is calling after 3:30pm, was the caller reminded that their call may not be returned until the following day: No] If a prescription is needed, which pharmacy would you like this filled at? No: [Barrel Reamer: Please add the requested pharmacy to 'Meds & Orders' ] Is there anything else I can help you with today? no Lisa Chavez documented in this encounter Plan of Treatment Upcoming Encounters Date Type Specialty Care Team Description 06/12/2022 Appointment Urology Raj Castro MD [address] [place] [phone] (Wo rk) 09/28/2022 Telemedicine Psychiatry Humera Bush MD [address] [place] [phone] (Wo rk) documented as of this encounter Visit Diagnoses Not on filedocumented in this encounter Care Teams Electrical Accessories I Assembler Relationship Specialty Start Date End Date Rob Tillman MD PCP - General Physical Medicine and 08/01/[address] [place] [address] [place] [address] documented as of this encounter
--- OUTSIDE RECORDS SUMMARY | 2022-06-04 15:40 | XMS_ITS | Encounter Summary ---
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 Treatment Plan: D/C PT VISIT INFORMATION [facility]/ [employer]/ Medicare Insurance Info: Total Units Used (including [...] to OP SCI clinicfrom??[facility]for general SCI care and management. 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 OPERATOR Services: not for years Social Work/Project Control Manager: has ILS worker They are going to [...] 06/12/2022 Appointment Urology Raj Castro MD [address] [place], [place] [address] (Jeannie osei) 09/28/2022 Telemedicine Psychiatry Humera Bush MD [address] [place], [place] [address] (Jeannie osei) documented as of this encounter Visit Diagnoses Diagnosis Impaired mobility - Primary Other ill-defined conditions 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
--- OUTSIDE RECORDS SUMMARY | 2022-06-04 15:40 | XMS_ITS | Encounter Summary ---
:1995 Author Organization [facility] Address [address] [place] [address] Care Team Providers Name Role Phone Rob Tillman MD Primary Care Provider Reason for Visit Reason Onset Date Comments Refill 07/17/2021 Encounter Details Date Type Department Care Team Description 07/17/2021 Refill [facility] Psychiat Humera Bush MD Refill 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 TER COMMERCIAL Lisa Chavez - 07/17/2021 12:03 PM CST Pt aware appt is needed for August, will call back to schedule when available. Patient out of meds. TER COMMERCIAL documented in this encounter Plan of Treatment Upcoming Encounters Date Type Specialty Care Team Description 06/12/2022 Appointment Urology Raj Castro MD [address] [place], [place] [address] (Wo rk) 09/28/2022 Telemedicine Psychiatry Humera Bush MD [address] [place], [place] [address] (Wo rk) documented as of this encounter Visit Diagnoses Not on filedocumented in this encounter Care Teams Anodiser Relationship Specialty Start Date End Date Rob Tillman MD PCP - General Physical Medicine and 08/01/19 [address] [facility] [place] [place] [address] documented as of this encounter
--- OUTSIDE RECORDS SUMMARY | 2022-06-04 15:40 | XMS_ITS | Encounter Summary ---
:1995 Author Organization [facility] Address [address], [place] [address] Care Team Providers Name Role Phone Rob Tillman MD Primary Care Provider Encounter Details Date Type Department Care Team Description 09/17/[address] [facility] 435 Neurogenic bladder Laboratory [address] [facility] 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 documented in this encounter Results Creatinine / GFR (09/17/2020 4:22 PM CDT) Patholo gist Method Time Signature Creatinine 0.82 0.73 - 09/17/[facility]52 PM CDT [facility] mg/dL GFR, Estimated >60 >60 09/17/2020 [facility] mL/min/1. 6:52 PM CDT CENTRAL LAB 73m2 Specimen Anatomical Collection Method / Collection Time Recei rufus Time (Source) Location / Volume Laterality Blood Venipuncture / 09/17/2020 4:22 09/17/2020 4:22 Unknown PM CDT PM CDT Raj Castro MD LAB_1 Performing Organization Address City/State/ZIP Code Phon e Number [facility]AL [facility] [address] [id number] documented in this encounter Visit Diagnoses Diagnosis Neurogenic bladder Neurogenic bladder, NOS documented in this encounter Care Teams Supervisor Special Education Relationship Specialty Start Date End Date Rob Tillman MD PCP - General Physical Medicine and 08/01/[address] [place] [address] [place] [address] documented as of this encounter
--- OUTSIDE RECORDS SUMMARY | 2022-06-04 15:40 | XMS_ITS | Encounter Summary ---
:1995 Author Organization [facility] Address [address] [place] [address] Care Team Providers Name Role Phone Rob Tillman MD Primary Care Provider Reason for Visit Reason Comments Insurance Concerns Encounter Details Date Type Department Care Team Description 01/22/2021 Telephone [facility] 435 Raj Castro MD Insurance Concerns Urology Clinic [address] 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 Sol Butcher 01/22/2021, 10:35 AM Angeles Almeida, RN - 01/22/2021 10:18 AM CDT This has been forwarded to Urology supervisor soldering, Antwon. Please let patient know it is being addressed and he should hear back shortly regarding this matter. Thanks. Angeles Castro RN 01/22/2021, 10:19 AM Sherwin Munson - 01/22/2021 9:18 AM CDT Patient's 5/6 visit was denied by insurance. Letter came from [facility] saying the wrong insurance was billed first, so they cant pay it. Primary insurance is [employer]. Please advise how to proceed or where to direct patient. Sherwin Munson 01/22/2021, 9:21 AM documented in this encounter Plan of Treatment Upcoming Encounters Date Type Specialty Care Team Description 06/12/2022 Appointment Urology Raj Castro MD [address] [place], [place] [address] (Wo rk) 09/28/2022 Telemedicine Psychiatry Humera Bush MD [address] [place], [place] [address] (Wo rk) documented as of this encounter Visit Diagnoses Not on filedocumented in this encounter Care Teams Entry Level Accountant Relationship Specialty Start Date End Date Rob Tillman MD PCP - General Physical Medicine and 08/01/19 [address] [facility] [place] [address] documented as of this encounter
--- OUTSIDE RECORDS SUMMARY | 2022-06-04 15:40 | XMS_ITS | Encounter Summary ---
:1995 Author Organization [facility] Address [address] [place] [address] Care Team Providers Name Role Phone Rob Tillman MD Primary Care Provider Encounter Details Date Type Department Care Team Description 02/20/2021 Telemedicine [facility] Humera Bush, [facility] inattentive type (Primary Dx); Psychiatry Nonverbal learning disorder; 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 Education: N/A Therapy: [...] Mclaughlin DO, PGY3 02/20/21 12:23 PM Pager: [phone] This note created using speech-recognition software and [...] 06/12/2022 Appointment Urology Raj Castro MD [address] [place], [place] [address] (Wo rk) 09/28/2022 Telemedicine Psychiatry Humera Bush MD [address] [place], [place] [address] (Wo rk) documented as [...] unspecified documented in this encounter Care Teams Commissary Clerk Relationship Specialty Start Date End Date Rob Tillman MD PCP - General Physical Medicine and 08/01/19 [address] [facility] [place] [address] documented as of this encounter
--- OUTSIDE RECORDS SUMMARY | 2022-06-04 15:40 | XMS_ITS | Encounter Summary ---
:1995 Author Organization [facility] Address [address] [place] [address] Care Team Providers Name Role Phone Rob Tillman MD Primary Care Provider Reason for Visit Reason Comments QUESTIONS, GENERAL Encounter Details Date Type Department Care Team Description 10/07/2020 Telephone [facility] 435 Unassign ed, Provider QUESTIONS, GENERAL Urology Clinic [address] [place] [address]. 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 documented as of this encounter Nursing Notes [...] symptoms worsen please contact the Careline at [phone] OR at .] Is this a question/concern [...] 06/12/2022 Appointment Urology Raj Castro MD [address] [place], [place] [address] (Wo rk) 09/28/2022 Telemedicine Psychiatry Humera Bush MD [address] [place], [place] [address] (Wo rk) documented as of this encounter Visit Diagnoses Not on filedocumented in this encounter Care Teams Licensing Court Magistrate Relationship Specialty Start Date End Date Rob Tillman MD PCP - General Physical Medicine and 08/01/19 [address] [facility] [place] [place] [address] documented as of this encounter
--- OUTSIDE RECORDS SUMMARY | 2022-06-04 15:40 | XMS_ITS | Encounter Summary ---
:1995 Author Organization [facility] Address [address], [place] [address] Care Team Providers Name Role Phone Rob Tillman MD Primary Care Provider Reason for Visit Reason Comments Forms shower chair back and remova ble arm Encounter Details Date Type Department Care Team Description 01/21/2021 Telephone [facility] Rob Tillman Forms ([facility] MD Sophie back and removable Physical Medicine [address] arm) [address] 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 Sent to scanning, Thank you. Josias Gee 01/24/2021, 3:30 PM Rob Tillman MD - 01/24/2021 2:15 PM CDT Form completed, given to clinic office assistant for faxing. Requested documentation was added to [...] 06/12/2022 Appointment Urology Raj Castro MD [address] [place], [place] [address] (Wo rk) 09/28/2022 Telemedicine Psychiatry Humera Bush MD [address] [place], [place] [address] (Wo rk) documented as of this encounter Visit Diagnoses Not on filedocumented in this encounter Care Teams Box Office Clerk Relationship Specialty Start Date End Date Rob Tillman MD PCP - General Physical Medicine and 08/01/19 [address] [facility] Rehabilitation [place], [place] [phone] documented as of this encounter
--- OUTSIDE RECORDS SUMMARY | 2022-06-04 15:40 | XMS_ITS | Encounter Summary ---
:1995 Author Organization [facility] Address [address] [place] [address] Care Team Providers Name Role Phone Rob Tillman MD Primary Care Provider Encounter Details Date Type Department Care Team Description 05/06/2021 Office Visit [facility] Cancer Wyatt Oneil lymphoma, unspecified, lymph nodes of axilla and upper limb (HRC) (Primary Dx); [facility], unspecified hydrocephalus presence, unspecified spinal region (HRC) [address] [phone] Social History Tobacco Use Types Packs/Day Years Used Date Smoking Tobacco: Never Smokeless Tobacco: Never Alcohol Use Standard Drinks/Week Comments Yes 0 (1 standard drink = 0.6 oz pure alcoho l) occasional Sex Assigned at Date Recorded 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 as of this encounter Last Filed Vital Signs Vital Sign Reading Time Taken Comments Blood Pressure 126/80 05/06/2021 10:44 AM FOOD SERVICE Pulse 94 05/06/2021 10:44 AM FOOD SERVICE Temperature 36.7 ??C (98.1 ??F) 05/06/2021 10:44 AM FOOD SERVICE Respiratory Rate 20 05/06/2021 10:44 AM FOOD SERVICE Oxygen Saturation 97% 05/06/2021 10:44 AM FOOD SERVICE Inhaled Oxygen Concentration - - Weight 57.2 kg (126 lb 1.7 oz) 05/06/2021 10:44 AM FOOD SERVICE Height - - Body Mass Index 23.83 12/18/2020 2:08 PM CDT documented in this encounter Patient Instructions Patient InstructionsHuWyatt leon MD - 05/06/2021 10:20 AM CST DIAGNOSES: 1. 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 Oneil scheduled on 05/06/22 @3:50pm at [facility]. Magdy Miguel 11:25 AM 05/06/21 REMINDER! If you are not feeling well please call before you come to the clinic. SERVICE documented in this encounter Progress Notes Wyatt Oneil MD - 05/06/2021 10:20 AM CST This office note has been dictated. [id number] Wyatt Oneil MD SERVICE Vani Oneal RN - 05/06/2021 10:20 AM CST Completed per provider's orders. QOPI: Is patient starting new chemotherapy medications today or in the near future? 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 He is now working at [employer] and has gotten his own apartment in [place]. 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 For the most part, he feels well. He has had occasional night sweats. He has had no pain. He had an inclusion cyst removed from beneath his chin this past year. There has been no other significant medical issues. He has not seen his rehabilitation counsellor, Dr. Tillman, in the past year and has not seen a primary care provider. He gets his healthcare through [facility] Of note, is his mother was [...] year with repeat labs. WYATT ONEIL MD [facility]/NICOLE /[id number] cc:[address] [address] SERVICE documented in this encounter Plan of Treatment Upcoming Encounters Date Type Specialty Care Team Description 06/12/2022 Appointment Urology Raj Castro MD [address] [place], [place] [address] (Wo rk) 09/28/2022 Telemedicine Psychiatry Humera Bush MD [address] [place], [place] [address] (Wo rk) documented as of this encounter Results TSH - today (05/06/2021 11:40 AM FOOD SERVICE) athologist Signature TSH, Sensitive 2.52 0.30 - 05/06/2021 [facility] 4.50 12:47 PM [facility] uIU/mL Specimen Anatomical Collection Method / Collection Time Recei rufus Time (Source) Location / Volume Laterality Blood Lab OP Venipuncture 05/06/2021 11:40 11/0 02/2021 / Unknown AM FOOD SERVICE 11:44 AM FOOD SERVICE Wyatt Oneil MD LAB_1 Performing Organization Address City/State/ZIP Code Phon e Number [address] [address] Liver Panel (Hepatic Function Panel) - STAT (05/06/2021 11:40 AM FOOD SERVICE) athologist Signature Alkaline 76 40 - 150 05/06/2021 [facility] Phosphatase U/L 12:29 PM [facility] Bilirubin, Total 0.6 0.2 - 1.2 05/06/2021 [facility] mg/dL 12:29 PM [facility] Bilirubin, 0.2 0.0 - 0.5 05/06/2021 [facility] Direct mg/dL 12:29 PM [facility] AST (SGOT) 22 10 - 40 05/06/2021 [facility] U/L 12:29 PM [facility] ALT (SGPT) 27 0 - 55 U/L 05/06/2021 [facility] 12:29 PM [facility] Protein, Total 7.6 6.4 - 8.3 05/06/2021 [facility] g/dL 12:29 PM [facility] Albumin 4.5 3.5 - 5.0 05/06/2021 [facility] g/dL 12:29 PM [facility] Specimen Anatomical Collection Method / Collection Time Recei rufus Time (Source) Location / Volume Laterality Blood Lab OP Venipuncture 05/06/2021 11:40 11/0 02/2021 / Unknown AM FOOD SERVICE 11:44 AM FOOD SERVICE Wyatt Oneil MD LAB_1 Performing Organization Address City/State/ZIP Code Phon e Number [address] [address] (ABNORMAL) Basic Metabolic Panel - STAT (05/06/2021 11:40 AM FOOD SERVICE) P athologist Signature Sodium 139 136 - 145 05/06/2021 [facility] mmol/L 12:29 PM [facility] Potassium 4.0 3.5 - 5.1 05/06/2021 [facility] mmol/L 12:29 PM [facility] Chloride 101 98 - 109 05/06/2021 [facility] mmol/L 12:29 PM [facility] CO2 30 (H) 20 - 29 05/06/2021 [facility] mmol/L 12:29 PM [facility] Anion Gap 8 7 - 16 05/06/2021 [facility] mmol/L 12:29 PM [facility] Calcium 10.0 8.4 - 10.4 05/06/2021 [facility] mg/dL 12:29 PM [facility] BUN 17 7 - 26 05/06/2021 [facility] mg/dL 12:29 PM [facility] Creatinine 0.89 0.73 - 05/06/2021 [facility] 1.18 mg/dL 12:29 PM [facility] GFR, Estimated >60 >60 05/06/2021 [facility] mL/min/1.7 12:29 PM [facility] 3m2 Glucose 100 70 - 100 05/06/2021 [facility] mg/dL 12:29 PM [facility] Comment: The given reference range is fo r the fasting state. Non-fasting reference range for glucose is 70 - 180 mg/dL. Hours Fasting Unknown 05/06/2021 12:29 PM FOOD SERVICE [facility] Specimen Anatomical Collection Method / Collection Time Recei rufus Time (Source) Location / Volume Laterality Blood Lab OP Venipuncture 05/06/2021 11:40 11/0 02/2021 / Unknown AM FOOD SERVICE 11:44 AM FOOD SERVICE Wyatt Oneil MD LAB_1 Performing Organization Address City/State/ZIP Code Phon e Number [address] [phone] documented in this encounter Visit Diagnoses Diagnosis Hodgkin lymphoma, unspecified, lymph nod es of axilla and upper limb (HRC) - Primary Spina bifida, unspecified hydrocephalus presence, unspecified spinal region (HRC) documented in this encounter Care Teams Wire Drawing Machine Operator Relationship Specialty Start Date End Date Rob Tillman MD PCP - General Physical Medicine and 08/01/19 [facility] [address] Rehabilitation [place], [place] [phone] documented as of this encounter
--- OUTSIDE RECORDS SUMMARY | 2022-06-04 15:40 | XMS_ITS | Encounter Summary ---
:1995 Author Organization [email or web address] Address [address] [place] [address] Care Team Providers Name Role Phone Rob Tillman MD Primary Care Provider Reason for Visit Reason Comments Rachelle Prior Authorization For Medication wellbutrin Encounter Details Date Type Department Care Team Description 10/22/[address] [facility] Humera Bush Reeve; Tessy baca Psychiatry Authorization For 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 Phone number for [employer] - [phone] PA initiated. Tomeka Adams RN 10/22/2020, 3:28 PM Karuna Church - 10/22/2020 3:09 PM CDT PA received scanned to RN/DELPHI DEVELOPER. documented in this encounter Plan of Treatment Upcoming Encounters Date Type Specialty Care Team Description 06/12/2022 Appointment Urology Raj Castro MD [address] [place], [place] [address] (Wo rk) 09/28/2022 Telemedicine Psychiatry Humera Bush MD [address] [place], [place] [address] (Wo rk) documented as of this encounter Visit Diagnoses Not on filedocumented in this encounter Care Teams Trash Hauler Relationship Specialty Start Date End Date Rob Tillman MD PCP - General Physical Medicine and 08/01/19 [address] [place] [address] documented as of this encounter
--- OUTSIDE RECORDS SUMMARY | 2022-06-04 15:40 | XMS_ITS | Encounter Summary ---
:1995 Author Organization [employer] Address [address] [place] [address] Care Team Providers Name Role Phone Rob Tillman MD Primary Care Provider Reason for Referral Procedure/Equipment (Routine) - Closed Specialty Diagnoses / Procedures Referred By Contact Refer red To Contact Diagnoses Neurogenic dysfunction of the urinary bladder Pelvic floor dysfunction Raj Castro MD [address] [place] [phone] Referral ID Status Reason Start Date Expiration Date Visits Requ ested Visits Authorized [id number] Closed 12/18/2020 03/19/2022 20 20 Scheduling Instructions . Reason for Visit Reason Comments Pelvic Health Therapies (Routine) - Closed Specialty Diagnoses / Procedures Referred By Contact Refer red To Contact Diagnoses Neurogenic bladder Pelvic floor dysfunction Raj Castro MD [address] [place] [phone] Referral ID Status Reason Start Date Expiration Date Visits Requ ested Visits Authorized [id number] Closed 10/31/2020 10/31/2021 999 999 Encounter Details Date Type Department Care Team Description 12/18/2020 Office Visit [facility] Candie Smith, PT Neurogenic dysfunction of the urinary bl adder (Primary Dx); PHYSICAL THERAPY [address] Pelvic floor dysfunction [address] 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 Urodynamic study: Barriers/Restrictions: Spina bifida/neurogenic bladder Precautions: [...] denies Post-void dribbling: denies Bowel: Frequency: 1-2X/day Kellogg stool type: 4 Straining: denies Incomplete bowel [...] Physical Medicine for Spina Bifida management Occupation: [employer] at [employer], has unrestricted access to restroom Dietary [...] 06/12/2022 Appointment Urology Raj Castro MD [address] [place], [place] [address] (Wo rk) 09/28/2022 Telemedicine Psychiatry Humera Bush MD [address] [place], [place] [address] (Wo rk) Scheduled Referrals [...] wasting documented in this encounter Care Teams Wharf Tender Helper Relationship Specialty Start Date End Date Rob Tillman MD PCP - General Physical Medicine and 08/01/19 [address] [facility] [place] [address] documented as of this encounter
--- OUTSIDE RECORDS SUMMARY | 2022-06-04 15:40 | XMS_ITS | Encounter Summary ---
:1995 Author Organization [employer] Address [address] [place] [address] Care Team Providers Name Role Phone Rob Tillman MD Primary Care Provider Reason for Visit Reason Comments Procedure Urodynamics Procedure/Equipment (Routine) - Closed Specialty Diagnoses / Procedures Referred By Contact Refer red To Contact Diagnoses Neurogenic bladder Raj Castro MD [address] [place] [phone] Referral ID Status Reason Start Date Expiration Date Visits Requ ested Visits Authorized [id number] Closed 09/17/2020 12/17/2021 1 1 Encounter Details Date Type Department Care Team Description 10/14/2020 Office Visit [facility] [address] [place] [address]. 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 There are generally no adverse of long lasting side effects from Urodynamics testing. You may, however, experience a burning sensation of pass a small amount of blood when urinating for the next 24 to 48 hours. This is considered normal following catheterization. Please contact Dr. Raj Castro at [phone] if any problems should arise or you [...] 06/12/2022 Appointment Urology Raj Castro MD [address] [place], [place] [address] (Wo rk) 09/28/2022 Telemedicine Psychiatry Humera Bush MD [address] [place], [place] [address] (Wo rk) Scheduled Referrals Name Type Priority Associated Diagnoses Order S chedule URODYNAMICS (UDS) Referral Routine Neurogenic bladder Orde red: 09/17/2020 documented as of this encounter Visit Diagnoses Not on filedocumented in this encounter Care Teams Metal Fabricator Relationship Specialty Start Date End Date Rob Tillman MD PCP - General Physical Medicine and 08/01/19 [address] [facility] Rehabilitation [place], [place] [phone] documented as of this encounter
--- OUTSIDE RECORDS SUMMARY | 2022-06-04 15:41 | XMS_ITS | Encounter Summary ---
:1995 Author Organization [employer] Address [address] [place] [address] Care Team Providers Name Role Phone Rob Tillman MD Primary Care Provider Reason for Visit Reason Comments FOLLOW-UP,[place] Encounter Details Date Type Department Care Team Description 01/29/2020 Telephone [place] TMD Lisa Haddad, FOLLOW-UP,LAB (lab case [address] 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 documented as of this encounter Nursing Notes Lisa Haddad LDA - 01/29/2020 4:55 PM CDT Lab case arrived from [facility] for LA[facility]L insert on 02/08/20 @ [place] D[facility] Mohamud documented in this encounter Plan of Treatment Upcoming Encounters Date Type Specialty Care Team Description 06/12/2022 Appointment Urology Raj Castro MD [address] [place] [phone] (Wo rk) 09/28/2022 Telemedicine Psychiatry Humera Bush MD [address] [place], [place] [address] (Wo rk) documented as of this encounter Visit Diagnoses Not on filedocumented in this encounter Care Teams Back Pad Inspector Relationship Specialty Start Date End Date Rob Tillman MD PCP - General Physical Medicine and 08/01/19 [address] [facility] [place] [place] [address] documented as of this encounter
--- OUTSIDE RECORDS SUMMARY | 2022-06-04 15:41 | XMS_ITS | Encounter Summary ---
:1995 Author Organization [employer] Address [address], [place] [address] Care Team Providers Name Role Phone Rob Tillman MD Primary Care Provider Encounter Details Date Type Department Care Team Description 07/11/2020 Lab Visit [facility] ADHD (attention deficit hype ractivity disorder), inattentive type; [address] [facility] Nonverbal learning disorder; [place], [place] [address] Major depressive disorder, s grace episode, severe ([facility]) [phone] Social History Tobacco Use Types Packs/Day Years Used Date Smoking Tobacco: Never Smokeless Tobacco: Never Alcohol Use Standard Drinks/Week Comments Yes 0 (1 standard drink = 0.6 oz pure alcoho l) occasional Sex Assigned at Date Recorded Male 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 documented as of this encounter Plan of Treatment Upcoming Encounters Date Type Specialty Care Team Description 06/12/2022 Appointment Urology Raj Castro MD [address] [place], [place] [address] (Wo rk) 09/28/2022 Telemedicine Psychiatry Humera Bush MD [address] [place], [place] [address] (Wo rk) documented as of this encounter Procedures Procedure Name Priority Date/Time Associated Diagnosis Comme nts LIPID PANEL AND Routine 07/11/2020 8:15 AM ADHD (attention Res ults for this DIRECT LDL(IF ACID PURIFICATION EQUIPMENT OPERATOR deficit hyperactivity proce dure are in NEEDED) disorder), inattentive the r esults type section. Nonverbal learning disorder Major depressive disorder, single episode, severe (HRC) HGB A1C Routine 07/11/2020 8:15 AM ADHD (attention Result s for this ACID PURIFICATION EQUIPMENT OPERATOR deficit hyperactivity proced ure are in disorder), inattentive the r esults type section. Nonverbal learning disorder Major depressive disorder, single episode, severe (HRC) documented in this encounter Results Hgb A1C (07/11/2020 8:15 AM ACID PURIFICATION EQUIPMENT OPERATOR) [facility] Method Time Signature Hemoglobin A1C 4.7 <=5.6 % 07/11/2020 [facility] 2:13 PM ACID PURIFICATION EQUIPMENT OPERATOR CENTRAL [facility] Specimen Anatomical Collection Method / Collection Time Recei rufus Time (Source) Location / Volume Laterality Blood Venipuncture / 07/11/2020 8:15 07/11/2020 8:15 Unknown AM ACID PURIFICATION EQUIPMENT OPERATOR AM ACID PURIFICATION EQUIPMENT OPERATOR Humera Bush MD LAB_1 Performing Organization Address City/State/ZIP Code Phon e Number [facility] [address] [address] Lipid Panel and Direct LDL(If Needed) (07/11/2020 8:15 AM ACID PURIFICATION EQUIPMENT OPERATOR) [facility] Method Time Signature Cholesterol 180 0 - 199 07/11/2020 [facility] mg/dL 11:48 AM ACID PURIFICATION EQUIPMENT OPERATOR CENTRAL LAB Triglyceride 85 <=149 07/11/2020 [facility] mg/dL 11:48 AM ACID PURIFICATION EQUIPMENT OPERATOR CENTRAL LAB HDL Cholesterol 44 >=40 07/11/2020 [facility] mg/dL 11:48 AM ACID PURIFICATION EQUIPMENT OPERATOR CENTRAL LAB LDL, Calculated 119 <130 07/11/2020 [facility] mg/dL 11:48 AM ACID PURIFICATION EQUIPMENT OPERATOR CENTRAL LAB Non HDL Chol, 136 mg/dL 07/11/2020 [facility] Calculated 11:48 AM ACID PURIFICATION EQUIPMENT OPERATOR CENTRAL LAB Cholesterol/HDL 4.1 07/11/2020 [facility] Ratio 11:48 AM ACID PURIFICATION EQUIPMENT OPERATOR CENTRAL LAB Hours Fasting 14 07/11/2020 [place] [facility] 11:48 AM ACID PURIFICATION EQUIPMENT OPERATOR Specimen Anatomical Collection Method / Collection Time Recei rufus Time (Source) Location / Volume Laterality Blood Venipuncture / 07/11/2020 8:15 07/11/2020 8:15 Unknown AM ACID PURIFICATION EQUIPMENT OPERATOR AM ACID PURIFICATION EQUIPMENT OPERATOR Humera Bush MD LAB_1 Performing Organization Address City/State/ZIP Code Phon e Number [facility] [address] [address] [facility] [address] [place], [place] [phone] documented in this encounter Visit Diagnoses Diagnosis ADHD (attention deficit hyperactivity di sorder), inattentive type (HRC) Attention deficit disorder with hyperact ivity Nonverbal learning disorder Major depressive disorder, single episod e, severe ([facility]C) Major depressive disorder, single episod e, severe, without mention of psychotic behavior documented in this encounter Care Teams Secretary Of Police Relationship Specialty Start Date End Date Rob Tillman MD PCP - General Physical Medicine and 08/01/[address] [place] [address] [place] [address] documented as of this encounter
--- OUTSIDE RECORDS SUMMARY | 2022-06-04 15:41 | XMS_ITS | Encounter Summary ---
:1995 Author Organization [employer] Address [address] [place] [address] Care Team Providers Name Role Phone Rob Tillman MD Primary Care Provider Encounter Details Date Type Department Care Team Description 07/09/2020 Telemedicine [facility] Humera Bush, [facility]), inattentive type (Primary Dx); Psychiatry Nonverbal learning disorder; 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 He has been working now for about 3 weeks and works 21 hours a week. He shares that he has had positive feedback from his supervisor shipping room regarding his work performance. He feels like [...] activities. 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 FACTURING ANALYST documented in this encounter Plan of Treatment Upcoming Encounters Date Type Specialty Care Team Description 06/12/2022 Appointment Urology Raj Castro MD [address] [place], [place] [address] (Wo rk) 09/28/2022 Telemedicine Psychiatry Humera Bush MD [address] [place], [place] [address] (Wo rk) documented as of this encounter Results Hgb A1C (07/11/2020 8:15 AM MANUFACTURING ANALYST) [facility] Method Time Signature Hemoglobin A1C 4.7 <=5.6 % 07/11/2020 [facility] 2:13 PM MANUFACTURING ANALYST CENTRAL LAB Specimen Anatomical Collection Method / Collection Time Recei rufus Time (Source) Location / Volume Laterality Blood Venipuncture / 07/11/2020 8:15 07/11/2020 8:15 Unknown AM MANUFACTURING ANALYST AM MANUFACTURING ANALYST Humera Bush MD LAB_1 Performing Organization Address City/State/ZIP Code Phon e Number [facility] [address] [address] Lipid Panel and Direct LDL(If Needed) (07/11/2020 8:15 AM MANUFACTURING ANALYST) [facility] Method Time Signature Cholesterol 180 0 - 199 07/11/2020 [facility] mg/dL 11:48 AM MANUFACTURING ANALYST CENTRAL LAB Triglyceride 85 <=149 07/11/2020 [facility] mg/dL 11:48 AM MANUFACTURING ANALYST CENTRAL LAB HDL Cholesterol 44 >=40 07/11/2020 [facility] mg/dL 11:48 AM MANUFACTURING ANALYST CENTRAL LAB LDL, Calculated 119 <130 07/11/2020 [facility] mg/dL 11:48 AM MANUFACTURING ANALYST CENTRAL LAB Non HDL Chol, 136 mg/dL 07/11/2020 [facility] Calculated 11:48 AM MANUFACTURING ANALYST CENTRAL LAB Cholesterol/HDL 4.1 07/11/2020 [facility] Ratio 11:48 AM MANUFACTURING ANALYST CENTRAL LAB Hours Fasting 14 07/11/2020 [place] [facility] 11:48 AM MANUFACTURING ANALYST Specimen Anatomical Collection Method / Collection Time Recei rufus Time (Source) Location / Volume Laterality Blood Venipuncture / 07/11/2020 8:15 07/11/2020 8:15 Unknown AM MANUFACTURING ANALYST AM MANUFACTURING ANALYST Humera Bush MD LAB_1 Performing Organization Address City/State/ZIP Code Phon e Number [facility] [address] [address] [facility] [address] [place], [place] [phone] documented in this encounter Visit Diagnoses Diagnosis ADHD (attention deficit hyperactivity di sorder), inattentive type (HRC) - Primary Attention deficit disorder with hyperact ivity Nonverbal learning disorder Major depressive disorder, single episod e, severe (HRC) Major depressive disorder, single episod e, severe, without mention of psychotic behavior documented in this encounter Care Teams Assistant Store Director Relationship Specialty Start Date End Date Rob Tillman MD PCP - General Physical Medicine and 08/01/[address] [place] [address] [place] [address] documented as of this encounter
--- OUTSIDE RECORDS SUMMARY | 2022-06-04 15:41 | XMS_ITS | Encounter Summary ---
:1995 Author Organization [employer] Address [address], [place] [address] Care Team Providers Name Role Phone Rob Tillman MD Primary Care Provider Reason for Visit Reason Comments Reeve LETTER NEEDED Encounter Details Date Type Department Care Team Description 07/01/2020 Telephone [facility] Humera Bush Reeve; LETTER NEEDED [address] [place] [address] [phone] Social History Tobacco Use Types Packs/Day Years Used Date Smoking Tobacco: Never Smokeless Tobacco: Never Alcohol Use Standard Drinks/Week Comments Yes 0 (1 standard drink = 0.6 oz pure alcoho l) occasional Sex Assigned at Date Recorded 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 The sales representative [employer] said she could not help me as I do not have access to pt's chart. She stated I needed to call the prescription benefit plan, but was unable to give mortgage or loan underwriter a number for them. Attempted to contact pt. Left detailed VM letting him know that mortgage or loan underwriter has been unable to figure outexactly what [...] Tomeka Adams RN 07/01/2020, 4:00 PM R WORKER SPECIALIST Nadine Larson - 07/01/2020 3:22 PM CST [...] received from pts RX plan, Medicare and [employer] has merged for 2020. Insurance will determine if Wellbutrin is covered once statement from provider is received and reviewed with in 72hrs. Customer ID# on letter is: [phone] Group RX #: [id number] (Pt will try to email and attach letter from insurance plan via onlinetours) How would you like to receive your form/ letter?: [Truck Trailer Mechanic:this may require a Release of Information form to be completed/signed] Call [phone] - No fax number on letter received Is it okay to leave a detailed message on your voicemail? Yes [Truck Trailer Mechanic]: Communicate to patient: Forms/letters may take up to 7-10 business days to complete. We will complete it as soon as possible and return it to the location you requested ?? If the form/letter is medication related - route this encounter to the senior genetic counselor ?? If the form/letter is non-medication related - route this encounter to the Med [place] [facility] Is there anything else I can help you with today? no Nadine Larson R WORKER SPECIALIST documented in this encounter Plan of Treatment Upcoming Encounters Date Type Specialty Care Team Description 06/12/2022 Appointment Urology Raj Castro MD [address] [place] [phone] (Wo rk) 09/28/2022 Telemedicine Psychiatry Humera Bush MD [address] [place], [place] [address] (Wo rk) documented as of this encounter Visit Diagnoses Not on filedocumented in this encounter Care Teams Advanced Manufacturing Engineer Relationship Specialty Start Date End Date Rob Tillman MD PCP - General Physical Medicine and 08/01/[address] [place] [address] [place] [address] documented as of this encounter
--- OUTSIDE RECORDS SUMMARY | 2022-06-04 15:41 | XMS_ITS | Encounter Summary ---
:1995 Author Organization [employer] Address [address] [place] [address] Care Team Providers Name Role Phone Rob Tillman MD Primary Care Provider Encounter Details Date Type Department Care Team Description 04/12/2020 Telemedicine [facility] Humera Bush, ADHD (attention deficit hype ractivity disorder), inattentive type (Primary Dx); [address] 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 They are working with the foster care case manager about looking for community job placement. They [...] activities Education: N/A Therapy: None Other Services: [facility] worker, foster care case manager with [employer] Mental Status Exam: Fly [...] suggestions. He will continue work with his [employer] worker for job placement. Because we are [...] 06/12/2022 Appointment Urology Raj Castro MD [address] [place] [address] (Wo rk) 09/28/2022 Telemedicine Psychiatry Humera Bush MD [address] [place], [place] [address] (Wo rk) documented as of this encounter Visit Diagnoses Diagnosis ADHD (attention deficit hyperactivity di sorder), inattentive type (HRC) - Primary Attention deficit disorder with hyperact ivity Nonverbal learning disorder Spina bifida, unspecified hydrocephalus presence, unspecified spinal region (HRC) Anxiety (HRC) Anxiety state, unspecified documented in this encounter Care Teams Table Cover Folder Relationship Specialty Start Date End Date Rob Tillman MD PCP - General Physical Medicine and 08/01/[address] [place] [address] [place] [address] documented as of this encounter
--- OUTSIDE RECORDS SUMMARY | 2022-06-04 15:41 | XMS_ITS | Encounter Summary ---
:1996 Author Organization [employer] Address [address] [place] [address] Care Team Providers Name Role Phone Rob Tillman MD Primary Care Provider Encounter Details Date Type Department Care Team Description 01/17/2020 Telemedicine [facility] Humera Bush, ADHD (attention deficit hype ractivity disorder), inattentive type (Primary Dx); [address] [place] Nonverbal learning disorder; 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 documented as of this encounter Progress Notes Humera Bush MD - 01/17/2020 4:00 PM CDT Fly Moran 01/17/2020 Psychiatric Follow-Up Visit Reason for [...] his ILS worker, does have a county field nurse case manager Mental Status Exam: Fly's more [...] transition to adulthood issues Follow-up with current [facility] field nurse case manager to investigate options for in-home [...] 06/12/2022 Appointment Urology Raj Castro MD [address] [place], [place] [address] (Wo rk) 09/28/2022 Telemedicine Psychiatry Humera Bush MD [address] [place], [place] [address] (Wo rk) documented as of this encounter Visit Diagnoses Diagnosis ADHD (attention deficit hyperactivity di sorder), inattentive type (HRC) - Primary Attention deficit disorder with hyperact ivity Nonverbal learning disorder Anxiety (HRC) Anxiety state, unspecified Spina bifida, unspecified hydrocephalus presence, unspecified spinal region (HRC) documented in this encounter Care Teams Microgrinder Operator Relationship Specialty Start Date End Date Rob Tillman MD PCP - General Physical Medicine and 08/01/19 [address] [facility] [place] [address] documented as of this encounter
--- OUTSIDE RECORDS SUMMARY | 2022-06-04 15:41 | XMS_ITS | Encounter Summary ---
:1995 Author Organization [employer] Address [address] [place] [address] Care Team Providers Name Role Phone Rob Tillman MD Primary Care Provider Reason for Visit Reason Comments PAIN, MOUTH Encounter Details Date Type Department Care Team Description 03/22/2020 Telephone [facility] Priscilla Bagley, PAIN, MOUTH [address] 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
--- OUTSIDE RECORDS SUMMARY | 2022-06-04 15:41 | XMS_ITS | Encounter Summary ---
:1995 Author Organization [employer] Address [address], [place] [address] Care Team Providers Name Role Phone Rob Tillman MD Primary Care Provider Reason for Visit Reason Comments [facility] Encounter Details Date Type Department Care Team Description 11/01/2019 Telephone [facility] Humera Bush MD [facility] [facility] 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 No return call is being requested. [Rotary Drier Operator: If the pt is calling after 3:30pm, was the caller reminded that their call may not be returned until the following day: No not after 330] Karuna Church documented in this encounter Plan of Treatment Upcoming Encounters Date Type Specialty Care Team Description 06/12/2022 Appointment Urology Raj Castro MD [address] [place], [place] [address] (Wo rk) 09/28/2022 Telemedicine Psychiatry Humera Bush MD [address] [place], [place] [address] (Wo rk) documented as of this encounter Visit Diagnoses Not on filedocumented in this encounter Care Teams Medical Device Sales Relationship Specialty Start Date End Date Rob Tillman MD PCP - General Physical Medicine and 08/01/19 295 [facility] [place] [place] [address] documented as of this encounter
--- OUTSIDE RECORDS SUMMARY | 2022-06-04 15:41 | XMS_ITS | Encounter Summary ---
:1995 Author Organization [employer] Address [address] [place] [address] Care Team Providers Name Role Phone Rob Tillman MD Primary Care Provider Encounter Details Date Type Department Care Team Description 12/18/2019 Office Visit [place] [facility] Sánchez Aceves, Obstructive sleep [address] 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 documented as of this encounter Progress [...] 06/12/2022 Appointment Urology Raj Castro MD [address] [place], [place] [address] (Wo rk) 09/28/2022 Telemedicine Psychiatry Humera Bush MD [address] [place], [place] [address] (Wo rk) documented as of this encounter Visit Diagnoses Diagnosis Obstructive sleep apnea - Primary Obstructive sleep apnea (adult) (pediatr ic) documented in this encounter Care Teams Client Coordinator Relationship Specialty Start Date End Date Rob Tillman MD PCP - General Physical Medicine and 08/01/19 295 [facility] [place] [place] [address] documented as of this encounter
--- OUTSIDE RECORDS SUMMARY | 2022-06-04 15:41 | XMS_ITS | Encounter Summary ---
:1996 Author Organization [employer] Address [address] [place] [address] Care Team Providers Name Role Phone Rob Tillman MD Primary Care Provider Reason for Visit Reason Onset Date Comments [facility] 09/16/2020 Refill 09/16/2020 methylphenidate (CON CERTA) 54 MG controlled release tablet Encounter Details Date Type Department Care Team Description 09/16/2020 Refill [facility] Psychiat ry Humera Bush [place]; Refill [address] Ellington MD (methylphenidate [address] (CONCERTA) 54 [place] [address] controlled release [id number] tablet) [phone] Social History Tobacco Use Types Packs/Day Years Used Date Smoking Tobacco: Never Smokeless Tobacco: Never Alcohol Use Standard Drinks/Week Comments Yes 0 (1 standard drink = 0.6 oz pure alcoho l) occasional Sex Assigned at Date Recorded 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 Tomeka Adams RN 09/16/2020, 3:11 PM Lisa Chavez - 09/16/2020 2:19 PM CDT Due to insurance change patient request [facility] pharmacy going forward. Marking as high priority - patient out of medication documented in this encounter Plan of Treatment Upcoming Encounters Date Type Specialty Care Team Description 06/12/2022 Appointment Urology Raj Castro MD [address] [place], [place] [address] (Wo rk) 09/28/2022 Telemedicine Psychiatry Humera Bush MD [address] [place], [place] [address] (Wo rk) documented as of this encounter Visit Diagnoses Not on filedocumented in this encounter Care Teams Nuclear Control Operator Relationship Specialty Start Date End Date Rob Tillman MD PCP - General Physical Medicine and 08/01/19 295 [facility] [place] [place] [address] documented as of this encounter
--- OUTSIDE RECORDS SUMMARY | 2022-06-04 15:41 | XMS_ITS | Encounter Summary ---
:1996 Author Organization [employer] Address [address] [place] [address] Care Team Providers Name Role Phone Rob Tillman MD Primary Care Provider Encounter Details Date Type Department Care Team Description 03/15/2020 Telemedicine [facility] Humera Bush, ADHD (attention deficit hype ractivity disorder), inattentive type (Primary Dx); [address] 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 Humrea Bush MD This note created using speech-recognition software and may contain unintended word substitutions. documented in this encounter Plan of Treatment Upcoming Encounters Date Type Specialty Care Team Description 06/12/2022 Appointment Urology Raj Castro MD [address] [place], [place] [address] (Wo rk) 09/28/2022 Telemedicine Psychiatry Humera Bush MD [address] [place], [place] [address] (Wo rk) documented as of this encounter Visit Diagnoses Diagnosis ADHD (attention deficit hyperactivity di sorder), inattentive type (HRC) - Primary Attention deficit disorder with hyperact ivity Nonverbal learning disorder Spina bifida, unspecified hydrocephalus presence, unspecified spinal region (HRC) Anxiety (HRC) Anxiety state, unspecified documented in this encounter Care Teams Gas Cutter Relationship Specialty Start Date End Date Rob Tillman MD PCP - General Physical Medicine and 08/01/19 295 [facility] [place] [address] documented as of this encounter
--- OUTSIDE RECORDS SUMMARY | 2022-06-04 15:41 | XMS_ITS | Encounter Summary ---
:1996 Author Organization [employer] Address [address] [place] [address] Care Team Providers Name Role Phone Rob Tillman MD Primary Care Provider Reason for Visit Reason Comments Rachelle Increased Depression Medication Request Encounter Details Date Type Department Care Team Description 11/15/2019 Telephone [facility] Humera Bush [place]; Increased [address] 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 documented as of this encounter Nursing [...] needs refill on Wellbutrin, Methylphenidate and Sertraline [Debit Agent: If the pt is calling after 3:30pm, was the caller reminded that their call may not be returned until the following day: Yes] Soraya Mcmullen documented in this encounter Plan of Treatment Upcoming Encounters Date Type Specialty Care Team Description 06/12/2022 Appointment Urology Raj Castro MD [address] [place], [place] [address] (Wo rk) 09/28/2022 Telemedicine Psychiatry Humera Bush MD [address] [place], [place] [address] (Wo rk) documented as of this encounter Visit Diagnoses Not on filedocumented in this encounter Care Teams Publishing Specialist Relationship Specialty Start Date End Date Rob Tillman MD PCP - General Physical Medicine and 08/01/19 295 [facility] [place] [place] [address] documented as of this encounter
--- OUTSIDE RECORDS SUMMARY | 2022-06-04 15:41 | XMS_ITS | Encounter Summary ---
:1995 Author Organization [employer] Address [address] [place] [address] Care Team Providers Name Role Phone Rob Tillman MD Primary Care Provider Encounter Details Date Type Department Care Team Description 04/20/2020 Lab Visit [facility] Hodgkin lymphoma, [address] unspecified, [place] [address] axilla and upper limb (HRC) [phone] Social History Tobacco Use Types Packs/Day Years Used Date Smoking Tobacco: Never Smokeless Tobacco: Never Alcohol Use Standard Drinks/Week Comments Yes 0 (1 standard drink = 0.6 oz pure alcoho l) occasional Sex Assigned at Date Recorded 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 encounter Plan of Treatment Upcoming Encounters Date Type Specialty Care Team Description 06/12/2022 Appointment Urology Raj Castro MD [address] [place], [place] [address] (Wo rk) 09/28/2022 Telemedicine Psychiatry Humera Bush MD [address] [place], [place] [address] (Wo rk) documented as [...] (04/20/2020 9:39 AM CDT) Analysis Performed At [facility] Time Signature WBC 3.2 (L) 3.5 - 10.5 04/20/2020 [facility] x10(9)/L 9:44 AM CDT RBC 5.19 4.32 - 04/20/2020 [facility] 5.72 9:44 AM CDT x10(12)/L Hemoglobin 16.2 13.5 - 04/20/2020 [facility] 17.5 g/dL 9:44 AM CDT HCT 45.8 38.8 - 04/20/2020 [facility] 50.0 % 9:44 AM CDT MCV 88.2 80.0 - 04/20/2020 [facility] 100.0 fL 9:44 AM CDT MCH 31.2 27.6 - 04/20/2020 [facility] 33.3 pg 9:44 AM CDT MCHC 35.4 (H) 31.5 - 04/20/2020 [facility] 35.2 g/dL 9:44 AM CDT RDW 11.9 11.9 - 04/20/2020 [facility] 15.5 % 9:44 AM CDT Platelets 201 150 - 450 04/20/2020 [facility] x10(9)/L 9:44 AM CDT Neutrophil 1.5 (L) 1.7 - 7.0 04/20/2020 [facility] Absolute 10(9)/L 9:44 AM CDT Lymphocyte 1.1 1.0 - 4.8 04/20/2020 [facility] Absolute 10(9)/L 9:44 AM CDT Monocytes 0.4 0.2 - 0.9 04/20/2020 [facility] Absolute 10(9)/L 9:44 AM CDT Eosinophil 0.1 0.0 - 0.5 04/20/2020 [facility] Absolute 10(9)/L 9:44 AM CDT Basophil 0.1 0.0 - 0.3 04/20/2020 [facility] Absolute 10(9)/L 9:44 AM CDT Immature Gran % 0.0 0.0 - 0.5 04/20/2020 [facility] % 9:44 AM CDT Specimen Anatomical Collection Method / Collection Time Recei rufus Time (Source) Location / Volume Laterality Blood Venipuncture / 04/20/2020 9:39 04/20/2020 9:39 Unknown AM CDT AM CDT Wyatt Oneil MD LAB_1 Performing Organization Address City/State/ZIP Code Phon e Number [facility] [address] [place] [address] ESR (Sedimentation Rate) (04/20/2020 9:39 AM CDT) Analysis Performed At Patho logist Time Signature Sedimentation Rate 1 0 - 15 04/20/2020 [facility] mm/hr 10:19 AM CDT Specimen Anatomical Collection Method / Collection Time Recei rufus Time (Source) Location / Volume Laterality Blood Venipuncture / 04/20/2020 9:39 04/20/2020 9:39 Unknown AM CDT AM CDT Wyatt Oneil MD LAB_1 Performing Organization Address City/State/ZIP Code Phon e Number [facility] [address] [place] [address] Lactate Dehydrogenase (LDH) (04/20/2020 9:39 AM CDT) athologist Signature LD 176 119 - 235 04/20/[address] [facility] U/L 4:41 PM CDT LABORATORY Specimen Anatomical Collection Method / Collection Time Recei rufus Time (Source) Location / Volume Laterality Blood Venipuncture / 04/20/2020 9:39 04/20/2020 9:39 Unknown AM CDT AM CDT Wyatt Oneil MD LAB_1 Performing Organization Address City/[facility]/ZIP Code Phon e Number [facility] [address] [place] [address] Liver Panel (Hepatic Function Panel) - STAT (04/20/2020 9:39 AM CDT) athologist Signature Alkaline 69 40 - 150 04/20/2020 [facility] Phosphatase U/L 4:41 PM CDT LABORATORY Bilirubin, Total 0.6 0.2 - 1.2 04/20/2020 [facility] mg/dL 4:41 PM CDT LABORATORY Bilirubin, 0.3 0.0 - 0.5 04/20/2020 [facility] Direct mg/dL 4:41 PM CDT LABORATORY AST (SGOT) 27 10 - 40 04/20/2020 [facility] U/L 4:41 PM CDT LABORATORY ALT (SGPT) 28 0 - 55 U/L 04/20/2020 [facility] 4:41 PM CDT LABORATORY Protein, Total 7.0 6.4 - 8.3 04/20/2020 [facility] g/dL 4:41 PM CDT LABORATORY Albumin 4.7 3.5 - 5.0 04/20/2020 [facility] g/dL 4:41 PM CDT LABORATORY Specimen Anatomical Collection Method / Collection Time Recei rufus Time (Source) Location / Volume Laterality Blood Venipuncture / 04/20/2020 9:39 04/20/2020 9:39 Unknown AM CDT AM CDT Wyatt Oneil MD LAB_1 Performing Organization Address City/[facility]/ZIP Code Phon e Number [facility] [address] [place] [address] Basic Metabolic Panel - STAT (04/20/2020 9:39 AM CDT) P athologist Signature Sodium 140 136 - 145 04/20/2020 [facility] mmol/L 4:41 PM CDT LABORATORY Potassium 4.0 3.5 - 5.1 04/20/2020 [facility] mmol/L 4:41 PM CDT LABORATORY Chloride 103 98 - 109 04/20/2020 [facility] mmol/L 4:41 PM CDT LABORATORY CO2 29 20 - 29 04/20/2020 [facility] mmol/L 4:41 PM CDT LABORATORY Anion Gap 8 7 - 16 04/20/2020 [facility] mmol/L 4:41 PM CDT LABORATORY Calcium 9.7 8.4 - 10.4 04/20/2020 [facility] mg/dL 4:41 PM CDT LABORATORY BUN 14 7 - 26 04/20/2020 [facility] mg/dL 4:41 PM CDT LABORATORY Creatinine 0.90 0.73 - 04/20/2020 [facility] 1.18 mg/dL 4:41 PM CDT LABORATORY GFR, Estimated >60 >60 04/20/2020 [facility] mL/min/1.7 4:41 PM CDT LABORATORY 3m2 Glucose 84 70 - 100 04/20/2020 [facility] mg/dL 4:41 PM CDT LABORATORY Comment: The [...] Wyatt Oneil MD LAB_1 Performing Organization Address City/[facility]/ZIP Code Phon e Number [facility] [address] [place], [place] [phone] [facility] [address] [place] [address], [facility] TSH with Free T4 (if TSH Abnormal) (04/20/2020 9:39 AM CDT) P athologist Signature TSH, Reflex 3.00 0.30 - 4.50 04/20/2020 [facility] uIU/mL 5:14 PM CDT LABORATORY Specimen Anatomical Collection Method / Collection Time Recei rufus Time (Source) Location / Volume Laterality Blood Venipuncture / 04/20/2020 9:39 04/20/2020 9:39 Unknown AM CDT AM CDT Narrative [facility] - 04/20/2020 5:14 P M CDT Lab will automatically reflex to Free T4 when TSH results are <0.30 uIU/mL or >4.50 mIU/mL. Wyatt Oneil MD LAB_1 Performing Organization Address City/State/ZIP Code Phon e Number [facility] [address] [place] [address] documented in this encounter Visit Diagnoses Diagnosis Hodgkin lymphoma, unspecified, lymph nod es of axilla and upper limb (HRC) documented in this encounter Care Teams English Language Learner Tutor Relationship Specialty Start Date End Date Rob Tillman MD PCP - General Physical Medicine and 08/01/19 295 [facility] Rehabilitation [place], [place] [phone] documented as of this encounter
--- OUTSIDE RECORDS SUMMARY | 2022-06-04 15:41 | XMS_ITS | Encounter Summary ---
:1996 Author Organization [employer] Address [address] [place] [address] Care Team Providers Name Role Phone Rob Tillman MD Primary Care Provider Encounter Details Date Type Department Care Team Description 11/30/2019 Telemedicine [place] [place] [facility] Humera Bush, Nonverbal learning disorder (Primary Dx); [address] [place] [address] ADHD (attention deficit hyperactivity di sorder), inattentive type; [address]. 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 Acetylcysteine (R-[id number]-CYSTEINE OR) 1200mg daily ??? ARIPiprazole (ABILIFY) 5 [...] status requirements. He is now suspended from [facility]. He needs to write a letter of [...] situation. He is also working with his community administrator for housing options. He found an apartment [...] mom and dad to work with the test case developer and soham soriano to assist him in the steps to move out. They will then put in test case developer, ILS worker,ARMHS worker in place in the [...] no/limited extracurricular activities Education: Now suspended from [facility] Therapy: None Other Services: I KATHERINE worker, on hold due to COVID-19, [facility] test case developer, waiver in place Mental Status Exam: lFy is a very superficially bright 24-year-old. Eye [...] as Community Services as he transitions to [place] Humera Bush MD This note created using speech-recognition software and may contain unintended word substitutions. documented in this encounter Plan of Treatment Upcoming Encounters Date Type Specialty Care Team Description 06/12/2022 Appointment Urology Raj Castro MD [address] [place] [address] (Wo rk) 09/28/2022 Telemedicine Psychiatry Humera Bush MD [address] [place], [place] [address] (Wo rk) documented as of this encounter Visit Diagnoses Diagnosis Nonverbal learning disorder - Primary ADHD (attention deficit hyperactivity di sorder), inattentive type (HRC) Attention deficit disorder with hyperact ivity Spina bifida, unspecified hydrocephalus presence, unspecified spinal region (HRC) Anxiety (HRC) Anxiety state, unspecified documented in this encounter Care Teams Waiter/Waitress Tavern Relationship Specialty Start Date End Date Rob Tillman MD PCP - General Physical Medicine and 08/01/[address] [place] [address] [place] [address] documented as of this encounter
--- OUTSIDE RECORDS SUMMARY | 2022-06-04 15:41 | XMS_ITS | Encounter Summary ---
:1996 Author Organization [employer] Address [address] [place] [address] Care Team Providers Name Role Phone Rob Tillman MD Primary Care Provider Reason for Visit Reason Comments Other mushroom picker from [place], [employer] trac hedy # [id number] Encounter Details Date Type Department Care Team Description 12/18/2019 Telephone [place] [facility] Lisa Haddad, Kra[place] (mushroom picker from [place], [address] 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 AVA Meng documented in this encounter Plan of Treatment Upcoming Encounters Date Type Specialty Care Team Description 06/12/2022 Appointment Urology Raj Castro MD [address] [place], [place] [address] (Wo rk) 09/28/2022 Telemedicine Psychiatry Humera Bush MD [address] [place], [place] [address] (Wo rk) documented as of this encounter Visit Diagnoses Not on filedocumented in this encounter Care Teams Pest Control Pilot Relationship Specialty Start Date End Date Rob Tillman MD PCP - General Physical Medicine and 08/01/19 295 [facility] [place] [address] documented as of this encounter
--- OUTSIDE RECORDS SUMMARY | 2022-06-04 15:41 | XMS_ITS | Encounter Summary ---
:1995 Author Organization [employer] Address [address] [place] [address] Care Team Providers Name Role Phone Rob Tillman MD Primary Care Provider Reason for Referral Procedure/Equipment (Routine) - Closed Specialty Diagnoses / Procedures Referred By Contact Refer red To Contact Diagnoses Neurogenic bladder Raj Castro MD [address] [place] [address] Referral ID Status Reason Start Date Expiration Date Visits Requ ested Visits Authorized [id number] Closed 09/17/2020 12/17/2021 1 1 Scheduling Instructions . Reason for Visit Reason Comments Follow-up kindey ultrasound Encounter Details Date Type Department Care Team Description 09/17/2020 Office Visit Specialty Center Raj Castro, Allyson rogenic bladder [facility] (Primary Dx) 435 [facility]. 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 For Xray, CT test, and Ultrasound [...] you! Get Cost of Care Estimates - [phone] The health insurance marketplace has changed dramatically in the last few years. Our cost of care service will provide estimates over the phone for treatments or procedures billed through [facility]. To receive a cost estimate, simply call [phone] during regular business hours. If you have [...] testing (also called cystometry) please go to [email or web address] and type in the search box ???urodynamics?? . ??? If there are special needs that you have or questions you need answered, please contact [phone]. What is urodynamic testing? Urodynamic testing is [...] can you learn more? 1. Go to [email or web address]. 2. Enter S106 in the search box. Current as of: December 25, 2019?Content Version: 12.8 ?? [employer]ocal. Care instructions adapted under license by your healthcare professional. If you have questions abouta medical condition or this instruction, always ask your healthcare professional. [employer] disclaims any warranty or liability for your [...] software. Please excuse any typographical errors in geothermal system installer Subjective Fly Moran is a 25 y.o. [...] ? Molds & Smuts Other, see comments [place] mold- Respiratory Distress ??? Other Swelling Spider [...] 06/12/2022 Appointment Urology Raj Castro MD [address] [place], [place] [address] (Wo rk) 09/28/2022 Telemedicine Psychiatry Humera Bush MD [address] [place], [place] [address] (Wo rk) Scheduled Referrals Name Type Priority Associated Diagnoses Order S chedule URODYNAMICS (UDS) Referral Routine Neurogenic bladder Orde red: 09/17/2020 documented as of this encounter Results Creatinine / GFR (09/17/2020 4:22 PM CDT) [facility] Method Time Signature Creatinine 0.82 0.73 - 09/17/2020 [facility] 1.18 6:52 PM CDT [facility] mg/dL GFR, Estimated >60 >60 09/17/2020 [facility] mL/min/1. 6:52 PM CDT [facility] 73m2 Specimen Anatomical Collection Method / Collection Time Recei rufus Time (Source) Location / Volume Laterality Blood Venipuncture / 09/17/2020 4:22 09/17/2020 4:22 Unknown PM CDT PM CDT Raj Castro MD LAB_1 Performing Organization Address City/State/ZIP Code Phon e Number [facility] [address] [place] [address] documented in this encounter Visit Diagnoses Diagnosis Neurogenic bladder - Primary Neurogenic bladder, NOS documented in this encounter Care Teams Certified Adapted Physical Educator Relationship Specialty Start Date End Date Rob Tillman MD PCP - General Physical Medicine and 08/01/[address] [place] [address] [place] [address] documented as of this encounter
--- OUTSIDE RECORDS SUMMARY | 2022-06-04 15:41 | XMS_ITS | Encounter Summary ---
:1995 Author Organization [employer] Address [address] [place] [address] Care Team Providers Name Role Phone Rob Tillman MD Primary Care Provider Reason for Visit Reason Onset Date Comments Reeve 06/18/2020 Refill 06/18/2020 Encounter Details Date Type Department Care Team Description 06/18/2020 Refill [facility] Humera Guerrero MD Re[place]; Refill 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 Tomeka Adams RN 06/19/2020, 10:57 AM NT BLOCK MAKER Anabel Funk - 06/19/2020 10:38 AM CST F/u 07/09 Anabel Funk NT BLOCK MAKER Stacy Leach - 06/18/2020 9:50 AM CST Lm Tcb X1. NT BLOCK MAKER Tomeka Adams RN - 06/18/2020 9:12 AM CST No follow up appointment scheduled. Last seen 04/12/20 and was to return in 1 month. Will route to clinical dental technician to attempt to schedule patient. Please route back to nursing to authorize once scheduled for appointment. Thanks. Tomeka Adams RN 06/18/2020, 9:12 AM NT BLOCK MAKER Lynette Joshi - 06/18/2020 8:05 AM CST PT doesn't have a dose for today - totally out. Lynette Joshi 06/18/2020, 8:06 AM NT BLOCK MAKER documented in this encounter Plan of Treatment Upcoming Encounters Date Type Specialty Care Team Description 06/12/2022 Appointment Urology Raj Castro MD [address] [facility] [place] [place] [address] (Wo rk) 09/28/2022 Telemedicine Psychiatry Humera Bush MD [address] [place], [place] [address] (Wo rk) documented as of this encounter Visit Diagnoses Not on filedocumented in this encounter Care Teams Finisher Machine Relationship Specialty Start Date End Date Rob Tillman MD PCP - General Physical Medicine and 08/01/19 [address] [facility] [address] documented as of this encounter
--- OUTSIDE RECORDS SUMMARY | 2022-06-04 15:41 | XMS_ITS | Encounter Summary ---
:1995 Author Organization [employer] Address [address] [place] [address] Care Team Providers Name Role Phone Rob Tillman MD Primary Care Provider Reason for Visit Reason Onset Date Comments Video Visit 12/13/2019 Consult/Transfer Care (Routine) - Closed Specialty Diagnoses / Procedures Referred By Contact Refer red To Contact Diagnoses LAUREL (obstructive sleep apnea) Ruth Ann Khan PA-C [address] [place] [address] Referral ID Status Reason Start Date Expiration Date Visits Requ ested Visits Authorized [id number] Closed 07/05/2019 10/03/2020 1 1 Encounter Details Date Type Department Care Team Description 12/13/2019 Telemedicine [place] TMD Sánchez Aceves, Obstructive sleep [address] 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 [place] Score: [place] Score: 14 Neck Circumference: 14.5 ? Device [...] and adjustments to the oral appliance, and long term care pharmacist follow up visits. I explained the need [...] 06/12/2022 Appointment Urology Raj Castro MD [address] [place], [place] [address] (Wo rk) 09/28/2022 Telemedicine Psychiatry Humera Bush MD [address] [place], [place] [address] (Wo rk) Scheduled Referrals Name Type Priority Associated Diagnoses Order S chedule Dental Sleep Apnea Referral Routine LAUREL (obstructive sleep Ordered: 07/05/2019 Consult apnea) documented as of this encounter Visit Diagnoses Diagnosis Obstructive sleep apnea (adult) (pediatr ic) - Primary documented in this encounter Care Teams Rackman Relationship Specialty Start Date End Date Rob Tillman MD PCP - General Physical Medicine and 08/01/19 295 [facility] Rehabilitation [place], [place] [id number] documented as of this encounter
--- OUTSIDE RECORDS SUMMARY | 2022-06-04 15:41 | XMS_ITS | Encounter Summary ---
:1995 Author Organization [facility] Address [address] [place] [address] Care Team Providers Name Role Phone Rob Tillman MD Primary Care Provider Reason for Visit Reason Comments Video Visit Spina bifida without hydroce phalus, unspecified spinal region Encounter Details Date Type Department Care Team Description 02/09/2020 Telemedicine [facility] Rob Tillman Spina bifi da without hydrocephalus, unspecified spinal region (HRC) (Primary Dx); [facility] MD Sophie Neurogenic bladder; Physical Medicine [address] Neurogenic bowel; [address] 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 Fly [...] ? Molds & Smuts Other, see comments [place] mold- Respiratory Distress ??? Other Swelling Spider [...] [facility]. ?? Plan: 1. Patient [...] 06/12/2022 Appointment Urology Raj Castro MD [address] [facility] [place], [place] [address] (Jeannie osei) 09/28/2022 Telemedicine Psychiatry Humera Bush MD [address] [place], [place] [address] (Jeannie osei) documented as of this encounter Visit Diagnoses Diagnosis Spina bifida without hydrocephalus, unsp ecified spinal region (HRC) - Primary Neurogenic bladder Neurogenic bladder, NOS Neurogenic bowel Gait abnormality Abnormality of gait documented in this encounter Care Teams Supervisor Cooperage Shop Relationship Specialty Start Date End Date Rob Tillman MD PCP - General Physical Medicine and 08/01/[address] [place] [address] [place] [address] documented as of this encounter
--- OUTSIDE RECORDS SUMMARY | 2022-06-04 15:41 | XMS_ITS | Encounter Summary ---
:1995 Author Organization [employer] Address [address] [place] [address] Care Team Providers Name Role Phone Rob Tillman MD Primary Care Provider Reason for Visit Reason Comments Rachelle FYI Encounter Details Date Type Department Care Team Description 05/02/2020 Telephone [place] [facility] Humera Bush MD [place]; FYI 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 Tomeka Adams RN 05/02/2020, 9:23 AM RT/EXPORT ADMINISTRATOR Gayla Kiran - 05/02/2020 9:14 AM CST Miscellaneous Questions & FYI's Is this a question/concern or an FYI? FYI What is your comment or FYI? Pt is wanting to let Dr Bush know that he wants to continue using [facility] for his medications, if any questions ok to call back Is it okay to leave a detailed message on your voicemail? No [Environmental Field Services Technician: If the pt is calling after 3:30pm, was the caller reminded that their call may not be returned until the following day: No] Gayla Kiran RT/EXPORT ADMINISTRATOR documented in this encounter Plan of Treatment Upcoming Encounters Date Type Specialty Care Team Description 06/12/2022 Appointment Urology Rja Castro MD [address] [place], [place] [address] (Wo rk) 09/28/2022 Telemedicine Psychiatry Humera Bush MD [address] [place], [place] [address] (Wo rk) documented as of this encounter Visit Diagnoses Not on filedocumented in this encounter Care Teams Eyeglass Inspector Relationship Specialty Start Date End Date Rob Tillman MD PCP - General Physical Medicine and 08/01/19 295 [facility] [place] [address] documented as of this encounter
--- OUTSIDE RECORDS SUMMARY | 2022-06-04 15:41 | XMS_ITS | Encounter Summary ---
:1995 Author Organization [employer] Address [address] [place] [address] Care Team Providers Name Role Phone Rob Tillman MD Primary Care Provider Reason for Visit Reason Onset Date Comments Reeve 03/05/2020 Refill 03/05/2020 concerta Encounter Details Date Type Department Care Team Description 03/05/2020 Refill [facility] Humera Bush [place]; Refill [address] 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 Tomeka Adams RN 03/05/2020, 11:08 AM documented in this encounter Plan of Treatment Upcoming Encounters Date Type Specialty Care Team Description 06/12/2022 Appointment Urology Raj Castro MD [address] [place], [place] [address] (Wo rk) 09/28/2022 Telemedicine Psychiatry Humera Bush MD [address] [place], [place] [address] (Wo rk) documented as of this encounter Visit Diagnoses Not on filedocumented in this encounter Care Teams Card Table Attendant Relationship Specialty Start Date End Date Rob Tillman MD PCP - General Physical Medicine and 08/01/19 [address] [facility] [place] [address] documented as of this encounter
--- OUTSIDE RECORDS SUMMARY | 2022-06-04 15:41 | XMS_ITS | Encounter Summary ---
:1995 Author Organization [employer] Address [address] [place] [address] Care Team Providers Name Role Phone Rob Tillman MD Primary Care Provider Reason for Visit Reason Comments Follow Up Asthma Encounter Details Date Type Department Care Team Description 07/19/2020 Telephone [facility] Rob Tillman MD Follow Up Asthma [address] [facility] [place] [address] [place] [address] [place], [place] [phone] Social History Tobacco Use Types Packs/Day Years Used Date Smoking Tobacco: Never Smokeless Tobacco: Never Alcohol Use Standard Drinks/Week Comments Yes 0 (1 standard drink = 0.6 oz pure alcoho l) occasional Sex Assigned at Date Recorded 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 ACT Score was Asthma Control Test - Adult 07/19/2020 ACT Total 25 Risk Assessment 0 ACTION: Patient has no questions or concerns. Encounter closed. T CUTTER documented in this encounter Plan of Treatment Upcoming Encounters Date Type Specialty Care Team Description 06/12/2022 Appointment Urology Raj Castro MD [address] [place], [place] [address] (Wo rk) 09/28/2022 Telemedicine Psychiatry Humera Bush MD [address] [place], [place] [address] (Wo rk) documented as of this encounter Visit Diagnoses Not on filedocumented in this encounter Care Teams Linux Devops Engineer Relationship Specialty Start Date End Date Rob Tillman MD PCP - General Physical Medicine and 08/01/19 [address] [facility] [place] [address] documented as of this encounter
--- OUTSIDE RECORDS SUMMARY | 2022-06-04 15:41 | XMS_ITS | Encounter Summary ---
:1995 Author Organization [facility] Address [address] [place] [address] Care Team Providers Name Role Phone Rob Tillman MD Primary Care Provider Encounter Details Date Type Department Care Team Description 04/18/2020 Telemedicine [facility] Cancer Wyatt Oneil lymphoma, unspecified, lymph nodes of axilla and upper limb (HRC) (Primary Dx); Center at [facility] MD Brina Spina bifida, unspecified hydrocephalus presence, unspecified spinal region (HRC) [address] [phone] Social History Tobacco Use Types Packs/Day Years Used Date Smoking Tobacco: Never Smokeless Tobacco: Never Alcohol Use Standard Drinks/Week Comments Yes 0 (1 standard drink = 0.6 oz pure alcoho l) occasional Sex Assigned at Date Recorded Male 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 2. Mild neutropenic persistent lab testing at [facility] in June 2017. ?? TREATMENT: Four months of the ABVe-PC chemotherapy followed by 2100 cGy of radiation to the chest and mediastinum, completed in June 2013. PLAN: Arrange lab visit (orders entered) Return 1 year for in person or video visit Wyatt Oneil MD - Lab appointment tomorrow, 04/19/20 @11:00am at the [facility] ([id number] [id number]). - You have been added to Dr. Oneil's March 2021 waitlist. Our office will contact you closer to that time for scheduling. Patient aware + AVS Mailed. Jaquan Mccain 04/18/2020, 9:05 AM documented in this encounter Progress Notes Wyatt Oneil MD - 04/18/2020 8:30 AM CDT This office note has been dictated. [id number] Wyatt Oneil MD Vani Oneal RN - 04/18/2020 8:30 AM CDT Completed per provider's orders. QOPI: Is patient starting new chemotherapy medications today or in the near future? No Vani Oneal RN 04/18/2020 9:33 AM Wyatt Oneil MD - 04/18/2020 12:00 AM CDT LUCÍA MARTINEZ CSN: [id number] CLINIC NOTE DATE OF SERVICE: 04/18/2020 : 1995 DIAGNOSES: 1. 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 I can call him with the results. Return to clinic in 1 year for an in-person or video visit. WYATT ONEIL MD [facility]/ANJALIL /[id number] documented in this encounter Plan of Treatment Upcoming Encounters Date Type Specialty Care Team Description 06/12/2022 Appointment Urology Raj Castro MD [address] [place], [place] [address] (Wo rk) 09/28/2022 Telemedicine Psychiatry Humera Bush MD [address] [place], [place] [address] (Wo rk) documented as of this encounter Visit Diagnoses Diagnosis Hodgkin lymphoma, unspecified, lymph nod es of axilla and upper limb (HRC) - Primary Spina bifida, unspecified hydrocephalus presence, unspecified spinal region (HRC) documented in this encounter Care Teams Lubrication Worker Relationship Specialty Start Date End Date Rob Tillman MD PCP - General Physical Medicine and 08/01/19 295 [facility] Rehabilitation [place], [place] [phone] documented as of this encounter
--- OUTSIDE RECORDS SUMMARY | 2022-06-04 15:41 | XMS_ITS | Encounter Summary ---
:1995 Author Organization [email or web address] Address [address] [place] [address] Care Team Providers Name Role Phone Rob Tillman MD Primary Care Provider Encounter Details Date Type Department Care Team Description 02/26/2020 Office Visit [place] [facility] Sánchez Aceves, Obstructive sleep [address] 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 AM welding machine operator arc made and explained how to use daily, [...] Appointment Urology Raj Castro MD [address] [place], [place] [address] (Wo rk) 09/28/2022 Telemedicine Psychiatry Humera Bush MD [address] [place], [place] [address] (Wo rk) documented as of this encounter Visit Diagnoses Diagnosis Obstructive sleep apnea (adult) (pediatr ic) - Primary documented in this encounter Care Teams Surgical Dressing Maker Relationship Specialty Start Date End Date Rob Tillman MD PCP - General Physical Medicine and 08/01/19 [address] [facility] [place] [place] [address] documented as of this encounter
--- OUTSIDE RECORDS SUMMARY | 2022-06-04 15:41 | XMS_ITS | Encounter Summary ---
:1995 Author Organization [employer] Address [address], [place] [address] Care Team Providers Name Role Phone Rob Tillman MD Primary Care Provider Reason for Visit Reason Comments Forms Encounter Details Date Type Department Care Team Description 12/19/2019 Telephone [employer] Neuroscience Stalin son, Rob Barrios MD Forms Center Physical Medi cine [address] 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 Form sent to cathy. Billy Thomas 12/21/2019, 8:54 AM Karuna Woods RN - 12/20/2019 1:39 PM CDT CA: please send completed form to appropriate location. Karuna Woods RN Rob Tillman MD - 12/20/2019 1:36 PM CDT Form completed, given to clinical project leader for faxing. Rob Tillman MD 12/20/2019, 1:36 PM Beverley Oliver - 12/19/2019 2:19 PM CDT Printed and placed on providers desk Billy Thomas - 12/19/2019 9:36 AM CDT Images from the original note were not included. Received a prescription form & letter of medical necessity from [facility] [employer] and placed into provider rightfax folder. Please advise Billy Thomas 12/19/2019, 9:36 AM documented in this encounter Plan of Treatment Upcoming Encounters Date Type Specialty Care Team Description 06/12/2022 Appointment Urology Raj Castro MD [address] [place], [place] [address] (Wo rk) 09/28/2022 Telemedicine Psychiatry Humera Bush MD [address] [place], [place] [address] (Wo rk) documented as of this encounter Visit Diagnoses Not on filedocumented in this encounter Care Teams Live Truck Technician Relationship Specialty Start Date End Date Rob Tillman MD PCP - General Physical Medicine and 08/01/19 295 [facility] Rehabilitation [place], [place] [phone] documented as of this encounter
--- OUTSIDE RECORDS SUMMARY | 2022-06-04 15:41 | XMS_ITS | Encounter Summary ---
:1995 Author Organization [email or web address] Address [address] [place] [address] Care Team Providers Name Role Phone Rob Tillman MD Primary Care Provider Reason for Visit Reason Comments Other worm picker Encounter Details Date Type Department Care Team Description 12/18/2019 Telephone [place] TMD Lisa Haddad LDA Other (worm picker) 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 AVA Meng documented in this encounter Plan of Treatment Upcoming Encounters Date Type Specialty Care Team Description 06/12/2022 Appointment Urology Raj [place] MD [address] [place] [phone] (Wo rk) 09/28/2022 Telemedicine Psychiatry Humera Bush MD [address] [place], [place] [address] (Wo rk) documented as of this encounter Visit Diagnoses Not on filedocumented in this encounter Care Teams Lime Mixer Tender Relationship Specialty Start Date End Date Rob Tillman MD PCP - General Physical Medicine and 08/01/[address] [place] [address] [place] [address] documented as of this encounter
--- OUTSIDE RECORDS SUMMARY | 2022-06-04 15:41 | XMS_ITS | Encounter Summary ---
:1995 Author Organization [facility] Address [address] [place] [address] Care Team Providers Name Role Phone Rob Tillman MD Primary Care Provider Reason for Visit Reason Comments Forms [facility] Encounter Details Date Type Department Care Team Description 10/[facility]/2019 [facility] ([facility] Se[place] MD Sophie Physical Medicine [address] 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 Rob Tillman MD 10/27/2019, 1:29 PM Beverley Oliver - 10/26/2019 10:01 AM CDT Form printed and place on providers desk for signature. Golden Veloz - 10/25/2019 3:55 PM CDT Images from the original note were not included. Received prescription request form from [facility], placed in provider right fax folder for completion. Golden Veloz 10/25/2019, 3:58 PM documented in this encounter Plan of Treatment Upcoming Encounters Date Type Specialty Care Team Description 06/12/2022 Appointment Urology Raj [place] MD [address] [place], [place] [address] (Wo rk) 09/28/2022 Telemedicine Psychiatry Humera [place] MD [address] [place], [place] [address] (Wo rk) documented as of this encounter Visit Diagnoses Not on filedocumented in this encounter Care Teams Fur Cleaner Relationship Specialty Start Date End Date Rob Tillman MD PCP - General Physical Medicine and 08/01/19 295 [facility] [place] [place] [address] documented as of this encounter
--- OUTSIDE RECORDS SUMMARY | 2022-06-04 15:41 | XMS_ITS | Encounter Summary ---
:1996 Author Organization [employer] Address [address] [place] [address] Care Team Providers Name Role Phone Rob Tillman MD Primary Care Provider Encounter Details Date Type Department Care Team Description 06/04/2020 Office Visit 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 Jose G Aceves DDS, MS ESSOR OF LITERACY documented in this encounter Plan of Treatment Upcoming Encounters Date Type Specialty Care Team Description 06/12/2022 Appointment Urology Raj [place] MD [address] [place], [place] [address] (Wo rk) 09/28/2022 Telemedicine Psychiatry Humera [place] MD [address] [place], [place] [address] (Wo rk) documented as of this encounter Visit Diagnoses Diagnosis Obstructive sleep apnea (adult) (pediatr ic) - Primary documented in this encounter Care Teams Devops Solutions Architect Relationship Specialty Start Date End Date Rob Tillman MD PCP - General Physical Medicine and 08/01/19 295 [facility] [place] [address] documented as of this encounter
--- OUTSIDE RECORDS SUMMARY | 2022-06-04 15:41 | XMS_ITS | Encounter Summary ---
:1996 Author Organization [employer] Address [address] [place] [address] Care Team Providers Name Role Phone Rob Tillman MD Primary Care Provider Reason for Visit Reason Comments Rachelle Medication Request Encounter Details Date Type Department Care Team Description 03/15/2020 Telephone [facility] Humera Bush Reeve; Medication [address] [facility] 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
--- OUTSIDE RECORDS SUMMARY | 2022-06-04 15:41 | XMS_ITS | Encounter Summary ---
:1996 Author Organization [employer] Address [address] [place] [address] Care Team Providers Name Role Phone Rob Tillman MD Primary Care Provider Reason for Visit Reason Comments Revisit Encounter Details Date Type Department Care Team Description 11/30/2019 Phone Visit [facility] Scoliosis of t horacic spine, unspecified scoliosis type (Primary Dx); [facility] Alen Castro Hydrocephalus, unspecified type (HRC) Neurosurgery/Ortho [place] [address] 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 Consult for Neuromuscular scoliosis with Dr. Guilherme Wells ( [facility] [place]) 2. F/U in Jul 2021 with scoliosis [...] Sumi Wells from [facility] [place]. Dr. Wells is an expert in neuromuscular [...] the best - theoretically - in the adjunct faculty for medical terminology, attempting to fix it is more dangerous than leaving it alone.Hence we would just recommend f/u imaging - next CT early 2021. Time:20 min Matthew Hansen MD 11/30/2019, 4:14 PM documented in this encounter Plan of Treatment Upcoming Encounters Date Type Specialty Care Team Description 06/12/2022 Appointment Urology Raj [place] MD [address] [place], [place] [address] (Wo rk) 09/28/2022 Telemedicine Psychiatry Humera [place] MD [address] [place], [place] [address] (Wo rk) documented as of this encounter Visit Diagnoses Diagnosis Scoliosis of thoracic spine, unspecified scoliosis type - Primary Hydrocephalus, unspecified type (HRC) documented in this encounter Care Teams Die Casting Machine Setter Relationship Specialty Start Date End Date Rob Tillman MD PCP - General Physical Medicine and 08/01/19 295 [facility] [place] [address] documented as of this encounter
--- OUTSIDE RECORDS SUMMARY | 2022-06-04 15:42 | XMS_ITS | Encounter Summary ---
:1996 Author Organization [facility] Address [address], [place] [address] Care Team Providers Name Role Phone Rob Tillman MD Primary Care Provider Reason for Visit Reason Comments Revisit Spina bifida without hydroce phalus, unspecified spinal region (HRC) Encounter Details Date Type Department Care Team Description 10/09/2019 Telemedicine [facility] Rob Tillman Spina bifi da without hydrocephalus, unspecified spinal region (HRC) (Primary Dx); [facility] MD Sophie Gait abnormality Physical Medicine [address] 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 [...] clinic from Hope Cook at the [facility] for general SCI care and management. Fly [...] not in any formal therapies, working on [facility] Equipment: MWC, Madhavid crutches, awaiting formal wheelchair [...] Medication Sig Note Dispense Refill ??? Acetylcysteine (A-UOWWZB-X-CYSTEINE OR) 1200mg daily ??? ARIPiprazole (ABILIFY) 2 [...] ? Molds & Smuts Other, see comments [place] mold- Respiratory Distress ??? Other Swelling Spider [...] [facility]. ?? Plan: [...] 06/12/2022 Appointment Urology Raj [place] MD [address] [place], [place] [address] (Wo rk) 09/28/2022 Telemedicine Psychiatry Humera [place] MD [address] [place], [place] [address] (Wo rk) documented as of this encounter Visit Diagnoses Diagnosis Spina bifida without hydrocephalus, unsp ecified spinal region (HRC) - Primary Gait abnormality Abnormality of gait documented in this encounter Care Teams Director Digital Strategy Relationship Specialty Start Date End Date Rob Tillman MD PCP - General Physical Medicine and 08/01/19 295 [facility] [place] [address] documented as of this encounter
--- OUTSIDE RECORDS SUMMARY | 2022-06-04 15:42 | XMS_ITS | Encounter Summary ---
:1995 Author Organization [employer] Address [address], [place] [address] Care Team Providers Name Role Phone Rob Tillman MD Primary Care Provider Reason for Visit Reason Comments Rachelle UPDATE Encounter Details Date Type Department Care Team Description 10/05/2019 Telephone [facility] Humera [place] MD Re[place]; UPDATE 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 Yes [Bank Boss: If the pt is calling after 3:30pm, was the caller reminded that their call may not be returned until the following day: No] Is there anything else I can help you with today? no Barrett Larson documented in this encounter Plan of Treatment Upcoming Encounters Date Type Specialty Care Team Description 06/12/2022 Appointment Urology Raj [place] MD [address] [place], [place] [address] (Wo rk) 09/28/2022 Telemedicine Psychiatry Humera [place] MD [address] [place], [place] [address] (Wo rk) documented as of this encounter Visit Diagnoses Not on filedocumented in this encounter Care Teams Nanofabrication Specialist Relationship Specialty Start Date End Date Rob Tillman MD PCP - General Physical Medicine and 08/01/19 [address] [facility] [place] [place] [address] documented as of this encounter
--- OUTSIDE RECORDS SUMMARY | 2022-06-04 15:42 | XMS_ITS | Encounter Summary ---
:1995 Author Organization [facility] Address [address], [place] [address] Care Team Providers Name Role Phone Rob Tillman MD Primary Care Provider Reason for Visit Reason Comments ERRONEOUS ENTRY Encounter Details Date Type Department Care Team Description 08/30/2019 Telephone [facility] Germania [place] MD ERRONEOUS ENTRY Psychiatry [address] [place] [address], [place] [address] [facility] [place], [place] [phone] Social History Tobacco Use Types Packs/Day Years Used Date Smoking Tobacco: Never Smokeless Tobacco: Never Alcohol Use Standard Drinks/Week Comments Yes 0 (1 standard drink = 0.6 oz pure alcoho l) occasional Sex Assigned at Date Recorded 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 documented as of this encounter Nursing Notes Elsie Dyson RN - 08/30/2019 9:22 AM CST ATCH OFFICER documented in this encounter Plan of Treatment Upcoming Encounters Date Type Specialty Care Team Description 06/12/2022 Appointment Urology Raj [place] MD [address] [place] [phone] (Wo rk) 09/28/2022 Telemedicine Psychiatry Humera Bush MD [address] [place], [place] [address] (Wo rk) documented as of this encounter Visit Diagnoses Not on filedocumented in this encounter Care Teams Import And Export Clerk Relationship Specialty Start Date End Date Rob Tillman MD PCP - General Physical Medicine and 08/01/19 295 [facility] [place] [address] documented as of this encounter
--- OUTSIDE RECORDS SUMMARY | 2022-06-04 15:42 | XMS_ITS | Encounter Summary ---
:1996 Author Organization [employer] Address [address] [address] Care Team Providers Name Role Phone Rob Tillman MD Primary Care Provider Reason for Visit Reason Comments Revisit Renal US Encounter Details Date Type Department Care Team Description 09/07/2019 Office Visit Specialty Center Raj Castro, Allyson rogenic bladder 435 [facility] (Primary Dx) 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 For Xray, CT test, and Ultrasound results, [...] you! Get Cost of Care Estimates - [phone] The health insurance marketplace has changed dramatically in the last few years. Our cost of care service will provide estimates over the phone for treatments or procedures billed through [facility]. To receive a cost estimate, simply call [phone] during regular business hours. If you have [...] software. Please excuse any typographical errors in car cooper Subjective Fly Moran is a 24 y.o. [...] ? Molds & Smuts Other, see comments [place] mold- Respiratory Distress ??? Other Swelling Spider [...] than 50% of this time spent in [id number] counseling and coordination of cares). The total time is exclusive of time spent in the performance of procedures or any other separately billable service. Raj Castro MD documented in this encounter Plan of Treatment Upcoming Encounters Date Type Specialty Care Team Description 06/12/2022 Appointment Urology Raj Castro MD [address] [place], [place] [address] (Wo rk) 09/28/2022 Telemedicine Psychiatry Humera [place] MD [address] [place], [place] [address] (Wo rk) documented as of this encounter Visit Diagnoses Diagnosis Neurogenic bladder - Primary Neurogenic bladder, NOS documented in this encounter Care Teams Product Assurance Engineer Relationship Specialty Start Date End Date Rob Tillman MD PCP - General Physical Medicine and 08/01/19 [address] [facility] [place] [address] documented as of this encounter
--- OUTSIDE RECORDS SUMMARY | 2022-06-04 15:42 | XMS_ITS | Encounter Summary ---
:1996 Author Organization [facility] Address [address] [place] [address] Care Team Providers Name Role Phone Rob Tillman MD Primary Care Provider Reason for Visit Reason Comments LETTER NEEDED [facility]Letter/Certifi miguelangel of Medical Necessity. Encounter Details Date Type Department Care Team Description 08/28/2019 Telephone [facility] Rob Tillman LETTER NEE DED ([facility] MD Sophie Clinic-Letter/Certific Physical Medicine [address] ate of Medical [address] 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 [phone]. Sent to scanning. Josias Gee 08/29/2019, 8:39 AM ORATE STRATEGY ASSOCIATE Rob Tillman MD - 08/28/2019 4:43 PM CST Form completed, given to clinical transformation specialist for faxing. Rob Tillman MD 08/28/2019, 4:43 PM ORATE STRATEGY ASSOCIATE Chantelle Blank, RN - 08/28/2019 1:45 PM CST On MD desk Chantelle Blank RN 08/28/2019, 1:45 PM ORATE STRATEGY ASSOCIATE Josias Gee - 08/28/2019 9:23 AM CST Rec'd fax [facility]-Letter/Certificate of Medical Necessity. Placed fax in providers right fax folder for review. Josias Gee 08/28/2019, 9:23 AM ORATE STRATEGY ASSOCIATE documented in this encounter Plan of Treatment Upcoming Encounters Date Type Specialty Care Team Description 06/12/2022 Appointment Urology Raj [place] MD [address] [place], [place] [address] (Wo rk) 09/28/2022 Telemedicine Psychiatry Humera Bush MD [address] [place], [place] [address] (Wo rk) documented as of this encounter Visit Diagnoses Not on filedocumented in this encounter Care Teams Rotating Field Assembler Relationship Specialty Start Date End Date Rob Tillman MD PCP - General Physical Medicine and 08/01/19 [address] [facility] [place] [address] documented as of this encounter
--- OUTSIDE RECORDS SUMMARY | 2022-06-04 15:42 | XMS_ITS | Encounter Summary ---
:1995 Author Organization [facility] Address [address], [place] [address] Care Team Providers Name Role Phone Rob Tillman MD Primary Care Provider Encounter Details Date Type Department Care Team Description 08/28/2019 Correspondence [facility] Rob Tillman ATIF [facility] MD Sophie CERTIFICATION OF Physical Medicine [address] [facility] MEDICAL NECESSITY [address] 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
--- OUTSIDE RECORDS SUMMARY | 2022-06-04 15:42 | XMS_ITS | Encounter Summary ---
:1996 Author Organization [employer] Address [address] [address] Care Team Providers Name Role Phone Rob Tillman MD Primary Care Provider Encounter Details Date Type Department Care Team Description 08/17/2019 Telephone [facility] Humera [place] MD [address] 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 Start on Concerta 54 mg each day. A new prescription for Concerta was sent to their pharmacy. 3. Have mom call next week with an update on changes noted Sharlene Reno RN CHARGE BOOKKEEPER Humera Bush MD - 08/17/2019 9:32 AM CST Please call the family. Discontinue methylphenidate immediate release 40 mg in the morning and starton Concerta 54 mg each day. A new prescription for Concerta was sent to their pharmacy. Have mom call next week with an update on changes noted Humera [place] MD 08/17/2019 9:33 AM CHARGE BOOKKEEPER documented in this encounter Plan of Treatment Upcoming Encounters Date Type Specialty Care Team Description 06/12/2022 Appointment Urology Raj Castro MD [address] [place], [place] [address] (Wo rk) 09/28/2022 Telemedicine Psychiatry Humera [place] MD [address] [place], [place] [address] (Wo rk) documented as of this encounter Visit Diagnoses Not on filedocumented in this encounter Care Teams Technology Analyst Relationship Specialty Start Date End Date Rob Tillman MD PCP - General Physical Medicine and 08/01/19 295 [facility] [place] [address] documented as of this encounter
--- OUTSIDE RECORDS SUMMARY | 2022-06-04 15:42 | XMS_ITS | Encounter Summary ---
:1995 [facility] Address [address] [place] [address] Care Team Providers Name Role Phone Rob Tillman MD Primary Care Provider Reason for Visit Procedure/Equipment (Routine) - Incomplete Specialty Diagnoses / Procedures Referred By Contact Refer red To Contact Diagnoses Scoliosis of thoracic spine, unspecified scoliosis type Nataliia Henry PA-C Procedures CT Thoracic Spine WO IV Cont [address] [place] [address] Referral ID Status Reason Start Date Expiration Date Visits V isits Requested Authorized [id number] Incomplete 08/22/2019 11/20/2020 1 1 Encounter Details Date Type Department Care Team Description 08/28/2019 [facility] Scoliosis of thoracic spine, unspecified scoliosis type; Procedure [facility] E, PA-C 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 CT THORACIC SPINE Routine 08/28/2019 9:38 AM Scoliosis of thor acic Results for this WO IV CONT CLERK GENERAL OFFICE spine, unspecified procedure are in scoliosis type the results section. documented in this encounter Results CT Lumbar Spine WO IV Cont (08/28/2019 9:38 AM CLERK GENERAL OFFICE) Anatomical Region Laterality Modality Spine, L-Spine Computed Tomography Specimen (Source) Anatomical Collection Method Collection Time Re ceived Time Location / / Volume Laterality 08/28/2019 9:38 AM CLERK GENERAL OFFICE Narrative 08/28/2019 1:08 PM CLERK GENERAL OFFICE EXAM: CT THORACIC SPINE WO IV CONT, [...] Spine WO IV Cont (08/28/2019 9:38 AM CLERK GENERAL OFFICE) Anatomical Region Laterality Modality Spine, T-Spine, Skeletal Computed Tomogr aphy Specimen (Source) Anatomical Collection Method Collection Time Re ceived Time Location / / Volume Laterality 08/28/2019 9:38 AM CLERK GENERAL OFFICE Narrative 08/28/2019 1:08 PM CLERK GENERAL OFFICE EXAM: CT THORACIC SPINE WO IV CONT, [...] (HRC) documented in this encounter Care Teams Produce Wrapper Relationship Specialty Start Date End Date Rob Tillman MD PCP - General Physical Medicine and 08/01/19 [facility] [place] [address] documented as of this encounter
--- OUTSIDE RECORDS SUMMARY | 2022-06-04 15:42 | XMS_ITS | Encounter Summary ---
:1995 Author Organization [facility] Address [address] [place] [address] Care Team Providers Name Role Phone Rob Tillman MD Primary Care Provider Reason for Visit Procedure/Equipment (Routine) - Closed Specialty Diagnoses / Procedures Referred By Contact Refer red To Contact Diagnoses Spina bifida without hydrocephalus, unspecified spinal region (HRC) Gait abnormality Rob Tillman MD Procedures Wheelchair Cushion [address] [place] [address] Referral ID Status Reason Start Date Expiration Date Visits Requ ested Visits Authorized [id number] Closed 04/03/2019 07/02/2020 1 1 Encounter Details Date Type Department Care Team Description 10/13/2019 Office Visit Caitlyn Mcknight Impaired mobility [facility], PT (Primary Dx) Physical Therapy [address] [facility] 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 Patient demonstrates impairments in strength, range of motion, functional mobility, gait and balance. 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 [facility] INFORMATION [facility] Insurance Info: Today's Visit Number: 1 Progress Note Needed at Visit Number: 10 Medicare Insurance Info: Total Units Used (including today): Today's Visit Number: 1 Progress Note Needed at Visit Number: 10 Certification Period: 10/13/2019 - 01/10/20 Date of Onset: with worsening 08/15/2019 Vendor: [employer], although not present Treatment Diagnoses: ICD-10-CM 1. Impaired mobility Z74.09 Past Medical History, Diagnostic Tests, and Medications: Reviewed in [facility] [employer]. No past medical history on file. Patient [...] type (HRC) ??? Nonverbal learning disorder Acetylcysteine (T-OXVXLK-N-CYSTEINE OR), 1200mg daily, , Disp: , Rfl: [...] Laterality Date ??? STRABISMUS SURG; 2 HORIZ[facility]AL [facility] Bilateral 05/09/2008 Medial rectus advancement OU ??? STRABISMUS SURG; 2 HORIZONTAL [facility] Bilateral 10/05/2007 A-pattern ET w/BSOOA. 4.5mm RMRc [...] bifida and myelomeningocele s/p T8-L4 fusion at [facility], diastematomyelia resulting in a split [...] Cardio-Respiratory Status: intact Current Seating/Mobility: (Type - Records Management Assistant-Model) Chair: [employer] jasiel lila [employer], age: 4-5 years w/c Cushion: crystal basic, age: 2-3 years shortened seat length on left w/c Back: lumbar height, basic backrest , age: 4-5 years Funding source: Medicare Home Environment: Patient lives with family in a house. Entrance: stairs, with 4 steps with railing-family assists W/C Accessible Rooms: yes Community ADL: Transportation: car. Driving requirements: not a chain saw driver Employment/Educational requirements: currently in school Hobbies/Interests: [...] action with this matter. Sincerely, Caitlyn Dong, [facility] License # [id number] 10/13/2019 For Certifying Physician: Please sign below and fax this report, with your signature, to our clinic at [phone]. Your signature is required to continue treatment [...] 06/12/2022 Appointment Urology Raj Castro MD [address] [place] [phone] (Wo rk) 09/28/2022 Telemedicine Psychiatry Humera Bush MD [address] [place] [address], [place] [address] (Wo rk) documented as of this encounter Visit Diagnoses Diagnosis Impaired mobility - Primary Other ill-defined conditions documented in this encounter Care Teams Golf Caddy Relationship Specialty Start Date End Date Rob Tillman MD PCP - General Physical Medicine and 08/01/19 [address] [facility] [place] [address] documented as of this encounter
--- OUTSIDE RECORDS SUMMARY | 2022-06-04 15:42 | XMS_ITS | Encounter Summary ---
:1995 Author Organization [facility] Address [address] [place] [address] Care Team Providers Name Role Phone Rob Tillman MD Primary Care Provider Encounter Details Date Type Department Care Team Description 09/20/2019 Office Visit [facility] Humera Bush, Nonverbal learning disorder (Primary Dx); [address] [place] ADHD (attention deficit hyperactivity di sorder), inattentive type; [address]. 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 Acetylcysteine (V-CGTKYT-U-CYSTEINE OR) 1200mg daily ??? ARIPiprazole (ABILIFY) 2 [...] is doing them enrolled in classes at [facility] [employer] but isdoing them online Therapy: None Other Services: [facility] mental health social worker, KARYNA hernandez in place, [facility] worker Mental Status Exam: Fly is [...] 06/12/2022 Appointment Urology Raj Castro MD [address] [place], [place] [address] (Wo rk) 09/28/2022 Telemedicine Psychiatry Humera Bush MD [address] [place], [place] [address] (Wo rk) documented as of this encounter Visit Diagnoses Diagnosis Nonverbal learning disorder - Primary ADHD (attention deficit hyperactivity di sorder), inattentive type (HRC) Attention deficit disorder with hyperact ivity Spina bifida, unspecified hydrocephalus presence, unspecified spinal region (HRC) Anxiety (HRC) Anxiety state, unspecified documented in this encounter Care Teams Unit Manager Rn Relationship Specialty Start Date End Date Rob Tillman MD PCP - General Physical Medicine and 08/01/19 [address] [facility] [place] [place] [address] documented as of this encounter
--- OUTSIDE RECORDS SUMMARY | 2022-06-04 15:42 | XMS_ITS | Encounter Summary ---
:1995 Author Organization [facility] Address [address] [place] [address] Care Team Providers Name Role Phone Rob Tillman MD Primary Care Provider Encounter Details Date Type Department Care Team Description 08/30/2019 Office Visit [place] [facility] Humera Bush, ADHD (attention deficit hype ractivity disorder), inattentive type (Primary Dx); [address] [place] Nonverbal learning disorder; [address]. 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 Acetylcysteine (T-LMIFVC-X-CYSTEINE OR) 1200mg daily ??? ARIPiprazole (ABILIFY) 2 [...] looking for a new therapist Other Services: [facility] social and political studies professor, [facility] worker, [facility] worker in place Mental Status Exam: Fly is a very pleasant talkative young man [...] software and may contain unintended word substitutions. STERED PUBLIC SURVEYOR documented in this encounter Plan of Treatment Upcoming Encounters Date Type Specialty Care Team Description 06/12/2022 Appointment Urology Raj Castro MD [address] [place], [place] [address] (Wo rk) 09/28/2022 Telemedicine Psychiatry Humera Bush MD [address] [place], [place] [address] (Wo rk) documented as of this encounter Visit Diagnoses Diagnosis ADHD (attention deficit hyperactivity di sorder), inattentive type (HRC) - Primary Attention deficit disorder with hyperact ivity Nonverbal learning disorder Spina bifida, unspecified hydrocephalus presence, unspecified spinal region (HRC) Anxiety (HRC) Anxiety state, unspecified documented in this encounter Care Teams Display Carver Relationship Specialty Start Date End Date Rob Tillman MD PCP - General Physical Medicine and 08/01/19 [address] [place] [address] documented as of this encounter
--- OUTSIDE RECORDS SUMMARY | 2022-06-04 15:42 | XMS_ITS | Encounter Summary ---
:1995 Author Organization [facility] Address [address] [place] [address] Care Team Providers Name Role Phone Rob Tillman MD Primary Care Provider Reason for Visit Reason Comments Rachelle Prior Authorization For Medication Encounter Details Date Type Department Care Team Description 08/18/2019 Telephone [facility] [facility] Humera Bush Reeve; Prior [address] [place] Authorization For [address]. 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 Approved from 06/28/2019- 08/18/2020. Pharmacy notified and will notify pt. Tomeka Adams RN 08/21/2019, 9:19 AM S TESTER AND INSPECTOR Tomeka Adams RN - 08/18/2019 1:58 PM CST Received a letter from Lindy Fuller stating the need for a PA for Methylphenidate tab 54 mg ER. PA initiated. Tomeka Adams, RN 08/18/2019, 1:59 PM S TESTER AND INSPECTOR documented in this encounter Plan of Treatment Upcoming Encounters Date Type Specialty Care Team Description 06/12/2022 Appointment Urology Raj Castro MD [address] [place], [place] [address] (Wo rk) 09/28/2022 Telemedicine Psychiatry Humera Bush MD [address] [place], [place] [address] (Wo rk) documented as of this encounter Visit Diagnoses Not on filedocumented in this encounter Care Teams Sales Center Associate Relationship Specialty Start Date End Date Rob Tillman MD PCP - General Physical Medicine and 08/01/19 [address] [facility] [place] [place] [address] documented as of this encounter
--- OUTSIDE RECORDS SUMMARY | 2022-06-04 15:42 | XMS_ITS | Encounter Summary ---
:1995 Author Organization [facility] Address [address] [place] [address] Care Team Providers Name Role Phone Rob Tillman MD Primary Care Provider Reason for Referral Therapies (Routine) - Closed Specialty Diagnoses / Procedures Referred By Contact Refer red To Contact Diagnoses Spina bifida without hydrocephalus, unspecified spinal region (HRC) Gait abnormality Rob Tillman MD [address] [place] [address] Referral ID Status Reason Start Date Expiration Date Visits Requ ested Visits Authorized [id number] Closed 09/01/2019 10/31/2019 1 1 Scheduling Instructions Your provider has recommended an appoint ment with a [facility] Physical Therapist. Please stop at the clinic check out desk for assistance with scheduling or if you prefer to call for your appointment you may call [facility] at [phone]. We suggest you call your [facility] insurance company about your coverage and benefits for this appointment. T WRITER Reason for Visit Reason Comments QUESTIONS, GENERAL Encounter Details Date Type Department Care Team Description 08/28/2019 Telephone [facility] Neuroscience Jian Tillman, QUESTIONS, GENERAL Center Physical Medi cine [address] [facility]. 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 Rob Tillman MD 09/01/2019, 5:02 PM T WRITER Chantelle Blank RN - 08/31/2019 1:50 PM CST [facility] [employer], called patient's mom- measuring for his new wheel chair Patient is currently going to school- so he is using his wheel chair more than ever [facility] [employer] thinks patient may benefit from pressure mapping as well If MD agrees- please place orders for Chantelle Blank RN 08/31/2019, 1:53 PM T WRITER Chantelle Blank RN - 08/31/2019 10:22 AM CST LMTCB Chantelle Blank RN 08/31/2019, 10:23 AM T WRITER Kasi Tillman - 08/29/2019 4:11 PM CST Pt's mother Is returning call please call Kasi Tillman 08/29/2019, 4:11 PM T WRITER Chantelle Blank RN - 08/28/2019 4:49 PM CST LMTCB Chantelle Blank RN 08/28/2019, 4:49 PM T WRITER Josias Gee - 08/28/2019 12:46 PM CST Patients mother Dariana, requesting a call back regarding some questions she has about pressure mapping. Please advise, Thank you. T WRITER documented in this encounter Plan of Treatment Upcoming Encounters Date Type Specialty Care Team Description 06/12/2022 Appointment Urology Raj Castro MD [address] [place], [place] [address] (Wo rk) 09/28/2022 Telemedicine Psychiatry Humera Bush MD [address] [place], [place] [address] (Wo rk) Scheduled Referrals Name Type Priority Associated Diagnoses Order S chedule Physical Therapy Referral Routine Spina bifida without Ord ered: 09/01/2019 hydrocephalus, unspecified spinal region (H RC) Gait abnormality documented as of this encounter Visit Diagnoses Diagnosis Spina bifida without hydrocephalus, unsp ecified spinal region (HRC) - Primary Gait abnormality Abnormality of gait documented in this encounter Care Teams Food Packer Relationship Specialty Start Date End Date Rob Tillman MD PCP - General Physical Medicine and 08/01/19 [address] [facility] [place] [address] documented as of this encounter
--- OUTSIDE RECORDS SUMMARY | 2022-06-04 15:42 | XMS_ITS | Encounter Summary ---
:1995 Author Organization [facility] Address [address] [place] [address] Care Team Providers Name Role Phone Rob Tillman MD Primary Care Provider Reason for Visit Reason Comments RELEASE OF RECORDS [facility] and Office visit notes. Encounter Details Date Type Department Care Team Description 08/31/2019 [facility] RE[facility] OF [facility]ORDS [facility] MD Sophie ([place] [facility] [address] [facility] and [address] [facility]. 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 Rob Tillman MD 09/01/2019, 4:48 PM LINE SUPERINTENDENT DIVISION Keke Larson RMA - 08/31/2019 3:31 PM CST Printed and placed on 's desk. BERTO Henning 08/31/2019, 3:31 PM LINE SUPERINTENDENT DIVISION Josias Gee - 08/31/2019 2:38 PM CST Rec'd fax [facility] and Office visit notes. Placed fax in providers right fax folder for review. Josias Gee 08/31/2019, 2:38 PM LINE SUPERINTENDENT DIVISION documented in this encounter Plan of Treatment Upcoming Encounters Date Type Specialty Care Team Description 06/12/2022 Appointment Urology Raj Castro MD [address] [place], [place] [address] (Wo rk) 09/28/2022 Telemedicine Psychiatry Humera Bush MD [address] [place], [place] [address] (Wo rk) documented as of this encounter Visit Diagnoses Not on filedocumented in this encounter Care Teams Senior Windows Engineer Relationship Specialty Start Date End Date Rob Tillman MD PCP - General Physical Medicine and 08/01/19 [address] [facility] [place] [address] documented as of this encounter
--- OUTSIDE RECORDS SUMMARY | 2022-06-04 15:42 | XMS_ITS | Encounter Summary ---
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 documented in this encounter Results [facility] (08/25/2019 12:00 AM VEHICLE ASSEMBLY INSPECTOR) Specimen (Source) Anatomical Location Collection Method / Collectio n Time Received Time / Laterality Volume 08/25/2019 Narrative This result has an attachment that is no t available. Rob Tillman MD LAB_1 documented in this encounter Visit Diagnoses Not on filedocumented in this encounter Care Teams Railroad Brakeman Relationship Specialty Start Date End Date Rob Tillman MD PCP - General Physical Medicine and 08/01/[address] [place] [address] [place] [address] documented as of this encounter
--- OUTSIDE RECORDS SUMMARY | 2022-06-04 15:42 | XMS_ITS | Encounter Summary ---
:1995 Author Organization [employer] Address [address] [place] [address] Care Team Providers Name Role Phone Rob Tillman MD Primary Care Provider Encounter Details Date Type Department Care Team Description 08/24/2019 Telephone [facility] Nataliia Burrows, [facility] Neurosurgery/Ortho [address] [place] [address] [place] [address] [address] 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 Hansen fax folder for review. Billy Thomas 08/29/2019, 8:41 AM UM CLEANER MECHANIC Billy Thomas - 08/29/2019 8:18 AM CST Lab results have not been received. Electronic Resources Librarian reached Beverley with [facility] JOHANNA and requested for results to be faxed to [phone]. Per Beverley she will be sending this today. Will watch to make sure results are received. Billy Thomas 08/29/2019, 8:19 AM UM CLEANER MECHANIC Karuna Woods RN - 08/25/2019 2:25 PM CST CA: please follow up on lab results from [facility]. Karuna Woods RN UM CLEANER MECHANIC Karuna Woods RN - 08/25/2019 1:59 PM CST Patient and mother advised of provider recommendations from below message and states understanding. Mother also states that patient had blood work completed today at [facility] and JOHANNA was signed to send results to clinic. Karuna Woods RN UM CLEANER MECHANIC Sadie Londono PA-C - 08/24/2019 4:[address] Hansen spoke with Dr. Hernandez and they did not think a 3rd ventriculostomy would be appropriate, rather a programmable WELDING MACHINE OPERATOR GAS shunt. Please have pt f/u with Dr. Hansen within the next month to discuss options, as Dr. Hernandez may do the shunt but will discuss with family first. Sadie Londono PA-C 08/24/2019, 4:43 PM UM CLEANER MECHANIC Nataliia Henry PA-C - 08/24/2019 8:[address] Hansen to discuss patient's case with Dr. Hernandez as to whether or not he would be a good candidate for 3rd ventriculostomy, or if he should be referred to see Dr. Hernandez. Patient will need to be called with plan once obtained. UM CLEANER MECHANIC documented in this encounter Plan of Treatment Upcoming Encounters Date Type Specialty Care Team Description 06/12/2022 Appointment Urology Raj Castro MD [address] [place], [place] [address] (Wo rk) 09/28/2022 Telemedicine Psychiatry Humera Bush MD [address] [place], [place] [address] (Wo rk) documented as of this encounter Visit Diagnoses Not on filedocumented in this encounter Care Teams Appliance Repair Technician Relationship Specialty Start Date End Date Rob Tillman MD PCP - General Physical Medicine and 08/01/19 [address] [facility] Rehabilitation [place], [place] [id number] documented as of this encounter
--- OUTSIDE RECORDS SUMMARY | 2022-06-04 15:42 | XMS_ITS | Encounter Summary ---
:1996 Author Organization [facility] Address [address] [place] [address] Care Team Providers Name Role Phone Rob Tillman MD Primary Care Provider Reason for Visit Procedure/Equipment (Routine) - Incomplete Specialty Diagnoses / Procedures Referred By Contact Refer red To Contact Diagnoses Scoliosis of thoracic spine, unspecified scoliosis type Nataliia Henry PA-C Procedures XR Scoliosis 2 Views [address] [place] [address] Referral ID Status Reason Start Date Expiration Date Visits V isits Requested Authorized [id number] Incomplete 08/22/2019 11/20/2020 1 1 Encounter Details Date Type Department Care Team Description 08/22/2019 [facility] IAN Haas thoracic spine, Radiology [address] [facility] unspecified [address] [facility] 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 documented in this encounter Results XR Scoliosis 2 Views (08/22/2019 4:27 PM ENCODING CLERK) Anatomical Region Laterality Modality Spine, C-Spine, T-Spine, L-Spine Compute d Radiography Specimen (Source) Anatomical Collection Method Collection Time Re ceived Time Location / / Volume Laterality 08/22/2019 4:27 PM ENCODING CLERK Narrative 08/23/2019 8:54 AM ENCODING CLERK EXAM: XR SCOLIOSIS 2 VIEWS LOCATION: [facility] DATE/TIME: 08/22/2019 4:27 PM INDICATION: Redo scoliosis [...] VIEWS LOCATION: [facility] DATE/TIME: 08/22/2019 4:27 PM INDICATION: Redo scoliosis [...] type documented in this encounter Care Teams Jar Capper Relationship Specialty Start Date End Date Rob Tillman MD PCP - General Physical Medicine and 08/01/[address] [place] [address] [place] [address] documented as of this encounter
--- OUTSIDE RECORDS SUMMARY | 2022-06-04 15:42 | XMS_ITS | Encounter Summary ---
:1995 Author Organization [facility] Address [address] [place] [address] Care Team Providers Name Role Phone Rob Tillman MD Primary Care Provider Reason for Visit Procedure/Equipment (Routine) - Incomplete Specialty Diagnoses / Procedures Referred By Contact Refer red To Contact Diagnoses Spina bifida, unspecified hydrocephalus presence, unspecified spinal region (HRC) Scoliosis of thoracic spine, unspecified scoliosis type Matthew Hansen MD Procedures XR Scoliosis [address] [place] [address] Referral ID Status Reason Start Date Expiration Date Visits V isits Requested Authorized [id number] Incomplete 08/22/2019 11/20/2020 1 1 Encounter Details Date Type Department Care Team Description 08/22/2019 [facility] Spina bifida, unspecified hydrocephalus presence, unspecified spinal region (HRC); Procedure Neuroscience Center Alen Castro Scoliosis of thoracic spine, unspecified scoliosis type Radiology [address] 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 spinal region (H RC) Scoliosis of thoracic spine, unspecified scoliosis type documented in this encounter Results XR Scoliosis 2 Views (08/22/2019 2:31 PM MUSIC PASTOR) Anatomical Region Laterality Modality Spine, C-Spine, T-Spine, L-Spine Compute d Radiography Specimen (Source) Anatomical Collection Method Collection Time Re ceived Time Location / / Volume Laterality 08/22/2019 2:31 PM MUSIC PASTOR Narrative 08/23/2019 8:49 AM MUSIC PASTOR EXAM: XR SCOLIOSIS 2 VIEWS LOCATION: [facility] DATE/TIME: 08/22/2019 2:31 PM INDICATION: [...] original. EXAM: XR SCOLIOSIS 2 VIEWS LOCATION: [facility] DATE/TIME: 08/22/2019 2:31 PM INDICATION: [...] type documented in this encounter Care Teams Tele Marketing Executive Relationship Specialty Start Date End Date Rob Tillman MD PCP - General Physical Medicine and 08/01/[address] [place] [address] [place] [address] documented as of this encounter
--- OUTSIDE RECORDS SUMMARY | 2022-06-04 15:42 | XMS_ITS | Encounter Summary ---
:1996 Author Organization [employer] Address [address] [place] [address] Care Team Providers Name Role Phone Rob Tillman MD Primary Care Provider Encounter Details Date Type Department Care Team Description 10/20/2019 Telemedicine [facility] Humera Bush, ADHD (attention deficit hype ractivity disorder), inattentive type (Primary Dx); [address] [place] Nonverbal learning disorder; [address]. 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 Acetylcysteine (E-[id number]-W-CYSTEINE OR) 1200mg daily ??? ARIPiprazole (ABILIFY) 5 [...] Currently in college Therapy: Supportive Other Services: [facility] social media senior associatedavid in place, [facility] worker Mental Status Exam: Fly is pleasant [...] 06/12/2022 Appointment Urology Raj Castro MD [address] [place], [place] [address] (Wo rk) 09/28/2022 Telemedicine Psychiatry Humera Bush MD [address] [place], [place] [address] (Wo rk) documented as of this encounter Visit Diagnoses Diagnosis ADHD (attention deficit hyperactivity di sorder), inattentive type (HRC) - Primary Attention deficit disorder with hyperact ivity Nonverbal learning disorder Spina bifida, unspecified hydrocephalus presence, unspecified spinal region (HRC) Anxiety (HRC) Anxiety state, unspecified documented in this encounter Care Teams Sec Accountant Relationship Specialty Start Date End Date Rob Tillman MD PCP - General Physical Medicine and 08/01/19 [address] [facility] [place] [place] [address] documented as of this encounter
--- OUTSIDE RECORDS SUMMARY | 2022-06-04 15:42 | XMS_ITS | Encounter Summary ---
:1996 Author Organization [employer] Address [address] [place] [address] Care Team Providers Name Role Phone Rob Tillman MD Primary Care Provider Reason for Referral Procedure/Equipment (Routine) - Incomplete Specialty Diagnoses / Procedures Referred By Contact Refer red To Contact Diagnoses Scoliosis of thoracic spine, unspecified scoliosis type Nataliia Henry PA-C Procedures CT Thoracic Spine WO IV Cont [address] [place] [address] Referral ID Status Reason Start Date Expiration Date Visits V isits Requested Authorized [id number] Incomplete 08/22/2019 11/20/2020 1 1 NESS ANALYTICS ANALYST Consult/Transfer Care (Routine) - Closed Specialty Diagnoses / Procedures Referred By Contact Refer red To Contact Diagnoses Spina bifida, unspecified hydrocephalus presence, unspecified spinal region (HRC) Hydrocephalus, unspecified type (HRC) Memory loss Matthew Hansen MD [address] [place] [address] Referral ID Status Reason Start Date Expiration Date Visits Requ ested Visits Authorized [id number] Closed 08/22/2019 11/20/2020 1 1 Scheduling Instructions Your provider has recommended an appoint ment with Neuropsychological Testing. You may call [phone] to schedule your appoi ntment. If you prefer, a ext js developer will contact you within the next 3 business d ays to assist you in setting up this appointment. NESS ANALYTICS ANALYST Procedure/Equipment (Routine) - Incomplete Specialty Diagnoses / Procedures Referred By Contact Refer red To Contact Diagnoses Scoliosis of thoracic spine, unspecified scoliosis type Nataliia Henry PA-C Procedures XR Scoliosis 2 Views [address] [place] [address] Referral ID Status Reason Start Date Expiration Date Visits V isits Requested Authorized [id number] Incomplete 08/22/2019 11/20/2020 1 1 NESS ANALYTICS ANALYST Procedure/Equipment (Routine) - Incomplete Specialty Diagnoses / Procedures Referred By Contact Refer red To Contact Diagnoses Spina bifida, unspecified hydrocephalus presence, unspecified spinal region (HRC) Scoliosis of thoracic spine, unspecified scoliosis type Matthew Hansen MD Procedures XR Scoliosis 2 Views [address] [place] [address] Referral ID Status Reason Start Date Expiration Date Visits V isits Requested Authorized [id number] Incomplete 08/22/2019 11/20/2020 1 1 NESS ANALYTICS ANALYST Reason for Visit Reason Comments Revisit Consult/Transfer Care (Routine) - Closed Specialty Diagnoses / Procedures Referred By Contact Refer red To Contact Diagnoses Spina bifida without hydrocephalus, unspecified spinal region (HRC) Rob Tillman MD [address] [place] [address] Referral ID Status Reason Start Date Expiration Date Visits Requ ested Visits Authorized [id number] Closed 07/28/2019 10/26/2020 1 1 Encounter Details Date Type Department Care Team Description 08/22/2019 Office Visit Tanisha Hansen, Scoliosis of t horacic spine, unspecified scoliosis type (Primary Dx); Neuroscience Center Alen Castro Spina bifida, unspecified hydrocephalus presence, unspecified spinal region (HRC); [facility]tho [address] [facility] Hydrocephalus, unspecified type (HRC); Spine [place], [place] Memory loss [address] [address] [place] [address] [phone] Social History Tobacco Use Types Packs/Day Years Used Date Smoking Tobacco: Never Smokeless Tobacco: Never Alcohol Use Standard Drinks/Week Comments Yes 0 (1 standard drink = 0.6 oz pure alcoho l) occasional Sex Assigned at Date Recorded Male 07/12/2021 3:57 PM BUSINESS ANALYTICS ANALYST documented as of this encounter Last Filed Vital Signs Vital Sign Reading Time Taken Comments Blood Pressure 117/81 08/22/2019 2:47 PM BUSINESS ANALYTICS ANALYST Pulse 100 08/22/2019 2:47 PM BUSINESS ANALYTICS ANALYST Temperature 36.6 ??C (97.9 ??F) 08/22/2019 2:47 PM BUSINESS ANALYTICS ANALYST Respiratory Rate - - Oxygen Saturation - [...] understanding. Please call the Neurosurgery/Spine Clinic at [phone] with any further questions or concerns. NESS ANALYTICS ANALYST documented in this encounter Progress Notes Nataliia Henry PA-C - 08/22/2019 2:00 PM CST NESS ANALYTICS ANALYST Nataliia Henry PA-C - 08/22/2019 2:00 PM CST Neurosurgery Clinic Follow Up Note Chief Complaint: f/u scoliosis Fly is a pleasant 24 y.o. old male who presents today for follow up visit. 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 We will refer him for neuropsych [...] which over 50% was spent on counseling. NESS ANALYTICS ANALYST Billy Thomas - 08/22/2019 2:00 PM CST [facility] Billy Thomas 08/24/2019, 8:34 AM NESS ANALYTICS ANALYST Billy Thomas - 08/22/2019 2:00 PM CST Reached patient and his mother Dariana to schedule his CT. Patient is now scheduled for 08/28/2019 at 9:00am at [facility] NESS ANALYTICS ANALYST documented in this encounter Nursing Notes Beulah Morton, RN - 08/22/2019 2:00 PM CST Per plan of care note scoliosis x-ray order placed.Beulah Morton, MARC 08/22/2019, 12:47 PM NESS ANALYTICS ANALYST documented in this encounter Plan of Treatment Upcoming Encounters Date Type Specialty Care Team Description 06/12/2022 Appointment Urology Raj Castro MD [address] [place], [place] [address] (Wo rk) 09/28/2022 Telemedicine Psychiatry Humera Bush MD [address] [place], [place] [address] (Wo rk) Scheduled Referrals Name Type Priority Associated Diagnoses Order S chedule NEUROPSYCHOLOGICAL Referral Routine Spina bifida, Ordered: TESTING/CONSULT-ADULT unspecified 2019 [[id number]] hydrocephalus presence, unspecified spinal region (H RC) Hydrocephalus, unspecified type (HRC) Memory loss documented as of this encounter Results CT Thoracic Spine WO IV Cont (08/28/2019 9:38 AM BUSINESS ANALYTICS ANALYST) Anatomical Region Laterality Modality Spine, T-Spine, Skeletal Computed Tomogr aphy Specimen (Source) Anatomical Collection Method Collection Time Re ceived Time Location / / Volume Laterality 08/28/2019 9:38 AM BUSINESS ANALYTICS ANALYST Narrative 08/28/2019 1:08 PM BUSINESS ANALYTICS ANALYST EXAM: CT THORACIC SPINE WO IV CONT, [...] XR Scoliosis 2 Views (08/22/2019 4:27 PM BUSINESS ANALYTICS ANALYST) Anatomical Region Laterality Modality Spine, C-Spine, T-Spine, L-Spine Compute d Radiography Specimen (Source) Anatomical Collection Method Collection Time Re ceived Time Location / / Volume Laterality 08/22/2019 4:27 PM BUSINESS ANALYTICS ANALYST Narrative 08/23/2019 8:54 AM BUSINESS ANALYTICS ANALYST EXAM: XR SCOLIOSIS 2 VIEWS LOCATION: [facility] DATE/TIME: 08/22/2019 4:27 PM INDICATION: Redo [...] original. EXAM: XR SCOLIOSIS 2 VIEWS LOCATION: [facility] DATE/TIME: 08/22/2019 4:27 PM INDICATION: Redo [...] XR Scoliosis 2 Views (08/22/2019 2:31 PM BUSINESS ANALYTICS ANALYST) Anatomical Region Laterality Modality Spine, C-Spine, T-Spine, L-Spine Compute d Radiography Specimen (Source) Anatomical Collection Method Collection Time Re ceived Time Location / / Volume Laterality 08/22/2019 2:31 PM BUSINESS ANALYTICS ANALYST Narrative 08/23/2019 8:49 AM BUSINESS ANALYTICS ANALYST EXAM: XR SCOLIOSIS 2 VIEWS LOCATION: [facility] DATE/TIME: 08/22/2019 2:31 PM INDICATION: Hx [...] original. EXAM: XR SCOLIOSIS 2 VIEWS LOCATION: [facility] DATE/TIME: 08/22/2019 2:31 PM INDICATION: Hx [...] T4. Sagittal Balance: 2 cm positive. Matthew aHnsen MD RAD GD documented in this encounter [...] (HRC) documented in this encounter Care Teams Chest Painting And Sealing Supervisor Relationship Specialty Start Date End Date Rob Tillman MD PCP - General Physical Medicine and 08/01/19 [address] [facility] [place] [address] documented as of this encounter
--- OUTSIDE RECORDS SUMMARY | 2022-06-04 15:42 | XMS_ITS | Encounter Summary ---
:1996 Author Organization [facility] Address [address] [place] [address] Care Team Providers Name Role Phone Rob Tillman MD Primary Care Provider Reason for Visit Procedure/Equipment (Routine) - Incomplete Specialty Diagnoses / Procedures Referred By Contact Refer red To Contact Diagnoses Spina bifida without hydrocephalus, unspecified spinal region (HRC) Rob Tillman MD Procedures CT Head WO IV Cont [address] [place] [address] Referral ID Status Reason Start Date Expiration Date Visits V isits Requested Authorized [id number] Incomplete 07/28/2019 10/26/2020 1 1 Encounter Details Date Type Department Care Team Description [facility]2019 [facility] CT Rob Barrios MD without 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 documented in this encounter Results CT Head WO IV Cont (08/18/2019 12:06 PM WATER REUSE PROGRAM MANAGER) Anatomical Region Laterality Modality Head Computed Tomography Specimen (Source) Anatomical Collection Method Collection Time Re ceived Time Location / / Volume Laterality 08/18/2019 12:06 PM WATER REUSE PROGRAM MANAGER Narrative 08/18/2019 3:40 PM WATER REUSE PROGRAM MANAGER EXAM: CT HEAD WO IV CONT [...] (HRC) documented in this encounter Care Teams Press Breaker Relationship Specialty Start Date End Date Rob Tillman MD PCP - General Physical Medicine and 08/01/[address] [place] [address] [place] [address] documented as of this encounter
--- OUTSIDE RECORDS SUMMARY | 2022-06-04 15:43 | XMS_ITS | Encounter Summary ---
:1996 Author Organization [employer] Address [address] [place] [address] Care Team Providers Name Role Phone No Primary/Referring, Phy Primary Care Provider Unavailable Reason for Visit Reason Comments Concerns Encounter Details Date Type Department Care Team Description 04/12/2019 Telephone Specialty Center [address] Raj Castro MD Concerns Urology Clinic [address] [facility] 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
--- OUTSIDE RECORDS SUMMARY | 2022-06-04 15:43 | XMS_ITS | Encounter Summary ---
:1995 Author Organization [facility] Address [address] [place] [address] Care Team Providers Name Role Phone Rob Tillman MD Primary Care Provider Reason for Visit Consult/Transfer Care (Routine) - Closed Specialty Diagnoses / Procedures Referred By Contact Refer red To Contact Diagnoses Autism (HRC) Attention deficit disorder, unspecified hyperactivity presence Depression, unspecified depression type Anxiety disorder, unspecified type (HRC) Hanane Padilla MD [address] [place], [place] [address] Referral ID Status Reason Start Date Expiration Date Visits Requ ested Visits Authorized [id number] Closed 06/29/2019 09/27/2020 1 1 Encounter Details Date Type Department Care Team Description 08/16/2019 Office Visit Humera Glez ADHD (atten tion deficit hyperactivity disorder), inattentive type (Primary Dx); Psychiatry MD Isauro Spina bifida, unspecified hydrocephalus presence, unspecified spinal region (HRC); [address] Arnold-Chiari malformation (HR); [address] . 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 Fly has a history dating back to . 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 He had been home schooled until 8th grade and then attended his community-based high school. When they moved to [place] Fly was a senior in high school and he enrolled in [employer] and ultimately graduated from that program the spring. During high school he generally did quite well. He had limited special education support and had a [address]. He struggled socially in high schoolhowever and felt like he did not really fit in easily with other students. After graduating from high school he enrolled as a freshman in the [employer]. On his own at the [employer] hehad significant difficulties. He failed his 1st [...] anxiety, depression. Once he moved to the [facility] he started receiving psychiatric services. At 1 point it was apparently recommended that he be evaluated for ???autism.?? Mom says they went to the [place] [employer] and at the age of [...] week directing students to appropriate school resources. trail maintenance worker history is generally unremarkable from a mental [...] in his own apartment but in the [facility] area near his family. He would like [...] 4. Community services in place with a [facility] waiver, he has a county adoption social worker through [facility], has an [facility] worker Chemical Use History: Occasional social drinking, [...] Aron and mother Dariana. Aron is an heating and ventilation engineer for [employer] and is 51 years old. Mom is 50 and works as a health sustainability coach part-time and is otherwise at home. There is a sister Tennille who is a technical sales engineer and attending [employer]. She is currently living at home on a temporary basis for an epidemiology internship. There is a brother Alex who is 19 and studying computer science at the [employer]. Fly is currently trying to complete his 2 year degree in computer science at [employer] in [facility]. He graduated from high school in 2015. He lives with his parents in their home in [facility]. He currently does not drive. He has his driver helper's permit but hasnot pursued getting a driver helper's license. He is very nervous about driving. [...] with his dog. He also enjoys p [employer] board games with his family. Developmental History: [...] [facility]. Mental Status Exam: Is [...] as a next step. 5. Referral to [facility] for further driving evaluation if the family is interested 6. Referral to [facility] for transition services for young adults with physical disabilities No Medications ordered this encounter Follow-up visit: 1-2 weeks Visit Summary: psychiatric evaluation.. Start Time: 8:30 a.m. Stop Time: 9:30 a.m. Humera Bush MD CH DIRECTOR documented in this encounter Plan of Treatment Upcoming Encounters Date Type Specialty Care Team Description 06/12/2022 Appointment Urology Raj Castro MD [address] [place], [place] [address] (Wo rk) 09/28/2022 Telemedicine Psychiatry Humera Bush MD [address] [place], [place] [address] (Wo rk) Scheduled Referrals Name Type Priority Associated Diagnoses Order [facility] Referral Routine Autism Ordered: 06/29/2019 [...] disorder documented in this encounter Care Teams Machine Hamper Maker Relationship Specialty Start Date End Date Rob Tillman MD PCP - General Physical Medicine and 08/01/19 [address] [facility] [place] [address] documented as of this encounter
--- OUTSIDE RECORDS SUMMARY | 2022-06-04 15:43 | XMS_ITS | Encounter Summary ---
:1995 Author Organization [facility] Address [address] [place] [address] Care Team Providers Name Role Phone No Primary/Referring, Phy Primary Care Provider Unavailable Reason for Referral (Routine) - Closed Specialty Diagnoses / Procedures Referred By Contact Refer red To Contact Diagnoses Leg length discrepancy Rob Tillman MD Procedures Other-Dme [address] [place] [address] Referral ID Status Reason Start Date Expiration Date Visits Requ ested Visits Authorized [id number] Closed 07/28/2019 10/26/2020 1 1 F NUCLEAR MEDICINE TECHNOLOGIST Procedure/Equipment (Routine) - Closed Specialty Diagnoses / Procedures Referred By Contact Refer red To Contact Diagnoses Valgus deformity of foot, left Leg length discrepancy Rob Tillman MD [address] [place] [address] Referral ID Status Reason Start Date Expiration Date Visits Requ ested Visits Authorized [id number] Closed 07/27/2019 10/25/2020 1 1 F NUCLEAR MEDICINE TECHNOLOGIST Reason for Visit Reason Comments Orders Needed shoe lift Encounter Details Date Type Department Care Team Description 07/26/2019 Telephone [facility] Rob Tillman Orders Nee ded (shoe [facility] MD Sophie lift) Physical Medicine [address] [facility] [address] [facility] [place] [address] Social History Tobacco Use Types Packs/Day Years Used Date Smoking Tobacco: Never Smokeless Tobacco: Never Alcohol Use Standard Drinks/Week Comments Yes 0 (1 standard drink = 0.6 oz pure alcoho l) occasional Sex Assigned at Date Recorded Male 07/12/2021 3:57 PM CHIEF NUCLEAR MEDICINE TECHNOLOGIST documented as of this encounter Nursing Notes Chantelle Blank, RN - 07/31/2019 9:52 AM CST Faxed to [employer] Chantelle Blank RN 07/31/2019, 9:52 AM F NUCLEAR MEDICINE TECHNOLOGIST Rob Tillman MD - 07/28/2019 1:42 PM CST Order placed for new shoe lift. Please fax order to [employer]. Rob Tillman MD 07/28/2019, 1:42 PM F NUCLEAR MEDICINE TECHNOLOGIST Kasandra Markham - 07/26/2019 10:38 AM CST Pt is in need of a new order for his shoe lift. Provided the folling info: 1 3/4 inch Rocker toe and heel Left foot only Would like this faxed to [employer]. F NUCLEAR MEDICINE TECHNOLOGIST documented in this encounter Plan of Treatment Upcoming Encounters Date Type Specialty Care Team Description 06/12/2022 Appointment Urology Raj Castro MD [address] [place], [place] [address] (Wo rk) 09/28/2022 Telemedicine Psychiatry Humera Bush MD [address] [place], [place] [address] (Wo rk) Scheduled Referrals Name Type Priority Associated Diagnoses Order S chedule Other - Order Referral Routine Valgus deformity of foot, left Ordered: 07/27/2019 Leg length discrepancy documented as of this encounter Visit Diagnoses Diagnosis Valgus deformity of foot, left - Primary Leg length discrepancy Unequal leg length (acquired) documented in this encounter Care Teams Coach Cleaner Relationship Specialty Start Date End Date No Primary/Referring, Phy PCP - General 09/23/18 documented as of this encounter
--- OUTSIDE RECORDS SUMMARY | 2022-06-04 15:43 | XMS_ITS | Encounter Summary ---
:1995 Author Organization [facility] Address [address] [place] [address] Care Team Providers Name Role Phone Rob Tillman MD Primary Care Provider Reason for Referral Procedure/Equipment (Routine) - Incomplete Specialty Diagnoses / Procedures Referred By Contact Refer red To Contact Diagnoses Spina bifida without hydrocephalus, unspecified spinal region (HRC) Rob Tillman MD Procedures CT Head WO IV Cont [address] [place] [address] Referral ID Status Reason Start Date Expiration Date Visits V isits Requested Authorized [id number] Incomplete 07/28/2019 10/26/2020 1 1 R SLICER Consult/Transfer Care (Routine) - Closed Specialty Diagnoses / Procedures Referred By Contact Refer red To Contact Diagnoses Spina bifida without hydrocephalus, unspecified spinal region (HRC) Rob Tillman MD [address] [place] [address] Referral ID Status Reason Start Date Expiration Date Visits Requ ested Visits Authorized [id number] Closed 07/28/2019 10/26/2020 1 1 Scheduling Instructions Your provider has recommended an appoint ment with [facility]. You may call [phone], option 2 for ques tions or to schedule your appointment. If you prefer, a medical office scheduler will contact you [facility] the next 3 business days to assist [...] Help you care for your back. The network support specialist will help create a treatment plan with you that you and your primary care doctor can work on together to relieve your pain. R SLICER Encounter Details Date Type Department Care Team Description 07/26/2019 Telephone [facility] Rob Correa MD Center Physical Medi cine [address] [place] [address] [place] [address] [phone] Social History Tobacco Use Types Packs/Day Years Used Date Smoking Tobacco: Never Smokeless Tobacco: Never Alcohol Use Standard Drinks/Week Comments Yes 0 (1 standard drink = 0.6 oz pure alcoho l) occasional Sex Assigned at Date Recorded Male 07/12/2021 3:57 PM WAFER SLICER documented as of this encounter Nursing Notes Ankita Rubio - 08/03/2019 8:[address] has been scheduled for 08/18/19 at 11:00AM at [facility]. Ankita Rubio 08/03/2019, 8:58 AM R SLICER Ankita Rubio - 08/01/2019 10:33 AM CST Construction Scheduler spoke to pt to help schedule appt with Dr. Hansen at next available on 08/22/19 at 2:00PM. Ptwas advised that he needs to complete CT head prior. Pt requesting for contract writer to contact his mother to schedule the CT. LM on Mom's phone to call Radiology scheduling line for CT. Phone number left on message. Ankita Rubio 08/01/2019, 10:55 AM R SLICER Beulah Morton, MARC - 07/28/2019 4:[address] Tillman ordered a head CT for further evaluation of the ventricles, ok to schedule once head CT completed, will schedule with Dr. Hansen's team.Beulah Morton, MARC 07/28/2019, 4:42 PM R SLICER Kasandra Markham - 07/28/2019 3:09 PM CST Mom called back to follow up on request. Informed her Dr. Tillman placed order for neurosurgery consult and that I would forward message to neurosurgery team to review/advise on scheduling. Mom states pt is experiencing increased fatigue, anxiety, depression, and frequent episodes of memory loss/ recall. Please advise on scheduling. Thank yoU! R SLICER Rob Tillman MD - 07/28/2019 1:43 PM CST If patient is having new symptoms, then patient should be seen by Neurosurgery 1st in order to ensure a timely triage of his symptoms. Neurosurgery referral placed. CT head ordered. Rob Tillman MD 07/28/2019, 1:43 PM R SLICER Diana Ruby - 07/26/2019 11:22 AM CST Patient and his mother called stating his psychiatrist Dr. Cavanaugh suggested due to his symptoms he should be seen again In neurosurgery to evaluate his STUDY COORDINATOR shunt. But they need another referral. Also wondering if Primo would like to see him again first or if we can just put in the order. Please call patients Mother at [phone]. Diana Ruby 07/26/2019, 11:27 AM R SLICER documented in this encounter Plan of Treatment Upcoming Encounters Date Type Specialty Care Team Description 06/12/2022 Appointment Urology Raj Castro MD [address] [place], [place] [address] (Wo rk) 09/28/2022 Telemedicine Psychiatry Humera Bush MD [address] [place], [place] [address] (Wo rk) Scheduled Referrals Name Type Priority Associated Diagnoses Order S chedule Spine-Surgical Referral Routine Spina bifida without Order ed: 07/28/2019 Consult-Adults hydrocephalus, unspecified spinal region (HRC) documented as of this encounter Results CT Head WO IV Cont (08/18/2019 12:06 PM WAFER SLICER) Anatomical Region Laterality Modality Head Computed Tomography Specimen (Source) Anatomical Collection Method Collection Time Re ceived Time Location / / Volume Laterality 08/18/2019 12:06 PM WAFER SLICER Narrative 08/18/2019 3:40 PM WAFER SLICER EXAM: CT HEAD WO IV CONT LOCATION: [...] (HRC) documented in this encounter Care Teams Hand Rounder Relationship Specialty Start Date End Date Rob Tillman MD PCP - General Physical Medicine and 08/01/[address] [place] [id number] documented as of this encounter
--- OUTSIDE RECORDS SUMMARY | 2022-06-04 15:43 | XMS_ITS | Encounter Summary ---
:1995 Author Organization [facility] Address [address] [place] [address] Care Team Providers Name Role Phone Rob Tillman MD Primary Care Provider Reason for Visit Reason Comments Forms [facility] Encounter Details Date Type Department Care Team Description 08/15/2019 [facility] Forms ([facility] Neuroscience Orlando MD Sophie Physical Medicine [address] 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 Rob Tillman MD 08/15/2019, 5:23 PM REHENSIVE OPHTHALMOLOGIST Chantelle Blank, RN - 08/15/2019 12:03 PM CST On MD desk Chantelle Blank RN 08/15/2019, 12:03 PM REHENSIVE OPHTHALMOLOGIST Golden Veloz - 08/15/2019 11:40 AM CST Received Order form from [facility] requesting provider to sign for a cushion replacement. Micheal dawson's right fax folder for review, signature and date. Place in [place] to do basket once completed. Golden Veloz 08/15/2019, 11:41 AM REHENSIVE OPHTHALMOLOGIST documented in this encounter Plan of Treatment Upcoming Encounters Date Type Specialty Care Team Description 06/12/2022 Appointment Urology Raj Castro MD [address] [place], [place] [address] (Wo rk) 09/28/2022 Telemedicine Psychiatry Humera Bush MD [address] [place], [place] [address] (Wo rk) documented as of this encounter Visit Diagnoses Not on filedocumented in this encounter Care Teams Channel Process Supervisor Relationship Specialty Start Date End Date Rob Tillman MD PCP - General Physical Medicine and 08/01/19 [address] [facility] [place] [address] documented as of this encounter
--- OUTSIDE RECORDS SUMMARY | 2022-06-04 15:43 | XMS_ITS | Encounter Summary ---
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 documented in this encounter Results SCANNED ORDER (08/15/2019 12:00 AM AUTO ELECTRICIAN) Specimen (Source) Anatomical Location Collection Method / Collectio n Time Received Time / Laterality Volume 08/15/2019 Narrative This result has an attachment that is no t available. Provider External DUMMY/OTHER/AR documented in this encounter Visit Diagnoses Not on filedocumented in this encounter Care Teams Manager Retail Sales Relationship Specialty Start Date End Date Rob Tillman MD PCP - General Physical Medicine and 08/01/[address] [place] [address] [place] [address] documented as of this encounter
--- OUTSIDE RECORDS SUMMARY | 2022-06-04 15:43 | XMS_ITS | Encounter Summary ---
:1995 Author Organization [facility] Address [address] [place] [address] Care Team Providers Name Role Phone No Primary/Referring, Phy Primary Care Provider Unavailable Encounter Details Date Type Department Care Team Description 04/20/2019 Lab Visit [facility] Hodgkin lymphoma, [address] 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 documented as of this encounter Plan of Treatment Upcoming Encounters Date Type Specialty Care Team Description 06/12/2022 Appointment Urology Raj Castro MD [address] [place], [place] [address] (Wo rk) 09/28/2022 Telemedicine Psychiatry Humera Bush MD [address] [place], [place] [address] (Wo rk) documented as [...] Signature WBC 4.2 3.5 - 10.5 04/20/2019 [facility] x10(9)/L 9:09 AM CDT RBC 5.55 4.32 - 04/20/2019 [facility] 5.72 9:09 AM CDT x10(12)/L Hemoglobin 17.5 13.5 - 04/20/2019 [facility] 17.5 g/dL 9:09 AM CDT HCT 50.3 (H) 38.8 - 04/20/2019 [facility] 50.0 % 9:09 AM CDT MCV 90.6 80.0 - 04/20/2019 [facility] 100.0 fL 9:09 AM CDT MCH 31.5 27.6 - 04/20/2019 [facility] 33.3 pg 9:09 AM CDT MCHC 34.8 31.5 - 04/20/2019 [facility] 35.2 g/dL 9:09 AM CDT RDW 12.3 11.9 - 04/20/2019 [facility] 15.5 % 9:09 AM CDT Platelets 257 150 - 450 04/20/2019 [facility] x10(9)/L 9:09 AM CDT Neutrophil 2.3 1.7 - 7.0 04/20/2019 [facility] Absolute 10(9)/L 9:09 AM CDT Lymphocyte 1.1 1.0 - 4.8 04/20/2019 [facility] Absolute 10(9)/L 9:09 AM CDT Monocytes 0.5 0.2 - 0.9 04/20/2019 [facility] Absolute 10(9)/L 9:09 AM CDT Eosinophil 0.2 0.0 - 0.5 04/20/2019 [facility] Absolute 10(9)/L 9:09 AM CDT Basophil 0.1 0.0 - 0.3 04/20/2019 [facility] Absolute 10(9)/L 9:09 AM CDT Immature Gran % 0.0 0.0 - 0.5 04/20/2019 [facility] % 9:09 AM CDT Specimen Anatomical Collection Method / Collection Time Recei rufus Time (Source) Location / Volume Laterality Blood Venipuncture / 04/20/2019 9:04 04/20/2019 9:04 Unknown AM CDT AM CDT Wyatt Oneil MD LAB_1 Performing Organization Address City/State/ZIP Code Phon e Number [facility] [address] [place] [address] [facility] (ABNORMAL) Oncology Complete Metabolic Panel ([facility] ONLY) (04/20/2019 9:04 AM CDT) P athologist Signature Sodium, WB 139 136 - 145 04/20/2019 [facility] mmol/L 10:10 AM CDT Potassium, Whole 3.9 3.5 - 5.1 04/20/2019 [facility] B Blood mmol/L 10:10 AM CDT CO2 31 (H) 20 - 29 04/20/2019 [facility] mmol/L 10:10 AM CDT Chloride, Whole 102 95 - 106 04/20/2019 [facility] Blood mmol/L 10:10 AM CDT Glucose, Whole 73 70 - 180 04/20/2019 [facility] Blood mg/dL 10:10 AM CDT Calcium 9.9 8.4 - 10.4 04/20/2019 [facility] mg/dL 10:10 AM CDT BUN Whole Blood 18 7 - 20 04/20/2019 [facility] mg/dL 10:10 AM CDT Creatinine, 0.9 0.7 - 1.2 04/20/2019 [facility] Whole Blood mg/dL 10:10 AM CDT Alkaline 68 40 - 150 04/20/2019 [facility] Phosphatase U/L 10:10 AM CDT ALT (SGPT) 73 (H) 0 - 55 U/L 04/20/2019 [facility] 10:10 AM CDT AST (SGOT) 37 10 - 40 04/20/2019 [facility] U/L 10:10 AM CDT Bilirubin, Total 0.8 0.2 - 1.2 04/20/2019 [facility] mg/dL 10:10 AM CDT Albumin 4.0 3.5 - 5.0 04/20/2019 [facility] g/dL 10:10 AM CDT Protein, Total 7.7 6.4 - 8.3 04/20/2019 [facility] g/dL 10:10 AM CDT Specimen Anatomical Collection Method / Collection Time Recei rufus Time (Source) Location / Volume Laterality Blood Venipuncture / 04/20/2019 9:04 04/20/2019 9:04 Unknown AM CDT AM CDT Wyatt Oneil MD LAB_1 Performing Organization Address City/State/ZIP Code Phon e Number [facility] [place] [address] [facility] TSH with Free T4 (if TSH Abnormal) (04/20/2019 9:04 AM CDT) P athologist Signature TSH, Reflex 1.91 0.30 - 04/20/2019 [facility] 4.50 12:07 PM CDT [facility] uIU/mL Specimen Anatomical Collection Method / Collection Time Recei rufus Time (Source) Location / Volume Laterality Blood Venipuncture / 04/20/2019 9:04 04/20/2019 9:04 Unknown AM CDT AM CDT Narrative [facility] - 04/20/2019 12:07 PM CDT Lab will automatically reflex to Free T4 when TSH results are <0.30 uIU/mL or >4.50 mIU/mL. Wyatt Oneil MD LAB_1 Performing Organization Address City/State/ZIP Code Phon e Number [facility] [address] [address] (ABNORMAL) Liver Panel(Hepatic Function Panel) (04/20/2019 9:04 AM CDT) [facility] Method Time Signature Alkaline 71 40 - 150 04/20/2019 [facility] Phosphatase U/L 11:49 AM CDT [facility] Bilirubin, 0.6 0.2 - 1.2 04/20/2019 [facility] Total mg/dL 11:49 AM CDT [facility] Bilirubin, 0.2 0.0 - 0.5 04/20/2019 [facility] Direct mg/dL 11:49 AM CDT [facility] AST (SGOT) 30 10 - 40 04/20/2019 [facility] U/L 11:49 AM CDT [facility] ALT (SGPT) 71 (H) 0 - 55 04/20/2019 [facility] U/L 11:49 AM CDT [facility] Protein, Total 7.8 6.4 - 8.3 04/20/2019 [facility] g/dL 11:49 AM CDT [facility] Albumin 4.4 3.5 - 5.0 04/20/2019 [facility] g/dL 11:49 AM CDT [facility] Specimen Anatomical Collection Method / Collection Time Recei rufus Time (Source) Location / Volume Laterality Blood Venipuncture / 04/20/2019 9:04 04/20/2019 9:04 Unknown AM CDT AM CDT Wyatt Oneil MD LAB_1 Performing Organization Address City/State/ZIP Code Phon e Number [facility] [address] [address] documented in this encounter Visit Diagnoses Diagnosis Hodgkin lymphoma, unspecified, lymph nod es of axilla and upper limb (HRC) documented in this encounter Care Teams Flooring Installer Relationship Specialty Start Date End Date No Primary/Referring, Phy PCP - General 09/23/18 documented as of this encounter
--- OUTSIDE RECORDS SUMMARY | 2022-06-04 15:43 | XMS_ITS | Encounter Summary ---
:1995 Author Organization [employer] Address [address] [place] [address] Care Team Providers Name Role Phone No Primary/Referring, Phy Primary Care Provider Unavailable Reason for Referral Consult/Transfer Care (Routine) - Closed Specialty Diagnoses / Procedures Referred By Contact Refer red To Contact Diagnoses LAUREL (obstructive sleep apnea) Ruth Ann Khan PA-C [address] [place] [address] Referral ID Status Reason Start Date Expiration Date Visits Requ ested Visits Authorized [id number] Closed 07/05/2019 10/03/2020 1 1 Scheduling Instructions [...] a co-payment, co-insurance and/or deductible. INSURED BY [employer]: If you are in sured by [employer] and plan to use a HP or HP Partner Provider of Dental Orthoti cs, we will request prior authorization for you. You will be notified by [facility] ers [employer] of their decision. If approved and if you plan to use a HP Provider of Dental Orthotics, the dental office will contact you to schedule an appointment. If you have not been called, please call one of these clinics where this service is provided [facility] . [facility] (scheduling at [facility] and [place]) [phone]. If you choose to use a non-HP [...] to make a determination on prior authorization. ANCE OFFICER Reason for Visit Reason Comments Follow Up, Test Results Encounter Details Date Type Department Care Team Description 06/30/2019 Telephone [facility] Ruth Ann Khan, Follow Up, Test [facility] [address] 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 Teresa Gomez RN 07/05/2019, 12:43 PM ANCE OFFICER Ruth Ann Khan PA-C - 07/05/2019 12:28 PM CST Order placed. Please call and tell the patient to call [phone] to schedule his consult visit. Thanks ANCE OFFICER Teresa Gomez RN - 07/04/2019 11:10 AM CST Spoke to pt, he verbalizes understanding. He would like to proceed with a referral for a MAD. Ruth Ann, Could you please place that referral order? Thank you! Teresa Gomez RN 07/04/2019, 11:15 AM ANCE OFFICER Ruth Ann Khan PA-C - 06/30/2019 10:29 AM CST His HST revealed very mild LAUREL, so this would qualify him to use the MAD if he wants to. Team, please call and tell him this and if he wants to try the MAD, I can order it. Let me know what he wants. Thanks, ANCE OFFICER documented in this encounter Plan of Treatment Upcoming Encounters Date Type Specialty Care Team Description 06/12/2022 Appointment Urology Raj Castro MD [address] [place], [place] [address] (Wo rk) 09/28/2022 Telemedicine Psychiatry Humera Bush MD [address] [place], [place] [address] (Wo rk) Scheduled Referrals Name Type Priority Associated Diagnoses Order S chedule Dental Sleep Apnea Referral Routine LAUREL (obstructive sleep Ordered: 07/05/2019 Consult apnea) documented as of this encounter Visit Diagnoses Diagnosis LAUREL (obstructive sleep apnea) - Primary Obstructive sleep apnea (adult) (pediatr ic) documented in this encounter Care Teams Expediter Relationship Specialty Start Date End Date No Primary/Referring, Phy PCP - General 09/23/18 documented as of this encounter
--- OUTSIDE RECORDS SUMMARY | 2022-06-04 15:43 | XMS_ITS | Encounter Summary ---
:1995 Author Organization [employer] Address [address] [place] [address] Care Team Providers Name Role Phone No Primary/Referring, Phy Primary Care Provider Unavailable Reason for Referral Consult/Transfer Care (Routine) - Closed Specialty Diagnoses / Procedures Referred By Contact Refer red To Contact Diagnoses Autism (HRC) Attention deficit disorder, unspecified hyperactivity presence Depression, unspecified depression type Anxiety disorder, unspecified type (HRC) Hanane Padilla MD [address] [place], [place] [address] Referral ID Status Reason Start Date Expiration Date Visits Requ ested Visits Authorized [id number] Closed 06/29/2019 09/27/2020 1 1 Scheduling Instructions Your provider has recommended an appoint ment with Behavioral Health. You may call [phone] to schedule your appointmen t. This recommended service/s may not be covered by your health plan (health insu aziza). To find out your specific benefit coverage, please call the number on your insurance card.?? Please note that in order to maintain access for all patients, [facility] does have a late cancellation policy.?? In order to avoid being restri cted from scheduling future appointments in Behavioral Health you will need to cance l at least 48 hours in advance. We request you that you arrive 30 minutes before yo ur first appointment to complete paperwork. MANAGER Reason for Visit Reason Comments Welcome To Medicare Encounter Details Date Type Department Care Team Description 06/29/2019 Office Visit [facility] Hanane Padilla MD Welcome to Medicare preventive visit (Pr imary Dx); Practice [address] Autism; [address] [place], [place] Atten tion deficit disorder, unspecified hyperactivity presence; [place]. 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 documented as of this encounter Last Filed Vital Signs Vital Sign Reading Time Taken Comments Blood Pressure 111/74 06/29/2019 2:39 PM COPY MANAGER Pulse 99 06/29/2019 2:39 PM COPY MANAGER Temperature 36.9 ??C (98.4 ??F) 06/29/2019 2:39 PM COPY MANAGER Respiratory Rate 20 06/29/2019 2:39 PM COPY MANAGER Oxygen Saturation - - Inhaled Oxygen Concentration - - Weight 62.6 kg (138 lb) 06/29/2019 2:39 PM COPY MANAGER Height 154.9 cm (5' 1) 06/29/2019 2:39 PM COPY MANAGER Body Mass Index 26.07 06/29/2019 2:39 PM COPY MANAGER documented in this encounter Patient Instructions Patient [...] and are not due for another year. MANAGER documented in this encounter Progress Notes Hanane [...] [place] [facility] [place]. He is currently on Abilify, clomipramine, Ritalin and pro p.r.n.. 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 History of a spina bifid the, and [...] for immunization Plan: Influenza IIV4 (Quadrivalent) 0.5mL (64502) Hanane Padilla MD MANAGER documented in this encounter Plan of Treatment Upcoming Encounters Date Type Specialty Care Team Description 06/12/2022 Appointment [facility]rology Raj Castro MD [address] [facility] [place] [place] [address] (Wo rk) 09/28/2022 Telemedicine Psychiatry Humera Bush MD [address] [place], [place] [address] (Wo rk) Scheduled Referrals Name Type Priority Associated Diagnoses [facility] Referral Routine Autism Ordered: 06/29/2019 [...] (HR) documented in this encounter Care Teams Compensation Administrator Relationship Specialty Start Date End Date No Primary/Referring, Phy PCP - General 09/23/18 documented as of this encounter
--- OUTSIDE RECORDS SUMMARY | 2022-06-04 15:43 | XMS_ITS | Encounter Summary ---
:1995 Author Organization [employer] Address [address], [place] [address] Care Team Providers Name Role Phone No Primary/Referring, Phy Primary Care Provider Unavailable Reason for Referral Consult/Transfer Care (Routine) - Closed Specialty Diagnoses / Procedures Referred By Contact Refer red To Contact Diagnoses LAUREL (obstructive sleep apnea) Ruth Ann Khan PA-C [address] [place] [address] Referral ID Status Reason Start Date Expiration Date Visits Requ ested Visits Authorized [id number] Closed 06/13/2019 09/11/2020 1 1 Scheduling Instructions . AURANT AREA MANAGER Reason for Visit Procedure/Equipment (Routine) - Closed Specialty Diagnoses / Procedures Referred By Contact Refer red To Contact Diagnoses Snoring Daytime sleepiness History of sleep apnea Ruth Ann Khan PA-C [address] [place] [address] Referral ID Status Reason Start Date Expiration Date Visits Requ ested Visits Authorized [id number] Closed 05/16/2019 08/14/2020 1 1 Encounter Details Date Type Department Care Team Description 06/12/2019 Sleep Procedure [facility] Ruth Ann Khan LAUREL (obstructive sleep apnea) (Primary Dx); [facility] IAN Fink Sleep disturbance [address] [place] [address] [place], [place] [phone] [address] Social History Tobacco Use Types Packs/Day Years Used Date Smoking Tobacco: Never Smokeless Tobacco: Never Alcohol Use Standard Drinks/Week Comments Yes 0 (1 standard drink = 0.6 oz pure alcoho l) occasional Sex Assigned at Date Recorded 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 [facility] 1. Your sleep [...] Information Name Fly Moran Gender Male ID [id number] Date of 1995 Recording Information Recording Date [...] % Respiration Rate 13.1 16.2 Fly Moran, [id number] Created On: 06/13/2019 9:15:05 AM HST - Diagnostic/OA Study AURANT AREA MANAGER documented in this encounter Progress Notes Ida Hernandez - 06/12/2019 3:00 PM CST Images from the original note were not included. HST - Diagnostic/OA Study Patient Information Name Fly Moran Gender Male ID [id number] Date of 1995 Recording Information Recording Date [...] % Respiration Rate 13.1 16.2 Fly Moran, [id number] Created On: 06/13/2019 9:15:05 AM HST - Diagnostic/OA Study AURANT AREA MANAGER Ruth Ann Vegas MD - 06/12/2019 3:00 PM CST Home Sleep Test (HST) Interpretation Date of Interpretation: 06/15/2019 BMI: Estimated body mass index is 26.26 kg/m?? as calculated from the following: Height as of this encounter: 5' 1 (1.549 m). Weight as of this encounter: 139 lb (63 kg). Petersburg Score: Petersburg Score: 14 Neck Circumference: 14.5 Device Name/Type: [...] this sleep study. Ruth Ann Vegas MD AURANT AREA MANAGER documented in this encounter Nursing Notes Ida Hernandez - 06/12/2019 3:00 PM CST Patient was given the option to begin treatment immediately if HST shows mild/moderate apnea and possible titration for severe apnea or she may choose a follow up with a sleep provider. Patient prefersto follow up with a sleep provider before proceeding with treatment if HST is positive for LAUREL. AURANT AREA MANAGER Ida Hernandez - 06/12/2019 3:00 PM CST HST/diagnostic. Patient slept in both supine and lateral positions. Study shows that the patient hasa mild degree of sleep apnea. EKG appears normal. No snores were heard on this recording. A follow up order was placed per patient preference before proceeding with treatment. AURANT AREA MANAGER documented in this encounter Plan of Treatment Upcoming Encounters Date Type Specialty Care Team Description 06/12/2022 Appointment Urology Raj Castro MD [address] [place], [place] [address] (Wo rk) 09/28/2022 Telemedicine Psychiatry Humera Bush MD [address] [place], [place] [address] (Wo rk) Scheduled Referrals Name Type Priority Associated Diagnoses Order S chedule SLEEP STUDY RESULTS Referral Routine LAUREL (obstructive slee p Ordered: 06/13/2019 (PULM) apnea) documented as of this encounter Visit Diagnoses Diagnosis LAUREL (obstructive sleep apnea) - Primary Obstructive sleep apnea (adult) (pediatr ic) Sleep disturbance Sleep disturbance, unspecified documented in this encounter Care Teams Storyboard Artist Relationship Specialty Start Date End Date No Primary/Referring, Phy PCP - General 09/23/18 documented as of this encounter
--- OUTSIDE RECORDS SUMMARY | 2022-06-04 15:43 | XMS_ITS | Encounter Summary ---
:1995 Author Organization [employer] Address [address], [place] [address] Care Team Providers Name Role Phone No Primary/Referring, Phy Primary Care Provider Unavailable Reason for Visit Reason Comments Follow Up, Test Results Consult/Transfer Care (Routine) - Closed Specialty Diagnoses / Procedures Referred By Contact Refer red To Contact Diagnoses LAUREL (obstructive sleep apnea) Ruth Ann Khan PA-C [address] [place] [address] Referral ID Status Reason Start Date Expiration Date Visits Requ ested Visits Authorized [id number] Closed 06/13/2019 09/11/2020 1 1 Encounter Details Date Type Department Care Team Description 07/28/2019 Office Visit Specialty Center Steph Sood, LAUREL ( obstructive sleep [address] [facility] CORONER'S JUROR, MARKETING DEVELOPMENT SPECIALIST apnea) (Primary Dx) Clinic [address] [place] [address]. 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 documented as of this encounter Last Filed Vital Signs Vital Sign Reading Time Taken Comments Blood Pressure 121/81 07/28/2019 2:27 PM WARP KNITTING MACHINE OPERATOR Pulse 105 07/28/2019 2:27 PM WARP KNITTING MACHINE OPERATOR Temperature 36.6 ??C (97.8 ??F) 07/28/2019 2:01 PM WARP KNITTING MACHINE OPERATOR Respiratory Rate 12 07/28/2019 2:01 PM WARP KNITTING MACHINE OPERATOR Oxygen Saturation 100% 07/28/2019 2:01 PM WARP KNITTING MACHINE OPERATOR Inhaled Oxygen Concentration - - Weight 57.7 kg (127 lb 3.2 oz) 07/28/2019 2:01 PM WARP KNITTING MACHINE OPERATOR Height 154.9 cm (5' 1) 07/28/2019 2:01 PM WARP KNITTING MACHINE OPERATOR Body Mass Index 24.03 07/28/2019 2:01 PM WARP KNITTING MACHINE OPERATOR documented in this encounter Patient Instructions Patient InstructionsSteph Sood, CORONER'S JUROR, MARKETING DEVELOPMENT SPECIALIST - 07/28/2019 1:45 PM CST If you [...] co-payment, co-insurance and/or deductible. ?? INSURED BY [employer]: If you are insured by [employer] and plan to use a HP or HP Partner Provider of Dental Orthotics, we will request prior authorization for you. You will be notified by [employer] of their decision. If approved and if you plan to use a HP Provider of Dental Orthotics, the dental office will contact you to schedule an appointment. ? If you have not been called, please call one of these clinics where this service is provided ?? [facility] [phone]. [facility] (scheduling at [facility] [place] and [place]) [phone]. ? If you choose to use a [...] to make a determination on prior authorization. KNITTING MACHINE OPERATOR documented in this encounter Progress Notes Steph Sood APRN, CNP - 07/28/2019 1:45 PM CST Chief Complaint Fly Moran is a 24 y.o. old male who is here to discuss results of Home Sleep Test and develop aplan of care. S: HPI Patient was originally seen for complaints of daytime sleepiness, snoring and untreated LAUREL. Baseline [place] Sleepiness Score was 14/24. A Home Sleep [...] oral appliance. Patient given options for medical consultant providers and patient chose [employer]. Reviewed other options for treating sleep apnea [...] coordination of care. Steph Sood APRN, CNP KNITTING MACHINE OPERATOR documented in this encounter Plan of Treatment Upcoming Encounters Date Type Specialty Care Team Description 06/12/2022 Appointment Urology Raj Castro MD [address] [place], [place] [address] (Jeannie osei) 09/28/2022 Telemedicine Psychiatry Humera Bush MD [address] [place], [place] [address] (Jeannie osei) Scheduled Referrals Name Type Priority Associated Diagnoses Order S chedule SLEEP STUDY RESULTS Referral Routine LAUREL (obstructive slee p Ordered: 06/13/2019 (PULM) apnea) documented as of this encounter Visit Diagnoses Diagnosis LAUREL (obstructive sleep apnea) - Primary Obstructive sleep apnea (adult) (pediatr ic) documented in this encounter Care Teams Hand Salter Relationship Specialty Start Date End Date No Primary/Referring, Phy PCP - General 09/23/18 documented as of this encounter
--- OUTSIDE RECORDS SUMMARY | 2022-06-04 15:43 | XMS_ITS | Encounter Summary ---
:1995 Author Organization [employer] Address [address] [place] [address] Care Team Providers Name Role Phone No Primary/Referring, Phy Primary Care Provider Unavailable Encounter Details Date Type Department Care Team Description 04/20/2019 Office Visit [facility] Wyatt Oneil W, Hodgkin lymphoma, [address] unspecified, lymph [address]. 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 Mild neutropenia persisting on lab testing [facility] Jun 2017 ?? TREATMENT 4 months of [...] CDT This office note has been dictated. [id number] Wyatt Oneil MD Wyatt Oneil MD - 04/20/2019 12:00 AM CDT LUCÍA MARTINEZ CSN: [id number] CLINIC NOTE DATE OF SERVICE: 04/20/2019 : 1995 DIAGNOSES: 1. 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 2. Mild neutropenic persistent lab testing at [facility] in June 2017. TREATMENT: Four months of the ABVe-PC chemotherapy followed by 2100 cGy of radiation to the chest and mediastinum, completed in June 2013. SUBJECTIVE: The patient and his mother return for followup of history of stage II nodular sclerosing Hodgkin disease. He is a 23-year-old male living at home with his parents in [place] and attending [employer] for [employer]. He is now over 6 years status [...] an echocardiogram August 2020. WYATT ONEIL MD [facility]ALIL /[id number] documented in this encounter Plan of Treatment Upcoming Encounters Date Type Specialty Care Team Description 06/12/2022 Appointment Urology Raj Castro MD [address] [place], [place] [address] (Wo sea) 09/28/2022 Telemedicine Psychiatry Humera Bush MD [address] [place], [place] [address] (Jeannie osei) documented as of this encounter Results TSH with Free T4 (if TSH Abnormal) (04/20/2020 9:39 AM CDT) athologist Signature TSH, Reflex 3.00 0.30 - 4.50 04/20/2020 [facility] uIU/mL 5:14 PM CDT LABORATORY Specimen Anatomical Collection Method / Collection Time Recei rufus Time (Source) Location / Volume Laterality Blood Venipuncture / 04/20/2020 9:39 04/20/2020 9:39 Unknown AM CDT AM CDT Narrative [facility] - 04/20/2020 5:14 P M CDT Lab will automatically reflex to Free T4 when TSH results are <0.30 uIU/mL or >4.50 mIU/mL. Wyatt Oneil MD LAB_1 Performing Organization Address City/State/ZIP Code Phon e Number [facility] [address] [place] [address] (ABNORMAL) Oncology Complete Metabolic Panel ([facility]) (04/20/2019 9:04 AM CDT) athologist Signature Sodium, WB 139 136 - 145 04/20/2019 [facility] mmol/L 10:10 AM CDT Potassium, Whole 3.9 3.5 - 5.1 04/20/2019 [facility] Blood mmol/L 10:10 AM CDT CO2 31 (H) 20 - 29 04/20/2019 [facility] mmol/L 10:10 AM CDT Chloride, Whole 102 95 - 106 04/20/2019 [facility] Blood mmol/L 10:10 AM CDT Glucose, Whole 73 70 - 180 04/20/2019 [facility] Blood mg/dL 10:10 AM CDT Calcium 9.9 8.4 - 10.4 04/20/2019 [facility] mg/dL 10:10 AM CDT BUN Whole Blood 18 7 - 20 04/20/2019 [facility] mg/dL 10:10 AM CDT Creatinine, 0.9 0.7 - 1.2 04/20/2019 [facility] Whole Blood mg/dL 10:10 AM CDT Alkaline 68 40 - 150 04/20/2019 [facility] Phosphatase U/L 10:10 AM CDT ALT (SGPT) 73 (H) 0 - 55 U/L 04/20/2019 [facility] 10:10 AM CDT AST (SGOT) 37 10 - 40 04/20/2019 [facility] U/L 10:10 AM CDT Bilirubin, Total 0.8 0.2 - 1.2 04/20/2019 [facility] mg/dL 10:10 AM CDT Albumin 4.0 3.5 - 5.0 04/20/2019 [facility] g/dL 10:10 AM CDT Protein, Total 7.7 6.4 - 8.3 04/20/2019 [facility] g/dL 10:10 AM CDT Specimen Anatomical Collection Method / Collection Time Recei rufus Time (Source) Location / Volume Laterality Blood Venipuncture / 04/20/2019 9:04 04/20/2019 9:04 Unknown AM CDT AM CDT Wyatt Oneil MD LAB_1 Performing Organization Address City/[facility]/ZIP Code Phon e Number [facility] [address] [place] [address] SOUTH TSH with Free T4 (if TSH Abnormal) (04/20/2019 9:04 AM CDT) P athologist Signature TSH, Reflex 1.91 0.30 - 04/20/2019 [facility] 4.50 12:07 PM CDT [facility] uIU/mL Specimen Anatomical Collection Method / Collection Time Recei urfus Time (Source) Location / Volume Laterality Blood Venipuncture / 04/20/2019 9:04 04/20/2019 9:04 Unknown AM CDT AM CDT Count includes the [facility] - 04/20/2019 12:07 PM CDT Lab will automatically reflex to Free T4 when TSH results are <0.30 uIU/mL or >4.50 mIU/mL. Wyatt Oneil MD LAB_1 Performing Organization Address City/State/ZIP Code Phon e Number [facility] [address] [id number] (ABNORMAL) Liver Panel(Hepatic Function Panel) (04/20/2019 9:04 AM CDT) Patholo gist Method Time Signature Alkaline 71 40 - 150 04/20/2019 [facility] Phosphatase U/L 11:49 AM CDT [facility] Bilirubin, 0.6 0.2 - 1.2 04/20/2019 [facility] Total mg/dL 11:49 AM CDT [facility] Bilirubin, 0.2 0.0 - 0.5 04/20/2019 [facility] Direct mg/dL 11:49 AM CDT [facility] AST (SGOT) 30 10 - 40 04/20/2019 [facility] U/L 11:49 AM CDT [facility] ALT (SGPT) 71 (H) 0 - 55 04/20/[facility] U/L 11:49 AM CDT [facility] Protein, Total 7.8 6.4 - 8.3 04/20/2019 [facility] g/dL 11:49 AM CDT [facility] LAB Albumin 4.4 3.5 - 5.0 04/20/2019 [facility] g/dL 11:49 AM CDT [facility] Specimen Anatomical Collection Method / Collection Time Recei rufus Time (Source) Location / Volume Laterality Blood Venipuncture / 04/20/2019 9:04 04/20/2019 9:04 Unknown AM CDT AM CDT Wyatt Oneil MD LAB_1 Performing Organization Address City/State/[facility] Code Phon e Number [facility] [address] [address] documented in this encounter Visit Diagnoses Diagnosis Hodgkin lymphoma, unspecified, lymph nod es of axilla and upper limb (HRC) - Primary documented in this encounter Care Teams Showroom Consultant Relationship Specialty Start Date End Date No Primary/Referring, Phy PCP - General 09/23/18 documented as of this encounter
--- OUTSIDE RECORDS SUMMARY | 2022-06-04 15:43 | XMS_ITS | Encounter Summary ---
:1995 Author Organization [employer] Address [address] [place] [address] Care Team Providers Name Role Phone No Primary/Referring, Phy Primary Care Provider Unavailable Reason for Visit Reason Comments Questions cath supplies Encounter Details Date Type Department Care Team Description 05/24/2019 Telephone Specialty Center [address] Raj Castro, Questions (cath Urology Clinic MD supplies) [address] [facility]. 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 Also faxed order to his case workerCraig at [phone] as requested. No further questions at this time. MACR [place] 05/24/2019, 12:12 PM Y FARM OPERATOR Hafsa Larson - 05/24/2019 11:24 AM CST Patient called states he's looking to get some new catheters. Patient states he needs to have the Rxsent to case advocate. Is requesting a call back on who he should reach out in regards to the new caths. Please advise. Hafsa Larson 05/24/2019, 11:25 AM Y FARM OPERATOR documented in this encounter Plan of Treatment Upcoming Encounters Date Type Specialty Care Team Description 06/12/2022 Appointment Urology Raj Castro MD [address] [place], [place] [address] (Wo rk) 09/28/2022 Telemedicine Psychiatry Humera Bush MD [address] [place], [place] [address] (Wo rk) documented as of this encounter Visit Diagnoses Not on filedocumented in this encounter Care Teams Senior Windows Systems Administrator Relationship Specialty Start Date End Date No Primary/Referring, Phy PCP - General 09/23/18 documented as of this encounter
--- OUTSIDE RECORDS SUMMARY | 2022-06-04 15:43 | XMS_ITS | Encounter Summary ---
:1995 Author Organization [employer] Address [address] [place] [address] Care Team Providers Name Role Phone Rob Tillman MD Primary Care Provider Reason for Visit Reason Comments Follow Up Asthma Encounter Details Date Type Department Care Team Description 08/16/2019 Telephone Central Outreach Hanane Padilla MD Follow Up Asthma [address] [place] [place] [address] [address] [place], [place] [phone] (Wo rk) [address] [phone] Social History Tobacco Use Types Packs/Day Years Used Date Smoking Tobacco: Never Smokeless Tobacco: Never Alcohol Use Standard Drinks/Week Comments Yes 0 (1 standard drink = 0.6 oz pure alcoho l) occasional Sex Assigned at Date Recorded Male 07/12/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 Caitlin Mcintosh RN 08/16/2019, 4:01 PM ENTARY SCHOOL SCIENCE TEACHER documented in this encounter Plan of Treatment Upcoming Encounters Date Type Specialty Care Team Description 06/12/2022 Appointment Urology Raj Castro MD [address] [place], [place] [address] (Wo rk) 09/28/2022 Telemedicine Psychiatry Humera Bush MD [address] [place], [place] [address] (Wo rk) documented as of this encounter Visit Diagnoses Not on filedocumented in this encounter Care Teams Forestry Aide Relationship Specialty Start Date End Date Rob Tillman MD PCP - General Physical Medicine and 08/01/19 [address] [facility] [place] [address] documented as of this encounter
--- OUTSIDE RECORDS SUMMARY | 2022-06-04 15:43 | XMS_ITS | Encounter Summary ---
:1995 Author Organization [facility] Address [address], [place] [address] Care Team Providers Name Role Phone Rob Tillman MD Primary Care Provider Encounter Details Date Type Department Care Team Description 08/15/2019 Correspondence [facility] Sophie Physical Medicine [address] [facility] [address] [facility] 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 documented as of this encounter Plan of Treatment Upcoming Encounters Date Type Specialty Care Team Description 06/12/2022 Appointment Urology Raj Castro MD [address] [place], [place] [address] (Wo rk) 09/28/2022 Telemedicine Psychiatry Humera Bush MD [address] [place], [place] [address] (Wo rk) documented as of this encounter Visit Diagnoses Not on filedocumented in this encounter Care Teams Surface Plate Inspector Relationship Specialty Start Date End Date Rob Tillman MD PCP - General Physical Medicine and 08/01/19 295 [facility] [place] [place] [address] documented as of this encounter
--- OUTSIDE RECORDS SUMMARY | 2022-06-04 15:43 | XMS_ITS | Encounter Summary ---
:1995 Author Organization [facility] Address [address] [place] [address] Care Team Providers Name Role Phone No Primary/Referring, Phy Primary Care Provider Unavailable Reason for Referral Procedure/Equipment (Routine) - Closed Specialty Diagnoses / Procedures Referred By Contact Refer red To Contact Diagnoses Snoring Daytime sleepiness History of sleep apnea Ruth Ann Khan PA-C [address] [place] [address] Referral ID Status Reason Start Date Expiration Date Visits Requ ested Visits Authorized [id number] Closed 05/16/2019 08/14/2020 1 1 Scheduling Instructions [...] nformation for the site where you will picking machine operator helper your device is as follows: On license of [facility] [address] [address] (option 2) [email or web address] 1. You will be scheduled for 2 [...] may be referred back to your [facility] provider for a results visit to discuss the next steps. b.You may be referred for an in-center sleep study for a more thorough diagnostic test. c.You may be referred for an in-center sleep study to titrate Positive Airway Pressure (PAP) for treatment of obstruct edwin sleep apnea (LAUREL). D ENUMERATOR Reason for Visit Reason Comments New Arrival Screening #1 Referred by sindi Coello k measures 14.5 inches. Consult/Transfer Care (Routine) - Closed Specialty Diagnoses / Procedures Referred By Contact Refer red To Contact Diagnoses History of snoring Rob Tillman MD [address] [place] [address] Referral ID Status Reason Start Date Expiration Date Visits Requ ested Visits Authorized [id number] Closed 04/03/2019 07/02/2020 1 1 Encounter Details Date Type Department Care Team Description 05/16/2019 Office Visit Specialty Center Ruth Ann Khan (Primary Dx); [address] [facility] Daytime sleepiness; Clinic [address] [place] History of sleep apnea; [address] 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 documented as of this encounter Last Filed Vital Signs Vital Sign Reading Time Taken Comments Blood Pressure 120/78 05/16/2019 1:39 PM FIELD ENUMERATOR Pulse 104 05/16/2019 1:39 PM FIELD ENUMERATOR Temperature 36.2 ??C (97.1 ??F) 05/16/2019 1:39 PM FIELD ENUMERATOR Respiratory Rate 12 05/16/2019 1:39 PM FIELD ENUMERATOR Oxygen Saturation 99% 05/16/2019 1:39 PM FIELD ENUMERATOR Inhaled Oxygen Concentration - - Weight 63 kg (139 lb) 05/16/2019 1:39 PM FIELD ENUMERATOR Height 154.9 cm (5' 1) 05/16/2019 1:39 PM FIELD ENUMERATOR Body Mass Index 26.26 05/16/2019 1:39 PM FIELD ENUMERATOR documented in this encounter Patient Instructions Patient InstructionsRuth Ann Khan PA-C - 05/16/2019 1:45 PM CST A sleep test is recommended to further evaluate your symptoms. I ordered a home sleep test and someone will call you to set up a date and time to picking machine operator helper the home sleep test equipment and instruct [...] evening. Avoid Daytime Napping On IPAD try shift coordinator to shut off blue light There is an fermin to remove blue light from your computer [employer] D ENUMERATOR documented in this encounter Progress Notes Ruth Ann Khan PA-C - 05/16/2019 1:45 PM CST PULMONARY SLEEP CONSULT CHIEF COMPLAINT: Fly Moran is a 23 y.o. old male here for a sleep consultation regarding daytime sleepiness, snoring and untreated LAUREL. He completed a PSG at [facility] about 8 years ago and opted not [...] Average number of naps each day: none [place] sleepiness score is 14/24. Movement during sleep [...] of care. Ruth Ann Khan PA-C 05/16/19 D ENUMERATOR documented in this encounter Plan of Treatment Upcoming Encounters Date Type Specialty Care Team Description 06/12/2022 Appointment Urology Raj Castro MD [address] [place], [place] [address] (Wo rk) 09/28/2022 Telemedicine Psychiatry Humera Bush MD [address] [place], [place] [address] (Jeannie osei) Scheduled Referrals [...] (HRC) documented in this encounter Care Teams Armored Service Technician Relationship Specialty Start Date End Date No Primary/Referring, Phy PCP - General 09/23/18 documented as of this encounter
--- OUTSIDE RECORDS SUMMARY | 2022-06-04 15:43 | XMS_ITS | Encounter Summary ---
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
--- OUTSIDE RECORDS SUMMARY | 2022-06-04 15:43 | XMS_ITS | Encounter Summary ---
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
--- OUTSIDE RECORDS SUMMARY | 2022-06-04 15:43 | XMS_ITS | Encounter Summary ---
:1995 Author Organization [employer] Address [address] [place] [address] Care Team Providers Name Role Phone No Primary/Referring, Phy Primary Care Provider Unavailable Reason for Referral Consult/Transfer Care (Routine) - Closed Specialty Diagnoses / Procedures Referred By Contact Refer red To Contact Diagnoses History of snoring Rob Tillman MD [address] [place] [address] Referral ID Status Reason Start Date Expiration Date Visits Requ ested Visits Authorized [id number] Closed 04/03/2019 07/02/2020 1 1 Scheduling Instructions Your provider has recommended an appoint ment with [facility]. This is not a sleep study order and must first be re viewed by a sleep specialist to determine the next steps. The review process looks at multiple factors including your insurance requirements, personal health history, a nd [place] [employer] guidelines. This referral [...] next 7 days, please contact us at [phone]. Procedure/Equipment (Routine) - Closed Specialty Diagnoses / Procedures Referred By Contact Refer red To Contact Diagnoses Spina bifida without hydrocephalus, unspecified spinal region (HRC) Gait abnormality Rob Tillman MD Procedures Wheelchair Cushion [address] [place] [address] Referral ID Status Reason Start Date Expiration Date Visits Requ ested Visits Authorized [id number] Closed 04/03/2019 07/02/2020 1 1 Reason for Visit Reason Comments Revisit Spina bifida Encounter Details Date Type Department Care Team Description 04/03/2019 Office Visit Rob Bagley Spina bifi da without hydrocephalus, unspecified spinal region (HRC) (Primary Dx); [facility] MD Sophie Gait abnormality; Physical Medicine 295 [facility] Neurogenic bowel; [address] [facility]. 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 [...] formal therapies, working on HEP Equipment: MWC, Hadaptd crutches ADL's: independent Past Medical History: Spina [...] ? Molds & Smuts Other, see comments [place] mold- Respiratory Distress ??? Other Swelling Spider [...] 06/12/2022 Appointment Urology Raj Castro MD [address] [facility] [place] [place] [address] (Jeannie osei) 09/28/2022 Telemedicine Psychiatry Humera Bush MD [address] [place], [place] [address] (Jeannie osei) Scheduled Referrals Name Type Priority Associated Diagnoses Order S [facility] Referral Routine History of snoring Ordered : 04/03/2019 documented as of this encounter Visit Diagnoses Diagnosis Spina bifida without hydrocephalus, unsp ecified spinal region (HRC) - Primary Gait abnormality Abnormality of gait Neurogenic bowel Neurogenic bladder Neurogenic bladder, NOS History of snoring documented in this encounter Care Teams Hot Mill Shearer Relationship Specialty Start Date End Date No Primary/Referring, Phy PCP - General 09/23/18 documented as of this encounter
--- OUTSIDE RECORDS SUMMARY | 2022-06-04 15:43 | XMS_ITS | Encounter Summary ---
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 [place] [place] [address] documented as of this encounter
--- OUTSIDE RECORDS SUMMARY | 2022-06-04 15:44 | XMS_ITS | Encounter Summary ---
:1996 Author Organization [facility] Address [address] [place] [address] Care Team Providers Name Role Phone Unavailable Primary Care Provider Unavailable Reason for Visit Procedure/Equipment (Routine) - Incomplete Specialty Diagnoses / Procedures Referred By Contact Refer red To Contact Diagnoses Spina bifida, unspecified hydrocephalus presence, unspecified spinal region (HRC) Matthew Hansen MD Procedures XR Scoliosis 2 Views [address] [place] [address] Referral ID Status Reason Start Date Expiration Date Visits V isits Requested Authorized [id number] Incomplete 06/30/2018 09/29/2019 1 1 Encounter Details Date Type Department Care Team Description 06/30/2018 [facility], Procedure [facility] Alen Castro unspecified Radiology 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 spinal region (HRC) documented in this encounter Results XR Scoliosis 2 Views (06/30/2018 1:19 PM TARIFF COMPILING CLERK) Anatomical Region Laterality Modality Spine, C-Spine, T-Spine, L-Spine Compute d Radiography Specimen (Source) Anatomical Collection Method Collection Time Re ceived Time Location / / Volume Laterality 06/30/2018 1:19 PM TARIFF COMPILING CLERK Narrative 06/30/2018 2:47 PM TARIFF COMPILING CLERK [facility] XR SCOLIOSIS 2 VIEWS 06/30/2018 1:19 [...] note might be different from the original. [facility] XR SCOLIOSIS 2 VIEWS 06/30/2018 1:19 [...]
--- OUTSIDE RECORDS SUMMARY | 2022-06-04 15:44 | XMS_ITS | Encounter Summary ---
:1995 Author Organization [employer] Address [address] [place] [address] Care Team Providers Name Role Phone Unavailable Primary Care Provider Unavailable Encounter Details Date Type Department Care Team Description 05/16/2018 Telephone [facility] Unass igned, Provider Center Neurosurgery/Ortho [address] [place] [address] [address] [facility]. 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 Hansen on 06/30/17 at 1:00PM. Pt was in agreement of date, time, and location for appt. Ankita Rubio 05/27/2018, 11:55 AM K MECHANIC Billy Thomas - 05/20/2018 3:43 PM CST [...] when. Patient was provided our clinic number [phone] to return call to schedule. Will wait for his return call to schedule. If he does not will try calling again late next week. Billy Thomas 05/20/2018, 3:45 PM K MECHANIC Melania Fair - 05/18/2018 10:48 AM CST LMTCB K MECHANIC Melania Fair - 05/17/2018 10:32 AM CST LMTCB K MECHANIC Billy Thomas - 05/16/2018 8:14 AM CST LMTRC Per Radha, MARC Ely is referring this patient for a 2nd opinion with Dr. Hansen for spina bifida. Ok per MARC Chavira for next available. Billy Thomas 05/16/2018, 8:17 AM K MECHANIC documented in this encounter Plan of Treatment Upcoming Encounters Date Type Specialty Care Team Description 06/12/2022 Appointment Urology Raj Castro MD [address] [place], [place] [address] (Wo rk) 09/28/2022 Telemedicine Psychiatry Humera Bush MD [address] [place], [place] [address] (Wo rk) documented as of this encounter Visit Diagnoses Not on filedocumented in this encounter
--- OUTSIDE RECORDS SUMMARY | 2022-06-04 15:44 | XMS_ITS | Encounter Summary ---
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
--- OUTSIDE RECORDS SUMMARY | 2022-06-04 15:44 | XMS_ITS | Encounter Summary ---
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 documented in this encounter Results SCANNED LAB (07/13/2017 12:00 AM ECHO VASCULAR TECH) Specimen (Source) Anatomical Location Collection Method / Collectio n Time Received Time / Laterality Volume 07/13/2017 Narrative This result has an attachment that is no t available. Phy No Primary/Referring LAB_1 documented in this encounter Visit Diagnoses Not on filedocumented in this encounter
--- OUTSIDE RECORDS SUMMARY | 2022-06-04 15:44 | XMS_ITS | Encounter Summary ---
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 documented as of this encounter Plan of Treatment Upcoming Encounters Date Type Specialty Care Team Description 06/12/2022 Appointment Urology Raj Castro MD [address] [place], [place] [address] (Wo rk) 09/28/2022 Telemedicine Psychiatry Humera Bush MD [address] [place], [place] [address] (Wo rk) documented as of this encounter Visit Diagnoses Not on filedocumented in this encounter Care Teams Deputy Attorney General Relationship Specialty Start Date End Date Rob Tillman MD PCP - General Physical Medicine and 08/01/19 295 [facility] Rehabilitation [place], [place] [id number] documented as of this encounter
--- OUTSIDE RECORDS SUMMARY | 2022-06-04 15:44 | XMS_ITS | Encounter Summary ---
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 documented in this encounter Results OUTSIDE IMAGING (07/13/2017 12:00 AM RACQUET MAKER) Anatomical Region Laterality Modality Other Specimen (Source) Anatomical Location Collection Method / Collectio n Time Received Time / Laterality Volume 07/13/2017 Narrative This result has an attachment that is no t available. Phy No Primary/Referring RAD_1 documented in this encounter Visit Diagnoses Not on filedocumented in this encounter Care Teams Business Agent Relationship Specialty Start Date End Date No Primary/Referring, Phy PCP - General 09/23/18 documented as of this encounter
--- OUTSIDE RECORDS SUMMARY | 2022-06-04 15:44 | XMS_ITS | Encounter Summary ---
:1995 Author Organization [employer] Address [address] [place] [address] Care Team Providers Name Role Phone Unavailable Primary Care Provider Unavailable Encounter Details Date Type Department Care Team Description 04/21/2018 Lab Visit [facility] Hodgkin lymphoma, [address] 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 documented as of this encounter Progress Notes [...] Description 06/12/2022 Appointment Urology Raj Castro MD [address] [place] [address] (Wo rk) 09/28/2022 Telemedicine Psychiatry Humera Bush MD [address] [place], [place] [address] (Wo rk) documented as [...] 04/21/2018 7:56 PM C DT Performed at [facility], [address] ??[id number] Wyatt Oneil MD LAB_1 Performing Organization Address City/State/ZIP Code Phon e Number [facility] [phone] Liver Panel(Hepatic Function Panel) (04/21/2018 2:58 PM CDT) [facility] Method Time Signature Alkaline 79 40 [...] 7:52 PM C DT Performed at [address] ??[id number] Wyatt Oneil MD LAB_1 Performing Organization Address City/State/ZIP Code Phon e Number [facility] [phone] (ABNORMAL) Basic Metabolic Panel (04/21/2018 2:58 PM CDT) [facility] Method Time Signature Sodium 140 136 [...] 7:52 PM C DT Performed at [address] ??[address] Wyatt Oneil MD LAB_1 Performing Organization Address City/State/ZIP Code Phon e Number [facility] [phone] (ABNORMAL) Complete Blood Count-W/Diff (04/21/2018 2:58 PM CDT) [facility] Method Time Signature WBC 5.1 4.0 [...] [facility] Lymph 28 % [facility] [place] 15 % [facility] Eos 2 % [facility] Baso 1 % [facility] Neutrophil 2.7 1.8 - 7.7 [facility] Lymph Absolute 1.4 1.0 - 4.8 [facility] [place] Absolute 0.8 (H) 0.1 - 0.7 [facility] [...] 04/21/2018 7:32 PM C DT Performed at [facility], [address] [place] [id number] Wyatt Oneil MD LAB_1 Performing Organization Address City/State/ZIP Code Phon e Number [facility] [phone] documented in this encounter Visit Diagnoses Diagnosis Hodgkin lymphoma, unspecified, lymph nod es of axilla and upper limb (HRC) documented in this encounter
--- OUTSIDE RECORDS SUMMARY | 2022-06-04 15:44 | XMS_ITS | Encounter Summary ---
:1995 Author Organization [facility] Address [address] [place] [address] Care Team Providers Name Role Phone Unavailable Primary Care Provider Unavailable Reason for Visit Reason Comments Symptoms Encounter Details Date Type Department Care Team Description 08/15/2018 [facility] Matthew Chau MD Symptoms Center Neurosurgery/Ortho [address] [place] [place] [address] 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.Beulah Morton RN 08/25/2018, 11:29 AM ICE PORTER Beulah Morton RN - 08/15/2018 4:22 PM CST [facility].Beulah Morton RN 08/15/2018, 4:22 PM ICE PORTER Billy Thomas - 08/15/2018 8:35 AM CST [...] be advised. Billy Thomas 08/15/2018, 8:40 AM ICE PORTER documented in this encounter Plan of Treatment Upcoming Encounters Date Type Specialty Care Team Description 06/12/2022 Appointment Urology Raj Castro MD [address] [place], [place] [address] (Wo rk) 09/28/2022 Telemedicine Psychiatry Humera Bush MD [address] [place] [address] (Wo rk) documented as of this encounter Visit Diagnoses Not on filedocumented in this encounter
--- OUTSIDE RECORDS SUMMARY | 2022-06-04 15:44 | XMS_ITS | Encounter Summary ---
:1995 Author Organization [employer] Address [address] [place] [address] Care Team Providers Name Role Phone Unavailable Primary Care Provider Unavailable Reason for Visit Procedure/Equipment (Routine) - Closed Specialty Diagnoses / Procedures Referred By Contact Refer red To Contact Diagnoses Hodgkin lymphoma, unspecified, lymph nodes of axilla and upper limb (HRC) Wyatt Oneil MD [address] [place] [address] Referral ID Status Reason Start Date Expiration Date Visits Requ ested Visits Authorized [id number] Closed 04/21/2018 2019 1 1 Encounter Details Date Type Department Care Team Description 09/05/2018 Office Visit [facility] [address] [facility] [facility] lymphoma, Pulmonary Lab unspecified, lymph nodes [address] 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
--- OUTSIDE RECORDS SUMMARY | 2022-06-04 15:44 | XMS_ITS | Encounter Summary ---
:1995 Author Organization [employer] Address [address] [place] [address] Care Team Providers Name Role Phone No Primary/Referring, Phy Primary Care Provider Unavailable Reason for Visit Consult/Transfer Care (Routine) - Closed Specialty Diagnoses / Procedures Referred By Contact Refer red To Contact Ophthalmology Diagnoses Spina bifida, unspecified hydrocephalus presence, unspecified spinal region (HRC) Gait abnormality Neurogenic bowel Neurogenic bladder Rob Tillman MD Bl [facility]hthal[facility] [address] [facility] [address] [place] [address] [place] [address] Fax: Referral ID Status Reason Start Date Expiration Date Visits Requ ested Visits Authorized [id number] Closed 03/28/2018 06/27/2019 1 1 Encounter Details Date Type Department Care Team Description 09/23/2018 Office Visit Lindsay Stephen, Monocular e xotropia OS, s/p strabismus surgery x 2 (Primary Dx); Ophthalmology Myopia of both eyes with reg ular astigmatism [address] [place], [place] [address] Social History Tobacco Use Types Packs/Day Years Used Date Smoking Tobacco: Never Smokeless Tobacco: Never Alcohol Use Standard Drinks/Week Comments Yes 0 (1 standard drink = 0.6 oz pure alcoho l) occasional Sex Assigned at Date Recorded 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 Monocular exotropia OS, s/p strabismus surgery x 2 Stable No diplopia ??? Myopia of both eyes with regular astigmatism Glasses prescription given Return in 1 year for a dilated exam with Call if increased redness, pain or decreased vision - [phone] or [phone] after hours documented in this encounter Progress Notes Lindsay Marcus MD - 09/23/2018 8:00 AM CDT New patient to provider Fly Moran is a 23 y.o. old male here for: Routine Eye Exam and to established care. Overall vision is not good enough to drive at night, but confident with vision. States currently good distanceand near vision with current glasses. Best corrected visual acuity was 20/40 per pt, unsure if OU. De nies discomfort/eye pain OU. Denies any ocular concerns today. Sometimes OS turns off for some reason- up into the left- states he is able to fuse again with focusing. H/o 2 strabismus surgeries OU (05/09/2006)- Consecutive exotropia surgery: medial rectus advancementOU It was overcorrected so they had to go back in the second time. Denies any other ocular surgeries or diseases. Glaucoma Medications: none Other Eye Medications: none Review of Systems Const: (-) ENT: (-) Pulm: (-) Cardio: (-) GI: (-) : (-) MS: (-) Skin: (-) Neuro: (-) Heme: (-) This note has been scribed by Hope FERRO and reviewed by Lindsay Marcus MD Assessment and Plan: Encounter Diagnoses Name Primary? Monocular exotropia OS, s/p strabismus surgery x 2 Stable No diplopia ??? Myopia of both eyes with regular astigmatism Glasses prescription given Return in 1 year for a dilated exam with Call if increased redness, pain or decreased vision - [phone] or [phone] after hours documented in this encounter Plan of Treatment Upcoming Encounters Date Type Specialty Care Team Description 06/12/2022 Appointment Urology Raj Castro MD [address] [place], [place] [address] (Wo rk) 09/28/2022 Telemedicine Psychiatry Humera Bush MD [address] [place], [place] [address] (Wo rk) documented as of this encounter Visit Diagnoses Diagnosis Monocular exotropia OS, s/p strabismus s urgery x 2 - Primary Monocular exotropia Myopia of both eyes with regular astigma tism documented in this encounter Care Teams Commercial Lending Relationship Manager Relationship Specialty Start Date End Date No Primary/Referring, Phy PCP - General 09/23/18 documented as of this encounter
--- OUTSIDE RECORDS SUMMARY | 2022-06-04 15:44 | XMS_ITS | Encounter Summary ---
:1995 Author Organization [employer] Address [address] [place] [address] Care Team Providers Name Role Phone No Primary/Referring, Phy Primary Care Provider Unavailable Reason for Visit Reason Comments Other Encounter Details Date Type Department Care Team Description 09/23/2018 Telephone [facility] Lindsay Shannon MD Other [address] 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 After looked at his old records: suggested an cartographic drafter visit for computer glasses and recheck prisms KASIE Vieira 09/23/2018, 3:52 PM Informed pt. Will have CA call pt to schedule documented in this encounter Plan of Treatment Upcoming Encounters Date Type Specialty Care Team Description 06/12/2022 Appointment Urology Raj Castro MD [address] [place], [place] [address] (Wo rk) 09/28/2022 Telemedicine Psychiatry Humera Bush MD [address] [place], [place] [address] (Wo rk) documented as of this encounter Visit Diagnoses Not on filedocumented in this encounter Care Teams [employer] Caretaker Relationship Specialty Start Date End Date No Primary/Referring, Phy PCP - General 09/23/18 documented as of this encounter
--- OUTSIDE RECORDS SUMMARY | 2022-06-04 15:44 | XMS_ITS | Encounter Summary ---
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 documented as of this encounter Plan of Treatment Upcoming Encounters Date Type Specialty Care Team Description 06/12/2022 Appointment Urology Raj Castro MD [address] [place], [place] [address] (Wo rk) 09/28/2022 Telemedicine Psychiatry Humera Bush MD [address] [place], [place] [address] (Wo rk) documented as of this encounter Visit Diagnoses Not on filedocumented in this encounter Care Teams Emergency Telecommunications Dispatcher Relationship Specialty Start Date End Date Rob Tillman MD PCP - General Physical Medicine and 08/01/19 [address] [facility] [place] [address] documented as of this encounter
--- OUTSIDE RECORDS SUMMARY | 2022-06-04 15:44 | XMS_ITS | Encounter Summary ---
:1995 Author Organization [facility] Address [address] [place] [address] Care Team Providers Name Role Phone Unavailable Primary Care Provider Unavailable Reason for Visit Reason Comments Consult, New Patient Consult/Transfer Care (Routine) - Closed Specialty Diagnoses / Procedures Referred By Contact Refer red To Contact Neurosurgery Diagnoses Spina bifida, unspecified hydrocephalus presence, unspecified spinal region (HRC) Gait abnormality Neurogenic bowel Neurogenic bladder Rob Tillman MD [facility] Neurosurgery/Ortho [address] [place] [place] [address] [place] [address] Phone: Fax: Referral ID Status Reason Start Date Expiration Date Visits Requ ested Visits Authorized [id number] Closed 03/28/2018 06/27/2019 1 1 Encounter Details Date Type Department Care Team Description 05/13/2018 Office Visit [facility] Ronnell Ely M D Hydrocephalus Neuroscience Center [address] [facility] (P rimary Dx) Neurosurgery/Ortho S Spine [facility] [address] 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 documented as of this encounter Last Filed Vital Signs Vital Sign Reading Time Taken Comments Blood Pressure 139/80 05/13/2018 12:03 PM SLD EDUCATIONAL AIDE Pulse 89 05/13/2018 12:03 PM SLD EDUCATIONAL AIDE Temperature 37.1 ??C (98.7 ??F) 05/13/2018 12:03 PM SLD EDUCATIONAL AIDE Respiratory Rate - - Oxygen Saturation - - Inhaled Oxygen Concentration - - Weight 56.7 kg (125 lb) 05/13/2018 12:03 PM SLD EDUCATIONAL AIDE Height 154.9 cm (5' 1) 05/13/2018 12:03 PM SLD EDUCATIONAL AIDE Body Mass Index 23.62 05/13/2018 12:03 PM SLD EDUCATIONAL AIDE documented in this encounter Patient Instructions Patient [...] your understanding. Please call the Neurosurgery Center [phone] with any further questions or concerns. Thank you for coming to see us today. We are your partner. EDUCATIONAL AIDE documented in this encounter Progress Notes Ronnell [...] I reviewed the records provided by the [facility]. Of note, Mr. Moran has discontinuity of [...] request any available brain imaging from the [facility] team. I do not think Mr. Moran [...] care. Ronnell Ely MD 05/13/2018, 5:52 PM EDUCATIONAL AIDE documented in this encounter Plan of Treatment Upcoming Encounters Date Type Specialty Care Team Description 06/12/2022 Appointment Urology Raj Castro MD [address] [place], [place] [address] (Wo rk) 09/28/2022 Telemedicine Psychiatry Humera Bush MD [address] [place], [place] [address] (Wo rk) documented as of this encounter Visit Diagnoses Diagnosis Hydrocephalus (HRC) - Primary Obstructive hydrocephalus documented in this encounter
--- OUTSIDE RECORDS SUMMARY | 2022-06-04 15:44 | XMS_ITS | Encounter Summary ---
:1995 Author Organization [facility] Address [address] [place] [address] Care Team Providers Name Role Phone Unavailable Primary Care Provider Unavailable Reason for Referral Procedure/Equipment (Routine) - Incomplete Specialty Diagnoses / Procedures Referred By Contact Refer red To Contact Diagnoses Spina bifida, unspecified hydrocephalus presence, unspecified spinal region (HRC) Matthew Hansen MD Procedures XR Scoliosis 2 Views [address] [place] [address] Referral ID Status Reason Start Date Expiration Date Visits V isits Requested Authorized [id number] Incomplete 06/30/2018 09/29/2019 1 1 ERCIAL ESCROW OFFICER Reason for Visit Reason Comments SECOND OPINION Encounter Details Date Type Department Care Team Description 06/30/2018 Office Visit [facility] Scoliosis of t horacic spine, unspecified scoliosis type (Primary Dx); Neuroscience Center Alen Castro Spina bifida, unspecified hydrocephalus presence, unspecified spinal region (HRC) Neurosurgery/Ortho [address] Spine [place], [place] [address] 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 documented as of this encounter Last Filed Vital Signs Vital Sign Reading Time Taken Comments Blood Pressure 149/88 06/30/2018 1:23 PM COMMERCIAL ESCROW OFFICER Pulse 93 06/30/2018 1:23 PM COMMERCIAL ESCROW OFFICER Temperature 35.8 ??C (96.4 ??F) 06/30/2018 1:23 PM COMMERCIAL ESCROW OFFICER Respiratory Rate - - Oxygen Saturation - - Inhaled Oxygen Concentration - - Weight 54.4 kg (120 lb) 06/30/2018 1:23 PM COMMERCIAL ESCROW OFFICER Height 154.9 cm (5' 1) 06/30/2018 1:23 PM COMMERCIAL ESCROW OFFICER Body Mass Index 22.67 06/30/2018 1:23 PM COMMERCIAL ESCROW OFFICER documented in this encounter Patient Instructions Patient [...] understanding. Please call the Neuroscience Center at [phone] with any further questions or concerns. ERCIAL ESCROW OFFICER documented in this encounter Progress Notes Sadie Londono PA-C - 06/30/2018 1:00 PM CST Neurosurgery Clinical Consultation Primary Care Physician: Referring Physician: Dr. Ely Chief Complaint: scoliosis HPI: Fly is a pleasant 22 y.o. old male with a PMH of Hodgkin's lymphoma s/p chemo/rad, spina bifida and myelomeningocele s/p thoracolumbar fusion at [facility], s/p chiari decompression, hydrocephaluss/p shunt but not [...] that were not noticed on first review ERCIAL ESCROW OFFICER documented in this encounter Nursing Notes Gabrielle Lemus RN - 06/30/2018 1:00 PM CST Per [facility]il Hansen, order placed for AP/lat scoliosis xrays prior to visit Gabrielle Lemus RN 06/30/2018, 11:18 AM ERCIAL ESCROW OFFICER documented in this encounter Plan of Treatment Upcoming Encounters Date Type Specialty Care Team Description 06/12/2022 Appointment Urology Raj Castro MD [address] [place], [place] [address] (Wo rk) 09/28/2022 Telemedicine Psychiatry Humera Bush MD [address] [place], [place] [address] (Wo rk) documented as of this encounter Results XR Scoliosis 2 Views (06/30/2018 1:19 PM COMMERCIAL ESCROW OFFICER) Anatomical Region Laterality Modality Spine, C-Spine, T-Spine, L-Spine Compute d Radiography Specimen (Source) Anatomical Collection Method Collection Time Re ceived Time Location / / Volume Laterality 06/30/2018 1:19 PM COMMERCIAL ESCROW OFFICER Narrative 06/30/2018 2:47 PM COMMERCIAL ESCROW OFFICER NEUROSCIENCE CENTER XR SCOLIOSIS 2 VIEWS 06/30/2018 [...] note might be different from the original. [facility] C[facility] XR SCOLIOSIS 2 VIEWS [...]
--- OUTSIDE RECORDS SUMMARY | 2022-06-04 15:44 | XMS_ITS | Encounter Summary ---
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
--- OUTSIDE RECORDS SUMMARY | 2022-06-04 15:44 | XMS_ITS | Encounter Summary ---
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 [place] [address] documented as of this encounter
--- OUTSIDE RECORDS SUMMARY | 2022-06-04 15:44 | XMS_ITS | Encounter Summary ---
:1995 Author Organization [facility] Address [address] [place] [address] Care Team Providers Name Role Phone Unavailable Primary Care Provider Unavailable Reason for Visit Procedure/Equipment (Routine) - Incomplete Specialty Diagnoses / Procedures Referred By Contact Refer red To Contact Procedures Provider, Foreign Images Foreign Image(S) MR Head [address] [place] [address] Referral ID Status Reason Start Date Expiration Date Visits V isits Requested Authorized [id number] Incomplete 08/18/2019 11/16/2020 1 1 Encounter Details Date Type Department Care Team Description 05/10/2014 Ancillary Procedure [facility] Radiology PACS Provider, [address] [address] [address] [place] [address] Social History Tobacco Use Types Packs/Day Years Used Date Smoking Tobacco: Never Assessed Sex Assigned at Date Recorded 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 documented in this encounter Results Foreign Image(S) MR Head (05/10/2014 12:00 AM OCCUPATIONAL MEDICINE OFFICER) Specimen (Source) Anatomical Location Collection Method / [...]
--- OUTSIDE RECORDS SUMMARY | 2022-06-04 15:44 | XMS_ITS | Encounter Summary ---
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
--- OUTSIDE RECORDS SUMMARY | 2022-06-04 15:44 | XMS_ITS | Encounter Summary ---
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
--- OUTSIDE RECORDS SUMMARY | 2022-06-04 15:44 | XMS_ITS | Encounter Summary ---
:1995 Author Organization [employer] Address [address] [place] [address] Care Team Providers Name Role Phone Unavailable Primary Care Provider Unavailable Reason for Referral Procedure/Equipment (Routine) - Closed Specialty Diagnoses / Procedures Referred By Contact Refer red To Contact Diagnoses Hodgkin lymphoma, unspecified, lymph nodes of axilla and upper limb (HRC) Wyatt Oneil MD [address] [place] [phone] Referral ID Status Reason Start Date Expiration Date Visits Requ ested Visits Authorized [id number] Closed 04/21/2018 2019 1 1 Scheduling Instructions Your provider has recommended an appoint ment with [facility]. You may call [phone] t o schedule your appointment. If you prefer, a black top roller will contact you within the ne xt [...] and upper limb (HRC) Wyatt Oneil MD [address] [place] [phone] Referral ID Status Reason Start Date Expiration Date Visits Requ ested Visits Authorized [id number] Closed 04/21/2018 2019 1 1 Scheduling Instructions Your provider has recommended an appoint ment with [facility]. You may call [phone] to carla edule your appointment. If you prefer, a black top roller will contact you within the ne xt 3 business days to assist you in setting up this appointment. We suggest you call your [employer] insurance company about your coverage and benefits for this appointme nt. Procedure/Equipment (Routine) - Closed Specialty Diagnoses / Procedures Referred By Contact Refer red To Contact Diagnoses Hodgkin lymphoma, unspecified, lymph nodes of axilla and upper limb (HRC) Wyatt Oneil MD [address] [place] [address] Referral ID Status Reason Start Date Expiration Date Visits Requ ested Visits Authorized [id number] Closed 04/21/2018 2019 1 1 Scheduling Instructions Your provider has recommended an appoint ment with [facility]. You may call [phone] to schedule your appoi ntment. If you prefer, a black top roller will contact you within the next 3 business d ays to assist you in setting up this appointment. We suggest you call your [facility] insurance [employer] about your coverage and benefits for this appointment. Reason for Visit Consult/Transfer Care (Routine) - Closed Specialty Diagnoses / Procedures Referred By Contact Refer red To Contact Hematology and Diagnoses Spina bifida, unspecified hydrocephalus presence, unspecified spinal region (HRC) Gait abnormality Neurogenic bowel Neurogenic bladder Rob Tillman, [place] Oncology Oncology [address] [facility]. [address] [place] [phone] Fax: Referral ID Status Reason Start Date Expiration Date Visits Requ ested Visits Authorized [id number] Closed 03/28/2018 06/27/2019 1 1 Encounter Details Date Type Department Care Team Description 04/21/2018 Office Visit [facility] Oneil, Schneider Hodgkin lymphoma, unspecifie d, lymph nodes of axilla and upper limb (HRC) (Primary Dx); [address] Brina MD Spina bifida, unspecified hydrocephalus presence, unspecified spinal region (HRC) S. 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 Mild neutropenia persisting on lab testing [place] Jun 2017 TREATMENT 4 months of ABVe-PC [...] CDT This office note has been dictated. [id number] Wyatt Oneil MD Wyatt Oneil MD - 04/21/2018 12:00 AM CDT FLY MARTINEZ CSN: [id number] CLINIC NOTE DATE OF SERVICE: 04/21/2018 : 1995 I was asked to see this patient by Dr. Tillman for long-term followup of previously treated stage IIA classic Hodgkin lymphoma. HISTORY OF PRESENT ILLNESS: This is a 22-year-old single white male with spina bifida, cerebral palsy, and Arnold-Chiari malformation, who is living with his family in [place], who is here today with his mother for long-term followup of Hodgkin lymphoma. Five years ago in February 2013, he was found to have a 6 cm mediastinal mass serendipitously identified on thoracic spine films for scoliosis. He was evaluated and treated at the [facility], and was found to have stage IIA [...] well. He was last seen at the [facility] in June 2017. 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 PAST MEDICAL HISTORY: 1. Significant for spina bifida and Arnold-Chiari malformation with cerebral palsy. 2. History of depression and anxiety with attention deficit disorder. 3. History of significant cellulitis of the left leg, 2015. 4. Chronic mild neutropenia following treatment for his lymphoma. 5. Neurogenic bladder. SOCIAL HISTORY: He is single, lives with his parents in [place]. HABITS: He does not smoke and rarely [...] Oncology in 1 year. WYATT ONEIL MD [facility]/JALIL /[id number] documented in this encounter Plan of Treatment Upcoming Encounters Date Type Specialty Care Team Description 06/12/2022 Appointment Urology Raj Castro MD [address] [place] [address] (Jeannie osei) 09/28/2022 Telemedicine Psychiatry Humera Bush MD [address] [place], [place] [address] (Wo rk) Scheduled Referrals [...] 04/21/2018 7:56 PM C DT Performed at [facility], [address] [place] [phone] Wyatt Oneil MD LAB_1 Performing Organization Address City/State/ZIP Code Phon e Number [facility] [phone] Liver Panel(Hepatic Function Panel) (04/21/2018 2:58 PM [...] 04/21/2018 7:52 PM C DT Performed at [address] ??[id number] Wyatt Oneil MD LAB_1 Performing Organization Address [facility] Phon e Number [facility] [phone] (ABNORMAL) Basic Metabolic Panel (04/21/2018 2:58 PM CDT) [facility] [employer] Method Time Signature Sodium 140 136 - [...] 04/21/2018 7:52 PM C DT Performed at [facility], [address] [place] [address] ??[phone] Wyatt Oneil MD LAB_1 Performing Organization Address [facility] Phon e Number [facility] [phone] (ABNORMAL) Complete Blood Count-W/Diff (04/21/2018 2:58 PM CDT) [facility] [employer] Method Time Signature WBC 5.1 4.0 - [...] [facility] Lymph 28 % [facility] [place] 15 % [facility] Eos 2 % [facility] Baso 1 % [facility] Neutrophil 2.7 1.8 - 7.7 [facility]ul [facility] Lymph Absolute 1.4 1.0 - 4.8 [facility] [place] Absolute 0.8 (H) 0.1 - 0.7 [facility] [...] 04/21/2018 7:32 PM C DT Performed at [facility], [address] [place] [address] ??[phone] Wyatt Oneil MD LAB_1 Performing Organization Address City/State/ZIP Code Phon e Number [facility] [phone] documented in this encounter Visit Diagnoses Diagnosis Hodgkin lymphoma, unspecified, lymph nod es of axilla and upper limb (HRC) - Primary Spina bifida, unspecified hydrocephalus presence, unspecified spinal region (HRC) Hodgkin lymphoma, unspecified, lymph nod es of axilla and upper limb (HRC) documented in this encounter
--- OUTSIDE RECORDS SUMMARY | 2022-06-04 15:44 | XMS_ITS | Encounter Summary ---
:1995 Author Organization [employer] Address [address] [place] [address] Care Team Providers Name Role Phone Unavailable Primary Care Provider Unavailable Reason for Visit Procedure/Equipment (Routine) - Closed Specialty Diagnoses / Procedures Referred By Contact Refer red To Contact Diagnoses Hodgkin lymphoma, unspecified, lymph nodes of axilla and upper limb (HRC) Wyatt Oneil MD [address] [place] [phone] Referral ID Status Reason Start Date Expiration Date Visits Requ ested Visits Authorized [id number] Closed 04/21/2018 2019 1 1 Encounter Details Date Type Department Care Team Description 08/29/2018 Notes/Orders [place] Echocardio grams Encounter for follow-up [address] 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 documented as of this encounter Progress Notes Wyatt Oneil MD - 08/29/2018 10:00 AM CST Call with nml echo results Wyatt Oneil MD ER BANANA ROOM documented in this encounter Plan of Treatment Upcoming Encounters Date Type Specialty Care Team Description 06/12/2022 Appointment Urology Raj Castro MD [address] [place], [place] [address] (Wo rk) 09/28/2022 Telemedicine Psychiatry Humera Bush MD [address] [place], [place] [address] (Wo rk) documented as of this encounter Procedures Procedure Name Priority Date/Time Associated Comments Diagnosis EJECTION FRACTION Routine 08/29/2018 9:53 Results for this AM [facility] ROOM procedure are i n the results section. CARDIAC ROUTINE Routine 08/29/2018 9:53 Encounter for Results for this ECHOCARDIOGRAM AM [facility] ROOM follow-up procedure are in examination after the result s completed treatment section. for malignant neoplasm documented in this encounter Results EJECTION FRACTION (08/29/2018 9:53 AM [facility] ROOM) P athologist Signature EF 55 % PROSOLV EF test type ECHO PROSOLV Specimen (Source) Anatomical Collection Method Collection Time Re ceived Time Location / / Volume Laterality 08/29/2018 9:53 AM [facility] ROOM Wyatt Oneil MD [facility] MANAGER SAFE/RH Performing Organization Address City/State/ZIP Code Phon e Number [facility] [address] [place] [address] CARDIAC ROUTINE ECHOCARDIOGRAM (08/29/2018 9:53 AM [facility] ROOM) Specimen (Source) Anatomical Collection Method Collection Time Re ceived Time Location / / Volume Laterality 08/29/2018 9:53 AM [facility] RO[facility] Narrative PROS[facility] - 08/29/2018 5:10 PM [facility] ROOM Contrast: ?Contrast Allergy: Clinical Indications:Chemo follow up [...] Phon e Number PROS[facility] [address] [place] [address] documented in this encounter Visit Diagnoses Diagnosis Encounter for follow-up examination afte r completed treatment for malignant neoplasm (HRC) - Primary Unspecified follow-up examination documented in this encounter
--- OUTSIDE RECORDS SUMMARY | 2022-06-04 15:44 | XMS_ITS | Encounter Summary ---
:1995 Author Organization [employer] Address [address] [place] [address] Care Team Providers Name Role Phone Unavailable [...] Urology [address] [place] [address] [place] [address] Fax: Referral ID Status Reason Start Date Expiration Date Visits Requ ested Visits Authorized [id number] Closed 03/28/2018 06/27/2019 1 1 Encounter Details Date Type Department Care Team Description 09/06/2018 Office Visit Specialty Center Raj Castro, Allyson rogenic bladder [address] [facility] (Primary Dx) 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 For Xray, CT test, and [...] you! Get Cost of Care Estimates - [phone] The health insurance marketplace has changed dramatically in the last few years. Our cost of care service will provide estimates over the phone for treatments or procedures billed through [facility]. To receive a cost estimate, simply call [phone] during regular business hours. If you have [...] Review of recent renal ultrasound from the [facility] reveals no evidence of hydronephrosis. Patient did [...] software. Please excuse any typographical errors in cryptographer Subjective CC/HPI: Fly Moran is a 23 [...] condition: Underwent prior urodynamic testing at the [facility] Fly notes the following pertinent urologic history: Prior [...] have been reviewed and are current in [facility]. Objective BP (!) 146/85 Pulse (!) 120 [...] Value 04/21/2018 0.93 Imaging: US Retroperitoneum Kidney Jpiqawyre38/7/2018 [facility] Result Impression IMPRESSION: No significant change compared [...] Description 06/12/2022 Appointment Urology Raj Castro MD [address] [place] [phone] (Wo rk) 09/28/2022 Telemedicine Psychiatry Humera Bush MD [address] [place], [place] [address] (Wo rk) Scheduled Referrals Name Type Priority Associated Diagnoses Order S chedule Urology Referral Routine Spina bifida, unspecified Or dered: 03/28/2018 Consult-Adults hydrocephalus presence, unspecified spinal region (HRC) Gait abnormality Neurogenic bowel Neurogenic bladder documented as of this encounter Visit Diagnoses Diagnosis Neurogenic bladder - Primary Neurogenic bladder, NOS documented in this encounter
--- OUTSIDE RECORDS SUMMARY | 2022-06-04 15:44 | XMS_ITS | Encounter Summary ---
:1995 Author Organization [facility] Address [address] [place] [address] Care Team Providers Name Role Phone Unavailable Primary Care Provider Unavailable Reason for Referral Consult/Transfer Care (Routine) - Closed Specialty Diagnoses / Procedures Referred By Contact Refer red To Contact Ophthalmology Diagnoses Spina bifida, unspecified hydrocephalus presence, unspecified spinal region (HRC) Gait abnormality Neurogenic bowel Neurogenic bladder Rob Tillman MD Ophthalmology [address] [facility] [address] [place] [address] [place] [address] Fax: Referral ID Status Reason Start Date Expiration Date Visits Requ ested Visits Authorized [id number] Closed 03/28/2018 06/27/2019 1 1 Scheduling Instructions Your provider has recommended an appoint ment with [facility]. You may call [phone] to schedule your a ppointment. If you prefer, a brothel keeper will contact you within the next 3 business d ays to assist you in setting up this appointment. We suggest you call your [employer] insurance company about your coverage and benefits for this appointment. Consult/Transfer Care (Routine) - Closed Specialty Diagnoses / Procedures Referred By Contact Refer red To Contact Hematology and Diagnoses Spina bifida, unspecified hydrocephalus presence, unspecified spinal region (HRC) Gait abnormality Neurogenic bowel Neurogenic bladder Rob Tillman, [place] Oncology Oncology [address] [facility]. [address] [place] [phone] Fax: Referral ID Status Reason Start Date Expiration Date Visits Requ ested Visits Authorized [id number] Closed 03/28/2018 06/27/2019 1 1 Scheduling Instructions Your provider has [facility]. You may call [phone] to schedule your appointment. If you prefer, a brothel keeper will contact you within the ne xt [...] Neurogenic bowel Neurogenic bladder Rob Tillman MD [facility] Neurosurgery/Ortho [address] [place] [place] [address] [place] [address] Phone: Fax: Referral ID Status Reason Start Date Expiration Date Visits Requ ested Visits Authorized [id number] Closed 03/28/2018 06/27/2019 1 1 Scheduling Instructions Your provider has recommended an appoint ment [facility]. You may call [phone], option 2 for ques tions or to schedule your appointment. If you prefer, a brothel keeper will contact you [facility] the next 3 business days to [...] Help you care for your back. The automated logistics specialist will help create a treatment plan [...] Urology [address] [place] [address] [place] [address] Fax: Referral ID Status Reason Start Date Expiration Date Visits Requ ested Visits Authorized [id number] Closed 03/28/2018 06/27/2019 1 1 Scheduling Instructions Your provider has recommended an appoint ment [facility]. You may call [phone] to schedule your appoi ntment. If you prefer, a brothel keeper will contact you within the next 3 business d ays to assist you in setting up this appointment. We suggest you call your [employer] insurance company about your coverage and benefits for this appointment. Reason for Visit Reason Comments Consult, New Patient Encounter Details Date Type Department Care Team Description 03/28/2018 Office Visit Rob Bagley Spina bifi da, unspecified hydrocephalus presence, unspecified spinal region (HRC) (Primary Dx); [facility] MD Sophie Gait abnormality; Physical Medicine [address] Neurogenic bowel; [address] 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 [...] 124/79 Pulse: 81 General: NAD, pleasant, in [facility], able to self transfer Mental status: displays [...] spina bifida, here to establish care at [facility]. Plan: 1. Patient education: I went over [...] Urology Raj Castro MD [address] [place], [place] [address] (Wo rk) 09/28/2022 Telemedicine Psychiatry Humera Bush MD [address] [place], [place] [address] (Wo rk) Scheduled Referrals [...]
--- OUTSIDE RECORDS SUMMARY | 2022-06-04 15:44 | XMS_ITS | Encounter Summary ---
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 documented in this encounter Results CARDIAC ECHO (01/14/2017 12:00 AM CDT) Specimen (Source) Anatomical Location Collection Method / Collectio n Time Received Time / Laterality Volume 01/14/2017 Narrative This result has an attachment that is no t available. Phy No Primary/Referring DUMMY/OTHER/AR documented in this encounter Visit Diagnoses Not on filedocumented in this encounter
--- OUTSIDE RECORDS SUMMARY | 2022-06-04 15:44 | XMS_ITS | Encounter Summary ---
:1995 Author Organization [facility] Address [address], [place] [address] Care Team Providers Name Role Phone Unavailable Primary Care Provider Unavailable Reason for Visit Procedure/Equipment (Routine) - Incomplete Specialty Diagnoses / Procedures Referred By Contact Refer red To Contact Procedures Provider, Foreign Images Foreign Image(S) MR Head [address] [place] [address] Referral ID Status Reason Start Date Expiration Date Visits V isits Requested Authorized [id number] Incomplete 08/18/2019 11/16/2020 1 1 Encounter Details Date Type Department Care Team Description 01/04/2014 Ancillary Procedure [facility] Radiology PACS Provider, [address] [address] [address] [place] [address] Social History Tobacco Use Types Packs/Day Years Used Date Smoking Tobacco: Never Assessed Sex Assigned at Date Recorded 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
--- OUTSIDE RECORDS SUMMARY | 2022-06-04 15:44 | XMS_ITS | Encounter Summary ---
:1995 Author Organization [facility] Address [address] [place] [address] Care Team Providers Name Role Phone No Primary/Referring, Phy Primary Care Provider Unavailable Encounter Details Date Type Department Care Team Description 10/20/2018 Office Visit Mily Foster C O Monocular exotropia OS, s/p strabismus s urgery x 2 (Primary Dx); Ophthalmology [address] DVD (dissociated vertical deviation); [address] 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 We have added some horizontal prism to your specs to help you with control. Continue glasses multimedia educational specialist. Return to clinic in as needed with me. Return with Dr. Marcus as instructed. If anything changes, please do not hesitate to give us a call back at : BL: [phone], option 4. Thank you for choosing [facility] [...] both eyes with regular astigmatism Glasses multimedia educational specialist. Both distance and computer glasses updated today. 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
--- OUTSIDE RECORDS SUMMARY | 2022-06-04 15:44 | XMS_ITS | Encounter Summary ---
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 Provider [facility] EEG/RH documented in this encounter Visit Diagnoses Not on filedocumented in this encounter
--- OUTSIDE RECORDS SUMMARY | 2022-06-04 15:44 | XMS_ITS | Encounter Summary ---
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 documented as of this encounter Plan of Treatment Upcoming Encounters Date Type Specialty Care Team Description 06/12/2022 Appointment Urology Raj Castro MD [address] [place], [place] [address] (Wo rk) 09/28/2022 Telemedicine Psychiatry Humera Bush MD [address] [place], [place] [address] (Wo rk) documented as of this encounter Visit Diagnoses Not on filedocumented in this encounter Care Teams Piling Cutter Relationship Specialty Start Date End Date Rob Tillman MD PCP - General Physical Medicine and 08/01/19 [address] [facility] [place] [address] documented as of this encounter
--- OUTSIDE RECORDS SUMMARY | 2022-06-04 15:44 | XMS_ITS | Encounter Summary ---
:1995 Author Organization [facility] Address [address] [place] [address] Care Team Providers Name Role Phone No Primary/Referring, Phy Primary Care Provider Unavailable Reason for Referral Consult/Transfer Care (Routine) - Closed Specialty Diagnoses / Procedures Referred By Contact Refer red To Contact Diagnoses Folliculitis Rob Tillman MD [address] [place] [address] Referral ID Status Reason Start Date Expiration Date Visits Requ ested Visits Authorized [id number] Closed 09/27/2018 12/27/2019 1 1 Scheduling Instructions Your provider has recommended an appoint ment with [facility]. You may call [phone] to schedule your appoi ntment. If you prefer, a manufacturing scheduler will contact you within the next 3 business d ays to assist you in setting up this appointment. We suggest you call your [employer] insurance company about your coverage and benefits for this appointment. Reason for Visit Reason Comments Revisit Encounter Details Date Type Department Care Team Description 09/27/2018 Office Visit Rob Bagley Spina bifi da without hydrocephalus, unspecified spinal region (HRC) (Primary Dx); [facility] MD Sophie Folliculitis; Physical Medicine [address] Gait abnormality; [address] 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 Plans to [employer] and subsequently [...] formal therapies, working on HEP Equipment: MWC, [employer] crutches ADL's: independent Past Medical History: Spina [...] ? Molds & Smuts Other, see comments Ahmeek mold- Respiratory Distress ??? Other Swelling Spider [...] [facility] Doing [facility]. ?? Plan: 1. Patient [...] 06/12/2022 Appointment Urology Raj Castro MD [address] [place], [place] [address] (Wo rk) 09/28/2022 Telemedicine Psychiatry Humera Bush MD [address] [place], [place] [address] (Wo rk) Scheduled Referrals Name Type Priority Associated Diagnoses Order S chedule Dermatology Referral Routine Folliculitis Ordered: 2018 Consult-Adult/Peds documented as of this encounter Visit Diagnoses Diagnosis Spina bifida without hydrocephalus, unsp ecified spinal region (HRC) - Primary Folliculitis Other specified disease of hair and hair follicles Gait abnormality Abnormality of gait Trigger point documented in this encounter Care Teams Senior Nurse Manager Relationship Specialty Start Date End Date No Primary/Referring, Phy PCP - General 09/23/18 documented as of this encounter
--- OUTSIDE RECORDS SUMMARY | 2022-06-04 15:44 | XMS_ITS | Encounter Summary ---
:1995 Author Organization [facility] Address [address] [place] [address] Care Team Providers Name Role Phone No Primary/Referring, Phy Primary Care Provider Unavailable Reason for Visit Reason Comments Nausea DIARRHEA Encounter Details Date Type Department Care Team Description 03/20/2019 Nurse Triage Careline Unknown, Physician Nausea; DIARRHEA 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 MILD-MODERATE diarrhea (e.g., 1-6 times / day more than normal) Answer Assessment - Initial Assessment Questions 1. DIARRHEA SEVERITY: How bad is the diarrhea? How many extra stools have you had in the past 24 hours than normal? - MILD: Few loose or mushy BMs; increase of 1-3 stools over normal daily number of stools; mild increase in ostomy output. - MODERATE: Increase of 4-6 stools daily over normal; moderate increase in ostomy output. - SEVERE (or Worst Possible): Increase of 7 or more stools daily over normal; moderate increase in ostomy output; incontinence. 2 2. ONSET: When did the diarrhea begin? This AM 3. BM CONSISTENCY: How loose or watery is the diarrhea? Watery/loose 4. VOMITING: Are you also vomiting? If so, ask: How many times in the past 24 hours? no 5. ABDOMINAL PAIN: Are you having any abdominal pain? If yes: What does it feel like? (e.g., crampy, dull, intermittent, constant) no 6. ABDOMINAL PAIN SEVERITY: If present, ask: How bad is the pain? (e.g., Scale 1-10; mild, moderate, or severe) - MILD (1-3): doesn't interfere with normal activities, abdomen soft and not tender to touch - MODERATE (4-7): interferes with normal activities or awakens from sleep, tender to touch - SEVERE (8-10): excruciating pain, doubled over, unable to do any normal activities n/a 7. ORAL INTAKE: If vomiting, Have you been able to drink liquids? How much fluids have you had inthe past 24 hours? Deepthi ail 8. HYDRATION: Any signs of dehydration? (e.g., dry mouth [not just dry lips], too weak to stand, dizziness, new weight loss) When did you last urinate? Last urinated a few minutes ago, small amount of saliva 9. EXPOSURE: Have you traveled to a foreign country recently? Have you been exposed to anyone with diarrhea? Could you have eaten any food that was spoiled? No, no known cause 10. ANTIBIOTIC USE: Are you taking antibiotics now or have you taken antibiotics in the past 2 months? no 11. OTHER SYMPTOMS: Do you have any other symptoms? (e.g., fever, blood in stool) No fever, no blood in stool or black stools Protocols used: [id number] Samreen Nelson RN - 03/20/2019 9:17 AM CDT Verified patient identity using three identifiers: Yes Situation/Background (brief explanation of current symptoms/situation): Pt states that he is having some mild nausea and diarrhea x 0600 Reviewed with patient pertinent medical history(as it related to the call): Yes Reviewed with patient pertinent medications (as they relate to call): Yes Reviewed with patient pertinent allergies (as they relate to call). Kasandra Street - 03/20/2019 8:42 AM CDT Verified patient identity using three identifiers: Yes Caller's relationship to patient: Self At which care system or clinic is the patient normally seen? Other (Clinic Name)unsure Symptoms Describe the reason for call/symptoms (include location and duration if applicable): Pt states he isnauseas and has diarrhea Plan:The current callback time to speak with a nurse is 90 mins. If your symptoms change or worsen, or if you have not received a call back in the stated timeframe, please call us back documented in this encounter Plan of Treatment Upcoming Encounters Date Type Specialty Care Team Description 06/12/2022 Appointment Urology Raj Castro MD [address] [place], [place] [address] (Wo rk) 09/28/2022 Telemedicine Psychiatry Humera Bush MD [address] [place], [place] [address] (Wo rk) documented as of this encounter Visit Diagnoses Not on filedocumented in this encounter Care Teams Humane Agent Relationship Specialty Start Date End Date No Primary/Referring, Phy PCP - General 09/23/18 documented as of this encounter
--- OUTSIDE RECORDS SUMMARY | 2022-06-04 15:44 | XMS_ITS | Encounter Summary ---
:1995 Author Organization [employer] Address [address] [place] [address] Care Team Providers Name Role Phone Unavailable Primary Care Provider Unavailable Reason for Visit Reason Comments Test Results Encounter Details Date Type Department Care Team Description 08/30/2018 Telephone [facility] Wyatt Oneil MD Test Results [address] [facility] . 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 Results discussed, and also plans to bring in documents pertaining to guardianship and verbal release. They are also interested in online services. Annabelle Lake LPN 08/30/2018, 4:10 PM ING ANALYST Annabelle Lake LPN - 08/30/2018 11:15 AM [...] letter. Annabelle Lake LPN 08/30/2018, 11:18 AM ING ANALYST Annabelle Lake LPN - 08/30/2018 11:11 AM CST ----- Message from Wyatt Oneil MD sent at 08/30/2018 9:38 AM BILLING ANALYST ----- Call with nml echo results Wyatt Oneil MD ING ANALYST documented in this encounter Plan of Treatment Upcoming Encounters Date Type Specialty Care Team Description 06/12/2022 Appointment Urology Raj Castro MD [address] [place] [address] (Wo rk) 09/28/2022 Telemedicine Psychiatry Humera Bush MD [address] [place], [place] [address] (Wo rk) documented as of this encounter Visit Diagnoses Not on filedocumented in this encounter
--- NOTE | 2022-06-04 16:00 | CRLHL7_ITS ---
For Patients: As a result of the Century Cures Act, medical imaging exams and procedure reports are released immediately into your electronic medical record. You may view this report before your referring provider. If you have questions, please contact your health care provider. INDICATION: Elevated LFTs TECHNIQUE: Ultrasound abdomen limited. Sonographic images of the right upper quadrant were obtained using moore-scale and color Doppler images. COMPARISON: None FINDINGS: Liver: Normal in size diffuse fatty infiltration areas of focal fatty sparing. No masses. No intrahepatic biliary dilatation. Gallbladder: No stones or sludge. Normal wall thickness. No pericholecystic fluid. Five millimeter gallbladder polyp along the anterior wall. Common bile duct: 3 mm. Pancreas: Normal. Right kidney: 10.7 centimeter. Normal echotexture and cortex. No masses, stones, or hydronephrosis. Vasculature: Proximal abdominal aorta and IVC are normal. IMPRESSION: Diffuse fatty infiltration of liver with areas of focal fatty sparing. 5 millimeter gallbladder polyp along the anterior wall. Dictated by Corey Mena MD @ 06/04/2022 4:39:48 PM (Electronically Signed)
== END 2022-06-04 15:36 | disposition home or self-care (01) ==
LOC: US 15:36
PROVIDERS: PCP Physician Assistant Medical; Visit Provider Physician Assistant Medical
DX: R74.8 Abnormal levels of other serum enzymes (principal); K76.0 Fatty (change of) liver, not elsewhere classified; K82.4 Cholesterolosis of gallbladder
CPT/HCPCS: 76705

== ENCOUNTER 2022-07-27 15:10 | Outpatient (CLI) | payer BC, MEDICARE, MEDICAID, SELFPAY ==
[2022-07-27 22:15] LABS: Alanine Aminotransferase* 42 U/L (4-50); Alkaline Phosphatase* 71 U/L (40-150); Bilirubin Direct* 0.1 mg/dL (0.0-0.5); Bilirubin Total* 0.5 mg/dL (0.1-1.5); Total Protein* 8.3 g/dL (6.0-8.3)
[2022-07-27 23:00] LABS: Aspartate Amino Transferase* 33 U/L (12-35)
== END 2022-07-27 15:11 | disposition home or self-care (01) ==
LOC: LKVREF 15:13
PROVIDERS: PCP Physician Assistant Medical; Visit Provider Physician Assistant Medical
DX: G91.9 Hydrocephalus, unspecified (principal); Q05.9 Spina bifida, unspecified; R74.8 Abnormal levels of other serum enzymes
CPT/HCPCS: 80076

== ENCOUNTER 2022-09-24 16:21 | Outpatient (CLI) | payer BC, MEDICARE, MEDICAID, SELFPAY | END 2022-09-24 16:22 | disposition home or self-care (01) | LOC: LKVREF 16:24 | PROVIDERS: PCP Physician Assistant Medical; Visit Provider Family Medicine | DX: G91.9 Hydrocephalus, unspecified (principal); N31.9 Neuromuscular dysfunction of bladder, unspecified; R06.09 Other forms of dyspnea; R03.0 Elevated blood-pressure reading, without diagnosis of hypertension; R74.8 Abnormal levels of other serum enzymes; R53.83 Other fatigue | CPT/HCPCS: 80053 ==

== ENCOUNTER 2022-10-23 07:24 | Outpatient (CLI) | payer BC, MEDICAID, SELFPAY | END 2022-10-23 07:25 | disposition home or self-care (01) | LOC: RAD 07:25 | PROVIDERS: PCP Physician Assistant Medical; Visit Provider Family Medicine | DX: R06.09 Other forms of dyspnea (principal) | CPT/HCPCS: 93306 ==

== ENCOUNTER 2022-12-09 14:17 | Outpatient (CLI) | payer BC, MEDICARE, MEDICAID, SELFPAY | END 2022-12-09 14:18 | disposition home or self-care (01) | PROVIDERS: PCP Physician Assistant Medical; Visit Provider Physician Assistant Medical | DX: R53.83 Other fatigue (principal); R79.89 Other specified abnormal findings of blood chemistry; F90.9 Attention-deficit hyperactivity disorder, unspecified type; G91.9 Hydrocephalus, unspecified | CPT/HCPCS: 82607; 82728; 84403; 84443 ==

== ENCOUNTER 2023-05-04 12:19 | Outpatient (CLI) | payer BC, MEDICARE, MEDICAID, SELFPAY ==
--- OUTSIDE RECORDS SUMMARY | 2023-05-06 06:41 | XMS_ITS | Continuity of Care Document ---
Author Name Unknown Organization [facility] Address [address] [address] [place] [address] Phone Care Team Providers Care Clinical Administrator Name Role Phone Roni Christensen MD Unavailable Unavailable Allergies, Adverse Reactions, Alerts Substance Reaction Status Criticality adhesive tape Rash Active No Information Procedures Procedure Date New Level 3 Advance Directives Directive Yes / No Effective Date File Name No Information Encounters Encounter Description Practice Location Reason(s) For Visit Diagnoses Date Provider Providers Copied on Encounter New Level 3 [facility], [address] [address], [place], [place], [id number], [place] tel:[phone] [facility] GI Symptoms or Concerns (chief complaint) Neurogenic bowelChronic constipation Fermin Tamayo. [address] [address], [place], [place], [id number], [place]. tel:[phone] Referring Provider: Indio Gutierrez MD T, [address] [place], [address]. tel:[phone] Family History Family Member Type Diagnosis Age At Onset No Information Immunizations Vaccine Date Status Comments SARS-COV-2 (COVID-19) vaccin e, mRNA, spike protein, LNP, preservative free, 30 mcg/0.3mL dose administered Note: [facility] bi-direct ional interface ; Source: Other Registry SARS-COV-2 (COVID-19) vaccin e, mRNA, spike protein, LNP, preservative free, 30 mcg/0.3mL dose administered Note: [facility] bi-direct ional interface ; Source: Other Registry Afluria Qd administered Note: [facility] bi-directional interface ; Source: Other Registry Influenza, injectable, Madin [place] Canine Kidney, preservative free, quadrivalent administered Note: [facility] bi-direct ional interface ; Source: Other Registry Havrix pediatric administered Note: [facility] bi-directional interface ; Source: Other Registry meningococcal oligosaccharid e (groups A, C, Y and W-135) diphtheria toxoid conjugate vaccine (MCV4O) administered Note: [facility] bi-direct ional interface ; Source: Other Registry human papilloma virus vaccin e, quadrivalent administered Note: [facility] bi-direct ional interface ; Source: Other Registry Afluria Qd administered Note: [facility] bi-directional interface ; Source: Other Registry Afluria Qd administered Note: [facility] bi-directional interface ; Source: Other Registry varicella virus vaccine administered Note : [facility] bi-directional interface ; Source: Other Registry Influenza, seasonal, injecta ble, preservative free administered Note: [facility] bi-direct ional interface ; Source: Other Registry Novel [id number], all formulations administered Note: [facility] bi-direct ional interface ; Source: Other Registry measles, mumps and rubella v irus vaccine administered Note: [facility] bi-direct ional interface ; Source: Other Registry diphtheria, tetanus toxoids and acellular pertussis vaccine administered Note: [facility] b i-directional interface ; Source: Other Registry Haemophilus influenzae type b vaccine, conjugate unspecified formulation administered Note: [facility] bi-direct ional interface ; Source: Other Registry varicella virus vaccine administered Note : [facility] bi-directional interface ; Source: Other Registry diphtheria, tetanus toxoids and acellular pertussis vaccine administered Note: [facility] b i-directional interface ; Source: Other Registry measles, mumps and rubella v irus vaccine administered Note: [facility] bi-direct ional interface ; Source: Other Registry hepatitis B vaccine, unspeci fied formulation administered Note: [facility] bi-direct ional interface ; Source: Other Registry Haemophilus influenzae type b vaccine, conjugate unspecified formulation administered Note: [facility] bi-direct ional interface ; Source: Other Registry diphtheria, tetanus toxoids and acellular pertussis vaccine administered Note: [facility] b i-directional interface ; Source: Other Registry hepatitis B vaccine, unspeci fied formulation administered Note: [facility] bi-direct ional interface ; Source: Other Registry Haemophilus influenzae type b vaccine, conjugate unspecified formulation administered Note: [facility] bi-direct ional interface ; Source: Other Registry diphtheria, tetanus toxoids and acellular pertussis vaccine administered Note: [facility] b i-directional interface ; Source: Other Registry hepatitis B vaccine, unspeci fied formulation administered Note: [facility] bi-direct ional interface ; Source: Other Registry Haemophilus influenzae type b vaccine, conjugate unspecified formulation administered Note: [facility] bi-direct ional interface ; Source: Other Registry diphtheria, tetanus toxoids and acellular pertussis vaccine administered Note: [facility] b i-directional interface ; Source: Other Registry Payers Payer name Insurance type Covered alliance party ID Authoriza tion(s) [facility] [id number] [facility] 2021 16 [id number] Social History Type Description Quantity Date Captured Comments Alcohol Use Details No Caffeine Use Details Unknown Tobacco Use Status undefined Smoking Status Never smoker Sex Male Chief Complaint And Reason For Visit From encounter dated '04/26/2023 12:50'. GI Symptoms or Concerns (chief complaint). 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 He has had trouble with constipation since . He reports he has to strain a lot to move his bowels, although he has had problems with constipation. Over the years, he has recognized that taking Metamucil, MiraLax, and various other laxatives tends to help keep his bowels moving. More recently, he has been taking a protein supplement called ViSalus which also has a lot of fiber in it and with that his constipation symptoms have actually improved significantly. As long as he keeps consuming that supplement, he moves his bowels every day. The need to strain has also decreased significantly since he started that protein supplement. He denies any rectal bleeding or unintentional weight loss or abdominal pain or discomfort.He does mention that anytime he has an abdominal x-ray, they always note that his colon has a large amount of stool in it, but he does not have any abdominal pain or discomfort or feeling of fullness related to it. His appetite is good and he is able to function without any issues.He also has a neurogenic bladder and previously used to have to self-catheterize, but currently, he does not need to do this. He has previously also undergone pelvic floor therapy for treatment of neurogenic bladder. He also has issues with recurrent UTIs in the past. 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 He has had trouble with constipation since . He reports he has to strain a lot to move his bowels, although he has had problems with constipation. Over the years, he has recognized that taking Metamucil, MiraLax, and various other laxatives tends to help keep his bowels moving. More recently, he has been taking a protein supplement called ViSalus which also has a lot of fiber in it and with that his constipation symptoms have actually improved significantly. As long as he keeps consuming that supplement, he moves his bowels every day. The need to strain has also decreased significantly since he started that protein supplement. He denies any rectal bleeding or unintentional weight loss or abdominal pain or discomfort.He does mention that anytime he has an abdominal x- Functional Status Date Functional Assessmen t No Information Instructions Date Instruction Rico marsh 1. He will continue protein supplement ViSalus containing fiber which seems to be working quite well for him.2. If that stops working, we could add another form of fiber supplement such as Metamucil or Citrucel or Benefiber.3. If that is ineffective, MiraLax on a daily basis could be tried.4. If all of those strategies are ineffective, we could consider using more prescription medication such as Linzess or Amitiza, but this is certainly not necessary at this time based on his symptoms.5. He will follow up with us on an as-needed basis if symptoms worsen. Related to Neurogenic bowel Assessments Type Assessment Date assessment Neurogenic bowel assessment Chronic constipation impression Fly is a 27-year -old gentleman with a history of spina bifida, hydrocephalus, tethered cord status post release, who has chronic constipation, likely as a result of neurogenic bowel. He has had this ever since he was a child and has been managing quite well with fiber supplementation alone, which has provided excellent relief of symptoms. The current protein supplement, which also contains a lot of fiber, seems to be helping a lot. We discussed that overall goals of treatment in such a situation would mainly be to control symptoms with laxatives as needed and since his current protein supplement seems to be providing good relief of symptoms, there is nothing further that needs to be done at this time. Patient Care Teams Name Effective Dates (start - stop) Status Members No Information
== END 2023-05-04 12:20 | disposition home or self-care (01) ==
LOC: NFLDREF 05-06 06:38
PROVIDERS: PCP Family Medicine; Referring Provider Family Medicine; Visit Provider Family Medicine
DX: L03.90 Cellulitis, unspecified (principal); F32.A Depression, unspecified; R74.8 Abnormal levels of other serum enzymes; R79.89 Other specified abnormal findings of blood chemistry; Z79.899 Other long term (current) drug therapy
CPT/HCPCS: 82306

== ENCOUNTER 2023-06-01 13:45 | Outpatient (RCR) | payer BC, OTHER, SELFPAY | END 2023-08-11 10:57 | disposition home or self-care (01) | PROVIDERS: PCP Family Medicine; Visit Provider Family Medicine | DX: M62.50 Muscle wasting and atrophy, not elsewhere classified, unspecified site (principal); Q05.9 Spina bifida, unspecified; M62.81 Muscle weakness (generalized); R53.81 Other malaise; R26.89 Other abnormalities of gait and mobility; R26.81 Unsteadiness on feet; R29.898 Other symptoms and signs involving the musculoskeletal system; Z51.89 Encounter for other specified aftercare | CPT/HCPCS: 97110; 97162 ==

== ENCOUNTER 2023-06-11 19:05 | Outpatient (CLI) | payer BC, OTHER, SELFPAY ==
--- OUTSIDE RECORDS SUMMARY | 2023-06-11 19:21 | XMS_ITS | Continuity of Care Document ---
Author Name Unknown Organization [facility] Address [address] [address] [place] [address] Phone Care Team Providers Care Band Ripsaw Operator Name Role Phone Roni Christensen MD Unavailable Unavailable Allergies, Adverse Reactions, Alerts Substance Reaction Status Criticality adhesive tape Rash Active No Information Procedures Procedure Date New Level 3 Advance Directives Directive Yes / No Effective Date File Name No Information Encounters Encounter Description Practice Location Reason(s) For Visit Diagnoses Date Provider Providers Copied on Encounter New Level 3 [facility], [address] [address], [place], [place], [id number], [place] tel:[phone] [facility] GI Symptoms or Concerns (chief complaint) Neurogenic bowelChronic constipation Fermin Tamayo. [address] [address], [place], [place], [id number], [place]. tel:[phone] Referring Provider: Indio Gutierrez MD T, [address] [place], [address]. tel:[phone] Family History Family Member Type Diagnosis Age [...] ; Source: Other Registry Influenza, injectable, Madin [place] Canine Kidney, preservative free, quadrivalent administered Note: [...] ional interface ; Source: Other Registry Novel [id number], all formulations administered Note: [facility] bi-direct ional [...] Registry Payers Payer name Insurance type Covered republican ID Authoriza tion(s) [facility] [id number] [facility] 16 [id number] Social History Type Description Quantity Date Captured [...]
[2023-06-11 19:58] LABS: INR 0.91 (0.91-1.10); Partial Thromboplastin Time* 29 Seconds (23-33); Prothrombin Time 12.8 Seconds
== END 2023-06-11 19:06 | disposition home or self-care (01) ==
PROVIDERS: PCP Family Medicine; Visit Provider Hospitalist
DX: Z01.818 Encounter for other preprocedural examination (principal)
CPT/HCPCS: 85610; 85730

== ENCOUNTER 2024-01-13 16:15 | Outpatient (CLI) | payer OTHER, SELFPAY ==
--- OUTSIDE RECORDS SUMMARY | 2024-01-13 16:18 | XMS_ITS | Encounter Summary ---
Author Organization [facility] Address [address] [place] [address] Care Team Providers Care Oil Scout Name Role Phone Unavailable Primary Care Provider Unavailabl e Encounter Details Date Type Department Care Team (Late st Contact Info) Description 06/30/2016 Historical Ophthalmology RST O[facility] Hever Villanueva M.D. 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 - 06/30/2016 1:10 PM CST Eye General CHIEF COMPLAINT 1 year followup HISTORY OF PRESENT ILLNESS 05/09/2008 surgery for Consecutive exotropia. Procedure: > Medial rectus advancement both eyes. 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 Right medial rectus recession with one-half muscle width superior transposition and left medial rectus recession with one-fourth width superior transposition. (Recession amounts 4.5 mm OD, 4 mm OS.) Patient reports no change in vision since last visit. Mom states that he gets about 2 inches from computer to read it. IMPRESSION / REPORT / PLAN #1 Exotropia #2 Residual OASO/A pattern/extorsion #3 Left beating neurological nystagmus #4 Torticollis secondary to #3. #5 DHD #6 Diplopia-suspect it is when eyes cross when fixates monocularly #7 Photosensitivity to computer. #8 Astigmatism CRx RTC 1 year. DIAGNOSIS #1 Exotropia #2 Residual OASO/A pattern/extorsion #3 Left beating neurological nystagmus #4 Torticollis secondary to #3. #5 DHD #6 Diplopia-suspect it is when eyes cross when fixates monocularly #7 Photosensitivity to computer. #8 Astigmatism CDM Reports - EYEErrplane Id: [id number] Status: Fnl documented in this encounter Plan of Treatment Not on file documented as of this encounter Visit Diagnoses Not on filedocumented in this encounter Additional Health Concerns Assessment Noted Time PHQ-9 Depression Total Score: 8 10/24/19 15 11:06 AM CDT documented as of this encounter
--- OUTSIDE RECORDS SUMMARY | 2024-01-13 16:18 | XMS_ITS | Encounter Summary ---
Author Organization [facility] Address [address] [place] [address] Care Team Providers Care Stoner Out Name Role Phone Unavailable Primary Care Provider Unavailabl e Encounter Details Date Type Department Care Team (Late st Contact Info) Description 11/29/2008 Historical Ophthalmology RST O[facility] Hever Villanueva M.D. 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 Mother reports that he still turns head to left; he thinks in order to see better. He also likes to get very close to computer screen. Eye alignment is good. 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 Procedure: > Medial rectus advancement both eyes. 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 Right medial rectus recession with one-half muscle width superior transposition and left medial rectus recession with one-fourth width superior transposition. (Recession amounts 4.5 mm right, 4 mm left.) Mom says turns his head to the left IMPRESSION / REPORT / PLAN #1 Exotropia resolved. #2 Residual OASO/A pattern/extorsion #3 Left beating neurological nystagmus #4 Torticollis secondary to #3. RTC 6 months. DIAGNOSIS #1 Exotropia resolved. #2 Residual OASO/A pattern/extorsion #3 Left beating neurological nystagmus #4 Torticollis secondary to #3. [facility] Reports - EYEGEN Id: [id number] Status: Fnl documented in this encounter Plan of Treatment Not on file documented as of this encounter Visit Diagnoses Not on filedocumented in this encounter
--- OUTSIDE RECORDS SUMMARY | 2024-01-13 16:18 | XMS_ITS | Encounter Summary ---
Author Organization [facility] Address [address] [place] [address] Care Team Providers Care Computer Console Operator Name Role Phone Unavailable Primary Care Provider Unavailabl e Encounter Details Date Type Department Care Team (Late st Contact Info) Description 09/23/2017 Historical Ophthalmology R[facility] Hever Villanueva M.D. 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 - 09/23/2017 7:32 AM CDT Eye General CHIEF COMPLAINT Routine eye exam HISTORY OF PRESENT ILLNESS 05/09/2008 surgery for Consecutive exotropia. Procedure: > Medial rectus advancement both eyes. 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 Right medial rectus recession with one-half muscle width superior transposition and left medial rectus recession with one-fourth width superior transposition. (Recession amounts 4.5 mm OD, 4 mm OS.) 22 year old routine eye exam. Left eye has been shutting itself and will turn up and left; if pt isthinking about it he can control his eye. Denies double vision, ocular pain, and headaches. IMPRESSION / REPORT / PLAN #1 Exotropia #2 Residual OASO/A pattern/extorsion #3 Left beating neurological nystagmus #4 Torticollis secondary to #3. #5 DHD #6 Diplopia-suspect it is when eyes cross when fixates monocularly #7 Photosensitivity to computer. #8 Astigmatism CRx, put 2 BD in left lens will try out and if he likes it we will send updated RX with new prism to be ground in. Patient told to try out for 2 weeks first. RTC 1 year. DIAGNOSIS #1 Exotropia #2 Residual OASO/A pattern/extorsion #3 Left beating neurological nystagmus #4 Torticollis secondary to #3. #5 DHD #6 Diplopia-suspect it is when eyes cross when fixates monocularly #7 Photosensitivity to computer. #8 Astigmatism CDM Reports - EYEStoryBlender Id: [id number] Status: Fnl documented in this encounter Plan of Treatment Not on file documented as of this encounter Visit Diagnoses Not on filedocumented in this encounter Additional Health Concerns Assessment Noted Time PHQ-9 Depression Total Score: 16 06/14/ 017 12:09 PM CREW CAR DRIVER documented as of this encounter
--- OUTSIDE RECORDS SUMMARY | 2024-01-13 16:18 | XMS_ITS | Encounter Summary ---
Author Organization [facility] Address [address] [place] [address] Care Team Providers Care Tin Can Feeder Name Role Phone Unavailable Primary Care Provider Unavailabl e Encounter Details Date Type Department Care Team (Late st Contact Info) Description 06/02/2012 Historical Ophthalmology [facility] Hever Villanueva M.D. 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 - 06/02/2012 1:22 PM CST Eye General CHIEF COMPLAINT exotropia HISTORY OF PRESENT ILLNESS 16 year old here for follow up of Exotropia. Residual OASO/A pattern/extorsion New glasses with prism. These work well for reading. He has a bit of vertical diplopia at near with the prism glasses. No double in the distance. Able to see 3 D in movies but only in the large field things and things look like they are going in. IMPRESSION / REPORT / PLAN #1 Exotropia #2 Residual OASO/A pattern/extorsion #3 Left beating neurological nystagmus #4 Torticollis secondary to #3. 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 DIAGNOSIS #1 Exotropia #2 Residual OASO/A pattern/extorsion #3 Left beating neurological nystagmus #4 Torticollis secondary to #3. #5 DHD #6 Diplopia-suspect it is when eyes cross when fixates monocularly CDM Reports - EYEGEN Id: [id number] Status: Fnl documented in this encounter Plan of Treatment Not on file documented as of this encounter Visit Diagnoses Not on filedocumented in this encounter
--- OUTSIDE RECORDS SUMMARY | 2024-01-13 16:18 | XMS_ITS | Encounter Summary ---
Author Organization [facility] Address [address] [place] [address] Care Team Providers Care Merchandise Manager Name Role Phone Unavailable Primary Care Provider Unavailabl e Encounter Details Date Type Department Care Team (Late st Contact Info) Description 10/07/2007 Historical Ophthalmology RST O[facility] Hever Villanueva M.D. 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 Right medial rectus recession with one-half muscle width superior transposition and left medial rectus recession with one-fourth width superior transposition. (Recession amounts 4.5 mm right, 4 mm left.) Pain, both eyes, x 2 days, constantly. Patient reports pain at a level of 1/10. He states it is hard to move eyes because they feel stiff. He states that he sees purple spots in eyes. His eyes were slightly swollen today. He will get occasional double vision. He will turn his head to the right. IMPRESSION / REPORT / PLAN #1 Small angle-residual esotropia Same meds for 2 days. RTC 6-8 weeks or immediately if signs of infection (explained) develop. DIAGNOSIS #1 Small angle-residual esotropia CDM Reports - EYEGEN Id: [id number] Status: Fnl documented in this encounter Plan of Treatment Not on file documented as of this encounter Visit Diagnoses Not on filedocumented in this encounter
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
--- OUTSIDE RECORDS SUMMARY | 2024-01-13 16:18 | XMS_ITS | Encounter Summary ---
Author Organization [facility] Address [address] [place] [address] Care Team Providers Care Local Bulk Driver Name Role Phone Unavailable Primary Care Provider Unavailabl e Encounter Details Date Type Department Care Team (Late st Contact Info) Description 05/10/2008 Historical Ophthalmology RST OPH Hever Villanueva M.D. 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 - 05/10/2008 1:48 PM CST Eye General CHIEF COMPLAINT day one post op visit HISTORY OF PRESENT ILLNESS 05/09/08 s/p Consecutive exotropia. Procedure: > Medial rectus advancement both eyes. 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 Right medial rectus recession with one-half muscle width superior transposition and left medial rectus recession with one-fourth width superior transposition. (Recession amounts 4.5 mm right, 4 mm left.) This is a 12 year old male here for a day one post op visit. Eyes still swollen. He states the vision is blurry and states that when watching television it is bad contrast and color is dull. Pain, both eyes, x 1 day, constantly. Patient reports pain at a level of 2/10. IMPRESSION / REPORT / PLAN #1 Good result. Tobradex qid OU for 4 days. RTC 2 months or immediately if signs of infection (explained) develop. DIAGNOSIS #1 good result. CDM Reports - [facility] Id: [id number] Status: Fnl documented in this encounter Plan of Treatment Not on file documented as of this encounter Visit Diagnoses Not on filedocumented in this encounter
--- OUTSIDE RECORDS SUMMARY | 2024-01-13 16:18 | XMS_ITS | Clinical Summary ---
Author Organization [facility] Address [address] [place] [address] Care Team Providers Care Eye Care Professional Name Role Phone Unavailable Primary Care Provider Unavailabl e Source Comments Patient records contain information from all sites at [facility]. For routine questions regarding patient records, call [phone] during business hours, M-F 8:00 AM - 5:00 PM Central Time. Record requests for emergency care only can be directed to [phone] at any time.[facility] Allergies Active Allergy Reactions Criticality Noted Date Comments Adhesive Tape-Silicones Rash 04/13/2013 Latex Other (see comments) 09/12/2002 Precaution Mold Other (see comments) 06/06/2012 [place] mold- Respiratory Distress Pollen Extracts Shortness of breath (Reselect Reaction) 06/02/2012 Nasal congestion Spider Venom Swelling 06/02/2012 Severe local swelling Medications Medication Sig Dispensed Refills Start Date End Date Status ACYCLOVIR ORAL Take 1 tablet by mouth 2 (two) times a day. 09/23/2017 Active DULoxetine (CYMBALTA) [address] capsule Take 1 capsule by mouth 2 (two) times a day. 06/14/2017 Active melatonin 1 mg tablet Take 1 tablet by mouth every evening. 01/20/2016 Active NON FORMULARY daily. Vivanse 30 mg* (Free Text Entry) one time daily. 06/01/2017 Active buPROPion (WELLBUTRIN SR) 150 mg 12 hr tablet Take 2 tablets by mouth daily. 300 mlg total 01/14/2017 Active cetirizine (ZyrTEC) 10 mg tablet Take 1 tablet by mouth daily as needed. Allergies 06/02/2012 Active cholecalciferol, vitamin D3, 25 mcg (1,000 Unit) tablet Take 5,000 Units by mouth daily. Active methylphenidate HCl 72 mg tablet extended release 24hr Take 1 tablet by mouth every morning. Active propranoloL (INDERAL LA) 60 mg 24 hr capsule Take 60 mg by mouth at bedtime. 03/27/2023 Active sertraline (ZOLOFT) 100 mg tablet Take 200 mg by mouth daily. 06/09/2022 Active buPROPion XL (Wellbutrin XL) 300 mg 24 hr tablet Take 300 mg by mouth every morning. 01/29/2022 Active fish oil 500 mg capsule Take 500 mg by mouth daily. 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 Not very hard 03/25/2023 Exercise Vital Sign Answer Date Recorde d On average, how many days pe r week do you engage in moderate to strenuous exercise (like a brisk walk)? 0 days 03/25/2023 On average, how many minutes do you engage in exercise at this level? 0 min 03/25/2023 Hunger Vital Sign Answer Date Recorded Within the past 12 months, y ou worried that your food would run out before you got the money to buy more. Never true 03/25/20 23 Within the past 12 months, t he food you bought just didn't last and you didn't have money to get more. Never true 03/25/2023 PRAPARE - Transportation Answer Date Re corded In the past 12 months, has l ack of transportation kept you from medical appointments or from getting medications? Yes 02/27 In the past 12 months, has l ack of transportation kept you from meetings, work, or from getting things needed for daily living? Yes 03/25/2023 Nutrition Answer Date Recorded Nutrition: EVOO Fat Source Unknown 03/25 On average, how many serving s of fruits and vegetables do you eat per day (serving size is equal to 1 cup or approximately the size of a tennis ball)? 0-2 03/25/2023 Dental Answer Date Recorded Dental: Regular Dentist Yes 03/25/20 Employment Answer Date Recorded Employment status Employed and actively working without restrictions 03/25/2023 Housing Stability Answer Date Recorded What is your living situation today? I have a [facility] place to live 03/25/2023 Sex and Gender Information Value Date Recorded Sex Assigned at Male 12/12/2022 9:16 AM CDT Gender Identity Male 05/26/2017 2:12 PM RISK CONTROL SPECIALIST Sexual Orientation Straight 05/26/2017 2: 12 PM RISK CONTROL SPECIALIST Last Filed Vital Signs Vital Sign Reading Time Taken Comments Blood Pressure 134/73 04/01/2023 1:29 PM CDT Pulse 93 04/01/2023 1:29 PM CDT Temperature 36.4 ??C (97.6 ??F) 04/01/2023 1:29 PM CD T Respiratory Rate 16 06/20/2014 8:19 AM RISK CONTROL SPECIALIST Oxygen Saturation - - Inhaled Oxygen Concentration - - Weight 67.8 kg (149 lb 9.3 oz) 04/01/2023 1:29 P M CDT Height 154.6 cm (5' 0.87) 04/01/2023 1:29 PM CD T Body Mass Index 28.39 04/01/2023 1:29 PM CDT Plan of Treatment Health Maintenance Due Date Last Done Comments Depression Monitoring (PHQ-9) 1996 HIV Screening 1996 Pneumococcal vaccine (0-64 y ears) (1 of 2 - PCV) 2002 06/28/2019 DTaP,Tdap,and Td Vaccines (6 - Tdap) 02/15/2014 02/14/2014, 02/14/2014, 10/30/2008, Additional history exists HPV Vaccines (2 - Risk male 3-dose series) 09/12/2014 08/15/2014, 08/15/2014, 08/15/2014 Zoster Vaccines (1 of 2) 2015 Asthma Action Plan 08/26/2017 01/21/2016 Asthma Control Test Questionnaire 08/26/2017 Asthma Management/Exacerbati on Questionnaire (AMQ/AEQ) 08/26/2017 COVID-19 Vaccine (3 - Pfizer risk series) 12/13/2020 11/15/2020, 10/25/2020 Influenza Vaccine (#1) 2024 3, 09/26/2021, 06/29/2019, Additional history exists Hepatitis B Vaccines Completed 10/10/2001, 01/24/1997, 01/24/1997, Additional history exists Medical Devices Implanted Type Area Internal Combustion Engine Subassembler Device Identifier Shelf Expiration Date Model / Serial / Lot Conversions - Default Historical Implant Device Implanted:12/26 (Quantity not on file) CSF Management Device Description:Device Status Te xt - CSF Shunt/Valve. ENGLISH TUTOR Shunt. Small Frag-Screw Jerad 3.5x20 - Dominguez [id number] Implanted:Qty: 1 on 08/07/2003 Hardware e.g. pins/screws/ rods Depuy Synthes Description:Device Manufactu rer - Synthes. Device Status Text - HARDWARE-7599. R M-Screw Compressing Sst - Dom[place]uez [id number] Implanted:Qty: 1 on 08/07/2003 Hardware e.g. pins/screws/ rods George and Nephew Description:Device Manufactu rer - George&Nephew. Device Status Text - HARDWARE-7085. R M-Screw Lag Inter 40m - Dominguez [id number] Implanted:Qty: 1 on 08/07/2003 Hardware e.g. pins/screws/ rods George and Nephew Description:Device Manufactu rer - George&Nephew. Device Status Text - HARDWARE-7647. Small Frag-Screw Jerad 3.5x22 - Dom[place]uez [id number] Implanted:Qty: 2 on 08/07/2003 Hardware e.g. pins/screws/ rods Depuy Synthes Description:Device Manufactu rer - Synthes. Device Status Text - HARDWARE-7600. R M-Plate Inter P Slot [id number] - Dom[place]uez [id number] Implanted:Qty: 1 on 08/07/2003 Hardware e.g. pins/screws/ rods George and Nephew Description:Device Manufactu rer - George[employer]Nephew. Device Status Text - HARDWARE-7668. Standard-Screw Jerad 4.5 X 46 - [place] [id number] Implanted:Qty: 1 on 04/21/2007 Hardware e.g. pins/screws/ rods Depuy Synthes Description:Device Manufactu rer - Synthes. Device Status Text - HARDWARE-24015. Standard-Screw Jerad 4.5 X 30 - [place] [id number] Implanted:Qty: 3 on 04/21/2007 Hardware e.g. pins/screws/ rods Depuy Synthes Description:Device Manufactu rer - Synthes. Device Status Text - HARDWARE-77298. Lc Dc-Plate Ss Narr. 4.5x 8h - Dominguez [id number] Implanted:Qty: 1 on 04/21/2007 Hardware e.g. pins/screws/ rods Depuy Synthes Description:Device Manufactu rer - Synthes. Device Status Text - HARDWARE-8528. K-Wire 2.0 X 150 - Dom[place]uez [id number] Implanted:Qty: 1 on 04/21/2007 Hardware e.g. pins/screws/ rods Depuy Synthes Description:Device Manufactu rer - Synthes. Device Status Text - HARDWARE-7802. Standard-Screw Jerad 4.5 X 36 - [place] [id number] Implanted:Qty: 3 on 04/21/2007 Hardware e.g. pins/screws/ rods Depuy Synthes Description:Device Manufactu rer - Synthes. Device Status Text - HARDWARE-65544. Standard-Screw Jerad 4.5 X 32 - [place] [id number] Implanted:Qty: 1 on 04/21/2007 Hardware e.g. pins/screws/ rods Depuy Synthes Description:Device Manufactu rer - Synthes. Device Status Text - HARDWARE-77745. Standard-Screw Jerad 4.5 X 34 - [place] [id number] Implanted:Qty: 1 on 04/21/2007 Hardware e.g. pins/screws/ rods Depuy Synthes Description:Device Manufactu rer - Synthes. Device Status Text - HARDWARE-52306. Staple Cartridge-3m 13 X 10 - Dominguez [id number] Implanted:Qty: 1 on 07/23/2008 Hardware e.g. pins/screws/ rods 3M Description:Device Manufactu rer - 3M. Device Status Text - HARDWARE-7241. K-Wire-Ss 4 Smooth .062 - Dominguez [id number] Implanted:Qty: 2 on 07/23/2008 Hardware e.g. pins/screws/ rods Mony Description:Device Manufactu rer - Mony Che.. Device Status Text - HARDWARE-871. Pin Pérez Smooth Single End 5 64 - Dom[place]uez [id number] Implanted:Qty: 1 on 07/23/2008 Hardware e.g. pins/screws/ rods [place] Description:Device Manufactu rer - [place] Che.. Device Status Text - HARDWARE-9289. Conversions - Default Historical Implant Device Implanted:12/26 (Quantity not on file) Hardware e.g. pins/screws/ rods Left: Leg Description:Body Location - Thigh L. Device Status Text - Hardware. Plate in Proximal Left Femur. Cath Powerport Mri W 8.0fr - Dominguez [id number] Implanted:Qty: 1 on 03/23/2013 Implanted Port Single Lumen [employer]Bard Description:Device Manufactu [facility]. Device Status Text - IVAD/PORT-264889. [facility] Data - ][id number]. Duragen Suturable 2x2 - Dom[place]uez [id number] Implanted:Qty: 1 on 02/24/2006 Mesh or Patch Other/Legacy - See Implant Description Integra Description:Device Manufactu rer - IntegrDafiti. Body Location - Other. Not Applicable. Device Status Text - MESHPATCH-704272. Patch Dura-Guard Sn 4x 4 - Dom[place]uez [id number] Implanted:Qty: 1 on 06/18/2014 Mesh or Patch Other/Legacy - See Implant Description Synovis Description:Device Manufactu rer - Synovis. Body Location - Other. Not Applicable. Device Status Text - MESHPATCH-175830. Legacy Screw Set Ti Breakoff - Dom[place]uez [id number] Implanted:Qty: 9 on 06/18/2009 Spine Implant Medtronic Description:Device Manufactu rer - Medtronic Sofamor [place]. Device Status Text - SPINE IMP-97777. Legacy Screw Fixed Ang 6.5 X 35 Ti - Dom[place] [id number] Implanted:Qty: 1 on 06/18/2009 Spine Implant Medtronic Description:Device Manufactu rer - Medtronic Sofamor [place]. Device Status Text - SPINE IMP-57708. Legacy Screw Fixed Angled 7.5 X 45 Ti - [place]uez [id number] Implanted:Qty: 1 on 06/18/2009 Spine Implant Medtronic Description:Device Manufactu rer - Medtronic Sofamor [place]. Device Status Text - SPINE IMP-39510. Legacy Staple Ti 15mm - Dom[place]uez [id number] Implanted:Qty: 4 on 06/18/2009 Spine Implant Medtronic Description:Device Manufactu rer - Medtronic Sofamor [place]. Device Status Text - SPINE IMP-04176. Legacy Staple Ti 13mm - [place] [id number] Implanted:Qty: 3 on 06/18/2009 Spine Implant Medtronic Description:Device Manufactu rer - Medtronic Sofamor [place]. Device Status Text - SPINE IMP-80490. Tsrh-Phillip Ti 1 4 Flex L51cm - Dom[place]uez [id number] Implanted:Qty: 1 on 06/18/2009 Spine Implant Medtronic Description:Device Manufactu rer - Medtronic [employer] Device Status Text - SPINE IMP-78550. Legacy Screw Fixed Angled 7.5 X 40 Ti - Dom[place]uez [id number] Implanted:Qty: 1 on 06/18/2009 Spine Implant Medtronic Description:Device Manufactu rer - Medtronic Sofamor [place]. Device Status Text - SPINE IMP-82012. Legacy Screw Fixed Ang 6.5 X 30 Ti - Dom[place]uez [id number] Implanted:Qty: 3 on 06/18/2009 Spine Implant Medtronic Description:Device Manufactu rer - Medtronic Sofamor [place]. Device Status Text - SPINE IMP-36768. Legacy Screw Fixed Ang 6.5 X 40 Ti - Dom[place]uez [id number] Implanted:Qty: 3 on 06/18/2009 Spine Implant Medtronic Description:Device Manufactu rer - Medtronic Sofamor [place]. Device Status Text - SPINE IMP-95490. Conversions - Default Historical Implant Device Implanted:12/26 (Quantity not on file) Spine Implant Other/Legacy - See Implant Description Description:Body Location - Generalize. T8-L4. Device Status Text - Spine Implant. Spine Stabilizing Instrumentation. [address] [place] [phone]
--- OUTSIDE RECORDS SUMMARY | 2024-01-13 16:18 | XMS_ITS | Encounter Summary ---
Author Organization [facility] Address [address] [place] [address] Care Team Providers Care Electrical Engineering Drafting Officer Name Role Phone Unavailable Primary Care Provider Unavailabl e Encounter Details Date Type Department Care Team (Late st Contact Info) Description 06/09/2007 Historical Ophthalmology RST OPH Hever Villanueva M.D. Social History Tobacco Use Types Packs/Day Years Used Date Smoking Tobacco: Never Assessed Sex and Gender Information Value Date Recorded Sex Assigned at Male 12/12/2022 9:16 AM CDT Gender Identity Male 05/26/2017 2:12 PM EXTRUSION PRESS ADJUSTER Sexual Orientation Straight 05/26/2017 2: 12 PM EXTRUSION PRESS ADJUSTER documented as of this encounter Progress Notes * Hever Villanueva M.D. - 06/09/2007 3:22 PM CST Eye General CHIEF COMPLAINT Follow up on A pattern esotropia, right amblyopia and nystagmus HISTORY OF PRESENT ILLNESS This is a 11 year old male here for a follow up on A pattern esotropia, right amblyopia and nystagmus. He has been patching the right eye starting out at 6 hours a day and now has not been patching for the past 3 weeks and states he is switching back and forth with which eye he is using. He can notuse both eyes at once he says. He had hip surgery since last being seen. Per mom they were only able to patch 1 month - takes 2x as long as to do homework. Feels the patch is scratchy and irritates the skin. IMPRESSION / REPORT / PLAN #1 A pattern esotropia #2 right amblyopia # 3 nystagmus recommend new cycloplegic refraction given, patch on skin left eye 6 hours/day Recheck 2 months and reconsider surgical correction DIAGNOSIS #1 A pattern esotropia #2 right amblyopia #3 nystagmus CDM Reports - [facility] Id: [id number] Status: Fnl documented in this encounter Plan of Treatment Not on file documented as of this encounter Visit Diagnoses Not on filedocumented in this encounter
--- OUTSIDE RECORDS SUMMARY | 2024-01-13 16:18 | XMS_ITS | Encounter Summary ---
Author Organization [facility] Address [address] [place] [address] Care Team Providers Care Instructional Services Librarian Name Role Phone Unavailable Primary Care Provider Unavailabl e Encounter Details Date Type Department Care Team (Late st Contact Info) Description 07/05/2015 Historical Ophthalmology RST OPH Hever Villanueva M.D. Social History Tobacco Use Types Packs/Day Years Used Date Smoking Tobacco: Never Assessed Sex and Gender Information Value Date Recorded Sex Assigned at Male 12/12/2022 9:16 AM CDT Gender Identity Male 05/26/2017 2:12 PM HAM ROLLING MACHINE OPERATOR Sexual Orientation Straight 05/26/2017 2: 12 PM HAM ROLLING MACHINE OPERATOR documented as of this encounter Progress Notes * Hever Villanueva M.D. - 07/05/2015 7:59 AM CST Eye General CHIEF COMPLAINT 2 year follow up HISTORY OF PRESENT ILLNESS 05/09/2008 surgery for Consecutive exotropia. Procedure: > Medial rectus advancement both eyes. 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 Right medial rectus recession with one-half muscle width superior transposition and left medial rectus recession with one-fourth width superior transposition. (Recession amounts 4.5 mm OD, 4 mm OS.) 19 year old male here for a 2 year follow up on Exotropia, Residual OASO/A pattern/extorsion, Left beating neurological nystagmus, Torticollis, DHD, Diplopia-suspect it is when eyes cross when fixates monocularly, Photosensitivity to computer, Astigmatism. He tends to squint with the right eye whendoing things at near. Denies headaches. No crossing noticed. Glasses seem to be working ok. IMPRESSION / REPORT / PLAN #1 Exotropia #2 Residual OASO/A pattern/extorsion #3 Left beating neurological nystagmus #4 Torticollis secondary to #3. #5 DHD #6 Diplopia-suspect it is when eyes cross when fixates monocularly #7 Photosensitivity to computer. #8 Astigmatism CRx Artificial tears. RTC Artificial tears Computer glasses with optical centers displaced superiorly. DIAGNOSIS #1 Exotropia #2 Residual OASO/A pattern/extorsion #3 Left beating neurological nystagmus #4 Torticollis secondary to #3. #5 DHD #6 Diplopia-suspect it is when eyes cross when fixates monocularly #7 Photosensitivity to computer. #8 Astigmatism CDM Reports - [facility] Id: [id number] Status: Fnl documented in this encounter Plan of Treatment Not on file documented as of this encounter Visit Diagnoses Not on filedocumented in this encounter Additional Health Concerns Assessment Noted Time PHQ-9 Depression Total Score: 8 10/24/19 15 11:06 AM CDT documented as of this encounter
--- OUTSIDE RECORDS SUMMARY | 2024-01-13 16:18 | XMS_ITS | Encounter Summary ---
Author Organization [facility] Address [address] [place] [address] Care Team Providers Care Resource Agent Name Role Phone Unavailable Primary Care Provider Unavailabl e Encounter Details Date Type Department Care Team (Late st Contact Info) Description 11/17/2010 Historical Ophthalmology RST OPH Hever Villanueva M.D. Social History Tobacco Use Types Packs/Day Years Used Date Smoking Tobacco: Never Assessed Sex and Gender Information Value Date Recorded Sex Assigned at Male 12/12/2022 9:16 AM CDT Gender Identity Male 05/26/2017 2:12 PM OPEN DEVELOPER OPERATOR Sexual Orientation Straight 05/26/2017 2: 12 PM OPEN DEVELOPER OPERATOR documented as of this encounter Progress Notes * Hever Villanueva M.D. - 11/17/2010 10:34 AM CDT Eye General CHIEF COMPLAINT 6 month follow up HISTORY OF PRESENT ILLNESS 05/09/08 s/p Consecutive exotropia. Procedure: > Medial rectus advancement both eyes. 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 Right medial rectus recession with one-half muscle width superior transposition and left medial rectus recession with one-fourth width superior transposition. (Recession amounts 4.5 mm right, 4 mm left.) This is a 15 year old male here for a 6 month follow up on Exotropia, residual OASO/A pattern/extorsion, left beating neurological nystagmus, torticollis, DHD and diplopia-suspect it is when eyes cross when fixates monocularly. He states that he is having a harder time seeing both near and distance. Seems like letters physically get smaller. Eyes will get sore from fatigue. He can't control when left eye turns off. He is no longer on Neurontin 2.5 weeks ago. Letters seem small all the time. When the left eye turns off the images seem to get larger. IMPRESSION / REPORT / PLAN #1 Exotropia #2 Residual OASO/A pattern/extorsion #3 Left beating neurological nystagmus #4 Torticollis secondary to #3. #5 DHD #6 Diplopia-suspect it is when eyes cross when fixates monocularly OK for SCL. RTC 6 months. CDM Reports - [facility] Id: [id number] Status: Fnl documented in this encounter Plan of Treatment Not on file documented as of this encounter Visit Diagnoses Not on filedocumented in this encounter
--- OUTSIDE RECORDS SUMMARY | 2024-01-13 16:18 | XMS_ITS ---
Author Organization [facility] Address [address] [place] [address] Care Team Providers Care Supervisor Grower Name Role Phone Unavailable Unavailable Unavailable Surgery Details Not on file Complications Check Surgery Details section. Procedure Estimated Blood Loss Check Surgery Details section. Procedure Findings Check Surgery Details section. Procedure Specimens Taken Check Surgery Details section.
--- OUTSIDE RECORDS SUMMARY | 2024-01-13 16:18 | XMS_ITS | Encounter Summary ---
Author Organization [facility] Address [address] [place] [address] Care Team Providers Care Opthalmic Tech Name Role Phone Unavailable Primary Care Provider Unavailabl e Encounter Details Date Type Department Care Team (Late st Contact Info) Description 08/04/2007 Historical Ophthalmology RST OPH Hever Villanueva M.D. Social History Tobacco Use Types Packs/Day Years Used Date Smoking Tobacco: Never Assessed Sex and Gender Information Value Date Recorded Sex Assigned at Male 12/12/2022 9:16 AM CDT Gender Identity Male 05/26/2017 2:12 PM ANESTHESIA ASSOCIATE Sexual Orientation Straight 05/26/2017 2: 12 PM ANESTHESIA ASSOCIATE documented as of this encounter Progress Notes * Hever Villanueva M.D. - 08/04/2007 10:26 AM CST Eye General CHIEF COMPLAINT Follow up on A pattern esotropia, right amblyopia and nystagmus HISTORY OF PRESENT ILLNESS this is an 12 year old male here for follow up for A- pattern esotropia, right amblyopia and nystagmus. He has been patching RIGHT eye 6 hours a day. Previous note says to patch left eye. Patient states he is using both eyes equally, but mother states the left eye still wanders a bit. Mother also states that he sits extremely close to the TV and computer. Patient is wearing his glasses well. IMPRESSION / REPORT / PLAN #1 A pattern esotropia with OASO and intorsion #2 CVL #3 Amblyopia resolved Schedule BMRc/BSOt (temporally). Discussed risks, goals, alternatives, advance directives, and the necessity of other members of the healthcare team participating in the procedure with the patient (or legal claims representative and others present during the discussion). The patient understands and wishesto proceed with the procedure. Recess both MR 4 mm. DIAGNOSIS #1 A pattern esotropia with OASO and intorsion #2 CVL #3 Amblyopia resolved [facility] Id: [id number] Status: Fnl documented in this encounter Plan of Treatment Not on file documented as of this encounter Visit Diagnoses Not on filedocumented in this encounter
--- OUTSIDE RECORDS SUMMARY | 2024-01-13 16:18 | XMS_ITS | Encounter Summary ---
Author Organization [facility] Address [address] [place] [address] Care Team Providers Care Cancer Program Director Name Role Phone Unavailable Primary Care Provider Unavailabl e Encounter Details Date Type Department Care Team (Late st Contact Info) Description 07/13/2013 Historical Ophthalmology RST OPH Hever Villanueva M.D. Social History Tobacco Use Types Packs/Day Years Used Date Smoking Tobacco: Never Assessed Sex and Gender Information Value Date Recorded Sex Assigned at Male 12/12/2022 9:16 AM CDT Gender Identity Male 05/26/2017 2:12 PM IDENTIFICATION PRINTING MACHINE SETTER Sexual Orientation Straight 05/26/2017 2: 12 PM IDENTIFICATION PRINTING MACHINE SETTER documented as of this encounter Progress Notes * Hever Villanueva M.D. - 07/13/2013 12:51 PM CST Eye General CHIEF COMPLAINT Yearly follow up HISTORY OF PRESENT ILLNESS Patient states things have been going well. He does have to get really close to the computer screenand holds things close when reading;states electronics are harder to read then paper. Denies diplopia. MCB: Can read normal paper books just fine. Hard to read any text on a computer screen unless really big. Bold fonts seem to help. Dx Hodgkins currently undergoing chemo and radiation treatments. Notes eyes feel pretty dry also. IMPRESSION / REPORT / PLAN #1 Exotropia [...] to computer. #8 Astigmatism CDM Reports - [facility] Id: [id number] Status: Fnl documented in this encounter Plan of Treatment Not on file documented as of this encounter Visit Diagnoses Not on filedocumented in this encounter
--- OUTSIDE RECORDS SUMMARY | 2024-01-13 16:18 | XMS_ITS | Encounter Summary ---
Author Organization [facility] Address [address] [place] [address] Care Team Providers Care Varnish Remover Name Role Phone Unavailable Primary Care Provider Unavailabl e Encounter Details Date Type Department Care Team (Late st Contact Info) Description 11/02/2011 Historical Ophthalmology RST OPH Hever Villanueva M.D. 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 - 11/02/2011 2:42 PM CDT Eye General CHIEF COMPLAINT Exotropia HISTORY OF PRESENT ILLNESS Mother states he does not have double vision, yet sees 2 lines at one time with his math problems and his brain tries to figure out the 2 problems as one. GMB - patient describes that when he has 2 separate horizontal lines of text, they will mix together (not double). He has to uncover one line at a time to be able to do his work. IMPRESSION / REPORT / PLAN #1 Exotropia #2 Residual OASO/A pattern/extorsion #3 Left beating neurological nystagmus #4 Torticollis secondary to #3. #5 DHD #6 Diplopia-suspect it is when eyes cross when fixates monocularly try 3 BD LE fresnel-symptoms resolved with 3 PD BD prism OS. Head tilt also better. Give split in glasses ground in. RTC 6 months. DIAGNOSIS #1 Exotropia #2 Residual OASO/A pattern/extorsion #3 Left beating neurological nystagmus #4 Torticollis secondary to #3. #5 DHD #6 Diplopia-suspect it is when eyes cross when fixates monocularly CDM Reports - [facility] Id: [id number] Status: Fnl documented in this encounter Plan of Treatment Not on file documented as of this encounter Visit Diagnoses Not on filedocumented in this encounter
--- OUTSIDE RECORDS SUMMARY | 2024-01-13 16:18 | XMS_ITS | Referral Summary ---
Author Organization [facility] Address [address] [place] [address] Care Team Providers Care Sheet Metal Smith Name Role Phone Unavailable Primary Care Provider Unavailabl e Source Comments Patient records contain information from all sites at [facility]. For routine questions regarding patient records, call [phone] during business hours, M-F 8:00 AM - 5:00 PM Central Time. Record requests for emergency care only can be directed to [phone] at any time.[facility] Allergies Active Allergy Reactions Criticality Noted Date Comments Adhesive Tape-Silicones Rash 04/13/2013 Latex Other (see comments) 09/12/2002 Precaution Mold Other (see comments) 06/06/2012 Rhine mold- Respiratory Distress Pollen Extracts Shortness of [...] your living situation today? I have a [facility] place to live 03/25/2023 Sex and Gender Information Value Date Recorded Sex Assigned at Male 12/12/2022 9:16 AM CDT Gender Identity Male 05/26/2017 2:12 PM BLE[employer]ER [employer] Sexual Orientation Straight 05/26/2017 2: 12 PM [employer] Last Filed Vital Signs Vital Sign Reading Time Taken Comments Blood Pressure 134/73 04/01/2023 1:29 PM CDT Pulse 93 04/01/2023 1:29 PM CDT Temperature 36.4 ??C (97.6 ??F) 04/01/2023 1:29 PM CD T Respiratory Rate 16 06/20/2014 8:19 AM [employer] Oxygen Saturation - - Inhaled Oxygen Concentration - - Weight 67.8 kg (149 lb 9.3 oz) 04/01/2023 1:29 P M CDT Height 154.6 cm (5' 0.87) 04/01/2023 1:29 PM CD T Body Mass Index 28.39 04/01/2023 1:29 PM CDT Plan of Treatment Not on file Medical Devices Implanted Type Area Trawl Net Maker Device Identifier Shelf Expiration Date Model / Serial / Lot Conversions - Default Historical Implant Device Implanted:12/26 (Quantity not on file) CSF Management Device Description:Device Status Te xt - CSF Shunt/Valve. NEW CAR MAKE READY WORKER Shunt. Small Frag-Screw Jerad 3.5x20 - Dominguez [...] - HARDWARE-7600. R M-Plate Inter P Slot [id number] - Dominguez [id number] Implanted:Qty: 1 on 08/07/2003 Hardware e.g. pins/screws/ rods George and Nephew Description:Device Manufactu rer - George&Nephew. Device Status Text - HARDWARE-7668. Standard-Screw Jerad 4.5 X 46 - Dominguez [id number] Implanted:Qty: 1 on 04/21/2007 Hardware e.g. pins/screws/ rods Depuy Synthes Description:Device Manufactu rer - Synthes. Device Status Text - HARDWARE-70690. Standard-Screw Jerad 4.5 X 30 - Dominguez [id number] Implanted:Qty: 3 on 04/21/2007 Hardware e.g. pins/screws/ rods Depuy Synthes Description:Device Manufactu rer - Synthes. Device Status Text - HARDWARE-52728. Lc Dc-Plate Ss Narr. 4.5x 8h - Dominguez [id number] Implanted:Qty: 1 on 04/21/2007 Hardware e.g. pins/screws/ rods Depuy Synthes Description:Device Manufactu rer - Synthes. Device Status Text - HARDWARE-8528. K-Wire 2.0 X 150 - Dominguez [id number] Implanted:Qty: 1 on 04/21/2007 Hardware e.g. pins/screws/ rods Depuy Synthes Description:Device Manufactu rer - Synthes. Device Status Text - HARDWARE-7802. Standard-Screw Jerad 4.5 X 36 - Dominguez [id number] Implanted:Qty: 3 on 04/21/2007 Hardware e.g. pins/screws/ rods Depuy Synthes Description:Device Manufactu rer - Synthes. Device Status Text - HARDWARE-13482. Standard-Screw Jerad 4.5 X 32 - Dominguez [id number] Implanted:Qty: 1 on 04/21/2007 Hardware e.g. pins/screws/ rods Depuy Synthes Description:Device Manufactu rer - Synthes. Device Status Text - HARDWARE-13063. Standard-Screw Jerad 4.5 X 34 - Dominguez [id number] Implanted:Qty: 1 on 04/21/2007 Hardware e.g. pins/screws/ rods Depuy Synthes Description:Device Manufactu rer - Synthes. Device Status Text - HARDWARE-07862. Staple Cartridge-3m 13 X 10 - Dominguez [id number] Implanted:Qty: 1 on 07/23/2008 Hardware e.g. pins/screws/ rods 3M Description:Device Manufactu rer - 3M. Device Status Text - HARDWARE-7241. K-Wire-Ss 4 Smooth .062 - Dominguez [id number] Implanted:Qty: 2 on 07/23/2008 Hardware e.g. pins/screws/ rods Rocklin Description:Device Manufactu rer - Mony Che.. Device Status Text - HARDWARE-871. Pin Pérez Smooth Single End 5 64 - Dominguez [id number] Implanted:Qty: 1 on 07/23/2008 Hardware e.g. pins/screws/ rods [place]lin Description:Device Manufactu rer - Mony Che.. Device Status Text - HARDWARE-9289. Conversions - Default Historical Implant Device Implanted:12/26 (Quantity not on file) Hardware e.g. pins/screws/ rods Left: Leg Description:Body Location - Thigh L. Device Status Text - Hardware. Plate in Proximal Left Femur. Cath Powerport Mri W 8.0fr - Dominguez [id number] Implanted:Qty: 1 on 03/23/2013 Implanted Port Single Lumen C.R.Bard Description:Device Manufactu rer Bard [facility]. Device Status Text - IVAD/PORT-335930. [facility] Data - ][id number]. Duragen Suturable 2x2 - Dominguez [id number] Implanted:Qty: 1 on 02/24/2006 Mesh or Patch Other/Legacy - See Implant Description Integra Description:Device Manufactu rer - Integra Lifesciences Che. Body Location - Other. Not Applicable. Device Status Text - [id number]. Patch Dura-Guard Sn 4x 4 - Dominguez [id number] Implanted:Qty: 1 on 06/18/2014 Mesh or Patch Other/Legacy - See Implant Description Synovis Description:Device Manufactu rer - Synovis. Body Location - Other. Not Applicable. Device Status Text - MESHPATCH-988306. Legacy Screw Set Ti Breakoff - Dominguez [id number] Implanted:Qty: 9 on 06/18/2009 Spine Implant Medtronic Description:Device Manufactu rer - Medtronic Sofamor Danek. Device Status Text - SPINE IMP-00527. Legacy Screw Fixed Ang 6.5 X 35 Ti - Dominguez [id number] Implanted:Qty: 1 on 06/18/2009 Spine Implant Medtronic Description:Device Manufactu rer - Medtronic Sofamor [place]. Device Status Text - SPINE IMP-57178. Legacy Screw Fixed Angled 7.5 X 45 Ti - Dominguez [id number] Implanted:Qty: 1 on 06/18/2009 Spine Implant Medtronic Description:Device Manufactu rer - Medtronic Sofamor [place]k. Device Status Text - SPINE IMP-80310. Legacy Staple Ti 15mm - Dominguez [id number] Implanted:Qty: 4 on 06/18/2009 Spine Implant Medtronic Description:Device Manufactu rer - Medtronic Sofamor [place]k. Device Status Text - SPINE IMP-10366. Legacy Staple Ti 13mm - Dominguez [id number] Implanted:Qty: 3 on 06/18/2009 Spine Implant Medtronic Description:Device Manufactu rer - Medtronic Sofamor [place]k. Device Status Text - SPINE IMP-65800. Tsrh-Phillip Ti 1 4 Flex L51cm - Dominguez [id number] Implanted:Qty: 1 on 06/18/2009 Spine Implant Medtronic Description:Device Manufactu rer - Medtronic Xintu [employer]. Device Status Text - SPINE IMP-71644. Legacy Screw Fixed Angled 7.5 X 40 Ti - Dominguez [id number] Implanted:Qty: 1 on 06/18/2009 Spine Implant Medtronic Description:Device Manufactu rer - Medtronic Sofamor Danek. Device Status Text - SPINE IMP-04200. Legacy Screw Fixed Ang 6.5 X 30 Ti - Dominguez [id number] Implanted:Qty: 3 on 06/18/2009 Spine Implant Medtronic Description:Device Manufactu rer - Medtronic Sofamor Danek. Device Status Text - SPINE IMP-22220. Legacy Screw Fixed Ang 6.5 X 40 Ti - Dominguez [id number] Implanted:Qty: 3 on 06/18/2009 Spine Implant Medtronic Description:Device Manufactu rer - Medtronic Sofamor Danek. Device Status Text - SPINE IMP-36969. Conversions - Default Historical Implant Device Implanted:12/26 (Quantity not on file) Spine Implant Other/Legacy - See Implant Description Description:Body Location - Generalize. T8-L4. Device Status Text - Spine Implant. Spine Stabilizing Instrumentation.
--- OUTSIDE RECORDS SUMMARY | 2024-01-13 16:18 | XMS_ITS | Encounter Summary ---
Author Organization [facility] Address [address] [place] [address] Care Team Providers Care Refrigerator Repair Technician Name Role Phone Unavailable Primary Care Provider Unavailabl e Encounter Details Date Type Department Care Team (Late st Contact Info) Description 09/09/2009 Historical Ophthalmology RST OPH Hever Villanueva M.D. 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 - 09/09/2009 10:02 AM CDT Eye General CHIEF COMPLAINT Follow up, double vision HISTORY OF PRESENT ILLNESS 05/09/08 s/p Consecutive exotropia. Procedure: > Medial rectus advancement both eyes. 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 Right medial rectus recession with one-half muscle width superior transposition and left medial rectus recession with one-fourth width superior transposition. (Recession amounts 4.5 mm right, 4 mm left.) Mom says turns his head to the left This is a 14 year old male here for a follow up on exotropia resolved, residual OASO/A pattern/extorsion, left beating neurological nystagmus and torticollis. Binocular horizontal diplopia; both eyes; x 3 months; on and off; symptoms are moderate and states that the double will disappear if I shut off one eye. Mother states that she can tell when he is not focusing with both eyes. IMPRESSION / REPORT / PLAN #1 Exotropia resolved. #2 Residual OASO/A pattern/extorsion #3 Left beating neurological nystagmus #4 Torticollis secondary to #3. Gave updated RX RTC 6 months. DIAGNOSIS #1 Exotropia resolved. #2 Residual OASO/A pattern/extorsion #3 Left beating neurological nystagmus #4 Torticollis secondary to #3. CDM Reports - [facility] Id: [id number] Status: Fnl documented in this encounter Plan of Treatment Not on file documented as of this encounter Visit Diagnoses Not on filedocumented in this encounter
--- OUTSIDE RECORDS SUMMARY | 2024-01-13 16:18 | XMS_ITS | Encounter Summary ---
Author Organization [facility] Address [address] [place] [address] Care Team Providers Care Hospital Food Service Worker Name Role Phone Unavailable Primary Care Provider Unavailabl e Encounter Details Date Type Department Care Team (Late st Contact Info) Description 04/28/2010 Historical Ophthalmology RST OPH Hever Villanueva M.D. 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 - 04/28/2010 3:26 PM CDT Eye General CHIEF COMPLAINT Getting triple vision. HISTORY OF PRESENT ILLNESS 05/09/08 s/p Consecutive exotropia. Procedure: > Medial rectus advancement both eyes. 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 Right medial rectus recession with one-half muscle width superior transposition and left medial rectus recession with one-fourth width superior transposition. (Recession amounts 4.5 mm right, 4 mm left.) This is a 14 year old male here for a follow up on residual OASO/A pattern/extorsion, Left beating neurological nystagmus and torticollis. Left eye is drifting out and causing triple vision and images seem to overlap and superimpose. He will get dizzy at times. IMPRESSION / REPORT / PLAN #1 Exotropia #2 Residual OASO/A pattern/extorsion #3 Left beating neurological nystagmus #4 Torticollis secondary to #3. #5 DHD #6 Diplopia-suspect it is when eyes cross when fixates monocularly OK for SCL. RTC 6 months. DIAGNOSIS #1 Exotropia #2 Residual OASO/A pattern/extorsion #3 Left beating neurological nystagmus #4 Torticollis secondary to #3. #5 DHD #6 Diplopia-suspect it is when eyes cross when fixates monocularly CDM Reports - [facility] Id: [id number] Status: Fnl documented in this encounter Plan of Treatment Not on file documented as of this encounter Visit Diagnoses Not on filedocumented in this encounter
--- OUTSIDE RECORDS SUMMARY | 2024-01-13 16:18 | XMS_ITS | Encounter Summary ---
Author Organization [facility] Address [address] [place] [address] Care Team Providers Care Machine Loader Name Role Phone Unavailable Primary Care Provider Unavailabl e Encounter Details Date Type Department Care Team (Late st Contact Info) Description 02/28/2008 Historical Ophthalmology RST OPH Hever Villanueva M.D. Social History Tobacco Use Types Packs/Day Years Used Date Smoking Tobacco: Never Assessed Sex and Gender Information Value Date Recorded Sex Assigned at Male 12/12/2022 9:16 AM CDT Gender Identity Male 05/26/2017 2:12 PM CERTIFIED APPLIANCE SERVICE TECHNICIAN Sexual Orientation Straight 05/26/2017 2: 12 PM CERTIFIED APPLIANCE SERVICE TECHNICIAN documented as of this encounter Progress Notes * Hever Villanueva M.D. - 02/28/2008 2:50 PM CDT Eye General CHIEF COMPLAINT left eye drifts out HISTORY OF PRESENT ILLNESS 12 year 8 month old male here for 6 week recheck consecutive exotropia with primary superior oblique overaction/A pattern/intorsion OU. 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 Right medial rectus recession with one-half muscle width superior transposition and left medialrectus recession with one-fourth width superior transposition. (Recession amounts 4.5 mm right, 4 mm left.) Mother still sees left eye drifting out. IMPRESSION / REPORT / PLAN #1 Consecutive exotropia #2 Nystagmus Glasses not correct. Change prescription to October prescription. Schedule bimedial advancements using nonabsorbable sutures. Discussed risks, goals, alternatives, advance directives, and the necessity of other members of the healthcare team participating in the procedure with the patient (or legal patient intake representative and others present during the discussion). The patient understands and wishes to proceed with the procedure. DIAGNOSIS #1 Consecutive exotropia #2 Nystagmus [facility]: [id number] Status: Fnl documented in this encounter Plan of Treatment Not on file documented as of this encounter Visit Diagnoses Not on filedocumented in this encounter
--- OUTSIDE RECORDS SUMMARY | 2024-01-13 16:18 | XMS_ITS | Encounter Summary ---
Author Organization [facility] Address [address] [place] [address] Care Team Providers Care Community Development Manager Name Role Phone Unavailable Primary Care Provider Unavailabl e Encounter Details Date Type Department Care Team (Late st Contact Info) Description 01/13/2008 Historical Ophthalmology RST OPH Hever Villanueva M.D. Social History Tobacco Use Types Packs/Day Years Used Date Smoking Tobacco: Never Assessed Sex and Gender Information Value Date Recorded Sex Assigned at Male 12/12/2022 9:16 AM CDT Gender Identity Male 05/26/2017 2:12 PM SHEEP SORTER Sexual Orientation Straight 05/26/2017 2: 12 PM SHEEP SORTER documented as of this encounter Progress Notes * Hevre Villanueva M.D. - 01/13/2008 9:27 AM CDT Eye General HISTORY OF PRESENT ILLNESS 12 year 6 month old male here for 6 week recheck consecutive exotropia with primary superior oblique overaction/A pattern/intorsion OU He was given cycloplegic refraction last visit. He reports that he prefers to fixate right eye. He recognizes that left eye is shut off. 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 Right medial rectus recession with one-half muscle width superior transposition and left medial rectus recession with one-fourth width superior transposition. (Recession amounts 4.5 mm right, 4 mm left.) IMPRESSION / REPORT / PLAN #1 Consecutive exotropia #2 Absolutely no ophthalmologic signs of shunt malfunction Pt to consider BMR adv and call. RTC 6 months. DIAGNOSIS #1 Consecutive exotropia #2 Absolutely no ophthalmologic signs of shunt malfunction CDM Reports - [facility] Id: [id number] Status: Fnl documented in this encounter Plan of Treatment Not on file documented as of this encounter Visit Diagnoses Not on filedocumented in this encounter
--- OUTSIDE RECORDS SUMMARY | 2024-01-13 16:18 | XMS_ITS | Encounter Summary ---
Author Organization [facility] Address [address] [place] [address] Care Team Providers Care Bottom Cager Name Role Phone Unavailable Primary Care Provider Unavailabl e Encounter Details Date Type Department Care Team (Late st Contact Info) Description 07/09/2008 Historical Ophthalmology RST OPH Hever Villanueva M.D. Social History Tobacco Use Types Packs/Day Years Used Date Smoking Tobacco: Never Assessed Sex and Gender Information Value Date Recorded Sex Assigned at Male 12/12/2022 9:16 AM CDT Gender Identity Male 05/26/2017 2:12 PM STAFF COUNSEL Sexual Orientation Straight 05/26/2017 2: 12 PM STAFF COUNSEL documented as of this encounter Progress Notes * Hever Villanueva M.D. - 07/09/2008 12:58 PM CST Eye General CHIEF COMPLAINT follow up HISTORY OF PRESENT ILLNESS 05/09/08 [...] 12 year old male here for a follow up. He states that when he uses both eyes at the same time the muscles seem to get sore and vision is blurry. He is having a head tilt to the left again. Vision is single. He states his depth perception is off. IMPRESSION / REPORT / PLAN #1 Consecutive exotropia S/P Bimedial advancements both eyes with good result #2 Nystagmus #3 Torticollis RTC 4 months-Shagufta and me to evaluate left head turn. Does not correspond to greater latent nystagmus in the left eye so rule out incomitant strabismus as a cause. DIAGNOSIS #1 Consecutive exotropia #2 Nystagmus #3 Torticollis CDM Reports - [facility] Id: [id number] Status: Fnl documented in this encounter Plan of Treatment Not on file documented as of this encounter Visit Diagnoses Not on filedocumented in this encounter
--- OUTSIDE RECORDS SUMMARY | 2024-01-13 16:19 | XMS_ITS | Encounter Summary ---
Author Organization [facility] Address [address] [place] [address] Care Team Providers Care Children'S Choir Director Name Role Phone Unavailable Primary Care Provider Unavailabl e Encounter Details Date Type Department Care Team (Late st Contact Info) Description 04/04/2007 Historical Ophthalmology RST OPH Hever Villanueva M.D. Social History Tobacco Use Types Packs/Day Years Used Date Smoking Tobacco: Never Assessed Sex and Gender Information Value Date Recorded Sex Assigned at Male 12/12/2022 9:16 AM CDT Gender Identity Male 05/26/2017 2:12 PM LEGAL BILLING CLERK Sexual Orientation Straight 05/26/2017 2: 12 PM LEGAL BILLING CLERK documented as of this encounter Progress Notes * Hever Villanueva M.D. - 04/04/2007 8:28 AM CDT Eye General CHIEF COMPLAINT blurred vision HISTORY OF PRESENT ILLNESS This is a 11 year 10 month old male here for more blurred vision. He has spina bifida and hydrocephalus. Patient states that is takes longer to focus his eyes. Also states that his eyes jerk up anddown. Right eye aches this morning; pain at 1/10. Denies diplopia. Patient wears glasses all the time; eyes still feel blurry with glasses on. He was full term minus 2 weeks weighing 7+ pounds. IMPRESSION / REPORT / PLAN #1 A-pattern esotropia #2 Amblyopia, right #3 Nystagmus recommend new cycloplegic refraction given, patch on skin left eye 6 hours/day Recheck 2 months and reconsider surgical correction DIAGNOSIS #1 A-pattern esotropia #2 Amblyopia, right #3 Nystagmus CDM Reports - [facility] Id: [id number] Status: Fnl documented in this encounter Plan of Treatment Not on file documented as of this encounter Visit Diagnoses Not on filedocumented in this encounter
--- OUTSIDE RECORDS SUMMARY | 2024-01-13 16:19 | XMS_ITS | Encounter Summary ---
Author Organization [employer] Address [address] [place] [address] Care Team Providers Care Certified Ophthalmic Surgical Assistant Name Role Phone Rob Tillman MD Primary Care Provider + [phone] Encounter Details Date Type Department Care Team (Late st Contact Info) Description 05/21/2014 Scanned History External to Transferred Record, Provider [facility] Social History Tobacco Use Types Packs/Day Years Used Date Smoking Tobacco: Never Assessed Sex and Gender Information Value Date Recorded Sex Assigned at Male 07/12/2021 3:57 PM MACHINIST AUTOMOTIVE Gender Identity Male 07/12/2021 3:57 PM MACHINIST AUTOMOTIVE Sexual Orientation Straight 07/12/2021 3: 57 PM MACHINIST AUTOMOTIVE documented as of this encounter Plan of Treatment Not on file documented as of this encounter Visit Diagnoses Not on filedocumented in this encounter Care Teams Certified Ophthalmic Surgical Assistant Relationship Specialty Start Date End Date Rob Tillman MD [address] [place] [id number] PCP - General Physical Medicine and Rehabilitation 08/01/19 01/13/23 documented as of this encounter
--- OUTSIDE RECORDS SUMMARY | 2024-01-13 16:19 | XMS_ITS | Encounter Summary ---
Author Organization [employer] Address [address], [place] [address] Care Team Providers Care Computer Repairer Name Role Phone Rob Tillman MD Primary Care Provider [phone] Encounter Details Date Type Department Care Team (Late st Contact Info) Description 05/31/2018 Correspondence External to External, [place] [address] PRIOR AUTH Social History Tobacco Use Types Packs/Day Years Used Date Smoking Tobacco: Never Smokeless Tobacco: Never Alcohol Use Standard Drinks/Week Comments Yes 0 (1 standard drink = 0.6 oz pur e alcohol) Sex and Gender Information Value Date Recorded Sex Assigned at Male 07/12/2021 3:57 PM VIRTUAL OFFICE ASSISTANT Gender Identity Male 07/12/2021 3:57 PM VIRTUAL OFFICE ASSISTANT Sexual Orientation Straight 07/12/2021 3: 57 PM VIRTUAL OFFICE ASSISTANT documented as of this encounter Plan of Treatment Not on file documented as of this encounter Visit Diagnoses Not on filedocumented in this encounter Care Teams Computer Repairer Relationship Specialty Start Date End Date Rob Tillman MD [address] [place] [address] PCP - General Physical Medicine and Rehabilitation 08/01/19 01/13/23 documented as of this encounter
--- OUTSIDE RECORDS SUMMARY | 2024-01-13 16:19 | XMS_ITS | Encounter Summary ---
Author Organization [facility] Address [address], [place] [address] Care Team Providers Care Detective Name Role Phone Rob Tillman MD Primary Care Provider + [phone] Encounter Details Date Type Department Care Team (Latest Contact Info) Description 08/28/2019 Correspondence Physiatry/Physical Medicine at [facility] [address] [facility]. [place], [place] [id number] Rob Tillman MD [address] [place] [address] RX LETTER CERTIFICATION OF MEDICAL NECESSITY Social History Tobacco Use Types Packs/Day Years Used Date Smoking Tobacco: Never Smokeless Tobacco: Never Alcohol Use Standard Drinks/Week Comments Yes 0 (1 standard drink = 0.6 oz pur e alcohol) occasional PHQ-2 Answer Date Recorded PHQ-2 Score 6 06/29/2019 Sex and Gender Information Value Date Recorded Sex Assigned at Male 07/12/2021 3:57 PM FASHION SHOW DIRECTOR Gender Identity Male 07/12/2021 3:57 PM FASHION SHOW DIRECTOR Sexual Orientation Straight 07/12/2021 3: 57 PM FASHION SHOW DIRECTOR documented as of this encounter Plan of Treatment Not on file documented as of this encounter Visit Diagnoses Not on filedocumented in this encounter Care Teams Detective Relationship Specialty Start Date End Date Rob Tillman MD [address] [place], [place] [phone] PCP - General Physical Medicine and Rehabilitation 08/01/19 01/13/23 documented as of this encounter
--- OUTSIDE RECORDS SUMMARY | 2024-01-13 16:19 | XMS_ITS | Encounter Summary ---
Author Organization [employer] Address [address] [place] [address] Care Team Providers Care Offshore Wind Operations Manager Name Role Phone Rob Tillman MD Primary Care Provider + [phone] Encounter Details Date Type Department Care Team (Late st Contact Info) Description 05/17/2018 Scanned History External to Transferred Record, Provider [facility] Social History Tobacco Use Types Packs/Day Years Used Date Smoking Tobacco: Never Smokeless Tobacco: Never Alcohol Use Standard Drinks/Week Comments Yes 0 (1 standard drink = 0.6 oz pur e alcohol) Sex and Gender Information Value Date Recorded Sex Assigned at Male 07/12/2021 3:57 PM SAP PORTAL DEVELOPER Gender Identity Male 07/12/2021 3:57 PM SAP PORTAL DEVELOPER Sexual Orientation Straight 07/12/2021 3: 57 PM SAP PORTAL DEVELOPER documented as of this encounter Plan of Treatment Not on file documented as of this encounter Visit Diagnoses Not on filedocumented in this encounter Care Teams Offshore Wind Operations Manager Relationship Specialty Start Date End Date Rob Tillman MD [address] [place] [address] PCP - General Physical Medicine and Rehabilitation 08/01/19 01/13/23 documented as of this encounter
--- OUTSIDE RECORDS SUMMARY | 2024-01-13 16:19 | XMS_ITS | Encounter Summary ---
Author Organization [facility] Address [address] [place] [address] Care Team Providers Care Coil Winder Repair Name Role Phone Unavailable Primary Care Provider Unavailabl e Encounter Details Date Type Department Care Team (Late st Contact Info) Description 08/27/2005 Historical Ophthalmology RST O[facility] Yvon Davidson M.D. Social History Tobacco Use Types Packs/Day Years Used Date Smoking Tobacco: Never Assessed Sex and Gender Information Value Date Recorded Sex Assigned at Male 12/12/2022 9:16 AM CDT Gender Identity Male 05/26/2017 2:12 PM CARE DIRECTOR Sexual Orientation Straight 05/26/2017 2: 12 PM CARE DIRECTOR documented as of this encounter Progress Notes * Yvon Davidson M.D. - 08/27/2005 12:00 AM CST Eye General CHIEF COMPLAINT one year follow up on partially accommodative esotropia and latent nystagmus HISTORY OF PRESENT ILLNESS This is a 10 year 1 month old male here for a one year follow up on partially accommodative esotropia and latent nystagmus. Glasses are scratched and is in need of new ones. He has been bringing things up closer to face. THere is a question of the stent in head is enlarged. IMPRESSION / REPORT / PLAN #1 partially accommodative ET #2 latent nystagmus #3 hyperopic astigmatism both eyes Rx= copy ref #1 recheck 1 yr, sooner prn DIAGNOSIS #1 partially accommodative ET #2 latent nystagmus #3 hyperopic astigmatism both eyes CDM Reports - EYEGEN Id: [id number] Status: Fnl documented in this encounter Plan of Treatment Not on file documented as of this encounter Visit Diagnoses Not on filedocumented in this encounter
--- OUTSIDE RECORDS SUMMARY | 2024-01-13 16:19 | XMS_ITS | Encounter Summary ---
Author Organization [facility] Address [address] [place] [address] Care Team Providers Care Product Consultant Name Role Phone Unavailable Primary Care Provider Unavailabl e Encounter Details Date Type Department Care Team (Late st Contact Info) Description 05/17/2006 Historical Ophthalmology RST OPH Yvon Davidson M.D. Social History Tobacco Use Types Packs/Day Years Used Date Smoking Tobacco: Never Assessed Sex and Gender Information Value Date Recorded Sex Assigned at Male 12/12/2022 9:16 AM CDT Gender Identity Male 05/26/2017 2:12 PM HEALTH IT SPECIALIST Sexual Orientation Straight 05/26/2017 2: 12 PM HEALTH IT SPECIALIST documented as of this encounter Progress Notes * Yvon Davidson M.D. - 05/17/2006 12:00 AM CST Eye General CHIEF COMPLAINT blurry vision HISTORY OF PRESENT ILLNESS This is a 10 year 10 month old male here for a exam due to having blurry vision, can not focus very clearly on things and is sitting closer to the computer and television. He has a history of partially accomodative esotropia, latent nystagmus and hyperopic astigmatism both eyes. The right eye will drift in some even with the glasses. IMPRESSION / REPORT / PLAN #1 blurred vision both eyes #2 hyperopic astigmatism both eyes min change compared to present glasses, Va wc essentially the same as past exams discussed in detail with parents, continue to monitor vision, recheck 6 mos, sooner prn DIAGNOSIS #1 blurred vision both eyes #2 hyperopic astigmatism both eyes CDM Reports - EYEGEN Id: [id number] Status: Fnl documented in this encounter Plan of Treatment Not on file documented as of this encounter Visit Diagnoses Not on filedocumented in this encounter
--- OUTSIDE RECORDS SUMMARY | 2024-01-13 16:19 | XMS_ITS | Encounter Summary ---
Author Organization [facility] Address [address], [place] [address] Care Team Providers Care Claims Auditor Name Role Phone Rob Tillman MD Primary Care Provider + [phone] Encounter Details Date Type Department Care Team (Latest Contact Info) Description 08/15/2019 Correspondence Physiatry/Physical Medicine at [facility] [address] [facility] [place] [address] Rob Tillman MD [address] [place], [place] [phone] [facility] ORDER Social History Tobacco Use Types Packs/Day Years Used Date Smoking Tobacco: Never Smokeless Tobacco: Never Alcohol Use Standard Drinks/Week Comments Yes 0 (1 standard drink = 0.6 oz pur e alcohol) occasional PHQ-2 Answer Date Recorded PHQ-2 Score 6 06/29/2019 Sex and Gender Information Value Date Recorded Sex Assigned at Male 07/12/2021 3:57 PM SYNOPTIC METEOROLOGIST Gender Identity Male 07/12/2021 3:57 PM SYNOPTIC METEOROLOGIST Sexual Orientation Straight 07/12/2021 3: 57 PM SYNOPTIC METEOROLOGIST documented as of this encounter Plan of Treatment Not on file documented as of this encounter Visit Diagnoses Not on filedocumented in this encounter Care Teams Claims Auditor Relationship Specialty Start Date End Date Rob Tillman MD [address] [place], [place] [phone] PCP - General Physical Medicine and Rehabilitation 08/01/19 01/13/23 documented as of this encounter
--- OUTSIDE RECORDS SUMMARY | 2024-01-13 16:19 | XMS_ITS | Encounter Summary ---
Author Organization [employer] Address [address], [place] [address] Care Team Providers Care Bundle Helper Name Role Phone Rob Tillman MD Primary Care Provider + [phone] Encounter Details Date Type Department Care Team (Late st Contact Info) Description 09/15/2018 Correspondence None No Primary/Referring, Phy NEW PATIENT MALE HISTORY Social History Tobacco Use Types Packs/Day Years Used Date Smoking Tobacco: Never Smokeless Tobacco: Never Alcohol Use Standard Drinks/Week Comments Yes 0 (1 standard drink = 0.6 oz pur e alcohol) Sex and Gender Information Value Date Recorded Sex Assigned at Male 07/12/2021 3:57 PM GUEST SERVICES LEAD Gender Identity Male 07/12/2021 3:57 PM GUEST SERVICES LEAD Sexual Orientation Straight 07/12/2021 3: 57 PM GUEST SERVICES LEAD documented as of this encounter Plan of Treatment Not on file documented as of this encounter Visit Diagnoses Not on filedocumented in this encounter Care Teams Bundle Helper Relationship Specialty Start Date End Date Rob Tillman MD [address] [place] [address] PCP - General Physical Medicine and Rehabilitation 08/01/19 01/13/23 documented as of this encounter
--- OUTSIDE RECORDS SUMMARY | 2024-01-13 16:19 | XMS_ITS | Encounter Summary ---
Author Organization [facility] Address [address] [place] [address] Care Team Providers Care Admissions Consultant Name Role Phone Unavailable Primary Care Provider Unavailabl e Encounter Details Date Type Department Care Team (Late st Contact Info) Description 11/24/2006 Historical Ophthalmology RST O[facility] Dale Mccallum M.D. [address] [place] [address] Social History Tobacco Use Types Packs/Day Years Used Date Smoking Tobacco: Never Assessed Sex and Gender Information Value Date Recorded Sex Assigned at Male 12/12/2022 9:16 AM CDT Gender Identity Male 05/26/2017 2:12 PM ASSISTANT MANAGER TRAINEE Sexual Orientation Straight 05/26/2017 2: 12 PM ASSISTANT MANAGER TRAINEE documented as of this encounter Progress Notes * Dale Mccallum M.D. - 11/24/2006 9:57 AM CDT Eye General CHIEF COMPLAINT things are still blurry at far distance, and close up also HISTORY OF PRESENT ILLNESS 11 year 4 month old male here for 6 month follow up for partially esotropia, latent nystagmus and hyperopic astigmatism. He has spina bifida and hydrocephalus. He still complains that some things areblurry. IMPRESSION / REPORT / PLAN #1 hyperopic astigmatism both eyes Gave above Rx return 1 year or prn DIAGNOSIS #1 hyperopic astigmatism both eyes CDM Reports - EYEGEN Id: [id number] Status: Fnl documented in this encounter Plan of Treatment Not on file documented as of this encounter Visit Diagnoses Not on filedocumented in this encounter
--- OUTSIDE RECORDS SUMMARY | 2024-01-13 16:19 | XMS_ITS | Clinical Summary ---
Author Organization [employer] Address [address] [place] [address] Care Team Providers Care Anesthesiologist/Physician Name Role Phone Unavailable Primary Care Provider Unavailabl e Source Comments You are receiving this document as you are listed as the primary care provider,follow-up provider, or the patient has been referred to you for consultation.This is in compliance with the Medicare andMedicaid EHR Incentive Program,which states Providers who transition their patient to another setting of careor provider of care or refers their patient to another provider of care shouldprovide summary care record for each transition of care or referral. [employer] Allergies Active Allergy Reactions Criticality Noted Date Comments Adhesive Rash 04/13/2013 Latex Other, see comments 09/12/2002 Precaution Molds & Smuts Other, see comments 06/06/2012 Luquillo mold- Respiratory Distress Other Swelling 06/02/2012 Spider Venom: Severe local swelling Pollen Extract Breathing Difficulty High 06/02/2012 Nasal congestion Medications Medication Sig Dispensed Refills Start Date End Date Status Multiple Vitamins-Minerals (CENTRUM ADULTS OR) daily. Activ e cholecalciferol (VITAMIN D3) 1000 units tablet Take 5,000 Units by mouth daily. Active sildenafil (REVATIO) 20 MG tablet Take 1 Tablet (20 mg) by mouth daily as needed. Take 1-5 tablets on demand one hour prior to planned intercourse. 10 Tablet 3 06/12/2022 Active sertraline (ZOLOFT) 100 MG tablet Take 1 Tablet (100 mg) by mouth daily. 90 Tablet 1 09/28/2022 Active buPROPion (WELLBUTRIN XL) 300 MG 24 hour release tablet Take 1 Tablet (300 mg) by mouth daily. 90 Tablet 1 09/28/2022 Active methylphenidate (CONCERTA) 54 MG controlled release tablet Take 1 Tablet (54 mg) by mouth daily. DX: F90.2 30 Tablet 12/14/2022 Active methylphenidate (CONCERTA) 54 MG controlled release tablet Take 1 Tablet (54 mg) by mouth daily. DX: F90.2 Do not start before January 13, 2023. 30 Tablet 01/13/2023 Active methylphenidate (CONCERTA) 54 MG controlled release tablet Take 1 Tablet (54 mg) by mouth daily. DX: F90.2 Do not start before February 12, 2023. 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, s/p bimedial recession 10/05/07, then repair consecutive XT with bimedial advancement 05/09/08 09/23/2018 Overview: Surgery at [facility] - see scanned records Hodgkin lymphoma, unspecifie d, lymph nodes of axilla and upper limb 04/21/2018 Spina bifida 04/21/2018 Attention deficit hyperactiv ity disorder (ADHD), combined type 06/07/2017 Major depressive disorder, single episode, sever e 06/07/2017 Mild intermittent asthma 06/03/2006 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 08/26/2004 Immunizations Name Administration Dates Next Due Influenza IIV4 (Quadrivalent) 0.5mL (73905) 07/2019 Pfizer Monovalent 12+ Purple Top 11/15/2020,09/28 Family History Medical History Relation Name Comments Glaucoma Negative Family History Macular Degeneration Negative Family History Retinal Detachment Negative Family History Social History Tobacco Use Types Packs/Day Years Used Date Smoking Tobacco: Never Smokeless Tobacco: Never Alcohol Use Standard Drinks/Week Comments Yes 0 (1 standard drink = 0.6 oz pur e alcohol) occasional PHQ-2 Answer Date Recorded PHQ-2 Score 3 09/28/2022 Sex and Gender Information Value Date Recorded Sex Assigned at Male 07/12/2021 3:57 PM HOSIERY KNITTER Gender Identity Male 07/12/2021 3:57 PM HOSIERY KNITTER Sexual Orientation Straight 07/12/2021 3: 57 PM HOSIERY KNITTER Last Filed Vital Signs Vital Sign Reading Time Taken Comments Blood Pressure 137/79 06/12/2022 11:05 AM HOSIERY KNITTER Pulse 86 06/12/2022 11:05 AM HOSIERY KNITTER Temperature 36.6 ??C (97.8 ??F) 05/13/2022 3:49 PM CS T Respiratory Rate 18 05/13/2022 3:49 PM HOSIERY KNITTER Oxygen Saturation 100% 05/13/2022 3:49 PM HOSIERY KNITTER Inhaled Oxygen Concentration - - Weight 69.3 kg (152 lb 12.8 oz) 05/13/2022 3:49 PM HOSIERY KNITTER Height 154.9 cm (5' 1) 12/18/2020 2:08 PM CDT Body Mass Index 28.87 12/18/2020 2:08 PM CDT Plan of Treatment Health Maintenance Due Date Last Done Comments Hep C Screening (Preventive Services) 1996 Pneumococcal (1 - PCV) 2002 06/28/2019 HIV Screening (Preventive Services) 2012 DTaP/Tdap/Td (6 - Tdap) 02/15/2014 02/15/20 14, 10/30/2008, 10/10/2001, Additional history exists HPV Vaccine (2 - Male 3-dose series) 09/12/2014 08/15/2014 HepA (2 of 2 - 2-dose series) 02/12/2015 08/15/2014 HepB (1) 2015 Zoster/Shingles (1 of 2) 2015 Asthma ACT 07/19/2021 07/19/2020, 08/16/2019 COVID-19 Vaccine (3 - 2022-2 4 season) 2023 11/15/2020, 10/25/2020 Medicare Annual Wellness Visit 06/28/2023 06/29/2019 Influenza (#1) 2024 09/26/2021, 07/2019, 04/24/2016, Additional history exists Hib Completed 02/24/1998, 12/28, 1996, Additional history exists IPV (Polio) Completed 10/10/2001, 12/28, 1996, Additional history exists MCV4 Completed 08/15/2014 Fly Moran Personal/Family Self [address] [place] [phone] Mary BethFly lara Personal/Family Self [address] [place] [phone]
--- OUTSIDE RECORDS SUMMARY | 2024-01-13 16:19 | XMS_ITS | Encounter Summary ---
Author Organization [facility] Address [address] [place] [address] Care Team Providers Care Environmental Health Nurse Name Role Phone Unavailable Primary Care Provider Unavailabl e Encounter Details Date Type Department Care Team (Late st Contact Info) Description 08/26/2004 Historical Ophthalmology RST O[facility] Yvon Davidson M.D. Social History Tobacco Use Types Packs/Day Years Used Date Smoking Tobacco: Never Assessed Sex and Gender Information Value Date Recorded Sex Assigned at Male 12/12/2022 9:16 AM CDT Gender Identity Male 05/26/2017 2:12 PM TRANSPORT COORDINATOR Sexual Orientation Straight 05/26/2017 2: 12 PM TRANSPORT COORDINATOR documented as of this encounter Progress Notes * Yvon Davidson M.D. - 08/26/2004 12:00 AM CST Eye General CHIEF COMPLAINT follow up on partially accommodative esotropia HISTORY OF PRESENT ILLNESS THis is a 9 year 1 month old male here for a follow up on partially accommodative esotropia. He hadsome difficulty with the vision screening and when he was watching a movie he was seeing an illumination of green lights as he was watching the TV. He wears the glasses well. IMPRESSION / REPORT / PLAN #1 partially accommodative ET #2 latent nystagmus discussed with mother, continue with present glasses, recheck 1 yr, sooner prn DIAGNOSIS #1 partially accommodative ET #2 latent nystagmus CDM Reports - EYEGEN Id: [id number] Status: Fnl documented in this encounter Plan of Treatment Not on file documented as of this encounter Visit Diagnoses Not on filedocumented in this encounter
--- OUTSIDE RECORDS SUMMARY | 2024-01-13 16:19 | XMS_ITS | Clinical Summary ---
Author Organization [facility] Address [address] [place] [address] Care Team Providers Care Underwater Photographer Name Role Phone Sadie Peter PA-C Primary Care Provider Safia Mcclellan MD Unavailable [phone] Sadie Cruz PA-C Unavailable Allergies Active Allergy Reactions Criticality Noted Date Comments Adhesive Tape Rash Low 08/24/2022 Latex Anaphylaxis,Unknown High 1996 Mold Shortness Of Breath High 08/24/2022 Molds & Smuts Other (See Comments) 06/06/2012 [place] mold- Respiratory Distress Pollen Extract Difficulty breathing High 06/02/2012 Nasal congestion Medications Medication Sig Dispensed Refills Start Date End Date Status ARIPiprazole (ABILIFY) 5 MG tablet 05/26/2022 Active buPROPion (WELLBUTRIN XL) 300 MG 24 hr tablet 08/12/2022 Active CONCERTA 54 MG CR tablet 07/29/2022 Active sertraline (ZOLOFT) 100 MG tablet 06/09/2022 Active sildenafil (REVATIO) 20 MG tablet Take 20 mg by mouth 06/12/2022 Active Vitamin D3 (CHOLECALCIFEROL) 25 mcg (1000 units) tablet Take 5,000 Units by mouth daily Active [place]-3 Fish Oil 500 MG capsule Take 1 capsule (500 mg) by mouth daily Active Immunizations Name Administration Dates Next Due COVID-19 MONOVALENT 12+ (Pfizer) 11/15/2020,09/28 DTAP (<7y) 10/10/2001, 8,01/24/1997,11/17,1996 HEPATITIS A (PEDS 12M-18Y) 08/15/2014 HIB, Unspecified 02/24/1998, 7,1996,09/15 HPV Quadrivalent 08/15/2014 HepB, Unspecified 01/24/1997,1996,09/15/18 97 Influenza (H1N1) 04/29/2009 Influenza Vaccine >6 months,quad, PF 06/29/2019, 05/23/2014,05/29/2013 Influenza, seasonal, injectable, PF 04/29/2009 Influenza,INJ,MDCK,PF,Quad >6mo(Flucelvax) 04/24/2016 MMR 10/10/2001,07/31/1997 Meningococcal ACWY (Menveo??) 08/15/2014 Polio, Unspecified 10/10/2001, 7,1996,09/15 Td (Adult), Adsorbed 02/14/2014,10/30/2008 Varicella 11/07/2009,02/13/1998 Family History Medical History Relation Comments Metabolic syndrome Father Matthieu's thyroiditis Mother Relation Status Comments Father Mother Social History Tobacco Use Types Packs/Day Years Used Date Smoking Tobacco: Never Smokeless Tobacco: Never Tobacco Cessation:Counseling Given: Not Answered Alcohol Use Standard Drinks/Week Comments Yes 0 (1 standard drink = 0.6 oz pur e alcohol) Adolescent Education Answer Date Record ed Getting School Help Needed Not on file 03/20 Sex and Gender Information Value Date Recorded Sex Assigned at Male 08/17/2022 9:54 AM SHUTTLE TRUCK DRIVER Gender Identity Male 08/17/2022 9:54 AM SHUTTLE TRUCK DRIVER Sexual Orientation Straight 08/17/2022 9: 54 AM SHUTTLE TRUCK DRIVER Last Filed Vital Signs Vital Sign Reading Time Taken Comments Blood Pressure 126/85 08/24/2022 10:52 AM SHUTTLE TRUCK DRIVER Pulse 90 08/24/2022 10:52 AM SHUTTLE TRUCK DRIVER Temperature 37.4 ??C (99.4 ??F) 08/24/2022 10:[address] Respiratory Rate 16 08/24/2022 10:52 AM SHUTTLE TRUCK DRIVER Oxygen Saturation 99% 08/24/2022 10:52 AM SHUTTLE TRUCK DRIVER Inhaled Oxygen Concentration - - Weight 67 kg (147 lb 11.2 oz) 08/24/2022 10:52 A M SHUTTLE TRUCK DRIVER Height 154.9 cm (5' 1) 08/24/2022 10:52 AM SHUTTLE TRUCK DRIVER Body Mass Index 27.91 08/24/2022 10:52 AM SHUTTLE TRUCK DRIVER Plan of Treatment Health Maintenance Due Date Last Done Comments ADVANCE CARE PLANNING 1996 ANNUAL REVIEW OF HM ORDERS 1996 HIV SCREENING 2011 DTAP/TDAP/TD IMMUNIZATION (6 - Tdap) 02/15/2014 02/14/2014, 10/30/2008, 10/10/2001, Additional history exists HEPATITIS C SCREENING 2014 MEDICARE ANNUAL WELLNESS VISIT 2014 HPV IMMUNIZATION (2 - Male 3-dose series) 09/12/2014 08/15/2014 COVID-19 Vaccine (3 - season) 2023 11/15/2020, 10/25/2020 PHQ-2 (once per calendar year) 2023 INFLUENZA VACCINE (#1) 2024 0, 04/24/2016, 05/23/2014, Additional history exists HEPATITIS B IMMUNIZATION Completed 997, 1996, 1996 IPV IMMUNIZATION Completed 10/10/2001, , 1996, Additional history exists MENINGITIS IMMUNIZATION Completed 08/15/2014 Pneumococcal Vaccine: Pediatrics (0 to 5 Years) and At-Risk Patients (6 to 64 Years) Aged Out No longer eligible based on patient's age to complete this topic RSV MONOCLONAL ANTIBODY Aged Out No l onger eligible based on patient's age to complete this topic Care Teams Underwater Photographer Relationship Specialty Start Date End Date Sadie Peter PA-C [facility] [address] [place] [address] PCP - General Physician Telecommunications Officer 06/16/22 Safia Mcclellan MD [address] [facility] [address] [place] [address] Hospitalist Endocrinology, Diabetes, and Metabolism 06/16/22 Sadie Cruz PA-C [address] [place], [place] [id number] Assigned Endocrinology Provider 07/30/23
--- OUTSIDE RECORDS SUMMARY | 2024-01-13 16:19 | XMS_ITS | Encounter Summary ---
Author Organization [facility] Address [address] [place] [address] Care Team Providers Care Senior Front End Developer Name Role Phone Rob Tillman MD Primary Care Provider + [phone] Encounter Details Date Type Department Care Team (Late st Contact Info) Description 03/17/2018 Scanned History External to Transferred Record, Provider [facility] Social History Tobacco Use Types Packs/Day Years Used Date Smoking Tobacco: Never Assessed Sex and Gender Information Value Date Recorded Sex Assigned at Male 07/12/2021 3:57 PM MOTION PICTURE DIRECTOR Gender Identity Male 07/12/2021 3:57 PM MOTION PICTURE DIRECTOR Sexual Orientation Straight 07/12/2021 3: 57 PM MOTION PICTURE DIRECTOR documented as of this encounter Plan of Treatment Not on file documented as of this encounter Visit Diagnoses Not on filedocumented in this encounter Care Teams Senior Front End Developer Relationship Specialty Start Date End Date Rob Tillman MD [address] [place] [address] PCP - General Physical Medicine and Rehabilitation 08/01/19 01/13/23 documented as of this encounter
--- OUTSIDE RECORDS SUMMARY | 2024-01-13 16:19 | XMS_ITS | Encounter Summary ---
Author Organization [facility] Address [address] [place] [address] Care Team Providers Care Business Director Name Role Phone Unavailable Primary Care Provider Unavailabl e Encounter Details Date Type Department Care Team (Late st Contact Info) Description 09/12/2002 Historical Ophthalmology RST OPH Yvon Davidson M.D. Social History Tobacco Use Types Packs/Day Years Used Date Smoking Tobacco: Never Assessed Sex and Gender Information Value Date Recorded Sex Assigned at Male 12/12/2022 9:16 AM CDT Gender Identity Male 05/26/2017 2:12 PM DEPUTY CORONER INVESTIGATOR Sexual Orientation Straight 05/26/2017 2: 12 PM DEPUTY CORONER INVESTIGATOR documented as of this encounter Progress Notes * Yvon Davidson M.D. - 09/12/2002 12:00 AM CST Eye General CHIEF COMPLAINT vision evaluation HISTORY OF PRESENT ILLNESS This is a 7 year 1 month old male here for a vision evaluation . He has spina bifida and was born at 38 weeks. His glasses seems to help with the crossing but does at times see eyes alternate. He hasdone patching in the past. He pulls books close to face. IMPRESSION / REPORT / PLAN #1 hydrocephalus, controlled #2 partially accommodative esotropia continue with present glasses, recheck 6 mos DIAGNOSIS #1 hydrocephalus, controlled #2 partially accommodative esotropia CD Reports - [facility] Id: [id number] Status: Fnl documented in this encounter Plan of Treatment Not on file documented as of this encounter Visit Diagnoses Not on filedocumented in this encounter
--- OUTSIDE RECORDS SUMMARY | 2024-01-13 16:19 | XMS_ITS | Encounter Summary ---
Author Organization [facility] Address [address], [place] [address] Care Team Providers Care Setter Induction Heating Equipment Name Role Phone Rob Tillman MD Primary Care Provider + [phone] Encounter Details Date Type Department Care Team (Late st Contact Info) Description 06/12/2019 Consent for Procedure/Treatme nt [facility] INFORMED CONSENT FOR SLEEP/AUDIO/VIDEO Social History Tobacco Use Types Packs/Day Years Used Date Smoking Tobacco: Never Smokeless Tobacco: Never Alcohol Use Standard Drinks/Week Comments Yes 0 (1 standard drink = 0.6 oz pur e alcohol) occasional Sex and Gender Information Value Date Recorded Sex Assigned at Male 07/12/2021 3:57 PM CORPORATE TRAINING MANAGER Gender Identity Male 07/12/2021 3:57 PM CORPORATE TRAINING MANAGER Sexual Orientation Straight 07/12/2021 3: 57 PM CORPORATE TRAINING MANAGER documented as of this encounter Plan of Treatment Not on file documented as of this encounter Visit Diagnoses Not on filedocumented in this encounter Care Teams Setter Induction Heating Equipment Relationship Specialty Start Date End Date Rob Tillman MD [address] [place] [address] PCP - General Physical Medicine and Rehabilitation 08/01/19 01/13/23 documented as of this encounter
--- OUTSIDE RECORDS SUMMARY | 2024-01-13 16:19 | XMS_ITS | Referral Summary ---
Author Organization [facility] Address [address] [place] [address] Care Team Providers Care Director Post Name Role Phone Sadie Peter PA-C Primary Care Provider Safia Mcclellan MD Unavailable [phone] Sadie Cruz PA-C Unavailable Allergies Active Allergy Reactions Criticality Noted Date Comments Adhesive Tape Rash Low 08/24/2022 Latex Anaphylaxis,Unknown High 1996 Mold Shortness Of Breath High 08/24/2022 Molds & Smuts Other (See Comments) 06/06/2012 [place] mold- Respiratory Distress Pollen Extract Difficulty breathing [...] Take 5,000 Units by mouth daily Active [place]-3 Fish Oil 500 MG capsule Take 1 [...] 7,1996,09/15 Td (Adult), Adsorbed 02/14/2014,10/30/2008 Varicella 11/07/2009,02/13/1998 Social History Tobacco Use Types Packs/Day Years [...] Sex Assigned at Male 08/17/2022 9:54 AM TELECOM NETWORK MANAGER Gender Identity Male 08/17/2022 9:54 AM TELECOM NETWORK MANAGER Sexual Orientation Straight 08/17/2022 9: 54 AM TELECOM NETWORK MANAGER Last Filed Vital Signs Vital Sign Reading Time Taken Comments Blood Pressure 126/85 08/24/2022 10:52 AM TELECOM NETWORK MANAGER Pulse 90 08/24/2022 10:52 AM TELECOM NETWORK MANAGER Temperature 37.4 ??C (99.4 ??F) 08/24/2022 10:[address] Respiratory Rate 16 08/24/2022 10:52 AM TELECOM NETWORK MANAGER Oxygen Saturation 99% 08/24/2022 10:52 AM TELECOM NETWORK MANAGER Inhaled Oxygen Concentration - - Weight 67 kg (147 lb 11.2 oz) 08/24/2022 10:52 A M TELECOM NETWORK MANAGER Height 154.9 cm (5' 1) 08/24/2022 10:52 AM TELECOM NETWORK MANAGER Body Mass Index 27.91 08/24/2022 10:52 AM TELECOM NETWORK MANAGER Plan of Treatment Not on file Care Teams Director Post Relationship Specialty Start Date End Date Sadie Peter PA-C [facility] [address] [place] [address] PCP - General Physician Neighborhood Coordinator 06/16/22 Safia Mcclellan MD [address] [facility] [address] [place] [address] Hospitalist Endocrinology, Diabetes, and Metabolism 06/16/22 Sadie Cruz PA-C [address] [place], [place] [address] Assigned Endocrinology Provider 07/30/23
--- OUTSIDE RECORDS SUMMARY | 2024-01-13 16:19 | XMS_ITS | Encounter Summary ---
Author Organization [facility] Address [address] [place] [address] Care Team Providers Care Optical Systems Engineer Name Role Phone Rob Tillman MD Primary Care Provider + [phone] Encounter Details Date Type Department Care Team (Late st Contact Info) Description 04/05/2017 Scanned History External to Transferred Record, Provider [facility] Social History Tobacco Use Types Packs/Day Years Used Date Smoking Tobacco: Never Assessed Sex and Gender Information Value Date Recorded Sex Assigned at Male 07/12/2021 3:57 PM FIRE PATROLLER Gender Identity Male 07/12/2021 3:57 PM FIRE PATROLLER Sexual Orientation Straight 07/12/2021 3: 57 PM FIRE PATROLLER documented as of this encounter Plan of Treatment Not on file documented as of this encounter Visit Diagnoses Not on filedocumented in this encounter Care Teams Optical Systems Engineer Relationship Specialty Start Date End Date Rob Tillman MD [address] [place] [address] PCP - General Physical Medicine and Rehabilitation 08/01/19 01/13/23 documented as of this encounter
--- OUTSIDE RECORDS SUMMARY | 2024-01-13 16:19 | XMS_ITS | Encounter Summary ---
Author Organization [facility] Address [address] [place] [address] Care Team Providers Care Back Roller Name Role Phone Rob Tillman MD Primary Care Provider + [phone] Encounter Details Date Type Department Care Team (Late st Contact Info) Description 04/23/2018 Scanned History Security Contact - Elina Bal Transferred Record, Provider [facility] Social History Tobacco Use Types Packs/Day Years Used Date Smoking Tobacco: Never Smokeless Tobacco: Never Alcohol Use Standard Drinks/Week Comments Yes 0 (1 standard drink = 0.6 oz pur e alcohol) Sex and Gender Information Value Date Recorded Sex Assigned at Male 07/12/2021 3:[address] SUPERINTENDENT Gender Identity Male 07/12/2021 3:[address] SUPERINTENDENT Sexual Orientation Straight 07/12/2021 3: [address] SUPERINTENDENT documented as of this encounter Plan of Treatment Not on file documented as of this encounter Visit Diagnoses Not on filedocumented in this encounter Care Teams Back Roller Relationship Specialty Start Date End Date Rob Tillman MD [address] [place] [address] PCP - General Physical Medicine and Rehabilitation 08/01/19 01/13/23 documented as of this encounter
--- OUTSIDE RECORDS SUMMARY | 2024-01-13 16:19 | XMS_ITS | Continuity of Care Document ---
Author Organization [facility] Address [address] [address] [place] [address] Phone Care Team Providers Care Wreath Machine Tender Name Role Phone Roni Christensen MD Unavailable Unavailable Allergies, Adverse Reactions, Alerts Substance Reaction Status Criticality adhesive tape Rash Active No Information Procedures Procedure Date New Level 3 Advance Directives Directive Yes / No Effective Date File Name No Information Encounters Encounter Description Practice Location Reason(s) For Visit Diagnoses Date Provider Providers Copied on Encounter New Level 3 [facility], [address] [address], [place], [place], [id number], [place] tel:[phone] [facility] GI Symptoms or Concerns (chief complaint) Neurogenic bowelChronic constipation Fermin Tamayo. [address] [address], [place], [place], [id number], [place]. tel:[phone] Referring Provider: [place]ier[place] T, [address] [place], [address]. tel:[phone] Family History Family Member Type Diagnosis Age [...] ; Source: Other Registry Influenza, injectable, Madin Monica Canine Kidney, preservative free, quadrivalent administered Note: [...] ional interface ; Source: Other Registry Novel [id number], all formulations administered Note: [facility] bi-direct ional [...] Registry Payers Payer name Insurance type Covered libertarian ID Authoriza tion(s) [facility] [id number] [facility] 16 [id number] Social History Type Description Quantity Date Captured [...]
--- OUTSIDE RECORDS SUMMARY | 2024-01-13 16:19 | XMS_ITS | Encounter Summary ---
Author Organization [facility] Address [address] [place] [address] Care Team Providers Care Electrical Continuity Tester Name Role Phone Unavailable Primary Care Provider Unavailabl e Encounter Details Date Type Department Care Team (Late st Contact Info) Description 10/05/2003 Historical Ophthalmology RST OPH Yvon Davidson M.D. Social History Tobacco Use Types Packs/Day Years Used Date Smoking Tobacco: Never Assessed Sex and Gender Information Value Date Recorded Sex Assigned at Male 12/12/2022 9:16 AM CDT Gender Identity Male 05/26/2017 2:12 PM FUNCTIONAL SKILLS TUTOR Sexual Orientation Straight 05/26/2017 2: 12 PM FUNCTIONAL SKILLS TUTOR documented as of this encounter Progress Notes * Yvon Davidson M.D. - 10/05/2003 12:00 AM CDT Eye General CHIEF COMPLAINT recheck HISTORY OF PRESENT ILLNESS patient is a 8 year 2 month old male with partially accomodative ET.here for recheck. Blurred vision past normal reading distance. Moves things around as he reads IMPRESSION / REPORT / PLAN #1 hydrocephalus controlled #2 partially accommodative esotropia continue with present glasses, recheck 9 mos, sooner prn DIAGNOSIS #1 hydrocephalus #2 partially accommodative esotropia CDM Reports - [facility] Id: [id number] Status: Fnl documented in this encounter Plan of Treatment Not on file documented as of this encounter Visit Diagnoses Not on filedocumented in this encounter
--- OUTSIDE RECORDS SUMMARY | 2024-01-13 16:19 | XMS_ITS | Encounter Summary ---
Author Organization [facility] Address [address] [place] [address] Care Team Providers Care Final Armature Tester Name Role Phone Unavailable Primary Care Provider Unavailabl e Encounter Details Date Type Department Care Team (Late st Contact Info) Description 12/19/2003 Historical Ophthalmology RST OPH Yvon Davidson M.D. Social History Tobacco Use Types Packs/Day Years Used Date Smoking Tobacco: Never Assessed Sex and Gender Information Value Date Recorded Sex Assigned at Male 12/12/2022 9:16 AM CDT Gender Identity Male 05/26/2017 2:12 PM SERVICE ORDER DISPATCHER Sexual Orientation Straight 05/26/2017 2: 12 PM SERVICE ORDER DISPATCHER documented as of this encounter Progress Notes * Yvon Davidson M.D. - 12/19/2003 12:00 AM CDT Eye General CHIEF COMPLAINT 2.5 month recheck- hydrocephalus(controlled), partially accommodative esotropia HISTORY OF PRESENT ILLNESS 8 year 5 month old male returns for follow up. Mom states he got new glasses yesterday. Today she notes the left eye is a little in with his new lens. He has not been having headaches. He has also complained of seeing a rainbow on the bottom of his lens. IMPRESSION / REPORT / PLAN #1 partially accommodative esotropia no change, continue with present glasses there is a multicolored reflection( prismatic) from front surface of his glasses, advised mother tocheck with beekeeper recheck 1 yr, sooner prn DIAGNOSIS #1 partially accommodative esotropia CDM Reports - [facility] Id: [id number] Status: Fnl documented in this encounter Plan of Treatment Not on file documented as of this encounter Visit Diagnoses Not on filedocumented in this encounter
== END 2024-01-13 16:16 | disposition home or self-care (01) ==
LOC: LKVREF 16:15
PROVIDERS: PCP Family Medicine; Visit Provider Nurse Practitioner Family
DX: R53.83 Other fatigue (principal); Z13.29 Encounter for screening for other suspected endocrine disorder
CPT/HCPCS: 84443

== ENCOUNTER 2024-01-20 14:39 | Outpatient (CLI) | payer OTHER, SELFPAY ==
--- OUTSIDE RECORDS SUMMARY | 2024-01-20 14:43 | XMS_ITS | Encounter Summary ---
Author Organization [facility] Address [address] [place] [address] Care Team Providers Care Media Marketing Specialist Name Role Phone Unavailable Primary Care Provider Unavailabl e Encounter Details Date Type Department Care Team (Late st Contact Info) Description 11/24/2006 Historical Ophthalmology RST OPH Dale Mccallum M.D. [address] [place] [address] Social History Tobacco Use Types Packs/Day Years Used Date Smoking Tobacco: Never Assessed Sex and Gender Information Value Date Recorded Sex Assigned at Male 12/12/2022 9:16 AM CDT Gender Identity Male 05/26/2017 2:12 PM BUHR DRESSER Sexual Orientation Straight 05/26/2017 2: 12 PM BUHR DRESSER documented as of this encounter Progress Notes [...] both eyes CDM Reports - [facility] Id: [id number] Status: Fnl documented in this encounter Plan of Treatment Not on file documented as of this encounter Visit Diagnoses Not on filedocumented in this encounter
--- OUTSIDE RECORDS SUMMARY | 2024-01-20 14:43 | XMS_ITS | Encounter Summary ---
Author Organization [facility] Address [address] [place] [address] Care Team Providers Care Parts Counter Associate Name Role Phone Unavailable Primary Care Provider Unavailabl e Encounter Details Date Type Department Care Team (Late st Contact Info) Description 01/13/2008 Historical Ophthalmology RST OPH Hever Villanueva M.D. Social History Tobacco Use Types Packs/Day Years Used Date Smoking Tobacco: Never Assessed Sex and Gender Information Value Date Recorded Sex Assigned at Male 12/12/2022 9:16 AM CDT Gender Identity Male 05/26/2017 2:12 PM MANDREL PULLER Sexual Orientation Straight 05/26/2017 2: 12 PM MANDREL PULLER documented as of this encounter Progress Notes * Hever Villanueva M.D. - 01/13/2008 9:27 AM CDT [...] shunt malfunction CDM Reports - [facility] Id: [id number] Status: Fnl documented in this encounter Plan of Treatment Not on file documented as of this encounter Visit Diagnoses Not on filedocumented in this encounter
--- OUTSIDE RECORDS SUMMARY | 2024-01-20 14:43 | XMS_ITS | Encounter Summary ---
Author Organization [facility] Address [address] [place] [address] Care Team Providers Care Baster Hand Name Role Phone Unavailable Primary Care Provider Unavailabl e Encounter Details Date Type Department Care Team (Late st Contact Info) Description 11/17/2010 Historical Ophthalmology RST OPH Hever Villanueva M.D. Social History Tobacco Use Types Packs/Day Years Used Date Smoking Tobacco: Never Assessed Sex and Gender Information Value Date Recorded Sex Assigned at Male 12/12/2022 9:16 AM CDT Gender Identity Male 05/26/2017 2:12 PM CAR CLEANER Sexual Orientation Straight 05/26/2017 2: 12 PM CAR CLEANER documented as of this encounter Progress Notes [...] SCL. RTC 6 months. CDM Reports - [email or web address] Id: [id number] Status: Fnl documented in this encounter Plan of Treatment Not on file documented as of this encounter Visit Diagnoses Not on filedocumented in this encounter
--- OUTSIDE RECORDS SUMMARY | 2024-01-20 14:43 | XMS_ITS | Encounter Summary ---
Author Organization [facility] Address [address] [place] [address] Care Team Providers Care Orthophotography Technician Name Role Phone Unavailable Primary Care [...] CDT Gender Identity Male 05/26/2017 2:12 PM CEMENT KILN OPERATOR Sexual Orientation Straight 05/26/2017 2: 12 PM CEMENT KILN OPERATOR documented as of this encounter Progress [...] the procedure with the patient (or legal health and safety representative and others present during the discussion). The patient understands and wishes to proceed with the procedure. DIAGNOSIS #1 Consecutive exotropia #2 Nystagmus [facility] Id: [id number] Status: Fnl documented in this encounter Plan of Treatment Not on file documented as of this encounter Visit Diagnoses Not on filedocumented in this encounter
--- OUTSIDE RECORDS SUMMARY | 2024-01-20 14:43 | XMS_ITS | Encounter Summary ---
Author Organization [facility] Address [address] [place] [address] Care Team Providers Care Director Of Learning Name Role Phone Unavailable Primary Care Provider Unavailabl e Encounter Details Date Type Department Care Team (Late st Contact Info) Description 08/27/2005 Historical Ophthalmology RST OPH Yvon Davidson M.D. Social History Tobacco Use Types Packs/Day Years Used Date Smoking Tobacco: Never Assessed Sex and Gender Information Value Date Recorded Sex Assigned at Male 12/12/2022 9:16 AM CDT Gender Identity Male 05/26/2017 2:12 PM ACTIVITIES MANAGER Sexual Orientation Straight 05/26/2017 2: 12 PM ACTIVITIES MANAGER documented as of this encounter Progress [...] both eyes CDM Reports - [facility] Id: [id number] Status: Fnl documented in this encounter Plan of Treatment Not on file documented as of this encounter Visit Diagnoses Not on filedocumented in this encounter
--- OUTSIDE RECORDS SUMMARY | 2024-01-20 14:43 | XMS_ITS | Encounter Summary ---
Author Organization [facility] Address [address] [place] [address] Care Team Providers Care Blaster Helper Name Role Phone Unavailable Primary Care Provider Unavailabl e Encounter Details Date Type Department Care Team (Late st Contact Info) Description 04/28/2010 Historical Ophthalmology RST OPH Hever Villanueva M.D. Social History Tobacco Use Types Packs/Day Years Used Date Smoking Tobacco: Never Assessed Sex and Gender Information Value Date Recorded Sex Assigned at Male 12/12/2022 9:16 AM CDT Gender Identity Male 05/26/2017 2:12 PM MEDICAL LAB TECHNOLOGIST Sexual Orientation Straight 05/26/2017 2: 12 PM MEDICAL LAB TECHNOLOGIST documented as of this encounter Progress Notes [...] fixates monocularly CDM Reports - [facility] Id: [id number] Status: Fnl documented in this encounter Plan of Treatment Not on file documented as of this encounter Visit Diagnoses Not on filedocumented in this encounter
--- OUTSIDE RECORDS SUMMARY | 2024-01-20 14:43 | XMS_ITS | Encounter Summary ---
Author Organization [facility] Address [address] [place] [address] Care Team Providers Care Piano Case Maker Name Role Phone Unavailable Primary Care Provider Unavailabl e Encounter Details Date Type Department Care Team (Late st Contact Info) Description 08/26/2004 Historical Ophthalmology RST OPH Yvon Davidson M.D. Social History Tobacco Use Types Packs/Day Years Used Date Smoking Tobacco: Never Assessed Sex and Gender Information Value Date Recorded Sex Assigned at Male 12/12/2022 9:16 AM CDT Gender Identity Male 05/26/2017 2:12 PM CONVENIENCE RECYCLE CENTER TECH Sexual Orientation Straight 05/26/2017 2: 12 PM CONVENIENCE RECYCLE CENTER TECH documented as of this encounter Progress Notes [...] latent nystagmus CDM Reports - [facility]YEGEN Id: [id number] Status: Fnl documented in this encounter Plan of Treatment Not on file documented as of this encounter Visit Diagnoses Not on filedocumented in this encounter
--- OUTSIDE RECORDS SUMMARY | 2024-01-20 14:43 | XMS_ITS | Encounter Summary ---
Author Organization [facility] Address [address] [place] [address] Care Team Providers Care Rn Birthing Name Role Phone Unavailable Primary Care Provider Unavailabl e Encounter Details Date Type Department Care Team (Late st Contact Info) Description 07/13/2013 Historical Ophthalmology RST OPH Hever Villanueva M.D. Social History Tobacco Use Types Packs/Day Years Used Date Smoking Tobacco: Never Assessed Sex and Gender Information Value Date Recorded Sex Assigned at Male 12/12/2022 9:16 AM CDT Gender Identity Male 05/26/2017 2:12 PM FRANKFURTER INSPECTOR Sexual Orientation Straight 05/26/2017 2: 12 PM FRANKFURTER INSPECTOR documented as of this encounter Progress Notes [...] to computer. #8 Astigmatism CDM Reports - [facility] Id: [id number] Status: Fnl documented in this encounter Plan of Treatment Not on file documented as of this encounter Visit Diagnoses Not on filedocumented in this encounter
--- OUTSIDE RECORDS SUMMARY | 2024-01-20 14:43 | XMS_ITS | Encounter Summary ---
Author Organization [facility] Address [address] [place] [address] Care Team Providers Care Dredge Engineer Name Role Phone Unavailable Primary Care Provider Unavailabl e Encounter Details Date Type Department Care Team (Late st Contact Info) Description 09/12/2002 Historical Ophthalmology RST OPH Yvon Davidson M.D. Social History Tobacco Use Types Packs/Day Years Used Date Smoking Tobacco: Never Assessed Sex and Gender Information Value Date Recorded Sex Assigned at Male 12/12/2022 9:16 AM CDT Gender Identity Male 05/26/2017 2:12 PM MORTGAGE BANKER Sexual Orientation Straight 05/26/2017 2: 12 PM MORTGAGE BANKER documented as of this encounter Progress Notes [...] accommodative esotropia CD Reports - EYEGEN Id: [id number] Status: Fnl documented in this encounter Plan of Treatment Not on file documented as of this encounter Visit Diagnoses Not on filedocumented in this encounter
--- OUTSIDE RECORDS SUMMARY | 2024-01-20 14:43 | XMS_ITS | Encounter Summary ---
Author Organization [facility] Address [address] [place] [address] Care Team Providers Care Senior Solutions Engineer Name Role Phone Unavailable Primary Care [...] CDT Gender Identity Male 05/26/2017 2:12 PM CHAIRMAN Sexual Orientation Straight 05/26/2017 2: 12 PM CHAIRMAN documented as of this encounter Progress Notes [...] the procedure with the patient (or legal architectural representative and others present during the discussion). The patient understands and wishesto proceed with the procedure. Recess both MR 4 mm. 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
--- OUTSIDE RECORDS SUMMARY | 2024-01-20 14:43 | XMS_ITS | Encounter Summary ---
Author Organization [facility] Address [address] [place] [address] Care Team Providers Care Stock Repairer Name Role Phone Unavailable Primary Care Provider Unavailabl e Encounter Details Date Type Department Care Team (Late st Contact Info) Description 06/30/2016 Historical Ophthalmology RST OPH Hever Villanueva M.D. Social History Tobacco Use Types Packs/Day Years Used Date Smoking Tobacco: Never Assessed Sex and Gender Information Value Date Recorded Sex Assigned at Male 12/12/2022 9:16 AM CDT Gender Identity Male 05/26/2017 2:12 PM RAT CULTURIST Sexual Orientation Straight 05/26/2017 2: 12 PM RAT CULTURIST documented as of this encounter Progress Notes [...] to computer. #8 Astigmatism CDM Reports - [facility] Id: [id number] Status: Fnl documented in this encounter Plan of Treatment Not on file documented as of this encounter Visit Diagnoses Not on filedocumented in this encounter Additional Health Concerns Assessment Noted Time PHQ-9 Depression Total Score: 8 10/24/19 15 11:06 AM CDT documented as of this encounter
--- OUTSIDE RECORDS SUMMARY | 2024-01-20 14:43 | XMS_ITS | Clinical Summary ---
Author Organization [facility] Address [address] [place] [address] Care Team Providers Care Manager Branch Name Role Phone Sadie Peter PA-C Primary Care Provider Safia Mcclellan MD Unavailable [phone] Sadie Cruz PA-C Unavailable Allergies Active Allergy Reactions Criticality Noted Date Comments Adhesive Tape Rash Low 08/24/2022 Latex Anaphylaxis,Unknown High 1996 Mold Shortness Of Breath High 08/24/2022 Molds & Smuts Other (See Comments) 06/06/2012 Calcium mold- Respiratory Distress Pollen Extract Difficulty breathing [...] Take 5,000 Units by mouth daily Active [place]-3 Fish Oil 500 MG capsule Take 1 [...] Sex Assigned at Male 08/17/2022 9:54 AM FORM COVERER Gender Identity Male 08/17/2022 9:54 AM FORM COVERER Sexual Orientation Straight 08/17/2022 9: 54 AM FORM COVERER Last Filed Vital Signs Vital Sign Reading Time Taken Comments Blood Pressure 126/85 08/24/2022 10:52 AM FORM COVERER Pulse 90 08/24/2022 10:52 AM FORM COVERER Temperature 37.4 ??C (99.4 ??F) 08/24/2022 10:[address] Respiratory Rate 16 08/24/2022 10:52 AM FORM COVERER Oxygen Saturation 99% 08/24/2022 10:52 AM FORM COVERER Inhaled Oxygen Concentration - - Weight 67 kg (147 lb 11.2 oz) 08/24/2022 10:52 A M FORM COVERER Height 154.9 cm (5' 1) 08/24/2022 10:52 AM FORM COVERER Body Mass Index 27.91 08/24/2022 10:52 AM FORM COVERER Plan of Treatment Health Maintenance Due Date [...] age to complete this topic Care Teams Manager Branch Relationship Specialty Start Date End Date Sadie Peter PA-C [facility] [address] [place] [address] PCP - General Physician Bus Greaser 06/16/22 Safia Mcclellan MD [address] [facility] [address] [place] [address] Hospitalist Endocrinology, Diabetes, and Metabolism 06/16/22 Sadie Cruz PA-C [address] [place], [place] [address] Assigned Endocrinology Provider 07/30/23
--- OUTSIDE RECORDS SUMMARY | 2024-01-20 14:43 | XMS_ITS | Encounter Summary ---
Author Organization [facility] Address [address] [place] [address] Care Team Providers Care Sql Server Architect Name Role Phone Unavailable Primary Care Provider Unavailabl e Encounter Details Date Type Department Care Team (Late st Contact Info) Description 06/02/2012 Historical Ophthalmology RST OPH Hever Villanueva M.D. Social History Tobacco Use Types Packs/Day Years Used Date Smoking Tobacco: Never Assessed Sex and Gender Information Value Date Recorded Sex Assigned at Male 12/12/2022 9:16 AM CDT Gender Identity Male 05/26/2017 2:12 PM PBX WIRE CHIEF Sexual Orientation Straight 05/26/2017 2: 12 PM PBX WIRE CHIEF documented as of this encounter Progress Notes [...] fixates monocularly CDM Reports - EYEGEN Id: [id number] Status: Fnl documented in this encounter Plan of Treatment Not on file documented as of this encounter Visit Diagnoses Not on filedocumented in this encounter
--- OUTSIDE RECORDS SUMMARY | 2024-01-20 14:43 | XMS_ITS | Clinical Summary ---
Author Organization [facility] Address [address] [place] [address] Care Team Providers Care Hair Assistant Name Role Phone Unavailable Primary Care Provider Unavailabl e Source Comments Patient records contain information from all sites at [facility]. For routine questions regarding patient records, call [phone] during business hours, M-F 8:00 AM - 5:00 PM Central Time. Record requests for emergency care only can be directed to [phone] at any time.[facility] Allergies Active Allergy Reactions Criticality Noted Date Comments Adhesive Tape-Silicones Rash 04/13/2013 Latex Other (see comments) 09/12/2002 Precaution Mold Other (see comments) 06/06/2012 [place] mold- Respiratory Distress Pollen Extracts Shortness of [...] your living situation today? I have a [facility] place to live 03/25/2023 Sex and Gender Information Value Date Recorded Sex Assigned at Male 12/12/2022 9:16 AM CDT Gender Identity Male 05/26/2017 2:12 PM INTERNET AND E BUSINESS PROJECT MANAGER Sexual Orientation Straight 05/26/2017 2: 12 PM INTERNET AND E BUSINESS PROJECT MANAGER Last Filed Vital Signs Vital Sign Reading Time Taken Comments Blood Pressure 134/73 04/01/2023 1:29 PM CDT Pulse 93 04/01/2023 1:29 PM CDT Temperature 36.4 ??C (97.6 ??F) 04/01/2023 1:29 PM CD T Respiratory Rate 16 06/20/2014 8:19 AM INTERNET AND E BUSINESS PROJECT MANAGER Oxygen Saturation - - Inhaled Oxygen [...] history exists Medical Devices Implanted Type Area Manager Recruitment Device Identifier Shelf Expiration Date Model / Serial / Lot Conversions - Default Historical Implant Device Implanted:12/26 (Quantity not on file) CSF Management Device Description:Device Status Te xt - CSF Shunt/Valve. MEDICAL CLAIMS REPRESENTATIVE Shunt. Small Frag-Screw Jerad 3.5x20 - Dominguez [...] - HARDWARE-7600. R M-Plate Inter P Slot [id number] - Dominguez [id number] Implanted:Qty: 1 on 08/07/2003 Hardware e.g. pins/screws/ rods George and Nephew Description:Device Manufactu rer - George&Nephew. Device Status Text - HARDWARE-7668. Standard-Screw Jerad 4.5 X 46 - Dom[place]uez [id number] Implanted:Qty: 1 on 04/21/2007 Hardware e.g. pins/screws/ rods Depuy Synthes Description:Device Manufactu rer - Synthes. Device Status Text - HARDWARE-48337. Standard-Screw Jerad 4.5 X 30 - Dominguez [id number] Implanted:Qty: 3 on 04/21/2007 Hardware e.g. pins/screws/ rods Depuy Synthes Description:Device Manufactu rer - Synthes. Device Status Text - HARDWARE-22291. Lc Dc-Plate Ss Narr. 4.5x 8h - Dominguez [id number] Implanted:Qty: 1 on 04/21/2007 Hardware e.g. pins/screws/ rods Depuy Synthes Description:Device Manufactu rer - Synthes. Device Status Text - HARDWARE-8528. K-Wire 2.0 X 150 - Dominguez [id number] Implanted:Qty: 1 on 04/21/2007 Hardware e.g. pins/screws/ rods Depuy Synthes Description:Device Manufactu rer - Synthes. Device Status Text - HARDWARE-7802. Standard-Screw Jerad 4.5 X 36 - Dominguez [id number] Implanted:Qty: 3 on 04/21/2007 Hardware e.g. pins/screws/ rods Depuy Synthes Description:Device Manufactu rer - Synthes. Device Status Text - HARDWARE-87922. Standard-Screw Jerad 4.5 X 32 - Dominguez [id number] Implanted:Qty: 1 on 04/21/2007 Hardware e.g. pins/screws/ rods Depuy Synthes Description:Device Manufactu rer - Synthes. Device Status Text - HARDWARE-11662. Standard-Screw Jerad 4.5 X 34 - Dom[place]uez [id number] Implanted:Qty: 1 on 04/21/2007 Hardware e.g. pins/screws/ rods Depuy Synthes Description:Device Manufactu rer - Synthes. Device Status Text - HARDWARE-75908. Staple Cartridge-3m 13 X 10 - Dominguez [id number] Implanted:Qty: 1 on 07/23/2008 Hardware e.g. pins/screws/ rods 3M Description:Device Manufactu rer - 3M. Device Status Text - HARDWARE-7241. K-Wire-Ss 4 Smooth .062 - Dominguez [id number] Implanted:Qty: 2 on 07/23/2008 Hardware e.g. pins/screws/ rods Lititz Description:Device Manufactu rer - Lititz Che.. Device Status Text - HARDWARE-871. Pin Pérez Smooth Single End 5 64 - Dominguez [id number] Implanted:Qty: 1 on 07/23/2008 Hardware e.g. pins/screws/ rods Mony Description:Device Manufactu rer - Mony Che.. Device Status Text - HARDWARE-9289. Conversions - Default Historical Implant Device Implanted:12/26 (Quantity not on file) Hardware e.g. pins/screws/ rods Left: Leg Description:Body Location - Thigh L. Device Status Text - Hardware. Plate in Proximal Left Femur. Cath Powerport Mri W 8.0fr - Dominguez [id number] Implanted:Qty: 1 on 03/23/2013 Implanted Port Single Lumen C.R.Bard Description:Device Manufactu [facility] Bard Patient Care Division. Device Status Text - IVAD/PORT-989675. [facility] Data - ][id number]. Duragen Suturable 2x2 - Dominguez [id number] Implanted:Qty: 1 on 02/24/2006 Mesh or Patch Other/Legacy - See Implant Description Integra Description:Device Manufactu rer - IntegrInnovari. Body Location - Other. Not Applicable. Device Status Text - MESHPATCH-398748. Patch Dura-Guard Sn 4x 4 - Dominguez [id number] Implanted:Qty: 1 on 06/18/2014 Mesh or Patch Other/Legacy - See Implant Description Synovis Description:Device Manufactu rer - Synovis. Body Location - Other. Not Applicable. Device Status Text - MESHPATCH-522457. Legacy Screw Set Ti Breakoff - Dom[place]uez [id number] Implanted:Qty: 9 on 06/18/2009 Spine Implant Medtronic Description:Device Manufactu rer - Medtronic Sofamor Danek. Device Status Text - SPINE IMP-93744. Legacy Screw Fixed Ang 6.5 X 35 Ti - Dominguez [id number] Implanted:Qty: 1 on 06/18/2009 Spine Implant Medtronic Description:Device Manufactu rer - Medtronic Sofamor Danek. Device Status Text - SPINE IMP-93909. Legacy Screw Fixed Angled 7.5 X 45 Ti - Dominguez [id number] Implanted:Qty: 1 on 06/18/2009 Spine Implant Medtronic Description:Device Manufactu rer - Medtronic Sofamor Danek. Device Status Text - SPINE IMP-92200. Legacy Staple Ti 15mm - Dominguez [id number] Implanted:Qty: 4 on 06/18/2009 Spine Implant Medtronic Description:Device Manufactu rer - Medtronic Sofamor Danek. Device Status Text - SPINE IMP-70573. Legacy Staple Ti 13mm - Dominguez [id number] Implanted:Qty: 3 on 06/18/2009 Spine Implant Medtronic Description:Device Manufactu rer - Medtronic Sofamor Danek. Device Status Text - SPINE IMP-16439. Tsrh-Phillip Ti 1 4 Flex L51cm - Dom[place]uez [id number] Implanted:Qty: 1 on 06/18/2009 Spine Implant Medtronic Description:Device Manufactu rer - Medtronic [employer] Inc. Device Status Text - SPINE IMP-18435. Legacy Screw Fixed Angled 7.5 X 40 Ti - Dominguez [id number] Implanted:Qty: 1 on 06/18/2009 Spine Implant Medtronic Description:Device Manufactu rer - Medtronic Sofamor Danek. Device Status Text - SPINE IMP-05375. Legacy Screw Fixed Ang 6.5 X 30 Ti - Dominguez [id number] Implanted:Qty: 3 on 06/18/2009 Spine Implant Medtronic Description:Device Manufactu rer - Medtronic Sofamor Danek. Device Status Text - SPINE IMP-33135. Legacy Screw Fixed Ang 6.5 X 40 Ti - Dom[place]uez [id number] Implanted:Qty: 3 on 06/18/2009 Spine Implant Medtronic Description:Device Manufactu rer - Medtronic Sofamor Danek. Device Status Text - SPINE IMP-20430. Conversions - Default Historical Implant Device Implanted:12/26 (Quantity not on file) Spine Implant Other/Legacy - See Implant Description Description:Body Location - Generalize. T8-L4. Device Status Text - Spine Implant. Spine Stabilizing Instrumentation. [address] [place] [phone]
--- OUTSIDE RECORDS SUMMARY | 2024-01-20 14:43 | XMS_ITS ---
Author Organization [facility] Address [address] [place] [address] Care Team Providers Care Cloth Booker Name Role Phone Unavailable Unavailable Unavailable Surgery Details Not on file Complications Check Surgery Details section. Procedure Estimated Blood Loss Check Surgery Details section. Procedure Findings Check Surgery Details section. Procedure Specimens Taken Check Surgery Details section.
--- OUTSIDE RECORDS SUMMARY | 2024-01-20 14:43 | XMS_ITS | Referral Summary ---
Author Organization [facility] Address [address] [place] [address] Care Team Providers Care Hand Spring Former Name Role Phone Sadie Peter PA-C Primary Care Provider Safia Mcclellan MD Unavailable [phone] Sadie Cruz PA-C Unavailable Allergies Active Allergy Reactions Criticality Noted Date Comments Adhesive Tape Rash Low 08/24/2022 Latex Anaphylaxis,Unknown High 1996 Mold Shortness Of Breath High 08/24/2022 Molds & Smuts Other (See Comments) 06/06/2012 [place] mold- Respiratory Distress Pollen Extract Difficulty breathing [...] Take 5,000 Units by mouth daily Active [place]-3 Fish Oil 500 MG capsule Take 1 [...] Sex Assigned at Male 08/17/2022 9:54 AM CARDIOTHORACIC PHYSIOTHERAPIST Gender Identity Male 08/17/2022 9:54 AM CARDIOTHORACIC PHYSIOTHERAPIST Sexual Orientation Straight 08/17/2022 9: 54 AM CARDIOTHORACIC PHYSIOTHERAPIST Last Filed Vital Signs Vital Sign Reading Time Taken Comments Blood Pressure 126/85 08/24/2022 10:52 AM CARDIOTHORACIC PHYSIOTHERAPIST Pulse 90 08/24/2022 10:52 AM CARDIOTHORACIC PHYSIOTHERAPIST Temperature 37.4 ??C (99.4 ??F) 08/24/2022 10:[address] Respiratory Rate 16 08/24/2022 10:52 AM CARDIOTHORACIC PHYSIOTHERAPIST Oxygen Saturation 99% 08/24/2022 10:52 AM CARDIOTHORACIC PHYSIOTHERAPIST Inhaled Oxygen Concentration - - Weight 67 kg (147 lb 11.2 oz) 08/24/2022 10:52 A M CARDIOTHORACIC PHYSIOTHERAPIST Height 154.9 cm (5' 1) 08/24/2022 10:52 AM CARDIOTHORACIC PHYSIOTHERAPIST Body Mass Index 27.91 08/24/2022 10:52 AM CARDIOTHORACIC PHYSIOTHERAPIST Plan of Treatment Not on file Care Teams Hand Spring Former Relationship Specialty Start Date End Date Sadie Peter PA-C [facility] [address] [place] [address] PCP - General Physician Hand Sizer 06/16/22 Safia Mcclellan MD [address] [facility] [address] [place] [address] Hospitalist Endocrinology, Diabetes, and Metabolism 06/16/22 Sadie Cruz PA-C [address] [place], [place] [address] Assigned Endocrinology Provider 07/30/23
--- OUTSIDE RECORDS SUMMARY | 2024-01-20 14:43 | XMS_ITS | Encounter Summary ---
Author Organization [facility] Address [address] [place] [address] Care Team Providers Care Glass Furnace Tender Name Role Phone Unavailable Primary Care Provider Unavailabl e Encounter Details Date Type Department Care Team (Late st Contact Info) Description 10/05/2003 Historical Ophthalmology RST OPH Yvon Davidson M.D. Social History Tobacco Use Types Packs/Day Years Used Date Smoking Tobacco: Never Assessed Sex and Gender Information Value Date Recorded Sex Assigned at Male 12/12/2022 9:16 AM CDT Gender Identity Male 05/26/2017 2:12 PM TELECOMMUNICATIONS ENGINEER Sexual Orientation Straight 05/26/2017 2: 12 PM TELECOMMUNICATIONS ENGINEER documented as of this encounter Progress Notes [...] accommodative esotropia CDM Reports - [facility]YE[facility] Id: [id number] Status: Fnl documented in this encounter Plan of Treatment Not on file documented as of this encounter Visit Diagnoses Not on filedocumented in this encounter
--- OUTSIDE RECORDS SUMMARY | 2024-01-20 14:43 | XMS_ITS | Encounter Summary ---
Author Organization [facility] Address [address] [place] [address] Care Team Providers Care Consumer Loan Officer Name Role Phone Unavailable Primary Care [...] CDT Gender Identity Male 05/26/2017 2:12 PM READY TO WEAR DEPARTMENT MANAGER Sexual Orientation Straight 05/26/2017 2: 12 PM READY TO WEAR DEPARTMENT MANAGER documented as of this encounter Progress Notes * Hever Villanueva M.D. - 11/29/2008 10:11 AM CDT Eye General HISTORY OF PRESENT ILLNESS 13 [place] 5 month old male with spina bifida and ASSISTANT COUNTY ENGINEER shunt here for orthoptic measurements to evaluate [...] neurological nystagmus #4 Torticollis secondary to #3. [facility] Reports - EYEGEN Id: [id number] Status: Fnl documented in this encounter Plan of Treatment Not on file documented as of this encounter Visit Diagnoses Not on filedocumented in this encounter
--- OUTSIDE RECORDS SUMMARY | 2024-01-20 14:43 | XMS_ITS | Encounter Summary ---
Author Organization [facility] Address [address] [place] [address] Care Team Providers Care Log Feeder Name Role Phone Unavailable Primary Care [...] CDT Gender Identity Male 05/26/2017 2:12 PM FINANCIAL HEALTH COUNSELOR Sexual Orientation Straight 05/26/2017 2: 12 PM FINANCIAL HEALTH COUNSELOR documented as of this encounter Progress Notes [...] #4 Astigmatism CDM Reports - [facility]YE[facility] Id: [id number] Status: Fnl documented in this encounter Plan of Treatment Not on file documented as of this encounter Visit Diagnoses Not on filedocumented in this encounter
--- OUTSIDE RECORDS SUMMARY | 2024-01-20 14:43 | XMS_ITS | Encounter Summary ---
Author Organization [facility] Address [address] [place] [address] Care Team Providers Care Student Counsellor Name Role Phone Unavailable Primary Care Provider Unavailabl e Encounter Details Date Type Department Care Team (Late st Contact Info) Description 04/04/2007 Historical Ophthalmology RST OPH Hever Villanueva M.D. Social History Tobacco Use Types Packs/Day Years Used Date Smoking Tobacco: Never Assessed Sex and Gender Information Value Date Recorded Sex Assigned at Male 12/12/2022 9:16 AM CDT Gender Identity Male 05/26/2017 2:12 PM SOFTWARE TOOLS ENGINEER Sexual Orientation Straight 05/26/2017 2: 12 PM SOFTWARE TOOLS ENGINEER documented as of this encounter Progress [...] #3 Nystagmus CDM Reports - [facility] Id: [id number] Status: Fnl documented in this encounter Plan of Treatment Not on file documented as of this encounter Visit Diagnoses Not on filedocumented in this encounter
--- OUTSIDE RECORDS SUMMARY | 2024-01-20 14:43 | XMS_ITS | Encounter Summary ---
Author Organization [facility] Address [address] [place] [address] Care Team Providers Care Shank Pinner Name Role Phone Unavailable Primary Care Provider Unavailabl e Encounter Details Date Type Department Care Team (Late st Contact Info) Description 10/07/2007 Historical Ophthalmology RST OPH Hever Villanueva M.D. Social History Tobacco Use Types Packs/Day Years Used Date Smoking Tobacco: Never Assessed Sex and Gender Information Value Date Recorded Sex Assigned at Male 12/12/2022 9:16 AM CDT Gender Identity Male 05/26/2017 2:12 PM TREASURY ASSISTANT Sexual Orientation Straight 05/26/2017 2: 12 PM TREASURY ASSISTANT documented as of this encounter Progress [...] angle-residual esotropia CDM Reports - [facility] Id: [id number] Status: Fnl documented in this encounter Plan of Treatment Not on file documented as of this encounter Visit Diagnoses Not on filedocumented in this encounter
--- OUTSIDE RECORDS SUMMARY | 2024-01-20 14:43 | XMS_ITS | Encounter Summary ---
Author Organization [facility] Address [address] [place] [address] Care Team Providers Care Portfolio Analyst Name Role Phone Unavailable Primary Care Provider Unavailabl e Encounter Details Date Type Department Care Team (Late st Contact Info) Description 09/23/2017 Historical Ophthalmology RST OPH Hever Villanueva M.D. Social History Tobacco Use Types Packs/Day Years Used Date Smoking Tobacco: Never Sex and Gender Information Value Date Recorded Sex Assigned at Male 12/12/2022 9:16 AM CDT Gender Identity Male 05/26/2017 2:12 PM BLOCK CUBER Sexual Orientation Straight 05/26/2017 2: 12 PM BLOCK CUBER documented as of this encounter Progress Notes [...] to computer. #8 Astigmatism CDM Reports - [facility] Id: [id number] Status: Fnl documented in this encounter Plan of Treatment Not on file documented as of this encounter Visit Diagnoses Not on filedocumented in this encounter Additional Health Concerns Assessment Noted Time PHQ-9 Depression Total Score: 16 06/14/ 017 12:09 PM BLOCK CUBER documented as of this encounter
--- OUTSIDE RECORDS SUMMARY | 2024-01-20 14:43 | XMS_ITS | Encounter Summary ---
Author Organization [facility] Address [address] [place] [address] Care Team Providers Care Car Starter Name Role Phone Unavailable Primary Care Provider Unavailabl e Encounter Details Date Type Department Care Team (Late st Contact Info) Description 12/19/2003 Historical Ophthalmology RST OPH Yvon Davidson M.D. Social History Tobacco Use Types Packs/Day Years Used Date Smoking Tobacco: Never Assessed Sex and Gender Information Value Date Recorded Sex Assigned at Male 12/12/2022 9:16 AM CDT Gender Identity Male 05/26/2017 2:12 PM DIGITAL ACCOUNT COORDINATOR Sexual Orientation Straight 05/26/2017 2: 12 PM DIGITAL ACCOUNT COORDINATOR documented as of this encounter Progress [...] of his glasses, advised mother tocheck with tour actor recheck 1 yr, sooner prn DIAGNOSIS #1 partially accommodative esotropia CDM Reports - [facility] Id: [id number] Status: Fnl documented in this encounter Plan of Treatment Not on file documented as of this encounter Visit Diagnoses Not on filedocumented in this encounter
--- OUTSIDE RECORDS SUMMARY | 2024-01-20 14:43 | XMS_ITS | Encounter Summary ---
Author Organization [facility] Address [address] [place] [address] Care Team Providers Care Pipe Buffer Name Role Phone Unavailable Primary Care Provider Unavailabl e Encounter Details Date Type Department Care Team (Late st Contact Info) Description 11/02/2011 Historical Ophthalmology RST OPH Hever Villanueva M.D. Social History Tobacco Use Types Packs/Day Years Used Date Smoking Tobacco: Never Assessed Sex and Gender Information Value Date Recorded Sex Assigned at Male 12/12/2022 9:16 AM CDT Gender Identity Male 05/26/2017 2:12 PM HYDRAULIC GOVERNOR ASSEMBLER Sexual Orientation Straight 05/26/2017 2: 12 PM HYDRAULIC GOVERNOR ASSEMBLER documented as of this encounter Progress Notes * Hevre Villanueva M.D. - 11/02/2011 2:42 PM CDT [...] fixates monocularly CDM Reports - [facility] Id: [id number] Status: Fnl documented in this encounter Plan of Treatment Not on file documented as of this encounter Visit Diagnoses Not on filedocumented in this encounter
--- OUTSIDE RECORDS SUMMARY | 2024-01-20 14:43 | XMS_ITS | Referral Summary ---
Author Organization [facility] Address [address] [place] [address] Care Team Providers Care Technical Sales Specialist Name Role Phone Unavailable Primary Care Provider Unavailabl e Source Comments Patient records contain information from all sites at [facility]. For routine questions regarding patient records, call [phone] during business hours, M-F 8:00 AM - 5:00 PM Central Time. Record requests for emergency care only can be directed to [phone] at any time.[facility] Allergies Active Allergy Reactions Criticality Noted Date Comments Adhesive Tape-Silicones Rash 04/13/2013 Latex Other (see comments) 09/12/2002 Precaution Mold Other (see comments) 06/06/2012 Max mold- Respiratory Distress Pollen Extracts Shortness of [...] your living situation today? I have a [facility] place to live 03/25/2023 Sex and Gender Information Value Date Recorded Sex Assigned at Male 12/12/2022 9:16 AM CDT Gender Identity Male 05/26/2017 2:12 PM GARAGE DOOR INSTALLER Sexual Orientation Straight 05/26/2017 2: 12 PM GARAGE DOOR INSTALLER Last Filed Vital Signs Vital Sign Reading Time Taken Comments Blood Pressure 134/73 04/01/2023 1:29 PM CDT Pulse 93 04/01/2023 1:29 PM CDT Temperature 36.4 ??C (97.6 ??F) 04/01/2023 1:29 PM CD T Respiratory Rate 16 06/20/2014 8:19 AM GARAGE DOOR INSTALLER Oxygen Saturation - - Inhaled Oxygen Concentration - - Weight 67.8 kg (149 lb 9.3 oz) 04/01/2023 1:29 P M CDT Height 154.6 cm (5' 0.87) 04/01/2023 1:29 PM CD T Body Mass Index 28.39 04/01/2023 1:29 PM CDT Plan of Treatment Not on file Medical Devices Implanted Type Area Technology Lead Device Identifier Shelf Expiration Date Model / Serial / Lot Conversions - Default Historical Implant Device Implanted:12/26 (Quantity not on file) CSF Management Device Description:Device Status Te xt - CSF Shunt/Valve. CHIEF INVESTMENT OFFICER Shunt. Small Frag-Screw Jerad 3.5x20 - Dominguez [...] - HARDWARE-7600. R M-Plate Inter P Slot [id number] - Dominguez 7668 Implanted:Qty: 1 on 08/07/2003 Hardware e.g. pins/screws/ rods George and Nephew Description:Device Manufactu rer - George&Nephew. Device Status Text - HARDWARE-7668. Standard-Screw Jerad 4.5 X 46 - Dominguez [id number] Implanted:Qty: 1 on 04/21/2007 Hardware e.g. pins/screws/ rods Depuy Synthes Description:Device Manufactu rer - Synthes. Device Status Text - HARDWARE-54046. Standard-Screw Jerad 4.5 X 30 - Dominguez [id number] Implanted:Qty: 3 on 04/21/2007 Hardware e.g. pins/screws/ rods Depuy Synthes Description:Device Manufactu rer - Synthes. Device Status Text - HARDWARE-01937. Lc Dc-Plate Ss Narr. 4.5x 8h - Dominguez [id number] Implanted:Qty: 1 on 04/21/2007 Hardware e.g. pins/screws/ rods Depuy Synthes Description:Device Manufactu rer - Synthes. Device Status Text - HARDWARE-8528. K-Wire 2.0 X 150 - Dominguez [id number] Implanted:Qty: 1 on 04/21/2007 Hardware e.g. pins/screws/ rods Depuy Synthes Description:Device Manufactu rer - Synthes. Device Status Text - HARDWARE-7802. Standard-Screw Jerad 4.5 X 36 - Dominguez [id number] Implanted:Qty: 3 on 04/21/2007 Hardware e.g. pins/screws/ rods Depuy Synthes Description:Device Manufactu rer - Synthes. Device Status Text - HARDWARE-81128. Standard-Screw Jerad 4.5 X 32 - Dominguez [id number] Implanted:Qty: 1 on 04/21/2007 Hardware e.g. pins/screws/ rods Depuy Synthes Description:Device Manufactu rer - Synthes. Device Status Text - HARDWARE-65151. Standard-Screw Jerad 4.5 X 34 - Dominguez [id number] Implanted:Qty: 1 on 04/21/2007 Hardware e.g. pins/screws/ rods Depuy Synthes Description:Device Manufactu rer - Synthes. Device Status Text - HARDWARE-40866. Staple Cartridge-3m 13 X 10 - Dominguez [id number] Implanted:Qty: 1 on 07/23/2008 Hardware e.g. pins/screws/ rods 3M Description:Device Manufactu rer - 3M. Device Status Text - HARDWARE-7241. K-Wire-Ss 4 Smooth .062 - Dominguez 871 Implanted:Qty: 2 on 07/23/2008 Hardware e.g. pins/screws/ rods [place] Description:Device Manufactu rer - Mony Che.. Device Status Text - HARDWARE-871. Pin Pérez Smooth Single End 5 64 - Dominguez [id number] Implanted:Qty: 1 on 07/23/2008 Hardware e.g. pins/screws/ rods [place] Description:Device Manufactu rer - Mony Che.. Device Status Text - HARDWARE-9289. Conversions - Default Historical Implant Device Implanted:12/26 (Quantity not on file) Hardware e.g. pins/screws/ rods Left: Leg Description:Body Location - Thigh L. Device Status Text - Hardware. Plate in Proximal Left Femur. Cath Powerport Mri W 8.0fr - Dominguez [id number] Implanted:Qty: 1 on 03/23/2013 Implanted Port Single Lumen C.R.Bard Description:Device Manufactu rer Bard [facility]. Device Status Text - IVAD/PORT-999043. [facility] Data - ][id number]. Duragen Suturable 2x2 - Dominguez [id number] Implanted:Qty: 1 on 02/24/2006 Mesh or Patch Other/Legacy - See Implant Description Integra Description:Device Manufactu rer - Integra Lifesciences Che. Body Location - Other. Not Applicable. Device Status Text - MESHPATCH-294710. Patch Dura-Guard Sn 4x 4 - Dominguez [id number] Implanted:Qty: 1 on 06/18/2014 Mesh or Patch Other/Legacy - See Implant Description Synovis Description:Device Manufactu rer - Synovis. Body Location - Other. Not Applicable. Device Status Text - MESHPATCH-638034. Legacy Screw Set Ti Breakoff - Dominguez [id number] Implanted:Qty: 9 on 06/18/2009 Spine Implant Medtronic Description:Device Manufactu rer - Medtronic Sofamor [place]ane[place]. Device Status Text - SPINE IMP-92740. Legacy Screw Fixed Ang 6.5 X 35 Ti - Dominguez [id number] Implanted:Qty: 1 on 06/18/2009 Spine Implant Medtronic Description:Device Manufactu rer - Medtronic Sofamor [place]. Device Status Text - SPINE IMP-09558. Legacy Screw Fixed Angled 7.5 X 45 Ti - Dominguez [id number] Implanted:Qty: 1 on 06/18/2009 Spine Implant Medtronic Description:Device Manufactu rer - Medtronic Sofamor Danek. Device Status Text - SPINE IMP-99720. Legacy Staple Ti 15mm - Dominguez [id number] Implanted:Qty: 4 on 06/18/2009 Spine Implant Medtronic Description:Device Manufactu rer - Medtronic Sofamor [place]k. Device Status Text - SPINE IMP-82667. Legacy Staple Ti 13mm - Dominguez [id number] Implanted:Qty: 3 on 06/18/2009 Spine Implant Medtronic Description:Device Manufactu rer - Medtronic Sofamor [place]k. Device Status Text - SPINE IMP-72410. Tsrh-Phillip Ti 1 4 Flex L51cm - Dominguez [id number] Implanted:Qty: 1 on 06/18/2009 Spine Implant Medtronic Description:Device Manufactu rer - Medtronic Gramovox Inc. Device Status Text - SPINE IMP-06408. Legacy Screw Fixed Angled 7.5 X 40 Ti - Dominguez [id number] Implanted:Qty: 1 on 06/18/2009 Spine Implant Medtronic Description:Device Manufactu rer - Medtronic Sofamor [place]k. Device Status Text - SPINE IMP-17126. Legacy Screw Fixed Ang 6.5 X 30 Ti - Dominguez [id number] Implanted:Qty: 3 on 06/18/2009 Spine Implant Medtronic Description:Device Manufactu rer - Medtronic Sofamor D[place]k. Device Status Text - SPINE IMP-58636. Legacy Screw Fixed Ang 6.5 X 40 Ti - Dominguez [id number] Implanted:Qty: 3 on 06/18/2009 Spine Implant Medtronic Description:Device Manufactu rer - Medtronic Sofamor Danek. Device Status Text - SPINE IMP-17530. Conversions - Default Historical Implant Device Implanted:12/26 (Quantity not on file) Spine Implant Other/Legacy - See Implant Description Description:Body Location - Generalize. T8-L4. Device Status Text - Spine Implant. Spine Stabilizing Instrumentation.
--- OUTSIDE RECORDS SUMMARY | 2024-01-20 14:43 | XMS_ITS | Encounter Summary ---
Author Organization [facility] Address [address] [place] [address] Care Team Providers Care Healthcare Science Specialist Name Role Phone Unavailable Primary Care [...] CDT Gender Identity Male 05/26/2017 2:12 PM THREAD WINDER Sexual Orientation Straight 05/26/2017 2: 12 PM THREAD WINDER documented as of this encounter Progress [...] DIAGNOSIS #1 good result. [facility] Id: [id number] Status: Fnl documented in this encounter Plan of Treatment Not on file documented as of this encounter Visit Diagnoses Not on filedocumented in this encounter
--- OUTSIDE RECORDS SUMMARY | 2024-01-20 14:43 | XMS_ITS | Encounter Summary ---
Author Organization [facility] Address [address] [place] [address] Care Team Providers Care Telegraph Editor Name Role Phone Unavailable Primary Care Provider Unavailabl e Encounter Details Date Type Department Care Team (Late st Contact Info) Description 07/05/2015 Historical Ophthalmology RST OPH Hever Villanueva M.D. Social History Tobacco Use Types Packs/Day Years Used Date Smoking Tobacco: Never Assessed Sex and Gender Information Value Date Recorded Sex Assigned at Male 12/12/2022 9:16 AM CDT Gender Identity Male 05/26/2017 2:12 PM ICE HOUSE SUPERVISOR Sexual Orientation Straight 05/26/2017 2: 12 PM ICE HOUSE SUPERVISOR documented as of this encounter Progress [...] to computer. #8 Astigmatism CDM Reports - [email or web address] Id: [id number] Status: Fnl documented in this encounter Plan of Treatment Not on file documented as of this encounter Visit Diagnoses Not on filedocumented in this encounter Additional Health Concerns Assessment Noted Time PHQ-9 Depression Total Score: 8 10/24/19 15 11:06 AM CDT documented as of this encounter
--- OUTSIDE RECORDS SUMMARY | 2024-01-20 14:43 | XMS_ITS | Encounter Summary ---
Author Organization [facility] Address [address] [place] [address] Care Team Providers Care Air Traffic Controller Name Role Phone Unavailable Primary Care Provider [...] Gender Identity Male 05/26/2017 2:12 PM SOFTWARE PROGRAM MANAGER Sexual Orientation Straight 05/26/2017 2: 12 PM SOFTWARE PROGRAM MANAGER documented as of this encounter Progress [...] [facility] Id: [id number] Status: Fnl documented in this encounter Plan of Treatment Not on file documented as of this encounter Visit Diagnoses Not on filedocumented in this encounter
--- OUTSIDE RECORDS SUMMARY | 2024-01-20 14:43 | XMS_ITS | Encounter Summary ---
Author Organization [facility] Address [address] [place] [address] Care Team Providers Care Eye Clinic Manager Name Role Phone Unavailable Primary Care [...] CDT Gender Identity Male 05/26/2017 2:12 PM FOREIGN BANKNOTE TELLER Sexual Orientation Straight 05/26/2017 2: 12 PM FOREIGN BANKNOTE TELLER documented as of this encounter Progress [...] #3 nystagmus CDM Reports - [facility] Id: [id number] Status: Fnl documented in this encounter Plan of Treatment Not on file documented as of this encounter Visit Diagnoses Not on filedocumented in this encounter
--- OUTSIDE RECORDS SUMMARY | 2024-01-20 14:43 | XMS_ITS | Encounter Summary ---
Author Organization [facility] Address [address] [place] [address] Care Team Providers Care Social Science Manager Name Role Phone Unavailable Primary Care [...] CDT Gender Identity Male 05/26/2017 2:12 PM QUALITY ASSURANCE REPRESENTATIVE Sexual Orientation Straight 05/26/2017 2: 12 PM QUALITY ASSURANCE REPRESENTATIVE documented as of this encounter Progress Notes [...] both eyes CDM Reports - [facility]YE[facility] Id: [id number] Status: Fnl documented in this encounter Plan of Treatment Not on file documented as of this encounter Visit Diagnoses Not on filedocumented in this encounter
--- OUTSIDE RECORDS SUMMARY | 2024-01-20 14:43 | XMS_ITS | Encounter Summary ---
Author Organization [facility] Address [address] [place] [address] Care Team Providers Care Land Measurer Name Role Phone Unavailable Primary Care Provider Unavailabl e Encounter Details Date Type Department Care Team (Late st Contact Info) Description 07/09/2008 Historical Ophthalmology RST OPH Hever Villanueva M.D. Social History Tobacco Use Types Packs/Day Years Used Date Smoking Tobacco: Never Assessed Sex and Gender Information Value Date Recorded Sex Assigned at Male 12/12/2022 9:16 AM CDT Gender Identity Male 05/26/2017 2:12 PM EMERGENCY MANAGER Sexual Orientation Straight 05/26/2017 2: 12 PM EMERGENCY MANAGER documented as of this encounter Progress [...] #3 Torticollis CDM Reports - [facility] Id: [id number] Status: Fnl documented in this encounter Plan of Treatment Not on file documented as of this encounter Visit Diagnoses Not on filedocumented in this encounter
--- OUTSIDE RECORDS SUMMARY | 2024-01-20 14:44 | XMS_ITS | Encounter Summary ---
Author Organization [facility] Address [address] [place] [address] Care Team Providers Care Siebel Architect Name Role Phone Rob Tillman MD Primary Care Provider + [phone] Encounter Details Date Type Department Care Team (Late st Contact Info) Description 05/17/2018 Scanned History External to Transferred Record, Provider [facility] Social History Tobacco Use Types Packs/Day Years Used Date Smoking Tobacco: Never Smokeless Tobacco: Never Alcohol Use Standard Drinks/Week Comments Yes 0 (1 standard drink = 0.6 oz pur e alcohol) Sex and Gender Information Value Date Recorded Sex Assigned at Male 07/12/2021 3:57 PM RIGGER APPRENTICE Gender Identity Male 07/12/2021 3:57 PM RIGGER APPRENTICE Sexual Orientation Straight 07/12/2021 3: 57 PM RIGGER APPRENTICE documented as of this encounter Plan of Treatment Not on file documented as of this encounter Visit Diagnoses Not on filedocumented in this encounter Care Teams Siebel Architect Relationship Specialty Start Date End Date Rob Tillman MD [address] [place] [address] PCP - General Physical Medicine and Rehabilitation 08/01/19 01/13/23 documented as of this encounter
--- OUTSIDE RECORDS SUMMARY | 2024-01-20 14:44 | XMS_ITS | Encounter Summary ---
Author Organization [facility] Address [address], [place] [address] Care Team Providers Care Nnp Name Role Phone Rob Tillman MD Primary Care Provider [phone] Encounter Details Date Type Department Care Team (Late st Contact Info) Description 05/31/2018 Correspondence External to External, [place] [address] PRIOR AUTH Social History Tobacco Use Types Packs/Day Years Used Date Smoking Tobacco: Never Smokeless Tobacco: Never Alcohol Use Standard Drinks/Week Comments Yes 0 (1 standard drink = 0.6 oz pur e alcohol) Sex and Gender Information Value Date Recorded Sex Assigned at Male 07/12/2021 3:57 PM RESIDENTIAL SUPPORT WORKER Gender Identity Male 07/12/2021 3:57 PM RESIDENTIAL SUPPORT WORKER Sexual Orientation Straight 07/12/2021 3: 57 PM RESIDENTIAL SUPPORT WORKER documented as of this encounter Plan of Treatment Not on file documented as of this encounter Visit Diagnoses Not on filedocumented in this encounter Care Teams Nnp Relationship Specialty Start Date End Date Rob Tillman MD [address] [place] [address] PCP - General Physical Medicine and Rehabilitation 08/01/19 01/13/23 documented as of this encounter
--- OUTSIDE RECORDS SUMMARY | 2024-01-20 14:44 | XMS_ITS | Encounter Summary ---
Author Organization [facility] Address [address] [address] Care Team Providers Care Raw Scales Operator Name Role Phone Rob Tillman MD Primary Care Provider + [phone] Encounter Details Date Type Department Care Team [...] Sex Assigned at Male 07/12/2021 3:57 PM WINDOWS VMWARE ADMINISTRATOR Gender Identity Male 07/12/2021 3:57 PM WINDOWS VMWARE ADMINISTRATOR Sexual Orientation Straight 07/12/2021 3: 57 PM WINDOWS VMWARE ADMINISTRATOR documented as of this encounter Plan of Treatment Not on file documented as of this encounter Visit Diagnoses Not on filedocumented in this encounter Care Teams Raw Scales Operator Relationship Specialty Start Date End Date Rob Tillman MD [address] [place] [address] PCP - General Physical Medicine and Rehabilitation 08/01/19 01/13/23 documented as of this encounter
--- OUTSIDE RECORDS SUMMARY | 2024-01-20 14:44 | XMS_ITS | Encounter Summary ---
Author Organization [facility] Address [address] [place] [address] Care Team Providers Care Pouncer Name Role Phone Rob Tillman MD Primary Care Provider + [phone] Encounter Details Date Type Department Care Team (Late st Contact Info) Description 04/05/2017 Scanned History External to Transferred Record, Provider [facility] Social History Tobacco Use Types Packs/Day Years Used Date Smoking Tobacco: Never Assessed Sex and Gender Information Value Date Recorded Sex Assigned at Male 07/12/2021 3:57 PM MARINE ELECTRICIAN APPRENTICE Gender Identity Male 07/12/2021 3:57 PM MARINE ELECTRICIAN APPRENTICE Sexual Orientation Straight 07/12/2021 3: 57 PM MARINE ELECTRICIAN APPRENTICE documented as of this encounter Plan of Treatment Not on file documented as of this encounter Visit Diagnoses Not on filedocumented in this encounter Care Teams Pouncer Relationship Specialty Start Date End Date Rob Tillman MD [address] [place] [address] PCP - General Physical Medicine and Rehabilitation 08/01/19 01/13/23 documented as of this encounter
--- OUTSIDE RECORDS SUMMARY | 2024-01-20 14:44 | XMS_ITS | Encounter Summary ---
Author Organization [facility] Address [address] [place] [address] Care Team Providers Care Liquor Tester Name Role Phone Rob Tillman MD Primary Care Provider + [phone] Encounter Details Date Type Department Care Team (Late st Contact Info) Description 03/17/2018 Scanned History External to Transferred Record, Provider [facility] Social History Tobacco Use Types Packs/Day Years Used Date Smoking Tobacco: Never Assessed Sex and Gender Information Value Date Recorded Sex Assigned at Male 07/12/2021 3:57 PM GAS APPLIANCE SERVICER HELPER Gender Identity Male 07/12/2021 3:57 PM GAS APPLIANCE SERVICER HELPER Sexual Orientation Straight 07/12/2021 3: 57 PM GAS APPLIANCE SERVICER HELPER documented as of this encounter Plan of Treatment Not on file documented as of this encounter Visit Diagnoses Not on filedocumented in this encounter Care Teams Liquor Tester Relationship Specialty Start Date End Date Rob Tillman MD [address] [place] [address] PCP - General Physical Medicine and Rehabilitation 08/01/19 01/13/23 documented as of this encounter
--- OUTSIDE RECORDS SUMMARY | 2024-01-20 14:44 | XMS_ITS | Encounter Summary ---
Author Organization [facility] Address [address] [place] [address] Care Team Providers Care Goring Cutter Name Role Phone Rob Tillman MD Primary Care Provider + [phone] Encounter Details Date Type Department Care Team (Late st Contact Info) Description 04/23/2018 Scanned History Security Contact - Elina Bal Transferred Record, Provider [facility] Social History Tobacco Use Types Packs/Day Years Used Date Smoking Tobacco: Never Smokeless Tobacco: Never Alcohol Use Standard Drinks/Week Comments Yes 0 (1 standard drink = 0.6 oz pur e alcohol) Sex and Gender Information Value Date Recorded Sex Assigned at Male 07/12/2021 3:57 PM CURRICULUM WRITER Gender Identity Male 07/12/2021 3:57 PM CURRICULUM WRITER Sexual Orientation Straight 07/12/2021 3: 57 PM CURRICULUM WRITER documented as of this encounter Plan of Treatment Not on file documented as of this encounter Visit Diagnoses Not on filedocumented in this encounter Care Teams Goring Cutter Relationship Specialty Start Date End Date Rob Tillman MD [address] [place] [address] PCP - General Physical Medicine and Rehabilitation 08/01/19 01/13/23 documented as of this encounter
--- OUTSIDE RECORDS SUMMARY | 2024-01-20 14:44 | XMS_ITS | Encounter Summary ---
Author Organization [facility] Address [address], [place] [address] Care Team Providers Care Psychiatric Clinician Name Role Phone Rob Tillman MD Primary Care Provider + [phone] Encounter Details Date Type Department Care Team (Latest Contact Info) Description 08/15/2019 Correspondence Physiatry/Physical Medicine at [facility] [address] [facility] [place] [address] Rob Tillman MD [address] [place], [place] [id number] [facility] SERVICES ORDER Social History Tobacco Use Types Packs/Day Years Used Date Smoking Tobacco: Never Smokeless Tobacco: Never Alcohol Use Standard Drinks/Week Comments Yes 0 (1 standard drink = 0.6 oz pur e alcohol) occasional PHQ-2 Answer Date Recorded PHQ-2 Score 6 06/29/2019 Sex and Gender Information Value Date Recorded Sex Assigned at Male 07/12/2021 3:57 PM HARDWARE ENGINEER Gender Identity Male 07/12/2021 3:57 PM HARDWARE ENGINEER Sexual Orientation Straight 07/12/2021 3: 57 PM HARDWARE ENGINEER documented as of this encounter Plan of Treatment Not on file documented as of this encounter Visit Diagnoses Not on filedocumented in this encounter Care Teams Psychiatric Clinician Relationship Specialty Start Date End Date Rob Tillman MD [address] [place], [place] [id number] PCP - General Physical Medicine and Rehabilitation 08/01/19 01/13/23 documented as of this encounter
--- OUTSIDE RECORDS SUMMARY | 2024-01-20 14:44 | XMS_ITS | Encounter Summary ---
Author Organization [facility] Address [address] [address] Care Team Providers Care Maturity Checker Name Role Phone Rob Tillman MD Primary Care Provider + [phone] Encounter Details Date Type Department Care Team (Latest Contact Info) Description 08/28/2019 Correspondence Physiatry/Physical Medicine at [facility] [address] [place], [place] [id number] Rob Tillman MD [address] [place] [address] RX LETTER CERTIFICATION OF MEDICAL NECESSITY Social History Tobacco Use Types Packs/Day Years Used Date Smoking Tobacco: Never Smokeless Tobacco: Never Alcohol Use Standard Drinks/Week Comments Yes 0 (1 standard drink = 0.6 oz pur e alcohol) occasional PHQ-2 Answer Date Recorded PHQ-2 Score 6 06/29/2019 Sex and Gender Information Value Date Recorded Sex Assigned at Male 07/12/2021 3:57 PM LADIES' LOCKER ROOM ATTENDANT Gender Identity Male 07/12/2021 3:57 PM LADIES' LOCKER ROOM ATTENDANT Sexual Orientation Straight 07/12/2021 3: 57 PM LADIES' LOCKER ROOM ATTENDANT documented as of this encounter Plan of Treatment Not on file documented as of this encounter Visit Diagnoses Not on filedocumented in this encounter Care Teams Maturity Checker Relationship Specialty Start Date End Date Rob Tillman MD [address] [place], [place] [phone] PCP - General Physical Medicine and Rehabilitation 08/01/19 01/13/23 documented as of this encounter
--- OUTSIDE RECORDS SUMMARY | 2024-01-20 14:44 | XMS_ITS | Encounter Summary ---
Author Organization [employer] Address [address], [place] [address] Care Team Providers Care Rodent Exterminator Name Role Phone Rob Tillman MD Primary Care Provider + [phone] Encounter Details Date Type Department Care Team [...] Sex Assigned at Male 07/12/2021 3:57 PM DRAW PRESS OPERATOR Gender Identity Male 07/12/2021 3:57 PM DRAW PRESS OPERATOR Sexual Orientation Straight 07/12/2021 3: 57 PM DRAW PRESS OPERATOR documented as of this encounter Plan of Treatment Not on file documented as of this encounter Visit Diagnoses Not on filedocumented in this encounter Care Teams Rodent Exterminator Relationship Specialty Start Date End Date Rob Tillman MD [address] [place] [address] PCP - General Physical Medicine and Rehabilitation 08/01/19 01/13/23 documented as of this encounter
--- OUTSIDE RECORDS SUMMARY | 2024-01-20 14:44 | XMS_ITS | Clinical Summary ---
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 [facility] Allergies Active Allergy Reactions Criticality Noted Date Comments Adhesive Rash 04/13/2013 Latex Other, see comments 09/12/2002 Precaution Molds & Smuts Other, see comments 06/06/2012 Blackfoot mold- Respiratory Distress Other Swelling 06/02/2012 Spider [...] bimedial advancement 05/09/08 09/23/2018 Overview: Surgery at [facility] - see scanned records Hodgkin lymphoma, unspecifie d, lymph nodes of axilla and upper limb 04/21/2018 Spina bifida 04/21/2018 Attention deficit hyperactiv ity disorder (ADHD), combined type 06/07/2017 Major depressive disorder, single episode, sever e 06/07/2017 Mild intermittent asthma 06/03/2006 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 08/26/2004 Immunizations Name Administration Dates Next Due Influenza IIV4 (Quadrivalent) 0.5mL (87902) 07/2019 Pfizer Monovalent 12+ Purple Top 11/15/2020,09/28 [...] Sex Assigned at Male 07/12/2021 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 Gender Identity Male 07/12/2021 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 Sexual Orientation Straight 07/12/2021 3: 57 PM HEAD INSPECTOR Last Filed Vital Signs Vital Sign Reading Time Taken Comments Blood Pressure 137/79 06/12/2022 11:05 AM HEAD INSPECTOR Pulse 86 06/12/2022 11:05 AM HEAD INSPECTOR Temperature 36.6 ??C (97.8 ??F) 05/13/2022 3:49 PM CS T Respiratory Rate 18 05/13/2022 3:49 PM HEAD INSPECTOR Oxygen Saturation 100% 05/13/2022 3:49 PM HEAD INSPECTOR Inhaled Oxygen Concentration - - Weight 69.3 kg (152 lb 12.8 oz) 05/13/2022 3:49 PM HEAD INSPECTOR Height 154.9 cm (5' 1) 12/18/2020 2:08 [...] Self [address] [place] [id number] Mary BethFly lara Personal/Family Self [address] [place] [id number]
--- OUTSIDE RECORDS SUMMARY | 2024-01-20 14:44 | XMS_ITS | Encounter Summary ---
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
== END 2024-01-20 14:40 | disposition home or self-care (01) ==
LOC: RAD 14:40
PROVIDERS: PCP Family Medicine; Visit Provider Nurse Practitioner Family
DX: R06.09 Other forms of dyspnea (principal); I35.1 Nonrheumatic aortic (valve) insufficiency; I34.0 Nonrheumatic mitral (valve) insufficiency; R53.83 Other fatigue
CPT/HCPCS: 93306

== ENCOUNTER 2024-10-20 09:10 | Outpatient (CLI) | payer OTHER, SELFPAY ==
[2024-10-20 13:50] LABS: Albumin* 4.7 g/dL (3.3-5.0); Chloride* 101 mmol/L (96-114); Potassium* 4.3 mmol/L (3.6-5.1); Sodium* 139 mmol/L (135-149)
[2024-10-20 13:52] LABS: Alanine Aminotransferase* 61 U/L (4-50); Aspartate Amino Transferase* 39 U/L (12-35); Blood Urea Nitrogen* 16 mg/dL (5-24); Creatinine* 1.1 mg/dL (0.5-1.5); Estimated Glomerular Filt Rate 94 ml/min
[2024-10-20 13:53] LABS: Alkaline Phosphatase* 79 U/L (40-150); Anion Gap 11 mEq/L (7-15); Bilirubin Total* 0.9 mg/dL (0.1-1.5); Calcium* 9.9 mg/dL (8.4-10.6); Carbon Dioxide* 27 mmol/L (20-32); Cholesterol* 212 mg/dL (90-199); Glucose* 81 mg/dL (60-115); HDL Cholesterol* 35 mg/dL (>=40); Iron* 160 ug/dL (49-181); LDL Cholesterol Calculated 144 mg/dL (<100); Magnesium* 2.2 mg/dL (1.5-2.6); Total Protein* 7.5 g/dL (6.0-8.3); Triglycerides* 165 mg/dL (40-149)
[2024-10-20 14:04] LABS: Vitamin D 25 Hydroxy* 50 ng/mL (30-80)
[2024-10-20 14:50] LABS: Vitamin B12* > 1000 pg/mL (243-894)
[2024-10-21 17:17] LABS: Folate, Serum >22.3 ng/mL (>=5.9)
[2024-10-21 22:57] LABS: Total T3 96 ng/dL (80-200)
[2024-10-22 00:10] LABS: Zinc, Serum/Plasma 85.5 ug/dL (60.0-120.0)
== END 2024-10-20 09:11 | disposition home or self-care (01) ==
LOC: NPINS 09:11
PROVIDERS: PCP Family Medicine; Visit Provider Nurse Practitioner Psychiatric/Mental Health
DX: F84.0 Autistic disorder (principal); R79.89 Other specified abnormal findings of blood chemistry; R74.8 Abnormal levels of other serum enzymes; Z79.899 Other long term (current) drug therapy; Z13.820 Encounter for screening for osteoporosis; Z13.29 Encounter for screening for other suspected endocrine disorder
CPT/HCPCS: 80053; 80061; 82306; 82607; 82728; 82746; 83036; 83540; 83735; 84439; 84443; 84480; 84630